=== PATIENT | male | born 1960 | race Caucasian/White ===

== ENCOUNTER 2017-08-07 23:31 | Inpatient (IN) | payer BC ==
[2017-08-07 23:44] VITALS: BMI 25.8
[2017-08-08 00:46] LABS: EOS % 1.5 % (0-4.5); HEMATOCRIT 45.8 % (35.4-49); HEMOGLOBIN 15.3 GM/dL (11.7-16.9); LYMPH % 22.8 % (8-40); MCH 30.6 pg (25.7-33.7); MCHC 33.3 g/dl (32.0-35.9); MEAN CELL VOLUME 91.9 fl (80-96); MONO % 9.5 % (3.8-10.2); NEUT % 65.2 % (42.8-82.8); PLATELET COUNT 317 K/MM3 (134-434); RBC 4.98 M/mm3 (4.00-5.60); RDW 14.7 % (11.9-15.9); WHITE BLOOD COUNT 12.3 K/mm3 (4.0-10.0)
[2017-08-08 01:15] LABS: ALBUMIN 3.6 g/dl (3.4-5.0); ANION GAP 12 (8-16); BLOOD UREA NITROGEN 27 mg/dL (7-18); CALCIUM 8.5 mg/dL (8.5-10.1); CHLORIDE 104 mmol/L (98-107); CO2 30 mmol/L (21-32); CREATININE 1.1 mg/dL (0.7-1.3); GLUCOSE,RANDOM 116 mg/dL (74-106); POTASSIUM 4.4 mmol/L (3.5-5.1); SGOT/AST 17 U/L (15-37); SGPT/ALT 20 U/L (12-78); SODIUM 146 mmol/L (136-145)
[2017-08-08 01:16] LABS: ALK PHOS 78 U/L (45-117); BILIRUBIN,TOTAL 0.3 mg/dL (0.2-1.0); TOT PROT 7.2 g/dl (6.4-8.2)
[2017-08-08] MEDS ORDERED: ENOXAPARIN NA (PORCINE) 100 MG/1 ML DISP.SYRIN SQ ONE (02:23)
[2017-08-08] MEDS ORDERED: ENOXAPARIN NA (PORCINE) 80 MG/0.8 ML DISP.SYRIN SQ ONE (02:26)
--- NOTE | 2017-08-08 03:41 | PDOC ---
History of Present Illness - General Chief Complaint: Pain, Acute Stated Complaint: LEG PAIN Time Seen by Provider: 08/08/17 00:05 - History of Present Illness Initial Comments: 08/08/17 03:32 CHIEF COMPLAINT: leg pain HISTORY OF PRESENT ILLNESS: 57 yo M with hx of hypertension, kidney stones, and femoral/popliteal arterial occlusions (s/p angioplasty [address] Stoner) presents to ED with pain to b/l legs, worse on L leg. He denies any chest pain or shortness of breath, but reports "numbness" to his left leg. Patient states he has had worsening discomfort over the past two weeks and that he saw his PCP Kika two days ago and had "lab work and an ultrasound done" but he has not received the results. When the pain worsened today he decided to come to the ER "because I wasn't taking any chances". No recent travel or sick contacts. PAST MEDICAL HISTORY: Denies past medical history FAMILY HISTORY: Denies SOCIAL HISTORY: Hx of smoking. SURGICAL HISTORY: Denies ALLERGIES: No known drug allergies REVIEW OF SYSTEMS General/Constitutional: Denies fever or chills. Denies weakness. HEENT: Denies change in vision. Denies ear pain or discharge. Denies sore throat. Cardiovascular: Denies chest pain or shortness of breath. Respiratory: Denies cough, wheezing, or hemoptysis. Gastrointestinal: Denies nausea, vomiting, diarrhea or constipation. Denies rectal bleeding. Genitourinary: Denies dysuria, frequency, or change in urination. Musculoskeletal: Bl leg pain, worse to left leg. Denies joint or muscle swelling or pain. Denies neck or back pain. Skin and breasts: Denies rash or easy bruising. Neurologic: Denies headache, vertigo, loss of consciousness, or loss of sensation. PHYSICAL EXAM General Appearance: Well-appearing, appropriately dressed. No apparent distress , no intoxication. HEENT: EOMI, PERRLA, normal ENT inspection, normal voice, TMs normal, pharynx normal. No conjunctival pallor. No photophobia, scleral icterus. Neck: Supple. Trachea midline. No tenderness, rigidity, carotid bruit, stridor , lymphadenopathy, or thyromegaly. Respiratory/Chest: Lungs CTAB. No shortness of breath, chest tenderness, respiratory distress, accessory muscle use. No crackles, rales, rhonchi, stridor , wheezing, dullness Cardiovascular: RRR. S1, S2. No JVD, murmur, bradycardia, tachycardia. Vascular Pulses: Dorsalis-Pedis pulses non palpable bilaterally. Gastrointestinal/Abdominal: Normal bowel sounds. Abdomen soft, non-distended. No tenderness or rebound tenderness. No organomegaly, pulsatile mass, guarding , hernia, hepatomegaly, splenomegaly. Lymphatic: No adenopathy, tenderness. Musculoskeletal/Extremities: B/l feet and lower legs cold to touch, no edema or erythema. Left leg pale with slight blue tinge, ischemic appearing .FROM of all extremities, normal capillary refill. Pelvis Stable. No CVA tenderness. Integumentary: Appropriate color, dry, warm. No cyanosis, erythema, jaundice or rash Neurologic: dinkey operator slate II-XII intact. Fully oriented, alert. Appropriate mood/affect. Motor strength 5/5. No appreciable EOM palsy, facial droop or sensory deficit. Past History - Past Medical History Allergies/Adverse Reactions: Allergies Allergy/AdvReac Type Severity Reaction Status Date / Time Penicillins Allergy Verified 08/07/17 23:42 Home Medications: Ambulatory Orders NK [No Known Home Medication] 08/08/17 Anemia: No Asthma: No Cancer: No Cardiac Disorders: No CVA: No COPD: No CHF: No Dementia: No Diabetes: No GI Disorders: No Disorders: No HTN: No Hypercholesterolemia: Yes Kidney Stones: Yes Liver Disease: No Seizures: No Thyroid Disease: No - Surgical History Abdominal Surgery: No Appendectomy: No Cardiac Surgery: No Cholecystectomy: No Lung Surgery: No Neurologic Surgery: No Orthopedic Surgery: No - Suicide/Smoking/Psychosocial Hx Smoking Status: Yes Smoking History: Never smoked Have you smoked in the past 12 months: No Number of Cigarettes Smoked Daily: 0 Cigars Per Day: 1 Information on smoking cessation initiated: No Hx Alcohol Use: No Drug/Substance Use Hx: No Substance Use Type: None Hx Substance Use Treatment: No *Physical Exam - Vital Signs Last Vital Signs Temp Pulse Resp BP Pulse Ox 97.6 F 102 H 20 141/84 98 08/07/17 23:42 08/07/17 23:42 08/07/17 23:42 08/07/17 23:42 08/07/17 23:42 ED Treatment Course - LABORATORY CBC & Chemistry Diagram: 08/08/17 00:30 08/08/17 00:30 - ADDITIONAL ORDERS Additional order review: Laboratory Results 08/08/17 08/08/17 00:30 00:30 D-Dimer > 5000 H Sodium 146 H Potassium 4.4 Chloride 104 Carbon Dioxide 30 D Anion Gap 12 BUN 27 H Creatinine 1.1 Creat Clearance w eGFR > 60 Random Glucose 116 H Calcium 8.5 Total Bilirubin 0.3 D AST 17 ALT 20 Alkaline Phosphatase 78 Total Protein 7.2 Albumin 3.6 08/08/17 00:30 RBC 4.98 MCV 91.9 MCHC 33.3 RDW 14.7 MPV 7.0 L Neutrophils % 65.2 Lymphocytes % 22.8 Monocytes % 9.5 Eosinophils % 1.5 Basophils % 1.0 - RADIOLOGY Radiology Studies Ordered: Category Date Time Status CHEST X-RAY PORTABLE* [RAD] Stat Radiology 08/08/17 02:44 Taken DUPLEX VASCUL US-2LEGS [US] Stat Ultrasound 08/08/17 00:29 Taken - Medications Given in the ED: ED Medications Discontinued Medications Generic Name Dose Route Start Last Admin Trade Name Freq PRN Reason Stop Dose Admin Enoxaparin Sodium 80 mg 08/08/17 02:23 08/08/17 02:30 Lovenox - SQ 08/08/17 02:24 80 mg ONCE ONE Administration Medical Decision Making - Medical Decision Making 08/08/17 03:49 57 yo M with hx of hypertension, kidney stones, and femoral/popliteal arterial occlusions (s/p angioplasty [address] Stoner) presents to ED with pain to b/l legs, worse on L leg. -duplex US b/l LE -CBc, CMP, D-dimer D-dimer >5000 US negative for DVT. Will admit for vascular consult and arteriogram in am. Discussed case with attending MD Carranza who accepts patient for inpatient admission. *DC/Admit/Observation/Transfer Diagnosis at time of Disposition: Arterial occlusion - Discharge Dispostion Admit: Yes - Referrals - Patient Instructions - Post Discharge Activity
--- NOTE | 2017-08-08 03:58 | HP ---
PCP: Lazaro Anand CHIEF COMPLAINT: Left leg pain HISTORY OF PRESENT ILLNESS: This is a 57 year old man who comes to the ED complaining of pain in his left calf. He reports that he first noted this pain while walking 5 days ago. It got worse as he continued to walk and improved with rest. It worsened over the next several days. He saw his PCP 2 days ago and says blood work and an US were done. Today the pain suddenly became worse where he could not bear weight on his left leg and it did not improve with rest , so he came to the ED. He says that both feet have been cold and numb for the last 5 days. His toes have been intermittently red and white. He says he has not been on any medication since the bypass surgery. He quit smoking cigarettes before the surgery but continues to smoke cigars. PAST MEDICAL HISTORY PAD PAST SURGICAL HISTORY Aortobifemoral bypass 2010 Left popliteal artery angioplasty 2011 Allergies Penicillins Allergy (Verified 08/07/17 23:42) Home Medications Medication Instructions Recorded NK [No Known Home Medication] 08/08/17 Social History: Smoking: Smokes 2 cigars/day. Quit smoking cigarettes 2010. Alcohol: Drinks a few shots of Marshall Hauser every night. Drugs: Denies Recent Travel: No Family History: Non-contributory REVIEW OF SYSTEMS CONSTITUTIONAL: Absent: fever, chills, diaphoresis, generalized weakness, malaise, loss of appetite, weight change HEENT: Absent: rhinorrhea, nasal congestion, throat pain, throat swelling, difficulty swallowing, mouth swelling, ear pain, eye pain, visual changes CARDIOVASCULAR: Absent: chest pain, syncope, palpitations, lightheadedness, peripheral edema RESPIRATORY: Absent: cough, shortness of breath, dyspnea with exertion, orthopnea, wheezing, stridor, hemoptysis GASTROINTESTINAL: Absent: abdominal pain, abdominal distension, nausea, vomiting , diarrhea, constipation, melena, hematochezia GENITOURINARY: Absent: dysuria, frequency, urgency, hesitancy, hematuria, flank pain MUSCULOSKELETAL: Present: left calf pain. Absent: arthralgia, joint swelling, back pain, neck pain SKIN: Absent: rash, itching HEMATOLOGIC/IMMUNOLOGIC: Absent: easy bleeding, easy bruising, lymphadenopathy, frequent infections ENDOCRINE: Absent: unexplained weight gain, unexplained weight loss, heat intolerance, cold intolerance NEUROLOGIC: Present: numbness of both feet. Absent: headache, focal weakness, dizziness, unsteady gait, seizure, mental status changes, bladder or bowel incontinence PSYCHIATRIC: Absent: anxiety, depression, suicidal or homicidal ideation, hallucinations. PHYSICAL EXAMINATION Vital Signs - 24 hr 08/07/17 23:42 Temperature 97.6 F Pulse Rate 102 H Respiratory 20 Rate Blood Pressure 141/84 O2 Sat by Pulse 98 Oximetry (%) GENERAL: Awake, alert, and fully oriented, in no acute distress. HEAD: Normal with no signs of trauma. EYES: Pupils equal, round and reactive to light, extraocular movements intact, sclerae anicteric, conjunctivae clear. EARS, NOSE, THROAT: Ears normal, nares patent, oropharynx clear without exudates. Moist mucous membranes. NECK: Normal range of motion, supple without lymphadenopathy, JVD, or masses. LUNGS: Breath sounds equal, clear to auscultation bilaterally. No wheezes, and no crackles. No accessory muscle use. HEART: Regular rhythm, tachycardic, normal S1 and S2 without murmur, rub or gallop. ABDOMEN: Soft, nontender, not distended, normoactive bowel sounds, no guarding, no rebound, no masses. No hepatomegaly or splenomegaly. MUSCULOSKELETAL: Normal range of motion at all joints. No bony deformities or tenderness. No CVA tenderness. UPPER EXTREMITIES: 2+ pulses, warm, well-perfused. No cyanosis. No clubbing. No peripheral edema. LOWER EXTREMITIES: Popliteal pulses 1+ bilaterally. Dorsalis pedis pulses absent bilaterally. Distal 1/3 of both lower legs and both feet are cold with hair loss. Toes of both feet are dusky. (+) left calf tenderness. NEUROLOGICAL: Cranial nerves II-XII intact. Normal speech. Gait not observed. PSYCHIATRIC: Cooperative. Good eye contact. Appropriate mood and affect. SKIN: Warm, dry, normal turgor, no rashes or lesions noted, normal capillary refill. Laboratory Results - last 24 hr 08/08/17 08/08/17 08/08/17 00:30 00:30 00:30 WBC 12.3 H RBC 4.98 Hgb 15.3 Hct 45.8 MCV 91.9 MCH 30.6 MCHC 33.3 RDW 14.7 Plt Count 317 MPV 7.0 L Neutrophils % 65.2 Lymphocytes % 22.8 Monocytes % 9.5 Eosinophils % 1.5 Basophils % 1.0 D-Dimer > 5000 H Sodium 146 H Potassium 4.4 Chloride 104 Carbon Dioxide 30 D Anion Gap 12 BUN 27 H Creatinine 1.1 Creat Clearance w eGFR > 60 Random Glucose 116 H Calcium 8.5 Total Bilirubin 0.3 D AST 17 ALT 20 Alkaline Phosphatase 78 Total Protein 7.2 Albumin 3.6 ASSESSMENT/PLAN: This is a 57 year old man with a history of PAD, aortobifemoral bypass, angioplasty of left popliteal artery who presented to the ED with worsening pain in his left leg over the last 5 days. He was found to have WBC 12.3, D- dimer >5000, Na 146. Venous doppler is negative for DVT. 1. PAD with claudication and ischemia of left foot - Start heparin IV drip - CTA of aorta with runoff - Smoking cessation - Check HgbA1c, lipid profile - Vascular surgery evaluation 2. Leukocytosis - Likely secondary to leg ischemia 3. Hypernatremia, mild - Monitor electrolytes 4. Nicotine dependence - Discussed smoking cessation Visit type - Emergency Visit Emergency Visit: Yes ED Registration Date: 08/08/17 Care time: The patient presented to the Emergency Department on the above date and was hospitalized for further evaluation of their emergent condition. - New Patient This patient is new to me today: Yes Date on this admission: 08/08/17 - Critical Care Critical Care patient: No Hospitalist Screening - Colonoscopy Questionnaire Colonoscopy Questionnaire: Colonoscopy Questionnaire - Patient: 50 - 75 years old and never had a screening colonoscopy: No History of colon or rectal polyps, or CA: No History of IBD, Crohn's disease or UC: No History of abdominal radiation therapy as a child: No - Relative: 1 with colon or rectal CA, or polyps at age 60 or younger: No Colon or rectal CA diagnosed at age 45 or younger: No Multiple relatives with colon or rectal CA: No - Outcome: Screening Result: Negative Screen
[2017-08-08] MEDS ORDERED: ONDANSETRON 4 MG/2 ML VIAL IVPUSH PRN (04:03)
[2017-08-08] MEDS ORDERED: HEPARIN NA (PORCINE) 5,000 UNITS/ML 1ML VIAL IVPUSH PRN ×2 (04:29)
--- NOTE | 2017-08-08 04:43 | PDOC ---
*Physical Exam - Vital Signs Last Vital Signs Temp Pulse Resp BP Pulse Ox 97.6 F 102 H 20 141/84 98 08/07/17 23:42 08/07/17 23:42 08/07/17 23:42 08/07/17 23:42 08/07/17 23:42 ED Treatment Course - LABORATORY CBC & Chemistry Diagram: 08/08/17 00:30 08/08/17 00:30 - ADDITIONAL ORDERS Additional order review: Laboratory Results 08/08/17 08/08/17 00:30 00:30 D-Dimer > 5000 H Sodium 146 H Potassium 4.4 Chloride 104 Carbon Dioxide 30 D Anion Gap 12 BUN 27 H Creatinine 1.1 Creat Clearance w eGFR > 60 Random Glucose 116 H Calcium 8.5 Total Bilirubin 0.3 D AST 17 ALT 20 Alkaline Phosphatase 78 Total Protein 7.2 Albumin 3.6 08/08/17 00:30 RBC 4.98 MCV 91.9 MCHC 33.3 RDW 14.7 MPV 7.0 L Neutrophils % 65.2 Lymphocytes % 22.8 Monocytes % 9.5 Eosinophils % 1.5 Basophils % 1.0 - Medications Given in the ED: ED Medications Discontinued Medications Generic Name Dose Route Start Last Admin Trade Name Freq PRN Reason Stop Dose Admin Enoxaparin Sodium 80 mg 08/08/17 02:23 08/08/17 02:30 Lovenox - SQ 08/08/17 02:24 80 mg ONCE ONE Administration Medical Decision Making - Medical Decision Making 08/08/17 04:42 agree with care from YENI Wagoner *DC/Admit/Observation/Transfer Diagnosis at time of Disposition: Arterial occlusion - Referrals - Patient Instructions - Post Discharge Activity
[2017-08-08] MEDS ORDERED: morphine CARPU-JECT 2 MG/1 ML DISP.SYRIN IVPUSH ONE (04:50)
[2017-08-08] MEDS ORDERED: MORPHINE SULFATE 10 MG/1 ML *VIAL ONE (04:55)
[2017-08-08] MEDS ORDERED: HEPARIN INFUSION - 25,000 UNITS/500 ML INFUS.BAG IVPB ONE (05:12)
[2017-08-08 05:50] LABS: INR 1.1 (0.82-1.09); PROTHROMBIN TIME (PATIENT) 12.4 SEC (9.98-11.88)
[2017-08-08] MEDS: HEPARIN - 25,000 UNIT in SODIUM CHLORIDE 495 ML IV SCH (05:50)
--- NOTE | 2017-08-08 09:33 | EKG ---
Test Reason : Blood Pressure : / mmHG Vent. Rate : 076 BPM Atrial Rate : 076 BPM P-R Int : 128 ms QRS Dur : 094 ms QT Int : 402 ms P-R-T Axes : 025 053 035 degrees QTc Int : 452 ms NORMAL SINUS RHYTHM EARLY REPOLARIZATION WHEN COMPARED WITH ECG OF 19-OCT-2010 15:33, NO SIGNIFICANT CHANGE WAS FOUND Confirmed by VERNA ASHLEY MD ([id number]) on 08/08/2017 9:33:01 AM Referred By: Confirmed By:VERNA ASHLEY MD
[2017-08-08] MEDS: ACETAMINOPHEN 325 MG TABLET (FP) PO PRN ×2 (10:50→16:25)
--- NOTE | 2017-08-08 11:46 | CON.CARD ---
Cardiology Consult (text) - Consultation Consultation Note: cc b/l leg pain hpi: 57 m hx htn, pad s/p remote aortobifemoral bypass 2010 and le angioplasty 2011 here with b/l leg pain. Past few days pt has had claudication, numbness, coldness in b/l calves/feet. No cp, sob, palps, dizzy, loc, pnd, orthopnea, le edema. No hx hrt dz. Per prelim report, cta le's show occlusion with plans for vascular intervention. pmh: per hpi psh: le bypass social: +tob ros: per hpi; no nvd, fever, cough, nasal congestion, gib, hematuria, dysuria fam: no premature cad, scd meds: Home Medications Medication Instructions Recorded NK [No Known Home Medication] 08/08/17 pe: Vital Signs Period Temp Pulse Resp BP Sys/White Pulse Ox Last 24 Hr 97.6 F-98.4 F 82-102 16-20 133-152/75-84 98-98 nad no jvd rrr s1s2 no mrg cta bl nl eff aaox3 no le edema no carotid bruits, weak distal pulses no jaundice diaphoresis abd nt nd pos bs Laboratory Last Values WBC 12.3 K/mm3 (4.0-10.0) H 08/08/17 00:30 RBC 4.98 M/mm3 (4.00-5.60) 08/08/17 00:30 Hgb 15.3 GM/dL (11.7-16.9) 08/08/17 00:30 Hct 45.8 % (35.4-49) 08/08/17 00:30 MCV 91.9 fl (80-96) 08/08/17 00:30 MCH 30.6 pg (25.7-33.7) 08/08/17 00:30 MCHC 33.3 g/dl (32.0-35.9) 08/08/17 00:30 RDW 14.7 % (11.9-15.9) 08/08/17 00:30 Plt Count 317 K/MM3 (134-434) 08/08/17 00:30 MPV 7.0 fl (7.5-11.1) L 08/08/17 00:30 Neutrophils % 65.2 % (42.8-82.8) 08/08/17 00:30 Lymphocytes % 22.8 % (8-40) 08/08/17 00:30 Monocytes % 9.5 % (3.8-10.2) 08/08/17 00:30 Eosinophils % 1.5 % (0-4.5) 08/08/17 00:30 Basophils % 1.0 % (0-2.0) 08/08/17 00:30 PT with INR 12.40 SEC (9.98-11.88) H 08/08/17 05:03 INR 1.10 (0.82-1.09) 08/08/17 05:03 PTT (Actin FS) 42.9 SECONDS (26.9-34.4) H 08/08/17 05:03 D-Dimer > 5000 ng/ml (0-500) H 08/08/17 00:30 Sodium 146 mmol/L (136-145) H 08/08/17 00:30 Potassium 4.4 mmol/L (3.5-5.1) 08/08/17 00:30 Chloride 104 mmol/L (98-107) 08/08/17 00:30 Carbon Dioxide 30 mmol/L (21-32) D 08/08/17 00:30 Anion Gap 12 (8-16) 08/08/17 00:30 BUN 27 mg/dL (7-18) H 08/08/17 00:30 Creatinine 1.1 mg/dL (0.7-1.3) 08/08/17 00:30 Creat Clearance w eGFR > 60 (>60) 08/08/17 00:30 Random Glucose 116 mg/dL (74-106) H 08/08/17 00:30 Calcium 8.5 mg/dL (8.5-10.1) 08/08/17 00:30 Total Bilirubin 0.3 mg/dL (0.2-1.0) D 08/08/17 00:30 AST 17 U/L (15-37) 08/08/17 00:30 ALT 20 U/L (12-78) 08/08/17 00:30 Alkaline Phosphatase 78 U/L (45-117) 08/08/17 00:30 Total Protein 7.2 g/dl (6.4-8.2) 08/08/17 00:30 Albumin 3.6 g/dl (3.4-5.0) 08/08/17 00:30 cxr: clear lungs ecg: sr, nl intervals, no ischemic changes mibi 11/2016: no ischemia, lvef 80 a/p: 57 m hx htn, pad s/p remote aortobifemoral bypass 2010 and le angioplasty 2011 here with b/l leg pain. pad: -here with recurrence of le stenosis/occlusion -cont hep gtt -revascularization plans per vascular -pt has no unstable cardiac issues at present and recent nuclear stress test showed no ischemia. No further preop cardiac testing needed at this time. Pt has intermediate risk of periop cardiac events for the planned vascular intervention/surgery. htn: -not on meds at home, monitor here tob use: -smoking cessation
--- NOTE | 2017-08-08 12:02 | PN ---
Progress Note, Physician Chief Complaint: seen and examined complaining of lower extremity pain on heparin drip seen by cardiology - Current Medication List Current Medications: Active Medications Acetaminophen (Tylenol -) 650 mg PO Q4H PRN PRN Reason: PAIN Last Admin: 08/08/17 10:50 Dose: 650 mg Heparin Sodium (Porcine) (Heparin -) 1,000 unit IVPUSH PRN PRN PRN Reason: Heparin Heparin Sodium (Porcine) (Heparin -) 5,000 unit IVPUSH PRN PRN PRN Reason: Heparin Heparin Sodium (Porcine) 25, (000 unit/ Sodium Chloride) 500 mls @ 20 mls/hr IV TITR GERALD; 1,000 UNIT/HR PRN Reason: Protocol Last Admin: 08/08/17 05:50 Dose: 1,000 unit/hr, 20 mls/hr Ondansetron HCl (Zofran Injection) 4 mg IVPUSH Q6H PRN PRN Reason: NAUSEA Oxycodone HCl (Roxicodone -) 5 mg PO Q4H PRN PRN Reason: PAIN LEVEL 7 - 10 - Objective Vital Signs: Vital Signs Temperature 98.4 F 08/08/17 09:59 Pulse Rate 85 08/08/17 09:59 Respiratory Rate 16 08/08/17 09:59 Blood Pressure 152/75 08/08/17 09:59 O2 Sat by Pulse Oximetry (%) 98 08/08/17 09:00 Constitutional: Yes: Calm Cardiovascular: Yes: Regular Rate and Rhythm, S1, S2 Respiratory: Yes: CTA Bilaterally Gastrointestinal: Yes: Normal Bowel Sounds, Soft Extremities: Yes: Calf Tenderness (swelling) Edema: Yes Labs: CBC, BMP 08/08/17 00:30 08/08/17 00:30 INR, PTT INR 1.10 (0.82-1.09) 08/08/17 05:03 Problem List - Problems (1) Arterial occlusion Assessment/Plan: iv heparin vascular surery consult cardiology saw the patient pain control Code(s): I70.90 - UNSPECIFIED ATHEROSCLEROSIS
[2017-08-08] MEDS: oxyCODONE HCL 5 MG TABLET PO PRN ×3 (12:06→22:31)
--- NOTE | 2017-08-08 12:39 | CONSULT ---
Consult - History of Present Illness History of Present Illness: 57 year old man with history of aorto-bifemoral bypass in 2010 and left popliteal angioplasty in 2011 was well until 5 days ago when he developed left calf pain. The pain worsened and he came to ER yesterday. CTA shows occlusion of bypass graft with no flow in the [place] distal aorta and iliacs. Right common femoral is patent with continuous runoff to foot. Left SFA is patent but popliteal and proximal tibials are occluded. Currently he has pain and numbness in left calf and foot. He states the numbness has been chronic for years. - History Source History Provided By: Patient, Medical Record - Past Medical History Cardio/Vascular: Yes: HTN - Past Surgical History Past Surgical History: Yes: Bypass - Alcohol/Substance Use Hx Alcohol Use: Yes - Smoking History Smoking history: Current every day smoker (Cigars) Have you smoked in the past 12 months: No Aproximately how many cigarettes per day: 0 Home Medications - Allergies Allergies/Adverse Reactions: Allergies Allergy/AdvReac Type Severity Reaction Status Date / Time Penicillins Allergy Verified 08/07/17 23:42 - Home Medications Home Medications: Ambulatory Orders NK [No Known Home Medication] 08/08/17 Physical Exam Vital Signs: Vital Signs Temperature 98.4 F 08/08/17 09:59 Pulse Rate 85 08/08/17 09:59 Respiratory Rate 16 08/08/17 09:59 Blood Pressure 152/75 08/08/17 09:59 O2 Sat by Pulse Oximetry (%) 98 08/08/17 09:00 Constitutional: Yes: No Distress Cardiovascular: Yes: Regular Rate and Rhythm Gastrointestinal: Yes: Soft Extremities: Yes: Cool (Left foot) Edema: No Peripheral Pulses WNL: No ...Motor Strength: LLE (Moves toes and ankles) Labs: CBC, BMP 08/08/17 00:30 08/08/17 00:30 Imaging - Results Cat Scan: Image Reviewed Problem List - Problems (1) Thrombosis of aortic bifurcation bypass graft Assessment/Plan: Subacute occlusion of aorto-bifem graft with left popliteal occlusion causing more severe symptoms on left. Currently on Heparin. Attempt to declot graft and restore flow to femoral arteries indicated. Surgery to be scheduled for 08/09 Code(s): T82.868A - THROMBOSIS DUE TO VASCULAR PROSTH DEV/GRFT, INIT Qualifiers: Encounter type: initial encounter Qualified Code(s): T82.868A - Thrombosis due to vascular prosthetic devices, implants and grafts, initial encounter
[2017-08-08] MEDS ORDERED: VANCOMYCIN 1,000 MG in DEXTROSE 5%-WATER - 250 ML IVPB ONE (13:00)
[2017-08-09] MEDS: ACETAMINOPHEN 325 MG TABLET (FP) PO PRN ×2 (02:17→08:40)
[2017-08-09] MEDS: oxyCODONE HCL 5 MG TABLET PO PRN ×2 (02:18→08:40)
[2017-08-09] MEDS: HEPARIN - 25,000 UNIT in SODIUM CHLORIDE 495 ML IV SCH (06:14)
[2017-08-09 08:06] LABS: BASO % 0.7 % (0-2.0); EOS % 0.8 % (0-4.5); HEMATOCRIT 45.6 % (35.4-49); MCH 30.4 pg (25.7-33.7); MCHC 32.9 g/dl (32.0-35.9); MEAN CELL VOLUME 92.3 fl (80-96); MEAN PLT VOLUME 7.3 fl (7.5-11.1); MONO % 8.1 % (3.8-10.2); NEUT % 66.4 % (42.8-82.8); PLATELET COUNT 332 K/MM3 (134-434); RBC 4.93 M/mm3 (4.00-5.60); RDW 14.7 % (11.9-15.9); WHITE BLOOD COUNT 12.4 K/mm3 (4.0-10.0)
[2017-08-09 08:10] LABS: ALBUMIN 3.3 g/dl (3.4-5.0); ANION GAP 6 (8-16); BLOOD UREA NITROGEN 16 mg/dL (7-18); CALCIUM 8.7 mg/dL (8.5-10.1); CHLORIDE 105 mmol/L (98-107); CO2 26 mmol/L (21-32); GLUCOSE,RANDOM 109 mg/dL (74-106); POTASSIUM 4.2 mmol/L (3.5-5.1); SODIUM 137 mmol/L (136-145)
[2017-08-09 08:13] LABS: ALK PHOS 83 U/L (45-117); BILIRUBIN,TOTAL 0.6 mg/dL (0.2-1.0); CHOLESTEROL 176 mg/dL (50-200); CREATININE 0.8 mg/dL (0.7-1.3); HDL CHOLESTEROL 40 mg/dL (40-60); LDL CHOLESTEROL (ONLY SJRH) 119 mg/dL (5-100); SGOT/AST 76 U/L (15-37); SGPT/ALT 38 U/L (12-78); TRIGLYCERIDES 129 mg/dL (35-160)
[2017-08-09] MEDS ORDERED: PAPAVERINE HCL 30 MG/1 ML 10 ML VIAL NR ONE (09:07)
[2017-08-09] MEDS ORDERED: POVIDONE-IODINE OINTMENT 10% - 28.4 GM TUBE ONE (09:07)
[2017-08-09] MEDS ORDERED: LIDOCAINE HCL 1%, 10 MG/ML (20ML VIAL) ONE (09:07)
[2017-08-09] MEDS ORDERED: HEPARIN NA (PORCINE) 5,000 UNITS/ML 1ML VIAL ONE ×6 (09:07→22:54)
[2017-08-09] MEDS ORDERED: VANCOMYCIN 1,000 MG VIAL (RESTRICTED TO ID ONLY) IVPB ONE (09:45)
[2017-08-09] MEDS ORDERED: MIDAZOLAM HCL 2 MG/2 ML SINGLE DOSE VIAL ONE (09:59)
[2017-08-09] MEDS ORDERED: VANCOMYCIN 1 GRAM (PRE-DOCKED) 1,000 MG/250 ML BAG IVPB ONE (10:00)
[2017-08-09] MEDS ORDERED: VANCOMYCIN 1,000 MG in DEXTROSE 5%-WATER - 250 ML IVPB ONE (10:00)
[2017-08-09] MEDS ORDERED: DEXAMETHASONE SOD PHOSPHATE 4 MG/1 ML VIAL ONE ×2 (10:15→22:31)
[2017-08-09] MEDS ORDERED: PROPOFOL 20 ML ONE ×2 (10:16→22:14)
[2017-08-09] MEDS ORDERED: LIDOCAINE HCL/PF 2% SDV 5ML VIAL ONE ×2 (10:16→22:14)
[2017-08-09] MEDS ORDERED: ROCURONIUM BROMIDE 50 MG/5 ML VIAL ONE ×2 (10:17→22:15)
[2017-08-09] MEDS ORDERED: HEPARIN NA (PORCINE) 5,000 UNITS/ML 1ML VIAL IVPUSH ONE (11:05)
[2017-08-09] MEDS ORDERED: PT OWN MED DRAWER 7, Y5N ONE (13:41)
[2017-08-09] MEDS ORDERED: HYDROmorphone HCL CARPU-JECT 4 MG/1 ML DISP.SYRIN IVPUSH PRN (14:18)
--- NOTE | 2017-08-09 14:57 | OP ---
Operative Note - Note: Operative Date: 08/09/17 Pre-Operative Diagnosis: Thrombosed aortobifemoral bypass Operation: Bilateral ilio-femoral endarterectomies, patch angioplasty both femoral arteries. Angioplasty aorta Findings: Thrombosed graft from renal arteries to femoral arteries Small amount of thrombus retrieved from left SFA. Occlusion left DFA Patent renal arteries. Implants: dacron patch Post-Operative Diagnosis: Same as Pre-op Surgeon: Carlos Stoner Surgical Garment Fitter: Leah Robertson Anesthesiologist/ELEMENTARY PRINCIPAL: Alec Mcdaniels Anesthesia: General Specimens Removed: Thrombus from both femoral arteries Estimated Blood Loss (mls): 600
[2017-08-09] MEDS ORDERED: HEPARIN - 25,000 UNIT in SODIUM CHLORIDE 495 ML IV SCH (15:00)
[2017-08-09] MEDS ORDERED: HYDROmorphone HCL CARPU-JECT 4 MG/1 ML DISP.SYRIN IVPB PRN (15:10)
[2017-08-09] MEDS ORDERED: oxyCODONE HCL 5 MG TABLET PO PRN (15:21)
[2017-08-09] MEDS ORDERED: ACETAMINOPHEN 325 MG TABLET (FP) PO PRN (15:21)
[2017-08-09] MEDS ORDERED: ONDANSETRON 4 MG/2 ML VIAL IVPUSH PRN (15:21)
[2017-08-09] MEDS ORDERED: HEPARIN NA (PORCINE) 5,000 UNITS/ML 1ML VIAL IVPUSH PRN ×2 (15:24)
[2017-08-09] MEDS ORDERED: HYDROmorphone HCL CARPU-JECT 4 MG/1 ML DISP.SYRIN ONE (15:33)
[2017-08-09] MEDS: HYDROmorphone HCL CARPU-JECT 1 MG/1 ML DISP.SYRIN IVPUSH PRN ×4 (15:33→16:03)
[2017-08-09 15:53] LABS: BASO % 0.1 % (0-2.0); HEMATOCRIT 39.3 % (35.4-49); HEMOGLOBIN 13.2 GM/dL (11.7-16.9); LYMPH % 7.9 % (8-40); MCH 30.9 pg (25.7-33.7); MCHC 33.5 g/dl (32.0-35.9); MEAN CELL VOLUME 92.3 fl (80-96); MEAN PLT VOLUME 7.4 fl (7.5-11.1); MONO % 2.6 % (3.8-10.2); NEUT % 89.4 % (42.8-82.8); PLATELET COUNT 295 K/MM3 (134-434); RBC 4.26 M/mm3 (4.00-5.60); RDW 14.3 % (11.9-15.9); WHITE BLOOD COUNT 16.3 K/mm3 (4.0-10.0)
[2017-08-09 16:32] LABS: ANION GAP 5 (8-16); BLOOD UREA NITROGEN 15 mg/dL (7-18); CALCIUM 7.9 mg/dL (8.5-10.1); CHLORIDE 104 mmol/L (98-107); CO2 28 mmol/L (21-32); CREATININE 0.9 mg/dL (0.7-1.3); GLUCOSE,RANDOM 181 mg/dL (74-106); POTASSIUM 4.5 mmol/L (3.5-5.1); SODIUM 137 mmol/L (136-145)
--- NOTE | 2017-08-09 16:58 | PN ---
Physical Exam: SUBJECTIVE: Patient seen and examined. Patient reports some pain in his left leg. OBJECTIVE: Vital Signs Period Temp Pulse Resp BP Sys/White Pulse Ox Last 24 Hr 97.8 F-99.4 F 71-123 16-20 132-162/70-89 95-99 GENERAL: The patient is awake, alert, and fully oriented, in no acute distress. LUNGS: Breath sounds equal, clear to auscultation bilaterally, no wheezes, no crackles, no accessory muscle use. HEART: Regular rate and rhythm, S1, S2 without murmur, rub or gallop. ABDOMEN: Soft, nontender, nondistended, normoactive bowel sounds, no guarding, no rebound, no hepatosplenomegaly, no masses. EXTREMITIES: Left foot warm, right foot cool, no edema. Laboratory Results - last 24 hr 08/08/17 08/08/17 08/09/17 14:17 21:50 06:30 WBC 12.4 H RBC 4.93 Hgb 15.0 Hct 45.6 MCV 92.3 MCH 30.4 MCHC 32.9 RDW 14.7 Plt Count 332 MPV 7.3 L Neutrophils % 66.4 Lymphocytes % 24.0 Monocytes % 8.1 Eosinophils % 0.8 Basophils % 0.7 PTT (Actin FS) Sodium Potassium Chloride Carbon Dioxide Anion Gap BUN Creatinine Creat Clearance w eGFR POC Glucometer 178 Random Glucose Hemoglobin A1c % Calcium Total Bilirubin AST ALT Alkaline Phosphatase Total Protein Albumin Triglycerides Cholesterol Total LDL Cholesterol HDL Cholesterol Blood Type A POSITIVE Antibody Screen Negative Crossmatch IS Only See Detail 08/09/17 08/09/17 08/09/17 06:30 06:30 06:30 WBC RBC Hgb Hct MCV MCH MCHC RDW Plt Count MPV Neutrophils % Lymphocytes % Monocytes % Eosinophils % Basophils % PTT (Actin FS) 41.1 H Sodium 137 Potassium 4.2 Chloride 105 Carbon Dioxide 26 Anion Gap 6 L BUN 16 D Creatinine 0.8 D Creat Clearance w eGFR > 60 POC Glucometer Random Glucose 109 H Hemoglobin A1c % 5.6 Calcium 8.7 Total Bilirubin 0.6 D AST 76 H D ALT 38 D Alkaline Phosphatase 83 Total Protein 7.0 Albumin 3.3 L Triglycerides 129 Cholesterol 176 Total LDL Cholesterol 119 H HDL Cholesterol 40 Blood Type Antibody Screen Crossmatch IS Only 08/09/17 08/09/17 13:25 13:25 WBC 16.3 H D RBC 4.26 Hgb 13.2 D Hct 39.3 MCV 92.3 MCH 30.9 MCHC 33.5 RDW 14.3 Plt Count 295 MPV 7.4 L Neutrophils % 89.4 H D Lymphocytes % 7.9 L D Monocytes % 2.6 L Eosinophils % 0.0 D Basophils % 0.1 PTT (Actin FS) Sodium 137 Potassium 4.5 Chloride 104 Carbon Dioxide 28 Anion Gap 5 L BUN 15 Creatinine 0.9 Creat Clearance w eGFR POC Glucometer Random Glucose 181 H D Hemoglobin A1c % Calcium 7.9 L Total Bilirubin AST ALT Alkaline Phosphatase Total Protein Albumin Triglycerides Cholesterol Total LDL Cholesterol HDL Cholesterol Blood Type Antibody Screen Crossmatch IS Only Active Medications Generic Name Dose Route Start Last Admin Trade Name Freq PRN Reason Stop Dose Admin Acetaminophen 650 mg 08/09/17 15:21 Tylenol - PO Q4H PRN PAIN Chlorhexidine Gluconate 1 applic 08/09/17 22:00 Hibiclens For Decolonization - TP HS GERALD Heparin Sodium (Porcine) 1,000 unit 08/09/17 15:24 Heparin - IVPUSH PRN PRN Heparin Heparin Sodium (Porcine) 5,000 unit 08/09/17 15:24 Heparin - IVPUSH PRN PRN Heparin Hydromorphone HCl 1 mg 08/09/17 15:10 Dilaudid Injection - IVPB Q4H PRN PAIN LEVEL 1-5 Dextrose/Sodium Chloride 1,000 mls @ 100 mls/hr 08/09/17 15:15 D5-1/2ns - IV ASDIR GERALD Heparin Sodium (Porcine) 25, 500 mls @ 20 mls/hr 08/09/17 15:00 000 unit/ Sodium Chloride IV TITR [facility] Protocol 1,000 UNIT/HR Vancomycin HCl 1,000 mg/ 250 mls @ 166.667 mls/hr 08/09/17 22:00 Dextrose IVPB 08/09/17 23:29 BID [facility] Protocol Mupirocin 1 applic 08/09/17 22:00 Bactroban Ointment (For Decolonization) - NS 08/14/17 21:59 BID GERALD Ondansetron HCl 4 mg 08/09/17 15:21 Zofran Injection IVPUSH Q6H PRN NAUSEA Oxycodone HCl 5 mg 08/09/17 15:21 Roxicodone - PO Q4H PRN PAIN LEVEL 7 - 10 ASSESSMENT/PLAN: This is a 57 year old man with a history of PAD, aortobifemoral bypass, angioplasty of left popliteal artery who presented to the ED with worsening pain in his left leg x 5 days. He was found to have WBC 12.3, D-dimer >5000, Na 146. Venous doppler was negative for DVT. CTA showed occlusion of bypass graft, left popliteal and proximal tibials. 1. PAD with occlusion of aorto-bifemoral bypass graft and left popliteal artery - s/p bilateral ilio-femoral endarterectomies, patch angioplasty both femoral arteries, angioplasty aorta today - Continue heparin IV drip - Smoking cessation 2. Leukocytosis - Likely secondary to leg ischemia 3. Hypernatremia, mild - Resolved 4. Nicotine dependence - Discussed smoking cessation Visit type - Emergency Visit Emergency Visit: Yes ED Registration Date: 08/08/17 Care time: The patient presented to the Emergency Department on the above date and was hospitalized for further evaluation of their emergent condition. - New Patient This patient is new to me today: No - Critical Care Critical Care patient: No - Discharge Referral Referred to [facility] Med P.C.: No
[2017-08-09] MEDS: DEXTROSE 5%-0.45% SALINE 1,000 ML IV SCH (17:00)
--- NOTE | 2017-08-09 19:45 | CONSULT ---
Consult - text type - Consultation Consultation Note: [facility] Pt seen and examined in ICU CC: L calf pain, now s/p Bilateral ilio-femoral endarterectomies, patch angioplasty both femoral arteries. Angioplasty aorta HPI: Briefly 57 year old man with PAD (Aorto-fem bypass 2010, L pop art angioplasty 2011) p/w L calf pain x 5 days ago c/w claudication, acutely worse in hours preceding presentation to ED this am. Seen by Dr Vargas, underwent CTA with runoff which showed occluded aorto fem-bypass, occluded L pop but with distal reconstitution and occlusion of R dosarl pedis. He was otherwise stable , started on heparin gtt in ED and brought to ED where Dr Vargas performed Bilateral ilio-femoral endarterectomies, patch angioplasty both femoral arteries , & Angioplasty aorta. There was approx 600cc blood loss. Pt recovered in PACU. Brought to ICU where it was noted that there was no signal in R foot, neither DP or PT. Surgery was made aware of finding. Repeat imaging being pursued. PAST MEDICAL HISTORY PAD PAST SURGICAL HISTORY Aortobifemoral bypass 2010 Left popliteal artery angioplasty 2011 Allergies Penicillins Allergy (Verified 08/07/17 23:42) Ambulatory Orders NK [No Known Home Medication] 08/08/17 Active Medications Acetaminophen (Tylenol -) 650 mg PO Q4H PRN PRN Reason: PAIN Chlorhexidine Gluconate (Hibiclens For Decolonization -) 1 applic TP HS GERALD Heparin Sodium (Porcine) (Heparin -) 1,000 unit IVPUSH PRN PRN PRN Reason: Heparin Heparin Sodium (Porcine) (Heparin -) 5,000 unit IVPUSH PRN PRN PRN Reason: Heparin Hydromorphone HCl (Dilaudid Injection -) 1 mg IVPB Q4H PRN PRN Reason: PAIN LEVEL 1-5 Dextrose/Sodium Chloride (D5-1/2ns -) 1,000 mls @ 100 mls/hr IV ASDIR GERALD Last Admin: 08/09/17 17:00 Dose: 100 mls/hr Heparin Sodium (Porcine) 25, (000 unit/ Sodium Chloride) 500 mls @ 20 mls/hr IV TITR GERALD; 1,000 UNIT/HR PRN Reason: Protocol Last Admin: 08/09/17 17:00 Dose: 1,000 unit/hr, 20 mls/hr Vancomycin HCl 1,000 mg/ (Dextrose) 250 mls @ 166.667 mls/hr IVPB BID GERALD PRN Reason: Protocol Stop: 08/09/17 23:29 Mupirocin (Bactroban Ointment (For Decolonization) -) 1 applic NS BID [facility] Stop: 08/14/17 21:59 Ondansetron HCl (Zofran Injection) 4 mg IVPUSH Q6H PRN PRN Reason: NAUSEA Oxycodone HCl (Roxicodone -) 5 mg PO Q4H PRN PRN Reason: PAIN LEVEL 7 - 10 Social History: Smoking: Smokes 2 cigars/day. Quit smoking cigarettes 2010. Alcohol: Drinks a few shots of Marshall Hauser every night. Drugs: Denies Recent Travel: No Family History: Non-contributory REVIEW OF SYSTEMS: 10 pt review negative except as per HPI PHYSICAL EXAMINATION Vital Signs Temp 98.5 F 08/09/17 17:00 Pulse 99 H 08/09/17 18:56 Resp 18 08/09/17 18:56 BP 132/91 08/09/17 18:56 Pulse Ox 100 08/09/17 17:24 Intake & Output 08/08/17 08/09/17 08/09/17 23:59 11:59 23:59 Intake Total 860 3290 450 Output Total 600 1300 Balance 860 2690 -850 Intake: IV 160 3290 450 D5-1/2Ns - 1,000 ml @ 100 200 mls/hr IV ASDIR GERALD Rx#: [id number] Heparin - 25,000 Unit In 160 240 Normal Saline - 495 ml @ 1,000 UNIT/HR 20 mls/hr IV TITR GERALD Rx#: [id number] Heparin - 25,000 Unit In 50 Normal Saline - 495 ml @ 1,000 UNIT/HR 20 mls/hr IV TITR GERALD Rx#: [id number] Oral 700 0 Output: Urine 600 700 Void 600 Estimated Blood Loss 600 Other: Voiding Method Toilet Toilet Indwelling Catheter # Unmeasured Voids Void 1 Bowel Movement No GENERAL: awake, alert HEAD: NCAT EYES: Pupils equal, round and reactive to light, extraocular movements intact, sclerae anicteric, conjunctivae clear. EARS, NOSE, THROAT: Ears normal, nares patent, oropharynx clear without exudates. Moist mucous membranes. NECK: Normal range of motion, supple without lymphadenopathy, JVD, or masses. LUNGS: Breath sounds equal, clear to auscultation bilaterally. No wheezes, and no crackles. No accessory muscle use. HEART: Regular rhythm, tachycardic, normal S1 and S2 without murmur, rub or gallop. ABDOMEN: soft, NT, ND MUSCULOSKELETAL: WNL UPPER EXTREMITIES: 2+ pulses, warm, well-perfused. No cyanosis. No clubbing. No peripheral edema. LOWER EXTREMITIES: good DP/PT signals on R, L w/o either, cool to touch, minimal pain NEUROLOGICAL: Cranial nerves II-XII intact. non focal SKIN: Warm, dry, normal turgor, no rashes or lesions noted, normal capillary refill. Laboratory Results - last 24 hr 08/08/17 08/08/17 08/08/17 00:30 00:30 00:30 WBC 12.3 H RBC 4.98 Hgb 15.3 Hct 45.8 MCV 91.9 MCH 30.6 MCHC 33.3 RDW 14.7 Plt Count 317 MPV 7.0 L Neutrophils % 65.2 Lymphocytes % 22.8 Monocytes % 9.5 Eosinophils % 1.5 Basophils % 1.0 D-Dimer > 5000 H Sodium 146 H Potassium 4.4 Chloride 104 Carbon Dioxide 30 D Anion Gap 12 BUN 27 H Creatinine 1.1 Creat Clearance w eGFR > 60 Random Glucose 116 H Calcium 8.5 Total Bilirubin 0.3 D AST 17 ALT 20 Alkaline Phosphatase 78 Total Protein 7.2 Albumin 3.6 ASSESSMENT/PLAN: 57 year old man with a history of PAD, aortobifemoral bypass, angioplasty of left popliteal artery who presented w/ claudication, found to have aorto-fem and DP occlusion, taken to OR for congregation of circulation, c/b apparent reocclusion -repeat CTA with runoff -heparin gtt -inform Georgiana once imaging completed -serial exam of LE with doppler -pain control -keep npo as possible return to OR -intra-op abx as per surgery -observe in ICU T[place]res ACNP [id number]
[2017-08-09] MEDS ORDERED: CHLORHEXIDINE GLUCONATE 4% CLEANSER FOR DECOLONIZATION TP SCH ×2 (22:00)
[2017-08-09] MEDS ORDERED: MUPIROCIN 2% TOPICAL OINTMENT FOR DECOLONIZATION NS SCH ×2 (22:00)
[2017-08-09] MEDS ORDERED: VANCOMYCIN 1,000 MG in DEXTROSE 5%-WATER - 250 ML IVPB SCH (22:00)
--- NOTE | 2017-08-10 00:39 | OP ---
Operative Note - Note: Operative Date: 08/09/17 Pre-Operative Diagnosis: Thrombosis of right iliac artery bypass graft Operation: Right iliofemoral thrombectomy. Placement of bilateral iliac artery stents. Aortogram Findings: The right iliac limb of the aortobifemoral byapss had reoccluded post-op. There was adherent thrombus in the aortic graft and iliac limb. Implants: [employer] 7 x 37 mm stent x 2 Post-Operative Diagnosis: Same as Pre-op Surgeon: Carlos Stoner Pneumatic Deicer Inspector: Victor M Oconnor Anesthesiologist/ADVERTISING OPERATIONS COORDINATOR: Alec Mcdaniels Anesthesia: General Specimens Removed: Thrombus right iliac artery Estimated Blood Loss (mls): 100
[2017-08-10] MEDS ORDERED: HYDROmorphone HCL CARPU-JECT 4 MG/1 ML DISP.SYRIN IVPB PRN (00:41)
--- NOTE | 2017-08-10 00:44 | SURG ---
Surgery Fig Washer Note Fig Washer: Victor M Oconnor PA-C Date of Service: 08/10/17 Diagnosis: Thrombosis of right iliac artery bypass graft Procedure: Right iliofemoral thrombectomy. Placement of bilateral iliac artery stents. Aortogram I was present for the entirety of the operative procedure. For further detail, please refer to operative report. Visit type - Case Type Case Type: ED Admission - Emergency Emergency Visit: Yes ED Registration Date: 08/08/17 Care time: The patient presented to the Emergency Department on the above date and was hospitalized for further evaluation of their emergent condition. - New patient This patient is new to me today: Yes Date on this admission: 08/10/17
[2017-08-10] MEDS: DEXTROSE 5%-0.45% SALINE 1,000 ML IV SCH ×3 (05:05→14:49)
[2017-08-10] MEDS ORDERED: ACETAMINOPHEN 325 MG TABLET (FP) PO PRN (05:14)
[2017-08-10] MEDS ORDERED: HEPARIN NA (PORCINE) 5,000 UNITS/ML 1ML VIAL IVPUSH PRN ×4 (05:14)
[2017-08-10] MEDS ORDERED: ONDANSETRON 4 MG/2 ML VIAL IVPUSH PRN (05:14)
[2017-08-10] MEDS: HEPARIN - 25,000 UNIT in SODIUM CHLORIDE 495 ML IV SCH ×2 (06:44→14:50)
[2017-08-10] MEDS: oxyCODONE HCL 5 MG TABLET PO PRN (06:45)
[2017-08-10 06:57] LABS: ANION GAP 8 (8-16); BLOOD UREA NITROGEN 9 mg/dL (7-18); CALCIUM 8.6 mg/dL (8.5-10.1); CHLORIDE 100 mmol/L (98-107); CO2 30 mmol/L (21-32); CREATININE 0.8 mg/dL (0.7-1.3); GLUCOSE,RANDOM 168 mg/dL (74-106); POTASSIUM 4.2 mmol/L (3.5-5.1); SODIUM 138 mmol/L (136-145)
[2017-08-10 07:09] LABS: BASO % 0.1 % (0-2.0); HEMATOCRIT 36.7 % (35.4-49); HEMOGLOBIN 12.1 GM/dL (11.7-16.9); LYMPH % 9.3 % (8-40); MCH 30.4 pg (25.7-33.7); MCHC 32.9 g/dl (32.0-35.9); MEAN CELL VOLUME 92.3 fl (80-96); MEAN PLT VOLUME 7.2 fl (7.5-11.1); MONO % 6.6 % (3.8-10.2); PLATELET COUNT 283 K/MM3 (134-434); RBC 3.97 M/mm3 (4.00-5.60); RDW 14.5 % (11.9-15.9); WHITE BLOOD COUNT 14.5 K/mm3 (4.0-10.0)
--- NOTE | 2017-08-10 09:02 | PN ---
Progress Note (short form) - Note Progress Note: PULM/CCM POD#1: s/p B/L Ilio-Femoral endarterectomies w/ aorto-bifemoral bypass c/b required revision of R iliac limb for immediate post-op re-occlusion. Pt seen and examined in ICU. CA+OX3, denies any pain, OOB --> Chair, NAD. Both feet are warm w/ palpable pulses L > R. Active Medications Acetaminophen (Tylenol -) 650 mg PO Q4H PRN PRN Reason: PAIN Chlorhexidine Gluconate (Hibiclens For Decolonization -) 1 applic TP HS GERALD Fentanyl (Sublimaze Injection -) 25 mcg IVPUSH [id number] PRN PRN Reason: PAIN-PACU ORDER X 4 DOSES ONLY Heparin Sodium (Porcine) (Heparin -) 1,000 unit IVPUSH PRN PRN PRN Reason: Heparin Heparin Sodium (Porcine) (Heparin -) 5,000 unit IVPUSH PRN PRN PRN Reason: Heparin Hydromorphone HCl (Dilaudid Injection -) 1 mg IVPB Q3H PRN PRN Reason: PAIN LEVEL 1-5 Last Admin: 08/10/17 13:52 Dose: 1 mg Dextrose/Sodium Chloride (D5-1/2ns -) 1,000 mls @ 100 mls/hr IV ASDIR GERALD Last Admin: 08/10/17 06:44 Dose: Not Given Heparin Sodium (Porcine) 25, (000 unit/ Sodium Chloride) 500 mls @ 20 mls/hr IV TITR GERALD; 1,000 UNIT/HR PRN Reason: Protocol Last Titration: 08/10/17 06:56 Dose: 1,450 unit/hr, 29 mls/hr Mupirocin (Bactroban Ointment (For Decolonization) -) 1 applic NS BID GERALD Stop: 08/14/17 21:59 Last Admin: 08/10/17 10:01 Dose: 1 applic Ondansetron HCl (Zofran Injection) 4 mg IVPUSH Q6H PRN PRN Reason: NAUSEA Oxycodone HCl (Roxicodone -) 5 mg PO Q4H PRN PRN Reason: PAIN LEVEL 7 - 10 Last Admin: 08/10/17 06:45 Dose: 5 mg Pantoprazole Sodium (Protonix Iv) 40 mg IVPUSH DAILY [facility] Vital Signs Temp 98.7 F 08/10/17 09:58 Pulse 100 H 08/10/17 12:00 Resp 15 08/10/17 12:00 BP 140/72 08/10/17 12:00 Pulse Ox 95 08/10/17 09:00 Intake & Output 08/07/17 08/08/17 08/09/17 08/10/17 23:59 23:59 23:59 23:59 Intake Total 860 4540 1030 Output Total 2150 1600 Balance 860 2390 -570 Weight 81.647 kg 82.372 kg GEN: Middle aged man, CA+OX3, NAD HEENT: NCAT, PERRL, an-icteric PULM: CTAB CV: nml S1 S2, RR ABD: + BS S/S N/T N/D X4Q EXT: VSS Incisions clean and dry. Both feet warm. L DP: 2+, R DP: 1+. CBC, BMP 08/10/17 06:00 08/10/17 06:00 INR, PTT INR 1.10 (0.82-1.09) 08/08/17 05:03 RECENT STUDIES TO NOTE: CXR 08/08: Unremarkable contour of the cardiomediastinal silhouette. No evidence of pneumonia, atelectasis, CHF. No pleural effusion, or pneumothorax. No bulky hilar adenopathy is seen. Scoliosis of the thoracic spine. Intact visualized osseous structures. CT ABD CTA AOR & BLE RUNOFF 08/08: The distal thoracic aorta is normal caliber and widely patent. The suprarenal abdominal aorta is normal caliber demonstrating mild mural atherosclerotic disease with minimal luminal stenosis. The patient is status post aorto bifemoral bypass. The [place] abdominal aorta, right and left common iliac, external iliac and left common femoral arteries are occluded. The aortobifem bypass is completely occluded. There is no constitutional flow in the left superficial and deep femoral arteries and reconstitution of flow in the distal right common femoral artery. The right deep femoral artery is widely patent. Atherosclerotic disease resulting in less than 50% stenosis seen in the right distal superficial femoral artery at the region of the abductor canal. The right popliteal artery and infrapopliteal arteries are patent. The plantar branches of the foot are patent. The dorsalis pedis artery is occluded at the level of the hindfoot just distal to the ankle. Atherosclerotic plaque seen in the left superficial femoral artery in the abductor canal resulting in less than 50% stenosis. The left popliteal artery just above the knee joint is occluded. The left tibioperoneal trunk and the origins of the 3 infrapopliteal arteries are occluded. There is reconstitution of flow of the infrapopliteal arteries via collateral flow followed by occlusion of the distal left peroneal and anterior tibial arteries. The left posterior tibial artery demonstrate diminutive flow to the plantar aspect of the foot. Atherosclerotic disease resulting in at least 50-70% seen at the origin of the celiac trunk and SMA with poststenotic dilatation. The origin of the CHIP is occluded. There is restriction of flow in the CHIP branches via collateral flow. ABDOMEN AND PELVIS : There is bilateral posterior dependent lung atelectasis. There is a 3 mm nodule in the right lower lobe (axial image 1). The liver, gallbladder, and biliary tree are unremarkable. There is heterogeneous enhancement of the spleen limiting its evaluation. The pancreatic head is slightly heterogeneous in enhancement with questionable 8 mm hypodensity in the head region (axial image 54). There is thickening of the adrenal glands, left more than right. There is symmetric enhancement of both kidneys. Kidneys are imaged in the cortical phase limiting the evaluation for medullary lesions. Nonobstructing stones left lower renal pole measuring 3 to 4 mm. There is no hydronephrosis. The urinary bladder is grossly unremarkable. The prostate gland is unremarkable. Evaluation of the bowel loops is limited due to lack of oral contrast however there is no evidence of abnormal bowel dilatation to suggest bowel obstruction. There is no evidence of pneumoperitoneum , abdominal ascites or enlarged lymph nodes. There is no gross destructive bony lesion. IMPRESSION: Occluded aortobifem bypass and occluded [place] aorta, bilateral OLIVIER, EIA and GLOVE BRUSHER's with reconstitution of flow in the deep and superficial femoral arteries. Occluded left popliteal artery with reconstitution of flow few centimeters distal to the origin of the infrapopliteal arteries followed by occlusion of the distal left peroneal and posterior tibial arteries with diminutive flow to the foot provided by the left posterior tibial artery. Abrupt occlusion of the right dorsalis pedis artery just distal to the ankle. Atherosclerotic disease resulting in less than 50% stenosis in the distal SFAs in the adductor canal. Atherosclerotic disease resulting in 50-70% stenosis in the proximal SMA and celiac trunk with poststenotic dilatation. 3 mm partially imaged right lower lobe lung nodule. Bilateral adrenal hyperplasia. Nonobstructing left lower renal pole stones. MIBI 11/2016: No ischemia, LVEF = 80 ASSESS: This is a 57 y/o man w/ PAD s/p remote aortobifemoral bypass 2010 and LE angioplasty 2011 who presents on 08/08 w/ recurrent LE stenosis/occlusion, taken to OR for sikhism of circulation, c/c/b required revision of the R iliac limb for immediate post-op re-occlusion. PLAN: -Monitor LEs a/p Vasc w/ doppler prn -Pain control -Cont Heparin drip & start Coumadin NOW -OOB -D/C pham -Smoking cessation -PPI (Heparin gtt) -Transfer to Med Surg -Vascular to Follow DGL, ACNP-BC [facility] ICU PULM/CCM [id number]
--- NOTE | 2017-08-10 09:56 | PN ---
Progress Note (short form) - Note Progress Note: Anesthesiology Post-op 57 y.o. male s/p Right iliofemoral thrombectomy,placement of bilateral iliac artery stents and aortogram under GA. Pt. is in ICU post-op. Pain is well-managed @07/26. No overnight issues per RN except for some c/o dyspepsia. VSS. No apparent anesthesia-related issues. Stable post-operative course. Continue ICU management as per primary team.
[2017-08-10] MEDS ORDERED: MUPIROCIN 2% TOPICAL OINTMENT FOR DECOLONIZATION NS SCH (10:00)
[2017-08-10] MEDS: MUPIROCIN 2% TOPICAL OINTMENT FOR DECOLONIZATION NS SCH ×2 (10:01→22:08)
--- NOTE | 2017-08-10 11:34 | PN ---
Progress Note (short form) - Note Progress Note: This is a 57 year old man with a history of PAD, aorto-bifemoral bypass, angioplasty of left popliteal artery who presented to the ED with worsening pain in his left leg x 5 days. He was found to have WBC 12.3, D-dimer >5000, Na 146. Venous doppler was negative for DVT. CTA showed occlusion of bypass graft, left popliteal and proximal tibials. patient was taken to the OR yesterday for the occlusion he stated he is doing well without any complaints. 1. PAD with occlusion of aorto-bifemoral bypass graft and left popliteal artery - s/p bilateral ilio-femoral endarterectomies, patch angioplasty both femoral arteries, angioplasty aorta today - Continue heparin IV drip - Smoking cessation - pain is well he does not require extra doses, stating that he needs pain meds when the pain is 7/10 2. Leukocytosis - Likely secondary to leg ischemia - resolving 3. Hypernatremia, mild - Resolved 4. Nicotine dependence - Discussed smoking cessation Visit type - Emergency Visit Emergency Visit: No - New Patient This patient is new to me today: Yes Date on this admission: 08/10/17 - Critical Care Critical Care patient: No - Discharge Referral Referred to [facility] Med P.C.: No
--- NOTE | 2017-08-10 11:35 | PN ---
Progress Note, Physician History of Present Illness: No complaints No leg pain Taken back to OR as the right iliac limb of the aortobifemoral byapss had reoccluded post-op. There was adherent thrombus in the aortic graft and iliac limb. - Current Medication List Current Medications: Active Medications Acetaminophen (Tylenol -) 650 mg PO Q4H PRN PRN Reason: PAIN Chlorhexidine Gluconate (Hibiclens For Decolonization -) 1 applic TP HS GERALD Fentanyl (Sublimaze Injection -) 25 mcg IVPUSH [id number] PRN PRN Reason: PAIN-PACU ORDER X 4 DOSES ONLY Heparin Sodium (Porcine) (Heparin -) 1,000 unit IVPUSH PRN PRN PRN Reason: Heparin Heparin Sodium (Porcine) (Heparin -) 5,000 unit IVPUSH PRN PRN PRN Reason: Heparin Hydromorphone HCl (Dilaudid Injection -) 1 mg IVPB Q3H PRN PRN Reason: PAIN LEVEL 1-5 Dextrose/Sodium Chloride (D5-1/2ns -) 1,000 mls @ 100 mls/hr IV ASDIR GERALD Last Admin: 08/10/17 06:44 Dose: Not Given Heparin Sodium (Porcine) 25, (000 unit/ Sodium Chloride) 500 mls @ 20 mls/hr IV TITR GERALD; 1,000 UNIT/HR PRN Reason: Protocol Last Titration: 08/10/17 06:56 Dose: 1,450 unit/hr, 29 mls/hr Mupirocin (Bactroban Ointment (For Decolonization) -) 1 applic NS BID [facility] Stop: 08/14/17 21:59 Last Admin: 08/10/17 10:01 Dose: 1 applic Ondansetron HCl (Zofran Injection) 4 mg IVPUSH Q6H PRN PRN Reason: NAUSEA Oxycodone HCl (Roxicodone -) 5 mg PO Q4H PRN PRN Reason: PAIN LEVEL 7 - 10 Last Admin: 08/10/17 06:45 Dose: 5 mg - Objective Vital Signs: Vital Signs Temperature 98.7 F 08/10/17 09:58 Pulse Rate 102 H 08/10/17 09:58 Respiratory Rate 16 08/10/17 09:58 Blood Pressure 132/73 08/10/17 09:58 O2 Sat by Pulse Oximetry (%) 95 08/10/17 09:00 Constitutional: Yes: No Distress, Calm Eyes: Yes: WNL HENT: Yes: WNL Neck: Yes: WNL Cardiovascular: Yes: Regular Rate and Rhythm Respiratory: Yes: CTA Bilaterally Gastrointestinal: Yes: Normal Bowel Sounds Musculoskeletal: Yes: WNL Edema: No Peripheral Pulses: Left Doralis Pedis: 2+, Right Dorsalis Pedis: 1+ Labs: CBC, BMP 08/10/17 06:00 08/10/17 06:00 INR, PTT INR 1.10 (0.82-1.09) 08/08/17 05:03 Assessment/Plan mibi 11/2016: no ischemia, lvef 80 a/p: 57 m hx htn, pad s/p remote aortobifemoral bypass 2010 and le angioplasty 2011 here with b/l leg pain. pad: -here with recurrence of le stenosis/occlusion - Now s/p stent as per vascular team -cont hep gtt -No active post op cardiac issues htn: -not on meds at home, monitor here tob use: -smoking cessation
[2017-08-10] MEDS ORDERED: MAG HYDROX/AL HYDROX/SIMETH 30 ML UNIT-DOSE CUP PO ONE (11:42)
[2017-08-10] MEDS ORDERED: FAMOTIDINE IV 20 MG/12 ML VIAL IVPUSH ONE (12:00)
--- NOTE | 2017-08-10 13:06 | PN ---
Progress Note (short form) - Note Progress Note: POD 1 VSSIncisions clean and dry Both feet warm, doppler PT, right popliteal palpable Heparin drip to continue, start Coumadin OOB D/C pham Problem List - Problems (1) Thrombosis of aortic bifurcation bypass graft Code(s): T82.868A - THROMBOSIS DUE TO VASCULAR PROSTH DEV/GRFT, INIT Qualifiers: Encounter type: initial encounter Qualified Code(s): T82.868A - Thrombosis due to vascular prosthetic devices, implants and grafts, initial encounter
[2017-08-10] MEDS: HYDROmorphone HCL CARPU-JECT 4 MG/1 ML DISP.SYRIN IVPB PRN ×2 (13:52→18:44)
[2017-08-10] MEDS ORDERED: PT OWN MED DRAWER 7, Y5N ONE (17:18)
[2017-08-10] MEDS ORDERED: FAMOTIDINE 20 MG/50 ML IVPB 20 MG/50 ML MG IVPB ONE ×2 (17:30→17:31)
[2017-08-10] MEDS ORDERED: WARFARIN NA 10 MG TABLET (FP) PO SCH (18:00)
[2017-08-10] MEDS ORDERED: CHLORHEXIDINE GLUCONATE 4% CLEANSER FOR DECOLONIZATION TP SCH ×2 (22:00)
[2017-08-11] MEDS: HYDROmorphone HCL CARPU-JECT 4 MG/1 ML DISP.SYRIN IVPB PRN ×2 (00:56→06:24)
[2017-08-11 05:44] LABS: BASO % 0.6 % (0-2.0); EOS % 0.5 % (0-4.5); HEMATOCRIT 32.5 % (35.4-49); HEMOGLOBIN 10.6 GM/dL (11.7-16.9); LYMPH % 24.3 % (8-40); MCH 30.4 pg (25.7-33.7); MCHC 32.6 g/dl (32.0-35.9); MEAN CELL VOLUME 93.2 fl (80-96); MEAN PLT VOLUME 7.1 fl (7.5-11.1); MONO % 9.5 % (3.8-10.2); NEUT % 65.1 % (42.8-82.8); PLATELET COUNT 253 K/MM3 (134-434); RBC 3.49 M/mm3 (4.00-5.60); RDW 14.5 % (11.9-15.9); WHITE BLOOD COUNT 11.9 K/mm3 (4.0-10.0)
[2017-08-11 06:04] LABS: INR 1.26 (0.82-1.09); PROTHROMBIN TIME (PATIENT) 14.2 SEC (9.98-11.88)
[2017-08-11 06:26] LABS: ALBUMIN 2.6 g/dl (3.4-5.0); ANION GAP 4 (8-16); BILIRUBIN,TOTAL 0.3 mg/dL (0.2-1.0); BLOOD UREA NITROGEN 14 mg/dL (7-18); CALCIUM 8.1 mg/dL (8.5-10.1); CHLORIDE 102 mmol/L (98-107); CO2 31 mmol/L (21-32); GLUCOSE,RANDOM 101 mg/dL (74-106); POTASSIUM 3.8 mmol/L (3.5-5.1); SGOT/AST 127 U/L (15-37); SGPT/ALT 131 U/L (12-78); SODIUM 137 mmol/L (136-145); TOT PROT 5.6 g/dl (6.4-8.2)
[2017-08-11 06:27] LABS: ALK PHOS 110 U/L (45-117)
[2017-08-11] MEDS: HEPARIN - 25,000 UNIT in SODIUM CHLORIDE 495 ML IV SCH (06:27)
--- NOTE | 2017-08-11 08:18 | PN ---
Progress Note, Physician History of Present Illness: This is a 57 YOM with h/o PAD s/p remote aortobifemoral bypass 2010 and LE angioplasty 2011 who presented on 08/08/17 with LLE pain/numbness, found with LE stenosis/occlusion, taken to OR for yarsanism of circulation (EBL 600cc), c/b almost-immediate re-occlusion requiring revision of the R iliac limb, now s/p stent (EBL 100cc). 24 HOUR EVENTS Came to ICU, pulses found by Doppler, no significant events. SUBJECTIVE Patient notes pain at surgical sites but no other complaints. 24 HOUR INTAKE & OUTPUT Intake: 2978cc Output: 1600cc Net: 1378cc BM: None reported - Current Medication List Current Medications: Active Medications Acetaminophen (Tylenol -) 650 mg PO Q4H PRN PRN Reason: PAIN Chlorhexidine Gluconate (Hibiclens For Decolonization -) 1 applic TP HS [facility] Last Admin: 08/10/17 22:08 Dose: 1 applic Fentanyl (Sublimaze Injection -) 25 mcg IVPUSH [id number] PRN PRN Reason: PAIN-PACU ORDER X 4 DOSES ONLY Heparin Sodium (Porcine) (Heparin -) 1,000 unit IVPUSH PRN PRN PRN Reason: Heparin Heparin Sodium (Porcine) (Heparin -) 5,000 unit IVPUSH PRN PRN PRN Reason: Heparin Hydromorphone HCl (Dilaudid Injection -) 1 mg IVPB Q3H PRN PRN Reason: PAIN LEVEL 1-5 Last Admin: 08/11/17 06:24 Dose: 1 mg Heparin Sodium (Porcine) 25, (000 unit/ Sodium Chloride) 500 mls @ 20 mls/hr IV TITR [facility]D; 1,000 UNIT/HR PRN Reason: Protocol Last Admin: 08/11/17 06:27 Dose: Not Given Mupirocin (Bactroban Ointment (For Decolonization) -) 1 applic NS BID [facility] Stop: 08/14/17 21:59 Last Admin: 08/10/17 22:08 Dose: 1 applic Ondansetron HCl (Zofran Injection) 4 mg IVPUSH Q6H PRN PRN Reason: NAUSEA Oxycodone HCl (Roxicodone -) 5 mg PO Q4H PRN PRN Reason: PAIN LEVEL 7 - 10 Last Admin: 08/10/17 06:45 Dose: 5 mg Pantoprazole Sodium (Protonix Iv) 40 mg IVPUSH DAILY [facility] Warfarin Sodium (Coumadin -) 10 mg PO DAILY@1800 [facility] Last Admin: 08/10/17 18:30 Dose: 10 mg - Objective Vital Signs: Vital Signs Temperature 98.1 F 08/11/17 06:00 Pulse Rate 76 08/11/17 06:00 Respiratory Rate 16 08/11/17 06:00 Blood Pressure 135/75 08/11/17 06:00 O2 Sat by Pulse Oximetry (%) 100 08/10/17 20:50 Constitutional: Yes: Well Nourished, No Distress, Calm, Other (well appearing and answering questions appropriately) Eyes: Yes: WNL, Conjunctiva Clear, EOM Intact HENT: Yes: WNL, Atraumatic, Normocephalic Neck: Yes: WNL, Supple, Trachea Midline Cardiovascular: Yes: WNL, Regular Rate and Rhythm. No: Murmur Respiratory: Yes: WNL, Regular, CTA Bilaterally Gastrointestinal: Yes: WNL, Normal Bowel Sounds, Soft Musculoskeletal: Yes: Back Pain (states from being in hospital bed) Extremities: No: Calf Tenderness, Cold, Cool, Cyanosis, Deformity, Delayed Capillary Refill, Erythema, Pallor Edema: No Peripheral Pulses: Left Doralis Pedis: 0 (found by Doppler proximally), Right Dorsalis Pedis: 2+ Integumentary: Yes: WNL. No: Bruising, Erythema Wound/Incision: Yes: Clean/Dry, Well Approximated, Dressing Dry and Intact Neurological: Yes: WNL, Alert, Oriented ...Motor Strength: WNL Psychiatric: Yes: WNL, Alert, Oriented Labs: CBC, BMP 08/11/17 05:00 08/11/17 05:00 INR, PTT INR 1.26 (0.82-1.09) H 08/11/17 05:00 Assessment/Plan This is a 57 YOM with h/o PAD s/p remote aortobifemoral bypass 2010 and LE angioplasty 2011 who presents on 08/08 d/t recurrent LE stenosis/occlusion, taken to OR for yarsanism of circulation, c/b immediate re-occlusion requiring revision of the R iliac limb. CV #PAD with occlusion of aorto-bifemoral bypass graft and left popliteal artery. S /P bilateral ilio-femoral endarterectomies, patch angioplasty both femoral arteries, angioplasty aorta. -Monitor LEs a/p Vasc w/ doppler q2h -Smoking cessation -Pain is well he does not require extra doses, stating that he needs pain meds when the pain is 7/10 -Vascular following -OOB per vascular -PT (order placed already) -D/C Raymundo ID #Leukocytosis, improving. Likely secondary to leg ischemia. -Continue to monitor CBCD FEN #Hypernatremia, mild, resolved. -Continue to monitor CMP, lytes -Replete K, Mg, Phos prn PPX -DVT: HSQ, start coumadin -GI: Protonix -PT: Order placed DISPO Can transfer to Med/Surg
--- NOTE | 2017-08-11 08:21 | PN ---
Progress Note (short form) - Note Progress Note: POD 2 Pain getting better VSS Incisions clean and dry Both feet warm, doppler PT and DP both legs Continue Heparin, adjust Coumadin to INR ~2 Transfer floor, Physical therapy Problem List - Problems (1) Thrombosis of aortic bifurcation bypass graft Code(s): T82.868A - THROMBOSIS DUE TO VASCULAR PROSTH DEV/GRFT, INIT Qualifiers: Qualified Code(s): T82.868A - Thrombosis due to vascular prosthetic devices, implants and grafts, initial encounter
--- NOTE | 2017-08-11 09:39 | PN ---
Progress Note, Physician - Current Medication List Current Medications: Active Medications Acetaminophen (Tylenol -) 650 mg PO Q4H PRN PRN Reason: PAIN Chlorhexidine Gluconate (Hibiclens For Decolonization -) 1 applic TP HS [facility] Last Admin: 08/10/17 22:08 Dose: 1 applic Fentanyl (Sublimaze Injection -) 25 mcg IVPUSH [id number] PRN PRN Reason: PAIN-PACU ORDER X 4 DOSES ONLY Heparin Sodium (Porcine) (Heparin -) 1,000 unit IVPUSH PRN PRN PRN Reason: Heparin Heparin Sodium (Porcine) (Heparin -) 5,000 unit IVPUSH PRN PRN PRN Reason: Heparin Heparin Sodium (Porcine) 25, (000 unit/ Sodium Chloride) 500 mls @ 20 mls/hr IV TITR GERALD; 1,000 UNIT/HR PRN Reason: Protocol Last Admin: 08/11/17 06:27 Dose: Not Given Mupirocin (Bactroban Ointment (For Decolonization) -) 1 applic NS BID [facility] Stop: 08/14/17 21:59 Last Admin: 08/10/17 22:08 Dose: 1 applic Ondansetron HCl (Zofran Injection) 4 mg IVPUSH Q6H PRN PRN Reason: NAUSEA Oxycodone HCl (Roxicodone -) 5 mg PO Q4H PRN PRN Reason: PAIN LEVEL 7 - 10 Last Admin: 08/10/17 06:45 Dose: 5 mg Pantoprazole Sodium (Protonix Iv) 40 mg IVPUSH DAILY [facility] Warfarin Sodium (Coumadin -) 10 mg PO DAILY@1800 [facility] Last Admin: 08/10/17 18:30 Dose: 10 mg - Objective Vital Signs: Vital Signs Temperature 98.1 F 08/11/17 06:00 Pulse Rate 104 H 08/11/17 08:37 Respiratory Rate 20 08/11/17 08:37 Blood Pressure 135/76 08/11/17 08:37 O2 Sat by Pulse Oximetry (%) 100 08/10/17 20:50 Cardiovascular: Yes: Regular Rate and Rhythm Respiratory: Yes: Regular, CTA Bilaterally Gastrointestinal: Yes: Normal Bowel Sounds, Soft Extremities: Yes: Other (warm) Edema: No Labs: CBC, BMP 08/11/17 05:00 08/11/17 05:00 INR, PTT INR 1.26 (0.82-1.09) H 08/11/17 05:00 Problem List - Problems (1) Arterial occlusion Assessment/Plan: PAD with occlusion of aorto-bifemoral bypass graft and left popliteal artery. S/ P bilateral ilio-femoral endarterectomies, patch angioplasty both femoral arteries, angioplasty aorta. -Monitor LEs a/p Vasc w/ doppler prn -Smoking cessation -Pain is well he does not require extra doses, stating that he needs pain meds when the pain is 7/10 -Vascular following -OOB per vascular -D/C Raymundo Code(s): I70.90 - UNSPECIFIED ATHEROSCLEROSIS (2) Thrombosis of aortic bifurcation bypass graft Code(s): T82.868A - THROMBOSIS DUE TO VASCULAR PROSTH DEV/GRFT, INIT Qualifiers: Encounter type: initial encounter Qualified Code(s): T82.868A - Thrombosis due to vascular prosthetic devices, implants and grafts, initial encounter
--- NOTE | 2017-08-11 09:43 | PN ---
Progress Note, Physician Chief Complaint: leg pain History of Present Illness: legs better, tender to touch no cp, sob, palpitations - Current Medication List Current Medications: Active Medications Acetaminophen (Tylenol -) 650 mg PO Q4H PRN PRN Reason: PAIN Chlorhexidine Gluconate (Hibiclens For Decolonization -) 1 applic TP HS [facility] Last Admin: 08/10/17 22:08 Dose: 1 applic Fentanyl (Sublimaze Injection -) 25 mcg IVPUSH [id number] PRN PRN Reason: PAIN-PACU ORDER X 4 DOSES ONLY Heparin Sodium (Porcine) (Heparin -) 1,000 unit IVPUSH PRN PRN PRN Reason: Heparin Heparin Sodium (Porcine) (Heparin -) 5,000 unit IVPUSH PRN PRN PRN Reason: Heparin Heparin Sodium (Porcine) 25, (000 unit/ Sodium Chloride) 500 mls @ 20 mls/hr IV TITR GERALD; 1,000 UNIT/HR PRN Reason: Protocol Last Admin: 08/11/17 06:27 Dose: Not Given Mupirocin (Bactroban Ointment (For Decolonization) -) 1 applic NS BID [facility] Stop: 08/14/17 21:59 Last Admin: 08/10/17 22:08 Dose: 1 applic Ondansetron HCl (Zofran Injection) 4 mg IVPUSH Q6H PRN PRN Reason: NAUSEA Oxycodone HCl (Roxicodone -) 5 mg PO Q4H PRN PRN Reason: PAIN LEVEL 7 - 10 Last Admin: 08/10/17 06:45 Dose: 5 mg Pantoprazole Sodium (Protonix Iv) 40 mg IVPUSH DAILY [facility] Warfarin Sodium (Coumadin -) 10 mg PO DAILY@1800 [facility] Last Admin: 08/10/17 18:30 Dose: 10 mg - Objective Vital Signs: Vital Signs Temperature 98.1 F 08/11/17 06:00 Pulse Rate 104 H 08/11/17 08:37 Respiratory Rate 20 08/11/17 08:37 Blood Pressure 135/76 08/11/17 08:37 O2 Sat by Pulse Oximetry (%) 100 08/10/17 20:50 Constitutional: Yes: Well Nourished, No Distress, Calm Cardiovascular: Yes: Regular Rate and Rhythm, S1, S2. No: Gallop, Murmur Respiratory: Yes: Regular, CTA Bilaterally. No: Accessory Muscle Use, Rales, Wheezes Extremities: No: Cold Edema: No Neurological: Yes: Alert. No: Seizure Labs: CBC, BMP 08/11/17 05:00 08/11/17 05:00 INR, PTT INR 1.26 (0.82-1.09) H 08/11/17 05:00 - ....Imaging EKG: Other (te;e" MSR) Assessment/Plan cxr: clear lungs ecg: sr, nl intervals, no ischemic changes mibi 11/2016: no ischemia, lvef 79 a/p: 57 m hx htn, pad s/p remote aortobifemoral bypass 2010 and le angioplasty 2011 here with b/l leg pain. pad: -here with thrombosed aortobifemoral bypass, s/p revasc (bilateral ilio-femoral endarterectomies, patch angioplasty both femoral arteries, agioplasty of aorta) -acute reocclusion of right iliac limb of the aortobifemoral bypass post-op--s/ p stent -cont hep gtt, mgmt plan per vascular -should have routine sec prevention CV med regimen (asa vs plavix, statin, +/- AYANA if bp room) -at present, defer ASA (started on warfarin per vascular), defer statin (AST/LT newly elevated today), defer AYANA (bp 100s at times)--readdress as outpt tob use: -smoking cessation
[2017-08-11] MEDS: MUPIROCIN 2% TOPICAL OINTMENT FOR DECOLONIZATION NS SCH (09:46)
[2017-08-11] MEDS: oxyCODONE HCL 5 MG TABLET PO PRN ×4 (09:49→22:58)
[2017-08-11] MEDS ORDERED: PANTOPRAZOLE SODIUM 40 MG VIAL IVPUSH SCH (10:00)
--- NOTE | 2017-08-11 12:08 | PN ---
Teaching Attending Note Name of Resident: Tessy Lynch ATTENDING PHYSICIAN STATEMENT I saw and evaluated the patient. I reviewed the resident's note and discussed the case with the resident. I agree with the resident's findings and plan as documented. SUBJECTIVE: Pt seen and examined in the ICU. Denies leg/foot pain, some discomfort at surgical sites and back pain from positioning. No shortness of breath or chest pain. OBJECTIVE: Last Vital Signs Temp Pulse Resp BP Pulse Ox 98.1 F 104 H 20 135/76 100 08/11/17 06:00 08/11/17 08:37 08/11/17 08:37 08/11/17 08:37 08/10/17 20:50 Intake & Output 08/08/17 08/09/17 08/10/17 08/11/17 23:59 23:59 23:59 23:59 Intake Total 860 4540 2978 403 Output Total 2150 1600 700 Balance 860 2390 1378 -297 Weight 82.372 kg 79.515 kg Gen: NAD at rest Heart: tachycardic, regular Lung: decreased breath sounds at the bases Abd: soft, nontender Ext: warm, perfused, +DP CBC, BMP 08/11/17 05:00 08/11/17 05:00 Active Medications Acetaminophen (Tylenol -) 650 mg PO Q4H PRN PRN Reason: PAIN Chlorhexidine Gluconate (Hibiclens For Decolonization -) 1 applic TP HS [facility] Last Admin: 08/10/17 22:08 Dose: 1 applic Fentanyl (Sublimaze Injection -) 25 mcg IVPUSH [id number] PRN PRN Reason: PAIN-PACU ORDER X 4 DOSES ONLY Heparin Sodium (Porcine) (Heparin -) 1,000 unit IVPUSH PRN PRN PRN Reason: Heparin Heparin Sodium (Porcine) (Heparin -) 5,000 unit IVPUSH PRN PRN PRN Reason: Heparin Heparin Sodium (Porcine) 25, (000 unit/ Sodium Chloride) 500 mls @ 20 mls/hr IV TITR [facility]; 1,000 UNIT/HR PRN Reason: Protocol Last Admin: 08/11/17 06:27 Dose: Not Given Mupirocin (Bactroban Ointment (For Decolonization) -) 1 applic NS BID [facility] Stop: 08/14/17 21:59 Last Admin: 08/11/17 09:46 Dose: 1 applic Ondansetron HCl (Zofran Injection) 4 mg IVPUSH Q6H PRN PRN Reason: NAUSEA Oxycodone HCl (Roxicodone -) 5 mg PO Q4H PRN PRN Reason: PAIN LEVEL 7 - 10 Last Admin: 08/11/17 09:49 Dose: 5 mg Pantoprazole Sodium (Protonix Iv) 40 mg IVPUSH DAILY [facility] Last Admin: 08/11/17 09:46 Dose: 40 mg Warfarin Sodium (Coumadin -) 10 mg PO DAILY@1800 [facility] Last Admin: 08/10/17 18:30 Dose: 10 mg ASSESSMENT AND PLAN: PAD s/p Bilateral Ilio-Femoral Endarterectomies/Patch Angioplasty s/p post op Occlusion now s/p R Iliofemoral Thrombectomy/Bilateral Iliac Stents Smoker - pulse checks - pain control - continue anticoagulation - rehab/PT/OOB to chair - can monitor on floor
[2017-08-11] MEDS ORDERED: HEPARIN - 25,000 UNIT in SODIUM CHLORIDE 495 ML IV SCH (12:43)
[2017-08-11] MEDS ORDERED: ACETAMINOPHEN 325 MG TABLET (FP) PO PRN (12:43)
[2017-08-11] MEDS ORDERED: HEPARIN NA (PORCINE) 5,000 UNITS/ML 1ML VIAL IVPUSH PRN ×4 (12:43)
[2017-08-11] MEDS ORDERED: ONDANSETRON 4 MG/2 ML VIAL IVPUSH PRN (12:43)
[2017-08-11] MEDS ORDERED: WARFARIN NA 10 MG TABLET (FP) PO SCH (18:00)
[2017-08-11] MEDS ORDERED: CHLORHEXIDINE GLUCONATE 4% CLEANSER FOR DECOLONIZATION TP SCH (22:00)
[2017-08-11] MEDS ORDERED: ATORVASTATIN CA 40 MG TABLET (FP) PO SCH (22:00)
[2017-08-11] MEDS ORDERED: MUPIROCIN 2% TOPICAL OINTMENT FOR DECOLONIZATION NS SCH (22:00)
[2017-08-12 07:16] LABS: HEMATOCRIT 33.2 % (35.4-49); HEMOGLOBIN 10.9 GM/dL (11.7-16.9); MCH 30.5 pg (25.7-33.7); MCHC 32.9 g/dl (32.0-35.9); MEAN CELL VOLUME 92.7 fl (80-96); MEAN PLT VOLUME 6.8 fl (7.5-11.1); PLATELET COUNT 275 K/MM3 (134-434); RBC 3.58 M/mm3 (4.00-5.60); RDW 14.1 % (11.9-15.9)
[2017-08-12 07:19] LABS: INR 1.97 (0.82-1.09); PROTHROMBIN TIME (PATIENT) 22.3 SEC (9.98-11.88)
[2017-08-12] MEDS ORDERED: PANTOPRAZOLE SODIUM 40 MG VIAL IVPUSH SCH (10:00)
--- NOTE | 2017-08-12 11:30 | PN ---
Progress Note, Physician - Current Medication List Current Medications: Active Medications Acetaminophen (Tylenol -) 650 mg PO Q4H PRN PRN Reason: PAIN Ondansetron HCl (Zofran Injection) 4 mg IVPUSH Q6H PRN PRN Reason: NAUSEA Oxycodone HCl (Roxicodone -) 5 mg PO Q4H PRN PRN Reason: PAIN LEVEL 7 - 10 Last Admin: 08/11/17 22:58 Dose: 5 mg Pantoprazole Sodium (Protonix Iv) 40 mg IVPUSH DAILY [facility] Warfarin Sodium (Coumadin -) 5 mg PO DAILY@1800 [facility] - Objective Vital Signs: Vital Signs Temperature 98.1 F 08/12/17 06:00 Pulse Rate 92 H 08/12/17 06:00 Respiratory Rate 20 08/12/17 06:00 Blood Pressure 148/80 08/12/17 06:00 O2 Sat by Pulse Oximetry (%) 94 L 08/11/17 21:00 Constitutional: Yes: Calm Neck: Yes: Trachea Midline Cardiovascular: Yes: Regular Rate and Rhythm, S1, S2 Respiratory: Yes: CTA Bilaterally Gastrointestinal: Yes: Normal Bowel Sounds, Soft Neurological: Yes: Alert, Oriented Labs: CBC, BMP 08/12/17 06:40 08/11/17 05:00 INR, PTT INR 1.97 (0.82-1.09) H D 08/12/17 06:40 Problem List - Problems (1) Arterial occlusion Assessment/Plan: on coumadin PT evaluation Operative Date: 08/09/17 Pre-Operative Diagnosis: Thrombosis of right iliac artery bypass graft Operation: Right iliofemoral thrombectomy. Placement of bilateral iliac artery stents. Aortogram Findings: The right iliac limb of the aortobifemoral byapss had reoccluded post-op. There was adherent thrombus in the aortic graft and iliac limb. Implants: [employer] 7 x 37 mm stent x 2 Post-Operative Diagnosis: Same as Pre-op Surgeon: Carlos Stoner Facility Maintenance Technician: Victor M Oconnor Anesthesiologist/PER[employer]MAN[employer] SPECIALIST: Alec Mcdaniels Anesthesia: General Specimens Removed: Thrombus right iliac artery Estimated Blood Loss (mls): 100 PT evaluation OOB to chair pain control Code(s): I70.90 - UNSPECIFIED ATHEROSCLEROSIS (2) Elevated LFTs Assessment/Plan: monitor ultrasound of liver ggtp will hold off on statin- given LDL is elevated but has elevated LFT Code(s): R79.89 - OTHER SPECIFIED ABNORMAL FINDINGS OF BLOOD CHEMISTRY
--- NOTE | 2017-08-12 13:16 | PATH ---
Surgical Pathology Report Patient Name: ABIGAIL PERLA Med. Rec. #: [id number] /Age/Gender: 1960 (Age: 57) / M Account: [id number] Location: [address] [place] [address] Taken: 08/09/2017 Received: 08/11/2017 Reported: 08/12/2017 Physicians: José Briggs M.D. Specimen(s) Received A: RIGHT THROMBUS B: LEF THROMBUS Clinical History Occlusion of artery, bilateral leg ischemia Final Diagnosis A. THROMBUS, RIGHT, OPEN THROMBECTOMY: BLOOD CLOT/THROMBUS. B. THROMBUS, RIGHT, OPEN THROMBECTOMY: BLOOD CLOT/THROMBUS. Electronically Signed Karishma Arias M.D. Gross Description A. Received in formalin labeled "right thrombus," is a 2.0 x 1.5 x 0.3 cm aggregate of red-brown blood clot. The specimen is entirely submitted in one cassette. B. Received in formalin labeled "left thrombus," and a 1.4 x 1.1 x 0.3 cm aggregate of red-brown blood clot. The specimen is entirely submitted in one cassette. /08/11/2017 saudi08/11/2017
[2017-08-12] MEDS: oxyCODONE HCL 5 MG TABLET PO PRN ×2 (13:54→22:10)
[2017-08-12] MEDS: WARFARIN NA 5 MG TABLET (UD) PO SCH (17:59)
[2017-08-12] MEDS ORDERED: WARFARIN NA 5 MG TABLET (UD) PO SCH (18:00)
[2017-08-13] MEDS: oxyCODONE HCL 5 MG TABLET PO PRN ×3 (06:50→19:00)
[2017-08-13 08:33] LABS: HEMATOCRIT 35.3 % (35.4-49); HEMOGLOBIN 11.8 GM/dL (11.7-16.9); MCH 30.8 pg (25.7-33.7); MCHC 33.4 g/dl (32.0-35.9); MEAN CELL VOLUME 92.1 fl (80-96); MEAN PLT VOLUME 6.8 fl (7.5-11.1); PLATELET COUNT 339 K/MM3 (134-434); RBC 3.83 M/mm3 (4.00-5.60); RDW 14.1 % (11.9-15.9); WHITE BLOOD COUNT 10.9 K/mm3 (4.0-10.0)
[2017-08-13 08:46] LABS: INR 2.5 (0.82-1.09); PROTHROMBIN TIME (PATIENT) 28.3 SEC (9.98-11.88)
[2017-08-13 09:11] LABS: ALBUMIN 2.8 g/dl (3.4-5.0); ANION GAP 12 (8-16); BLOOD UREA NITROGEN 17 mg/dL (7-18); CALCIUM 9.3 mg/dL (8.5-10.1); CHLORIDE 99 mmol/L (98-107); CO2 26 mmol/L (21-32); CREATININE 0.9 mg/dL (0.7-1.3); GAMMA GLUTAMYL TRANSPEPTIDASE 119 U/L (5-85); GLUCOSE,RANDOM 143 mg/dL (74-106); POTASSIUM 4.1 mmol/L (3.5-5.1); SGOT/AST 42 U/L (15-37); SGPT/ALT 81 U/L (12-78); SODIUM 137 mmol/L (136-145)
[2017-08-13 09:13] LABS: ALK PHOS 123 U/L (45-117); BILIRUBIN,TOTAL 0.5 mg/dL (0.2-1.0); TOT PROT 6.8 g/dl (6.4-8.2)
[2017-08-13] MEDS ORDERED: DOCUSATE SODIUM 100 MG CAPSULE (FP) PO PRN (11:41)
--- NOTE | 2017-08-13 11:42 | PN ---
Progress Note, Physician Chief Complaint: Arterial occlusion History of Present Illness: NAD, in bed complains of right knee pain + pedal pulses Wound clean and intact, levy intact INR 2.5 - Current Medication List Current Medications: Active Medications Ondansetron HCl (Zofran Injection) 4 mg IVPUSH Q6H PRN PRN Reason: NAUSEA Oxycodone HCl (Roxicodone -) 5 mg PO Q4H PRN PRN Reason: PAIN LEVEL 7 - 10 Last Admin: 08/13/17 06:50 Dose: 5 mg Warfarin Sodium (Coumadin -) 5 mg PO DAILY@1800 [facility] Last Admin: 08/12/17 17:59 Dose: 5 mg - Objective Vital Signs: Vital Signs Temperature 98.4 F 08/13/17 10:21 Pulse Rate 94 H 08/13/17 10:21 Respiratory Rate 18 08/13/17 10:21 Blood Pressure 114/72 08/13/17 10:21 O2 Sat by Pulse Oximetry (%) 95 08/12/17 22:00 Constitutional: Yes: Well Nourished, No Distress, Calm Cardiovascular: Yes: Regular Rate and Rhythm Respiratory: Yes: Regular Gastrointestinal: Yes: Normal Bowel Sounds, Soft Musculoskeletal: Yes: WNL Extremities: Yes: WNL Edema: No Peripheral Pulses WNL: Yes Peripheral Pulses: Left Doralis Pedis: 1+, Right Dorsalis Pedis: 2+ Neurological: Yes: Alert, Oriented Psychiatric: Yes: Alert, Oriented Labs: CBC, BMP 08/13/17 07:45 08/13/17 07:45 INR, PTT INR 2.50 (0.82-1.09) H 08/13/17 07:45 Problem List - Problems (1) Arterial occlusion Assessment/Plan: +pedal pulses seen by Vascular on Warfarin, therapeutic with INR 2.5 Code(s): I70.90 - UNSPECIFIED ATHEROSCLEROSIS (2) Elevated LFTs Assessment/Plan: U/S reviewed hepatic steatosis repeat labs in AM GI OP Code(s): R79.89 - OTHER SPECIFIED ABNORMAL FINDINGS OF BLOOD CHEMISTRY (3) Thrombosis of aortic bifurcation bypass graft Code(s): T82.868A - THROMBOSIS DUE TO VASCULAR PROSTH DEV/GRFT, INIT Qualifiers: Encounter type: initial encounter Qualified Code(s): T82.868A - Thrombosis due to vascular prosthetic devices, implants and grafts, initial encounter Assessment/Plan see problem list
--- NOTE | 2017-08-13 12:18 | PN ---
Progress Note (short form) - Note Progress Note: VSS Wounds clean and dry Feet warm, palpable right DP pulse INR 2.5 on Coumadin 5 mg. Need to check again tomorrow. Stable May shower If INR stable in AM may discharge. Problem List - Problems (1) Thrombosis of aortic bifurcation bypass graft Code(s): T82.868A - THROMBOSIS DUE TO VASCULAR PROSTH DEV/GRFT, INIT Qualifiers: Encounter type: initial encounter Qualified Code(s): T82.868A - Thrombosis due to vascular prosthetic devices, implants and grafts, initial encounter
[2017-08-13] MEDS: WARFARIN NA 5 MG TABLET (UD) PO SCH (17:21)
[2017-08-14] MEDS: oxyCODONE HCL 5 MG TABLET PO PRN (03:12)
[2017-08-14 08:02] LABS: HEMATOCRIT 35.2 % (35.4-49); MCH 31.5 pg (25.7-33.7); MCHC 34.2 g/dl (32.0-35.9); MEAN CELL VOLUME 92.3 fl (80-96); MEAN PLT VOLUME 6.8 fl (7.5-11.1); PLATELET COUNT 370 K/MM3 (134-434); RBC 3.82 M/mm3 (4.00-5.60); RDW 14.2 % (11.9-15.9); WHITE BLOOD COUNT 9.7 K/mm3 (4.0-10.0)
--- NOTE | 2017-08-14 08:20 | PN ---
Progress Note (short form) - Note Progress Note: No new complaints. Feet warm Groin incisions dry INR pending USG: gallstones Imp: Stable overnight Plan: Check INR, adjust coumadin dose OK for discharge I will see in office in 2 weeks. Problem List - Problems (1) Thrombosis of aortic bifurcation bypass graft Code(s): T82.868A - THROMBOSIS DUE TO VASCULAR PROSTH DEV/GRFT, INIT Qualifiers: Encounter type: initial encounter Qualified Code(s): T82.868A - Thrombosis due to vascular prosthetic devices, implants and grafts, initial encounter
[2017-08-14 08:25] LABS: ALBUMIN 2.8 g/dl (3.4-5.0); ANION GAP 7 (8-16); BILIRUBIN,TOTAL 0.6 mg/dL (0.2-1.0); BLOOD UREA NITROGEN 24 mg/dL (7-18); CALCIUM 8.6 mg/dL (8.5-10.1); CHLORIDE 101 mmol/L (98-107); CO2 29 mmol/L (21-32); GLUCOSE,RANDOM 106 mg/dL (74-106); POTASSIUM 4.4 mmol/L (3.5-5.1); SGOT/AST 33 U/L (15-37); SGPT/ALT 73 U/L (12-78); SODIUM 137 mmol/L (136-145); TOT PROT 6.7 g/dl (6.4-8.2)
[2017-08-14 08:26] LABS: ALK PHOS 104 U/L (45-117); INR 2.35 (0.82-1.09); PROTHROMBIN TIME (PATIENT) 26.5 SEC (9.98-11.88)
[2017-08-14 08:43] VITALS: BP 111/51; PULSE 92; TEMP 98
--- NOTE | 2017-08-14 09:04 | OP ---
DATE OF OPERATION: 08/09/2017 SURGEON: Carlos Stoner MD HORN PLAYER: JUSTIN Dos Santos PROCEDURE: Bilateral iliofemoral endarterectomies with patch angioplasty of both femoral arteries. Angioplasty of aorta. Angiogram. PREOPERATIVE DIAGNOSIS: Thrombosed aortobifemoral bypass. POSTOPERATIVE DIAGNOSIS: Thrombosed aortobifemoral bypass. ANESTHESIA: General. ANESTHESIOLOGIST: Alec Mcdaniels MD OPERATIVE FINDINGS: The aortobifemoral bypass was thrombosed from the aortic anastomosis to the femoral anastomosis. There was a small amount of thrombus retrieved from the left superficial femoral artery. There was occlusion of the left deep femoral artery. Renal arteries were patent on angiography. OPERATIVE PROCEDURE: Following routine patient identification, general anesthesia was induced. The abdomen, both groins were prepped with ChloraPrep. Timeout was performed. Incision was made in the left groin through the old scar, extending proximally and distally for several centimeters. Subcutaneous tissues were divided with cautery. Dense scar tissue was carefully dissected. The superficial femoral artery was identified and was mobilized and secured with a Vesseloop. Proximal dissection allowed for identification of the end of the bypass graft which was then exposed proximally with division of the inguinal ligament which was overlying it. The graft was encircled proximally with a Vesseloop. The deep femoral artery was also carefully dissected and mobilized and secured with Vesseloop. Incision was then made in the right groin for a similar dissection. In this case the graft to femoral anastomosis had retracted superiorly well above the inguinal ligament. The ligament was divided and the retroperitoneal tissues elevated to bypass graft which was dissected free and encircled with the Vesseloop. Patient was systemically heparinized, and incision was then made in the right superficial femoral artery extending up onto the fonseca of the anastomosis. Thrombus within the vessel was removed. An angle-tipped Glidewire and Omniflush catheter were then advanced through the bypass graft into the aorta, and angiography was performed through the catheter to visualize the aorta proximal to the occlusion and document flow in the renal arteries. Thrombectomy of the iliac limb was then performed with No. 5 and No. Johnnie catheters, with retrieval of a large amount of thrombus. Arterial bleeding was returned, and the graft was filled with heparin and occluded. Incision was made in the left femoral artery in a similar fashion. In this case there was some thrombus within the common femoral and proximal superficial femoral arteries. Thrombectomy of the left iliac limb was then performed, with return of arterial bleeding after several passes. Additional thrombectomy was required from both sides as additional clot was retrieved and led to further occlusions in the vessels on the graft limbs. The incisions in the arteries were then closed with thin collagen-coated Dacron patches which were sewn in place with running sutures of 5-0 Prolene. Prior to completion of each suture line, the arteries were allowed to backbleed and flush. The left superficial femoral artery was thrombectomized with removal of a small amount of thrombus. There was good arterial backbleeding from both superficial femoral arteries and from the right deep femoral artery. The left deep femoral artery appeared to be occluded. After placing both patches and restoring flow, there was decreased pulse noted on the right side. A transverse arteriotomy was made in the superficial femoral artery distal to the patch, and further thrombectomy was performed with removal of additional thrombus and spiritism of strong pulsatile flow. The arteriotomy was closed with running suture of 6-0 Prolene. There was good Doppler flow in both superficial femoral arteries and in the deep femoral artery on the right. Wounds were irrigated with saline. The inguinal ligaments were repaired with interrupted [id number] sutures of 2-0 Vicryl. Subcutaneous tissues were approximated with interrupted sutures of 3-0 Vicryl, and the skin was closed with levy. Sterile dressings were applied, and the patient was transported to the recovery room in stable condition. CARLOS STONER M.D. [id number]
--- NOTE | 2017-08-14 09:25 | OP ---
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 Placement of bilateral iliac artery stents. PREOPERATIVE DIAGNOSIS: Reocclusion of the right iliac limb of the aortobifemoral bypass. POSTOPERATIVE DIAGNOSIS: Reocclusion of the right iliac limb of the aortobifemoral bypass. ANESTHESIA: General. ANESTHESIOLOGIST: Alec Mcdaniels MD OPERATIVE FINDINGS: There was thrombosis of the right iliac limb of the aortobifemoral bypass. Angiography revealed adherent thrombus within the proximal portion of the aortic bypass graft and a moderate stenosis at the origin of the left iliac limb. OPERATIVE PROCEDURE: Following routine patient identification with side and site verification, general anesthesia was induced. The abdomen, both groins were prepped with ChloraPrep. E[place] in the right groin were removed and the subcutaneous tissues divided and opened. The superficial femoral artery was mobilized and secured proximally and distally with Vesseloops. The sutures in the arteriotomy in the superficial femoral artery were removed and the vessel opened. There was no thrombus seen at this level. Passage of a No. 4 Johnnie catheter distally in the superficial femoral artery did not retrieve any thrombus, and there was arterial backbleeding. The vessel was filled with heparin solution and was occluded. In order to visualize the proximal aorta, a No. 5 sheath was placed into the left superficial femoral artery using duplex guidance and a Micropuncture technique. An Omniflush catheter was advanced over the wire into the proximal portion of the aortic bypass graft. Angiography was performed to confirm occlusion of the right iliac limb and identify small stenosis in the origin of the left iliac limb. Adherent thrombus along the right wall of the aortic bypass was also seen. Thrombectomy of the right iliac limb was then performed with No. 5 Johnnie catheters with return of strong arterial flow. Repeat imaging revealed the limb to be open, but the persistent thrombus was seen as noted above. Decision was made to exclude this portion of the bypass with placement of kissing covered iliac stents. Two LifeStream 7-mm x 37-mm stents were then advanced over wires into the aortic bypass graft and deployed above the point of thrombus visualization into each limb using kissing balloon technique. The stents were then postdilated with 9-mm balloons. Completion angiography revealed there to be good flow through both limbs with no residual stenoses. The right superficial femoral artery arteriotomy was then closed with running suture of 6-0 Prolene. Release of the vessels revealed good flow and strong Doppler signal and pulse in the SFA. The wound was irrigated with Bacitracin solution and closed in layers with 3-0 Vicryl and skin levy. The sheath in the left femoral artery was removed over a wire and the arteriotomy closed with a Perclose device. Sterile dressings were applied and the patient was taken to recovery room in stable condition. CARLOS LEUNG M.D. [id number]
--- NOTE | 2017-08-14 10:12 | DS ---
Physical Examination Vital Signs: Vital Signs Temperature 98.0 F 08/14/17 08:42 Pulse Rate 92 H 08/14/17 08:42 Respiratory Rate 20 08/14/17 08:42 Blood Pressure 111/51 08/14/17 08:42 O2 Sat by Pulse Oximetry (%) 95 08/14/17 09:20 Constitutional: Yes: Well Nourished, No Distress, Calm Cardiovascular: Yes: Regular Rate and Rhythm Respiratory: Yes: Regular Gastrointestinal: Yes: Normal Bowel Sounds, Soft Musculoskeletal: Yes: WNL Extremities: Yes: WNL Edema: No Peripheral Pulses WNL: Yes Neurological: Yes: Alert, Oriented Psychiatric: Yes: Alert, Oriented Labs: CBC, BMP 08/14/17 07:15 08/14/17 07:15 Discharge Summary Reason For Visit: OCCLUSION OF ARTERY Current Active Problems Arterial occlusion (Acute) Elevated LFTs (Acute) Thrombosis of aortic bifurcation bypass graft (Acute) Hospital Course: This is a 57 year old man who comes to the ED complaining of pain in his left calf. He reports that he first noted this pain while walking 5 days ago. It got worse as he continued to walk and improved with rest. It worsened over the next several days. He saw his PCP 2 days ago and says blood work and an US were done. Today the pain suddenly became worse where he could not bear weight on his left leg and it did not improve with rest, so he came to the ED. He says that both feet have been cold and numb for the last 5 days. His toes have been intermittently red and white. He says he has not been on any medication since the bypass surgery. He quit smoking cigarettes before the surgery but continues to smoke cigars. 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 Placement of bilateral iliac artery stents. Aortogram Findings: The right iliac limb of the aortobifemoral byapss had reoccluded post-op. There was adherent thrombus in the aortic graft and iliac limb. Implants: LifeStream 7 x 37 mm stent x 2 Condition: Stable - Instructions Diet, Activity, Other Instructions: -warfarin 5 mg 7 days/week -Follow up with PCp for INR check within 1 week -Follow up with Vascular Dr Stoner in 10 days Referrals: Griffin Thakkar MD [Staff Physician] - Lazaro Anand MD [Primary Care Provider] - Carlos Stoner MD [Staff Physician] - 2 Weeks Disposition: HOME - Home Medications Comprehensive Discharge Medication List: Ambulatory Orders Docusate Sodium [Colace -] 100 mg PO BID PRN #60 capsule 08/13/17 Warfarin Na [Coumadin -] 5 mg PO DAILY@1800 #30 tablet 08/13/17
== END 2017-08-14 14:34 | disposition home or self-care (01) | DRG 271 ==
LOC: JER 23:31 → JERBED 08-08 03:55 → J6S 08-08 06:42 → JICU 08-09 16:48 → J6S 08-11 12:42
PROVIDERS: ADMIT Internal Medicine; ATTEND Family Medicine
PROC: 04UL3JZ Supplement Left Femoral Artery with Synthetic Substitute, Percutaneous Approach (ICD-10-PCS; 2017-08-09)
PROC: 04UK3JZ Supplement Right Femoral Artery with Synthetic Substitute, Percutaneous Approach (ICD-10-PCS; 2017-08-09)
PROC: 04CK0ZZ Extirpation of Matter from Right Femoral Artery, Open Approach (ICD-10-PCS; 2017-08-09)
PROC: 047 Lower Arteries, Dilation (ICD-10-PCS; 2017-08-09)
PROC: 047C04Z Dilation of Right Common Iliac Artery with Drug-eluting Intraluminal Device, Open Approach (ICD-10-PCS; 2017-08-09)
PROC: B40DYZZ Plain Radiography of Aorta and Bilateral Lower Extremity Arteries using Other Contrast (ICD-10-PCS; 2017-08-09)
PROC: 04CL3ZZ Extirpation of Matter from Left Femoral Artery, Percutaneous Approach (ICD-10-PCS; principal; 2017-08-09 10:00)
PROC: 04CK3ZZ Extirpation of Matter from Right Femoral Artery, Percutaneous Approach (ICD-10-PCS; 2017-08-09 10:00)
DX: T82.868A Thrombosis due to vascular prosthetic devices, implants and grafts, initial encounter (principal); E87.0 Hyperosmolality and hypernatremia; I70.90 Unspecified atherosclerosis; I87.8 Other specified disorders of veins; D72.828 Other elevated white blood cell count; F17.200 Nicotine dependence, unspecified, uncomplicated; I10 Essential (primary) hypertension; Y83.8 Other surgical procedures as the cause of abnormal reaction of the patient, or of later complication, without mention of misadventure at the time of the procedure; Y92.89 Other specified places as the place of occurrence of the external cause; R79.89 Other specified abnormal findings of blood chemistry; Z88.0 Allergy status to penicillin
CPT/HCPCS: 36415; 71045-TC-FY; 75635-TC; 76000-TC-FY; 76705-TC; 80048; 80053; 80061; 82962; 82977; 83036; 83721; 85025; 85027; 85379; 85610; 85730; 86850; 86900; 86901; 86922; 88304-TC; 93005; 93010; 93970-TC; 94760; 97116-GP; 97161-GP; 99282-25; J1644

== ENCOUNTER 2017-10-30 11:58 | Emergency (ER) | payer BC ==
[2017-10-30 12:22] VITALS: TEMP 98.5; BMI 24.3
[2017-10-30 13:25] LABS: EOS % 1.2 % (0-4.5); HEMATOCRIT 48.4 % (35.4-49); HEMOGLOBIN 16.7 GM/dL (11.7-16.9); LYMPH % 29.1 % (8-40); MCH 31.8 pg (25.7-33.7); MCHC 34.5 g/dl (32.0-35.9); MEAN CELL VOLUME 92.3 fl (80-96); MONO % 9.2 % (3.8-10.2); NEUT % 59.5 % (42.8-82.8); PLATELET COUNT 279 K/MM3 (134-434); RBC 5.25 M/mm3 (4.00-5.60); RDW 15.3 % (11.9-15.9); WHITE BLOOD COUNT 9.8 K/mm3 (4.0-10.0)
[2017-10-30 13:43] LABS: INR 1.09 (0.82-1.09); PROTHROMBIN TIME (PATIENT) 12.3 SEC (9.7-13.0)
[2017-10-30 13:46] LABS: ACTIVATED PTT 36.9 SECONDS (26.9-34.4)
[2017-10-30 13:53] LABS: ANION GAP 8 (8-16); BILIRUBIN,TOTAL 0.4 mg/dL (0.2-1.0); BLOOD UREA NITROGEN 14 mg/dL (7-18); CALCIUM 9.4 mg/dL (8.5-10.1); CHLORIDE 104 mmol/L (98-107); CO2 28 mmol/L (21-32); GLUCOSE,RANDOM 93 mg/dL (74-106); POTASSIUM 4.5 mmol/L (3.5-5.1); SGOT/AST 20 U/L (15-37); SGPT/ALT 24 U/L (12-78); SODIUM 140 mmol/L (136-145); TOT PROT 7.9 g/dl (6.4-8.2)
[2017-10-30 13:54] LABS: ALK PHOS 84 U/L (45-117)
--- NOTE | 2017-10-30 14:11 | PDOC ---
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 Stoner for evaluation of bilateral lower extremities. The patient reports bilateral lower extremity pain with walking and at rest for several days. The patient reports bilateral calf pain with ambulation, right worse than left. He states his pain is also exacerbated when lying down for an extended period of time, and states he also develops numbness and tingling when lying down. He denies any chest pain, shortness of breath, diaphoresis, or palpitations. He denies any fever, chills, cough, headache, or dizziness. He denies any abdominal pain, nausea, or vomiting. He denies any recent travel or sick contacts. Patient reports he is on Eliquis and compliant. Patient was evaluated by Dr. Stoner earlier today, who sent pt to ED to r/o recurrent arterial occlusion. Allergies: Penicillins Past Surgical History: Thrombosed aortobifemoral bypass Social History: Current everyday smoker. No ETOH or recreational drug use. Vascular Surgeon: Dr. Stoner " Past History - Past Medical History Allergies/Adverse Reactions: Allergies Allergy/AdvReac Type Severity Reaction Status Date / Time Penicillins Allergy Verified 10/30/17 12:15 Home Medications: Ambulatory Orders Apixaban [Eliquis] 5 mg PO DAILY 10/30/17 Anemia: No Asthma: No Cancer: No Cardiac Disorders: No CVA: No COPD: No CHF: No Dementia: No Diabetes: No GI Disorders: No Disorders: No HTN: No Hypercholesterolemia: Yes Kidney Stones: Yes Liver Disease: No Seizures: No Thyroid Disease: No - Surgical History Abdominal Surgery: No Appendectomy: No Cardiac Surgery: No Cholecystectomy: No Lung Surgery: No Neurologic Surgery: No Orthopedic Surgery: No - Suicide/Smoking/Psychosocial Hx Smoking Status: Yes Smoking History: Former smoker Have you smoked in the past 12 months: Yes Number of Cigarettes Smoked Daily: 0 If you are a former smoker, when did you quit?: 4ths Cigars Per Day: 5 Information on smoking cessation initiated: No 'Breaking Loose' booklet given: 08/08/17 Hx Alcohol Use: No Drug/Substance Use Hx: No Substance Use Type: Alcohol Hx Substance Use Treatment: No Review of Systems - Review of Systems Comments:: 10/30/17 14:10 GENERAL/CONSTITUTIONAL: No fever or chills. No weakness. HEAD, EYES, EARS, NOSE AND THROAT: No change in vision. No ear pain or discharge. No sore throat. CARDIOVASCULAR: No chest pain or shortness of breath. RESPIRATORY: No cough, wheezing, or hemoptysis. GASTROINTESTINAL: No nausea, vomiting, diarrhea or constipation. GENITOURINARY: No dysuria, frequency, or change in urination. MUSCULOSKELETAL: +Bilateral lower extremity pain, numbness, and tingling, No joint or muscle swelling or pain. No neck or back pain. SKIN: No rash NEUROLOGIC: No headache, vertigo, loss of consciousness, or change in strength/ sensation. ENDOCRINE: No increased thirst. No abnormal weight change. HEMATOLOGIC/LYMPHATIC: +History of arterial occlusion bilateral LEs. No anemia, easy bleeding.. ALLERGIC/IMMUNOLOGIC: No hives or skin allergy." *Physical Exam - Vital Signs Last Vital Signs Temp Pulse Resp BP Pulse Ox 98.5 F 81 18 131/85 97 10/30/17 12:15 10/30/17 12:15 10/30/17 12:15 10/30/17 12:15 10/30/17 12:15 - Physical Exam Comments: 10/30/17 14:11 "GENERAL: Awake, alert, and fully oriented, in no acute distress. HEAD: No signs of trauma EYES: PERRLA, EOMI, sclera anicteric, conjunctiva clear ENT: Auricles normal inspection, hearing grossly normal, nares patent, oropharynx clear without exudates. Moist mucosa NECK: Nontender, no stepoffs, Normal ROM, supple, no lymphadenopathy, JVD, or masses LUNGS: Breath sounds equal, clear to auscultation bilaterally. No wheezes, and no crackles HEART: Regular rate and rhythm, normal S1 and S2, no murmurs, rubs or gallops ABDOMEN: Soft, nontender, normoactive bowel sounds. No guarding, no rebound. No masses EXTREMITIES: +RLE 1st digit with slight cyanosis, LLE all digits well perfused, Normal range of motion, no edema. NEUROLOGICAL: Cranial nerves II through XII intact. 5/5 strength and sensation in all extremities, Normal speech, normal gait, normal cerebellar function SKIN: Warm, Dry, normal turgor, no rashes or lesions noted. " ED Treatment Course - LABORATORY CBC & Chemistry Diagram: 10/30/17 13:10 10/30/17 13:10 - ADDITIONAL ORDERS Additional order review: Laboratory Results 10/30/17 10/30/17 13:10 13:10 PT with INR 12.30 INR 1.09 D PTT (Actin FS) 36.9 H Sodium 140 Potassium 4.5 Chloride 104 Carbon Dioxide 28 Anion Gap 8 BUN 14 D Creatinine 1.0 Creat Clearance w eGFR > 60 Random Glucose 93 Calcium 9.4 Total Bilirubin 0.4 D AST 20 D ALT 24 D Alkaline Phosphatase 84 Total Protein 7.9 Albumin 4.0 D 10/30/17 13:10 RBC 5.25 D MCV 92.3 MCHC 34.5 RDW 15.3 MPV 7.0 L Neutrophils % 59.5 Lymphocytes % 29.1 Monocytes % 9.2 Eosinophils % 1.2 D Basophils % 1.0 - RADIOLOGY Radiology Studies Ordered: Category Date Time Status ABDOMEN CTA AOR & BLE RUNOFF [CT] Stat CT Scan 10/30/17 12:52 Ordered Medical Decision Making - Medical Decision Making 10/30/17 14:29 57 M with h/o aorto-bifemoral bypass, presenting with claudication and blue discoloration to toe. Will need to r/o reocclusion of artery. - Labs - CTA with BLE runoff - Dr. Stoner following Pt signed out to oncoming attending at 5pm, pending CTA results and discussion with Dr. Stoner. *DC/Admit/Observation/Transfer Diagnosis at time of Disposition: Toe pain - Discharge Dispostion Disposition: HOME Condition at time of disposition: Stable - Referrals Referrals: Lazaro Anand MD [Primary Care Provider] - Carlos Stoner MD [Staff Physician] - - Patient Instructions Printed Discharge Instructions: Intermittent Claudication (Alternative Therapy) Additional Instructions: Please follow up with Dr. Stoner. Please return to the ED with any further concerns. Please take all medications as prescribed. - Post Discharge Activity - Attestations Physician Attestion: 10/31/17 09:38 I, Dr. Manjeet Buckner MD, attest that this document has been prepared under my direction and personally reviewed by me in its entirety. I further attest, that it accurately reflects all work, treatment, procedures and medical decision -making performed by me.
--- NOTE | 2017-10-30 19:07 | PDOC ---
*Physical Exam - Vital Signs Last Vital Signs Temp Pulse Resp BP Pulse Ox 98.5 F 81 20 126/81 96 10/30/17 12:15 10/30/17 18:00 10/30/17 18:00 10/30/17 18:00 10/30/17 18:00 - Physical Exam Comments: 10/30/17 19:55 Gen:[id number], nad foot: bluish hue to end of big toe, foot is warm, sensaiton intact, motor strength intact ED Treatment Course - LABORATORY CBC & Chemistry Diagram: 10/30/17 13:10 10/30/17 13:10 - ADDITIONAL ORDERS Additional order review: Laboratory Results 10/30/17 10/30/17 10/30/17 13:10 13:10 13:10 PT with INR 12.30 INR 1.09 D PTT (Actin FS) 36.9 H Sodium 140 Potassium 4.5 Chloride 104 Carbon Dioxide 28 Anion Gap 8 BUN 14 D Creatinine 1.0 Creat Clearance w eGFR > 60 Random Glucose 93 Calcium 9.4 Total Bilirubin 0.4 D AST 20 D ALT 24 D Alkaline Phosphatase 84 Total Protein 7.9 Albumin 4.0 D Blood Type A POSITIVE Antibody Screen Negative 10/30/17 13:10 RBC 5.25 D MCV 92.3 MCHC 34.5 RDW 15.3 MPV 7.0 L Neutrophils % 59.5 Lymphocytes % 29.1 Monocytes % 9.2 Eosinophils % 1.2 D Basophils % 1.0 Medical Decision Making - Medical Decision Making 10/30/17 19:56 a/p: pt was signed out by the prior attending pending cta aorta with runoff -case discussed with Dr. Grubbs -recommends d/c to home given ct findings of no acute occlusion on ct -will review the ct and call pt this plan was discussed in full detail pt wants to go home discussed all reasons to return to the ED and need for follow up *DC/Admit/Observation/Transfer Diagnosis at time of Disposition: Toe pain - Discharge Dispostion Disposition: HOME Condition at time of disposition: Stable Decision to Admit order: No - Referrals Referrals: Lazaro Anand MD [Primary Care Provider] - Carlos Stoner MD [Staff Physician] - - Patient Instructions Printed Discharge Instructions: Intermittent Claudication (Alternative Therapy) Additional Instructions: Please follow up with Dr. Stoner. Please return to the ED with any further concerns. Please take all medications as prescribed. - Post Discharge Activity - Attestations Physician Attestion: 10/30/17 20:09 I, Dr. Liat Nguyen, DO, attest that this document has been prepared under my direction and personally reviewed by me in its entirety. I further attest, that it accurately reflects all work, treatment, procedures and medical decision -making performed by me.
[2017-10-30 20:27] VITALS: BP 114/75; PULSE 88
--- NOTE | 2017-10-31 11:19 | EKG ---
Test Reason : Blood Pressure : / mmHG Vent. Rate : 074 BPM Atrial Rate : 074 BPM P-R Int : 126 ms QRS Dur : 084 ms QT Int : 386 ms P-R-T Axes : 045 051 023 degrees QTc Int : 428 ms NORMAL SINUS RHYTHM NORMAL ECG WHEN COMPARED WITH ECG OF 08-AUG-2017 03:34, NO SIGNIFICANT CHANGE WAS FOUND Confirmed by VERNA ASHLEY MD ([id number]) on 10/31/2017 11:18:49 AM Referred By: Confirmed By:VERNA ASHLEY MD
== END 2017-10-30 20:27 | disposition home or self-care (01) ==
LOC: JER 11:58
DX: I73.89 Other specified peripheral vascular diseases (principal); M79.674 Pain in right toe(s); Z87.891 Personal history of nicotine dependence
CPT/HCPCS: 36415; 75635-TC; 80053; 85025; 85610; 85730; 86850; 86900; 86901; 93005; 93010; 99283-25

== ENCOUNTER 2018-03-12 11:14 | Inpatient (IN) | payer BC ==
[2018-03-12 11:23] VITALS: BMI 26.1
[2018-03-12] MEDS ORDERED: HEPARIN NA (PORCINE) 5,000 UNITS/ML 1ML VIAL IV ONE (11:33)
--- NOTE | 2018-03-12 11:37 | PDOC ---
History of Present Illness <Jaspreet Rodríguez - Last Filed: 03/12/18 12:37> - General History Source: Patient Exam Limitations: No Limitations - History of Present Illness Initial Comments: 03/12/18 13:07 57-year-old male sent in by Dr. Stoner for admission for right lower extremity thrombectomy. Patient has had 4 surgeries prior to the right lower extremity secondary to occlusion and venous insufficiency. Patient has no other complaints at this time except for burning pain to his right heel and right calf. Timing/Duration: constant Severity: mild Associated Symptoms: reports: denies symptoms <Nelly Albarado - Last Filed: 03/12/18 14:10> - General Chief Complaint: Pain, Acute Stated Complaint: PCP SENT/ADMISSION/O.R Time Seen by Provider: 03/12/18 11:25 Past History <Jaspreet Rodríguez - Last Filed: 03/12/18 12:37> - Travel Traveled outside of the country in the last 30 days: No - Past Medical History Anemia: No Asthma: No Cancer: No Cardiac Disorders: No CVA: No COPD: No CHF: No DVT: No Dementia: No Diabetes: No GI Disorders: No Disorders: No HTN: No Hypercholesterolemia: Yes Kidney Stones: Yes Liver Disease: No Seizures: No Thyroid Disease: No Other medical history: PAD - Surgical History Abdominal Surgery: No Appendectomy: No Cardiac Surgery: No Cholecystectomy: No Lung Surgery: No Neurologic Surgery: No Orthopedic Surgery: No - Suicide/Smoking/Psychosocial Hx Smoking Status: Yes Smoking History: Never smoked Have you smoked in the past 12 months: No Number of Cigarettes Smoked Daily: 0 If you are a former smoker, when did you quit?: cigars, 4 months ago Cigars Per Day: 5 Information on smoking cessation initiated: No 'Breaking Loose' booklet given: 08/08/17 Hx Alcohol Use: No Drug/Substance Use Hx: No Substance Use Type: Alcohol Hx Substance Use Treatment: No Patient Lives Alone: No Lives with/in: spouse/SO <Nelly Albarado - Last Filed: 03/12/18 14:10> - Past Medical History Allergies/Adverse Reactions: Allergies Allergy/AdvReac Type Severity Reaction Status Date / Time Penicillins Allergy Verified 03/12/18 11:17 Home Medications: Ambulatory Orders Aspirin [ASA -] 81 mg PO DAILY #30 tab.chew 12/02/17 Enoxaparin Sodium [Lovenox] 80 mg SQ BID #60 syringe 12/02/17 Docusate Sodium [Colace -] 100 mg PO DAILY #7 capsule 12/17/17 Gabapentin [Neurontin] 300 mg PO TID 03/12/18 Simvastatin 20 mg PO HS 03/12/18 Review of Systems - Review of Systems Able to Perform ROS?: No Constitutional: No: Symptoms Reported HEENTM: No: Symptoms Reported Respiratory: No: Symptoms reported Cardiac (ROS): No: Symptoms Reported ABD/GI: No: Symptoms Reported : No: Symptoms Reported Musculoskeletal: No: Joint Pain, Muscle Pain, Muscle Weakness Integumentary: No: Symptoms Reported Neurological: Yes: Tingling (rt foot and calf) Endocrine: No: Symptoms Reported Hematologic/Lymphatic: No: Symptoms Reported <Nelly Albarado - Last Filed: 03/12/18 14:10> *Physical Exam - Vital Signs Last Vital Signs Temp Pulse Resp BP Pulse Ox 98.3 F 98 H 18 142/89 100 03/12/18 11:18 03/12/18 11:18 03/12/18 11:18 03/12/18 11:18 03/12/18 11:18 <Jaspreet Rodríguez - Last Filed: 03/12/18 12:37> - Vital Signs Last Vital Signs Temp Pulse Resp BP Pulse Ox 98.3 F 98 H 18 142/89 100 03/12/18 11:18 03/12/18 11:18 03/12/18 11:18 03/12/18 11:18 03/12/18 11:18 - Physical Exam General Appearance: Yes: Nourished, Appropriately Dressed. No: Apparent Distress HEENT: negative: Pale Conjunctivae Neck: positive: Supple Respiratory/Chest: positive: Lungs Clear, Normal Breath Sounds. negative: Respiratory Distress, Accessory Muscle Use Cardiovascular: positive: Regular Rhythm, Regular Rate. negative: Murmur Vascular Pulses: Dorsalis-Pedis (R): 2+, Doralis-Pedis (L): 0 Gastrointestinal/Abdominal: positive: Soft. negative: Tenderness Musculoskeletal: positive: Normal Inspection Extremity: positive: Normal Capillary Refill, Normal Inspection, Normal Range of Motion. negative: Tender, Coldness, Swelling, Calf Tenderness Integumentary: positive: Normal Color, Warm, Moist Neurologic: positive: Motor Strength 5/5 (ambulatory) <Nelly Albarado - Last Filed: 03/12/18 14:10> Heart Score/ECG Review - ECG Intrepretation Rhythm: Regular Rhythm (normal sinus rhythm 90. intervals are regular) <Nelly Albarado - Last Filed: 03/12/18 14:10> ED Treatment Course - LABORATORY CBC & Chemistry Diagram: 03/12/18 11:49 03/12/18 11:49 - ADDITIONAL ORDERS Additional order review: Laboratory Results 03/12/18 11:49 PT with INR 12.00 INR 1.06 03/12/18 11:49 RBC 5.42 MCV 89.1 MCHC 33.1 RDW 17.2 H MPV 7.4 L Neutrophils % 64.7 Lymphocytes % 26.9 Monocytes % 6.6 Eosinophils % 1.0 Basophils % 0.8 - Medications Given in the ED: ED Medications Discontinued Medications Generic Name Dose Route Start Last Admin Trade Name Freq PRN Reason Stop Dose Admin Heparin Sodium (Porcine) 5,000 unit 03/12/18 11:33 03/12/18 12:14 Heparin - IV 03/12/18 11:34 5,000 unit ONCE ONE Administration <MarcosJaspreet - Last Filed: 03/12/18 12:37> - LABORATORY CBC & Chemistry Diagram: 03/12/18 11:49 03/12/18 11:49 - RADIOLOGY Radiology Studies Ordered: Category Date Time Status CHEST X-RAY PORTABLE* [RAD] Stat Radiology 03/12/18 11:30 Ordered <Nelly Albarado - Last Filed: 03/12/18 14:10> Medical Decision Making - Medical Decision Making 03/12/18 12:37 I reviewed the case of the mid-level practitioner and was available for consultation while in the emergency department <Jaspreet Rodríguez - Last Filed: 03/12/18 12:37> - Medical Decision Making 03/12/18 14:06 Patient sent in by Dr. Stoner for surgery. Patient pending a left arterial thrombectomy. Patient has had approximately [address] Stoner on the right lower extremity. Patient denies chest pain, shortness of breath, skin discoloration, temperature changes, or swelling leg. Patient has no complaints of weakness. Preop labs and imaging an EKG ordered patient admitted to Dr. Stoner 03/12/18 14:09 Laboratory Tests 03/12/18 03/12/18 03/12/18 11:49 11:49 11:49 WBC 9.9 Hgb 16.0 Hct 48.3 D RDW 17.2 H Plt Count 429 MPV 7.4 L INR 1.06 Sodium 136 Potassium 4.8 Chloride 103 Carbon Dioxide 26 Anion Gap 7 L BUN 19 H Creatinine 1.1 Random Glucose 94 Calcium 9.9 Total Bilirubin 0.2 AST 19 ALT 22 Alkaline Phosphatase 100 Total Protein 8.0 Albumin 3.7 Urine Ketones Urine Blood Urine Nitrite Ur Leukocyte Esterase 03/12/18 12:56 WBC Hgb Hct RDW Plt Count MPV INR Sodium Potassium Chloride Carbon Dioxide Anion Gap BUN Creatinine Random Glucose Calcium Total Bilirubin AST ALT Alkaline Phosphatase Total Protein Albumin Urine Ketones Negative Urine Blood Negative Urine Nitrite Negative Ur Leukocyte Esterase Negative Chest x-ray shows no infiltrate or edema the lungs or acute change/suspicious finding noted. Patient was seen by surgical PA, recommending a heparin drip. Heparin drip ordered and initiated. Admission placed. <Nelly Albarado - Last Filed: 03/12/18 14:10> *DC/Admit/Observation/Transfer <Jaspreet Rodríguez - Last Filed: 03/12/18 12:37> - Discharge Dispostion Decision to Admit order: Yes <Nelly Albarado - Last Filed: 03/12/18 14:10> Diagnosis at time of Disposition: Occlusion of artery of leg
[2018-03-12] MEDS ORDERED: HEPARIN - 25,000 UNIT in SODIUM CHLORIDE 495 ML IV SCH ×2 (11:45→19:30)
[2018-03-12] MEDS ORDERED: HEPARIN INFUSION - 25,000 UNITS/500 ML INFUS.BAG IVPB ONE ×2 (11:57→19:19)
[2018-03-12] MEDS ORDERED: HEPARIN NA (PORCINE) 5,000 UNITS/ML 1ML VIAL ONE ×5 (11:57→18:29)
[2018-03-12 12:08] LABS: BASO % 0.8 % (0-2.0); HEMATOCRIT 48.3 % (35.4-49); LYMPH % 26.9 % (8-40); MCH 29.5 pg (25.7-33.7); MCHC 33.1 g/dl (32.0-35.9); MEAN CELL VOLUME 89.1 fl (80-96); MEAN PLT VOLUME 7.4 fl (7.5-11.1); MONO % 6.6 % (3.8-10.2); NEUT % 64.7 % (42.8-82.8); PLATELET COUNT 429 K/MM3 (134-434); RBC 5.42 M/mm3 (4.00-5.60); RDW 17.2 % (11.9-15.9); WHITE BLOOD COUNT 9.9 K/mm3 (4.0-10.0)
[2018-03-12 12:24] LABS: INR 1.06 (0.83-1.09)
[2018-03-12 12:47] LABS: ALBUMIN 3.7 g/dl (3.4-5.0); ALK PHOS 100 U/L (45-117); ANION GAP 7 MMOL/L (8-16); BILIRUBIN,TOTAL 0.2 mg/dL (0.2-1); BLOOD UREA NITROGEN 19 mg/dL (7-18); CALCIUM 9.9 mg/dL (8.5-10.1); CHLORIDE 103 mmol/L (98-107); CO2 26 mmol/L (21-32); CREATININE 1.1 mg/dL (0.55-1.3); GLUCOSE,RANDOM 94 mg/dL (74-106); POTASSIUM 4.8 mmol/L (3.5-5.1); SGOT/AST 19 U/L (15-37); SGPT/ALT 22 U/L (13-61); SODIUM 136 mmol/L (136-145)
[2018-03-12 13:09] LABS: URINE APPEARANCE CLEAR; URINE BILIRUBIN NEGATIVE (<2.0 mg/dL); URINE COLOR LTYELLOW; URINE GLUCOSE (UA) NEGATIVE (NEGATIVE); URINE KETONE NEGATIVE (NEGATIVE); URINE LEUK ESTERASE NEGATIVE (NEGATIVE); URINE NITRITE NEGATIVE (NEGATIVE); URINE PROTEIN NEGATIVE (NEGATIVE); URINE UROBILINOGEN NEGATIVE mg/dL (0.2-1.0)
--- NOTE | 2018-03-12 14:30 | EKG ---
Test Reason : Blood Pressure : / mmHG Vent. Rate : 090 BPM Atrial Rate : 090 BPM P-R Int : 128 ms QRS Dur : 082 ms QT Int : 354 ms P-R-T Axes : 058 051 030 degrees QTc Int : 433 ms NORMAL SINUS RHYTHM POSSIBLE LEFT ATRIAL ENLARGEMENT BORDERLINE ECG WHEN COMPARED WITH ECG OF 30-NOV-2017 08:36, NO SIGNIFICANT CHANGE WAS FOUND Confirmed by JOSEFA ESPINOZA MD ([id number]) on 03/12/2018 2:29:41 PM Referred By: Confirmed By:JOSEFA ESPINOZA MD
--- NOTE | 2018-03-12 16:28 | HP ---
Admitting History and Physical - Admission Chief Complaint: RLE pain History of Present Illness: 57 year old male with history of aortobifemoral bypass in 2011. in June he presented with thrombosis of the bypass and required multiple thrombectomy procedures to restore flow. Last visit/OR 11/30/17 required emergency open thrombectomy right femoral bypass. Angiogram right leg and iliac graft for right femoral artery occlusion. Dr. Stoner sent him to ED due to re- occlusion of his graft. Denies chest pain, shortness of breath, temperature changes, or LE swelling. Denies weakness or parasthesias. History Source: Patient, Medical Record Limitations to Obtaining History: No Limitations - Past Medical History Cardiovascular: Yes: HTN, Hyperlipdemia Renal/: Yes: Renal Calculi - Past Surgical History Past Surgical History: Yes: Bypass - Smoking History Smoking history: Former smoker Have you smoked in the past 12 months: No Aproximately how many cigarettes per day: 0 If you are a former smoker, when did you quit?: cigars, 4 months ago - Alcohol/Substance Use Hx Alcohol Use: No History of Substance Use: reports: None - Social History ADL: Independent History of Recent Travel: No <Victor M Oconnor P - Last Filed: 03/12/18 16:47> Home Medications <Victor M Oconnor - Last Filed: 03/12/18 16:47> <Carlos Stoner - Last Filed: 03/13/18 10:14> - Allergies Allergies/Adverse Reactions: Allergies Allergy/AdvReac Type Severity Reaction Status Date / Time Penicillins Allergy Verified 03/12/18 11:17 - Home Medications Home Medications: Ambulatory Orders Aspirin [ASA -] 81 mg PO DAILY #30 tab.chew 12/02/17 Enoxaparin Sodium [Lovenox] 80 mg SQ BID #60 syringe 12/02/17 Docusate Sodium [Colace -] 100 mg PO DAILY #7 capsule 12/17/17 Gabapentin [Neurontin] 300 mg PO TID 03/12/18 Simvastatin 20 mg PO HS 03/12/18 Review of Systems - Review of Systems Constitutional: reports: No Symptoms Eyes: reports: No Symptoms HENT: reports: No Symptoms Neck: reports: No Symptoms Cardiovascular: reports: No Symptoms Respiratory: reports: No Symptoms Gastrointestinal: reports: No Symptoms Genitourinary: reports: No Symptoms Musculoskeletal: reports: No Symptoms Integumentary: reports: Change in Color (right foot appears slightly cyanotic) Endocrine: reports: No Symptoms Hematology/Lymphatic: reports: No Symptoms Psychiatric: reports: No Symptoms Pain Intensity: 6 <Victor M Oconnor P - Last Filed: 03/12/18 16:47> Physical Examination Vital Signs: Vital Signs Temperature 98.3 F 03/12/18 15:26 Pulse Rate 80 03/12/18 15:26 Respiratory Rate 18 03/12/18 15:26 Blood Pressure 127/84 03/12/18 15:26 O2 Sat by Pulse Oximetry (%) 98 03/12/18 15:26 Constitutional: Yes: Well Nourished, No Distress, Calm Eyes: Yes: WNL, Conjunctiva Clear, EOM Intact HENT: Yes: WNL, Atraumatic, Normocephalic Neck: Yes: WNL, Supple, Trachea Midline Cardiovascular: Yes: WNL, Regular Rate and Rhythm Respiratory: Yes: WNL, Regular, CTA Bilaterally Gastrointestinal: Yes: WNL, Normal Bowel Sounds Musculoskeletal: Yes: WNL Extremities: Yes: Cool, Cyanosis (Right foot). No: Calf Tenderness Edema: No Edema: LLE: 1+ Peripheral Pulses: Left Radial: 2+, Right Radial: 2+, Right Dorsalis Pedis: 0, Left Femoral: 1+, Right Femoral: 1+ Neurological: Yes: WNL, Alert, Oriented ...Motor Strength: WNL Psychiatric: Yes: WNL, Alert, Oriented Labs: CBC, [facility] 03/12/18 11:49 03/12/18 11:49 <Victor M Oconnor P - Last Filed: 03/12/18 16:47> Vital Signs: Vital Signs Temperature 97.4 F L 03/13/18 07:06 Pulse Rate 65 03/13/18 07:06 Respiratory Rate 20 03/13/18 07:06 Blood Pressure 124/66 03/13/18 07:06 O2 Sat by Pulse Oximetry (%) 98 03/12/18 21:00 Labs: CBC, [facility] 03/12/18 11:49 03/12/18 11:49 <Carlos Stoner - Last Filed: 03/13/18 10:14> Imaging - Results Chest X-ray: Report Reviewed, Image Reviewed <Victor M Oconnor - Last Filed: 03/12/18 16:47> Problem List - Problems (1) Thrombosis of aortic bifurcation bypass graft Assessment/Plan: Patient sent to ED from Dr. Stoner's office due to occulsion of his RLE graft. Per Dr. Stoner, patient doesn't need CTA or U/S studies. Cont NPO IVF Heparin bolus followed by drip Going to OR this taya for open thrombectomy, angio and any related procedures as necessary indicated by intra-op findings. Medical optimization Type and Screen Coags EKG Above plan dicussed with Dr. Stoner and agrees. Code(s): T82.868A - THROMBOSIS DUE TO VASCULAR PROSTH DEV/GRFT, INIT Qualifiers: Encounter type: subsequent encounter Qualified Code(s): T82.868D - Thrombosis due to vascular prosthetic devices, implants and grafts, subsequent encounter <Victor M Oconnor P - Last Filed: 03/12/18 16:47> Assessment/Plan Patient followed closely and was seen last week with palpable pedal pulse. He developed pain and cold foot this morning. He has been on Lovenox BID. He will need thrombectomy and angioplasty today. <Carlos Stoner - Last Filed: 03/13/18 10:14>
[2018-03-12] MEDS ORDERED: ONDANSETRON 4 MG/2 ML VIAL IVPUSH PRN ×2 (16:40→19:30)
[2018-03-12] MEDS ORDERED: HEPARIN NA (PORCINE) 5,000 UNITS/ML 1ML VIAL IVPUSH ONE ×2 (16:45→19:30)
[2018-03-12] MEDS ORDERED: HEPARIN NA (PORCINE) 5,000 UNITS/ML 1ML VIAL IVPUSH PRN ×6 (16:45→19:30)
[2018-03-12] MEDS ORDERED: MIDAZOLAM HCL 2 MG/2 ML SINGLE DOSE VIAL ONE (17:15)
[2018-03-12] MEDS ORDERED: PROPOFOL 20 ML ONE (17:20)
[2018-03-12] MEDS ORDERED: ceFAZolin SODIUM 1 GM VIAL ONE (17:29)
[2018-03-12] MEDS ORDERED: ceFAZolin SODIUM 1 GM VIAL IVPB ONE (17:33)
[2018-03-12] MEDS ORDERED: HEPARIN NA (PORCINE) 5,000 UNITS/ML 1ML VIAL SQ ONE (17:45)
[2018-03-12] MEDS ORDERED: DEXAMETHASONE SOD PHOSPHATE 4 MG/1 ML VIAL ONE (17:52)
--- NOTE | 2018-03-12 19:20 | OP ---
Operative Note - Note: Operative Date: 03/12/18 Pre-Operative Diagnosis: Thrombosed bypass graft right leg Operation: Open thrombectomy right leg bypass. Angioplasty femoral artery. Angioplasty anterior tibial artery and dorsalis pedis artery Findings: Thrombosed graft to anterior tibial artery. Adherent material at femoral anastomosis Stenosis >80% of anterior tibial artery just distal to graft anastomosis. Occlusion of dorsalis pedis artery Patent posterior tibial artery at the ankle. Post-Operative Diagnosis: Same as Pre-op Surgeon: Carlos Stoner Share[employer] Application Architect: Victor M Oconnor Anesthesiologist/TOOL HONING MACHINE SET UP OPERATOR: Karen Williamson Anesthesia: General Specimens Removed: Thrombus from graft Estimated Blood Loss (mls): 100
[2018-03-12] MEDS ORDERED: HYDROmorphone HCL CARPU-JECT 2 MG/1 ML DISP.SYRIN IVPB PRN (19:22)
[2018-03-12] MEDS ORDERED: ACETAMINOPHEN 325 MG TABLET (FP) PO PRN ×2 (19:27→19:28)
[2018-03-12] MEDS ORDERED: oxyCODONE HCL 5 MG TABLET PO PRN ×2 (19:27→19:28)
[2018-03-12] MEDS: GABAPENTIN 300 MG CAPSULE (FP) PO SCH (21:52)
[2018-03-13] MEDS: GABAPENTIN 300 MG CAPSULE (FP) PO SCH ×3 (06:21→21:14)
[2018-03-13 08:11] LABS: INR 1.02 (0.83-1.09); PROTHROMBIN TIME (PATIENT) 11.5 SEC (9.7-13.0)
[2018-03-13] MEDS: ASPIRIN 81 MG CHEWABLE TABLETS PO SCH (10:56)
[2018-03-13] MEDS: DOCUSATE SODIUM 100 MG CAPSULE (FP) PO SCH (10:56)
--- NOTE | 2018-03-13 11:07 | PN ---
Progress Note (short form) - Note Progress Note: 57yo M s/p Right femoral graft thrombectomy POD 1, pt seen at bedside. Pt states that his leg and foot pain has improved. Pt denies any n/v, fever, chills. Pt ambulating and urinating well. Last Vital Signs Temp Pulse Resp BP Pulse Ox 97.4 F L 65 20 124/66 98 03/13/18 07:06 03/13/18 07:06 03/13/18 07:06 03/13/18 07:06 03/12/18 21:00 CBC, BMP 03/12/18 11:49 03/12/18 11:49 INR, PTT INR 1.02 (0.83-1.09) 03/13/18 06:20 PE: Gen: A&O x3 Resp: breathing comfortably Heart: RRR Ext: RLE has faint but palpable pedal pulse, foot warm. RLE thigh incision is clean with no erythema or discharge dressing in place. Problem List - Problems (1) Occlusion of artery of leg Assessment/Plan: Plan -continue heparin drip and ASA -vascular checks Qshift -OOB/Ambulate Code(s): I70.209 - UNSP ATHSCL [place] ARTERIES OF EXTREMITIES, UNSP EXTREMITY (2) Arterial occlusion Code(s): I70.90 - UNSPECIFIED ATHEROSCLEROSIS
--- NOTE | 2018-03-13 11:46 | PN ---
Progress Note (short form) - Note Progress Note: ANESTHESIOLOGY POST-OP CHECK 57M s/p RLE angiogram/plasty and open thrombectomy under general anesthesia, POD #1. No acute complaints. Denies N/V. Pain 1-3/10 and tolerable. Vital Signs Temperature 97.4 F L 03/13/18 07:06 Pulse Rate 65 03/13/18 07:06 Respiratory Rate 20 03/13/18 07:06 Blood Pressure 124/66 03/13/18 07:06 O2 Sat by Pulse Oximetry (%) 98 03/12/18 21:00 Active Medications Acetaminophen (Tylenol -) 650 mg PO Q4H PRN PRN Reason: PAIN LEVEL 6-10 Stop: 03/15/18 19:26 Acetaminophen (Tylenol -) 325 mg PO Q4H PRN PRN Reason: PAIN LEVEL 1-5 Stop: 03/15/18 19:27 Aspirin (Asa -) 81 mg PO DAILY [facility] Last Admin: 03/13/18 10:56 Dose: 81 mg Atorvastatin Calcium (Lipitor -) 10 mg PO [facility] Docusate Sodium (Colace -) 100 mg PO DAILY [facility] Last Admin: 03/13/18 10:56 Dose: 100 mg Fentanyl (Sublimaze Injection -) 50 mcg IVPUSH [id number] PRN PRN Reason: PAIN-PACU ORDER X 4 DOSES ONLY Gabapentin (Neurontin -) 300 mg PO TID [facility] Last Admin: 03/13/18 06:21 Dose: 300 mg Heparin Sodium (Porcine) (Heparin -) 5,000 unit IVPUSH PRN PRN PRN Reason: Heparin Heparin Sodium (Porcine) (Heparin -) 1,000 unit IVPUSH PRN PRN PRN Reason: Heparin Heparin Sodium (Porcine) 25, (000 unit/ Sodium Chloride) 500 mls @ 20 mls/hr IV TITR [facility]; Protocol Last Admin: 03/12/18 19:25 Dose: 30 mls Ondansetron HCl (Zofran Injection) 4 mg IVPUSH Q6H PRN PRN Reason: NAUSEA AND/OR VOMITING Oxycodone HCl (Roxicodone -) 10 mg PO Q4H PRN PRN Reason: PAIN LEVEL 6-10 Oxycodone HCl (Roxicodone -) 5 mg PO Q4H PRN PRN Reason: PAIN LEVEL 1-5 Gen: Awake, alert, no apparent distress No apparent anesthesia complications. Pain controlled. Continue management as per primary team.
--- NOTE | 2018-03-13 15:14 | PN ---
Progress Note, Physician Chief Complaint: POD # 1 THROMBECTOMY LOWER EXTREMITY CHART AND NOTES REVIEWED FAMILY BEDSIDE - Current Medication List Current Medications: Active Medications Acetaminophen (Tylenol -) 650 mg PO Q4H PRN PRN Reason: PAIN LEVEL 6-10 Stop: 03/15/18 19:26 Acetaminophen (Tylenol -) 325 mg PO Q4H PRN PRN Reason: PAIN LEVEL 1-5 Stop: 03/15/18 19:27 Aspirin (Asa -) 81 mg PO DAILY [facility] Last Admin: 03/13/18 10:56 Dose: 81 mg Atorvastatin Calcium (Lipitor -) 10 mg PO [facility] Docusate Sodium (Colace -) 100 mg PO DAILY [facility] Last Admin: 03/13/18 10:56 Dose: 100 mg Fentanyl (Sublimaze Injection -) 50 mcg IVPUSH [id number] PRN PRN Reason: PAIN-PACU ORDER X 4 DOSES ONLY Gabapentin (Neurontin -) 300 mg PO TID [facility] Last Admin: 03/13/18 14:13 Dose: 300 mg Heparin Sodium (Porcine) (Heparin -) 5,000 unit IVPUSH PRN PRN PRN Reason: Heparin Heparin Sodium (Porcine) (Heparin -) 1,000 unit IVPUSH PRN PRN PRN Reason: Heparin Heparin Sodium (Porcine) 25, (000 unit/ Sodium Chloride) 500 mls @ 20 mls/hr IV TITR [facility]; Protocol Last Admin: 03/12/18 19:25 Dose: 30 mls Ondansetron HCl (Zofran Injection) 4 mg IVPUSH Q6H PRN PRN Reason: NAUSEA AND/OR VOMITING Oxycodone HCl (Roxicodone -) 10 mg PO Q4H PRN PRN Reason: PAIN LEVEL 6-10 Oxycodone HCl (Roxicodone -) 5 mg PO Q4H PRN PRN Reason: PAIN LEVEL 1-5 - Objective Vital Signs: Vital Signs Temperature 97.7 F 03/13/18 14:42 Pulse Rate 88 03/13/18 14:42 Respiratory Rate 18 03/13/18 14:42 Blood Pressure 115/68 03/13/18 14:42 O2 Sat by Pulse Oximetry (%) 98 03/12/18 21:00 Constitutional: Yes: Mild Distress Eyes: Yes: WNL HENT: Yes: WNL Neck: Yes: WNL Cardiovascular: Yes: WNL Respiratory: Yes: WNL Gastrointestinal: Yes: WNL Genitourinary: Yes: WNL Musculoskeletal: Yes: Other Extremities: Yes: Other Edema: No Peripheral Pulses WNL: Yes Integumentary: Yes: Venous Stasis Changes Wound/Incision: Yes: Dressing Dry and Intact Neurological: Yes: Pre-Existing Deficit ...Motor Strength: RLE Psychiatric: Yes: WNL Labs: CBC, BMP 03/12/18 11:49 03/12/18 11:49 INR, PTT INR 1.02 (0.83-1.09) 03/13/18 06:20 Problem List - Problems (1) Occlusion of artery of leg Code(s): I70.209 - UNSP ATHSCL [place] ARTERIES OF EXTREMITIES, UNSP EXTREMITY (2) Arterial occlusion Code(s): I70.90 - UNSPECIFIED ATHEROSCLEROSIS (3) Neuropathic pain of foot Code(s): G57.90 - UNSPECIFIED MONONEUROPATHY OF UNSPECIFIED LOWER LIMB Assessment/Plan POD # 1 THROMBECTOMY VASC SX FOLLOW UP CHECK LABS PT EVAL OOB TO CHAIR HEPARIN IV PAIN CONTROL AC? USP?
[2018-03-13] MEDS: ENOXAPARIN NA (PORCINE) 80 MG/0.8 ML DISP.SYRIN SQ SCH (21:14)
[2018-03-13] MEDS ORDERED: ATORVASTATIN CA 10 MG TABLET (FP) PO SCH (22:00)
[2018-03-14] MEDS: GABAPENTIN 300 MG CAPSULE (FP) PO SCH (05:30)
--- NOTE | 2018-03-14 07:21 | OP ---
DATE OF OPERATION: 03/12/2018 SURGEON: Carlos Stoner MD UX LEAD: JUSTIN Nuñez PROCEDURE: Open thrombectomy of a right leg bypass. Angioplasty of the femoral artery. Angioplasty of the anterior tibial artery and dorsalis pedis artery. PREOPERATIVE DIAGNOSIS: Thrombosed bypass graft, right leg. POSTOPERATIVE DIAGNOSIS: Thrombosed bypass graft, right leg, with stenosis of the femoral artery and the anterior tibial artery. ANESTHESIA: General. ANESTHESIOLOGIST: Karen Williamson DO OPERATIVE FINDINGS: The right femoral-tibial bypass graft was thrombosed. Following balloon thrombectomy, there was adherent thrombus and stenosis at the proximal anastomosis in the femoral artery. This was approximately 60% in severity. The anterior tibial artery distal to the anastomosis was 80% narrowed with runoff into the distal anterior tibial artery. The dorsalis pedis artery in the foot was occluded, and there was collateral flow to the posterior tibial artery, which was patent. OPERATIVE PROCEDURE: Following routine patient identification with side and site verification, general anesthesia was induced. The right leg and groin were prepped with ChloraPrep. Time-out was performed. A skin incision was made over the bypass graft in the lateral aspect of the upper thigh. Cautery was used for hemostasis. The graft was mobilized approximately 3 cm with length and encircled with vessel loops. It was opened with a transverse arteriotomy. The patient was systemically heparinized. A No. 4 Johnnie Catheter was passed proximally with removal of thrombus from the graft and hinduism of arterial inflow. A 9-Haitian sheath was placed into the graft and secured with a Jeffrey clamp. Retrograde angiography was performed which revealed a patent graft with adherent material at the level of the anastomosis in the groin. An AngioJet Thrombectomy Catheter was used to treat this area with improvement in the appearance, but residual stenosis of the proximal graft of approximately 60%. A 7-mm angioplasty balloon was used to dilate this area with good results and resolution of the stenosis. The graft was filled with heparin solution and was occluded with a vascular clamp after removing the sheath. Thrombectomy of the distal bypass was then performed using a No. 4 Johnnie Catheter to a level of the anastomosis. A No. 3 Johnnie was then passed distally through the anastomosis and withdrawn with removal of additional thrombus and return of back bleeding. The sheath was placed in the graft, and then a wire and flush catheter were advanced to the level of the anastomosis, and angiography performed. A 0.014-inch wire was then advanced under road-mapping through the stenosis of the proximal anterior tibial artery. The artery was then ballooned with a 3-mm balloon. This resulted in improved lumen with approximately 10% residual stenosis. The wire was then advanced distally into the occluded portion of the dorsalis pedis artery. This artery was then balloon dilated with a 2-mm balloon. This restored patency. There was no change in the runoff to the posterior tibial artery. The sheath and wires were removed, and the graft was filled with heparin solution. The graftotomy was closed with a running suture of 6-0 Prolene, and flow was then restored. A palpable pulse returned to the level of the ankle. Bleeding from the suture line was controlled with Surgicel. When hemostasis was achieved, the wounds were irrigated and closed with interrupted suture of 3-0 Vicryl on subcutaneous tissues and skin levy. Sterile dressings were applied, and the patient was taken to the recovery room in stable condition. José [id number]
[2018-03-14] MEDS: ASPIRIN 81 MG CHEWABLE TABLETS PO SCH (09:35)
[2018-03-14] MEDS: ENOXAPARIN NA (PORCINE) 80 MG/0.8 ML DISP.SYRIN SQ SCH (09:36)
[2018-03-14] MEDS: DOCUSATE SODIUM 100 MG CAPSULE (FP) PO SCH (09:36)
--- NOTE | 2018-03-14 10:24 | PN ---
Progress Note (short form) - Note Progress Note: No complaints. incision clean and dry Right foot warm, palpable DP and PT pulses Stable Home today on Lovenox and ASA
--- NOTE | 2018-03-14 10:28 | DS ---
Physical Examination Vital Signs: Vital Signs Temperature 97.4 F L 03/14/18 06:00 Pulse Rate 68 03/14/18 06:00 Respiratory Rate 18 03/14/18 06:00 Blood Pressure 120/85 03/14/18 06:00 O2 Sat by Pulse Oximetry (%) 97 03/13/18 21:00 Findings/Remarks: 57 year old with right fem-tibial bypass which had thrombosed on . He was on Lovenox and aspirin at home. An open surgical thrombectomy was performed with jain of pedal pulses. He is discharge on same home medications. Follow-up in 2 weeks in my office. Constitutional: Yes: No Distress Eyes: Yes: Conjunctiva Clear Neck: Yes: Supple Cardiovascular: Yes: Regular Rate and Rhythm Respiratory: Yes: Regular Gastrointestinal: Yes: Soft Extremities: Yes: WNL Edema: Yes Edema: RLE: 1+ Peripheral Pulses: Right Dorsalis Pedis: 2+ Wound/Incision: Yes: Clean/Dry Labs: CBC, BMP 03/12/18 11:49 03/12/18 11:49 Discharge Summary Reason For Visit: OCCLUSION OF ARTERY Current Active Problems Occlusion of artery of leg (Acute) Condition: Fair - Instructions Diet, Activity, Other Instructions: May shower Friday and remove bandage Referrals: Carlos Stoner MD [Staff Physician] - 2 Weeks Disposition: HOME - Home Medications Comprehensive Discharge Medication List: Ambulatory Orders Aspirin [ASA -] 81 mg PO DAILY #30 tab.chew 12/02/17 Enoxaparin Sodium [Lovenox] 80 mg SQ BID #60 syringe 12/02/17 Docusate Sodium [Colace -] 100 mg PO DAILY #7 capsule 12/17/17 Gabapentin [Neurontin] 300 mg PO TID 03/12/18 Simvastatin 20 mg PO HS 03/12/18
[2018-03-14 10:56] VITALS: BP 130/76; PULSE 80; TEMP 97.3
--- NOTE | 2018-03-14 12:32 | PN ---
Progress Note, Physician History of Present Illness: s/p thrombectomy of RLE - Objective Vital Signs: Vital Signs Temperature 97.3 F L 03/14/18 10:00 Pulse Rate 80 03/14/18 10:00 Respiratory Rate 03/14/18 10:00 Blood Pressure 130/76 03/14/18 10:00 O2 Sat by Pulse Oximetry (%) 97 03/14/18 09:00 Cardiovascular: Yes: Regular Rate and Rhythm Respiratory: Yes: Regular, CTA Bilaterally Gastrointestinal: Yes: Normal Bowel Sounds, Soft Extremities: Yes: Other (warm and good pulse) Labs: CBC, BMP 03/12/18 11:49 03/12/18 11:49 INR, PTT INR 1.02 (0.83-1.09) 03/13/18 06:20 Problem List - Problems (1) Arterial occlusion Assessment/Plan: -S/P Thrombectomy -on ASA and Lovenox as outpatient Code(s): I70.90 - UNSPECIFIED ATHEROSCLEROSIS (2) HLD (hyperlipidemia) Assessment/Plan: -Continue with statin Code(s): E78.5 - HYPERLIPIDEMIA, UNSPECIFIED
== END 2018-03-14 12:21 | disposition home or self-care (01) | DRG 254 ==
LOC: JER 11:14 → JASUSAT 11:37 → J8W 15:37 → JASUSAT 15:38 → J8W 15:38
PROVIDERS: ADMIT Surgery; ATTEND Surgery
PROC: B40FYZZ Plain Radiography of Right Lower Extremity Arteries using Other Contrast (ICD-10-PCS; 2018-03-12)
PROC: 04CP0ZZ Extirpation of Matter from Right Anterior Tibial Artery, Open Approach (ICD-10-PCS; principal; 2018-03-12 17:00)
PROC: 04CK0ZZ Extirpation of Matter from Right Femoral Artery, Open Approach (ICD-10-PCS; 2018-03-12 17:00)
DX: T82.868A Thrombosis due to vascular prosthetic devices, implants and grafts, initial encounter (principal); Y83.8 Other surgical procedures as the cause of abnormal reaction of the patient, or of later complication, without mention of misadventure at the time of the procedure; I70.291 Other atherosclerosis of native arteries of extremities, right leg; I10 Essential (primary) hypertension; G57.90 Unspecified mononeuropathy of unspecified lower limb; E78.5 Hyperlipidemia, unspecified; Z87.442 Personal history of urinary calculi; Z87.891 Personal history of nicotine dependence
CPT/HCPCS: 36415; 71045-TC-FY; 76000-TC-FY; 80053; 81003; 85025; 85610; 85730; 86850; 86900; 86901; 93005; 93010; 94760; 99282-25; J1644

== ENCOUNTER 2018-04-06 16:41 | Inpatient (IN) | payer BC ==
[2018-04-06 17:03] VITALS: BMI 27.0
--- NOTE | 2018-04-06 17:25 | PDOC ---
Attending Attestation - HPI HPI: 04/06/18 17:39 The patient is a 57 year old male with a past medical history of multiple vascular surgeries, arterial occlusion in bilateral lower extremities, 50 years of tobacco use since age 17, hyperlipidemia, and kidney stones who presents to the emergency department for evaluation of cold right foot with associated pain. Patient reports right foot pain beginning this morning. Patient was sent in by Dr. Stoner to be sent to the OR secondary to history of PVD. Vascular specialist: Dr. Stoner Allergies: Penicillins - Physicial Exam PE: wnwd 57 y/o male in no acute distress head ncat neck supple oropharynx no exudates neck supple Heart RRR. No gallops, murmurs, or rubs. lungs clear to auscultation bilaterally abd soft,nontender ext (+)Decrease TP and DP pulses. (+)Cool right foot, painful to touch. no e/c/c , MAEx4 skin dry,no rashes neuro A&Ox3,no gross focal neuro deficits <Nate Ribeiro - Last Filed: 04/06/18 17:39> - Resident Resident Name: David Hale - ED Attending Attestation I have performed the following: I have examined & evaluated the patient, The case was reviewed & discussed with the resident, I agree w/resident's findings & plan, Exceptions are as noted - Medical Decision Making 04/06/18 17:30 pt has severe PVD and has a painful cool rt foot w decreased dp and pt pulses 04/06/18 21:34 IMP PVD, vascular occlusion, going to OR <Florencai Hernandez - Last Filed: 04/06/18 21:35> Attestations - Attestations Documentation prepared by Nate Ribeiro, acting as medical service technician for Florencia Hernandez MD. <Nate Ribeiro - Last Filed: 04/06/18 17:39>
--- NOTE | 2018-04-06 17:28 | HP ---
Admitting History and Physical - Admission Chief Complaint: RLE pain History of Present Illness: 57 year old male very well know to Vascular Surgery Service. Pertinent PMHx of aortobifemoral bypass in 2011. In June he presented with thrombosis of the bypass and required multiple thrombectomy procedures to restore flow. Recently admitted on 03/12/18 with c/o RLE pain. He was taken to OR that night where Dr. Stoner performed an RLE open thrombectomy of the bypass. Angioplasty femoral artery. Angioplasty anterior tibial artery and dorsalis pedis artery. Patient c/o increased right foot pain and temperature change. Patient was scheduled for new RLE bypass in Apr. Was instructed to call Dr. Stoner should anything occur prior to surgery. Sent in for further evaluation. In ED patient ambulating with antalgic gait in Fast Track. Denies chest pain, shortness of breath, or LE swelling. Denies weakness or parasthesias. History Source: Patient Limitations to Obtaining History: No Limitations - Past Medical History Cardiovascular: Yes: HTN, Hyperlipdemia Renal/: Yes: Renal Calculi - Past Surgical History Past Surgical History: Yes: Bypass - Smoking History Smoking history: Current every day smoker Have you smoked in the past 12 months: No Aproximately how many cigarettes per day: 0 If you are a former smoker, when did you quit?: cigars, 4 months ago - Alcohol/Substance Use Hx Alcohol Use: No History of Substance Use: reports: None - Social History ADL: Independent History of Recent Travel: No <Victor M Oconnor - Last Filed: 04/06/18 17:28> Home Medications <Victor M Oconnor - Last Filed: 04/06/18 17:28> <Carlos Stoner - Last Filed: 04/07/18 10:59> - Allergies Allergies/Adverse Reactions: Allergies Allergy/AdvReac Type Severity Reaction Status Date / Time Penicillins Allergy Verified 04/06/18 16:59 - Home Medications Home Medications: Ambulatory Orders Aspirin [ASA -] 81 mg PO DAILY #30 tab.chew 12/02/17 Enoxaparin Sodium [Lovenox] 80 mg SQ BID #60 syringe 12/02/17 Gabapentin [Neurontin] 300 mg PO TID 03/12/18 Simvastatin 20 mg PO HS 03/12/18 Review of Systems - Review of Systems Constitutional: reports: No Symptoms Eyes: reports: No Symptoms HENT: reports: No Symptoms Neck: reports: No Symptoms Cardiovascular: reports: No Symptoms Respiratory: reports: No Symptoms Gastrointestinal: reports: No Symptoms Genitourinary: reports: No Symptoms Musculoskeletal: reports: Extremity Pain (Right foot) Integumentary: denies: Change in Color, Erythema Neurological: denies: Numbness, Parasthesia Endocrine: reports: No Symptoms Hematology/Lymphatic: reports: No Symptoms Psychiatric: reports: No Symptoms Pain Intensity: 8 <Victor M Oconnor P - Last Filed: 04/06/18 17:28> Physical Examination Vital Signs: Vital Signs Temperature 99.2 F 04/06/18 17:02 Pulse Rate 91 H 04/06/18 17:02 Respiratory Rate 18 04/06/18 17:02 Blood Pressure 133/82 04/06/18 17:02 O2 Sat by Pulse Oximetry (%) 96 04/06/18 17:02 Constitutional: Yes: Well Nourished, No Distress, Calm Eyes: Yes: WNL, Conjunctiva Clear, EOM Intact HENT: Yes: WNL, Atraumatic, Normocephalic Neck: Yes: WNL, Supple, Trachea Midline Cardiovascular: Yes: WNL Respiratory: Yes: WNL Gastrointestinal: Yes: WNL Renal/: Yes: WNL Musculoskeletal: Yes: WNL Extremities: Yes: Cold (Right foot), Cyanosis. No: Erythema Edema: No Peripheral Pulses WNL: No Peripheral Pulses: Right Dorsalis Pedis: 0 (absent PT ), Right Femoral: 0 Neurological: Yes: WNL Psychiatric: Yes: WNL <Victor M Oconnor P - Last Filed: 04/06/18 17:28> Vital Signs: Vital Signs Temperature 97.8 F 04/07/18 02:58 Pulse Rate 84 04/07/18 02:58 Respiratory Rate 20 04/07/18 02:58 Blood Pressure 114/72 04/07/18 02:58 O2 Sat by Pulse Oximetry (%) 96 04/06/18 22:40 Labs: CBC, BMP 04/06/18 17:30 04/06/18 17:30 <Carlos Stoner - Last Filed: 04/07/18 10:59> Problem List - Problems (1) Cold right foot Assessment/Plan: 57 yo male with h/o Open thrombectomy right leg bypass. Angioplasty femoral artery. Angioplasty anterior tibial artery and dorsalis pedis artery. Presents to [facility] ED w/ c/o increased pain to right foot. Patient scheduled for new bypass in Nov. but appears his graft has glotted once again. Patient has absent RLE femoral/PT/DP via handheld doppler. 1. Admit to Dr. Stoner's service 2. NPO 3. IVF 4. No need for Heparin bolus as patient received Lovenox this morning. 5. STAT coags 6. STAT Type and screen 7. Going to OR at 6PM for Angio, possible thrombectomy 8. Tight glycemic control Above plan discussed with Dr. Stoner and agrees. Code(s): R20.9 - UNSPECIFIED DISTURBANCES OF SKIN SENSATION (2) Occlusion of artery of leg Code(s): I70.209 - UNSP ATHSCL [place] ARTERIES OF EXTREMITIES, UNSP EXTREMITY <Vitcor M Oconnor - Last Filed: 04/06/18 17:28> Assessment/Plan History and exam as above. Mr Dave was seen last week in my office with palpable DP pulse. Plan for new right leg bypass with saphenous vein to the posterior tibial artery discussed and scheduled. Unfortunately, he has reoccluded the bypass despite daily Lovenox injections. We will proceed with thrombectomy today, post-op Heparin drip and plan the bypass for later this week. <Carlos Stoner - Last Filed: 04/07/18 10:59>
[2018-04-06 17:43] LABS: HEMATOCRIT 48.5 % (35.4-49); HEMOGLOBIN 16.3 GM/dL (11.7-16.9); MCH 30.2 pg (25.7-33.7); MCHC 33.6 g/dl (32.0-35.9); MEAN CELL VOLUME 89.9 fl (80-96); MEAN PLT VOLUME 7.4 fl (7.5-11.1); PLATELET COUNT 358 K/MM3 (134-434); RDW 17.4 % (11.9-15.9); WHITE BLOOD COUNT 10.5 K/mm3 (4.0-10.0)
[2018-04-06] MEDS ORDERED: HEPARIN NA (PORCINE) 5,000 UNITS/ML 1ML VIAL ONE ×3 (18:00→21:03)
--- NOTE | 2018-04-06 18:25 | PDOC ---
History of Present Illness - General Chief Complaint: Pain Stated Complaint: ANKLE PAIN Time Seen by Provider: 04/06/18 17:12 History Source: Patient Exam Limitations: No Limitations - History of Present Illness Initial Comments: 04/06/18 18:19 Patient is a 57M with extensive vascular issues with surgical repairs here today complaining of foot pain that started this morning. He reports that he went to Dr Almodovar's office where he reports he did not have dorsalis pedis, posterior tibialis or femoral pulses. Patient is currently on lovenox for anticoagulation. Denies fevers, chills, nausea, vomiting. Denies chest pain, shortness of breath. Past History - Past Medical History Allergies/Adverse Reactions: Allergies Allergy/AdvReac Type Severity Reaction Status Date / Time Penicillins Allergy Verified 04/06/18 16:59 Home Medications: Ambulatory Orders Aspirin [ASA -] 81 mg PO DAILY #30 tab.chew 12/02/17 Enoxaparin Sodium [Lovenox] 80 mg SQ BID #60 syringe 12/02/17 Gabapentin [Neurontin] 300 mg PO TID 03/12/18 Simvastatin 20 mg PO HS 03/12/18 Anemia: No Asthma: No Cancer: No Cardiac Disorders: No CVA: No COPD: No CHF: No DVT: No Dementia: No Diabetes: No GI Disorders: No Disorders: No HTN: No Hypercholesterolemia: Yes Kidney Stones: Yes Liver Disease: No Seizures: No Thyroid Disease: No - Surgical History Abdominal Surgery: No Appendectomy: No Cardiac Surgery: No Cholecystectomy: No Lung Surgery: No Neurologic Surgery: No Orthopedic Surgery: No - Suicide/Smoking/Psychosocial Hx Smoking Status: Yes Smoking History: Current every day smoker Have you smoked in the past 12 months: No Number of Cigarettes Smoked Daily: 0 If you are a former smoker, when did you quit?: cigars, 4 months ago Cigars Per Day: 5 Information on smoking cessation initiated: No 'Breaking Loose' booklet given: 03/13/18 Hx Alcohol Use: No Drug/Substance Use Hx: No Substance Use Type: None Hx Substance Use Treatment: No Review of Systems - Review of Systems Comments:: 04/06/18 18:24 GENERAL/CONSTITUTIONAL: No fever or chills. No weakness. HEAD, EYES, EARS, NOSE AND THROAT: No change in vision. No sore throat. CARDIOVASCULAR: No chest pain or shortness of breath RESPIRATORY: No cough, wheezing, or hemoptysis. GASTROINTESTINAL: No nausea, vomiting, diarrhea or constipation. GENITOURINARY: No dysuria, frequency, or change in urination. MUSCULOSKELETAL: No joint or muscle swelling or pain. No neck or back pain. + right foot pain SKIN: No rash NEUROLOGIC: No headache, vertigo, loss of consciousness, or change in strength/ sensation. ENDOCRINE: No increased thirst. No abnormal weight change HEMATOLOGIC/LYMPHATIC: No anemia, easy bleeding, or history of blood clots. ALLERGIC/IMMUNOLOGIC: No hives or skin allergy. *Physical Exam - Vital Signs Last Vital Signs Temp Pulse Resp BP Pulse Ox 99.2 F 91 H 18 133/82 96 04/06/18 17:02 04/06/18 17:02 04/06/18 17:02 04/06/18 17:02 04/06/18 17:02 - Physical Exam Comments: 04/06/18 18:25 GENERAL: Awake, alert, and fully oriented, in no acute distress HEAD: No signs of trauma, normocephalic, atraumatic EYES: PERRLA, EOMI, sclera anicteric, conjunctiva clear ENT: Auricles normal inspection, hearing grossly normal, nares patent, oropharynx clear without exudates. Moist mucosa NECK: Normal ROM, supple, no lymphadenopathy, JVD, or masses LUNGS: No distress, speaks full sentences, clear to auscultation bilaterally HEART: Regular rate and rhythm, normal S1 and S2, no murmurs, rubs or gallops, peripheral pulses normal and equal bilaterally. ABDOMEN: Soft, nontender, normoactive bowel sounds. No guarding, no rebound. No masses R FOOT: No dorsalis pedis or posterior tibialis pulses, pale, not cold. + femoral pulse NEUROLOGICAL: Cranial nerves II through XII grossly intact. Normal speech, normal gait, no focal sensorimotor deficits SKIN: Warm, Dry, normal turgor, no rashes or lesions noted. ED Treatment Course - LABORATORY CBC & Chemistry Diagram: 04/06/18 17:30 04/06/18 17:30 - ADDITIONAL ORDERS Additional order review: 04/06/18 17:30 RBC 5.40 MCV 89.9 MCHC 33.6 RDW 17.4 H MPV 7.4 L - RADIOLOGY Radiology Studies Ordered: Category Date Time Status CXRPORT [CHEST X-RAY PORTABLE*] [RAD] Stat Radiology 04/06/18 17:21 Completed Medical Decision Making - Medical Decision Making 04/06/18 18:25 Patient is 57M sent to the ED today by Dr Almodovar for an arterial occlusion in his leg. Vitals normal and stable. Dr Almodovar contacted, asks for pre-op labs before going to the OR. No further imaging needed at this time. Will evaluate with cbc, cmp, ekg, pt/inr, cxr. EKG shows normal sinus rhythm with rate of 87. No st elevations/depressions. Normal axis. Normal intervals. No significant t wave abnormalities. 04/06/18 18:27 CXR clear. CBC normal. PT/INR pending. Dr Almodovar accepted patient to OR. *DC/Admit/Observation/Transfer Diagnosis at time of Disposition: Arterial occlusion - Discharge Dispostion Condition at time of disposition: Stable Decision to Admit order: Yes - Referrals - Patient Instructions - Post Discharge Activity
[2018-04-06 18:27] LABS: ALBUMIN 3.7 g/dl (3.4-5.0); ALK PHOS 86 U/L (45-117); ANION GAP 8 MMOL/L (8-16); BILIRUBIN,TOTAL 0.1 mg/dL (0.2-1); BLOOD UREA NITROGEN 19 mg/dL (7-18); CALCIUM 9.5 mg/dL (8.5-10.1); CHLORIDE 107 mmol/L (98-107); CO2 25 mmol/L (21-32); GLUCOSE,RANDOM 87 mg/dL (74-106); POTASSIUM 4.4 mmol/L (3.5-5.1); SGOT/AST 20 U/L (15-37); SGPT/ALT 27 U/L (13-61); SODIUM 140 mmol/L (136-145); TOT PROT 7.7 g/dl (6.4-8.2)
[2018-04-06 18:40] LABS: INR 0.97 (0.83-1.09); PROTHROMBIN TIME (PATIENT) 11.5 SEC (9.7-13.0)
[2018-04-06] MEDS ORDERED: ONDANSETRON 4 MG/2 ML VIAL IVPUSH PRN ×2 (19:17→21:03)
[2018-04-06] MEDS ORDERED: MIDAZOLAM HCL 2 MG/2 ML SINGLE DOSE VIAL ONE ×2 (19:29)
[2018-04-06] MEDS ORDERED: ceFAZolin SODIUM 1 GM VIAL ONE (19:31)
[2018-04-06] MEDS ORDERED: LIDOCAINE HCL 1%, 10 MG/ML (20ML VIAL) ONE (19:36)
[2018-04-06] MEDS ORDERED: ceFAZolin SODIUM 1 GM VIAL IVPB ONE (19:37)
[2018-04-06] MEDS ORDERED: CLINDAMYCIN PHOSPHATE 600 MG/4 ML VIAL IVPB ONE (19:37)
[2018-04-06] MEDS ORDERED: LIDOCAINE HCL 1%, 10 MG/ML (20ML VIAL) NR ONE (19:42)
[2018-04-06] MEDS ORDERED: HEPARIN NA (PORCINE) 5,000 UNITS/ML 1ML VIAL SQ ONE (19:45)
[2018-04-06] MEDS ORDERED: POVIDONE-IODINE OINTMENT 10% - 28.4 GM TUBE ONE (20:30)
[2018-04-06] MEDS ORDERED: POVIDONE-IODINE OINTMENT 10% - 28.4 GM TUBE TP ONE (20:30)
--- NOTE | 2018-04-06 20:36 | OP ---
Operative Note - Note: Operative Date: 04/06/18 Pre-Operative Diagnosis: Thrombosed right femoral tibial bypass Operation: Open thrombectomy femoral bypass and angiogram Findings: Thrombosed graft. Patent outflow to anterior tibial artery and dorsalis pedis runoff Post-Operative Diagnosis: Same as Pre-op Surgeon: Carlos Stoner Line Assembler: Victor M Oconnor Anesthesiologist/MOLDER PUNCH: Karen Williamson Anesthesia: Fractional Specimens Removed: clot from graft Estimated Blood Loss (mls): 100
--- NOTE | 2018-04-06 20:43 | SURG ---
Surgery Eap Specialist Note Eap Specialist: Victor M Oconnor PA-C Date of Service: 04/06/18 Diagnosis: Thrombosed right lower extremity femoral-tibial bypass graft Procedure: Right lower extremity open thrombectomy of femoral bypass and angiogram I was present for the entirety of the operative procedure. For further detail, please refer to operative report. Visit type - Case Type Case Type: ED Admission - Emergency Emergency Visit: Yes Care time: The patient presented to the Emergency Department on the above date and was hospitalized for further evaluation of their emergent condition. - New patient This patient is new to me today: Yes Date on this admission: 04/06/18
[2018-04-06] MEDS ORDERED: HEPARIN NA (PORCINE) 5,000 UNITS/ML 1ML VIAL IVPUSH PRN ×2 (20:51)
[2018-04-06] MEDS ORDERED: ACETAMINOPHEN 325 MG TABLET (FP) PO PRN (21:09)
[2018-04-06] MEDS ORDERED: oxyCODONE HCL 5 MG TABLET PO PRN (21:09)
[2018-04-06] MEDS ORDERED: HEPARIN INFUSION - 25,000 UNITS/500 ML INFUS.BAG IVPB ONE (21:13)
[2018-04-06] MEDS: HEPARIN - 25,000 UNIT in SODIUM CHLORIDE 495 ML IV SCH ×2 (21:15)
[2018-04-06] MEDS: ATORVASTATIN CA 10 MG TABLET (FP) PO SCH (23:16)
[2018-04-06] MEDS: GABAPENTIN 300 MG CAPSULE (FP) PO SCH (23:16)
[2018-04-07] MEDS: GABAPENTIN 300 MG CAPSULE (FP) PO SCH ×3 (06:54→21:11)
--- NOTE | 2018-04-07 11:07 | PN ---
Progress Note (short form) - Note Progress Note: vascular Surgery: Pt seen and examined this am. No increase in pain/numbness to his right foot from his baseline prior to surgery. Has a history of chronic numbness and pain to his extremity/no difficulty with ambulating. Vital Signs Period Temp Pulse Resp BP Sys/White Pulse Ox Last 24 Hr 97.8 F-99.2 F 78-91 16-20 114-135/56-82 96-99 GEn: A&0x3, NAD Right leg: foot warm with palpable DP/PT pulse. Right leg dressing c/d/i 5/5 dorsi/plantar flexion b/l CBC, BMP 04/06/18 17:30 04/06/18 17:30 Laboratory Tests 04/07/18 03:15 PTT (Actin FS) 52.2 H A/P: 57 yo male s/p Open thrombectomy femoral bypass and angiogram Foot warm with palpable pulse Continue IV Heparin Pain medications as needed Npo after midnight for OR in the am, right lower ext bypass Continue IV heparin drip and titrate as per protocol
--- NOTE | 2018-04-07 12:52 | EKG ---
Test Reason : Blood Pressure : / mmHG Vent. Rate : 087 BPM Atrial Rate : 087 BPM P-R Int : 126 ms QRS Dur : 090 ms QT Int : 350 ms P-R-T Axes : 070 064 032 degrees QTc Int : 421 ms NORMAL SINUS RHYTHM POSSIBLE LEFT ATRIAL ENLARGEMENT BORDERLINE ECG Confirmed by MD JESSICA, FALLON ([id number]) on 04/07/2018 12:52:24 PM Referred By: Confirmed By:FALLON LOPEZ MD
--- NOTE | 2018-04-07 13:12 | PN ---
Progress Note (short form) - Note Progress Note: Anesthesia postop note 57 y/o M s/p MAC for suction thrombectomy, right LE anngiogram POD#1, vss, aaox3, no complaints. No anesthesia complications.
[2018-04-07] MEDS: ATORVASTATIN CA 10 MG TABLET (FP) PO SCH (21:11)
[2018-04-08] MEDS: GABAPENTIN 300 MG CAPSULE (FP) PO SCH ×2 (06:05→15:36)
[2018-04-08 06:37] LABS: HEMATOCRIT 43.4 % (35.4-49); HEMOGLOBIN 14.1 GM/dL (11.7-16.9); MCH 29.4 pg (25.7-33.7); MCHC 32.5 g/dl (32.0-35.9); MEAN CELL VOLUME 90.4 fl (80-96); MEAN PLT VOLUME 7.3 fl (7.5-11.1); PLATELET COUNT 286 K/MM3 (134-434); RDW 17.1 % (11.9-15.9); WHITE BLOOD COUNT 9.6 K/mm3 (4.0-10.0)
--- NOTE | 2018-04-08 09:11 | PN ---
Progress Note (short form) - Note Progress Note: POD 2 Pt seen and examined. Doing well this morning, anticipating surgery later today. Denies any leg pain or numbness, has baseline numbness. Denies cp/sob, n/ v/d, calf pain/edema. Vital Signs Temp 97.7 F 04/08/18 06:44 Pulse 72 04/08/18 06:44 Resp 20 04/08/18 06:44 BP 109/77 04/08/18 06:44 Pulse Ox 96 04/07/18 21:00 Intake & Output 04/07/18 04/07/18 04/08/18 11:59 23:59 11:59 Intake Total 160 770 120 Output Total 350 500 Balance -190 270 120 Intake: IV 160 320 120 Heparin - 25,000 Unit In 160 320 120 Normal Saline - 495 ml @ 1,000 UNIT/HR 20 mls/hr IV TITR GERALD Rx#: [id number] Oral 450 Output: Urine 350 500 Void 350 500 Other: Voiding Method Toilet Toilet Bowel Movement No CBC, BMP 04/08/18 05:30 04/06/18 17:30 Gen: awake, alert, nad Resp: cta b/l CV: rrr, s1s2 Ext: R foot warm, well perfused, some edema of r great toe (likely due to reperfusion), no ulcerations, L foot warm, no ulcerations noted. Vasc: Weakly palpable dp on R foot, triphasic PT/DP with doppler, L foot dp/pt triphasic A/P: 57 y/o M w/ PMHx hld, extensive vascular history, s/p aortobifemoral bypass in 2011, R femoral-tibial bypass in October 2017 on therapeutic lovenox, s/p multiple thrombectomies of bypass, most recently in 03/12, now POD 2 from Open thrombectomy femoral bypass and angiogram. Patent graft this AM. -Continue Heparin drip per attending -NPO after breakfast per attending -OR this afternoon
[2018-04-08] MEDS ORDERED: ONDANSETRON 4 MG/2 ML VIAL IVPUSH PRN ×3 (15:51→22:10)
[2018-04-08] MEDS ORDERED: PROMETHAZINE HCL 25 MG/1 ML VIAL IVPUSH PRN (15:51)
[2018-04-08] MEDS ORDERED: LACTATED RINGERS SOLUTION 1,000 ML IV SCH ×2 (16:00→22:10)
[2018-04-08] MEDS ORDERED: VANCOMYCIN 1 GRAM (PRE-DOCKED) 1,000 MG/250 ML BAG IVPB ONE (16:00)
[2018-04-08] MEDS ORDERED: VANCOMYCIN 1,000 MG VIAL (RESTRICTED TO ID ONLY) ONE ×2 (16:12→16:13)
[2018-04-08] MEDS ORDERED: VANCOMYCIN 1,000 MG VIAL (RESTRICTED TO ID ONLY) IVPB ONE (16:13)
[2018-04-08] MEDS ORDERED: PAPAVERINE HCL 30 MG/1 ML 10 ML VIAL NR ONE ×2 (16:13→18:50)
[2018-04-08] MEDS ORDERED: ROCURONIUM BROMIDE 50 MG/5 ML VIAL ONE ×3 (16:21→18:48)
[2018-04-08] MEDS ORDERED: PROPOFOL 20 ML ONE (16:21)
[2018-04-08] MEDS ORDERED: DEXAMETHASONE SOD PHOSPHATE 4 MG/1 ML VIAL ONE (16:37)
[2018-04-08] MEDS ORDERED: POVIDONE-IODINE OINTMENT 10% - 28.4 GM TUBE ONE (18:19)
[2018-04-08] MEDS ORDERED: HEPARIN NA (PORCINE) 5,000 UNITS/ML 1ML VIAL ONE ×2 (18:50→20:33)
[2018-04-08] MEDS ORDERED: GLYCOPYRROLATE 0.2 MG/1 ML VIAL ONE (20:31)
[2018-04-08] MEDS ORDERED: NEOSTIGMINE METHYLSULFATE 0.5 MG/ML - 10 ML MDV ONE (20:33)
--- NOTE | 2018-04-08 21:06 | OP ---
Operative Note - Note: Operative Date: 04/08/18 Pre-Operative Diagnosis: Right femoral artery occlusion Operation: Right ilio-tibial bypass with non-reversed saphenous vein. Findings: Right iliac limb graft encased in scar tissue. C[employer] LEAD CONSULTANT 2 mm GSV patent 3-5 mm Post-Operative Diagnosis: Same as Pre-op Surgeon: Carlos Stoner Grease Maker: Leah Robertson Anesthesiologist/MILLER HEAD: Alec Mcdaniels Anesthesia: General Estimated Blood Loss (mls): 300
[2018-04-08] MEDS ORDERED: CHLORHEXIDINE GLUCONATE 4% CLEANSER FOR DECOLONIZATION TP SCH (22:00)
[2018-04-08] MEDS ORDERED: HEPARIN NA (PORCINE) 5,000 UNITS/ML 1ML VIAL IVPUSH PRN ×2 (22:10)
[2018-04-08] MEDS ORDERED: PROMETHAZINE HCL 25 MG/1 ML VIAL IVPB PRN (22:10)
[2018-04-08] MEDS ORDERED: ENOXAPARIN NA (PORCINE) 30 MG/0.3 ML DISP.SYRIN SQ SCH (22:10)
[2018-04-08] MEDS ORDERED: ACETAMINOPHEN 325 MG TABLET (FP) PO PRN (22:10)
[2018-04-09] MEDS: oxyCODONE HCL 5 MG TABLET PO PRN ×3 (00:15→23:21)
[2018-04-09] MEDS: MUPIROCIN 2% TOPICAL OINTMENT FOR DECOLONIZATION NS SCH ×2 (00:16→12:00)
--- NOTE | 2018-04-09 00:19 | CONSULT ---
Consultation: REQUESTING PROVIDER: Dr. Stoner CONSULT REQUEST: We have been asked to medically evaluate this patient for s/p Right ilio-tibial bypass with non-reversed saphenous vein. HISTORY OF PRESENT ILLNESS: Patient is a 57 year old male with a PMHx of HLD, PAD, aortobifemoral bypass in 2011 and multiple thrombectomy procedures who presented 04/06/18 to the ED for increasing right foot pain. Patient was scheduled for RLE bypass in April with Dr. Stoner but was advised to come to the ED if any new symptoms occurred prior to surgery. Patient was seen by Dr. Stoner one week ago in his office with palpable DP pulses. However, in the ED patient was found to have absent RLE Femoral/PT/DP pulses via handheld doppler, likely clotting of the graft once again, despite daily Lovenox injections. Patient was sent to the OR (04/06/18) for thrombectomy and placed on Heparin drip. Patient now POD #0 s/p right ilio-tibial bypass with non-reversed saphenous vein with no complications and EBL of 300mls. Patient reports some pain in his leg but adequately controlled with pain medications. Otherwise, patient denies any chest pain, palpitations, shortness of breath, or LE swelling, weakness or parasthesias, fever, chills, nausea, vomiting, abdominal pain, diarrhea. PMHx: HLD PAD PSHx: aortobifemoral bypass in 2011 and multiple thrombectomy procedures Social Hx: Lives with . Works for [employer] Quit smoking one year ago. Previous 1PPD for 40 years. Denies alcohol or drug use. Allergies: Penicillins REVIEW OF SYSTEMS: CONSTITUTIONAL: Absent: fever, chills, diaphoresis, generalized weakness, malaise, loss of appetite, weight change HEENT: Absent: rhinorrhea, nasal congestion, throat pain, throat swelling, difficulty swallowing, mouth swelling, ear pain, eye pain, visual changes CARDIOVASCULAR: Absent: chest pain, syncope, palpitations, irregular heart rate, lightheadedness , peripheral edema RESPIRATORY: Absent: cough, shortness of breath, dyspnea with exertion, orthopnea, wheezing, stridor, hemoptysis GASTROINTESTINAL: Absent: abdominal pain, abdominal distension, nausea, vomiting, diarrhea, constipation, melena, hematochezia GENITOURINARY: Absent: dysuria, frequency, urgency, hesitancy, hematuria, flank pain, genital pain MUSCULOSKELETAL: RLE pain Absent: myalgia, arthralgia, joint swelling, back pain, neck pain SKIN: Absent: rash, itching, pallor HEMATOLOGIC/IMMUNOLOGIC: Absent: easy bleeding, easy bruising, lymphadenopathy, frequent infections ENDOCRINE: Absent: unexplained weight gain, unexplained weight loss, heat intolerance, cold intolerance NEUROLOGIC: Absent: headache, focal weakness or paresthesias, dizziness, unsteady gait, seizure, mental status changes, bladder or bowel incontinence PSYCHIATRIC: Absent: anxiety, depression, suicidal or homicidal ideation, hallucinations. PHYSICAL EXAMINATION Vital Signs - 24 hr 04/08/18 04/08/18 04/08/18 06:44 09:00 10:00 Temperature 97.7 F 97.6 F Pulse Rate 72 78 Respiratory 20 18 Rate Blood Pressure 109/77 114/73 O2 Sat by Pulse 96 Oximetry (%) 04/08/18 04/08/18 04/08/18 10:05 15:14 21:18 Temperature 97.9 F 98 F 98.6 F Pulse Rate 75 77 86 Respiratory 20 19 18 Rate Blood Pressure 118/64 128/90 164/87 O2 Sat by Pulse 95 Oximetry (%) GENERAL: Awake, alert, and fully oriented, in no acute distress. HEAD: Normal with no signs of trauma. EYES: Pupils equal, round and reactive to light, extraocular movements intact, sclera anicteric, conjunctiva clear. No lid lag. EARS, NOSE, THROAT: Oropharynx clear without exudates. Moist mucous membranes. NECK: Normal range of motion, supple without lymphadenopathy, JVD, or masses. LUNGS: Breath sounds equal, clear to auscultation bilaterally. No wheezes, and no crackles. No accessory muscle use. HEART: Regular rate and rhythm, normal S1 and S2 without murmur, rub or gallop. ABDOMEN: Soft, nontender, not distended, normoactive bowel sounds, no guarding, no rebound, no masses. MUSCULOSKELETAL: No CVA tenderness. UPPER EXTREMITIES: No peripheral edema. LOWER EXTREMITIES: 2+ pulses, warm, well-perfused. No calf tenderness. No peripheral edema. RLE surgical wound dressing. NEUROLOGICAL: Cranial nerves II-XII intact. Normal speech. PSYCHIATRIC: Cooperative. Good eye contact. Appropriate mood and affect. SKIN: Warm, dry, normal turgor, no rashes or lesions noted. Laboratory Results - last 24 hr 04/07/18 04/08/18 04/08/18 11:50 05:30 05:30 WBC 9.6 RBC 4.80 Hgb 14.1 Hct 43.4 MCV 90.4 MCH 29.4 MCHC 32.5 RDW 17.1 H Plt Count 286 D MPV 7.3 L PTT (Actin FS) 34.3 Blood Type A POSITIVE Antibody Screen Negative Crossmatch See Detail Active Medications Generic Name Dose Route Start Last Admin Trade Name Freq PRN Reason Stop Dose Admin Acetaminophen 325 mg 04/08/18 22:10 Tylenol - PO Q4H PRN PAIN LEVEL 1-5 Atorvastatin Calcium 10 mg 04/09/18 22:00 Lipitor - PO HS [facility] Chlorhexidine Gluconate 1 applic 04/08/18 22:00 Hibiclens For Decolonization - TP HS [facility] Enoxaparin Sodium 30 mg 04/08/18 22:10 04/08/18 23:03 Lovenox - SQ 30 mg BID GERALD Administration Fentanyl 50 mcg 04/08/18 22:10 Sublimaze Injection - IVPUSH 04/09/18 03:00 [id number] PRN PAIN-PACU ORDER X 4 DOSES ONLY Gabapentin 300 mg 04/09/18 06:00 Neurontin - PO TID [facility] Lactated Ringer's 1,000 mls @ 125 mls/hr 04/08/18 22:10 Lactated Ringers Solution IV ASDIR [facility] Mupirocin 1 applic 04/08/18 22:00 Bactroban Ointment (For Decolonization) - NS 04/13/18 21:59 BID GERALD Ondansetron HCl 4 mg 04/08/18 22:10 Zofran Injection IVPUSH Q6H PRN NAUSEA AND/OR VOMITING Ondansetron HCl 4 mg 04/08/18 22:10 Zofran Injection IVPUSH Q6H PRN NAUSEA AND/OR VOMITING Oxycodone HCl 5 mg 04/08/18 22:10 Roxicodone - PO Q4H PRN PAIN LEVEL 1-5 Promethazine HCl 12.5 mg 04/08/18 22:10 Phenergan Injection - IVPB Q6H PRN NAUSEA-FOR RESCUE AFTER 15 MIN ASSESSMENT/PLAN: Patient is a 57 year old male who presented to the hospital for worsening RLE pain and was found to have absent RLE femoral/PT/DP via handheld doppler. SURGERY #S/P Right Ilio-Tibial Bypass with Non-Reversed Saphenous Vein -POD #0 with no complications and EBL of 300mls -Pain control with Tylenol PO, Oxycodone PRN, Neurontin 300mg TID -Continue DVT prophylaxis with Lovenox 30mg SQ BID -Frequent Doppler checks for pulses -IV Fluids with LR @125mls/hr -Monitor UOP VASCULAR #PAD -Continue Lovenox 30mg BID #HLD -Continue Lipitor 10mg HS F/E/N -LR @125mls/hr -Electrolytes wnl -Regular diet Prophylaxis -Lovenox 30mg BID for DVT -No GI required Disposition -Full code -Overnight monitoring. Will likely be transferred to floors tomorrow Dispo: We will continue to follow the patient. Thank you for this consultative opportunity. Sheryl Caban [id number] Visit type - Emergency Visit Emergency Visit: Yes ED Registration Date: 04/06/18 Care time: The patient presented to the Emergency Department on the above date and was hospitalized for further evaluation of their emergent condition. - New Patient This patient is new to me today: Yes Date on this admission: 04/08/18 - Critical Care Critical Care patient: Yes Total Critical Care Time (in minutes): 45 Critical Care Statement: The care of this patient involved high complexity decision making to prevent further life threatening deterioration of the patient 's condition and/or to evaluate & treat vital organ system(s) failure or risk of failure.
[2018-04-09] MEDS: GABAPENTIN 300 MG CAPSULE (FP) PO SCH ×3 (05:14→21:05)
[2018-04-09 06:24] LABS: HEMOGLOBIN 14.2 GM/dL (11.7-16.9); MCH 29.5 pg (25.7-33.7); MCHC 32.2 g/dl (32.0-35.9); MEAN CELL VOLUME 91.7 fl (80-96); MEAN PLT VOLUME 7.6 fl (7.5-11.1); PLATELET COUNT 263 K/MM3 (134-434); RBC 4.79 M/mm3 (4.00-5.60); RDW 16.8 % (11.9-15.9); WHITE BLOOD COUNT 13.2 K/mm3 (4.0-10.0)
--- NOTE | 2018-04-09 07:56 | PN ---
Progress Note (short form) - Note Progress Note: POD #1 Alert. Doing well. C/o incisional pain. Adequate pain management with meds ordered. Hasn't been oob yet. States his leg feels a lot better. Has peripheral neuropathy (baseline for him). Denies n/v/f/c, CP or SOB. Last Vital Signs Temp Pulse Resp BP Pulse Ox 98.2 F 15 L 83 H 134/83 97 04/09/18 02:00 04/09/18 04:00 04/09/18 04:00 04/09/18 04:00 04/09/18 00:22 CBC, BMP 04/09/18 05:30 04/06/18 17:30 Gen: nad RLE: groin incision c/d/i. no hematoma. extremity incision c/d/i. no palpable hematoma. foot is warm. palpable DP and PT. No pain with movement of toes. Problem List - Problems (1) Occlusion of artery of leg Assessment/Plan: POD #1 s/p Right ilio-tibial bypass with non-reversed saphenous vein. Doing well. Dressing left in place at it's only been 10hrs since surgery. Incentive spirometer Can dc pham once patient oob to chair Pain management prn Lovenox 30mg SQ BID Gabapentin Possible downgrade to floor Above plan discussed with Dr. Stoner and agrees. Code(s): I70.209 - UNSP ATHSCL [place] ARTERIES OF EXTREMITIES, UNSP EXTREMITY
--- NOTE | 2018-04-09 08:11 | SURG ---
Surgery Automotive Design Drafter Note Automotive Design Drafter: Leah Robertson PA-C Date of Service: 04/08/18 Diagnosis: Right femoral artery occlusion Procedure: Right ilio-tibial bypass with non-reversed saphenous vein. I was present for the entirety of the operative procedure. For further detail, please refer to operative report. Visit type - Case Type Case Type: ED Admission - Emergency Emergency Visit: Yes ED Registration Date: 04/06/18 Care time: The patient presented to the Emergency Department on the above date and was hospitalized for further evaluation of their emergent condition. - New patient This patient is new to me today: Yes Date on this admission: 04/09/18
[2018-04-09] MEDS ORDERED: ENOXAPARIN NA (PORCINE) 30 MG/0.3 ML DISP.SYRIN SQ ONE (10:00)
[2018-04-09] MEDS ORDERED: PT OWN MED DRAWER 7, Y5N ONE ×2 (10:33→17:14)
[2018-04-09] MEDS ORDERED: ACETAMINOPHEN 325 MG TABLET (FP) PO ONE (12:15)
--- NOTE | 2018-04-09 12:30 | PN ---
Physical Exam: SUBJECTIVE: Patient seen and examined at bedside. doing well. some pain but controlled. denies any fever, or worsening/new numbness tingling. OBJECTIVE: Vital Signs Period Temp Pulse Resp BP Sys/White Pulse Ox Last 24 Hr 98 F-98.6 F 15-96 10-86 123-164/74-90 94-99 GENERAL: AOX3 NAD HEAD: Normal with no signs of trauma. EYES: Pupils equal, round and reactive to light, extraocular movements intact, sclera anicteric, conjunctiva clear. No lid lag. EARS, NOSE, THROAT: Oropharynx clear without exudates. MMM NECK: Normal range of motion, supple without lymphadenopathy, JVD, or masses. LUNGS: CTAB. No wheezes, and no crackles. No accessory muscle use. HEART: RRR, normal S1 and S2 without murmur, rub or gallop. ABDOMEN: Soft, NTND +BS, no guarding, no rebound, no masses. MUSCULOSKELETAL: No CVA tenderness. UPPER EXTREMITIES: No peripheral edema. LOWER EXTREMITIES: 2+ pulses, warm, well-perfused. No calf tenderness. No peripheral edema. RLE surgical wound dressing. + pulses w/ doppler. groin incision c/d/i. no hematoma. extremity incision c/d/i. no palpable hematoma NEUROLOGICAL: Cranial nerves II-XII intact. Normal speech. PSYCHIATRIC: Cooperative. Good eye contact. Appropriate mood and affect. SKIN: Warm, dry, normal turgor, no rashes or lesions noted. Laboratory Results - last 24 hr 04/07/18 04/09/18 04/09/18 11:50 05:30 05:30 WBC 13.2 H RBC 4.79 Hgb 14.2 Hct 44.0 MCV 91.7 MCH 29.5 MCHC 32.2 RDW 16.8 H Plt Count 263 MPV 7.6 PTT (Actin FS) 25.6 Crossmatch See Detail Active Medications Generic Name Dose Route Start Last Admin Trade Name Freq PRN Reason Stop Dose Admin Acetaminophen 325 mg 04/08/18 22:10 04/09/18 10:40 Tylenol - PO 325 mg Q4H PRN Administration PAIN LEVEL 1-5 Acetaminophen 650 mg 04/09/18 12:15 Tylenol - PO 04/09/18 12:16 ONCE ONE Atorvastatin Calcium 10 mg 04/09/18 22:00 Lipitor - PO HS [facility] Chlorhexidine Gluconate 1 applic 04/08/18 22:00 04/09/18 00:16 Hibiclens For Decolonization - TP Not Given HS GERALD Enoxaparin Sodium 80 mg 04/09/18 22:00 Lovenox - SQ BID GERALD Gabapentin 300 mg 04/09/18 06:00 04/09/18 05:14 Neurontin - PO 300 mg TID GERALD Administration Mupirocin 1 applic 04/08/18 22:00 04/09/18 00:16 Bactroban Ointment (For Decolonization) - NS 04/13/18 21:59 Not Given BID GERALD Ondansetron HCl 4 mg 04/08/18 22:10 Zofran Injection IVPUSH Q6H PRN NAUSEA AND/OR VOMITING Ondansetron HCl 4 mg 04/08/18 22:10 Zofran Injection IVPUSH Q6H PRN NAUSEA AND/OR VOMITING Oxycodone HCl 5 mg 04/08/18 22:10 04/09/18 10:39 Roxicodone - PO 5 mg Q4H PRN Administration PAIN LEVEL 1-5 Promethazine HCl 12.5 mg 04/08/18 22:10 Phenergan Injection - IVPB Q6H PRN NAUSEA-FOR RESCUE AFTER 15 MIN ASSESSMENT/PLAN: Patient is a 57 year old male who presented to the hospital for worsening RLE pain and was found to have absent RLE femoral/PT/DP via handheld doppler. SURGERY #S/P Right Ilio-Tibial Bypass with Non-Reversed Saphenous Vein -POD #1 with no complications and EBL of 300mls -Pain control with Tylenol PO, Oxycodone PRN, Neurontin 300mg TID -Continue DVT prophylaxis with Lovenox 30mg SQ BID -Can increase his Lovenox to 80mg SQ BID this evening. -Frequent Doppler checks for pulses -IV Fluids with LR @125mls/hr -Monitor UOP, 1600cc w/ vero -gustavo pham once patient oob to chair VASCULAR #PAD -Continue Lovenox 30mg BID -Can increase his Lovenox to 80mg SQ BID this evening. #HLD -Continue Lipitor 10mg HS HEME -H/H stable -would recommend pt f/u w/ a access assoc to w/u his hx of frequent thrombosis requiring thrombectomy F/E/N -LR @125mls/hr -Electrolytes wnl -Regular diet Prophylaxis -Lovenox 30mg BID for DVT, Can increase his Lovenox to 80mg SQ BID this evening. -No GI required Disposition -Full code -pt is stable and ready for transfer to med/surg. We will sign off. Further care per primary team/PCP. Thank you for this consult opportunity Visit type - Emergency Visit Emergency Visit: Yes ED Registration Date: 04/06/18 Care time: The patient presented to the Emergency Department on the above date and was hospitalized for further evaluation of their emergent condition. - New Patient This patient is new to me today: Yes Date on this admission: 04/09/18 - Critical Care Critical Care patient: Yes Total Critical Care Time (in minutes): 35 Critical Care Statement: The care of this patient involved high complexity decision making to prevent further life threatening deterioration of the patient 's condition and/or to evaluate & treat vital organ system(s) failure or risk of failure.
--- NOTE | 2018-04-09 12:31 | PN ---
Teaching Attending Note Name of Resident: Breezy Ramirez ATTENDING PHYSICIAN STATEMENT I saw and evaluated the patient. I reviewed the resident's note and discussed the case with the resident. I agree with the resident's findings and plan as documented. SUBJECTIVE: Patient seen and examined in the ICU. Awake and alert. Some discomfort at the surgical site. No CP or SOB. Intake & Output 04/06/18 04/07/18 04/08/18 04/09/18 23:59 23:59 23:59 23:59 Intake Total 204 000 4074 891.4 Output Total 379 424 2520 1600 Balance 10 80 1420 -708.6 Weight 178 lb Last Vital Signs Temp Pulse Resp BP Pulse Ox 98.6 F 15 L 86 H 128/78 97 04/09/18 10:00 04/09/18 10:00 04/09/18 10:00 04/09/18 10:00 04/09/18 00:22 Active Medications Acetaminophen (Tylenol -) 325 mg PO Q4H PRN PRN Reason: PAIN LEVEL 1-5 Last Admin: 04/09/18 10:40 Dose: 325 mg Atorvastatin Calcium (Lipitor -) 10 mg PO HS [facility] Chlorhexidine Gluconate (Hibiclens For Decolonization -) 1 applic TP HS [facility] Last Admin: 04/09/18 00:16 Dose: Not Given Enoxaparin Sodium (Lovenox -) 80 mg SQ BID [facility] Gabapentin (Neurontin -) 300 mg PO TID [facility] Last Admin: 04/09/18 05:14 Dose: 300 mg Mupirocin (Bactroban Ointment (For Decolonization) -) 1 applic NS BID [facility] Stop: 04/13/18 21:59 Last Admin: 04/09/18 00:16 Dose: Not Given Ondansetron HCl (Zofran Injection) 4 mg IVPUSH Q6H PRN PRN Reason: NAUSEA AND/OR VOMITING Ondansetron HCl (Zofran Injection) 4 mg IVPUSH Q6H PRN PRN Reason: NAUSEA AND/OR VOMITING Oxycodone HCl (Roxicodone -) 5 mg PO Q4H PRN PRN Reason: PAIN LEVEL 1-5 Last Admin: 04/09/18 10:39 Dose: 5 mg Promethazine HCl (Phenergan Injection -) 12.5 mg IVPB Q6H PRN PRN Reason: NAUSEA-FOR RESCUE AFTER 15 MIN GENERAL: Awake, alert, and fully oriented, in no acute distress. HEAD: Normal with no signs of trauma. EYES: sclera anicteric, conjunctiva clear. No lid lag. EARS, NOSE, THROAT: Oropharynx clear without exudates. Moist mucous membranes. NECK: Normal range of motion, supple without lymphadenopathy, JVD, or masses. LUNGS: Breath sounds equal, clear to auscultation bilaterally. No wheezes, and no crackles. No accessory muscle use. HEART: Regular rate and rhythm, normal S1 and S2 without murmur, rub or gallop. ABDOMEN: Soft, nontender, not distended, normoactive bowel sounds, no guarding, no rebound, no masses. MUSCULOSKELETAL: No CVA tenderness. UPPER EXTREMITIES: No peripheral edema. LOWER EXTREMITIES: 2+ pulses, warm, well-perfused. No calf tenderness. No peripheral edema. RLE surgical wound dressing intact. NEUROLOGICAL: non-focal PSYCHIATRIC: Cooperative. Good eye contact. Appropriate mood and affect. SKIN: Warm, dry, normal turgor, no rashes or lesions noted. Laboratory Results - last 24 hr 04/07/18 04/09/18 04/09/18 11:50 05:30 05:30 WBC 13.2 H RBC 4.79 Hgb 14.2 Hct 44.0 MCV 91.7 MCH 29.5 MCHC 32.2 RDW 16.8 H Plt Count 263 MPV 7.6 PTT (Actin FS) 25.6 Crossmatch See Detail ASSESSMENT/PLAN: POD #1: Right Ilio-Tibial Bypass with non-reversed saphenous vein due to Right femoral artery occlusion PAD HPL IVF Pain control Incentive Spirometry O2 as needed Follow H & H Monitor pulses OOB to chair Lovenox 80mg BID D/W vascular about anti-platelet Surgical floor Dr Felipe
[2018-04-09] MEDS ORDERED: oxyCODONE HCL 5 MG TABLET PO ONE (13:45)
[2018-04-09] MEDS: DOCUSATE SODIUM 100 MG CAPSULE (FP) PO SCH ×2 (14:03→21:05)
--- NOTE | 2018-04-09 14:24 | PN ---
Progress Note (short form) - Note Progress Note: ANESTHESIA POSTOP 57 YO MALE S/P R ILIAC/TIBIAL BYPASS WITH SAPHENOUS VEIN GRAFT PATIENT HAS SOME PAIN REFRACTORY TO TREATMENT. HE WAS OFFERED MORE PAIN MEDICINE AND DECLINED. HE REPORTS ADVIL WORKS. VSS, AFEBRILE CONTINUE CURRENT CARE. POTENTIALLY ADD NSAIDS FOR MULTIMODAL PAIN RELIEF WHEN DR. LEUNG OKS
[2018-04-09] MEDS: ASPIRIN 81 MG CHEWABLE TABLETS PO SCH (17:26)
[2018-04-09] MEDS ORDERED: oxyCODONE HCL 5 MG TABLET PO PRN (18:31)
[2018-04-09] MEDS ORDERED: PROMETHAZINE HCL 25 MG/1 ML VIAL IVPB PRN (18:31)
[2018-04-09] MEDS ORDERED: ONDANSETRON 4 MG/2 ML VIAL IVPUSH PRN ×2 (18:31)
[2018-04-09] MEDS: ATORVASTATIN CA 10 MG TABLET (FP) PO SCH (21:05)
[2018-04-09] MEDS: ENOXAPARIN NA (PORCINE) 80 MG/0.8 ML DISP.SYRIN SQ SCH (21:06)
--- NOTE | 2018-04-09 21:24 | OP ---
DATE OF OPERATION: 04/06/2018 SURGEON: Carlos Stoner MD ESTATE TAX EXAMINER: JUSTIN Nuñez PROCEDURE: Open thrombectomy of right femoral bypass with angiogram. PREOPERATIVE DIAGNOSIS: Thrombosed right femorotibial bypass. POSTOPERATIVE DIAGNOSIS: Thrombosed right femorotibial bypass. ANESTHESIA: Fractional. ANESTHESIOLOGIST: Karen Williamson DO OPERATIVE FINDINGS: The right femoral artery to anterior tibial artery bypass graft was thrombosed. Following thrombectomy, angiography revealed a patent distal anastomosis. OPERATIVE PROCEDURE: Following routine patient identification with site and side verification, intravenous sedation was established. The right leg was prepped with ChloraPrep. Timeout was performed. Next, 1% lidocaine was infiltrated subcutaneously over the femoral graft on the lateral aspect of the right lower thigh. Incision was made, and the graft was mobilized and secured with vessel loops. The patient was systemically heparinized. A transverse incision was made in the graft. A number 4 Johnnie catheter was passed proximally and withdrawn with removal of thrombus from the graft. The catheter was passed proximally until there was return of arterial inflow. A number 5 Johnnie catheter was also used to remove additional thrombus from the proximal iliac graft. The graft lumen was filled with heparin and saline solution, was occluded with a vascular clamp. Thrombectomy of the distal graft was then carried out with a number 4 Johnnie catheter. A number 3 Jonhnie catheter was passed through the distal anastomosis and withdrawn with removal of additional thrombus. A 7-Latvian sheath was placed into the graft, and angiography performed with dilute contrast. This showed a patent distal anastomosis with no retained thrombus and outflow into the anterior tibial artery. The graft was filled with heparin solution. The incision in the graft was then closed with a running suture of 6-0 Prolene. Clamps were removed, and there was good flow with a Doppler signal in the distal anterior tibial artery. Bleeding from the suture line was controlled with Surgicel. The wound was then closed with interrupted suture of 3-0 Vicryl and the skin with levy. Sterile dressing applied and the patient taken to the recovery room in stable condition. José SIERRA/[id number]
--- NOTE | 2018-04-09 21:43 | OP ---
DATE OF OPERATION: 04/08/2018 SURGEON: Carlos Stoner MD [address] REPORTER: JUSTIN Dos Santos PROCEDURE: Right iliotibial bypass with non-reverse saphenous vein. PREOPERATIVE DIAGNOSIS: Chronic peripheral arterial disease with recurrent thrombosis of right leg bypass graft. POSTOPERATIVE DIAGNOSIS: Chronic peripheral arterial disease with recurrent thrombosis of right leg bypass graft. ANESTHESIA: General. ANESTHESIOLOGIST: Alec Mcdaniels MD OPERATIVE FINDINGS: The right iliofemoral bypass graft was encased in scar tissue in the retroperitoneum. It was patent with some small amounts of thrombus within the lumen. The mid posterior tibial artery was patent with atherosclerotic changes. The lumen measured approximately 2 mm with a dilator. The greater saphenous vein was of adequate quality for bypass graft with a diameter between 3 and 4 mm. OPERATIVE PROCEDURE: Following routine patient identification with side and site verification, general anesthesia was induced. Raymundo catheter was placed. The right leg, groin, and abdomen were prepped with ChloraPrep. Timeout was performed. An incision was made in the right lower quadrant above the inguinal crease from the lateral aspect of the pubis to the anterior iliac crest. Subcutaneous tissues were divided with cautery. The muscle fascia and underlying muscles were divided with cautery. The retroperitoneal space was entered, and the peritoneum was reflected superiorly. Pulse was palpated in the arterial graft, and this was then exposed with careful dissection. Bleeding from adjacent veins was controlled with suture ligature of 5-0 Prolene. It was not possible to encircle the graft due to the scar tissue, but enough dissection on both sides would allow for placement of vascular clamps. The long saphenous vein was then exposed through an incision from the groin to the ankle. The vein had been mapped preoperatively with duplex imaging. The vein was mobilized from its bed with ligation of all side branches. It was cannulated distally and then distended with heparin and papaverine solution throughout the procedure. The vein was kept moist with gauze moistened with heparin solution. A tunnel was then created under the inguinal ligament from the groin to the abdominal incision. This was marked with umbilical tape and dilated to allow easy passage of a finger. The muscle fascia was then exposed and incised with cautery in the upper calf. This was carried down through the attachment of the soleus muscle until the posterior tibial and neurovascular bundle was exposed. The artery was evaluated with a Doppler, and a signal was heard in the distal aspect of the exposed segment. This was mobilized and secured with vessel loops. Side branches of the artery were ligated and divided. The patient was systemically heparinized. The iliac graft was occluded proximally and distally with vessel loops and opened with a longitudinal incision. Scar tissue was freed from off the graft material and trimmed back to allow for anastomosis to the graft. The vein was then excised with ligatures at each end and distended with heparin solution. It was brought up into the abdominal wound in the non-reverse configuration and spatulated at the proximal end. An anastomosis between vein and graft was then accomplished with 5-0 Prolene. Prior to completion of the suture line, the artery was allowed to back bleed and flush and was filled with heparin solution. Suture line was completed, and clamps were removed. The vein filled to the first competent valve pair. The valves in the vein were then cut with a modified CEBALLOS valvulotome inserted from the distal end of the vein. There was excellent flow through the vein graft at the end of the procedure. The graft was allowed to distend and was marked to prevent twisting. It was placed back into its bed in the thigh. The posterior tibial artery was then occluded with Yasargil clips and opened on exposed surface with a 10-mm arteriotomy. The vein was checked for length and trimmed and spatulated. It was anastomosed to the side of the artery with running suture of 6-0 Prolene using a double-parachute technique. Prior to completion of the suture line, the artery was allowed to back bleed and flush. It was dilated with a Mauricio dilator during the procedure. Suture line was completed and all vessels released. There was good flow through the anastomosis with a strong Doppler signal distally and a return of a palpable posterior tibial pulse at the ankle. Surgicel was applied to the suture line to control any bleeding. When hemostasis was achieved, the wounds were closed using 0 PDS to approximate the abdominal wall fascia and running 3-0 Vicryl sutures in the leg. All wound incisions were closed with levy, and the patient was taken to the recovery room in stable condition. José [id number] CHERYLE
[2018-04-09] MEDS ORDERED: ATORVASTATIN CA 10 MG TABLET (FP) PO SCH (22:00)
[2018-04-09] MEDS ORDERED: ENOXAPARIN NA (PORCINE) 80 MG/0.8 ML DISP.SYRIN SQ SCH (22:00)
[2018-04-10] MEDS: GABAPENTIN 300 MG CAPSULE (FP) PO SCH ×4 (05:31→21:29)
[2018-04-10] MEDS ORDERED: PANTOPRAZOLE 20 MG TABLET (FP) PO ONE ×2 (07:15→09:14)
[2018-04-10] MEDS: ATORVASTATIN CA 10 MG TABLET (FP) PO SCH ×2 (08:00→21:29)
[2018-04-10 09:38] LABS: BASO % 0.3 % (0-2.0); EOS % 0.2 % (0-4.5); HEMATOCRIT 41.4 % (35.4-49); HEMOGLOBIN 13.5 GM/dL (11.7-16.9); LYMPH % 12.5 % (8-40); MCH 29.7 pg (25.7-33.7); MCHC 32.5 g/dl (32.0-35.9); MEAN CELL VOLUME 91.3 fl (80-96); MEAN PLT VOLUME 7.8 fl (7.5-11.1); MONO % 10.2 % (3.8-10.2); NEUT % 76.8 % (42.8-82.8); PLATELET COUNT 288 K/MM3 (134-434); RBC 4.53 M/mm3 (4.00-5.60); RDW 16.9 % (11.9-15.9)
[2018-04-10] MEDS: ASPIRIN 81 MG CHEWABLE TABLETS PO SCH (09:49)
[2018-04-10] MEDS: ENOXAPARIN NA (PORCINE) 80 MG/0.8 ML DISP.SYRIN SQ SCH ×2 (09:49→21:29)
[2018-04-10] MEDS: DOCUSATE SODIUM 100 MG CAPSULE (FP) PO SCH ×2 (09:49→21:29)
--- NOTE | 2018-04-10 11:48 | PN ---
Progress Note (short form) - Note Progress Note: surgery POD # 4 Right ilio-tibial bypass with non-reversed saphenous vein. Patient seen and examined at bedside. Patient states he has incisional pain but denies and LE pain at rest. He is tolerating his diet and voiding without restriction. He c /o some GERD which he has at baseline. He denies any CP, SOB, N/V fever or chills. Vital Signs Temp 98.9 F 04/10/18 10:00 Pulse 115 H 04/10/18 10:00 Resp 20 04/10/18 10:00 BP 137/75 04/10/18 10:00 Pulse Ox 99 04/09/18 21:00 Intake & Output 04/09/18 04/09/18 04/10/18 11:59 23:59 11:59 Intake Total 891.4 660 440 Output Total 1600 4030 600 Balance -708.6 -3370 -160 Intake: IV 891.4 250 Lactated Ringers Solution 891.4 250 1,000 ml @ 125 mls/hr IV ASDIR GERALD Rx#: [id number] Oral 410 440 Output: Urine 1600 4030 600 Raymundo 1600 3700 600 Void 330 Other: Voiding Method Indwelling Catheter Urinal Urinal # Unmeasured Voids Void 1 2 Bowel Movement No No Yes # Bowel Movements 1 CBC, BMP 04/10/18 06:50 04/06/18 17:30 PE: A&Ox3, NAD Unlabored resp on RA RLQ incision c/d/i with levy in situ and surrounding tissue intact, No evidence tracking erythema, collection or active d/c. TTP around incision. Abd soft , ND Right LE incision c/d/i with levy in situ and surrounding tissue intact, No evidence tracking erythema, collection or active d/c. TTP around incision appropriate to status. Re-dressed with Betadine, 4x4 and medipore tape. b/L LE compartments soft, supple and non-tender. LE warm and well perfused with +DP and PT pulses. Patient able to dorsiflex/ plantarflex and move toes with some pain blocking. Problem List - Problems (1) Arterial occlusion Assessment/Plan: POD #4 Right LE bypass doing well. 1) Continue DVT prophylaxis with Lovenox and aspiring as ordered 2) OOB with PT today WBAT with walker PRN 3) Protonix 40mg daily for GERD 4) Encourage daily IS 5) Keep dressings clean and dry. Evaluation and plan discussed with Dr Stoner. Code(s): I70.90 - UNSPECIFIED ATHEROSCLEROSIS
[2018-04-10] MEDS: ACETAMINOPHEN 325 MG TABLET (FP) PO PRN (14:02)
[2018-04-10] MEDS: oxyCODONE HCL 5 MG TABLET PO PRN (14:03)
[2018-04-11] MEDS: GABAPENTIN 300 MG CAPSULE (FP) PO SCH ×3 (06:47→21:46)
[2018-04-11 07:29] LABS: HEMATOCRIT 40.3 % (35.4-49); MCH 29.5 pg (25.7-33.7); MCHC 32.2 g/dl (32.0-35.9); MEAN CELL VOLUME 91.4 fl (80-96); MEAN PLT VOLUME 7.9 fl (7.5-11.1); PLATELET COUNT 310 K/MM3 (134-434); RDW 17.1 % (11.9-15.9); WHITE BLOOD COUNT 14.1 K/mm3 (4.0-10.0)
[2018-04-11] MEDS: ENOXAPARIN NA (PORCINE) 80 MG/0.8 ML DISP.SYRIN SQ SCH ×2 (09:46→21:46)
[2018-04-11] MEDS: DOCUSATE SODIUM 100 MG CAPSULE (FP) PO SCH ×2 (09:46→21:46)
[2018-04-11] MEDS: oxyCODONE HCL 5 MG TABLET PO PRN (09:46)
[2018-04-11] MEDS: ACETAMINOPHEN 325 MG TABLET (FP) PO PRN (09:47)
[2018-04-11] MEDS: PANTOPRAZOLE 40 MG TABLET (FP) PO SCH (09:47)
[2018-04-11] MEDS: ASPIRIN 81 MG CHEWABLE TABLETS PO SCH (09:49)
--- NOTE | 2018-04-11 10:42 | PN ---
Progress Note (short form) - Note Progress Note: C/o incisional pain VSSAbd soft, wound dry Right leg incision with small amount of serous drainage. Foot warm, palpable PT Labs WNL Stable Pain management OOB
[2018-04-11] MEDS: ATORVASTATIN CA 10 MG TABLET (FP) PO SCH (21:46)
[2018-04-11] MEDS ORDERED: PT OWN MED DRAWER 7, Y5N ONE (22:18)
[2018-04-12] MEDS: GABAPENTIN 300 MG CAPSULE (FP) PO SCH ×3 (06:11→21:48)
[2018-04-12 07:01] LABS: HEMATOCRIT 35.8 % (35.4-49); HEMOGLOBIN 11.8 GM/dL (11.7-16.9); MCH 29.7 pg (25.7-33.7); MEAN CELL VOLUME 89.9 fl (80-96); MEAN PLT VOLUME 7.4 fl (7.5-11.1); PLATELET COUNT 326 K/MM3 (134-434); RBC 3.98 M/mm3 (4.00-5.60); RDW 16.8 % (11.9-15.9); WHITE BLOOD COUNT 11.1 K/mm3 (4.0-10.0)
[2018-04-12] MEDS: ENOXAPARIN NA (PORCINE) 80 MG/0.8 ML DISP.SYRIN SQ SCH ×2 (10:21→21:48)
[2018-04-12] MEDS: PANTOPRAZOLE 40 MG TABLET (FP) PO SCH (10:22)
[2018-04-12] MEDS: ASPIRIN 81 MG CHEWABLE TABLETS PO SCH (10:22)
[2018-04-12] MEDS: DOCUSATE SODIUM 100 MG CAPSULE (FP) PO SCH ×2 (10:22→21:48)
[2018-04-12] MEDS: oxyCODONE HCL 5 MG TABLET PO PRN (11:17)
[2018-04-12] MEDS: ACETAMINOPHEN 325 MG TABLET (FP) PO PRN (11:17)
--- NOTE | 2018-04-12 13:52 | PN ---
Progress Note (short form) - Note Progress Note: VSS Pain a little better Wound clean Foot warm, pulses intact Increase walking, home with VNS.
[2018-04-12] MEDS: POLYETHYLENE GLYCOL 3350 119 GM BTL PO SCH (14:45)
[2018-04-12] MEDS: ATORVASTATIN CA 10 MG TABLET (FP) PO SCH (21:48)
[2018-04-13] MEDS: GABAPENTIN 300 MG CAPSULE (FP) PO SCH ×3 (05:55→21:14)
[2018-04-13] MEDS: oxyCODONE HCL 5 MG TABLET PO PRN ×2 (05:58→13:04)
--- NOTE | 2018-04-13 08:30 | PN ---
Progress Note (short form) - Note Progress Note: 57yo M s/p Rt ilio-tibial bypass with vein, seen and examined at bedside. Pt states that he continues to have some leg pain, but has been ambulating. Pt denies n/v, fever, chills. Last Vital Signs Temp Pulse Resp BP Pulse Ox 97.5 F L 89 20 123/75 92 L 04/13/18 06:00 04/13/18 06:00 04/13/18 06:00 04/13/18 06:00 04/12/18 21:00 CBC, BMP 04/12/18 06:30 04/06/18 17:30 PE: Gen: A&O x3 Resp: breathing comfortably Ext: RLE show clean incisions, no erythema or discharge. Palpable PT pulse, foot warm and pink. No edema Problem List - Problems (1) Arterial occlusion Assessment/Plan: Plan: -continue anticoagulation -oob/ambulate -pain management Code(s): I70.90 - UNSPECIFIED ATHEROSCLEROSIS
[2018-04-13] MEDS ORDERED: PT OWN MED DRAWER 7, Y5N ONE (10:46)
[2018-04-13] MEDS: ENOXAPARIN NA (PORCINE) 80 MG/0.8 ML DISP.SYRIN SQ SCH ×2 (10:49→21:15)
[2018-04-13] MEDS: DOCUSATE SODIUM 100 MG CAPSULE (FP) PO SCH ×2 (10:49→21:14)
[2018-04-13] MEDS: POLYETHYLENE GLYCOL 3350 119 GM BTL PO SCH (10:49)
[2018-04-13] MEDS: ASPIRIN 81 MG CHEWABLE TABLETS PO SCH (10:49)
[2018-04-13] MEDS: PANTOPRAZOLE 40 MG TABLET (FP) PO SCH (10:50)
[2018-04-13] MEDS: ATORVASTATIN CA 10 MG TABLET (FP) PO SCH (21:14)
[2018-04-14] MEDS: GABAPENTIN 300 MG CAPSULE (FP) PO SCH (06:08)
[2018-04-14] MEDS ORDERED: PT OWN MED DRAWER 7, Y5N ONE (09:12)
[2018-04-14] MEDS: ASPIRIN 81 MG CHEWABLE TABLETS PO SCH (09:13)
[2018-04-14] MEDS: DOCUSATE SODIUM 100 MG CAPSULE (FP) PO SCH (09:14)
[2018-04-14] MEDS: POLYETHYLENE GLYCOL 3350 119 GM BTL PO SCH (09:14)
[2018-04-14] MEDS: PANTOPRAZOLE 40 MG TABLET (FP) PO SCH (09:14)
[2018-04-14] MEDS: ENOXAPARIN NA (PORCINE) 80 MG/0.8 ML DISP.SYRIN SQ SCH (09:14)
[2018-04-14] MEDS: oxyCODONE HCL 5 MG TABLET PO PRN (09:15)
[2018-04-14 09:28] VITALS: TEMP 98
--- NOTE | 2018-04-14 10:19 | DS ---
Physical Exam: SUBJECTIVE: Patient seen and examined OBJECTIVE: 57yo M s/p RLE open thrombectomy on 04/06 and RLE ilio-tibial bypass with vein on 04/08. Pt tolerated the procedure well and has had good blood flow to his foot since the procedure. Pt ambulating well. Pt currently on Lovenox and aspirin. Pt admits to some RLE pain with ambulating, but is controlled with pain medication. Pt denies any n/v, fever, chills. Pt desires to go home. Vital Signs Temperature 98.0 F 04/14/18 09:26 Pulse Rate 94 H 04/14/18 09:26 Respiratory Rate 20 04/14/18 09:26 Blood Pressure 111/66 04/14/18 09:26 O2 Sat by Pulse Oximetry (%) 93 L 04/13/18 21:00 PHYSICAL EXAM GENERAL: The patient is awake, alert, and fully oriented, in no acute distress. HEAD: Normal with no signs of trauma. EYES: PERRL, extraocular movements intact, sclera anicteric, conjunctiva clear. ENT: Ears normal, nares patent, oropharynx clear without exudates, moist mucous membranes. NECK: Trachea midline, full range of motion, supple. ABDOMEN: Soft, nontender, nondistended, normoactive bowel sounds, no guarding, no rebound, no hepatosplenomegaly, no masses. EXTREMITIES: 2+ pulses, warm, well-perfused, +1 edema in RLE, RLE incisions are clean with no erythema or discharge. NEUROLOGICAL: Cranial nerves II through XII grossly intact. Normal speech, gait not observed. PSYCH: Normal mood, normal affect. SKIN: Warm, dry, normal turgor, no rashes or lesions noted. LABS CBC,CMP WBC 11.1 K/mm3 (4.0-10.0) H 04/12/18 06:30 RBC 3.98 M/mm3 (4.00-5.60) L 04/12/18 06:30 Hgb 11.8 GM/dL (11.7-16.9) 04/12/18 06:30 Hct 35.8 % (35.4-49) 04/12/18 06:30 MCV 89.9 fl (80-96) 04/12/18 06:30 MCH 29.7 pg (25.7-33.7) 04/12/18 06:30 MCHC 33.0 g/dl (32.0-35.9) 04/12/18 06:30 RDW 16.8 % (11.9-15.9) H 04/12/18 06:30 Plt Count 326 K/MM3 (134-434) 04/12/18 06:30 MPV 7.4 fl (7.5-11.1) L 04/12/18 06:30 Absolute Neuts (auto) 10.7 K/mm3 (1.5-8.0) H 04/10/18 06:50 Neutrophils % 76.8 % (42.8-82.8) 04/10/18 06:50 Lymphocytes % 12.5 % (8-40) D 04/10/18 06:50 Monocytes % 10.2 % (3.8-10.2) 04/10/18 06:50 Eosinophils % 0.2 % (0-4.5) 04/10/18 06:50 Basophils % 0.3 % (0-2.0) 04/10/18 06:50 Nucleated RBC % 0 % (0-0) 04/10/18 06:50 Sodium 140 mmol/L (136-145) 04/06/18 17:30 Potassium 4.4 mmol/L (3.5-5.1) 04/06/18 17:30 Chloride 107 mmol/L (98-107) 04/06/18 17:30 Carbon Dioxide 25 mmol/L (21-32) 04/06/18 17:30 Anion Gap 8 MMOL/L (8-16) 04/06/18 17:30 BUN 19 mg/dL (7-18) H 04/06/18 17:30 Creatinine 1.0 mg/dL (0.55-1.3) 04/06/18 17:30 Creat Clearance w eGFR > 60 (>60) 04/06/18 17:30 Random Glucose 87 mg/dL (74-106) 04/06/18 17:30 Calcium 9.5 mg/dL (8.5-10.1) 04/06/18 17:30 Total Bilirubin 0.1 mg/dL (0.2-1) L 04/06/18 17:30 AST 20 U/L (15-37) 04/06/18 17:30 ALT 27 U/L (13-61) 04/06/18 17:30 Alkaline Phosphatase 86 U/L (45-117) 04/06/18 17:30 Total Protein 7.7 g/dl (6.4-8.2) 04/06/18 17:30 Albumin 3.7 g/dl (3.4-5.0) 04/06/18 17:30 HOSPITAL COURSE: Date of Admission:04/06/18 Date of Discharge: 04/14/18 Minutes to complete discharge: 20 Visit type - Case Type Case Type: ED Admission - Emergency Emergency Visit: Yes ED Registration Date: 04/06/18 Care time: The patient presented to the Emergency Department on the above date and was hospitalized for further evaluation of their emergent condition. - New patient This patient is new to me today: No
[2018-04-14 12:41] VITALS: BP 122/69; PULSE 90
== END 2018-04-14 12:53 | disposition home or self-care (01) | DRG 253 ==
LOC: JER 16:41 → JERBED 22:40 → J8W 22:51 → JICU 04-08 19:21 → J8W 04-09 19:32
PROVIDERS: ADMIT Surgery; ATTEND Surgery
PROC: 04CP0ZZ Extirpation of Matter from Right Anterior Tibial Artery, Open Approach (ICD-10-PCS; 2018-04-06)
PROC: 04CK0ZZ Extirpation of Matter from Right Femoral Artery, Open Approach (ICD-10-PCS; 2018-04-06 19:00)
PROC: 061P0ZY Bypass Right Saphenous Vein to Lower Vein, Open Approach (ICD-10-PCS; principal; 2018-04-08 14:00)
DX: T82.868A Thrombosis due to vascular prosthetic devices, implants and grafts, initial encounter (principal); I74.3 Embolism and thrombosis of arteries of the lower extremities; I70.209 Unspecified atherosclerosis of native arteries of extremities, unspecified extremity; Y83.8 Other surgical procedures as the cause of abnormal reaction of the patient, or of later complication, without mention of misadventure at the time of the procedure; E78.5 Hyperlipidemia, unspecified
CPT/HCPCS: 36415; 71045-TC-FY; 80053; 85025; 85027; 85610; 85730; 86850; 86900; 86901; 86922; 93005; 93010; 94010; 94760; 97116-GP; 97161-GP; 99283-25; J1644

== ENCOUNTER 2018-06-24 23:01 | Inpatient (IN) | payer BC ==
--- NOTE | 2018-06-25 01:25 | PDOC ---
History of Present Illness - General Chief Complaint: Pain Stated Complaint: RT LEG pain Time Seen by Provider: 06/25/18 00:51 History Source: Patient Exam Limitations: No Limitations Past History - Past Medical History Allergies/Adverse Reactions: Allergies Allergy/AdvReac Type Severity Reaction Status Date / Time Penicillins Allergy Verified 06/24/18 23:17 Home Medications: Ambulatory Orders Aspirin [ASA -] 81 mg PO DAILY #30 tab.chew 12/02/17 Enoxaparin Sodium [Lovenox] 80 mg SQ BID #60 syringe 12/02/17 Gabapentin [Neurontin] 300 mg PO TID 03/12/18 Simvastatin 20 mg PO HS 03/12/18 Anemia: No Asthma: No Cancer: No Cardiac Disorders: No CVA: No COPD: No CHF: No DVT: Yes Dementia: No Diabetes: No GI Disorders: No Disorders: No HTN: Yes Hypercholesterolemia: Yes Kidney Stones: Yes Liver Disease: No Seizures: No Thyroid Disease: No - Surgical History Abdominal Surgery: No Appendectomy: No Cardiac Surgery: No Cholecystectomy: No Lung Surgery: No Neurologic Surgery: No Orthopedic Surgery: No - Suicide/Smoking/Psychosocial Hx Smoking Status: Yes Smoking History: Never smoked Have you smoked in the past 12 months: No Number of Cigarettes Smoked Daily: 0 If you are a former smoker, when did you quit?: cigars, 4 months ago Cigars Per Day: 5 Information on smoking cessation initiated: No 'Breaking Loose' booklet given: 03/13/18 Hx Alcohol Use: No Drug/Substance Use Hx: No Substance Use Type: None Hx Substance Use Treatment: No *Physical Exam - Vital Signs Last Vital Signs Temp Pulse Resp BP Pulse Ox 97.9 F 102 H 16 147/87 100 06/24/18 23:14 06/24/18 23:14 06/24/18 23:14 06/24/18 23:14 06/24/18 23:14 - Physical Exam General Appearance: No: Apparent Distress Respiratory/Chest: positive: Lungs Clear, Normal Breath Sounds. negative: Respiratory Distress Cardiovascular: positive: Regular Rhythm, Regular Rate, S1, S2. negative: Murmur Extremity: positive: Coldness, Other (Minimal edema to BLE (R slightly greater than L), RLE is cold to touch, unable to feel pedal pulses or popliteal pulse in RLE and LLE; LLE slightly cold but not as cold as RLE). negative: Calf Tenderness, Erythema Neurologic: positive: Fully Oriented, Alert, Normal Mood/Affect Moderate Sedation - Procedure Monitoring Vital Signs: Procedure Monitoring Vital Signs Temperature 97.9 F 06/24/18 23:14 Pulse Rate 102 H 06/24/18 23:14 Respiratory Rate 16 06/24/18 23:14 Blood Pressure 147/87 06/24/18 23:14 O2 Sat by Pulse Oximetry (%) 100 06/24/18 23:14 ED Treatment Course - LABORATORY CBC & Chemistry Diagram: 06/25/18 01:20 06/25/18 01:20 - RADIOLOGY Radiology Studies Ordered: Category Date Time Status DUPLEX ART. LOWER COMPL US [US] Stat Ultrasound 06/25/18 01:10 Ordered Medical Decision Making - Medical Decision Making 57 y/o M ex-smoker, hx of HLD, aortobifemoral bypass 2011 c/b need for multiple thrombectomies, recent RLE open thrombectomy 03/12 and RLE ilio-tibial bypass presents with RLE pain that started today along with coolness to extremities. Patient was concerned about another potential blockage. Patient is currently on Lovenox 80 mg BID. Denies fever, sob, cp, abd pain, n/v. He is following with Dr. Stoner and was due for another ultrasound of extremities next week. PE concerning for arterial occlusion Plan: Labs, arterial duplex 06/25/18 01:22 Notified by radiologist that patient with complete occlusion in RLE as well as L posterior tibial artery occlusion Findings d/w Dr. Stoner - advised to give Heparin bolus 71807 units and start heparin drip; he will be coming in to evaluate patient Patient made NPO To be admitted 06/25/18 03:11 *DC/Admit/Observation/Transfer Diagnosis at time of Disposition: Arterial occlusion, lower extremity - Discharge Dispostion Condition at time of disposition: Stable Decision to Admit order: Yes - Referrals Referrals: Lazaro Anand MD [Primary Care Provider] - - Patient Instructions - Post Discharge Activity
[2018-06-25 01:37] LABS: BASO % 0.7 % (0-2.0); EOS % 0.5 % (0-4.5); HEMATOCRIT 44.5 % (35.4-49); HEMOGLOBIN 15.4 GM/dL (11.7-16.9); LYMPH % 19.8 % (8-40); MCH 30.9 pg (25.7-33.7); MCHC 34.5 g/dl (32.0-35.9); MEAN CELL VOLUME 89.5 fl (80-96); MEAN PLT VOLUME 7.1 fl (7.5-11.1); MONO % 5.6 % (3.8-10.2); NEUT % 73.4 % (42.8-82.8); PLATELET COUNT 383 K/MM3 (134-434); RBC 4.98 M/mm3 (4.00-5.60); RDW 16.2 % (11.9-15.9); WHITE BLOOD COUNT 12.7 K/mm3 (4.0-10.0)
[2018-06-25 01:49] LABS: INR 1.06 (0.83-1.09); PROTHROMBIN TIME (PATIENT) 12.5 SEC (9.7-13.0)
[2018-06-25 01:51] LABS: ACTIVATED PTT 30.9 SECONDS (25.2-36.5)
[2018-06-25 01:58] LABS: ALBUMIN 3.6 g/dl (3.4-5.0); ALK PHOS 88 U/L (45-117); ANION GAP 6 MMOL/L (8-16); BILIRUBIN,TOTAL 0.2 mg/dL (0.2-1); BLOOD UREA NITROGEN 18 mg/dL (7-18); CALCIUM 9.6 mg/dL (8.5-10.1); CHLORIDE 104 mmol/L (98-107); CO2 26 mmol/L (21-32); GLUCOSE,RANDOM 111 mg/dL (74-106); POTASSIUM 4.3 mmol/L (3.5-5.1); SGOT/AST 15 U/L (15-37); SGPT/ALT 26 U/L (13-61); SODIUM 136 mmol/L (136-145); TOT PROT 7.5 g/dl (6.4-8.2)
[2018-06-25] MEDS ORDERED: HEPARIN NA (PORCINE) 5,000 UNITS/ML 1ML VIAL IVPUSH ONE (03:10)
[2018-06-25] MEDS ORDERED: HEPARIN - 25,000 UNIT in SODIUM CHLORIDE 495 ML IV SCH (03:15)
[2018-06-25] MEDS ORDERED: HEPARIN INFUSION - 25,000 UNITS/500 ML INFUS.BAG IVPB ONE (03:29)
[2018-06-25] MEDS ORDERED: HEPARIN NA (PORCINE) 5,000 UNITS/ML 1ML VIAL ONE ×2 (03:29→04:48)
[2018-06-25] MEDS ORDERED: ONDANSETRON 4 MG/2 ML VIAL IVPUSH PRN (04:10)
[2018-06-25] MEDS ORDERED: LIDOCAINE HCL 1%, 10 MG/ML (20ML VIAL) ONE (04:14)
--- NOTE | 2018-06-25 04:23 | HP ---
Admitting History and Physical - Admission History of Present Illness: 57 year old man with history of aortobifemoral bypass 8 years ago. Last year he presented with occlusion of the bypass graft and underwent thrombectomy. He then occluded the right femoral and popliteal arteries and required bypass to the anterior tibial with PTFE which had multiple episodes of thrombosis despite using multiple anticoagulation regimens. A new bypass from the right iliac graft to the PROFESSOR/NURSE ANESTHETIST was done on 04/09/18. He was continued on SQ Lovenox BID but developed stenosis of the PROFESSOR/NURSE ANESTHETIST distal to the graft which was treated with balloon angioplasty. The Lovenox was continued. He was seen 1 week ago with a palpable PT pulse. Last evening at 8 PM he noted pain in the right calf and foot after walking during the day. History Source: Patient, Medical Record - Past Medical History Cardiovascular: Yes: HTN, Hyperlipdemia Renal/: Yes: Renal Calculi - Past Surgical History Past Surgical History: Yes: Bypass - Smoking History Smoking history: Never smoked Have you smoked in the past 12 months: No Aproximately how many cigarettes per day: 0 If you are a former smoker, when did you quit?: cigars, 4 months ago - Alcohol/Substance Use Hx Alcohol Use: No History of Substance Use: reports: None - Social History ADL: Independent History of Recent Travel: No Home Medications - Allergies Allergies/Adverse Reactions: Allergies Allergy/AdvReac Type Severity Reaction Status Date / Time Penicillins Allergy Verified 06/24/18 23:17 - Home Medications Home Medications: Ambulatory Orders Aspirin [ASA -] 81 mg PO DAILY #30 tab.chew 12/02/17 Enoxaparin Sodium [Lovenox] 80 mg SQ BID #60 syringe 12/02/17 Gabapentin [Neurontin] 300 mg PO TID 03/12/18 Simvastatin 20 mg PO HS 03/12/18 Physical Examination Vital Signs: Vital Signs Temperature 97.9 F 06/24/18 23:14 Pulse Rate 102 H 06/24/18 23:14 Respiratory Rate 16 06/24/18 23:14 Blood Pressure 147/87 06/24/18 23:14 O2 Sat by Pulse Oximetry (%) 100 06/24/18 23:14 Constitutional: Yes: No Distress Eyes: Yes: WNL HENT: Yes: WNL Neck: Yes: Supple Cardiovascular: Yes: Regular Rate and Rhythm Respiratory: Yes: WNL Gastrointestinal: Yes: Soft Extremities: Yes: Other (Right calf and foot cool, mild cyanosis. No palpable graft pulse.) Edema: Yes Edema: RLE: 2+ Labs: CBC, BMP 06/25/18 01:20 06/25/18 01:20 Problem List - Problems (1) Arterial occlusion, lower extremity Assessment/Plan: Recurrent bypass occlusion despite outpatient anticoagulation. Plan open thrombectomy and angiogram Code(s): I70.209 - UNSP ATHSCL [place]E ARTERIES OF EXTREMITIES, UNSP EXTREMITY
[2018-06-25] MEDS ORDERED: CLINDAMYCIN PHOSPHATE 600 MG/4 ML VIAL ONE (04:30)
[2018-06-25] MEDS ORDERED: CLINDAMYCIN 600 MG PREMIX BAG IVPB ONE (04:55)
[2018-06-25] MEDS ORDERED: DEXAMETHASONE SOD PHOSPHATE 4 MG/1 ML VIAL ONE (05:18)
[2018-06-25] MEDS ORDERED: ALTEPLASE 2 MG VIAL CVP ONE (05:45)
[2018-06-25] MEDS ORDERED: NITROGLYCERIN 50 MG/10 ML VIAL IVPB ONE (05:55)
[2018-06-25] MEDS ORDERED: ePHEDrine SULFATE 50 MG/1 ML AMPULE ONE (06:06)
[2018-06-25] MEDS ORDERED: ALTEPLASE 2 MG VIAL NR ONE (06:17)
--- NOTE | 2018-06-25 06:39 | OP ---
Operative Note - Note: Operative Date: 06/25/18 Pre-Operative Diagnosis: Thrombosed bypass right leg Operation: Open thrombectomy right leg bypass. Angiogram and angioplasty posterior tibial artery. Infusion TPA and NTG into foot. Findings: Thrombus within right ilio-tibial bypass, mainly in the proximal graft. After thrombectomy there was no angiographic evidence for bypass graft stenosis. Patent distal anastomosis with distal FAST FOOD ASSISTANT RESTAURANT MANAGER stenosis. Post-Operative Diagnosis: Same as Pre-op Surgeon: Carlos Stoner Anesthesiologist/HAND BRIM IRONER: Karen Williamson Anesthesia: General Specimens Removed: Clot from bypass graft Estimated Blood Loss (mls): 20
--- NOTE | 2018-06-25 07:25 | PDOC ---
*Physical Exam - Vital Signs Last Vital Signs Temp Pulse Resp BP Pulse Ox 97.9 F 91 H 18 138/80 100 06/24/18 23:14 06/25/18 04:00 06/25/18 04:00 06/25/18 04:00 06/25/18 04:00 ED Treatment Course - LABORATORY CBC & Chemistry Diagram: 06/25/18 01:20 06/25/18 01:20 - ADDITIONAL ORDERS Additional order review: Laboratory Results 06/25/18 06/25/18 06/25/18 01:20 01:20 01:20 PT with INR 12.50 INR 1.06 PTT (Actin FS) 30.9 Sodium 136 Potassium 4.3 Chloride 104 Carbon Dioxide 26 Anion Gap 6 L BUN 18 Creatinine 1.0 Creat Clearance w eGFR > 60 Random Glucose 111 H Calcium 9.6 Total Bilirubin 0.2 AST 15 ALT 26 Alkaline Phosphatase 88 Total Protein 7.5 Albumin 3.6 Blood Type A POSITIVE Antibody Screen Negative 06/25/18 01:20 RBC 4.98 MCV 89.5 MCHC 34.5 RDW 16.2 H MPV 7.1 L Neutrophils % 73.4 Lymphocytes % 19.8 D Monocytes % 5.6 Eosinophils % 0.5 D Basophils % 0.7 - Medications Given in the ED: ED Medications Discontinued Medications Generic Name Dose Route Start Last Admin Trade Name Freq PRN Reason Stop Dose Admin Heparin Sodium (Porcine) 10,000 unit 06/25/18 03:10 06/25/18 03:41 Heparin - IVPUSH 06/25/18 03:11 10,000 unit ONCE ONE Administration Medical Decision Making - Medical Decision Making 06/25/18 07:25 Case discussed with JUSTIN Byers Agree with exam as documented by JUSTIN Agree with assessment and plan *DC/Admit/Observation/Transfer Diagnosis at time of Disposition: Arterial occlusion, lower extremity - Discharge Dispostion Condition at time of disposition: Stable - Referrals - Patient Instructions - Post Discharge Activity
[2018-06-25] MEDS: HEPARIN - 25,000 UNIT in SODIUM CHLORIDE 495 ML IV SCH ×2 (08:15→08:20)
[2018-06-25] MEDS ORDERED: HEPARIN NA (PORCINE) 5,000 UNITS/ML 1ML VIAL IVPUSH PRN (08:29)
[2018-06-25 10:19] VITALS: BMI 24.0
--- NOTE | 2018-06-25 10:55 | PN ---
Progress Note, Physician Chief Complaint: AWAKE ALERT CHART REVIEWED NAD - Current Medication List Current Medications: Active Medications Fentanyl (Sublimaze Injection -) 50 mcg IVPUSH [id number] PRN PRN Reason: PAIN-PACU ORDER X 4 DOSES ONLY Heparin Sodium (Porcine) (Heparin -) 1,000 unit IVPUSH PRN PRN PRN Reason: Heparin Heparin Sodium (Porcine) (Heparin -) 5,000 unit IVPUSH PRN PRN PRN Reason: Heparin Heparin Sodium (Porcine) 25, (000 unit/ Sodium Chloride) 500 mls @ 20 mls/hr IV TITR GERALD; Protocol Last Admin: 06/25/18 08:15 Dose: Not Given Ondansetron HCl (Zofran Injection) 4 mg IVPUSH Q6H PRN PRN Reason: NAUSEA AND/OR VOMITING - Objective Vital Signs: Vital Signs Temperature 97.8 F 06/25/18 08:20 Pulse Rate 85 06/25/18 08:20 Respiratory Rate 15 06/25/18 08:30 Blood Pressure 121/71 06/25/18 08:20 O2 Sat by Pulse Oximetry (%) 98 06/25/18 10:00 Constitutional: Yes: Mild Distress Eyes: Yes: WNL HENT: Yes: WNL Neck: Yes: WNL Cardiovascular: Yes: WNL Respiratory: Yes: WNL Gastrointestinal: Yes: WNL Genitourinary: Yes: Raymundo Present Musculoskeletal: Yes: Muscle Weakness Extremities: Yes: Other Edema: No Peripheral Pulses WNL: Yes Integumentary: Yes: WNL Wound/Incision: Yes: Open to air, Excoriated, Unapproximated ...Motor Strength: LLE, RLE Psychiatric: Yes: WNL Labs: CBC, BMP 06/25/18 01:20 06/25/18 01:20 INR, PTT INR 1.06 (0.83-1.09) 06/25/18 01:20 Problem List - Problems (1) Arterial occlusion, lower extremity Code(s): I70.209 - UNSP ATHSCL [place] ARTERIES OF EXTREMITIES, UNSP EXTREMITY (2) Arterial occlusion Code(s): I70.90 - UNSPECIFIED ATHEROSCLEROSIS (3) HLD (hyperlipidemia) Code(s): E78.5 - HYPERLIPIDEMIA, UNSPECIFIED (4) Occlusion of artery of leg Code(s): I70.209 - UNSP ATHSCL [place] ARTERIES OF EXTREMITIES, UNSP EXTREMITY Assessment/Plan IV HEPARIN POD #1 ARTERIAL OCCLUSION WITH LOWER EXTREMITY BYPASS LIPID CONTROL RAMON PARKINSON OOB TO CHAIR WHEN CLEARED BY FUNMILAYO DUPONT
--- NOTE | 2018-06-25 12:44 | EKG ---
Test Reason : Blood Pressure : / mmHG Vent. Rate : 086 BPM Atrial Rate : 086 BPM P-R Int : 132 ms QRS Dur : 098 ms QT Int : 372 ms P-R-T Axes : 062 067 064 degrees QTc Int : 445 ms NORMAL SINUS RHYTHM NORMAL ECG WHEN COMPARED WITH ECG OF 06-APR-2018 18:13, NO SIGNIFICANT CHANGE WAS FOUND Confirmed by JOSEFA ESPINOZA MD ([id number]) on 06/25/2018 12:43:43 PM Referred By: Confirmed By:JOSEFA ESPINOZA MD
--- NOTE | 2018-06-25 12:52 | PN ---
Teaching Attending Note Name of Resident: Kaiser Anand ATTENDING PHYSICIAN STATEMENT I saw and evaluated the patient. I reviewed the resident's note and discussed the case with the resident. I agree with the resident's findings and plan as documented. SUBJECTIVE: Pt seen and examined in the ICU. s/p open thrombectomy RLE bypass/angiogram/ thrombectomy/tPA. Some post op bleeding in PACU and arrival to ICU. Denies shortness of breath or chest pain. Denies leg pain. OBJECTIVE: Vital Signs Period Temp Pulse Resp BP Sys/White Pulse Ox Last 24 Hr 97.8 F-97.9 F 82-107 15-20 107-147/67-87 96-100 Intake & Output 06/22/18 06/23/18 06/24/18 06/25/18 23:59 23:59 23:59 23:59 Intake Total 1220 Output Total 495 Balance 725 Weight 77.111 kg 75.886 kg Gen: NAD at rest Heart: RRR Lung: decreased breath sounds at the bases Abd: soft, nontender Ext: RLE foot warm, +doppler pulse CBC, BMP 06/25/18 01:20 06/25/18 01:20 Active Medications Fentanyl (Sublimaze Injection -) 50 mcg IVPUSH [id number] PRN PRN Reason: PAIN-PACU ORDER X 4 DOSES ONLY Heparin Sodium (Porcine) (Heparin -) 1,000 unit IVPUSH PRN PRN PRN Reason: Heparin Heparin Sodium (Porcine) (Heparin -) 5,000 unit IVPUSH PRN PRN PRN Reason: Heparin Heparin Sodium (Porcine) 25, (000 unit/ Sodium Chloride) 500 mls @ 20 mls/hr IV TITR GERALD; Protocol Last Admin: 06/25/18 08:15 Dose: Not Given Ondansetron HCl (Zofran Injection) 4 mg IVPUSH Q6H PRN PRN Reason: NAUSEA AND/OR VOMITING ASSESSMENT AND PLAN: Right Ilio-tibial Bypass thrombus s/p open thrombectomy/angiogram/angioplasty/tPA HTN Hyperlipidemia - pulse checks - pain control - monitor incision site - continue anticoagulation - monitor H/H, coags - O2 as needed - PO as tolerated - continue ICU monitoring
[2018-06-25 13:58] LABS: HEMATOCRIT 40.3 % (35.4-49); HEMOGLOBIN 13.7 GM/dL (11.7-16.9); MCH 30.7 pg (25.7-33.7); MCHC 34.1 g/dl (32.0-35.9); MEAN PLT VOLUME 7.2 fl (7.5-11.1); PLATELET COUNT 317 K/MM3 (134-434); RBC 4.47 M/mm3 (4.00-5.60); RDW 15.9 % (11.9-15.9)
--- NOTE | 2018-06-25 14:28 | CONSULT ---
Consult Consult Specialty:: Pulm/CCM Referred by:: Dr. Stoner Reason for Consultation:: ICU monitoring poct-operatively - History of Present Illness Chief Complaint: RLE pain History of Present Illness: 57M with history of HTN, HLD, extensive peripheral vascular/arterial disease, presented to the hospital yesterday after extensive walking with RLE pain. Patient went to the OR early this AM and is POD #1 s/p open thrombectomy RLE bypass/angiogram/thrombectomy with tPA and nitroglycerin infusion. Infusions stopped in OR and patient now with heparin gtt to be titrated per protocol. Patient has some post operative bleeding in the PACU at the incision site. Patient also had bleeding in ICU pressure held and pressure dressing placed for a period of time until bleeding ceased. Patient has a history of aortobifemoral bypass 8 years ago. Patient has had multiple lower extremity vascular procedures over the past few years including thrombectomies, bypasses, and has been on different regimens of anticoagulation. Patient had this current event despite being on full dose lovenox BID. Patient currently denies nausea, vomiting, fever, chills, chest pain, SOB, urinary, or GI symptoms. Patient endorses his RLE pain has resolved and he is currently pain free. - History Source History Provided By: Patient, Medical Record Limitations to Obtaining History: Clinical Condition - Past Medical History Cardio/Vascular: Yes: HTN, Hyperlipdemia, Other (peripheral arterial disease) Renal/: Yes: Renal Calculi - Past Surgical History Past Surgical History: Yes: Bypass Additional Surgical History: multiple lower extremity bypasses and thrombectomies - Alcohol/Substance Use Hx Alcohol Use: No History of Substance Use: reports: None - Smoking History Smoking history: Former smoker Have you smoked in the past 12 months: No Aproximately how many cigarettes per day: 0 If you are a former smoker, when did you quit?: more than one year ago - Social History Usual Living Arrangement: [facility] ADL: Independent History of Recent Travel: No Home Medications - Allergies Allergies/Adverse Reactions: Allergies Allergy/AdvReac Type Severity Reaction Status Date / Time Penicillins Allergy Verified 06/24/18 23:17 - Home Medications Home Medications: Ambulatory Orders Aspirin [ASA -] 81 mg PO DAILY #30 tab.chew 12/02/17 Enoxaparin Sodium [Lovenox] 80 mg SQ BID #60 syringe 12/02/17 Gabapentin [Neurontin] 300 mg PO TID 03/12/18 Simvastatin 20 mg PO HS 03/12/18 Review of Systems - Review of Systems Constitutional: reports: No Symptoms Eyes: reports: No Symptoms HENT: reports: No Symptoms Neck: reports: No Symptoms Cardiovascular: reports: No Symptoms Respiratory: reports: No Symptoms Gastrointestinal: reports: No Symptoms Genitourinary: reports: No Symptoms Musculoskeletal: reports: Extremity Pain (RLE) Neurological: reports: No Symptoms Hematology/Lymphatic: reports: No Symptoms Psychiatric: reports: No Symptoms Physical Exam Vital Signs: Vital Signs Temperature 97.8 F 06/25/18 08:20 Pulse Rate 88 06/25/18 12:00 Respiratory Rate 15 06/25/18 12:00 Blood Pressure 124/72 06/25/18 12:00 O2 Sat by Pulse Oximetry (%) 98 06/25/18 10:00 Constitutional: Yes: Well Nourished, No Distress, Calm Eyes: Yes: Conjunctiva Clear, EOM Intact HENT: Yes: Atraumatic, Normocephalic Neck: Yes: Supple, Trachea Midline Cardiovascular: Yes: Regular Rate and Rhythm, S1, S2. No: Murmur Respiratory: Yes: Regular, CTA Bilaterally Gastrointestinal: Yes: Normal Bowel Sounds, Soft. No: Tenderness, Tenderness, Epigastrium Extremities: Yes: Other (RLE warm. Dopplerable DP pulse) Edema: No Wound/Incision: Yes: Bleeding (right groin incision. minimal groin swelling on right side) Neurological: Yes: Alert, Oriented Psychiatric: Yes: Alert, Oriented Labs: CBC, BMP 06/25/18 13:43 06/25/18 01:20 Imaging - Results Other: Image Reviewed (flouroscopy images from OR noted) Assessment/Plan 57M with extensive history of pewripheral arterial disease presents to the hospital with acute onset RLE pain while walking is now POD #0 s/p open thrombectomy RLE bypass/angiogram/thrombectomy/tPA/nitroglycerin gtt now on heparin gtt. Problem List: Peripheral vascular disease right ilio-tibial bypass graft thrombosis despite full dose anticoagulation s/p open thrombectomy RLE bypass/angiogram/thrombectomy with TPA and nitroglycerin infusions HTN HLD history of renal calculi former smoker Plan: continue heparin gtt per protocol Trend PTT q6h continue q1 doppler checks Pain control PRN continue to monitor groin for expansion and bleeding Trend CBC. will repeat CBC this afternoon and if patient continue to bleed will trend q6h incentive spirometry Advance diet as tolerated ICU care Dr. Stoner aware of bleeding episode CCTime 36 minutes
--- NOTE | 2018-06-25 15:48 | CONSULT ---
Consult Consult Specialty:: Hematology-Oncology Referred by:: Dr. Stoner Reason for Consultation:: lovenox evaluation - History of Present Illness Chief Complaint: right leg pain History of Present Illness: 57 yr old man with hx of peripheral arterial and vascular disease with bilateral ilio-femoral endarterectomies, patch angioplasty in both femoral arteries, and multiple interventions for thrombosis and occlusions since Jun 2017 presents with thrombosis in left leg. He took is dose of lovenox in the morning and was walking around all day. At 8pm he came home and tried to elevate his leg to relieve leg pain thinking it was from being on his feet all day. then at 10pm he was walking the grocery and could barely weight bear, he had to sit in his care for several mins waiting to the pain to pass, when he noticed the leg turning white he presented to the ED around 11pm. He underwent open thrombectomy with right leg bypass with TPA infusion and NTG into the foot. denies chest pain, sob, fevers, bleeding or bruising, rash, visual changes, headaches. surghx: Aortobifemoral bypass 2010, Left popliteal artery angioplasty 2011, aortic angioplasty - History Source History Provided By: Patient Limitations to Obtaining History: No Limitations - Past Medical History Cardio/Vascular: Yes: HTN, Hyperlipdemia, Other (peripheral arterial disease) Renal/: Yes: Renal Calculi - Past Surgical History Past Surgical History: Yes: Bypass Additional Surgical History: multiple lower extremity bypasses and thrombectomies - Alcohol/Substance Use Hx Alcohol Use: No History of Substance Use: reports: None - Smoking History Smoking history: Former smoker Have you smoked in the past 12 months: No Aproximately how many cigarettes per day: 0 If you are a former smoker, when did you quit?: more than one year ago - Social History Usual Living Arrangement: [facility] ADL: Independent History of Recent Travel: No Home Medications - Allergies Allergies/Adverse Reactions: Allergies Allergy/AdvReac Type Severity Reaction Status Date / Time Penicillins Allergy Verified 06/28/18 23:37 - Home Medications Home Medications: Ambulatory Orders Aspirin [ASA -] 81 mg PO DAILY #30 tab.chew 12/02/17 Enoxaparin Sodium [Lovenox] 80 mg SQ BID #60 syringe 12/02/17 Gabapentin [Neurontin] 300 mg PO TID 03/12/18 Simvastatin 20 mg PO HS 03/12/18 Review of Systems - Review of Systems Constitutional: reports: No Symptoms Eyes: reports: No Symptoms HENT: reports: No Symptoms Neck: reports: No Symptoms Cardiovascular: reports: No Symptoms Respiratory: reports: No Symptoms Gastrointestinal: reports: No Symptoms Musculoskeletal: reports: Extremity Pain Integumentary: reports: No Symptoms Neurological: reports: No Symptoms Physical Exam Vital Signs: Vital Signs Temperature 97.8 F 06/25/18 08:20 Pulse Rate 88 06/25/18 12:00 Respiratory Rate 15 06/25/18 12:00 Blood Pressure 124/72 06/25/18 12:00 O2 Sat by Pulse Oximetry (%) 98 06/25/18 10:00 Constitutional: Yes: Well Nourished, No Distress, Calm Eyes: Yes: Conjunctiva Clear, EOM Intact HENT: Yes: Atraumatic, Normocephalic Neck: Yes: Supple, Trachea Midline Cardiovascular: Yes: Regular Rate and Rhythm. No: Murmur Respiratory: Yes: Regular, CTA Bilaterally Gastrointestinal: Yes: Normal Bowel Sounds, Soft Extremities: Yes: Cool (left leg with normal capillary refill at 1st toe. right leg warm with normal cap refill, doppler DP pulses b/l) Edema: No Integumentary: Yes: WNL Wound/Incision: Yes: Clean/Dry Neurological: Yes: Alert, Oriented Labs: CBC, BMP 06/25/18 13:43 06/25/18 01:20 Assessment/Plan - pt has a history of erratic therapeutic INR levels on coumadin and developed thrombosis on eliquis last year. - current regimen of weight based lovenox BID and aspirin would be the ideal plan given limited data to either add additional AC therapies or reinitiate failed therapy in the patient. - recommend cardiology consult to provide risk reduction strategies for patient with PAD, last lipid profile in 07/2017 with elevated LDL, pt is on simvastatin 20mg - can pursue thrombophilia work-up with anticardiolipin, beta2 antiglobulin, lupus anticoagulant given recurrent thrombosis(will need pathology approval as inpatient or can complete as outpatient), chart review reveals lab work from 2010 below, unfortunately EMR documentation is not available for that time so it is unclear under what circumstances these levels were drawn as AC can affect levels of protein S and C Laboratory Tests 10/22/10 10/22/10 10/30/10 10:00 10:00 00:48 LA PTT Baseline 43.5 dRVVT Confirm Interp 40.4 Protein C Activity 161 H APC - PTT Baseline 31.3 D Protein S Activity 127 WILBER Screen See patterns WILBER Homogeneous Pattern 1:320 Smooth Musc &IRRIGATION EQUIPMENT INSTALLER Intrp 59 MCHC 30.9 RDW 13.7
--- NOTE | 2018-06-25 16:31 | PN ---
Progress Note (short form) - Note Progress Note: 57 y/o M w/ PMHx hld, extensive vascular history, s/p aortobifemoral bypass in 2011, R femoral-tibial bypass in October 2017 on therapeutic lovenox, s/p multiple thrombectomies of bypass, s/p Right ilio-tibial bypass with non-reversed saphenous vein (04/08), now s/p Open thrombectomy right leg bypass. Angiogram and angioplasty posterior tibial artery. Infusion TPA and NTG into foot. Pt seen this afternoon around 3pm. In good spirits. Requesting pham catheter be removed. Triphasic signal over RLE bypass. Foot warm, 5/5 dorsiflexion/plantar flexion. R groin dressing c/d/i. Continue Heparin gtt, keep therapeutic (PTT 60-90; currently 83) Pham can be removed (RN notified) Continue neurovascular checks per protocol Monitor I&Os Monitor VS per protocol Pain management as ordered above d/c attending Dr Stoner
--- NOTE | 2018-06-25 23:31 | PN ---
Teaching Attending Note Name of Resident: Sharron Sunshine ATTENDING PHYSICIAN STATEMENT ASSESSMENT AND PLAN: 57 year old man with history of aortobifemoral bypass 8 years ago. Last year he presented with occlusion of the bypass graft and underwent thrombectomy. He then occluded the right femoral and popliteal arteries and required bypass to the anterior tibial with PTFE which had multiple episodes of thrombosis despite using multiple anticoagulation regimens. A new bypass from the right iliac graft to the TALENT ACQUISITION ASSISTANT was done on 04/09/18. He was continued on SQ Lovenox BID but developed stenosis of the TALENT ACQUISITION ASSISTANT distal to the graft which was treated with balloon angioplasty. The Lovenox was continued. - Past Medical History Cardiovascular: Yes: HTN, Hyperlipdemia, pvd Renal/: Yes: Renal Calculi - Past Surgical History Past Surgical History: Yes: Bypass - Smoking History Smoking history: Never smoked - Allergies Allergies/Adverse Reactions: Allergies Allergy/AdvReac Type Severity Reaction Status Date / Time Penicillins Allergy Verified 06/24/18 23:17 - Home Medications Home Medications: Ambulatory Orders Aspirin [ASA -] 81 mg PO DAILY #30 tab.chew 12/02/17 Enoxaparin Sodium [Lovenox] 80 mg SQ BID #60 syringe 12/02/17 Gabapentin [Neurontin] 300 mg PO TID 03/12/18 Simvastatin 20 mg PO HS 03/12/18 Physical Examination Vital Signs: Last Vital Signs Temp Pulse Resp BP Pulse Ox 97.9 F 73 17 111/69 96 06/26/18 20:00 06/26/18 20:00 06/26/18 20:00 06/26/18 20:00 06/26/18 16:39 Constitutional: Yes: No Distress Eyes: Yes: WNL HENT: Yes: WNL Neck: Yes: Supple Cardiovascular: Yes: Regular Rate and Rhythm Respiratory: Yes: WNL Gastrointestinal: Yes: Soft Extremities: Yes: Other (Right calf and foot cool, mild cyanosis. No palpable graft pulse.) Edema: RLE: 2+ Labs/meds reviewed a/p Open thrombectomy right leg bypass. Angiogram and angioplasty posterior tibial artery. Infusion TPA and NTG into foot. Thrombus within right ilio-tibial bypass, mainly in the proximal graft. HTN Hyperlipidemia Major society guidelines recommend long-term aspirin therapy or clopidogrel for all patients with atherosclerotic peripheral artery disease. Anticoagulation can be considered for patients at high risk for graft thrombosis but may provide more benefit for those with a vein bypass graft while dual antiplatelet therapy (aspirin plus clopidogrel) may be more appropriate for high-risk patients with a prosthetic graft. will discuss with vascular team
[2018-06-26 06:36] LABS: BASO % 0.4 % (0-2.0); EOS % 0.3 % (0-4.5); HEMATOCRIT 38.8 % (35.4-49); HEMOGLOBIN 12.5 GM/dL (11.7-16.9); LYMPH % 29.2 % (8-40); MCH 29.4 pg (25.7-33.7); MCHC 32.1 g/dl (32.0-35.9); MEAN CELL VOLUME 91.4 fl (80-96); MEAN PLT VOLUME 7.2 fl (7.5-11.1); MONO % 9.6 % (3.8-10.2); NEUT % 60.5 % (42.8-82.8); PLATELET COUNT 315 K/MM3 (134-434); RBC 4.25 M/mm3 (4.00-5.60); RDW 16.2 % (11.9-15.9); WHITE BLOOD COUNT 12.4 K/mm3 (4.0-10.0)
[2018-06-26 07:12] LABS: ALBUMIN 2.8 g/dl (3.4-5.0); ALK PHOS 68 U/L (45-117); ANION GAP 4 MMOL/L (8-16); BILIRUBIN,TOTAL 0.2 mg/dL (0.2-1); BLOOD UREA NITROGEN 16 mg/dL (7-18); CALCIUM 8.7 mg/dL (8.5-10.1); CHLORIDE 105 mmol/L (98-107); CO2 28 mmol/L (21-32); CREATININE 0.9 mg/dL (0.55-1.3); GLUCOSE,RANDOM 102 mg/dL (74-106); MAGNESIUM 2.1 mg/dL (1.8-2.4); PHOSPHOROUS 3.8 mg/dL (2.5-4.9); POTASSIUM 4.1 mmol/L (3.5-5.1); SGOT/AST 11 U/L (15-37); SGPT/ALT 18 U/L (13-61); SODIUM 138 mmol/L (136-145)
--- NOTE | 2018-06-26 07:35 | PN ---
Physical Exam: SUBJECTIVE: Patient seen and examined OBJECTIVE: Vital Signs Period Temp Pulse Resp BP Sys/White Pulse Ox Last 24 Hr 97.8 F-98.5 F 67-95 15-20 102-124/57-74 97-98 GENERAL: Awake, alert, and fully oriented, in no acute distress HEAD: No signs of trauma, normocephalic, atraumatic EYES: PERRLA, EOMI, sclera anicteric, conjunctiva clear ENT: Hearing grossly normal, nares patent, oropharynx clear without exudates. Moist mucosa LUNGS: No distress, speaks full sentences, clear to auscultation bilaterally HEART: Regular rate and rhythm, normal S1 and S2, no murmurs appreciated, peripheral pulses normal and equal bilaterally ABDOMEN: Soft, nontender, normoactive bowel sounds. No guarding, no rebound EXTREMITIES: R groin dressing C/D/I, R DP and PT w/ biphasic dopplerable signals NEUROLOGICAL: Cranial nerves II through XII grossly intact. Normal speech, no focal sensorimotor deficits SKIN: Warm, Dry ASSESSMENT/PLAN: The pt is a 57M with extensive history of pewripheral arterial disease presents to the hospital with acute onset RLE pain while walking is now POD #0 s/p open thrombectomy RLE bypass/angiogram/thrombectomy/tPA/nitroglycerin gtt now on heparin gtt. Neuro Acute post-op pain -Pain well controlled at this time CV PVD s/p open thrombectomy RLE bypass/angiogram/thrombectomy with TPA and nitroglycerin infusions -Continue heparin gtt per protocol -Trend PTT q6h -Continue doppler checks, biphasic dopplerable signals, DP/PT this AM -Trend CBC, Hgb stable PULM Continue IS GI Nutrition -Regular diet Adequate Uop HEME Hgb 12.5 from 13 -No need for transfusion at this time ID Afebrile, no leukocytosis ENDO No DM No history of thyroid disease MSK -OOB as tolerated LTD -PIV Dispo: Patient no longer requires ICU level of care, plan to transfer to floor today Visit type - Emergency Visit Emergency Visit: Yes ED Registration Date: 06/25/18 Care time: The patient presented to the Emergency Department on the above date and was hospitalized for further evaluation of their emergent condition. - New Patient This patient is new to me today: Yes Date on this admission: 01/11/19 - Critical Care Critical Care patient: Yes Total Critical Care Time (in minutes): 35 Critical Care Statement: The care of this patient involved high complexity decision making to prevent further life threatening deterioration of the patient 's condition and/or to evaluate & treat vital organ system(s) failure or risk of failure.
[2018-06-26] MEDS: HEPARIN NA (PORCINE) 5,000 UNITS/ML 1ML VIAL IVPUSH PRN ×2 (08:20→16:34)
--- NOTE | 2018-06-26 08:49 | PN ---
Progress Note (short form) - Note Progress Note: POD 1, s/p Open thrombectomy right leg bypass. Angiogram and angioplasty posterior tibial artery. Infusion TPA and NTG into foot. Pt seen and examined. States he is feeling well this morning. Denies any pain, reports sleeping through the night without issue. Tolerating PO, has not been oob. Raymundo out, passed TOV. Denies cp/sob, n/v/d, calf pain/edema, decreased motor/sensation to foot. Vital Signs Temp 98.4 F 06/26/18 06:00 Pulse 63 06/26/18 06:00 Resp 13 06/26/18 06:00 BP 116/70 06/26/18 06:00 Pulse Ox 97 06/25/18 20:05 Intake & Output 06/25/18 06/25/18 06/26/18 11:59 23:59 11:59 Intake Total 1220 198 Output Total 495 1100 500 Balance 725 -1100 -302 Weight 167 lb 4.8 oz Intake: IV 1220 198 Heparin - 25,000 Unit In 198 Normal Saline - 495 ml @ 1,000 UNIT/HR 20 mls/hr IV TITR GERALD Rx#: [id number] Output: Urine 475 1100 500 Raymundo 1100 500 Estimated Blood Loss 20 Other: Voiding Method Indwelling Catheter Indwelling Catheter Bowel Movement No No Height 5 ft 10 in Body Mass Index (BMI) 24.0 Weight Measurement Method Built in [facility] CBC, BMP 06/26/18 05:30 06/26/18 05:30 Gen; awake, alert, nad, sitting up in bed Resp: cta b/l anteriorly CV: rrr, s1s2 Groin: Incision c/d/i, no erythema or drainage. Ext: R foot warm, well perfused, L foot slightly cool at toes. B/L le's with 5/ 5 dorsiflexion/plantar flexion. SILT b/l. B/L calf soft, nt. Vasc: RLE with triphasic signal over distal bypass/BOOK CUTTER. LLE with monophasic doppler signal over YAZ 57 y/o M w/ PMHx hld, extensive vascular history, s/p aortobifemoral bypass in 2011, R femoral-tibial bypass in October 2017 on therapeutic lovenox, s/p multiple thrombectomies of bypass, s/p Right ilio-tibial bypass with non-reversed saphenous vein (04/08), now s/p Open thrombectomy right leg bypass. Angiogram and angioplasty posterior tibial artery. Infusion TPA and NTG into foot. Continue Heparin gtt, keep therapeutic (PTT 60-90; currently 83) Continue neurovascular checks per protocol Monitor I&Os Monitor VS per protocol Pain management as ordered Bowel regimen as ordered Appreciate hematology evaluation Possible d/c later today above d/c attending Dr Stoner
--- NOTE | 2018-06-26 08:49 | PN ---
Progress Note (short form) - Note Progress Note: POD #1 - s/p right lower extremity angiogram/angioplasty/thrombectomy under GA. VSS. Pt. doing well, resting comfortably in bed. No complaints. No apparent anesthetic complications noted. Continue current care.
--- NOTE | 2018-06-26 12:53 | PN ---
Teaching Attending Note Name of Resident: Norberto Hernandez ATTENDING PHYSICIAN STATEMENT I saw and evaluated the patient. I reviewed the resident's note and discussed the case with the resident. I agree with the resident's findings and plan as documented. SUBJECTIVE: Patient seen and examined in the ICU. H&H appears stable. Pain seems adequately controlled. Denies shortness of breath or chest pain. OBJECTIVE: Intake & Output 06/23/18 06/24/18 06/25/18 06/26/18 23:59 23:59 23:59 23:59 Intake Total 1220 558 Output Total 1595 900 Balance -375 -342 Weight 170 lb 167 lb 4.8 oz Last Vital Signs Temp Pulse Resp BP Pulse Ox 97.9 F 72 16 116/73 98 06/26/18 10:00 06/26/18 12:00 06/26/18 12:00 06/26/18 12:00 06/26/18 08:00 Active Medications Heparin Sodium (Porcine) (Heparin -) 1,000 unit IVPUSH PRN PRN PRN Reason: Heparin Last Admin: 06/26/18 08:20 Dose: 1,000 unit Heparin Sodium (Porcine) (Heparin -) 5,000 unit IVPUSH PRN PRN PRN Reason: Heparin Heparin Sodium (Porcine) 25, (000 unit/ Sodium Chloride) 500 mls @ 20 mls/hr IV TITR GERALD; Protocol Last Titration: 06/26/18 08:01 Dose: 1,050 unit/hr, 21 mls/hr Ondansetron HCl (Zofran Injection) 4 mg IVPUSH Q6H PRN PRN Reason: NAUSEA AND/OR VOMITING Gen: NAD at rest Heart: RRR Lung: decreased breath sounds at the bases Abd: soft, nontender Ext: RLE foot warm, +doppler pulse Laboratory Results - last 24 hr 06/25/18 06/25/18 06/26/18 13:43 13:43 05:30 WBC 8.0 12.4 H RBC 4.47 4.25 Hgb 13.7 12.5 Hct 40.3 38.8 MCV 90.0 91.4 MCH 30.7 29.4 MCHC 34.1 32.1 RDW 15.9 16.2 H Plt Count 317 315 MPV 7.2 L 7.2 L Absolute Neuts (auto) 7.5 Neutrophils % 60.5 Lymphocytes % 29.2 D Monocytes % 9.6 Eosinophils % 0.3 Basophils % 0.4 Nucleated RBC % 0 PTT (Actin FS) 82.3 H Sodium Potassium Chloride Carbon Dioxide Anion Gap BUN Creatinine Creat Clearance w eGFR Random Glucose Calcium Phosphorus Magnesium Total Bilirubin AST ALT Alkaline Phosphatase Total Protein Albumin 06/26/18 06/26/18 05:30 05:30 WBC RBC Hgb Hct MCV MCH MCHC RDW Plt Count MPV Absolute Neuts (auto) Neutrophils % Lymphocytes % Monocytes % Eosinophils % Basophils % Nucleated RBC % PTT (Actin FS) 45.6 H Sodium 138 Potassium 4.1 Chloride 105 Carbon Dioxide 28 Anion Gap 4 L BUN 16 Creatinine 0.9 Creat Clearance w eGFR > 60 Random Glucose 102 Calcium 8.7 Phosphorus 3.8 Magnesium 2.1 Total Bilirubin 0.2 AST 11 L ALT 18 Alkaline Phosphatase 68 Total Protein 6.0 L Albumin 2.8 L ASSESSMENT AND PLAN: Right Ilio-tibial Bypass thrombus s/p open thrombectomy/angiogram/angioplasty/tPA HTN Hyperlipidemia - Pain control - pulse checks - monitor incision site - continue anticoagulation - monitor H/H, coags - O2 as needed - PO as tolerated - Disposition per surgery Dr Felipe
--- NOTE | 2018-06-26 14:43 | OP ---
DATE OF OPERATION: 06/25/2018 PROCEDURE: Open thrombectomy of right lower extremity iliofemoral bypass, angiography with angioplasty of the distal posterior tibial artery, infusion of tPA and nitroglycerin into posterior tibial artery. PREOPERATIVE DIAGNOSIS: Acute thrombosis of the right leg bypass. POSTOPERATIVE DIAGNOSIS: Acute thrombosis of the right leg bypass. ANESTHESIA: General. ANESTHESIA: [place]. OPERATIVE FINDINGS: This 57-year-old man with multiple recent procedures for right lower extremity ischemia and graft bypass failure most recently underwent a right iliotibial bypass with vein to his posterior tibial artery. He has been managed with daily Lovenox injections and recently required balloon angioplasty of the posterior tibial artery due to a new stenosis seen distal to the bypass. On the day of surgery, he presented to the emergency room with several hours of pain and coldness of the right foot. Duplex evaluation confirmed occlusion of the bypass graft. At surgery, there was a small amount of clot retrieved from the distal vein and occlusive clot from the proximal end of the graft. Angiography revealed a patent inflow via the right iliofemoral bypass and no evidence of stenosis at the iliac artery anastomosis. Distal portion of the vein graft had several areas of slight narrowing but no severe stenoses. The posterior tibial artery was patent to the ankle, and there was an area of severe stenosis in the inframalleolar second of the posterior tibial artery. The plantar vessels were patent. OPERATIVE PROCEDURE: The patient was brought into the operating room from the emergency room, and general anesthesia was induced. The right leg, abdomen, chest were prepped with ChloraPrep and sterilely draped. A time-out was performed. Incision was made over the vein bypass through the scar in the upper thigh and carried into subcutaneous tissues. The vein was then dissected free and secured with Vessel Loops. The patient was given a bolus of heparin. The vein was opened with a transverse venotomy. A No. 3 and a No. 4 Johnnie catheter were then used to remove thrombus from the distal portion of the vein graft. Only small amounts were returned, and there was return of arterial back bleeding. A catheter was introduced into the bypass graft and angiography performed of dilute contrast of the vein in the distal runoff with the above-noted findings. A wire was then advanced distally into the posterior tibial artery through the area of stenosis and a 2.5-mm x 40-mm balloon used to dilate the distal posterior tibial artery using a pressure insufflator. Following angioplasty, repeat imaging showed that there was an area of spasm in the treated vessel with more severe stenosis seen. Then 2 mg of tPA and 200 mcg of nitroglycerin were then infused through a catheter into this posterior tibial artery. The balloon was reintroduced and repeat angiography performed with a 2-minute inflation. Following this, the artery was now patent with no evidence of residual stenosis and intact runoff into the distal foot. The bypass graft was filled with heparin solution and was occluded with a small bulldog clamp. Thrombectomy of the proximal vein into the iliofemoral bypass was then performed with No. 4 Johnnie catheter with return of the occluding thrombus from the proximal anastomosis and return of arterial inflow back bleeding. Retrograde angiography was performed, which showed patent vessel and graft up to the abdominal aorta. The lumen was filled with heparin solution and was occluded with a small bulldog clamp. The tenotomy was then closed with a running suture of 6-0 Prolene. The graft was released. There was good flow and a good Doppler signal at the ankle and the posterior tibial artery. Surgicel was applied to the suture line, and when hemostasis was achieved, the wound was closed with interrupted suture of 3-0 Vicryl and skin levy. A sterile dressing was applied, and the patient was taken to the recovery room in stable condition. DANIELLE LEUNG M.D. PATRICIA/[id number]
[2018-06-26] MEDS: HEPARIN - 25,000 UNIT in SODIUM CHLORIDE 495 ML IV SCH (16:33)
[2018-06-26] MEDS: GABAPENTIN 300 MG CAPSULE (FP) PO SCH ×2 (16:33→21:27)
[2018-06-26] MEDS: ASPIRIN 81 MG CHEWABLE TABLETS PO SCH (17:00)
--- NOTE | 2018-06-26 21:42 | PN ---
Progress Note, Physician Chief Complaint: s/p right lower extremity angiogram/angioplasty/thrombectomy History of Present Illness: previous notes and events reviewed awake and alert NAD denies complaints of pain, chest pain, SOB POD #1 - Current Medication List Current Medications: Active Medications Aspirin (Asa -) 81 mg PO DAILY [facility] Last Admin: 06/26/18 17:00 Dose: 81 mg Atorvastatin Calcium (Lipitor -) 10 mg PO HS GERALD Last Admin: 06/26/18 21:26 Dose: 10 mg Gabapentin (Neurontin -) 300 mg PO TID [facility] Last Admin: 06/26/18 21:27 Dose: 300 mg Heparin Sodium (Porcine) (Heparin -) 1,000 unit IVPUSH PRN PRN PRN Reason: Heparin Last Admin: 06/26/18 16:34 Dose: 1,000 unit Heparin Sodium (Porcine) (Heparin -) 5,000 unit IVPUSH PRN PRN PRN Reason: Heparin Heparin Sodium (Porcine) 25, (000 unit/ Sodium Chloride) 500 mls @ 20 mls/hr IV TITR GERALD; Protocol Last Admin: 06/26/18 16:33 Dose: Not Given Ondansetron HCl (Zofran Injection) 4 mg IVPUSH Q6H PRN PRN Reason: NAUSEA AND/OR VOMITING - Objective Vital Signs: Vital Signs Temperature 97.9 F 06/26/18 20:00 Pulse Rate 73 06/26/18 20:00 Respiratory Rate 17 06/26/18 20:00 Blood Pressure 111/69 06/26/18 20:00 O2 Sat by Pulse Oximetry (%) 96 06/26/18 16:39 Constitutional: Yes: No Distress, Calm Eyes: Yes: Conjunctiva Clear Neck: Yes: Supple Cardiovascular: Yes: Regular Rate and Rhythm Respiratory: Yes: Regular, CTA Bilaterally Gastrointestinal: Yes: Normal Bowel Sounds, Soft Musculoskeletal: Yes: WNL Extremities: Yes: Other (L foot cool to touch) Edema: No Integumentary: Yes: WNL Wound/Incision: Yes: Dressing Dry and Intact Neurological: Yes: Alert, Oriented Psychiatric: Yes: Alert, Oriented Labs: CBC, BMP 06/26/18 05:30 06/26/18 05:30 INR, PTT INR 1.06 (0.83-1.09) 06/25/18 01:20 Freida Gabriel - Last Filed: 06/26/18 21:59> - Current Medication List Current Medications: Active Medications Aspirin (Asa -) 81 mg PO DAILY [facility] Last Admin: 06/26/18 17:00 Dose: 81 mg Atorvastatin Calcium (Lipitor -) 10 mg PO HS [facility] Last Admin: 06/26/18 21:26 Dose: 10 mg Gabapentin (Neurontin -) 300 mg PO TID [facility] Last Admin: 06/27/18 06:13 Dose: 300 mg Heparin Sodium (Porcine) (Heparin -) 1,000 unit IVPUSH PRN PRN PRN Reason: Heparin Last Admin: 06/26/18 16:34 Dose: 1,000 unit Heparin Sodium (Porcine) (Heparin -) 5,000 unit IVPUSH PRN PRN PRN Reason: Heparin Heparin Sodium (Porcine) 25, (000 unit/ Sodium Chloride) 500 mls @ 20 mls/hr IV TITR GERALD; Protocol Last Admin: 06/26/18 16:33 Dose: Not Given Ondansetron HCl (Zofran Injection) 4 mg IVPUSH Q6H PRN PRN Reason: NAUSEA AND/OR VOMITING - Objective Vital Signs: Vital Signs Temperature 97.8 F 06/27/18 06:00 Pulse Rate 73 06/27/18 08:00 Respiratory Rate 18 06/27/18 08:00 Blood Pressure 114/77 06/27/18 08:00 O2 Sat by Pulse Oximetry (%) 97 06/26/18 22:00 Labs: CBC, BMP 06/27/18 05:30 06/27/18 05:30 INR, PTT INR 1.06 (0.83-1.09) 06/25/18 01:20 <Dariana Cyr - Last Filed: 06/27/18 08:33> Problem List - Problems (1) Arterial occlusion, lower extremity Code(s): I70.209 - UNSP ATHSCL [place] ARTERIES OF EXTREMITIES, UNSP EXTREMITY (2) HLD (hyperlipidemia) Code(s): E78.5 - HYPERLIPIDEMIA, UNSPECIFIED (3) Arterial occlusion Code(s): I70.90 - UNSPECIFIED ATHEROSCLEROSIS <Freida Sibley - Last Filed: 06/26/18 21:59> - Problems (1) Arterial occlusion, lower extremity Code(s): I70.209 - UNSP ATHSCL [place] ARTERIES OF EXTREMITIES, UNSP EXTREMITY (2) Arterial occlusion Code(s): I70.90 - UNSPECIFIED ATHEROSCLEROSIS (3) HLD (hyperlipidemia) Code(s): E78.5 - HYPERLIPIDEMIA, UNSPECIFIED (4) Occlusion of artery of leg Code(s): I70.209 - UNSP ATHSCL [place] ARTERIES OF EXTREMITIES, UNSP EXTREMITY <Dariana Cyr - Last Filed: 06/27/18 08:33> Assessment/Plan -cont with Heparin drip, keep therapeutic, monitor PTT -pain management -pulse checks -monitor incision site -cont to monitor H/H -O2 via NC PRN, keep SpO2 >90% -regular diet <Freida Sibley - Last Filed: 06/26/18 21:59> I HAVE SEEN AND EXAMINED THE ABOVE PATIENT AND AGREE WITH THE ABOVE NOTE <Dariana Cyr - Last Filed: 06/27/18 08:33>
[2018-06-26] MEDS ORDERED: ATORVASTATIN CA 10 MG TABLET (FP) PO SCH (22:00)
[2018-06-27] MEDS: GABAPENTIN 300 MG CAPSULE (FP) PO SCH (06:13)
[2018-06-27 06:54] LABS: BASO % 0.9 % (0-2.0); EOS % 1.4 % (0-4.5); HEMATOCRIT 42.3 % (35.4-49); HEMOGLOBIN 13.5 GM/dL (11.7-16.9); LYMPH % 44.3 % (8-40); MCH 29.3 pg (25.7-33.7); MEAN CELL VOLUME 91.7 fl (80-96); MEAN PLT VOLUME 7.5 fl (7.5-11.1); MONO % 8.3 % (3.8-10.2); NEUT % 45.1 % (42.8-82.8); PLATELET COUNT 325 K/MM3 (134-434); RBC 4.62 M/mm3 (4.00-5.60); RDW 16.5 % (11.9-15.9); WHITE BLOOD COUNT 9.7 K/mm3 (4.0-10.0)
[2018-06-27 07:05] LABS: ALBUMIN 2.9 g/dl (3.4-5.0); ALK PHOS 73 U/L (45-117); ANION GAP 5 MMOL/L (8-16); BILIRUBIN,TOTAL 0.2 mg/dL (0.2-1); BLOOD UREA NITROGEN 15 mg/dL (7-18); CHLORIDE 105 mmol/L (98-107); CO2 29 mmol/L (21-32); GLUCOSE,RANDOM 86 mg/dL (74-106); POTASSIUM 4.2 mmol/L (3.5-5.1); SGOT/AST 11 U/L (15-37); SGPT/ALT 22 U/L (13-61); SODIUM 139 mmol/L (136-145); TOT PROT 6.5 g/dl (6.4-8.2)
[2018-06-27] MEDS ORDERED: ENOXAPARIN NA (PORCINE) 80 MG/0.8 ML DISP.SYRIN SQ SCH (10:00)
--- NOTE | 2018-06-27 10:03 | PN ---
Progress Note (short form) - Note Progress Note: VSS Right foot pain at baseline, no left foot pain or numbness Right foot warm, PT doppler Left foot warm, 1+ DP with doppler Stable Change to Lovenox, may be discharged Aspirin and Lovenox I will see in 1 week in my office. Problem List - Problems (1) Arterial occlusion, lower extremity Code(s): I70.209 - UNSP ATHSCL [place] ARTERIES OF EXTREMITIES, UNSP EXTREMITY
--- NOTE | 2018-06-27 10:07 | DS ---
Physical Examination Vital Signs: Vital Signs Temperature 97.8 F 06/27/18 06:00 Pulse Rate 73 06/27/18 08:00 Respiratory Rate 18 06/27/18 08:00 Blood Pressure 114/77 06/27/18 08:00 O2 Sat by Pulse Oximetry (%) 97 06/26/18 22:00 Findings/Remarks: Presented with cold right foot and occluded right ilio-tibial bypass. Open thrombectomy and angioplasty of ART LIBRARIAN performed with caodaism of flow. IV Heparin drip post-op with resumption of Lovenox 80 mg BID at discharge. Constitutional: Yes: No Distress Eyes: Yes: WNL HENT: Yes: WNL Neck: Yes: Supple Cardiovascular: Yes: Regular Rate and Rhythm Respiratory: Yes: Regular Gastrointestinal: Yes: Soft Edema: Yes Edema: LLE: 1+, RLE: 1+ Peripheral Pulses WNL: No (PT doppler right 2+, DP left 1+) Wound/Incision: Yes: Clean/Dry Labs: CBC, BMP 06/27/18 05:30 06/27/18 05:30 Discharge Summary Reason For Visit: OCCLUSION OF ARTERY OF LOWER EXTREMITY Current Active Problems Arterial occlusion, lower extremity (Acute) Procedures: Principal: Thrombectomy right leg bypass Condition: Stable - Instructions Diet, Activity, Other Instructions: Resume all medication No prolonged sitting Referrals: Lazaro Anand MD [Primary Care Provider] - Carlos Stoner MD [Staff Physician] - 2 Weeks Disposition: HOME - Home Medications Comprehensive Discharge Medication List: Ambulatory Orders Aspirin [ASA -] 81 mg PO DAILY #30 tab.chew 12/02/17 Enoxaparin Sodium [Lovenox] 80 mg SQ BID #60 syringe 12/02/17 Gabapentin [Neurontin] 300 mg PO TID 03/12/18 Simvastatin 20 mg PO HS 03/12/18
[2018-06-27] MEDS: ASPIRIN 81 MG CHEWABLE TABLETS PO SCH (10:26)
[2018-06-27] MEDS: HEPARIN - 25,000 UNIT in SODIUM CHLORIDE 495 ML IV SCH (10:28)
[2018-06-27 10:30] VITALS: BP 127/70; PULSE 79; TEMP 98.5
== END 2018-06-27 14:22 | disposition home or self-care (01) | DRG 254 ==
LOC: JER 23:01 → JERBED 06-25 03:14 → JICU 06-25 08:13
PROVIDERS: ADMIT Surgery; ATTEND Surgery
PROC: 047 Lower Arteries, Dilation (ICD-10-PCS; 2018-06-25)
PROC: 3E05017 Introduction of Other Thrombolytic into Peripheral Artery, Open Approach (ICD-10-PCS; 2018-06-25)
PROC: B40DYZZ Plain Radiography of Aorta and Bilateral Lower Extremity Arteries using Other Contrast (ICD-10-PCS; 2018-06-25)
PROC: 04CK0ZZ Extirpation of Matter from Right Femoral Artery, Open Approach (ICD-10-PCS; principal; 2018-06-25 03:49)
DX: I74.3 Embolism and thrombosis of arteries of the lower extremities (principal); I70.209 Unspecified atherosclerosis of native arteries of extremities, unspecified extremity; E78.5 Hyperlipidemia, unspecified; I10 Essential (primary) hypertension
CPT/HCPCS: 36415; 76000-TC-FY; 80053; 83735; 84100; 85025; 85027; 85610; 85730; 86850; 86900; 86901; 93005; 93010; 93925-TC; 94010; 94760; 99285-25; J1644; J2997

== ENCOUNTER 2018-06-28 23:29 | Inpatient (IN) | payer BC ==
--- NOTE | 2018-06-29 00:11 | PDOC ---
History of Present Illness - General History Source: Patient Exam Limitations: No Limitations - History of Present Illness Initial Comments: 06/29/18 01:14 The patient is a 57 year old male with a past medical history of HLD and peripheral artery disease here today for evaluation of coldness of the lower extremities. Patient reports that his lower extremities are cold and that he has pain in his right lower extremity when he walks. He reports being discharged from the hospital recently and that his current symptoms are similar to the ones prior to his discharge. Patient denies headache, lightheadedness. Denies fever, chills. Denies chest pain, shortness of breath. Denies nausea, vomiting, diarrhea, abdominal pain. Allergies: Penicillins Social history: Patient reports being a former long time tobacco smoker but has quit. Surgical history: multiple thrombectomies and occlusions PCP: Lazaro Anand <Nixon Bai - Last Filed: 06/29/18 01:14> <Sophia Kuo - Last Filed: 06/29/18 06:10> - General Chief Complaint: Pain, Acute Stated Complaint: LEG PAIN Time Seen by Provider: 06/28/18 23:59 Past History <Nixon Bai - Last Filed: 06/29/18 01:14> - Past Medical History Anemia: No Asthma: No Cancer: No Cardiac Disorders: No CVA: No COPD: No CHF: No DVT: Yes Dementia: No Diabetes: No GI Disorders: No Disorders: No HTN: Yes Hypercholesterolemia: Yes Kidney Stones: Yes Liver Disease: No Seizures: No Thyroid Disease: No - Surgical History Abdominal Surgery: No Appendectomy: No Cardiac Surgery: No Cholecystectomy: No Lung Surgery: No Neurologic Surgery: No Orthopedic Surgery: No - Suicide/Smoking/Psychosocial Hx Smoking Status: Yes Smoking History: Former smoker Have you smoked in the past 12 months: No Number of Cigarettes Smoked Daily: 0 If you are a former smoker, when did you quit?: more than one year ago Cigars Per Day: 5 Information on smoking cessation initiated: No 'Breaking Loose' booklet given: 03/13/18 Hx Alcohol Use: No Drug/Substance Use Hx: No Substance Use Type: None Hx Substance Use Treatment: No <Sophia Kuo - Last Filed: 06/29/18 06:10> - Past Medical History Allergies/Adverse Reactions: Allergies Allergy/AdvReac Type Severity Reaction Status Date / Time Penicillins Allergy Verified 06/28/18 23:37 Home Medications: Ambulatory Orders Aspirin [ASA -] 81 mg PO DAILY #30 tab.chew 12/02/17 Enoxaparin Sodium [Lovenox] 80 mg SQ BID #60 syringe 12/02/17 Gabapentin [Neurontin] 300 mg PO TID 03/12/18 Simvastatin 20 mg PO HS 03/12/18 Review of Systems - Review of Systems Able to Perform ROS?: Yes Comments:: 06/29/18 01:14 GENERAL/CONSTITUTIONAL: No fever or chills. No weakness. HEAD, EYES, EARS, NOSE AND THROAT: No change in vision. No ear pain or discharge. No sore throat. CARDIOVASCULAR: No chest pain or shortness of breath. RESPIRATORY: No cough, wheezing, or hemoptysis. GASTROINTESTINAL: No nausea, vomiting, diarrhea or constipation. GENITOURINARY: No dysuria, frequency, or change in urination. MUSCULOSKELETAL: +coldness of bilateral lower extremities. +tenderness of right lower extremities. No joint or muscle swelling or pain. No neck or back pain. SKIN: No rash NEUROLOGIC: No headache, vertigo, loss of consciousness, or change in strength/ sensation. ENDOCRINE: No increased thirst. No abnormal weight change. HEMATOLOGIC/LYMPHATIC: No anemia, easy bleeding, or history of blood clots. ALLERGIC/IMMUNOLOGIC: No hives or skin allergy. <Nixon Bai - Last Filed: 06/29/18 01:14> *Physical Exam - Vital Signs Last Vital Signs Temp Pulse Resp BP Pulse Ox 98.3 F 106 H 18 142/76 97 06/28/18 23:32 06/28/18 23:32 06/28/18 23:32 06/28/18 23:32 06/28/18 23:32 - Physical Exam Comments: 06/29/18 01:15 GENERAL: Awake, alert, and fully oriented, in no acute distress HEAD: No signs of trauma EYES: PERRLA, EOMI, sclera anicteric, conjunctiva clear ENT: Auricles normal inspection, hearing grossly normal, nares patent, oropharynx clear without exudates. Moist mucosa NECK: Normal ROM, supple, no lymphadenopathy, JVD, or masses LUNGS: Breath sounds equal, clear to auscultation bilaterally. No wheezes, and no crackles HEART: Regular rate and rhythm, normal S1 and S2, no murmurs, rubs or gallops ABDOMEN: Soft, nontender, normoactive bowel sounds. No guarding, no rebound. No masses EXTREMITIES: +coldness to bilateral lower extremities. +right lower extremity tenderness to palpitation. +unable to find DP or PT pulse. +unable to find pulse with doppler. Normal range of motion, no edema. No clubbing or cyanosis. No cords, erythema NEUROLOGICAL: Cranial nerves II through XII grossly intact. Normal speech, normal gait SKIN: Warm, Dry, normal turgor, no rashes or lesions noted. <Nixon Bai - Last Filed: 06/29/18 01:14> - Vital Signs Last Vital Signs Temp Pulse Resp BP Pulse Ox 98.3 F 106 H 18 142/76 97 06/28/18 23:32 06/28/18 23:32 06/28/18 23:32 06/28/18 23:32 06/28/18 23:32 <Sophia Kuo - Last Filed: 06/29/18 06:10> Moderate Sedation - Procedure Monitoring Vital Signs: Procedure Monitoring Vital Signs Temperature 98.3 F 06/28/18 23:32 Pulse Rate 106 H 06/28/18 23:32 Respiratory Rate 18 06/28/18 23:32 Blood Pressure 142/76 06/28/18 23:32 O2 Sat by Pulse Oximetry (%) 97 06/28/18 23:32 <Nixon Bai - Last Filed: 06/29/18 01:14> - Procedure Monitoring Vital Signs: Procedure Monitoring Vital Signs Temperature 98.3 F 06/28/18 23:32 Pulse Rate 106 H 06/28/18 23:32 Respiratory Rate 18 06/28/18 23:32 Blood Pressure 142/76 06/28/18 23:32 O2 Sat by Pulse Oximetry (%) 97 06/28/18 23:32 <Sophia Kuo - Last Filed: 06/29/18 06:10> Heart Score/ECG Review - ECG Intrepretation Rhythm: Regular Rhythm - [place]: Normal (sinus tachy borderline at 105) - P and MD Prominent R with upright T in V1 (true posterior PR): No Delta Wave(s) Present: No WPW: No - QRS Poor R Wave Progression: No Q Wave Present: No - ST and T Early Repolarization: No Non Specific ST-T Wave changes: No Flattened T Waves: No Prolonged Q-T Interval: No - ECG Impressions Normal ECG: No Non-specific ST Elevation: No Ischemic Changes: No Tachycardia: Sinus Torsades anjelica Pointes: No WPW: No <Sophia Kuo - Last Filed: 06/29/18 06:10> ED Treatment Course - LABORATORY CBC & Chemistry Diagram: 06/29/18 00:45 06/29/18 00:45 - ADDITIONAL ORDERS Additional order review: Laboratory Results 06/29/18 00:45 PT with INR 12.60 INR 1.07 06/29/18 00:45 RBC 4.99 MCV 90.0 MCHC 34.2 RDW 16.0 H MPV 7.4 L Neutrophils % 69.5 D Lymphocytes % 20.6 D Monocytes % 7.8 Eosinophils % 1.1 Basophils % 1.0 <Nixon Bai - Last Filed: 06/29/18 01:14> - LABORATORY CBC & Chemistry Diagram: 06/29/18 00:45 06/29/18 00:45 <Sophia Kuo - Last Filed: 06/29/18 06:10> Medical Decision Making - Medical Decision Making 06/29/18 01:34 Dr. Stoner is aware of the cold leg; he agrees with the heparin drip and he will take pt to OR tomorrow. 06/29/18 02:23 Patient Name: ABIGAIL PERLA THIS IS A PRELIMINARY REPORT FROM [facility] [employer] [facility] DATE OF SERVICE: 2018-06-29 01:27:37 IMAGES: 34 EXAM: Arterial Duplex lower extremity, unilateral [facility], superficial femoral, popliteal or posterior tibial arteries. Findings compatible with complete occlusion. THIS DOCUMENT HAS BEEN ELECTRONICALLY SIGNED 06/29/18 06:10 Pt is still awaiting a bed. <Sophia Kuo - Last Filed: 06/29/18 06:10> *DC/Admit/Observation/Transfer - Attestations Scribe Attestion: 06/29/18 01:15 Documentation prepared by JOVANNA Hernández, acting as medical surgical tech for Sophia Kuo MD. <Nixon Bai - Last Filed: 06/29/18 01:14> - Discharge Dispostion Decision to Admit order: Yes <Sophia Kuo - Last Filed: 06/29/18 06:10> Diagnosis at time of Disposition: Arterial occlusion, lower extremity - Discharge Dispostion Condition at time of disposition: Guarded
[2018-06-29] MEDS ORDERED: HEPARIN NA (PORCINE) 5,000 UNITS/ML 1ML VIAL IVPUSH PRN ×5 (00:26→22:26)
[2018-06-29] MEDS ORDERED: HEPARIN INFUSION - 25,000 UNITS/500 ML INFUS.BAG IVPB SCH (00:30)
[2018-06-29] MEDS ORDERED: HEPARIN INFUSION - 25,000 UNITS/500 ML INFUS.BAG IVPB ONE ×2 (00:43→23:15)
[2018-06-29 00:53] LABS: EOS % 1.1 % (0-4.5); HEMATOCRIT 44.9 % (35.4-49); HEMOGLOBIN 15.3 GM/dL (11.7-16.9); LYMPH % 20.6 % (8-40); MCH 30.7 pg (25.7-33.7); MCHC 34.2 g/dl (32.0-35.9); MEAN PLT VOLUME 7.4 fl (7.5-11.1); MONO % 7.8 % (3.8-10.2); NEUT % 69.5 % (42.8-82.8); PLATELET COUNT 434 K/MM3 (134-434); RBC 4.99 M/mm3 (4.00-5.60); WHITE BLOOD COUNT 13.1 K/mm3 (4.0-10.0)
[2018-06-29 01:07] LABS: INR 1.07 (0.83-1.09); PROTHROMBIN TIME (PATIENT) 12.6 SEC (9.7-13.0)
[2018-06-29 01:19] LABS: ALBUMIN 3.4 g/dl (3.4-5.0); ALK PHOS 95 U/L (45-117); ANION GAP 9 MMOL/L (8-16); BILIRUBIN,TOTAL 0.1 mg/dL (0.2-1); BLOOD UREA NITROGEN 24 mg/dL (7-18); CALCIUM 9.6 mg/dL (8.5-10.1); CHLORIDE 103 mmol/L (98-107); CO2 25 mmol/L (21-32); CREATININE 1.1 mg/dL (0.55-1.3); GLUCOSE,RANDOM 104 mg/dL (74-106); POTASSIUM 4.4 mmol/L (3.5-5.1); SGOT/AST 17 U/L (15-37); SGPT/ALT 30 U/L (13-61); SODIUM 137 mmol/L (136-145); TOT PROT 7.5 g/dl (6.4-8.2)
--- NOTE | 2018-06-29 02:37 | HP ---
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 Stoner, returns to hospital with right leg pain since 5pm 06/28. Pain started suddenly and is worse with walking. He was previously d/ c with lovenox sc. Dr. Stoner was called from ER and is aware. ER course was notable for: (1) heparin drip (2) morphine IV (3) Recent Travel: no PAST MEDICAL HISTORY: ex smoker, PVD PAST SURGICAL HISTORY: multiple vascular surgery on lower extremities for PVD Social History: Smokin pack year smoker, quit one year ago Alcohol: no Drugs: no Family History: Allergies Penicillins Allergy (Verified 06/28/18 23:37) HOME MEDICATIONS: Home Medications Medication Instructions Recorded Aspirin [ASA -] 81 mg PO DAILY #30 tab.chew 12/02/17 Enoxaparin Sodium [Lovenox] 80 mg SQ BID #60 syringe 12/02/17 Gabapentin [Neurontin] 300 mg PO TID 03/12/18 Simvastatin 20 mg PO HS 03/12/18 REVIEW OF SYSTEMS CONSTITUTIONAL: Absent: fever, chills, diaphoresis, generalized weakness, malaise, loss of appetite, weight change HEENT: Absent: rhinorrhea, nasal congestion, throat pain, throat swelling, difficulty swallowing, mouth swelling, ear pain, eye pain, visual changes CARDIOVASCULAR: Absent: chest pain, syncope, palpitations, irregular heart rate, lightheadedness , peripheral edema RESPIRATORY: Absent: cough, shortness of breath, dyspnea with exertion, orthopnea, wheezing, stridor, hemoptysis GASTROINTESTINAL: Absent: abdominal pain, abdominal distension, nausea, vomiting, diarrhea, constipation, melena, hematochezia GENITOURINARY: Absent: dysuria, frequency, urgency, hesitancy, hematuria, flank pain, genital pain MUSCULOSKELETAL: present- right leg pain SKIN: Absent: rash, itching, pallor present- right leg pallor HEMATOLOGIC/IMMUNOLOGIC: Absent: easy bleeding, easy bruising, lymphadenopathy, frequent infections ENDOCRINE: Absent: unexplained weight gain, unexplained weight loss, heat intolerance, cold intolerance NEUROLOGIC: Absent: headache, focal weakness or paresthesias, dizziness, unsteady gait, seizure, mental status changes, bladder or bowel incontinence PSYCHIATRIC: Absent: anxiety, depression, suicidal or homicidal ideation, hallucinations. PHYSICAL EXAMINATION Vital Signs - 24 hr 06/28/18 23:32 Temperature 98.3 F Pulse Rate 106 H Respiratory 18 Rate Blood Pressure 142/76 O2 Sat by Pulse 97 Oximetry (%) GENERAL: Awake, alert, and fully oriented, in no acute distress. HEAD: Normal with no signs of trauma. EYES: Pupils equal, round and reactive to light, extraocular movements intact, sclera anicteric, conjunctiva clear. No lid lag. EARS, NOSE, THROAT: Ears normal, nares patent, oropharynx clear without exudates. Moist mucous membranes. NECK: Normal range of motion, supple without lymphadenopathy, JVD, or masses. LUNGS: Breath sounds equal, clear to auscultation bilaterally. No wheezes, and no crackles. No accessory muscle use. HEART: Regular rate and rhythm, normal S1 and S2 without murmur, rub or gallop. ABDOMEN: Soft, nontender, not distended, normoactive bowel sounds, no guarding, no rebound, no masses. No hepatomegaly or splenomegaly. MUSCULOSKELETAL: Normal range of motion at all joints. No bony deformities or tenderness. No CVA tenderness. UPPER EXTREMITIES: 2+ pulses, warm, well-perfused. No cyanosis. No clubbing. No peripheral edema. LOWER EXTREMITIES: very faint DP pulse on right foot NEUROLOGICAL: Cranial nerves II-XII intact. Normal speech. Normal gait. PSYCHIATRIC: Cooperative. Good eye contact. Appropriate mood and affect. SKIN: right leg pale and cool to touch, scar s/p surgeries on both lower ext Laboratory Results - last 24 hr 06/29/18 06/29/18 06/29/18 00:45 00:45 00:45 WBC 13.1 H RBC 4.99 Hgb 15.3 Hct 44.9 MCV 90.0 MCH 30.7 MCHC 34.2 RDW 16.0 H Plt Count 434 D MPV 7.4 L Absolute Neuts (auto) 9.1 H Neutrophils % 69.5 D Lymphocytes % 20.6 D Monocytes % 7.8 Eosinophils % 1.1 Basophils % 1.0 Nucleated RBC % 0 PT with INR 12.60 INR 1.07 Sodium 137 Potassium 4.4 Chloride 103 Carbon Dioxide 25 Anion Gap 9 BUN 24 H Creatinine 1.1 Creat Clearance w eGFR > 60 Random Glucose 104 Calcium 9.6 Total Bilirubin 0.1 L AST 17 ALT 30 Alkaline Phosphatase 95 Total Protein 7.5 Albumin 3.4 ASSESSMENT/PLAN: 57yo man with PVD and likely acute occlusion of artery of right leg. Leg is cool to touch. Dr. Vargas aware. -admit to med/surg -heparin drip -morphine IV prn for pain -npo -bed rest -vascular consult -right lower ext arterial duplex -lactate level -statin Visit type - Emergency Visit Emergency Visit: Yes ED Registration Date: 06/29/18 Care time: The patient presented to the Emergency Department on the above date and was hospitalized for further evaluation of their emergent condition. - New Patient This patient is new to me today: Yes Date on this admission: 06/29/18 - Critical Care Critical Care patient: No
[2018-06-29] MEDS ORDERED: morphine CARPU-JECT 2 MG/1 ML DISP.SYRIN IVPUSH ONE ×2 (02:43→06:28)
[2018-06-29] MEDS ORDERED: MORPHINE SULFATE 2 MG/ML VIAL IVPUSH ONE (02:43)
[2018-06-29] MEDS ORDERED: SODIUM CHLORIDE 1,000 ML IV SCH (02:45)
[2018-06-29] MEDS ORDERED: MORPHINE SULFATE 2 MG/ML VIAL ONE ×4 (03:01→16:11)
[2018-06-29 05:09] LABS: ERYTHROCYTE SEDIMENTATION RATE 54 mm/hr (0-20)
[2018-06-29] MEDS ORDERED: GABAPENTIN 100 MG CAPSULE (FP) ONE (05:59)
[2018-06-29] MEDS: GABAPENTIN 300 MG CAPSULE (FP) PO SCH ×2 (06:26→14:01)
[2018-06-29] MEDS: MORPHINE SULFATE 2 MG/ML VIAL IVPUSH PRN ×3 (06:28→16:14)
--- NOTE | 2018-06-29 07:44 | PN ---
Physical Exam: SUBJECTIVE: Patient seen and examined OBJECTIVE: Vital Signs Period Temp Pulse Resp BP Sys/White Pulse Ox Last 24 Hr 98.3 F 92-106 18-20 123-142/76-93 97-97 GENERAL: The patient is awake, alert, and fully oriented, in no acute distress. HEAD: Normal with no signs of trauma. EYES: PERRL, extraocular movements intact, sclera anicteric, conjunctiva clear. No ptosis. ENT: Ears normal, nares patent, oropharynx clear without exudates, moist mucous membranes. NECK: Trachea midline, full range of motion, supple. LUNGS: Breath sounds equal, clear to auscultation bilaterally, no wheezes, no crackles, no accessory muscle use. HEART: Regular rate and rhythm, S1, S2 without murmur, rub or gallop. ABDOMEN: Soft, nontender, nondistended, normoactive bowel sounds, no guarding, no rebound, no hepatosplenomegaly, no masses. EXTREMITIES: 2+ pulses, warm, well-perfused, no edema. NEUROLOGICAL: Cranial nerves II through XII grossly intact. Normal speech, gait not observed. PSYCH: Normal mood, normal affect. SKIN: Warm, dry, normal turgor, no rashes or lesions noted Laboratory Results - last 24 hr 06/29/18 06/29/18 06/29/18 00:45 00:45 00:45 WBC 13.1 H RBC 4.99 Hgb 15.3 Hct 44.9 MCV 90.0 MCH 30.7 MCHC 34.2 RDW 16.0 H Plt Count 434 D MPV 7.4 L Absolute Neuts (auto) 9.1 H Neutrophils % 69.5 D Lymphocytes % 20.6 D Monocytes % 7.8 Eosinophils % 1.1 Basophils % 1.0 Nucleated RBC % 0 ESR 54 H PT with INR 12.60 INR 1.07 PTT (Actin FS) Sodium 137 Potassium 4.4 Chloride 103 Carbon Dioxide 25 Anion Gap 9 BUN 24 H Creatinine 1.1 Creat Clearance w eGFR > 60 Random Glucose 104 Calcium 9.6 Total Bilirubin 0.1 L AST 17 ALT 30 Alkaline Phosphatase 95 Total Protein 7.5 Albumin 3.4 06/29/18 03:31 WBC RBC Hgb Hct MCV MCH MCHC RDW Plt Count MPV Absolute Neuts (auto) Neutrophils % Lymphocytes % Monocytes % Eosinophils % Basophils % Nucleated RBC % ESR PT with INR INR PTT (Actin FS) 46.8 H Sodium Potassium Chloride Carbon Dioxide Anion Gap BUN Creatinine Creat Clearance w eGFR Random Glucose Calcium Total Bilirubin AST ALT Alkaline Phosphatase Total Protein Albumin Active Medications Generic Name Dose Route Start Last Admin Trade Name Freq PRN Reason Stop Dose Admin Atorvastatin Calcium 10 mg 06/29/18 22:00 Lipitor - PO HS GERALD Gabapentin 300 mg 06/29/18 06:00 06/29/18 06:26 Neurontin - PO 300 mg TID GERALD Administration Heparin Sodium (Porcine) 1,000 unit 06/29/18 00:26 Heparin - IVPUSH PRN PRN Heparin Heparin Sodium (Porcine) 5,000 unit 06/29/18 00:26 Heparin - IVPUSH PRN PRN Heparin Heparin Sodium/Dextrose 25,000 units in 500 mls @ 20 mls/hr 06/29/18 00:30 00:52 Heparin Infusion - IVPB 1,000 units/hr TITR GERALD 20 mls/hr Administration Protocol 1,000 UNITS/HR Sodium Chloride 1,000 mls @ 75 mls/hr 06/29/18 02:45 06/29/18 03:11 Normal Saline - IV 75 mls/hr ASDIR GERALD Administration Morphine Sulfate 2 mg 06/29/18 02:42 Morphine Sulfate IVPUSH Q4H PRN PAIN LEVEL 6-10 ASSESSMENT/PLAN:
--- NOTE | 2018-06-29 08:42 | CONSULT ---
Consult Reason for Consultation:: Cold right foot - History of Present Illness History of Present Illness: 57 year old man recently discharged following thrombectomy of right ilio-tibial bypass. He was on Lovenox 80 mg BID but developed recurrence of cold right foot. 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 His past history included:Aortobifemoral bypass Graft thrombosis 1 year ago. Right leg arterial occlusion requiring bypass x 2 with recurrent thrombosis despite anticoagulation with Coumadin, Eliquis and Lovenox. Hematology evaluation has nopt revealed any underlying coagulopathy - History Source History Provided By: Patient, Medical Record - Past Medical History Cardio/Vascular: Yes: HTN, Hyperlipdemia, Other (peripheral arterial disease) Renal/: Yes: Renal Calculi - Past Surgical History Past Surgical History: Yes: Bypass - Alcohol/Substance Use Hx Alcohol Use: No History of Substance Use: reports: None - Smoking History Smoking history: Former smoker Have you smoked in the past 12 months: No Aproximately how many cigarettes per day: 0 If you are a former smoker, when did you quit?: more than one year ago - Social History Usual Living Arrangement: Halfway ADL: Independent History of Recent Travel: No Home Medications - Allergies Allergies/Adverse Reactions: Allergies Allergy/AdvReac Type Severity Reaction Status Date / Time Penicillins Allergy Verified 06/28/18 23:37 - Home Medications Home Medications: Ambulatory Orders Aspirin [ASA -] 81 mg PO DAILY #30 tab.chew 12/02/17 Enoxaparin Sodium [Lovenox] 80 mg SQ BID #60 syringe 12/02/17 Gabapentin [Neurontin] 300 mg PO TID 03/12/18 Simvastatin 20 mg PO HS 03/12/18 Physical Exam Vital Signs: Vital Signs Temperature 98.3 F 06/28/18 23:32 Pulse Rate 92 H 06/29/18 06:29 Respiratory Rate 20 06/29/18 06:29 Blood Pressure 123/93 06/29/18 06:29 O2 Sat by Pulse Oximetry (%) 97 06/29/18 06:29 Constitutional: Yes: No Distress Gastrointestinal: Yes: Soft Extremities: Yes: Cold (right foot with delayed capillary refill) Peripheral Pulses WNL: No (Absent pedal pulses) Labs: CBC, BMP 06/29/18 00:45 06/29/18 00:45 Problem List - Problems (1) Arterial occlusion, lower extremity Assessment/Plan: 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 recent angiogram showed patent inflow and out flow vessels after thrombectomy. Currently on IV Heparin. Repeat thrombectomy is unlikely to give a durable positive result. Improving inflow with an axillary artery to bypass graft may be of benefit. CTA ordered to assess aorta and left leg vessels prior to surgery. Code(s): I70.209 - UNSP ATHSCL [place] ARTERIES OF EXTREMITIES, UNSP EXTREMITY
[2018-06-29] MEDS ORDERED: HEPARIN NA (PORCINE) 5,000 UNITS/ML 1ML VIAL ONE ×2 (12:14→19:24)
--- NOTE | 2018-06-29 13:02 | PN ---
Progress Note, Physician Chief Complaint: S/p open thrombectomy and angioplasty of BOTTOM PAINTER on 06/25 R LE pain History of Present Illness: Previous notes and events reviewed alert and awake NAD complain of pain to RLE denies CP or SOB - Current Medication List Current Medications: Active Medications Atorvastatin Calcium (Lipitor -) 10 mg PO HS GERALD Gabapentin (Neurontin -) 300 mg PO TID GERALD Last Admin: 06/29/18 06:26 Dose: 300 mg Heparin Sodium (Porcine) (Heparin -) 1,000 unit IVPUSH PRN PRN PRN Reason: Heparin Last Admin: 06/29/18 12:15 Dose: 1,000 unit Heparin Sodium (Porcine) (Heparin -) 5,000 unit IVPUSH PRN PRN PRN Reason: Heparin Heparin Sodium/Dextrose (Heparin Infusion -) 25,000 units in 500 mls @ 20 mls/ hr IVPB TITR GERALD; Protocol Last Titration: 06/29/18 12:16 Dose: 1,100 units/hr, 22 mls/hr Sodium Chloride (Normal Saline -) 1,000 mls @ 75 mls/hr IV ASDIR GERALD Last Admin: 06/29/18 03:11 Dose: 75 mls/hr Morphine Sulfate (Morphine Sulfate) 2 mg IVPUSH Q4H PRN PRN Reason: PAIN LEVEL 6-10 Last Admin: 06/29/18 12:22 Dose: 2 mg - Objective Vital Signs: Vital Signs Temperature 97.6 F 06/29/18 09:30 Pulse Rate 81 06/29/18 09:30 Respiratory Rate 18 06/29/18 09:30 Blood Pressure 119/77 06/29/18 09:30 O2 Sat by Pulse Oximetry (%) 97 06/29/18 06:29 Constitutional: Yes: Well Nourished, No Distress, Calm Eyes: Yes: Conjunctiva Clear Cardiovascular: Yes: Regular Rate and Rhythm Respiratory: Yes: Regular, CTA Bilaterally Gastrointestinal: Yes: Normal Bowel Sounds, Soft Musculoskeletal: Yes: Other (RLE pain) Extremities: Yes: Cold (B/L feet) Edema: No Integumentary: Yes: Other (Scar RLE) Wound/Incision: Yes: Dressing Dry and Intact (R groin) Neurological: Yes: Alert, Oriented Psychiatric: Yes: Alert, Oriented Labs: CBC, BMP 06/29/18 00:45 06/29/18 00:45 INR, PTT INR 1.07 (0.83-1.09) 06/29/18 00:45 - ....Imaging Ultrasound: Other (arterial US RLE) <Freida Sibley - Last Filed: 06/29/18 12:57> - Current Medication List Current Medications: Active Medications Atorvastatin Calcium (Lipitor -) 10 mg PO HS GERALD Chlorhexidine Gluconate (Hibiclens For Decolonization -) 1 applic TP HS [facility] Gabapentin (Neurontin -) 300 mg PO TID GERALD Heparin Sodium (Porcine) (Heparin -) 1,000 unit IVPUSH PRN PRN PRN Reason: Heparin Heparin Sodium (Porcine) (Heparin -) 5,000 unit IVPUSH PRN PRN PRN Reason: Heparin Hydromorphone HCl (Dilaudid Vial -) 2 mg IVPB Q3H PRN PRN Reason: PAIN LEVEL 4 - 6 Hydromorphone HCl (Dilaudid Vial -) 4 mg IVPB Q3H PRN PRN Reason: PAIN LEVEL 7 - 10 Last Admin: 06/30/18 02:39 Dose: 4 mg Cefazolin Sodium (Ancef 1 Gm Premixed Ivpb -) 1 gm in 50 mls @ 100 mls/hr IVPB Q8H-IV GERALD Stop: 06/30/18 10:29 Last Admin: 06/30/18 02:07 Dose: 100 mls/hr Heparin Sodium/Dextrose (Heparin Infusion -) 25,000 units in 500 mls @ 20 mls/ hr IVPB TITR [facility]; Protocol Last Admin: 06/30/18 01:10 Dose: Not Given Sodium Chloride (Normal Saline -) 1,000 mls @ 75 mls/hr IV ASDIR GERALD Last Admin: 06/30/18 01:09 Dose: 75 mls/hr Famotidine/Sodium Chloride (Pepcid 20 Mg Premixed Ivpb -) 20 mg in 50 mls @ 100 mls/hr IVPB BID GERALD Morphine Sulfate (Morphine Sulfate) 2 mg IVPUSH Q4H PRN PRN Reason: PAIN LEVEL 1 - 3 Mupirocin (Bactroban Ointment (For Decolonization) -) 1 applic NS BID GERALD Stop: 07/05/18 09:59 Ondansetron HCl (Zofran Injection) 4 mg IVPUSH Q6H PRN PRN Reason: NAUSEA AND/OR VOMITING Stop: 06/30/18 10:00 Senna/Docusate Sodium (Pericolace -) 1 tablet PO HS GERALD - Objective Vital Signs: Vital Signs Temperature 97.8 F 06/30/18 02:00 Pulse Rate 80 06/30/18 04:40 Respiratory Rate 11 06/30/18 04:40 Blood Pressure 101/70 06/30/18 04:40 O2 Sat by Pulse Oximetry (%) 98 06/29/18 23:00 Labs: CBC, BMP 06/30/18 05:30 06/30/18 05:30 INR, PTT INR 1.07 (0.83-1.09) 06/29/18 00:45 <Dariana Cyr - Last Filed: 06/30/18 07:37> Problem List - Problems (1) Arterial occlusion, lower extremity Code(s): I70.209 - UNSP ATHSCL [place] ARTERIES OF EXTREMITIES, UNSP EXTREMITY (2) Arterial occlusion Code(s): I70.90 - UNSPECIFIED ATHEROSCLEROSIS (3) Cold right foot Code(s): R20.9 - UNSPECIFIED DISTURBANCES OF SKIN SENSATION (4) HLD (hyperlipidemia) Code(s): E78.5 - HYPERLIPIDEMIA, UNSPECIFIED <Freida Sibley - Last Filed: 06/29/18 12:57> Assessment/Plan -vascular on board -cont Heparin -morphine IVP PRN for pain management -NPO status -Chest CTA and Abdomen CTA AOR and BLE runoff CT scan pending -cont with ASA -cont with atorvastatin -dvt ppx <Freida Sibley - Last Filed: 06/29/18 12:57> PATIENT SEEN AND EXAMINED AND AGREE WITH ABOVE NOTE <Dariana Cyr - Last Filed: 06/30/18 07:37>
[2018-06-29] MEDS ORDERED: ROCURONIUM BROMIDE 50 MG/5 ML VIAL ONE (17:34)
[2018-06-29] MEDS ORDERED: fentaNYL CITRATE 250 MCG/5 ML VIAL ONE (17:34)
[2018-06-29] MEDS ORDERED: PROPOFOL 20 ML ONE ×2 (17:34→19:08)
[2018-06-29] MEDS ORDERED: MIDAZOLAM HCL 2 MG/2 ML SINGLE DOSE VIAL ONE ×2 (17:35)
[2018-06-29] MEDS ORDERED: ceFAZolin SODIUM 1 GM VIAL IVPB ONE (17:44)
[2018-06-29] MEDS ORDERED: GELATIN SPONGE,ABSORBABLE 1 GM PACKET TP ONE (18:00)
[2018-06-29] MEDS ORDERED: THROMBIN (BOVINE) 5,000 UNIT VIAL TP ONE ×2 (18:00→20:53)
[2018-06-29] MEDS ORDERED: ceFAZolin SODIUM 1 GM VIAL ONE (18:14)
[2018-06-29] MEDS ORDERED: DEXAMETHASONE SOD PHOSPHATE 4 MG/1 ML VIAL ONE (19:41)
[2018-06-29] MEDS ORDERED: DESFLURANE GAS 240 ML BOTTLE IH ONE (20:53)
[2018-06-29] MEDS ORDERED: THROMBIN (BOVINE) 20,000 UNIT VIAL TP ONE (20:53)
--- NOTE | 2018-06-29 21:50 | OP ---
Operative Note - Note: Operative Date: 06/29/18 Pre-Operative Diagnosis: Acute arterial occlusion both iliac arteries, right femoral-tibial bypass Operation: Axillo bifemoral bypass, thrombectomy right leg bypass graft. Angiogram Findings: Thrombosed right ilio-femoral vein bypass graft Patent left SFA Implants: 8 mm ringed PTFE graft. 6 mm ringed PTFE graft Post-Operative Diagnosis: Same as Pre-op Surgeon: Carlos Stoner Traffic Analysis Technician: Leah Robertson Anesthesiologist/STAFF WRITER: Chauncey Beckham Anesthesia: General Specimens Removed: Thrombus from bypass Estimated Blood Loss (mls): 200
[2018-06-29] MEDS ORDERED: ATORVASTATIN CA 10 MG TABLET (FP) PO SCH (22:00)
[2018-06-29] MEDS ORDERED: ONDANSETRON 4 MG/2 ML VIAL IVPUSH PRN (22:15)
[2018-06-29] MEDS ORDERED: LACTATED RINGERS SOLUTION 1,000 ML IV SCH (22:15)
[2018-06-29] MEDS ORDERED: MORPHINE SULFATE 2 MG/ML VIAL IVPUSH PRN (22:26)
[2018-06-29 22:51] LABS: HEMATOCRIT 41.9 % (35.4-49); MCH 30.2 pg (25.7-33.7); MCHC 33.3 g/dl (32.0-35.9); MEAN CELL VOLUME 90.6 fl (80-96); MEAN PLT VOLUME 7.6 fl (7.5-11.1); PLATELET COUNT 397 K/MM3 (134-434); RBC 4.63 M/mm3 (4.00-5.60); RDW 16.2 % (11.9-15.9); WHITE BLOOD COUNT 18.6 K/mm3 (4.0-10.0)
[2018-06-29 23:43] LABS: ANION GAP 5 MMOL/L (8-16); BLOOD UREA NITROGEN 17 mg/dL (7-18); CALCIUM 9.1 mg/dL (8.5-10.1); CHLORIDE 104 mmol/L (98-107); CO2 27 mmol/L (21-32); GLUCOSE,RANDOM 111 mg/dL (74-106); POTASSIUM 4.9 mmol/L (3.5-5.1); SODIUM 137 mmol/L (136-145)
--- NOTE | 2018-06-29 23:48 | CON.PULM ---
Consult Consult Specialty:: ICU monitoring Reason for Consultation:: ICU monitoring Post-OP - History of Present Illness Chief Complaint: right leg pain History of Present Illness: 57 yr old man former smoker, peripheral arterial and vascular disease on lovenox BID, hx multiple LE thrombosis, recent right leg thrombectomy(06/25/2018 ) presented with right leg pain s/p b/l axillary aorto-femoral bypass POD#0 being monitored in the ICU. c/o incisional pain. denies shortness of breath, chest pain, cough, lightheadedness, abdominal pain. - History Source History Provided By: Patient Limitations to Obtaining History: No Limitations - Past Medical History Cardio/Vascular: Yes: HTN, Hyperlipdemia, Other (peripheral arterial disease) Renal/: Yes: Renal Calculi - Past Surgical History Past Surgical History: Yes: Bypass - Alcohol/Substance Use Hx Alcohol Use: No History of Substance Use: reports: None - Smoking History Smoking history: Former smoker Have you smoked in the past 12 months: No Aproximately how many cigarettes per day: 0 If you are a former smoker, when did you quit?: more than one year ago - Social History Usual Living Arrangement: Shelter ADL: Independent History of Recent Travel: No Home Medications - Allergies Allergies/Adverse Reactions: Allergies Allergy/AdvReac Type Severity Reaction Status Date / Time Penicillins Allergy Verified 06/28/18 23:37 - Home Medications Home Medications: Ambulatory Orders Aspirin [ASA -] 81 mg PO DAILY #30 tab.chew 12/02/17 Enoxaparin Sodium [Lovenox] 80 mg SQ BID #60 syringe 12/02/17 Gabapentin [Neurontin] 300 mg PO TID 03/12/18 Simvastatin 20 mg PO HS 03/12/18 Review of Systems - Review of Systems Constitutional: denies: Fever, Loss of Appetite Eyes: reports: No Symptoms HENT: reports: No Symptoms Neck: reports: No Symptoms Cardiovascular: denies: Chest Pain Respiratory: reports: No Symptoms Gastrointestinal: reports: No Symptoms Genitourinary: reports: No Symptoms Breasts: reports: No Symptoms Reported Musculoskeletal: reports: Extremity Pain Integumentary: reports: No Symptoms Neurological: reports: No Symptoms Physical Exam Vital Sings: Vital Signs Temperature 98.1 F 06/29/18 22:03 Pulse Rate 88 06/29/18 22:45 Respiratory Rate 14 06/29/18 22:45 Blood Pressure 144/80 06/29/18 22:45 O2 Sat by Pulse Oximetry (%) 97 06/29/18 22:45 Constitutional: Yes: No Distress, Calm Eyes: Yes: Conjunctiva Clear, EOM Intact HENT: Yes: Atraumatic, Normocephalic Neck: Yes: Supple, Trachea Midline Cardiovascular: Yes: Regular Rate and Rhythm. No: Murmur Respiratory: Yes: Regular, CTA Bilaterally (anterior auscultation) Gastrointestinal: Yes: Normal Bowel Sounds, Soft, Other (well-healed abdominal scar) Extremities: Yes: Other (doppler pulses b/l DP and posterior tibial). No: Calf Tenderness Edema: No Integumentary: Yes: Other (swelling under right shoulder incison - sand bag placed on top. CDI at b/l femoral and left axilla) Neurological: Yes: Alert, Oriented Labs: CBC, BMP 06/29/18 22:30 06/29/18 22:30 Assessment/Plan 57 yr old man with hx of extensive LE interventions for recurrent thrombosis presented with right leg pain found to have thrombosed right ilio-femoral vein bypass graft s/p axillo bifemoral bypass and thrombectomy right leg bypass graft being closely monitored in the ICU. Vascular - vascular assessment with doppler q2hr for LE pulses - monitor hematoma at right axilla, sandbag placed on top, Dr. Stoner aware - hold heparin drip due to hematoma development at right axilla, current PTT 194 , repeat in AM - bedrest - pham in place, to be discontinued in 48hrs - ancef 2 doses post-op, first dose at 2am and then at 10am - pain control with morphine, gabapentin - bowel regimen with senakot po Respiratory 4L nasal cannula Cardiovascular - HLD - lipitor 10mg HS FEN - NS @75cc/hr - replete prn - NPO until breakfast Prophylaxis - GI prophylaxis with pepcid - scd's b/l le for DVT prophylaxis in high risk patient
[2018-06-30] MEDS: SODIUM CHLORIDE 1,000 ML IV SCH ×2 (01:09→16:00)
[2018-06-30] MEDS: HEPARIN INFUSION - 25,000 UNITS/500 ML INFUS.BAG IVPB SCH ×3 (01:10→22:45)
[2018-06-30] MEDS: CEFAZOLIN 1 GM/D5W 1 GM/50 ML BAG IVPB SCH ×2 (02:07→09:09)
[2018-06-30] MEDS: HYDROmorphone HCl 2 MG/ML VIAL IVPB PRN ×3 (02:39→20:50)
[2018-06-30 06:30] LABS: HEMATOCRIT 40.6 % (35.4-49); HEMOGLOBIN 12.9 GM/dL (11.7-16.9); MCH 29.2 pg (25.7-33.7); MCHC 31.8 g/dl (32.0-35.9); MEAN PLT VOLUME 7.3 fl (7.5-11.1); PLATELET COUNT 297 K/MM3 (134-434); RBC 4.41 M/mm3 (4.00-5.60); RDW 15.7 % (11.9-15.9); WHITE BLOOD COUNT 15.3 K/mm3 (4.0-10.0)
[2018-06-30 06:52] LABS: ANION GAP 6 MMOL/L (8-16); BLOOD UREA NITROGEN 14 mg/dL (7-18); CALCIUM 8.9 mg/dL (8.5-10.1); CHLORIDE 102 mmol/L (98-107); CO2 27 mmol/L (21-32); CREATININE 0.8 mg/dL (0.55-1.3); GLUCOSE,RANDOM 116 mg/dL (74-106); SODIUM 135 mmol/L (136-145)
[2018-06-30] MEDS ORDERED: HEPARIN NA (PORCINE) 5,000 UNITS/ML 1ML VIAL IVPUSH ONE (08:06)
[2018-06-30] MEDS: GABAPENTIN 300 MG CAPSULE (FP) PO SCH ×4 (08:26→21:39)
--- NOTE | 2018-06-30 08:38 | PN ---
Progress Note (short form) - Note Progress Note: POD1 No c/o Ecchymosis right chest wall and axilla All wounds dry Feet warm, doppler pulses intact Stable Restart Heparin drip OOB D/C pham Problem List - Problems (1) Arterial occlusion, lower extremity Code(s): I70.209 - UNSP ATHSCL [place] ARTERIES OF EXTREMITIES, UNSP EXTREMITY
[2018-06-30] MEDS: FAMOTIDINE 20 MG/50 ML IVPB 20 MG/50 ML MG IVPB SCH ×2 (09:09→21:39)
--- NOTE | 2018-06-30 09:33 | OP ---
DATE OF OPERATION: 06/29/2018 SURGEON: Carlos Stoner MD SOFTWARE QUALITY TESTER: JUSTIN Dos Santos PROCEDURE: 1. Right axillobifemoral bypass. 2. Thrombectomy of right iliotibial bypass. 3. Angiogram. PREOPERATIVE DIAGNOSIS: Occlusion of aortobifemoral bypass, right iliotibial bypass with severe ischemia, both lower extremities. POSTOPERATIVE DIAGNOSIS: Occlusion of aortobifemoral bypass, right iliotibial bypass with severe ischemia, both lower extremities. ANESTHESIA: General. ANESTHESIOLOGIST: Chauncey Beckham MD OPERATIVE FINDINGS: The right iliotibial bypass had reoccluded after a recent thrombectomy. The left superficial femoral and deep femoral arteries were patent. The right axillary artery was patent. Angiography following thrombectomy and anastomosis revealed patent outflow vessels bilaterally with stenosis of the proximal superficial femoral artery on the left side. Flow to both feet was present through the posterior tibial arteries. On the right side there was incomplete filling of the distal posterior tibial artery but collateral flow to the foot. OPERATIVE PROCEDURE: Following routine patient identification with site and side verification general anesthesia was induced. A Raymundo catheter was placed. The right neck, chest, abdomen, both groins were prepped with ChloraPrep. The initial incision was made in the left groin through the old scar extending distally a few centimeters. The subcutaneous tissues were divided using cautery for hemostasis. The superficial femoral artery was identified and was mobilized from the surrounding tissues and secured distally with a vessel loop. It was dissected proximally to the bifurcation of the common femoral artery which was mobilized and secured with a vessel loop. The deep femoral artery and large side branches were also secured with vessel loops. Small branches were ligated and divided. The wound was filled with moist saline gauze. Next incision was made in the right upper chest distal to the clavicle. This was a transverse incision which was carried into the subcutaneous tissues and muscle fascia with cautery. The pectoralis muscle fibers were . Dissection over the artery was performed with division of crossing vessels using silk ties and clips. Several small nerve branches had to be sacrificed to gain access to the subclavian artery. The artery was mobilized and secured proximally and distally with vessel loops. The right medial thigh wound was reopened by removal of the levy from the previous thrombectomy procedure. Subcutaneous sutures were divided and the vein graft was encircled with vessel loops. Incision was made in the right lower quadrant skin and a tunneler passed from this incision up to the infraclavicular incision. An 8-mm ring PTFE graft was passed through this tunnel with care not to twist or kink. The tunnel was then connected to the right groin incision with a large Juliet clamp and the graft was pulled down to this incision. A tunneler was then passed across the lower abdomen between the right lower quadrant and left groin incisions and a 6-mm ring PTFE graft passed through this tunnel. The patient was then systemically heparinized. The subclavian artery was occluded with vascular clamps and a longitudinal arteriotomy measuring approximately 8 mm was made. The end of the graft was beveled and anastomosed to the side of the artery with running sutures of 5-0 Prolene. Prior to completion of the suture line the graft was occluded with a clamp and the artery was allowed to backbleed and flush. The lumen was filled with heparin solution and the suture line was completed. The arterial clamps were removed and there was resumption of flow into the right arm. Bleeding from the suture line was controlled with FloSeal and pressure. The right tibial bypass graft was then opened with a longitudinal venotomy. The number 3 Johnnie catheters were passed distally and withdrawn with removal of thrombus. An olive-tip needle was placed into the graft and an angiogram performed which showed patent vein bypass with patent distal anastomosis and runoff via the posterior tibial artery to the lower calf and ankle. Filling vessels in the foot were seen. The lumen was filled with heparin saline solution. Thrombus was also removed from the proximal vein graft, but no attempt was made to restore inflow. The end of the 8-mm graft was then beveled and anastomosed to the side of the vein graft with running suture of 6-0 Prolene. Prior to completion of the suture line the vein graft was flushed with heparin solution and the vein graft was allowed to flush and was reoccluded. Suture line was completed. Clamps were removed. There was good flow through the anastomosis with a strong Doppler signal in the vein graft. Bleeding from the suture line was controlled with FloSeal. Attention was then turned to the graft in the right lower quadrant incision. The 8-mm graft was occluded proximally and distally with clamps and the rings were removed for approximately 3 cm of length. A longitudinal incision was made in the graft measuring approximately 6 mm. The end of the 6-mm graft was beveled and anastomosed to the side of the 8-mm graft with running suture of 6-0 Prolene. Prior to completion of the suture line the 8-mm graft was allowed to flush after occluding the cross femoral graft. Suture line was completed and the clamps were removed restarting flow into the right leg. Finally the left superficial femoral artery was occluded proximally and distally with bulldog clamps and opened with a longitudinal arteriotomy measuring approximately 8 mm. The end of the 6-mm graft was beveled and anastomosed to the side of the artery with running 6-0 Prolene sutures. Again it was allowed to flush and backbleed before completion. Clamps were removed. Strong Doppler signals were heard distal to all anastomoses. An 18-gauge Angiocath was then inserted into the axillary bypass graft and angiography performed with dilute contrast to visualize both graft anastomoses and the runoff into both feet which was unchanged. The needle was removed and a figure-of-8 suture of 6-0 Prolene placed. Thrombin and Gelfoam were applied where needed to suture lines. Wounds were all irrigated and closed with interrupted suture of 3-0 Vicryl and skin levy. Sterile dressings were applied and the patient was taken to the recovery area in stable condition. José [id number]
--- NOTE | 2018-06-30 09:48 | PN ---
Progress Note (short form) - Note Progress Note: Anesthesiology Post-op 57 y.o. man POD#1 s/p Axillo-bifem bypass under GA. He is sitting-up in bed with no complaints and taking breakfast without difficulty. Pain is under control. VSS. 57 y.o. man with stable post-operative course. Continue management as per Dr. Stoner.
--- NOTE | 2018-06-30 10:41 | SURG ---
Surgery Team Otr Truck Driver Note Team Otr Truck Driver: Leah Robertson PA-C Date of Service: 06/29/18 Diagnosis: Acute arterial occlusion both iliac arteries, right femoral-tibial bypass Procedure: Axillo bifemoral bypass, thrombectomy right leg bypass graft. Angiogram I was present for the entirety of the operative procedure. For further detail, please refer to operative report. Visit type - Case Type Case Type: ED Admission - Emergency Emergency Visit: Yes ED Registration Date: 06/29/18 Care time: The patient presented to the Emergency Department on the above date and was hospitalized for further evaluation of their emergent condition. - New patient This patient is new to me today: Yes Date on this admission: 06/30/18
--- NOTE | 2018-06-30 12:49 | PN ---
Teaching Attending Note Name of Resident: Reyna Syed ATTENDING PHYSICIAN STATEMENT I saw and evaluated the patient. I reviewed the resident's note and discussed the case with the resident. I agree with the resident's findings and plan as documented. SUBJECTIVE: Patient seen and examined in the ICU. Awake and alert. Pain seems adequately controlled. No CP or SOB. On IV Heparin drip. Intake & Output 06/27/18 06/28/18 06/29/18 06/30/18 23:59 23:59 23:59 23:59 Intake Total 2050 600 Output Total 1700 600 Balance 350 0 Weight 170 lb 162 lb 8 oz Last Vital Signs Temp Pulse Resp BP Pulse Ox 98.1 F 85 18 110/74 97 06/30/18 12:00 06/30/18 12:00 06/30/18 12:00 06/30/18 12:00 06/30/18 08:00 Active Medications Atorvastatin Calcium (Lipitor -) 10 mg PO HS [facility] Chlorhexidine Gluconate (Hibiclens For Decolonization -) 1 applic TP HS [facility] Gabapentin (Neurontin -) 300 mg PO TID [facility] Last Admin: 06/30/18 08:26 Dose: 300 mg Heparin Sodium (Porcine) (Heparin -) 1,000 unit IVPUSH PRN PRN PRN Reason: Heparin Heparin Sodium (Porcine) (Heparin -) 5,000 unit IVPUSH PRN PRN PRN Reason: Heparin Hydromorphone HCl (Dilaudid Vial -) 2 mg IVPB Q3H PRN PRN Reason: PAIN LEVEL 4 - 6 Hydromorphone HCl (Dilaudid Vial -) 4 mg IVPB Q3H PRN PRN Reason: PAIN LEVEL 7 - 10 Last Admin: 06/30/18 02:39 Dose: 4 mg Heparin Sodium/Dextrose (Heparin Infusion -) 25,000 units in 500 mls @ 20 mls/ hr IVPB TITR [facility]; Protocol Last Admin: 06/30/18 08:30 Dose: 1,000 units/hr, 20 mls/hr Sodium Chloride (Normal Saline -) 1,000 mls @ 75 mls/hr IV ASDIR [facility] Last Admin: 06/30/18 01:09 Dose: 75 mls/hr Famotidine/Sodium Chloride (Pepcid 20 Mg Premixed Ivpb -) 20 mg in 50 mls @ 100 mls/hr IVPB BID [facility] Last Admin: 06/30/18 09:09 Dose: 100 mls/hr Morphine Sulfate (Morphine Sulfate) 2 mg IVPUSH Q4H PRN PRN Reason: PAIN LEVEL 1 - 3 Mupirocin (Bactroban Ointment (For Decolonization) -) 1 applic NS BID [facility] Stop: 07/05/18 09:59 Senna/Docusate Sodium (Pericolace -) 1 tablet PO [facility] Constitutional: Yes: No Distress, Awake and alert Eyes: Yes: Conjunctiva Clear, EOM Intact HENT: Yes: Atraumatic, Normocephalic Neck: Yes: Supple, Trachea Midline Cardiovascular: Yes: Regular Rate and Rhythm. No: Murmur Respiratory: Yes: Regular, CTA Bilaterally (anterior auscultation) Gastrointestinal: Yes: Normal Bowel Sounds, Soft, Other (well-healed abdominal scar) Extremities: Yes: doppler pulses b/l DP and posterior tibial, right foot is cooler than left. No: Calf Tenderness Edema: No Integumentary: Yes: all sites are CDI Neurological: Yes: Alert, Oriented Labs: Assessment/Plan POD #1: Axillo bifemoral bypass, thrombectomy right leg bypass graft, and angiogram due to an acute arterial occlusion both iliac arteries, right femoral- tibial bypass History of extensive vascular interventions for recurrent thrombosis COPD HPL IV heparin per protocol O2 as needed ABX as ordered BD TX PRN No smoking May be beneficial to have a Heme evaluation as an outpatient to assess thrombosis Bowel regimen Lipitor Floor when cleared by surgical attending Dr Felipe
[2018-06-30] MEDS ORDERED: PT OWN MED DRAWER 7, Y5N ONE (13:18)
--- NOTE | 2018-06-30 13:29 | PN ---
Progress Note (short form) - Note Progress Note: SUBJECTIVE Patient seen and examined at the bedside. RLE pain relieved, now 06/25. Pleasant. OBJECTIVE Vital Signs Temperature 98.0 F 06/30/18 16:00 Pulse Rate 86 06/30/18 16:00 Respiratory Rate 06/30/18 16:00 Blood Pressure 116/75 06/30/18 16:00 O2 Sat by Pulse Oximetry (%) 97 06/30/18 08:00 General: Alert, Oriented x 3, No acute distress Head: No signs of trauma Eyes: EOMI, sclera anicteric ENT: Dry mucus membranes Neck: decreased ROM Lungs: Lungs CTAB Cardio: Regular rhythm, S1 and S2 present Abdomen: Soft, nondistended Extremities: BLE distal pulses present with doppler SKIN: Warm, Dry, normal turgor Neurologic: CN II through XII grossly intact. Normal speech ASSESSMENT 57yo M with PMH of PVD and HLD with painful and cold RLE s/p Axillo-bifemoral bypass, POD #1 PLAN CV S/p thrombectomy -monitor pulses with doppler HLD -home atorvastatin SCDs in place IV Heparin Drip Heme evaluation, possibly outpatient PAIN Famotidine 20mg for GI Morphine 2mg IV q4h PRN for pain 1-3/10 Dilaudid 2mg IV q4h PRN for pain 4-6/10 Dilaudid 4mg IV q4h PRN for pain 7-10/10 Patients home gabapentin FEN Monitor electrolytes -Replete as needed Patient tolerating po intake NS maintenance fluids 75cc/hr
--- NOTE | 2018-06-30 14:18 | PN ---
Progress Note, Physician Chief Complaint: S/p open thrombectomy and angioplasty of [employer]SE [employer]INCIPAL on 06/25 S/p Axillo-bifemoral bypass History of Present Illness: Previous notes and events reviewed alert and awake NAD POD #1 denies CP or SOB sts pain is controlled - Current Medication List Current Medications: Active Medications Atorvastatin Calcium (Lipitor -) 10 mg PO HS [facility] Chlorhexidine Gluconate (Hibiclens For Decolonization -) 1 applic TP HS [facility] Gabapentin (Neurontin -) 300 mg PO TID [facility] Last Admin: 06/30/18 08:26 Dose: 300 mg Heparin Sodium (Porcine) (Heparin -) 1,000 unit IVPUSH PRN PRN PRN Reason: Heparin Heparin Sodium (Porcine) (Heparin -) 5,000 unit IVPUSH PRN PRN PRN Reason: Heparin Hydromorphone HCl (Dilaudid Vial -) 2 mg IVPB Q3H PRN PRN Reason: PAIN LEVEL 4 - 6 Hydromorphone HCl (Dilaudid Vial -) 4 mg IVPB Q3H PRN PRN Reason: PAIN LEVEL 7 - 10 Last Admin: 06/30/18 02:39 Dose: 4 mg Heparin Sodium/Dextrose (Heparin Infusion -) 25,000 units in 500 mls @ 20 mls/ hr IVPB TITR [facility]; Protocol Last Admin: 06/30/18 08:30 Dose: 1,000 units/hr, 20 mls/hr Sodium Chloride (Normal Saline -) 1,000 mls @ 75 mls/hr IV ASDIR [facility] Last Admin: 06/30/18 01:09 Dose: 75 mls/hr Famotidine/Sodium Chloride (Pepcid 20 Mg Premixed Ivpb -) 20 mg in 50 mls @ 100 mls/hr IVPB BID [facility] Last Admin: 06/30/18 09:09 Dose: 100 mls/hr Morphine Sulfate (Morphine Sulfate) 2 mg IVPUSH Q4H PRN PRN Reason: PAIN LEVEL 1 - 3 Mupirocin (Bactroban Ointment (For Decolonization) -) 1 applic NS BID [facility] Stop: 07/05/18 09:59 Senna/Docusate Sodium (Pericolace -) 1 tablet PO HS [facility] - Objective Vital Signs: Vital Signs Temperature 98.1 F 06/30/18 12:00 Pulse Rate 85 06/30/18 12:00 Respiratory Rate 18 06/30/19 12:00 Blood Pressure 110/74 06/30/18 12:00 O2 Sat by Pulse Oximetry (%) 97 06/30/18 08:00 Constitutional: Yes: Well Nourished, No Distress, Calm Eyes: Yes: Conjunctiva Clear Cardiovascular: Yes: Regular Rate and Rhythm Respiratory: Yes: Regular, CTA Bilaterally Gastrointestinal: Yes: Normal Bowel Sounds, Soft Musculoskeletal: Yes: Muscle Weakness Extremities: Yes: Other (R foot is cooler than L foot) Edema: No Peripheral Pulses WNL: Yes (doppler pulse L foot, doppler pulse R ankle) Wound/Incision: Yes: Dressing Dry and Intact Neurological: Yes: Alert, Oriented Psychiatric: Yes: Alert, Oriented Labs: CBC, BMP 06/30/18 05:30 06/30/18 05:30 INR, PTT INR 1.07 (0.83-1.09) 06/29/18 00:45 <Freida Sibley - Last Filed: 06/30/18 14:18> - Current Medication List Current Medications: Active Medications Acetaminophen (Tylenol -) 325 mg PO Q4H PRN PRN Reason: PAIN LEVEL 1-5 Acetaminophen (Tylenol -) 650 mg PO Q4H PRN PRN Reason: PAIN LEVEL 6-10 Aspirin (Ecotrin -) 81 mg PO DAILY [facility] Last Admin: 07/03/18 10:11 Dose: 81 mg Atorvastatin Calcium (Lipitor -) 10 mg PO HS [facility] Last Admin: 07/02/18 21:15 Dose: 10 mg Clopidogrel Bisulfate (Plavix -) 75 mg PO DAILY [facility] Last Admin: 07/03/18 10:11 Dose: 75 mg Enoxaparin Sodium (Lovenox -) 80 mg SQ BID [facility] Last Admin: 07/03/18 10:12 Dose: 80 mg Gabapentin (Neurontin -) 300 mg PO TID [facility] Last Admin: 07/03/18 15:40 Dose: 300 mg Morphine Sulfate (Morphine Sulfate) 2 mg IVPUSH Q4H PRN PRN Reason: PAIN LEVEL 1 - 3 Last Admin: 07/03/18 06:30 Dose: 2 mg Oxycodone HCl (Roxicodone -) 5 mg PO Q4H PRN PRN Reason: PAIN LEVEL 1-5 Oxycodone HCl (Roxicodone -) 10 mg PO Q4H PRN PRN Reason: PAIN LEVEL 6-10 Pantoprazole Sodium (Protonix -) 40 mg PO DAILY [facility] Polyethylene Glycol (Miralax (For Daily Use) -) 17 gm PO TID [facility] Senna/Docusate Sodium (Pericolace -) 2 tablet PO BID [facility] Last Admin: 07/03/18 10:11 Dose: 2 tablet - Objective Vital Signs: Vital Signs Temperature 97.7 F 07/03/18 16:30 Pulse Rate 98 H 07/03/18 16:30 Respiratory Rate 18 07/03/18 16:30 Blood Pressure 102/65 07/03/18 16:30 O2 Sat by Pulse Oximetry (%) 95 07/03/18 09:00 Labs: CBC, BMP 07/03/18 06:30 07/03/18 06:30 INR, PTT INR 1.07 (0.83-1.09) 06/29/18 00:45 <Dariana Cyr - Last Filed: 07/03/18 21:17> Problem List - Problems (1) Arterial occlusion, lower extremity Code(s): I70.209 - UNSP ATHSCL [place] ARTERIES OF EXTREMITIES, UNSP EXTREMITY (2) Arterial occlusion Code(s): I70.90 - UNSPECIFIED ATHEROSCLEROSIS (3) Cold right foot Code(s): R20.9 - UNSPECIFIED DISTURBANCES OF SKIN SENSATION (4) HLD (hyperlipidemia) Code(s): E78.5 - HYPERLIPIDEMIA, UNSPECIFIED <Freida Sibley - Last Filed: 06/30/18 14:18> Assessment/Plan -vascular on board -cont Heparin drip -hematology consult for hypercoaguble state -pain management -regular diet -senna/colace -O2 via NC PRN, keep SpO2 >90% -cont with ASA -cont with atorvastatin -dvt ppx <Freida Sibley - Last Filed: 06/30/18 14:18> I HAVE EXAMINED THE PATIENT AND I AGREE WITH THE ABOVE NOTE <Dariana Cyr - Last Filed: 07/03/18 21:17>
[2018-06-30] MEDS: MUPIROCIN 2% TOPICAL OINTMENT FOR DECOLONIZATION NS SCH ×2 (14:23→21:40)
[2018-06-30] MEDS: ATORVASTATIN CA 10 MG TABLET (FP) PO SCH (21:39)
[2018-06-30] MEDS: CHLORHEXIDINE GLUCONATE 4% CLEANSER FOR DECOLONIZATION TP SCH (21:40)
[2018-06-30] MEDS ORDERED: SENNOSIDES/DOCUSATE COMBO (SENNA PLUS) TABLET (UD) PO SCH (22:00)
[2018-06-30] MEDS: HEPARIN NA (PORCINE) 5,000 UNITS/ML 1ML VIAL IVPUSH PRN (22:47)
[2018-07-01] MEDS: HYDROmorphone HCl 2 MG/ML VIAL IVPB PRN ×4 (04:11→19:52)
[2018-07-01] MEDS: SODIUM CHLORIDE 1,000 ML IV SCH ×2 (04:18→04:54)
[2018-07-01] MEDS: HEPARIN INFUSION - 25,000 UNITS/500 ML INFUS.BAG IVPB SCH ×2 (06:04→23:46)
[2018-07-01] MEDS: GABAPENTIN 300 MG CAPSULE (FP) PO SCH ×3 (06:04→22:40)
[2018-07-01 06:33] LABS: BASO % 0.8 % (0-2.0); EOS % 0.9 % (0-4.5); HEMOGLOBIN 10.9 GM/dL (11.7-16.9); LYMPH % 28.2 % (8-40); MCH 31.2 pg (25.7-33.7); MCHC 34.2 g/dl (32.0-35.9); MEAN CELL VOLUME 91.4 fl (80-96); MEAN PLT VOLUME 7.2 fl (7.5-11.1); NEUT % 59.1 % (42.8-82.8); PLATELET COUNT 245 K/MM3 (134-434); RDW 15.6 % (11.9-15.9); WHITE BLOOD COUNT 9.7 K/mm3 (4.0-10.0)
[2018-07-01] MEDS: HEPARIN NA (PORCINE) 5,000 UNITS/ML 1ML VIAL IVPUSH PRN (06:58)
[2018-07-01 09:12] LABS: ANION GAP 6 MMOL/L (8-16); BLOOD UREA NITROGEN 14 mg/dL (7-18); CALCIUM 8.1 mg/dL (8.5-10.1); CHLORIDE 98 mmol/L (98-107); CO2 31 mmol/L (21-32); GLUCOSE,RANDOM 105 mg/dL (74-106); PHOSPHOROUS 3.3 mg/dL (2.5-4.9); POTASSIUM 3.9 mmol/L (3.5-5.1); SODIUM 135 mmol/L (136-145); TOT PROT 5.5 g/dl (6.4-8.2)
[2018-07-01 09:13] LABS: ALBUMIN 2.4 g/dl (3.4-5.0); ALK PHOS 181 U/L (45-117); BILIRUBIN,TOTAL 0.2 mg/dL (0.2-1); SGOT/AST 199 U/L (15-37); SGPT/ALT 224 U/L (13-61)
--- NOTE | 2018-07-01 09:22 | PN ---
Progress Note, Physician - Current Medication List Current Medications: Active Medications Atorvastatin Calcium (Lipitor -) 10 mg PO HS [facility] Last Admin: 06/30/18 21:39 Dose: 10 mg Chlorhexidine Gluconate (Hibiclens For Decolonization -) 1 applic TP HS [facility] Last Admin: 06/30/18 21:40 Dose: 1 applic Gabapentin (Neurontin -) 300 mg PO TID [facility] Last Admin: 07/01/18 06:04 Dose: 300 mg Heparin Sodium (Porcine) (Heparin -) 1,000 unit IVPUSH PRN PRN PRN Reason: Heparin Last Admin: 07/01/18 06:58 Dose: 1,000 unit Heparin Sodium (Porcine) (Heparin -) 5,000 unit IVPUSH PRN PRN PRN Reason: Heparin Hydromorphone HCl (Dilaudid Vial -) 2 mg IVPB Q3H PRN PRN Reason: PAIN LEVEL 4 - 6 Last Admin: 07/01/18 04:11 Dose: 2 mg Hydromorphone HCl (Dilaudid Vial -) 4 mg IVPB Q3H PRN PRN Reason: PAIN LEVEL 7 - 10 Last Admin: 06/30/18 14:30 Dose: 4 mg Heparin Sodium/Dextrose (Heparin Infusion -) 25,000 units in 500 mls @ 20 mls/ hr IVPB TITR [facility]; Protocol Last Titration: 07/01/18 06:52 Dose: 1,300 units/hr, 26 mls/hr Sodium Chloride (Normal Saline -) 1,000 mls @ 75 mls/hr IV ASDIR [facility] Last Admin: 07/01/18 04:54 Dose: 75 mls/hr Famotidine/Sodium Chloride (Pepcid 20 Mg Premixed Ivpb -) 20 mg in 50 mls @ 100 mls/hr IVPB BID [facility] Last Admin: 06/30/18 21:39 Dose: 100 mls/hr Morphine Sulfate (Morphine Sulfate) 2 mg IVPUSH Q4H PRN PRN Reason: PAIN LEVEL 1 - 3 Mupirocin (Bactroban Ointment (For Decolonization) -) 1 applic NS BID [facility] Stop: 07/05/18 09:59 Last Admin: 06/30/18 21:40 Dose: 1 applic Senna/Docusate Sodium (Pericolace -) 1 tablet PO HS [facility] Last Admin: 06/30/18 21:39 Dose: 1 tablet - Objective Vital Signs: Vital Signs Temperature 98.5 F 07/01/18 08:00 Pulse Rate 102 H 07/01/18 08:00 Respiratory Rate 20 07/01/18 09:00 Blood Pressure 108/68 07/01/18 08:00 O2 Sat by Pulse Oximetry (%) 94 L 07/01/18 09:00 Cardiovascular: Yes: S1, S2 Respiratory: Yes: Regular, CTA Bilaterally Gastrointestinal: Yes: Normal Bowel Sounds, Soft Extremities: Yes: Other (warm no discolaration) Labs: CBC, BMP 07/01/18 05:30 07/01/18 05:30 INR, PTT INR 1.07 (0.83-1.09) 06/29/18 00:45 Problem List - Problems (1) Arterial occlusion, lower extremity Assessment/Plan: -heparin drip -bed rest-Activity per Vascular -vascular consult noted -statin Code(s): I70.209 - UNSP ATHSCL [place] ARTERIES OF EXTREMITIES, UNSP EXTREMITY (2) HLD (hyperlipidemia) Assessment/Plan: -On atorvastatin Code(s): E78.5 - HYPERLIPIDEMIA, UNSPECIFIED
[2018-07-01] MEDS ORDERED: PT OWN MED DRAWER 7, Y5N ONE ×3 (09:23→19:47)
[2018-07-01] MEDS: FAMOTIDINE 20 MG/50 ML IVPB 20 MG/50 ML MG IVPB SCH ×2 (09:33→22:40)
--- NOTE | 2018-07-01 10:27 | PN ---
Progress Note (short form) - Note Progress Note: 57yo M s/p Right axillary-fem and fem-fem bypass, seen and examined in the ICU. Pt states that he is feeling well, just complaining of pain around incision sites. Denies pain or weakness in RLE. Denies fever, chills, n/v. Last Vital Signs Temp Pulse Resp BP Pulse Ox 98.5 F 102 H 20 108/68 94 L 07/01/18 08:00 07/01/18 08:00 07/01/18 09:00 07/01/18 08:00 07/01/18 09:00 CBC, BMP 07/01/18 05:30 07/01/18 05:30 INR, PTT INR 1.07 (0.83-1.09) 06/29/18 00:45 PE: Gen: A&O X3 REsp: breathing comfortably Chest: Rt Axilla shows echymosis, mild tenderness RLE: incision sites are clean with on erythema or discharge, foot warm and pink. Dopplarable pulses. Problem List - Problems (1) Arterial occlusion, lower extremity Assessment/Plan: Plan -continue heparin drip -neurovascular checks RLE -OOB Code(s): I70.209 - UNSP ATHSCL YUROK ARTERIES OF EXTREMITIES, UNSP EXTREMITY
--- NOTE | 2018-07-01 10:32 | CONSULT ---
Consult Consult Specialty:: Hemonc Referred by:: Dr. Grove Reason for Consultation:: hypercoagubility state - History of Present Illness Chief Complaint: leg pain History of Present Illness: 57 yo M ex smoker h/o extensive peripheral arterial disease s/p multiple thrombectomy and bypass grafts p/w acute leg pain. Patient was first found to have bilateral occlusion of LE arteries in 2010. After thrombectomy, he was symptom free till 2018. Since 2018, he has had recurrent thrombosis and occluded grafts despite being on AC with coumadin, eliquis, and lovenex. He's later found to have occluded bilateral iliac arteries and R femoral-tibial bypass and underwent axillo bifemoral bypass, thrombectomy R leg bypass graft. Patient denies family history of clotting disorder. He admits 40 pack year history. - History Source History Provided By: Patient Limitations to Obtaining History: No Limitations - Past Medical History Cardio/Vascular: Yes: HTN, Hyperlipdemia, Other (peripheral arterial disease) Renal/: Yes: Renal Calculi - Past Surgical History Past Surgical History: Yes: Bypass - Alcohol/Substance Use Hx Alcohol Use: No History of Substance Use: reports: None - Smoking History Smoking history: Former smoker Have you smoked in the past 12 months: No Aproximately how many cigarettes per day: 0 If you are a former smoker, when did you quit?: more than one year ago - Social History Usual Living Arrangement: Assisted ADL: Independent History of Recent Travel: No Home Medications - Allergies Allergies/Adverse Reactions: Allergies Allergy/AdvReac Type Severity Reaction Status Date / Time Penicillins Allergy Verified 06/28/18 23:37 - Home Medications Home Medications: Ambulatory Orders Aspirin [ASA -] 81 mg PO DAILY #30 tab.chew 12/02/17 Enoxaparin Sodium [Lovenox] 80 mg SQ BID #60 syringe 12/02/17 Gabapentin [Neurontin] 300 mg PO TID 03/12/18 Simvastatin 20 mg PO HS 03/12/18 Review of Systems - Review of Systems Constitutional: denies: Chills, Fever Eyes: denies: Blind Spots, Blurred Vision Cardiovascular: denies: Chest Pain, Shortness of Breath Gastrointestinal: reports: Abdominal Pain Neurological: reports: No Symptoms Physical Exam Vital Signs: Vital Signs Temperature 98.5 F 07/01/18 08:00 Pulse Rate 102 H 07/01/18 08:00 Respiratory Rate 20 07/01/18 09:00 Blood Pressure 108/68 07/01/18 08:00 O2 Sat by Pulse Oximetry (%) 94 L 07/01/18 09:00 Constitutional: Yes: No Distress, Calm HENT: Yes: Atraumatic, Normocephalic Cardiovascular: Yes: Regular Rate and Rhythm, S1, S2 Respiratory: Yes: CTA Bilaterally Gastrointestinal: Yes: Normal Bowel Sounds, Soft Edema: No Peripheral Pulses WNL: Yes (R DP palpable by hand, weak pulse felt at L DP) Wound/Incision: Yes: Clean/Dry, Dressing Dry and Intact Neurological: Yes: Alert, Oriented Labs: CBC, BMP 07/01/18 05:30 07/01/18 05:30 Assessment/Plan 57 yo M ex smoker h/o extensive peripheral arterial disease s/p multiple thrombectomy and bypass grafts with recurrent stenosis and occlusions p/w acute leg pain. He's now s/p axillo-bifemoral bypass and thrombectomy POD 2. Extensive PAD s/p multiple thrombectomies and bypass grafts with recurrent stenosis and occlusions 1. Pt may have underlying hypercoag state exacerbated by smoking given the fact that he failed multiple AC regiments 2. may not be ideal timing now to begin work up for as therapeutic AC may alter many tests 3. for now, will send FVL, PTgene2, anticardiolipin, beta 2 glycoprotein I,LAC, homocysteine, MTHFR, WILBER,MARK-2 4. rest of work up will be done later on when patient is off heparin 5. will need to consult Dr. Thayer regarding AC choice. Kamari Hansen PGY3 Visit type - Emergency Visit Emergency Visit: No - New Patient This patient is new to me today: Yes Date on this admission: 07/02/18 - Critical Care Critical Care patient: Yes Total Critical Care Time (in minutes): 35 Critical Care Statement: The care of this patient involved high complexity decision making to prevent further life threatening deterioration of the patient 's condition and/or to evaluate & treat vital organ system(s) failure or risk of failure.
[2018-07-01] MEDS ORDERED: BISACODYL 5 MG TABLET.DR (FP) PO ONE (10:45)
--- NOTE | 2018-07-01 10:47 | PN ---
Progress Note (short form) - Note Progress Note: Patient seen and examined at bedside no acute events overnight complains of some pain and soreness at the incision sites Vital Signs Temperature 98.5 F 07/01/18 08:00 Pulse Rate 102 H 07/01/18 08:00 Respiratory Rate 20 07/01/18 09:00 Blood Pressure 108/68 07/01/18 08:00 O2 Sat by Pulse Oximetry (%) 94 L 07/01/18 09:00 Constitutional: Yes: Well Nourished, No Distress, Calm Eyes: Yes: Conjunctiva Clear, EOM Intact HENT: Yes: Atraumatic, Normocephalic Neck: Yes: Supple, Trachea Midline Cardiovascular: Yes: Regular Rate and Rhythm, S1, S2 Respiratory: Yes: Regular, CTA Bilaterally Gastrointestinal: Yes: Normal Bowel Sounds, Soft. No: Tenderness, Tenderness, Epigastrium Extremities: Yes: Other (RLE warm. Dopplerable DP/PT pulse bilaterally) Edema: No Wound/Incision: Yes: all incisions on chest and groins C/D/I Neurological: Yes: Alert, Oriented Psychiatric: Yes: Alert, Oriented 07/01/18 07/01/18 05:30 05:30 WBC 9.7 RBC 3.50 L Hgb 10.9 L Hct 32.0 L D MCV 91.4 MCHC 34.2 RDW 15.6 Plt Count 245 Neutrophils % 59.1 Lymphocytes % 28.2 D Monocytes % 11.0 H Eosinophils % 0.9 Basophils % 0.8 Sodium 135 L Potassium 3.9 Chloride 98 Carbon Dioxide 31 Anion Gap 6 L BUN 14 Creatinine 1.0 57M with extensive history of pewripheral arterial disease presents to the hospital with acute onset RLE pain while walking is now POD #2 s/p open thrombectomy RLE bypass/angiogram/thrombectomy/tPA/nitroglycerin gtt now on heparin gtt. Problem List: Peripheral vascular disease peripheral arterial disease bilateral iliac artery s/p Axillo-Bifemoral Bypass/Thrombectomy RLE Bypass Graft HTN HLD history of renal calculi former smoker COPD Plan: continue heparin gtt per protocol Trend PTT q6h continue q1 doppler checks for now while in ICU Pain control PRN continue to monitor groin and chest for expansion and bleeding incentive spirometry PT hematology evaluation for recurrent thrombosis despite anticoagulation Transfer to med/surg Discussed with attending Dr. Trinh
[2018-07-01] MEDS: MUPIROCIN 2% TOPICAL OINTMENT FOR DECOLONIZATION NS SCH ×2 (11:45→22:41)
[2018-07-01] MEDS: POLYETHYLENE GLYCOL 3350 119 GM BTL PO SCH (11:53)
--- NOTE | 2018-07-01 11:57 | EKG ---
Test Reason : Blood Pressure : / mmHG Vent. Rate : 105 BPM Atrial Rate : 105 BPM P-R Int : 118 ms QRS Dur : 090 ms QT Int : 330 ms P-R-T Axes : 069 061 039 degrees QTc Int : 436 ms SINUS TACHYCARDIA OTHERWISE NORMAL ECG WHEN COMPARED WITH ECG OF 25-JUN-2018 03:43, NO SIGNIFICANT CHANGE WAS FOUND Confirmed by WILLIAMS OVIEDO MD ([id number]) on 07/01/2018 11:56:39 AM Referred By: Confirmed By:WILLIAMS OVIEDO MD
--- NOTE | 2018-07-01 12:37 | PN ---
Teaching Attending Note Name of Resident: Kaiser Anand ATTENDING PHYSICIAN STATEMENT I saw and evaluated the patient. I reviewed the resident's note and discussed the case with the resident. I agree with the resident's findings and plan as documented. SUBJECTIVE: Pt seen and examined in the ICU. Still with some soreness at incisions and tunnelling sites. Denies shortness of breath or chest pain. OBJECTIVE: Vital Signs Period Temp Pulse Resp BP Sys/White Pulse Ox Last 24 Hr 97.9 F-98.5 F 80-102 11-24 108-128/60-77 92-94 Intake & Output 06/28/18 06/29/18 06/30/18 07/01/18 23:59 23:59 23:59 23:59 Intake Total 2050 2512.9 1400 Output Total 1700 2650 950 Balance 350 -137.1 450 Weight 77.111 kg 73.709 kg 75.523 kg Gen: NAD at rest Heart: RRR Lung: decreased breath sounds at the bases abd: soft, nontender Ext: R axillary ecchymoses, LE warm to touch CBC, BMP 07/01/18 05:30 07/01/18 05:30 Active Medications Atorvastatin Calcium (Lipitor -) 10 mg PO HS [facility] Last Admin: 06/30/18 21:39 Dose: 10 mg Chlorhexidine Gluconate (Hibiclens For Decolonization -) 1 applic TP HS [facility] Last Admin: 06/30/18 21:40 Dose: 1 applic Gabapentin (Neurontin -) 300 mg PO TID [facility] Last Admin: 07/01/18 06:04 Dose: 300 mg Heparin Sodium (Porcine) (Heparin -) 1,000 unit IVPUSH PRN PRN PRN Reason: Heparin Last Admin: 07/01/18 06:58 Dose: 1,000 unit Heparin Sodium (Porcine) (Heparin -) 5,000 unit IVPUSH PRN PRN PRN Reason: Heparin Hydromorphone HCl (Dilaudid Vial -) 2 mg IVPB Q3H PRN PRN Reason: PAIN LEVEL 4 - 6 Last Admin: 07/01/18 09:31 Dose: 2 mg Hydromorphone HCl (Dilaudid Vial -) 4 mg IVPB Q3H PRN PRN Reason: PAIN LEVEL 7 - 10 Last Admin: 06/30/18 14:30 Dose: 4 mg Heparin Sodium/Dextrose (Heparin Infusion -) 25,000 units in 500 mls @ 20 mls/ hr IVPB TITR [facility]; Protocol Last Titration: 07/01/18 06:52 Dose: 1,300 units/hr, 26 mls/hr Famotidine/Sodium Chloride (Pepcid 20 Mg Premixed Ivpb -) 20 mg in 50 mls @ 100 mls/hr IVPB BID [facility] Last Admin: 07/01/18 09:33 Dose: 100 mls/hr Morphine Sulfate (Morphine Sulfate) 2 mg IVPUSH Q4H PRN PRN Reason: PAIN LEVEL 1 - 3 Mupirocin (Bactroban Ointment (For Decolonization) -) 1 applic NS BID [facility] Stop: 07/05/18 09:59 Last Admin: 07/01/18 11:45 Dose: 1 applic Polyethylene Glycol (Miralax (For Daily Use) -) 17 gm PO DAILY [facility] Last Admin: 07/01/18 11:53 Dose: Not Given Senna/Docusate Sodium (Pericolace -) 2 tablet PO BID [facility] ASSESSMENT AND PLAN: Bilateral Iliac Artery/Rigth Femoral-Tibial Bypass Occlusions s/p Axillo-Bifemoral Bypass/Thrombectomy RLE Bypass Graft COPD Hyperlipidemia - pulse checks - continue anticoagulation - pain control - incentive spirometry - bowel regimen - hematology eval - inhaled bronchodilators as needed - transfer to floor when ok with surgery
[2018-07-01 15:19] VITALS: BMI 23.2
[2018-07-01] MEDS: CHLORHEXIDINE GLUCONATE 4% CLEANSER FOR DECOLONIZATION TP SCH (22:40)
[2018-07-01] MEDS: ATORVASTATIN CA 10 MG TABLET (FP) PO SCH (22:40)
[2018-07-01] MEDS: SENNOSIDES/DOCUSATE COMBO (SENNA PLUS) TABLET (UD) PO SCH (23:46)
[2018-07-02] MEDS: HYDROmorphone HCl 2 MG/ML VIAL IVPB PRN ×4 (02:59→18:41)
[2018-07-02] MEDS: GABAPENTIN 300 MG CAPSULE (FP) PO SCH ×3 (05:09→21:15)
[2018-07-02 06:30] LABS: BASO % 0.5 % (0-2.0); EOS % 0.8 % (0-4.5); HEMATOCRIT 35.5 % (35.4-49); HEMOGLOBIN 11.8 GM/dL (11.7-16.9); LYMPH % 18.1 % (8-40); MCH 30.5 pg (25.7-33.7); MCHC 33.3 g/dl (32.0-35.9); MEAN CELL VOLUME 91.7 fl (80-96); MEAN PLT VOLUME 7.3 fl (7.5-11.1); MONO % 8.2 % (3.8-10.2); NEUT % 72.4 % (42.8-82.8); PLATELET COUNT 265 K/MM3 (134-434); RBC 3.87 M/mm3 (4.00-5.60); RDW 15.7 % (11.9-15.9); WHITE BLOOD COUNT 10.8 K/mm3 (4.0-10.0)
--- NOTE | 2018-07-02 07:46 | PN ---
Teaching Attending Note Name of Resident: Kamari Hansen ATTENDING PHYSICIAN STATEMENT I saw and evaluated the patient. I reviewed the resident's note and discussed the case with the resident. I agree with the resident's findings and plan as documented. SUBJECTIVE: Patient seen and examined 57 yo M ex smoker h/o extensive peripheral arterial disease s/p multiple thrombectomy and bypass grafts p/w acute leg pain. Patient was first found to have bilateral occlusion of LE arteries in 2010. After thrombectomy, he was symptom free till 2018. Since 2018, he has had recurrent thrombosis and occluded grafts despite being on AC with coumadin, eliquis, and lovenex. He's later found to have occluded bilateral iliac arteries and R femoral-tibial bypass and underwent axillo bifemoral bypass, thrombectomy R leg bypass graft. Patient denies family history of clotting disorder. He admits 40 pack year history. Discontinued smoking 1 year earlier Last Vital Signs Temp Pulse Resp BP Pulse Ox 98.1 F 100 H 19 112/69 94 L 07/02/18 06:00 07/02/18 06:00 07/02/18 06:00 07/02/18 06:00 07/01/18 21:00 HEENT: MONIQUE, EOM Intact Oropharynx: No thrush, No mucositis right axilla ecchymoses Cor: RSR, No murmurs, No gallops Lungs: diminished breath sounds Abd: Soft, Normal bowel sounds, No organomegaly circumcised male, testes descended Ext:No significant edema, dressing bilateral inguina areas , Skin: No rashes, Integument intact CBC, BMP 07/02/18 05:30 Current Medications Generic Name Dose Route Start Last Admin Trade Name Freq PRN Reason Stop Dose Admin Atorvastatin Calcium 10 mg 06/30/18 22:00 07/01/18 22:40 Lipitor - PO 10 mg HS [facility] Administration Chlorhexidine Gluconate 1 applic 06/30/18 22:00 07/01/18 22:40 Hibiclens For Decolonization - TP 1 applic HS [facility] Administration Gabapentin 300 mg 06/30/18 06:00 07/02/18 05:09 Neurontin - PO 300 mg TID [facility] Administration Heparin Sodium (Porcine) 1,000 unit 06/29/18 22:26 07/01/18 06:58 Heparin - IVPUSH 1,000 unit PRN PRN Administration Heparin Heparin Sodium (Porcine) 5,000 unit 06/29/18 22:26 Heparin - IVPUSH PRN PRN Heparin Hydromorphone HCl 2 mg 06/29/18 21:54 07/02/18 02:59 Dilaudid Vial - IVPB 2 mg Q3H PRN Administration PAIN LEVEL 4 - 6 Hydromorphone HCl 4 mg 06/29/18 21:54 06/30/18 14:30 Dilaudid Vial - IVPB 4 mg Q3H PRN Administration PAIN LEVEL 7 - 10 Heparin Sodium/Dextrose 25,000 units in 500 mls @ 20 mls/hr 06/29/18 22:26 23:46 Heparin Infusion - IVPB 1,300 units/hr TITR [facility] 26 mls/hr Administration Protocol 1,000 UNITS/HR Famotidine/Sodium Chloride 20 mg in 50 mls @ 100 mls/hr 06/30/18 10:00 22:40 Pepcid 20 Mg Premixed Ivpb - IVPB 100 mls/hr BID [facility] Administration Morphine Sulfate 2 mg 06/29/18 22:26 Morphine Sulfate IVPUSH Q4H PRN PAIN LEVEL 1 - 3 Mupirocin 1 applic 06/30/18 10:00 07/01/18 22:41 Bactroban Ointment (For Decolonization) - NS 07/05/18 09:59 1 applic BID [facility] Administration Polyethylene Glycol 17 gm 07/01/18 10:45 07/01/18 11:53 Miralax (For Daily Use) - PO Not Given DAILY [facility] Senna/Docusate Sodium 2 tablet 07/01/18 22:00 07/01/18 23:46 Pericolace - PO 2 tablet BID [facility] Administration Impression: Bilateral Iliac Artery/Right Femoral-Tibial Bypass Occlusions s/p Axillo-Bifemoral Bypass/Thrombectomy RLE Bypass Graft COPD Hyperlipidemia Difficult problem in that patient has been tried on a/c with coumadin, LMWH, and eliquis in past with failure . Can consider evaluation for thrombophilia- FVL, PTgene2, anticardiolipin, beta 2 glycoprotein I,LAC, homocysteine, MTHFR, WILBER,MARK-2 . Hold off on Protein C,S, ATIII as they will be diminished on heparin therapy. Can consider age related malignancy work up. To discuss with Dr. Stoner - OBJECTIVE: ASSESSMENT AND PLAN:
[2018-07-02 08:19] LABS: ALBUMIN 2.6 g/dl (3.4-5.0); ALK PHOS 281 U/L (45-117); ANION GAP 9 MMOL/L (8-16); BILIRUBIN,TOTAL 0.5 mg/dL (0.2-1); BLOOD UREA NITROGEN 13 mg/dL (7-18); CALCIUM 8.3 mg/dL (8.5-10.1); CHLORIDE 98 mmol/L (98-107); CO2 28 mmol/L (21-32); CREATININE 0.8 mg/dL (0.55-1.3); GLUCOSE,RANDOM 113 mg/dL (74-106); MAGNESIUM 1.8 mg/dL (1.8-2.4); PHOSPHOROUS 2.9 mg/dL (2.5-4.9); SGOT/AST 165 U/L (15-37); SGPT/ALT 331 U/L (13-61); SODIUM 135 mmol/L (136-145); TOT PROT 6.1 g/dl (6.4-8.2)
--- NOTE | 2018-07-02 09:27 | PN ---
Progress Note (short form) - Note Progress Note: Surgery POD #3 Right axillary-fem and fem-fem bypass, seen and examined in the ICU with surgical PA team. Patient c/o mild incisional pain. He is voiding, tolerating his diet and denies any CP, SOB, fever, chills, n/v. Vital Signs Temp 98.1 F 07/02/18 06:00 Pulse 104 H 07/02/18 08:00 Resp 16 07/02/18 08:00 BP 119/76 07/02/18 08:00 Pulse Ox 95 07/02/18 08:35 Intake & Output 07/01/18 07/01/18 07/02/18 11:59 23:59 11:59 Intake Total 1400 530 742 Output Total 950 1900 750 Balance 450 -1370 -8 Weight 166 lb 8 oz 162 lb 164 lb 8 oz Intake: IV 1180 10 332 HEPARIN INFUSION - 25,000 280 312 units In 500 ml @ 1,000 UNITS/HR 20 mls/hr IVPB TITR [facility] Rx#:[id number] Normal Saline - 1,000 ml 900 @ 75 mls/hr IV ASDIR [facility] Rx#:[id number] Saline Lock 10 20 IVPB 100 100 50 Oral 120 420 360 Output: Urine 950 1900 750 Void 950 1900 750 Other: Voiding Method Urinal Urinal Urinal Bowel Movement No No No Height 5 ft 10 in Body Mass Index (BMI) 23.2 Weight Measurement Method Built in [facility] Built in [facility] CBC, BMP 07/02/18 05:30 07/02/18 05:30 PE: Gen: A&O X3, NAD REsp: unlabored respirations on RA Chest: Axilla shows ecchymosis, mild tenderness, Rt subclavian incision with levy in situ and surrounding tissue intact, mile edema and erythema appropriate to status. no tracking or evidence of d/c. Diffuse edema along flank where graft is tunnelled, + signal on doppler. B/L groin incisions c/d/i with levy in situ and surrounding tissue intact with no tracking erythema or edema, no d/c or evidence of collection. + signal on doppler over fem/fem graft. LE compartments soft supple and non-tender with well healed scars, B/l feet warm and well perfused with + signal on doppler. Moving all extremities without limitation. Problem List - Problems (1) Arterial occlusion Assessment/Plan: POD #3 axillary-fem and fem-fem bypass patient doing well. 1) Stop heparin drip and start triple therapy per Dr Stoner with Lovenox, Plavix and Aspirin 2) OOB with PT as tolerated-WBAT 3) keep incisions clean and dry 4) downgrade to floor, d/c planning Evaluation and plan discussed with Dr Stoner and Dr Aguilar. Code(s): I70.90 - UNSPECIFIED ATHEROSCLEROSIS
[2018-07-02] MEDS: MUPIROCIN 2% TOPICAL OINTMENT FOR DECOLONIZATION NS SCH (09:33)
[2018-07-02] MEDS: SENNOSIDES/DOCUSATE COMBO (SENNA PLUS) TABLET (UD) PO SCH ×2 (09:34→21:15)
[2018-07-02] MEDS: ASPIRIN COATED 81 MG TABLET.EC PO SCH (09:34)
[2018-07-02] MEDS: CLOPIDOGREL BISULFATE 75 MG TABLET (FP) PO SCH (09:34)
[2018-07-02] MEDS: POLYETHYLENE GLYCOL 3350 119 GM BTL PO SCH (09:37)
[2018-07-02] MEDS: FAMOTIDINE 20 MG/50 ML IVPB 20 MG/50 ML MG IVPB SCH ×2 (09:38→21:15)
[2018-07-02] MEDS: ENOXAPARIN NA (PORCINE) 80 MG/0.8 ML DISP.SYRIN SQ SCH ×2 (11:04→21:15)
--- NOTE | 2018-07-02 11:26 | PN ---
Progress Note, Physician Chief Complaint: patient seen and examined just got back from - Current Medication List Current Medications: Active Medications Aspirin (Ecotrin -) 81 mg PO DAILY [facility] Last Admin: 07/02/18 09:34 Dose: 81 mg Atorvastatin Calcium (Lipitor -) 10 mg PO HS [facility] Last Admin: 07/01/18 22:40 Dose: 10 mg Chlorhexidine Gluconate (Hibiclens For Decolonization -) 1 applic TP HS [facility] Last Admin: 07/01/18 22:40 Dose: 1 applic Clopidogrel Bisulfate (Plavix -) 75 mg PO DAILY [facility] Last Admin: 07/02/18 09:34 Dose: 75 mg Enoxaparin Sodium (Lovenox -) 80 mg SQ BID [facility] Last Admin: 07/02/18 11:04 Dose: 80 mg Gabapentin (Neurontin -) 300 mg PO TID [facility] Last Admin: 07/02/18 05:09 Dose: 300 mg Hydromorphone HCl (Dilaudid Vial -) 2 mg IVPB Q3H PRN PRN Reason: PAIN LEVEL 4 - 6 Last Admin: 07/02/18 09:43 Dose: 2 mg Hydromorphone HCl (Dilaudid Vial -) 4 mg IVPB Q3H PRN PRN Reason: PAIN LEVEL 7 - 10 Last Admin: 06/30/18 14:30 Dose: 4 mg Famotidine/Sodium Chloride (Pepcid 20 Mg Premixed Ivpb -) 20 mg in 50 mls @ 100 mls/hr IVPB BID [facility] Last Admin: 07/02/18 09:38 Dose: 100 mls/hr Morphine Sulfate (Morphine Sulfate) 2 mg IVPUSH Q4H PRN PRN Reason: PAIN LEVEL 1 - 3 Mupirocin (Bactroban Ointment (For Decolonization) -) 1 applic NS BID [facility] Stop: 07/05/18 09:59 Last Admin: 07/02/18 09:33 Dose: Not Given Polyethylene Glycol (Miralax (For Daily Use) -) 17 gm PO DAILY [facility] Last Admin: 07/02/18 09:37 Dose: 17 gm Senna/Docusate Sodium (Pericolace -) 2 tablet PO BID [facility] Last Admin: 07/02/18 09:34 Dose: 2 tablet - Objective Vital Signs: Vital Signs Temperature 98.9 F 07/02/18 10:00 Pulse Rate 86 07/02/18 10:00 Respiratory Rate 07/02/18 10:00 Blood Pressure 120/71 07/02/18 10:00 O2 Sat by Pulse Oximetry (%) 95 07/02/18 08:35 Labs: CBC, BMP 07/02/18 05:30 07/02/18 05:30 INR, PTT INR 1.07 (0.83-1.09) 06/29/18 00:45
--- NOTE | 2018-07-02 11:46 | PN ---
Progress Note (short form) - Note Progress Note: SUBJECTIVE Patient seen and examined at the bedside. Reports pain around surgical sites but not in RLE. Pleasant. OBJECTIVE Vital Signs Temperature 98.9 F 07/02/18 10:00 Pulse Rate 94 H 07/02/18 12:00 Respiratory Rate 18 07/02/18 12:00 Blood Pressure 115/80 07/02/18 12:00 O2 Sat by Pulse Oximetry (%) 95 07/02/18 13:03 General: Alert, Oriented x 3, No acute distress Head: No signs of trauma Eyes: EOMI, sclera anicteric ENT: Dry mucus membranes Neck: decreased ROM Lungs: Lungs CTAB Cardio: Regular rhythm, S1 and S2 present Abdomen: Soft, nondistended, nontender Extremities: BLE distal pulses present with doppler SKIN: Warm, Dry, normal turgor Neurologic: CN II through XII grossly intact. Normal speech ASSESSMENT 57yo M with PMH of PVD and HLD with painful and cold RLE s/p Axillo-bifemoral bypass, POD #3 PLAN Patient stable for transfer to floor CV S/p thrombectomy -monitor pulses with doppler HLD -home atorvastatin SCDs in place IV Heparin Drip to be changed to Lovenox 80 BID, ASA, and Plavix per vascular Heme evaluation -pending Protein C and S, Anticardiolipin profile, Prothrombin [id number] Mut, anticardiolipin AB, Antinuclear AB w/rfx, Homocysteine-plasma or serum, lupus anticoagulant eval, methylene tetrahydrofolate PAIN Famotidine 20mg for GI Morphine 2mg IV q4h PRN for pain 1-3/10 Dilaudid 2mg IV q4h PRN for pain 4-6/10 Dilaudid 4mg IV q4h PRN for pain 7-10/10 Patients home gabapentin GI Transaminitis worsened today ALT 331 (was 224), AST 165 (was 199) 07/02 CTAP: "development of portal venous air since 06/29/2018. This suggests bowel ischemia/infection" -Lactate 0.7 -No peritoneal signs on exam -Surgery has been consulted by primary team -Discussed case with Dr. Stoner who requested consult to GI, Dr. Santos FEN Monitor electrolytes -Replete as needed -Ca low at 8.3 but normal when corrected for low albumin (2.6) Patient tolerating po intake
--- NOTE | 2018-07-02 12:07 | PN ---
Teaching Attending Note Name of Resident: Reyna Syed ATTENDING PHYSICIAN STATEMENT I saw and evaluated the patient. I reviewed the resident's note and discussed the case with the resident. I agree with the resident's findings and plan as documented. SUBJECTIVE: Patient seen and examined in the ICU. Awake and alert. Pain seems adequately controlled. No CP or SOB. On IV Heparin drip. Seen by vascular surgery this AM. Intake & Output 06/29/18 06/30/18 07/01/18 07/02/18 23:59 23:59 23:59 23:59 Intake Total 2050 2512.9 1930 742 Output Total 1700 2650 2850 750 Balance 350 -137.1 -920 -8 Weight 162 lb 8 oz 162 lb 164 lb 8 oz Last Vital Signs Temp Pulse Resp BP Pulse Ox 98.9 F 86 19 120/71 95 07/02/18 10:00 07/02/18 10:00 07/02/18 10:00 07/02/18 10:00 07/02/18 08:35 Active Medications Aspirin (Ecotrin -) 81 mg PO DAILY [facility] Last Admin: 07/02/18 09:34 Dose: 81 mg Atorvastatin Calcium (Lipitor -) 10 mg PO HS [facility] Last Admin: 07/01/18 22:40 Dose: 10 mg Chlorhexidine Gluconate (Hibiclens For Decolonization -) 1 applic TP [facility] Last Admin: 07/01/18 22:40 Dose: 1 applic Clopidogrel Bisulfate (Plavix -) 75 mg PO DAILY [facility] Last Admin: 07/02/18 09:34 Dose: 75 mg Enoxaparin Sodium (Lovenox -) 80 mg SQ BID [facility] Last Admin: 07/02/18 11:04 Dose: 80 mg Gabapentin (Neurontin -) 300 mg PO TID [facility] Last Admin: 07/02/18 05:09 Dose: 300 mg Hydromorphone HCl (Dilaudid Vial -) 2 mg IVPB Q3H PRN PRN Reason: PAIN LEVEL 4 - 6 Last Admin: 07/02/18 09:43 Dose: 2 mg Hydromorphone HCl (Dilaudid Vial -) 4 mg IVPB Q3H PRN PRN Reason: PAIN LEVEL 7 - 10 Last Admin: 06/30/18 14:30 Dose: 4 mg Famotidine/Sodium Chloride (Pepcid 20 Mg Premixed Ivpb -) 20 mg in 50 mls @ 100 mls/hr IVPB BID [facility] Last Admin: 07/02/18 09:38 Dose: 100 mls/hr Morphine Sulfate (Morphine Sulfate) 2 mg IVPUSH Q4H PRN PRN Reason: PAIN LEVEL 1 - 3 Mupirocin (Bactroban Ointment (For Decolonization) -) 1 applic NS BID [facility] Stop: 07/05/18 09:59 Last Admin: 07/02/18 09:33 Dose: Not Given Polyethylene Glycol (Miralax (For Daily Use) -) 17 gm PO DAILY [facility] Last Admin: 07/02/18 09:37 Dose: 17 gm Senna/Docusate Sodium (Pericolace -) 2 tablet PO BID [facility] Last Admin: 07/02/18 09:34 Dose: 2 tablet Constitutional: Yes: No Distress, Awake and alert Eyes: Yes: Conjunctiva Clear, EOM Intact HENT: Yes: Atraumatic, Normocephalic Neck: Yes: Supple, Trachea Midline Cardiovascular: Yes: Regular Rate and Rhythm. No: Murmur Respiratory: Yes: Regular, CTA Bilaterally (anterior auscultation) Gastrointestinal: Yes: Normal Bowel Sounds, Soft, Other (well-healed abdominal scar) Extremities: Yes: doppler pulses b/l DP and posterior tibial, right foot is cooler than left. No: Calf Tenderness Edema: No Integumentary: Yes: all sites are CDI Neurological: Yes: Alert, Oriented Labs: Laboratory Results - last 24 hr 07/01/18 07/02/18 07/02/18 12:30 05:30 05:30 WBC 10.8 H RBC 3.87 L Hgb 11.8 Hct 35.5 MCV 91.7 MCH 30.5 MCHC 33.3 RDW 15.7 Plt Count 265 MPV 7.3 L Absolute Neuts (auto) 7.8 Neutrophils % 72.4 D Lymphocytes % 18.1 D Monocytes % 8.2 Eosinophils % 0.8 Basophils % 0.5 Nucleated RBC % 0 PTT (Actin FS) 54.9 H 56.8 H Sodium Potassium Chloride Carbon Dioxide Anion Gap BUN Creatinine Creat Clearance w eGFR Random Glucose Calcium Phosphorus Magnesium Total Bilirubin AST ALT Alkaline Phosphatase Total Protein Albumin 07/02/18 05:30 WBC RBC Hgb Hct MCV MCH MCHC RDW Plt Count MPV Absolute Neuts (auto) Neutrophils % Lymphocytes % Monocytes % Eosinophils % Basophils % Nucleated RBC % PTT (Actin FS) Sodium 135 L Potassium 4.0 Chloride 98 Carbon Dioxide 28 Anion Gap 9 BUN 13 Creatinine 0.8 Creat Clearance w eGFR > 60 Random Glucose 113 H Calcium 8.3 L Phosphorus 2.9 Magnesium 1.8 Total Bilirubin 0.5 AST 165 H ALT 331 H Alkaline Phosphatase 281 H Total Protein 6.1 L Albumin 2.6 L Assessment/Plan POD #1: Axillo bifemoral bypass, thrombectomy right leg bypass graft, and angiogram due to an acute arterial occlusion both iliac arteries, right femoral- tibial bypass History of extensive vascular interventions for recurrent thrombosis COPD HPL Will be maintained on Lovenox / ASA / Plavix per vascular surgery O2 as needed BD TX PRN No smoking Heme work up ongoing Bowel regimen Lipitor Floor Dr Felipe =
--- NOTE | 2018-07-02 12:17 | PN ---
Progress Note, Physician Chief Complaint: patient back from CT scan shows portal venous air - Current Medication List Current Medications: Active Medications Aspirin (Ecotrin -) [address] [facility] Last Admin: 07/02/18 09:34 Dose: 81 mg Atorvastatin Calcium (Lipitor -) [address] [facility] Last Admin: 07/01/18 22:40 Dose: 10 mg Chlorhexidine Gluconate (Hibiclens For Decolonization -) [address] [facility] Last Admin: 07/01/18 22:40 Dose: 1 applic Clopidogrel Bisulfate (Plavix -) [address] [facility] Last Admin: 07/02/18 09:34 Dose: 75 mg Enoxaparin Sodium (Lovenox -) [address] [facility] Last Admin: 07/02/18 11:04 Dose: 80 mg Gabapentin (Neurontin -) [address] [facility] Last Admin: 07/02/18 05:09 Dose: 300 mg Hydromorphone HCl (Dilaudid Vial -) 2 mg IVPB Q3H PRN PRN Reason: PAIN LEVEL 4 - 6 Last Admin: 07/02/18 09:43 Dose: 2 mg Hydromorphone HCl (Dilaudid Vial -) 4 mg IVPB Q3H PRN PRN Reason: PAIN LEVEL 7 - 10 Last Admin: 06/30/18 14:30 Dose: 4 mg Famotidine/Sodium Chloride (Pepcid 20 Mg Premixed Ivpb -) 20 mg in 50 mls @ 100 mls/hr IVPB BID [facility] Last Admin: 07/02/18 09:38 Dose: 100 mls/hr Morphine Sulfate (Morphine Sulfate) 2 mg IVPUSH Q4H PRN PRN Reason: PAIN LEVEL 1 - 3 Mupirocin (Bactroban Ointment (For Decolonization) -) [address] [facility] Stop: 07/05/18 09:59 Last Admin: 07/02/18 09:33 Dose: Not Given Polyethylene Glycol (Miralax (For Daily Use) -) [address] [facility] Last Admin: 07/02/18 09:37 Dose: 17 gm Senna/Docusate Sodium (Pericolace -) [address] [facility] Last Admin: 07/02/18 09:34 Dose: 2 tablet - Objective Vital Signs: Vital Signs Temperature 98.9 F 07/02/18 10:00 Pulse Rate 92 H 07/02/18 12:00 Respiratory Rate 16 07/02/18 12:00 Blood Pressure 115/80 07/02/18 12:00 O2 Sat by Pulse Oximetry (%) 95 07/02/18 08:35 Constitutional: Yes: Calm Cardiovascular: Yes: Regular Rate and Rhythm, S1, S2 Respiratory: Yes: CTA Bilaterally Gastrointestinal: Yes: Normal Bowel Sounds, Soft Edema: No Wound/Incision: Yes: Other (incision on groin slightly tender) Labs: CBC, BMP 07/02/18 05:30 07/02/18 05:30 INR, PTT INR 1.07 (0.83-1.09) 06/29/18 00:45 Problem List - Problems (1) Arterial occlusion, lower extremity Assessment/Plan: bifemoral bypass and thrombectomy lovenox and plavix Code(s): I70.209 - UNSP ATHSCL [place] ARTERIES OF EXTREMITIES, UNSP EXTREMITY (2) Iliac artery occlusion, bilateral Assessment/Plan: thrombectomy done surgery saw patient Code(s): I74.5 - EMBOLISM AND THROMBOSIS OF ILIAC ARTERY (3) Abnormal CT scan Assessment/Plan: hima get surgery to saw patient Code(s): R93.89 - ABNORMAL FINDINGS ON DX IMAGING OF OTH BODY STRUCTURES
--- NOTE | 2018-07-02 13:18 | PN ---
Progress Note, Physician History of Present Illness: Patient seen and examined at bedside. Stated feeling better and no complaint. No acute event overnight per RN in charge. - Current Medication List Current Medications: Active Medications Aspirin (Ecotrin -) 81 mg PO DAILY [facility] Last Admin: 07/02/18 09:34 Dose: 81 mg Atorvastatin Calcium (Lipitor -) 10 mg PO HS [facility] Last Admin: 07/01/18 22:40 Dose: 10 mg Chlorhexidine Gluconate (Hibiclens For Decolonization -) 1 applic TP HS [facility] Last Admin: 07/01/18 22:40 Dose: 1 applic Clopidogrel Bisulfate (Plavix -) 75 mg PO DAILY [facility] Last Admin: 07/02/18 09:34 Dose: 75 mg Enoxaparin Sodium (Lovenox -) 80 mg SQ BID [facility] Last Admin: 07/02/18 11:04 Dose: 80 mg Gabapentin (Neurontin -) 300 mg PO TID [facility] Last Admin: 07/02/18 05:09 Dose: 300 mg Hydromorphone HCl (Dilaudid Vial -) 2 mg IVPB Q3H PRN PRN Reason: PAIN LEVEL 4 - 6 Last Admin: 07/02/18 09:43 Dose: 2 mg Hydromorphone HCl (Dilaudid Vial -) 4 mg IVPB Q3H PRN PRN Reason: PAIN LEVEL 7 - 10 Last Admin: 06/30/18 14:30 Dose: 4 mg Famotidine/Sodium Chloride (Pepcid 20 Mg Premixed Ivpb -) 20 mg in 50 mls @ 100 mls/hr IVPB BID [facility] Last Admin: 07/02/18 09:38 Dose: 100 mls/hr Morphine Sulfate (Morphine Sulfate) 2 mg IVPUSH Q4H PRN PRN Reason: PAIN LEVEL 1 - 3 Mupirocin (Bactroban Ointment (For Decolonization) -) 1 applic NS BID [facility] Stop: 07/05/18 09:59 Last Admin: 07/02/18 09:33 Dose: Not Given Polyethylene Glycol (Miralax (For Daily Use) -) 17 gm PO DAILY [facility] Last Admin: 07/02/18 09:37 Dose: 17 gm Senna/Docusate Sodium (Pericolace -) 2 tablet PO BID [facility] Last Admin: 07/02/18 09:34 Dose: 2 tablet - Objective Vital Signs: Vital Signs Temperature 98.9 F 01/17/19 10:00 Pulse Rate 94 H 07/02/18 12:00 Respiratory Rate 18 07/02/18 12:00 Blood Pressure 115/80 07/02/18 12:00 O2 Sat by Pulse Oximetry (%) 95 07/02/18 13:03 Constitutional: Yes: No Distress, Calm Eyes: Yes: Conjunctiva Clear, EOM Intact HENT: Yes: Atraumatic, Normocephalic Neck: Yes: Supple, Trachea Midline Cardiovascular: Yes: Regular Rate and Rhythm, S1, S2. No: Murmur Respiratory: Yes: CTA Bilaterally Gastrointestinal: Yes: Normal Bowel Sounds, Soft. No: Tenderness Edema: No Peripheral Pulses WNL: Yes (R bilateral DP palpable by hand) Wound/Incision: Yes: Dressing Dry and Intact Neurological: Yes: Alert, Oriented Labs: CBC, BMP 07/02/18 05:30 07/02/18 05:30 INR, PTT INR 1.07 (0.83-1.09) 06/29/18 00:45 Impression/Plan Impression/Plan: 57 yo M ex smoker h/o extensive peripheral arterial disease s/p multiple thrombectomy and bypass grafts with recurrent stenosis and occlusions p/w acute leg pain. He's now s/p axillo-bifemoral bypass and thrombectomy POD 3. Extensive PAD s/p multiple thrombectomies and bypass grafts with recurrent stenosis and occlusions 1. sent FVL, PTgene2, anticardiolipin, beta 2 glycoprotein I,LAC, homocysteine, MTHFR, WILBER,MARK-2 2. rest of work up will be done later on when patient is off heparin 3. started triple therapeutic AC: plavix, asa, and lovenex per vascular Kamari Hansen PGY3 Visit type - Emergency Visit Emergency Visit: No - New Patient This patient is new to me today: No - Critical Care Critical Care patient: Yes Total Critical Care Time (in minutes): 35 Critical Care Statement: The care of this patient involved high complexity decision making to prevent further life threatening deterioration of the patient 's condition and/or to evaluate & treat vital organ system(s) failure or risk of failure.
--- NOTE | 2018-07-02 15:28 | CONSULT ---
Consult Consult Specialty:: General Surgery Reason for Consultation:: portal gas, r/o bowel ischemia? - History of Present Illness Chief Complaint: No complaints History of Present Illness: 57 yo male PMH PAD former smoker s/p multiple thrombectomy and bypass grafts p/ w acute leg pain. Patient was first found to have bilateral occlusion of LE arteries in 2010. After thrombectomy, he was symptom free till 2018. Since 2018 , he has had recurrent thrombosis and occluded grafts despite being on AC with coumadin, eliquis, and lovenex. He's later found to have occluded bilateral iliac arteries and R femoral-tibial bypass and underwent axillo bifemoral bypass , thrombectomy R leg bypass graft. Patient denies family history of clotting disorder. He admits 40 pack year history. Now being monitored in the ICU postoperatively. he has been tolerating diet. having completely normal GI function. Reports no abdominal pain. CT scan shows portal venous gas and some look of small bowel which appeared atypical and we were called to evaluate. - History Source History Provided By: Patient, Medical Record Limitations to Obtaining History: No Limitations - Past Medical History Cardio/Vascular: Yes: HTN, Hyperlipdemia, Other (peripheral arterial disease) Renal/: Yes: Renal Calculi - Past Surgical History Past Surgical History: Yes: Bypass - Alcohol/Substance Use Hx Alcohol Use: No History of Substance Use: reports: None - Smoking History Smoking history: Former smoker Have you smoked in the past 12 months: No Aproximately how many cigarettes per day: 0 If you are a former smoker, when did you quit?: more than one year ago - Social History Usual Living Arrangement: [facility] ADL: Independent History of Recent Travel: No Home Medications - Allergies Allergies/Adverse Reactions: Allergies Allergy/AdvReac Type Severity Reaction Status Date / Time Penicillins Allergy Verified 06/28/18 23:37 - Home Medications Home Medications: Ambulatory Orders Aspirin [ASA -] 81 mg PO DAILY #30 tab.chew 12/02/17 Enoxaparin Sodium [Lovenox] 80 mg SQ BID #60 syringe 12/02/17 Gabapentin [Neurontin] 300 mg PO TID 03/12/18 Simvastatin 20 mg PO HS 03/12/18 Aspirin Coated [Ecotrin -] 81 mg PO DAILY #30 tablet.ec 07/02/18 Clopidogrel Bisulfate [Plavix] 75 mg PO DAILY #30 tablet 01/17/19 Enoxaparin Sodium [Lovenox] 80 mg SQ BID #30 syringe 07/02/18 Review of Systems - Review of Systems Constitutional: denies: Chills, Fever Eyes: denies: Blind Spots, Recent Change in Vision HENT: denies: Difficult Swallowing, Throat Pain Neck: denies: Decreased ROM, Pain on Movement, Tenderness Cardiovascular: denies: Chest Pain, Palpitations Respiratory: denies: Cough, SOB Gastrointestinal: denies: Abdominal Pain, Constipation, Diarrhea, Indigestion, Melena, Nausea, Vomiting Genitourinary: denies: Dysuria Breasts: reports: No Symptoms Reported. denies: Pain Musculoskeletal: denies: Crepitus, Decreased ROM, Muscle Weakness Integumentary: denies: Erythema, Pruritis, Rash Neurological: denies: Seizure, Syncope Endocrine: denies: Unexplained Weight Gain, Unexplained Weight Loss Hematology/Lymphatic: denies: Easily Bruised, Excessive Bleeding Psychiatric: denies: Anxiety, Depression Physical Exam Vital Signs: Vital Signs Temperature 98.0 F 07/02/18 15:00 Pulse Rate 94 H 07/02/18 14:00 Respiratory Rate 17 07/02/18 14:00 Blood Pressure 114/69 07/02/18 14:00 O2 Sat by Pulse Oximetry (%) 95 07/02/18 13:03 Vital Signs Period Temp Pulse Resp BP Sys/White Pulse Ox Last 24 Hr 97.8 F-98.9 F 86-104 11-22 101-129/65-80 94-95 Constitutional: Yes: Well Nourished, No Distress, Calm Eyes: Yes: Conjunctiva Clear, EOM Intact HENT: Yes: Atraumatic, Normocephalic Neck: Yes: Supple, Trachea Midline Cardiovascular: Yes: Regular Rate and Rhythm, S1, S2 Respiratory: Yes: Regular, CTA Bilaterally Gastrointestinal: Yes: Normal Bowel Sounds, Soft. No: Pulsatile Mass, Tenderness, Tenderness, Epigastrium, Tenderness, Rebound ...Rectal Exam: Yes: Deferred Renal/: No: CVA Tenderness - Left, CVA Tenderness - Right Breast(s): No: Discharge from Nipple, Gynecomastia Musculoskeletal: No: Joint Stiffness, Joint Swelling, Muscle Weakness Extremities: No: Cool, Cyanosis Edema: No Peripheral Pulses WNL: Yes Integumentary: Yes: Incision Wound/Incision: Yes: Clean/Dry, Well Approximated Neurological: Yes: Alert, Oriented Psychiatric: Yes: Alert, Oriented Labs: CBC, BMP 07/02/18 05:30 07/02/18 05:30 Imaging - Results Cat Scan: Report Reviewed, Image Reviewed (portal venous gas. small bowel distension) Problem List - Problems (1) Abnormal CT scan Assessment/Plan: 57yo male with an abdominal CT scan showing portal venous gas, recent vascular procedure, long standing extra-anatomical aortic bypass. chronic aordtic thoracoabdominal thrombosis. he has no clinical signs of acute bowel ischemia or GI angina. he is tolerating diet and have normal GI fucntion. Lactic acid is normal. no indication for acute surgical intervention. Continue diet as toleated medical management Vascular surgery followup will follow This patient is critically ill. Time spent reviewing chart, examining patient, talking with providers and/or family and documentation is 45 minutes. Thank you for the opportunity to participate in the care of this patient. Code(s): R93.89 - ABNORMAL FINDINGS ON DX IMAGING OF OTH BODY STRUCTURES (2) Arterial occlusion Code(s): I70.90 - UNSPECIFIED ATHEROSCLEROSIS (3) HLD (hyperlipidemia) Code(s): E78.5 - HYPERLIPIDEMIA, UNSPECIFIED Qualifiers: Hyperlipidemia type: pure hypercholesterolemia Qualified Code(s): E78.00 - Pure hypercholesterolemia, unspecified; E78.0 - Pure hypercholesterolemia (4) Thrombosis of aortic bifurcation bypass graft Code(s): T82.868A - THROMBOSIS DUE TO VASCULAR PROSTH DEV/GRFT, INIT Qualifiers: Encounter type: subsequent encounter Qualified Code(s): T82.868D - Thrombosis due to vascular prosthetic devices, implants and grafts, subsequent encounter (5) Thrombosis of femoro-popliteal bypass graft Code(s): T82.868A - THROMBOSIS DUE TO VASCULAR PROSTH DEV/GRFT, INIT Qualifiers: Encounter type: initial encounter Qualified Code(s): T82.868A - Thrombosis due to vascular prosthetic devices, implants and grafts, initial encounter
--- NOTE | 2018-07-02 19:49 | CON.GI ---
Consult Consult Specialty:: GI Reason for Consultation:: Portal venous air, air in wall of dilated small bowel - History of Present Illness Chief Complaint: Pt admitted with vascular occlusions of LEs History of Present Illness: 57 y.o. M with severe peripheral vascular disease requiring surgical intervention. Noted to have portal venous air on CT scan done today, also air in wall of a dilated loop of small bowel. Pt denies any abdominal pain, is eating well, passing flatus. - Past Medical History Cardio/Vascular: Yes: HTN, Hyperlipdemia, Other (peripheral arterial disease) Renal/: Yes: Renal Calculi - Past Surgical History Past Surgical History: Yes: Bypass - Alcohol/Substance Use Hx Alcohol Use: No History of Substance Use: reports: None - Smoking History Smoking history: Former smoker Have you smoked in the past 12 months: No Aproximately how many cigarettes per day: 0 If you are a former smoker, when did you quit?: more than one year ago - Social History Usual Living Arrangement: [facility] ADL: Independent History of Recent Travel: No Home Medications - Allergies Allergies/Adverse Reactions: Allergies Allergy/AdvReac Type Severity Reaction Status Date / Time Penicillins Allergy Verified 06/28/18 23:37 - Home Medications Home Medications: Ambulatory Orders Aspirin [ASA -] 81 mg PO DAILY #30 tab.chew 12/02/17 Enoxaparin Sodium [Lovenox] 80 mg SQ BID #60 syringe 12/02/17 Gabapentin [Neurontin] 300 mg PO TID 03/12/18 Simvastatin 20 mg PO HS 03/12/18 Aspirin Coated [Ecotrin -] 81 mg PO DAILY #30 tablet.ec 07/02/18 Clopidogrel Bisulfate [Plavix] 75 mg PO DAILY #30 tablet 07/02/18 Enoxaparin Sodium [Lovenox] 80 mg SQ BID #30 syringe 07/02/18 Physical Exam-GI Vital Signs: Vital Signs Temperature 98.4 F 07/02/18 18:00 Pulse Rate 102 H 07/02/18 18:00 Respiratory Rate 20 07/02/18 18:00 Blood Pressure 122/68 07/02/18 18:00 O2 Sat by Pulse Oximetry (%) 95 07/02/18 13:03 Gastrointestinal Inspection: No: WNL, Ascites, Distention, Hernia, Scars, Other ...Auscultate: Yes: Normoactive Bowel Sounds Labs: CBC, BMP 07/02/18 05:30 07/02/18 05:30 INR, PTT INR 1.07 (0.83-1.09) 06/29/18 00:45 Imaging - Results Cat Scan: Report Reviewed (Agree with finding as reported of portal venous air and air in wall of a dilated small bowel loop.), Image Reviewed Assessment/Plan Almost certainly Mr Dave has sustained an ischemic injury to the small bowel, possibly embolic. He is on maximal anticoagulant therapy. Would defer to Dr tSoner as to whether an MR angiogram of the celiac axis would be useful. He has no symptoms now and has a normal lactate which is reassuring but if he throws another embolus to the small bowel he could deteriorate rapidly. I discussed the case with Dr Stoner who is aware of the issues. Maximal medical therapy is the way to go at present.
[2018-07-02] MEDS ORDERED: HYDROmorphone HCl 2 MG/ML VIAL IVPB PRN ×2 (20:33)
[2018-07-02] MEDS ORDERED: HEPARIN NA (PORCINE) 5,000 UNITS/ML 1ML VIAL IVPUSH PRN ×2 (20:33)
[2018-07-02] MEDS: ATORVASTATIN CA 10 MG TABLET (FP) PO SCH (21:15)
[2018-07-02] MEDS ORDERED: MUPIROCIN 2% TOPICAL OINTMENT FOR DECOLONIZATION NS SCH (22:00)
[2018-07-02] MEDS ORDERED: CHLORHEXIDINE GLUCONATE 4% CLEANSER FOR DECOLONIZATION TP SCH (22:00)
[2018-07-03] MEDS: GABAPENTIN 300 MG CAPSULE (FP) PO SCH ×3 (06:04→22:49)
[2018-07-03] MEDS: MORPHINE SULFATE 2 MG/ML VIAL IVPUSH PRN ×2 (06:30→22:49)
[2018-07-03 07:28] LABS: HEMATOCRIT 35.1 % (35.4-49); HEMOGLOBIN 11.8 GM/dL (11.7-16.9); MCH 30.7 pg (25.7-33.7); MCHC 33.7 g/dl (32.0-35.9); MEAN PLT VOLUME 7.4 fl (7.5-11.1); PLATELET COUNT 288 K/MM3 (134-434); RBC 3.85 M/mm3 (4.00-5.60); RDW 15.6 % (11.9-15.9); WHITE BLOOD COUNT 11.4 K/mm3 (4.0-10.0)
[2018-07-03] MEDS ORDERED: ACETAMINOPHEN 325 MG TABLET (FP) PO PRN ×2 (08:34)
--- NOTE | 2018-07-03 08:34 | PN ---
Progress Note (short form) - Note Progress Note: No new complaints. Denies abdominal pain. No BM Wounds dry Feet warm, 1+ PT palp right WBC 11.4 Stable vascular exam Portal air without evidence for severe abdominal infection. Will observe, increase activity Problem List - Problems (1) Arterial occlusion, lower extremity Code(s): I70.209 - UNSP ATHSCL [place] ARTERIES OF EXTREMITIES, UNSP EXTREMITY
[2018-07-03] MEDS ORDERED: oxyCODONE HCL 5 MG TABLET PO PRN ×2 (08:44→08:47)
[2018-07-03 08:49] LABS: ALBUMIN 2.6 g/dl (3.4-5.0); ALK PHOS 287 U/L (45-117); ANION GAP 5 MMOL/L (8-16); BILIRUBIN,TOTAL 0.4 mg/dL (0.2-1); BLOOD UREA NITROGEN 13 mg/dL (7-18); CALCIUM 9.1 mg/dL (8.5-10.1); CHLORIDE 98 mmol/L (98-107); CO2 30 mmol/L (21-32); CREATININE 0.8 mg/dL (0.55-1.3); GLUCOSE,RANDOM 103 mg/dL (74-106); MAGNESIUM 2.1 mg/dL (1.8-2.4); SGOT/AST 59 U/L (15-37); SGPT/ALT 207 U/L (13-61); SODIUM 134 mmol/L (136-145); TOT PROT 6.1 g/dl (6.4-8.2)
--- NOTE | 2018-07-03 09:04 | PN ---
Progress Note (short form) - Note Progress Note: POD #4, s/p Right axillary-fem and fem-fem bypass Pt seen and examined on med-surg floor. Reports he was transferred overnight. Has not slept well due to discomfort from the mattress. Was oob with PT yesterday. Tolerating PO. Voiding without issue. Patient c/o mild incisional pain. Denies any CP, SOB, fever, chills, n/v. Vital Signs Temp 97.8 F 07/03/18 06:00 Pulse 95 H 07/03/18 06:00 Resp 20 07/03/18 06:00 BP 115/74 07/03/18 06:00 Pulse Ox 95 07/02/18 21:00 Intake & Output 07/02/18 07/02/18 07/03/18 11:59 23:59 11:59 Intake Total 742 1245 Output Total 750 1950 Balance -8 -705 Weight 164 lb 8 oz 163 lb 9.6 oz Intake: IV 332 65 HEPARIN INFUSION - 25,000 312 65 units In 500 ml @ 1,000 UNITS/HR 20 mls/hr IVPB TITR GERALD Rx#:[id number] Saline Lock 20 IVPB 50 400 Oral 360 780 Output: Urine 750 1950 Void 750 1950 Other: Voiding Method Urinal Urinal # Unmeasured Voids Void 1 Bowel Movement No No No Weight Measurement Method Built in Bedscale Built in Bedscale CBC, BMP 07/03/18 06:30 07/03/18 06:30 Gen: A&O X3, NAD Resp:: unlabored respirations on RA Abdomen: soft, nt/nd Chest/Groin: Some ecchymosis in R axilla, mild ttp. Rt subclavian incision with dressing intact, mild serosanguininous drainage. +edema appropriate to status. B /L groin incisions c/d/i, minimal surrounding edema, no evidence of collection. + faintly palpable PT RLE LE compartments soft supple and non-tender with well healed scars, B/l feet warm and well perfused Moving all extremities without limitation. Vasc: Triphasic doppler signal over ax-fem, fem-fem, R fem-PT, L dpa 57 y/o M w/ PMHx hld, extensive vascular history, s/p aortobifemoral bypass in 2011, R femoral-tibial bypass in October 2017 on therapeutic lovenox, s/p multiple thrombectomies of bypass, s/p Right ilio-tibial bypass with non-reversed saphenous vein (04/08), s/p Open thrombectomy right leg bypass. Angiogram and angioplasty posterior tibial artery. Infusion TPA and NTG into foot on 06/25, re -occluded 06/28, now s/p Right axillary-fem and fem-fem bypass. GI consult appreciated: sustained an ischemic injury to the small bowel, possibly embolic. Pt without abdominal pain or sxs. Labs reviewed, liver enzymes improving. -Continue AC with Lovenox 80mg bid, asa 81mg qd, Plavix 75mg qd -OOB with PT as tolerated-WBAT -keep incisions clean and dry -Pain control as ordered -Recheck Am labs -d/c planning above d/w attending Dr Stoner
[2018-07-03] MEDS ORDERED: POLYETHYLENE GLYCOL 3350 119 GM BTL PO SCH (10:00)
[2018-07-03] MEDS: SENNOSIDES/DOCUSATE COMBO (SENNA PLUS) TABLET (UD) PO SCH ×2 (10:11→22:49)
[2018-07-03] MEDS: ASPIRIN COATED 81 MG TABLET.EC PO SCH (10:11)
[2018-07-03] MEDS: CLOPIDOGREL BISULFATE 75 MG TABLET (FP) PO SCH (10:11)
[2018-07-03] MEDS: FAMOTIDINE 20 MG/50 ML IVPB 20 MG/50 ML MG IVPB SCH (10:12)
[2018-07-03] MEDS: ENOXAPARIN NA (PORCINE) 80 MG/0.8 ML DISP.SYRIN SQ SCH ×2 (10:12→22:49)
--- NOTE | 2018-07-03 11:22 | PN ---
Progress Note, Physician Chief Complaint: Right leg arterial occlusion Portal Venous air History of Present Illness: NAD resting Denies any pain Seen by Vascular surgery General surgery Abdominal CT scan showing portal venous gas, recent vascular procedure, long standing extra-anatomical aortic bypass. chronic aortic thoracoabdominal thrombosis. Tolerating PO intake - Current Medication List Current Medications: Active Medications Acetaminophen (Tylenol -) 325 mg PO Q4H PRN PRN Reason: PAIN LEVEL 1-5 Acetaminophen (Tylenol -) 650 mg PO Q4H PRN PRN Reason: PAIN LEVEL 6-10 Aspirin (Ecotrin -) 81 mg PO DAILY [facility] Last Admin: 07/03/18 10:11 Dose: 81 mg Atorvastatin Calcium (Lipitor -) 10 mg PO HS [facility] Last Admin: 07/02/18 21:15 Dose: 10 mg Clopidogrel Bisulfate (Plavix -) 75 mg PO DAILY [facility] Last Admin: 07/03/18 10:11 Dose: 75 mg Enoxaparin Sodium (Lovenox -) 80 mg SQ BID [facility] Last Admin: 07/03/18 10:12 Dose: 80 mg Gabapentin (Neurontin -) 300 mg PO TID [facility] Last Admin: 07/03/18 06:04 Dose: 300 mg Famotidine/Sodium Chloride (Pepcid 20 Mg Premixed Ivpb -) 20 mg in 50 mls @ 100 mls/hr IVPB BID [facility] Last Admin: 07/03/18 10:12 Dose: 100 mls/hr Morphine Sulfate (Morphine Sulfate) 2 mg IVPUSH Q4H PRN PRN Reason: PAIN LEVEL 1 - 3 Last Admin: 07/03/18 06:30 Dose: 2 mg Oxycodone HCl (Roxicodone -) 5 mg PO Q4H PRN PRN Reason: PAIN LEVEL 1-5 Oxycodone HCl (Roxicodone -) 10 mg PO Q4H PRN PRN Reason: PAIN LEVEL 6-10 Polyethylene Glycol (Miralax (For Daily Use) -) 17 gm PO DAILY [facility] Last Admin: 07/03/18 10:12 Dose: 17 gm Senna/Docusate Sodium (Pericolace -) 2 tablet PO BID [facility] Last Admin: 07/03/18 10:11 Dose: 2 tablet - Objective Vital Signs: Vital Signs Temperature 97.8 F 07/03/18 06:00 Pulse Rate 95 H 07/03/18 06:00 Respiratory Rate 20 01/18/19 06:00 Blood Pressure 115/74 07/03/18 06:00 O2 Sat by Pulse Oximetry (%) 95 07/02/18 21:00 Constitutional: Yes: Well Nourished, No Distress, Calm Cardiovascular: Yes: Regular Rate and Rhythm Respiratory: Yes: Regular Gastrointestinal: Yes: Normal Bowel Sounds, Soft Musculoskeletal: Yes: WNL Extremities: Yes: WNL Edema: No Peripheral Pulses WNL: Yes Neurological: Yes: Alert, Oriented Psychiatric: Yes: Alert, Oriented Labs: CBC, BMP 07/03/18 06:30 07/03/18 06:30 INR, PTT INR 1.07 (0.83-1.09) 06/29/18 00:45 Problem List - Problems (1) Arterial occlusion, lower extremity Assessment/Plan: -Axillo bifemoral bypass, thrombectomy right leg bypass graft Code(s): I70.209 - UNSP ATHSCL [place] ARTERIES OF EXTREMITIES, UNSP EXTREMITY (2) Thrombosis of aortic bifurcation bypass graft Code(s): T82.868A - THROMBOSIS DUE TO VASCULAR PROSTH DEV/GRFT, INIT Qualifiers: Encounter type: subsequent encounter Qualified Code(s): T82.868D - Thrombosis due to vascular prosthetic devices, implants and grafts, subsequent encounter (3) Thrombosis of femoro-popliteal bypass graft Code(s): T82.868A - THROMBOSIS DUE TO VASCULAR PROSTH DEV/GRFT, INIT Qualifiers: Encounter type: initial encounter Qualified Code(s): T82.868A - Thrombosis due to vascular prosthetic devices, implants and grafts, initial encounter (4) Portal system vein injury Assessment/Plan: Portal venous air -Seen by Vascular surgery -observe another day Code(s): S35.319A - UNSPECIFIED INJURY OF PORTAL VEIN, INITIAL ENCOUNTER Assessment/Plan See problem list Did well with Physical therapy
--- NOTE | 2018-07-03 12:41 | PN ---
Progress Note (short form) - Note Progress Note: Patient seen and examined Offers no specific complaints Last Vital Signs Temp Pulse Resp BP Pulse Ox 97.8 F 95 H 20 115/74 95 07/03/18 06:00 07/03/18 06:00 07/03/18 06:00 07/03/18 06:00 07/02/18 21:00 HEENT: MONIQUE, EOM Intact Cor: RSR, No murmurs, No gallops Lungs: Clear to P&A Abd: Soft, Normal bowel sounds, No organomegaly Ext:No significant edema, right foot wrm Skin: No rashes, Integument intact, dressings dry CBC, BMP 07/03/18 06:30 07/03/18 06:30 Current Medications Generic Name Dose Route Start Last Admin Trade Name Freq PRN Reason Stop Dose Admin Acetaminophen 325 mg 07/03/18 08:34 Tylenol - PO Q4H PRN PAIN LEVEL 1-5 Acetaminophen 650 mg 07/03/18 08:34 Tylenol - PO Q4H PRN PAIN LEVEL 6-10 Aspirin 81 mg 07/02/18 10:00 07/03/18 10:11 Ecotrin - PO 81 mg DAILY GERALD Administration Atorvastatin Calcium 10 mg 07/02/18 22:00 07/02/18 21:15 Lipitor - PO 10 mg HS GERALD Administration Clopidogrel Bisulfate 75 mg 07/02/18 10:00 07/03/18 10:11 Plavix - PO 75 mg DAILY GERALD Administration Enoxaparin Sodium 80 mg 07/02/18 10:00 07/03/18 10:12 Lovenox - SQ 80 mg BID GERALD Administration Gabapentin 300 mg 07/02/18 22:00 07/03/18 06:04 Neurontin - PO 300 mg TID GERALD Administration Famotidine/Sodium Chloride 20 mg in 50 mls @ 100 mls/hr 07/02/18 22:00 10:12 Pepcid 20 Mg Premixed Ivpb - IVPB 100 mls/hr BID GERALD Administration Morphine Sulfate 2 mg 07/02/18 20:33 07/03/18 06:30 Morphine Sulfate IVPUSH 2 mg Q4H PRN Administration PAIN LEVEL 1 - 3 Oxycodone HCl 5 mg 07/03/18 08:44 Roxicodone - PO Q4H PRN PAIN LEVEL 1-5 Oxycodone HCl 10 mg 07/03/18 08:47 Roxicodone - PO Q4H PRN PAIN LEVEL 6-10 Polyethylene Glycol 17 gm 07/03/18 10:00 07/03/18 10:12 Miralax (For Daily Use) - PO 17 gm DAILY GERALD Administration Senna/Docusate Sodium 2 tablet 07/02/18 22:00 07/03/18 10:11 Pericolace - PO 2 tablet BID GERADL Administration Extensive PAD s/p multiple thrombectomies and bypass grafts with recurrent stenosis and occlusions 1. sent FVL, PTgene2, anticardiolipin, beta 2 glycoprotein I,LAC, homocysteine, MTHFR, WILBER,MARK-2 Protein C,S,ATIII held in view of a/c 3. started triple therapeutic AC: plavix, asa, and lovenex per vascular Portal venous gas - followed by GI, surgery, vascular.
--- NOTE | 2018-07-03 15:23 | PN ---
GI Progress Note Subjective: GI NOte; Remains free of abdominal pain , nausea and vomiting. He is constipated but is tolerating a solid diet. WBC has risen slightly but has no fever. - Objective Vital Signs: Vital Signs Temperature 98.4 F 07/03/18 14:39 Pulse Rate 101 H 07/03/18 14:39 Respiratory Rate 20 07/03/18 14:39 Blood Pressure 107/58 L 07/03/18 14:39 O2 Sat by Pulse Oximetry (%) 95 07/03/18 09:00 Laboratory Tests 07/01/18 07/02/18 07/02/18 05:30 05:30 12:14 WBC Lactic Acid 0.7 AST 199 H 165 H ALT 224 H 331 H Alkaline Phosphatase 181 H 281 H 07/03/18 07/03/18 06:30 06:30 WBC 11.4 H Lactic Acid AST 59 H ALT 207 H Alkaline Phosphatase 287 H Constitutional: Calm ...Auscultate: Yes: Normoactive Bowel Sounds ...Palpate: Yes: Soft, Other (nontender) Labs: CBC, BMP 07/03/18 06:30 07/03/18 06:30 INR, PTT INR 1.07 (0.83-1.09) 06/29/18 00:45 Assessment/Plan Resolving ischemic bowel event Will start miralax for constipation. Advised screening colonoscopy when fully recovered. Problem List - Problems (1) Disorder of hepatic portal vein Assessment/Plan: Agree that the portal vein gas reflects an ischemic bowel event which fortunately appears to be self limited and resolving. Dr. Kami woodard be covering this weekend. Please call her as needed. Code(s): I99.9 - UNSPECIFIED DISORDER OF CIRCULATORY SYSTEM (2) Arterial occlusion, lower extremity Code(s): I70.209 - UNSP ATHSCL [place] ARTERIES OF EXTREMITIES, UNSP EXTREMITY (3) Constipation due to pain medication Code(s): K59.03 - DRUG INDUCED CONSTIPATION (4) Elevated LFTs Code(s): R79.89 - OTHER SPECIFIED ABNORMAL FINDINGS OF BLOOD CHEMISTRY
[2018-07-03] MEDS: ATORVASTATIN CA 10 MG TABLET (FP) PO SCH (22:49)
[2018-07-03] MEDS: POLYETHYLENE GLYCOL 3350 119 GM BTL PO SCH (22:59)
[2018-07-04] MEDS: GABAPENTIN 300 MG CAPSULE (FP) PO SCH (06:45)
[2018-07-04] MEDS: POLYETHYLENE GLYCOL 3350 119 GM BTL PO SCH (06:47)
[2018-07-04 07:26] LABS: BASO % 0.6 % (0-2.0); EOS % 2.1 % (0-4.5); HEMOGLOBIN 12.5 GM/dL (11.7-16.9); LYMPH % 23.2 % (8-40); MCH 30.7 pg (25.7-33.7); MCHC 33.7 g/dl (32.0-35.9); MEAN PLT VOLUME 7.2 fl (7.5-11.1); MONO % 8.1 % (3.8-10.2); PLATELET COUNT 406 K/MM3 (134-434); RBC 4.07 M/mm3 (4.00-5.60); RDW 15.5 % (11.9-15.9); WHITE BLOOD COUNT 12.5 K/mm3 (4.0-10.0)
[2018-07-04 07:52] LABS: ALBUMIN 2.7 g/dl (3.4-5.0); ALK PHOS 225 U/L (45-117); AMYLASE 35 U/L (25-115); ANION GAP 8 MMOL/L (8-16); BILIRUBIN,DIRECT 0.1 mg/dL (0.0-0.2); BILIRUBIN,TOTAL 0.4 mg/dL (0.2-1); BLOOD UREA NITROGEN 20 mg/dL (7-18); CALCIUM 9.2 mg/dL (8.5-10.1); CHLORIDE 102 mmol/L (98-107); CO2 29 mmol/L (21-32); GLUCOSE,RANDOM 97 mg/dL (74-106); LDH 139 U/L (87-246); POTASSIUM 4.4 mmol/L (3.5-5.1); SGOT/AST 24 U/L (15-37); SGPT/ALT 131 U/L (13-61); SODIUM 139 mmol/L (136-145); TOT PROT 6.6 g/dl (6.4-8.2)
--- NOTE | 2018-07-04 09:02 | PN ---
Progress Note, Physician Chief Complaint: Right leg arterial occlusion Portal Venous air History of Present Illness: NAD resting Denies any pain Seen by Vascular surgery General surgery Abdominal CT scan showing portal venous gas, recent vascular procedure, long standing extra-anatomical aortic bypass. chronic aortic thoracoabdominal thrombosis. Tolerating PO intake Seen by hematology for recurring thrombosis On triple AC tx-asa,plavix and lovenox - Current Medication List Current Medications: Active Medications Acetaminophen (Tylenol -) 325 mg PO Q4H PRN PRN Reason: PAIN LEVEL 1-5 Acetaminophen (Tylenol -) 650 mg PO Q4H PRN PRN Reason: PAIN LEVEL 6-10 Aspirin (Ecotrin -) 81 mg PO DAILY [facility] Last Admin: 07/03/18 10:11 Dose: 81 mg Atorvastatin Calcium (Lipitor -) 10 mg PO HS [facility] Last Admin: 07/03/18 22:49 Dose: 10 mg Clopidogrel Bisulfate (Plavix -) 75 mg PO DAILY [facility] Last Admin: 07/03/18 10:11 Dose: 75 mg Enoxaparin Sodium (Lovenox -) 80 mg SQ BID [facility] Last Admin: 07/03/18 22:49 Dose: 80 mg Gabapentin (Neurontin -) 300 mg PO TID [facility] Last Admin: 07/04/18 06:45 Dose: 300 mg Morphine Sulfate (Morphine Sulfate) 2 mg IVPUSH Q4H PRN PRN Reason: PAIN LEVEL 1 - 3 Last Admin: 07/03/18 22:49 Dose: 2 mg Oxycodone HCl (Roxicodone -) 5 mg PO Q4H PRN PRN Reason: PAIN LEVEL 1-5 Oxycodone HCl (Roxicodone -) 10 mg PO Q4H PRN PRN Reason: PAIN LEVEL 6-10 Pantoprazole Sodium (Protonix -) 40 mg PO DAILY [facility] Polyethylene Glycol (Miralax (For Daily Use) -) 17 gm PO TID [facility] Last Admin: 07/04/18 06:47 Dose: 17 gm Senna/Docusate Sodium (Pericolace -) 2 tablet PO BID [facility] Last Admin: 07/03/18 22:49 Dose: 2 tablet - Objective Vital Signs: Vital Signs Temperature 97.9 F 07/04/18 07:21 Pulse Rate 88 07/04/18 07:21 Respiratory Rate 20 07/04/18 07:21 Blood Pressure 112/72 07/04/18 07:21 O2 Sat by Pulse Oximetry (%) 95 07/03/18 21:00 Constitutional: Yes: Well Nourished, No Distress, Calm Cardiovascular: Yes: Regular Rate and Rhythm Respiratory: Yes: Regular Gastrointestinal: Yes: Normal Bowel Sounds, Soft Musculoskeletal: Yes: WNL Extremities: Yes: WNL Edema: No Peripheral Pulses WNL: Yes Neurological: Yes: Alert, Oriented Psychiatric: Yes: Alert, Oriented Labs: CBC, BMP 07/04/18 06:30 07/04/18 06:30 INR, PTT INR 1.07 (0.83-1.09) 06/29/18 00:45 Problem List - Problems (1) Arterial occlusion, lower extremity Assessment/Plan: -Axillo bifemoral bypass, thrombectomy right leg bypass graft Code(s): I70.209 - UNSP ATHSCL [place] ARTERIES OF EXTREMITIES, UNSP EXTREMITY (2) Thrombosis of aortic bifurcation bypass graft Code(s): T82.868A - THROMBOSIS DUE TO VASCULAR PROSTH DEV/GRFT, INIT Qualifiers: Encounter type: subsequent encounter Qualified Code(s): T82.868D - Thrombosis due to vascular prosthetic devices, implants and grafts, subsequent encounter (3) Thrombosis of femoro-popliteal bypass graft Code(s): T82.868A - THROMBOSIS DUE TO VASCULAR PROSTH DEV/GRFT, INIT Qualifiers: Encounter type: initial encounter Qualified Code(s): T82.868A - Thrombosis due to vascular prosthetic devices, implants and grafts, initial encounter (4) Portal system vein injury Assessment/Plan: Portal venous air -Seen by Vascular surgery, general surgery and GI -self resolving -afebrile -mild elevation in leuks -monitor for now Code(s): S35.319A - UNSPECIFIED INJURY OF PORTAL VEIN, INITIAL ENCOUNTER (5) Constipation Assessment/Plan: -2/2 to opioids -Already on Miralax 17 gm tid+ Senna 2 tabs BID -Start Relistor -may benefit from [facility] outpatient for OIC Code(s): K59.00 - CONSTIPATION, UNSPECIFIED Assessment/Plan See problem list Did well with Physical therapy
[2018-07-04] MEDS: ENOXAPARIN NA (PORCINE) 80 MG/0.8 ML DISP.SYRIN SQ SCH (09:56)
[2018-07-04] MEDS: ASPIRIN COATED 81 MG TABLET.EC PO SCH (09:56)
[2018-07-04] MEDS: CLOPIDOGREL BISULFATE 75 MG TABLET (FP) PO SCH (09:57)
[2018-07-04] MEDS: SENNOSIDES/DOCUSATE COMBO (SENNA PLUS) TABLET (UD) PO SCH (09:57)
[2018-07-04] MEDS ORDERED: PANTOPRAZOLE 40 MG TABLET (FP) PO SCH (10:00)
[2018-07-04] MEDS ORDERED: Methylnaltrexone Bromide 12 MG/0.6 ML KIT SQ SCH (10:00)
--- NOTE | 2018-07-04 10:25 | PN ---
Progress Note (short form) - Note Progress Note: NAD Afebrile Incisions clean and dry Bilateral DP and PT with doppler WBC 12 K Imp: Stable course. No fever or abdominal pain, mild leukocytosis. Discharge on Lovenox, ASA and Plavix Close follow-up Problem List - Problems (1) Arterial occlusion, lower extremity Code(s): I70.209 - UNSP ATHSCL [place] ARTERIES OF EXTREMITIES, UNSP EXTREMITY
--- NOTE | 2018-07-04 10:36 | DS ---
Physical Examination Vital Signs: Vital Signs Temperature 97.9 F 07/04/18 07:21 Pulse Rate 88 07/04/18 07:21 Respiratory Rate 20 07/04/18 07:21 Blood Pressure 112/72 07/04/18 07:21 O2 Sat by Pulse Oximetry (%) 95 07/03/18 21:00 Findings/Remarks: 57yo man ex smoker with pvd, multiple vascular surgeries on lower ext, recent surgery- Open thrombectomy and angioplasty of MEATMAN performed with yazidism of flow, with Dr. Stoner, returns to hospital with right leg pain since 5pm 06/28. Pain started suddenly and is worse with walking. He was previously d/ c with lovenox sc. Dr. Stoner was called from ER and is aware. Constitutional: Yes: Well Nourished, No Distress, Calm Cardiovascular: Yes: Regular Rate and Rhythm Respiratory: Yes: Regular Gastrointestinal: Yes: Normal Bowel Sounds, Soft Musculoskeletal: Yes: WNL Extremities: Yes: WNL Edema: No Peripheral Pulses WNL: Yes Wound/Incision: Yes: Dressing Dry and Intact Neurological: Yes: Alert, Oriented Psychiatric: Yes: Alert, Oriented Labs: CBC, BMP 07/04/18 06:30 07/04/18 06:30 Discharge Summary Reason For Visit: OCCLUSION OF ARTERY OF LOWER EXTREMITY Current Active Problems Abnormal CT scan (Acute) Arterial occlusion, lower extremity (Acute) Constipation (Acute) Disorder of hepatic portal vein (Acute) Iliac artery occlusion, bilateral (Acute) Portal system vein injury (Acute) Hospital Course: Laboratory Last Values WBC 12.5 K/mm3 (4.0-10.0) H 07/04/18 06:30 RBC 4.07 M/mm3 (4.00-5.60) 07/04/18 06:30 Hgb 12.5 GM/dL (11.7-16.9) 07/04/18 06:30 Hct 37.0 % (35.4-49) 07/04/18 06:30 MCV 91.0 fl (80-96) 07/04/18 06:30 MCH 30.7 pg (25.7-33.7) 07/04/18 06:30 MCHC 33.7 g/dl (32.0-35.9) 07/04/18 06:30 RDW 15.5 % (11.9-15.9) 07/04/18 06:30 Plt Count 406 K/MM3 (134-434) D 07/04/18 06:30 MPV 7.2 fl (7.5-11.1) L 07/04/18 06:30 Absolute Neuts (auto) 8.2 K/mm3 (1.5-8.0) H 07/04/18 06:30 Neutrophils % 66.0 % (42.8-82.8) 07/04/18 06:30 Lymphocytes % 23.2 % (8-40) D 07/04/18 06:30 Monocytes % 8.1 % (3.8-10.2) 07/04/18 06:30 Eosinophils % 2.1 % (0-4.5) D 07/04/18 06:30 Basophils % 0.6 % (0-2.0) 07/04/18 06:30 Nucleated RBC % 0 % (0-0) 07/04/18 06:30 ESR 54 mm/hr (0-20) H 06/29/18 00:45 PT with INR 12.60 SEC (9.7-13.0) 06/29/18 00:45 INR 1.07 (0.83-1.09) 06/29/18 00:45 PTT (Actin FS) 36.0 SECONDS (25.2-36.5) 07/03/18 06:30 Sodium 139 mmol/L (136-145) 07/04/18 06:30 Potassium 4.4 mmol/L (3.5-5.1) 07/04/18 06:30 Chloride 102 mmol/L (98-107) 07/04/18 06:30 Carbon Dioxide 29 mmol/L (21-32) 07/04/18 06:30 Anion Gap 8 MMOL/L (8-16) 07/04/18 06:30 BUN 20 mg/dL (7-18) H 07/04/18 06:30 Creatinine 1.0 mg/dL (0.55-1.3) 07/04/18 06:30 Creat Clearance w eGFR > 60 (>60) 07/04/18 06:30 Random Glucose 97 mg/dL (74-106) 07/04/18 06:30 Lactic Acid 1.3 mmol/L (0.4-2.0) 07/04/18 06:00 Calcium 9.2 mg/dL (8.5-10.1) 07/04/18 06:30 Phosphorus 3.0 mg/dL (2.5-4.9) 07/03/18 06:30 Magnesium 2.1 mg/dL (1.8-2.4) 07/03/18 06:30 Ferritin 79.0 ng/ml (8-388) 07/04/18 06:30 Total Bilirubin 0.4 mg/dL (0.2-1) 07/04/18 06:30 Direct Bilirubin 0.1 mg/dL (0.0-0.2) 07/04/18 06:30 AST 24 U/L (15-37) 07/04/18 06:30 ALT 131 U/L (13-61) H 07/04/18 06:30 Alkaline Phosphatase 225 U/L (45-117) H 07/04/18 06:30 LD Total 139 U/L (87-246) 07/04/18 06:30 C-Reactive Protein 6.4 MG/DL (0.00-0.3) H 07/04/18 06:30 Total Protein 6.6 g/dl (6.4-8.2) 07/04/18 06:30 Albumin 2.7 g/dl (3.4-5.0) L 07/04/18 06:30 Total Amylase 35 U/L (25-115) 07/04/18 06:30 Bitt-7-Beoapkrvbxos <9 (0-20) 07/02/18 14:18 Fqwb-8-Bcesrncsfhug Ab <9 (0-25) 07/02/18 14:18 Beta-2-GPI IgM Ab <9 (0-32) 07/02/18 14:18 Anti-Cardiolipin IgG Ab <9 GPL U/mL (0-14) 07/02/18 05:30 Anti-Cardiolipin IgA Ab <9 APL U/mL (0-11) 07/02/18 05:30 Anti-Cardiolipin IgM Ab 11 MPL U/mL (0-12) 07/02/18 05:30 Blood Type A POSITIVE 06/29/18 09:43 Antibody Screen Negative 06/29/18 09:43 Condition: Stable - Instructions Diet, Activity, Other Instructions: Dr. Stoner Discharge Instructions Dear ABIGAIL PERLA, Post Operative Instructions Physical activity Resume your normal everyday activity as tolerated no heavy lifting or exercise until seen by your surgeon. You may walk unlimited amounts of and climb stairs. You may resume driving the car when you feel safe and comfortable behind the wheel and no longer taking narcotic medication. Wound care Keep all incisions clean and DRY until. Do not apply lotions or ointments. Cover with clean dry dressing at all times. The levy will be removed in your surgeon's office. Diet There are no dietary restrictions. Eat healthy, high-fiber foods. Drink 6 to 8 glasses of liquid each day. This will assist in keeping your bowels are regular. Pain management You may take Tylenol or acetaminophen .Any pain prescription medication ordered should be taken as prescribed for moderate to severe pain. Medications: Do Not Make Changes to the following medication without Dr Stoner. Lovenox 80mg SQ BID Plavix 75mg daily Aspirin 81mg daily Call Dr. Stoner for any of the following: Severe pain not relieved by medication Fever of 101 or higher Excessive bleeding or drainage on dressing Inability to urinate If you experience any chest pain or shortness of breath please seek emergency treatment immediately. Call Dr Stoner's office to confirm for a post operative appointment. Referrals: Lazaro Anand MD [Staff Physician] - Carlos Stoner MD [Staff Physician] - Gray Aguilar MD [Staff Physician] - Disposition: HOME - Home Medications Comprehensive Discharge Medication List: Ambulatory Orders Aspirin [ASA -] 81 mg PO DAILY #30 tab.chew 12/02/17 Enoxaparin Sodium [Lovenox] 80 mg SQ BID #60 syringe 12/02/17 Gabapentin [Neurontin] 300 mg PO TID 03/12/18 Simvastatin 20 mg PO HS 03/12/18 Aspirin Coated [Ecotrin -] 81 mg PO DAILY #30 tablet.ec 07/02/18 Clopidogrel Bisulfate [Plavix] 75 mg PO DAILY #30 tablet 07/02/18 Enoxaparin Sodium [Lovenox] 80 mg SQ BID #30 syringe 07/02/18
[2018-07-04 11:37] VITALS: BP 106/68; PULSE 86; TEMP 98.9
[2018-07-04 13:11] LABS: PROTEIN C ACTIVITY 145 % (73-180)
[2018-07-04 15:15] LABS: DRVVT - 42.2 sec (0.0-47.0)
[2018-07-04 18:11] LABS: HOMOCYSTINE-PLASMA OR SERUM 12.4 umol/L (0.0-15.0)
[2018-07-06 00:07] LABS: HBSAG SCREEN Negative (Negative); HEP B CORE AB, TOT Negative (Negative); SERUM IRON SATURATION 13 % (15-55); TOTAL IRON BINDING CAPACITY 333 ug/dL (250-450); UIBC 289 ug/dL (111-343)
[2018-07-06 17:15] LABS: TRANSGLUTAMINASE IGA < 2 U/mL (0-3); TRANSGLUTAMINASE IGG < 2 U/mL (0-5)
--- NOTE | 2018-07-07 09:40 | PATH ---
Surgical Pathology Report Patient Name: ABIGAIL PERLA Med. Rec. #: [id number] /Age/Gender: 1960 (Age: 57) / M Account: [id number] Location: [facility]URG Taken: 07/03/2018 Received: 07/03/2018 Reported: 07/07/2018 Physicians: Dariana Cyr M.D. Specimen(s) Received PERIPHERAL BLOOD IN 2 LAVENDER TOP TUBES Clinical History Thrombophilia Final Diagnosis COMPREHENSIVE FLOW PANEL performed and interpreted at [facility] laboratory, [place], [place] ([id number]) shows the following: INTERPRETATION: NO ATYPICAL FLOW CYTOMETRIC FINDINGS SEEN. See [facility] report ([id number]) for additional details. Electronically Signed Francisca Brown M.D. Addendum Reported: 07/09/2018 Addendum Diagnosis JAK2 ([id number]) MUTATION ANALYSIS BY PCR performed and [facility] [place] ([id number]) shows the following: JAK2 (V617F) MUTATION STATUS: NOT DETECTED. INTERPRETATION: Negative for JAK2 (V617F) Mutation. See [facility] report ([id number]) for additional details. Francisca Brown M.D. Gross Description Received are 2 lavender top tubes of peripheral blood which are sent to [employer]. DL/07/03/2018 saudi07/03/2018
== END 2018-07-04 11:57 | disposition home or self-care (01) | DRG 254 ==
LOC: JER 23:29 → JERBED 06-29 02:18 → JICU 06-30 00:12 → J8W 07-02 20:28
PROVIDERS: ADMIT Internal Medicine; ATTEND Family Medicine
PROC: B40DYZZ Plain Radiography of Aorta and Bilateral Lower Extremity Arteries using Other Contrast (ICD-10-PCS; 2018-06-29)
PROC: 3E05017 Introduction of Other Thrombolytic into Peripheral Artery, Open Approach (ICD-10-PCS; 2018-06-29)
PROC: 04CK0Z6 (ICD-10-PCS; principal; 2018-06-29 17:00)
PROC: 041 Lower Arteries, Bypass (ICD-10-PCS; 2018-06-29 17:00)
DX: I70.291 Other atherosclerosis of native arteries of extremities, right leg (principal); K59.00 Constipation, unspecified; J44.9 Chronic obstructive pulmonary disease, unspecified; E78.5 Hyperlipidemia, unspecified; R74.0 Nonspecific elevation of levels of transaminase and lactic acid dehydrogenase [LDH]; D72.829 Elevated white blood cell count, unspecified; R79.89 Other specified abnormal findings of blood chemistry
CPT/HCPCS: 36415; 71045-TC-FY; 71275-TC; 74176-TC; 75635-TC; 80048; 80053; 80076; 81240; 81241; 81291; 82150; 82728; 83090; 83516; 83540; 83550; 83605; 83615; 83735; 84100; 85025; 85027; 85303; 85306; 85610; 85613; 85651; 85730; 85732; 86038; 86140; 86146; 86704; 86706; 86708; 86803; 86850; 86900; 86901; 87340; 88300-TC; 93005; 93010; 93926-TC; 94760; 97116-GP; 99284-25; J1644; J7030

== ENCOUNTER 2018-10-01 15:28 | Inpatient (IN) | payer BC ==
[2018-10-01 15:55] VITALS: BMI 23.6
--- NOTE | 2018-10-01 15:58 | PDOC ---
History of Present Illness - General Chief Complaint: Pain, Acute Stated Complaint: SENT BY PCP Time Seen by Provider: 10/01/18 15:58 Past History - Past Medical History Allergies/Adverse Reactions: Allergies Allergy/AdvReac Type Severity Reaction Status Date / Time Penicillins Allergy Verified 06/28/18 23:37 Home Medications: Ambulatory Orders Aspirin [ASA -] 81 mg PO DAILY #30 tab.chew 12/02/17 Enoxaparin Sodium [Lovenox] 80 mg SQ BID #60 syringe 12/02/17 Gabapentin [Neurontin] 300 mg PO TID 03/12/18 Simvastatin 20 mg PO HS 03/12/18 Aspirin Coated [Ecotrin -] 81 mg PO DAILY #30 tablet.ec 07/02/18 Clopidogrel Bisulfate [Plavix] 75 mg PO DAILY #30 tablet 07/02/18 Enoxaparin Sodium [Lovenox] 80 mg SQ BID #30 syringe 07/02/18 Acetaminophen 1 - 2 mg PO Q6H PRN 30 Days #240 tablet 07/04/18 Clopidogrel Bisulfate [Plavix -] 75 mg PO DAILY #30 tablet 07/04/18 Enoxaparin [Lovenox -] 80 mg SQ BID #60 disp.syrin 07/04/18 Gabapentin [Neurontin -] 300 mg PO TID #90 capsule 07/04/18 Pantoprazole Sodium [Protonix -] 40 mg PO DAILY #30 tablet.ec 07/04/18 Polyethylene Glycol 3350 [Miralax 119 gm Btl -] 17 gm PO TID bottle 07/04/18 Sennosides/Docusate Sodium [Pericolace -] 2 tablet PO BID #120 tablet 07/04/18 oxyCODONE HCL [Roxicodone -] 10 mg PO Q4H PRN #30 tablet MDD 6 07/04/18 Anemia: No Asthma: No Cancer: No Cardiac Disorders: No CVA: No COPD: No CHF: No DVT: Yes Dementia: No Diabetes: No GI Disorders: No Disorders: No HTN: Yes Hypercholesterolemia: Yes Kidney Stones: Yes Liver Disease: No Seizures: No Thyroid Disease: No - Surgical History Abdominal Surgery: No Appendectomy: No Cardiac Surgery: No Cholecystectomy: No Lung Surgery: No Neurologic Surgery: No Orthopedic Surgery: No - Suicide/Smoking/Psychosocial Hx Smoking Status: Yes Smoking History: Never smoked Have you smoked in the past 12 months: No Number of Cigarettes Smoked Daily: 0 If you are a former smoker, when did you quit?: more than one year ago Cigars Per Day: 5 Information on smoking cessation initiated: No 'Breaking Loose' booklet given: 03/13/18 Hx Alcohol Use: No Drug/Substance Use Hx: No Substance Use Type: None Hx Substance Use Treatment: No *Physical Exam - Vital Signs Last Vital Signs Temp Pulse Resp BP Pulse Ox 98.4 F 82 16 120/73 97 10/01/18 15:49 10/01/18 15:49 10/01/18 15:49 10/01/18 15:49 10/01/18 15:49 *DC/Admit/Observation/Transfer - Discharge Dispostion Condition at time of disposition: Stable - Referrals - Patient Instructions - Post Discharge Activity
[2018-10-01] MEDS ORDERED: HEPARIN INFUSION - 25,000 UNITS/500 ML INFUS.BAG IVPB ONE (16:16)
[2018-10-01] MEDS: HEPARIN - 25,000 UNIT in SODIUM CHLORIDE 495 ML IV SCH (16:26)
[2018-10-01 16:35] LABS: BASO % 0.9 % (0-2.0); EOS % 1.7 % (0-4.5); HEMATOCRIT 40.1 % (35.4-49); HEMOGLOBIN 13.2 GM/dL (11.7-16.9); LYMPH % 22.5 % (8-40); MEAN PLT VOLUME 7.1 fl (7.5-11.1); MONO % 7.1 % (3.8-10.2); NEUT % 67.8 % (42.8-82.8); PLATELET COUNT 483 K/MM3 (134-434); RBC 4.56 M/mm3 (4.00-5.60); WHITE BLOOD COUNT 11.5 K/mm3 (4.0-10.0)
--- NOTE | 2018-10-01 16:39 | PDOC ---
Documentation entered by Gaye Farooq SCRIBE, acting as scribe for Liat Nguyen DO. Liat Nguyen DO: This documentation has been prepared by the Oseas chiu Amanda, SCRIBE, under my direction and personally reviewed by me in its entirety. I confirm that the documentation accurately reflects all work, treatment, procedures, and medical decision making performed by me. History of Present Illness - General Chief Complaint: Pain, Acute Stated Complaint: SENT BY PCP Time Seen by Provider: 10/01/18 15:58 History Source: Patient Exam Limitations: No Limitations - History of Present Illness Initial Comments: 10/01/18 16:14 The patient is a 58 year old male, with a significant past medical history of PVD s/p multiple vascular surgeries on lower extremities with Dr. Stoner, who presents to the ED with right lower extremity pain and right foot discoloration and decreased temperature. The patient reports his right foot became cold around 1PM and Dr. Stoner advised him to come to the ED for angioplasty and thrombectomy of the right femoral artery. The patient denies any CP, SOB, dizziness, palpitations. He denies all other complaints. Past History - Past Medical History Allergies/Adverse Reactions: Allergies Allergy/AdvReac Type Severity Reaction Status Date / Time Penicillins Allergy Verified 10/01/18 16:33 Home Medications: Ambulatory Orders Aspirin [ASA -] 81 mg PO DAILY #30 tab.chew 12/02/17 Enoxaparin Sodium [Lovenox] 80 mg SQ BID #60 syringe 12/02/17 Gabapentin [Neurontin] 300 mg PO TID 03/12/18 Simvastatin 20 mg PO HS 03/12/18 Aspirin Coated [Ecotrin -] 81 mg PO DAILY #30 tablet.ec 07/02/18 Clopidogrel Bisulfate [Plavix] 75 mg PO DAILY #30 tablet 07/02/18 Enoxaparin Sodium [Lovenox] 80 mg SQ BID #30 syringe 07/02/18 Acetaminophen 1 - 2 mg PO Q6H PRN 30 Days #240 tablet 07/04/18 Clopidogrel Bisulfate [Plavix -] 75 mg PO DAILY #30 tablet 07/04/18 Enoxaparin [Lovenox -] 80 mg SQ BID #60 disp.syrin 07/04/18 Gabapentin [Neurontin -] 300 mg PO TID #90 capsule 07/04/18 Pantoprazole Sodium [Protonix -] 40 mg PO DAILY #30 tablet.ec 07/04/18 Polyethylene Glycol 3350 [Miralax 119 gm Btl -] 17 gm PO TID bottle 07/04/18 Sennosides/Docusate Sodium [Pericolace -] 2 tablet PO BID #120 tablet 07/04/18 oxyCODONE HCL [Roxicodone -] 10 mg PO Q4H PRN #30 tablet MDD 6 07/04/18 Anemia: No Asthma: No Cancer: No Cardiac Disorders: No CVA: No COPD: No CHF: No DVT: Yes Dementia: No Diabetes: No GI Disorders: No Disorders: No HTN: Yes Hypercholesterolemia: Yes Kidney Stones: Yes Liver Disease: No Seizures: No Thyroid Disease: No - Surgical History Abdominal Surgery: No Appendectomy: No Cardiac Surgery: No Cholecystectomy: No Lung Surgery: No Neurologic Surgery: No Orthopedic Surgery: No - Suicide/Smoking/Psychosocial Hx Smoking Status: Yes Smoking History: Never smoked Have you smoked in the past 12 months: No Number of Cigarettes Smoked Daily: 0 If you are a former smoker, when did you quit?: more than one year ago Cigars Per Day: 5 Information on smoking cessation initiated: No 'Breaking Loose' booklet given: 03/13/18 Hx Alcohol Use: No Drug/Substance Use Hx: No Substance Use Type: None Hx Substance Use Treatment: No Review of Systems - Review of Systems Able to Perform ROS?: Yes Comments:: 10/01/18 16:19 GENERAL/CONSTITUTIONAL: No fever or chills. No weakness. HEAD, EYES, EARS, NOSE AND THROAT: No change in vision. No ear pain or discharge. No sore throat. GASTROINTESTINAL: No nausea, vomiting, diarrhea or constipation. GENITOURINARY: No dysuria, frequency, or change in urination. CARDIOVASCULAR: No chest pain or shortness of breath. RESPIRATORY: No cough, wheezing, or hemoptysis. MUSCULOSKELETAL: (+) RLE pain. Right foot decreased temperature and discoloration. No joint or muscle swelling or pain. No neck or back pain. SKIN: No rash NEUROLOGIC: No headache, vertigo, loss of consciousness, or change in strength/ sensation. ENDOCRINE: No increased thirst. No abnormal weight change. HEMATOLOGIC/LYMPHATIC: No anemia, easy bleeding, or history of blood clots. ALLERGIC/IMMUNOLOGIC: No hives or skin allergy. *Physical Exam - Vital Signs Last Vital Signs Temp Pulse Resp BP Pulse Ox 98.4 F 82 16 120/73 97 10/01/18 15:49 10/01/18 15:49 10/01/18 15:49 10/01/18 15:49 10/01/18 15:49 - Physical Exam Comments: 10/01/18 16:20 Constitutional: Awake, alert, oriented. No acute distress. Head: Normocephalic. Atraumatic Eyes: PERRL. EOMI. Conjunctivae are not pale. ENT: Mucous membranes are moist and intact. Posterior pharynx without exudates or erythema. Uvula midline. Neck: Supple. Full ROM. No lymphadenopathy. Cardiovascular: Regular rate. Regular rhythm. S1, S2 regular. Distal pulses are 2+ and symmetric. Pulmonary/Chest: No evidence of respiratory distress. Clear to auscultation bilaterally No wheezing, rales or rhonchi. Abdominal: Soft and non-distended. There is no tenderness. No rebound, guarding or rigidity. No organomegaly. No palpable masses. Good bowel sounds. Back: No CVA tenderness. Musculoskeletal: (+) Right foot is cold to touch, mottled skin, delayed capillary refill (4seconds), no palpable pulse. No edema. No cyanosis. No clubbing. Full range of motion in all extremities. Nocalf tenderness. L foot is warm. Skin: (+) mottled skin to right foot. Skin is warm and dry. No petechiae. No purpura. Neurological: Alert and oriented to person, place, and time. Cranial nerves II -XII are grossly intact. Normal speech. Strength is grossly symmetric. No sensory deficits. Psychiatric: Good eye contact. Normal interaction, affect and behavior. ED Treatment Course - LABORATORY CBC & Chemistry Diagram: 10/01/18 16:15 10/01/18 16:15 - RADIOLOGY Radiology Studies Ordered: Category Date Time Status CHEST X-RAY PORTABLE* [RAD] Stat Radiology 10/01/18 15:58 Taken Medical Decision Making - Medical Decision Making 10/01/18 16:26 a/p: 58yo male sent by Dr. Stoner for a cold R leg -pt with a purple discoloration of the R foot, cold foot, delayed cap refill, nonpalpable pulses -occurred at 1p today -had an ultrasound by Dr. Stoner as outpt that shows acute occlusion of his graft -hx of PAD s/p grafting -had angioplasty of L leg last week -warm L leg -NPO, plan for OR today for angiogram and poss embolectomy -heparin gtt -labs, ekg, cxr -pt last po intake was 1p today 10/01/18 16:[address] katia miranda - call placed to Dr Norris for admission 10/01/18 16:33 cxr clear case discussed with Dr. Norris who accepts pt to service, will admit under Dr. Cyr 10/01/18 16:48 h/h stable plts stable wbc 11.7 *DC/Admit/Observation/Transfer Diagnosis at time of Disposition: Arterial occlusion, lower extremity - Discharge Dispostion Condition at time of disposition: Guarded Decision to Admit order: Yes - Referrals - Patient Instructions - Post Discharge Activity - Attestations Physician Attestion: 10/01/18 16:25 I, Dr. Liat Nguyen, DO, attest that this document has been prepared under my direction and personally reviewed by me in its entirety. I further attest, that it accurately reflects all work, treatment, procedures and medical decision -making performed by me.
--- NOTE | 2018-10-01 16:46 | HP ---
Admitting History and Physical - Admission Chief Complaint: sent in from [facility] office forirght foot pain History of Present Illness: The patient is a 58 year old male, with a significant past medical history of PVD s/p multiple vascular surgeries on lower extremities with Dr. Stoner, who presents to the ED with right lower extremity pain and right foot discoloration and decreased temperature. The patient reports his right foot became cold around 1PM and Dr. Stoner advised him to come to the ED for angioplasty and thrombectomy of the right femoral artery. earlier today theo was sitting on the couch when suddenly his right foot became white numb and cold then discolored patient went to Dr simms office who told him to come to ER in ER NPO for OR today iv heparin History Source: Patient, Medical Record - Past Medical History Cardiovascular: Yes: HTN, Hyperlipdemia, Other (peripheral arterial disease) Renal/: Yes: Renal Calculi - Past Surgical History Past Surgical History: Yes: Bypass - Smoking History Smoking history: Never smoked Have you smoked in the past 12 months: No Aproximately how many cigarettes per day: 0 If you are a former smoker, when did you quit?: more than one year ago - Alcohol/Substance Use Hx Alcohol Use: No History of Substance Use: reports: None - Social History ADL: Independent History of Recent Travel: No Home Medications - Allergies Allergies/Adverse Reactions: Allergies Allergy/AdvReac Type Severity Reaction Status Date / Time Penicillins Allergy Verified 10/01/18 16:33 - Home Medications Home Medications: Ambulatory Orders Aspirin [ASA -] 81 mg PO DAILY #30 tab.chew 12/02/17 Enoxaparin Sodium [Lovenox] 80 mg SQ BID #60 syringe 12/02/17 Gabapentin [Neurontin] 300 mg PO TID 03/12/18 Simvastatin 20 mg PO HS 03/12/18 Aspirin Coated [Ecotrin -] 81 mg PO DAILY #30 tablet.ec 07/02/18 Clopidogrel Bisulfate [Plavix] 75 mg PO DAILY #30 tablet 07/02/18 Enoxaparin Sodium [Lovenox] 80 mg SQ BID #30 syringe 07/02/18 Acetaminophen 1 - 2 mg PO Q6H PRN 30 Days #240 tablet 07/04/18 Clopidogrel Bisulfate [Plavix -] 75 mg PO DAILY #30 tablet 07/04/18 Enoxaparin [Lovenox -] 80 mg SQ BID #60 disp.syrin 07/04/18 Gabapentin [Neurontin -] 300 mg PO TID #90 capsule 07/04/18 Pantoprazole Sodium [Protonix -] 40 mg PO DAILY #30 tablet.ec 07/04/18 Polyethylene Glycol 3350 [Miralax 119 gm Btl -] 17 gm PO TID bottle 07/04/18 Sennosides/Docusate Sodium [Pericolace -] 2 tablet PO BID #120 tablet 07/04/18 oxyCODONE HCL [Roxicodone -] 10 mg PO Q4H PRN #30 tablet MDD 6 07/04/18 Physical Examination Vital Signs: Vital Signs Temperature 98.4 F 10/01/18 15:49 Pulse Rate 82 10/01/18 15:49 Respiratory Rate 16 10/01/18 15:49 Blood Pressure 120/73 10/01/18 15:49 O2 Sat by Pulse Oximetry (%) 97 10/01/18 15:49 Imaging - Results Chest X-ray: Image Reviewed Problem List - Problems (1) Cold right foot Assessment/Plan: NPO iv heparin angiogram later today vascular dr simms aware labs pending no fever trend wbc pain control aspirin plavix on hold for now Code(s): R20.9 - UNSPECIFIED DISTURBANCES OF SKIN SENSATION (2) HLD (hyperlipidemia) Assessment/Plan: lipitor monitor lft lipid panel Code(s): E78.5 - HYPERLIPIDEMIA, UNSPECIFIED Qualifiers: Hyperlipidemia type: pure hypercholesterolemia Qualified Code(s): E78.00 - Pure hypercholesterolemia, unspecified; E78.0 - Pure hypercholesterolemia (3) Neuropathic pain of foot Assessment/Plan: neurotin tid Code(s): G57.90 - UNSPECIFIED MONONEUROPATHY OF UNSPECIFIED LOWER LIMB
[2018-10-01 16:52] LABS: ALBUMIN 3.5 g/dl (3.4-5.0); ALK PHOS 88 U/L (45-117); ANION GAP 5 MMOL/L (8-16); BILIRUBIN,TOTAL 0.3 mg/dL (0.2-1); BLOOD UREA NITROGEN 22 mg/dL (7-18); CALCIUM 9.3 mg/dL (8.5-10.1); CHLORIDE 103 mmol/L (98-107); CO2 27 mmol/L (21-32); GLUCOSE,RANDOM 97 mg/dL (74-106); POTASSIUM 4.5 mmol/L (3.5-5.1); SGOT/AST 13 U/L (15-37); SGPT/ALT 20 U/L (13-61); SODIUM 135 mmol/L (136-145); TOT PROT 7.6 g/dl (6.4-8.2)
[2018-10-01 17:06] LABS: INR 1.02 (0.83-1.09)
[2018-10-01 17:08] LABS: ACTIVATED PTT 36.6 SECONDS (25.2-36.5)
[2018-10-01] MEDS ORDERED: ACETAMINOPHEN 1000 MG/100 ML VIAL (NON FORMULARY) IVPB ONE (17:15)
--- NOTE | 2018-10-01 17:32 | CONSULT ---
<Victor M Oconnor P - Last Filed: 10/01/18 17:42> - Consultation REQUESTING PROVIDER: Carlos Stoner - Vascular Surgery CONSULT REQUEST: We have been asked to surgically evaluate this patient for right foot pain, cold RLE PCP: Myrna Dey HPI: Called to evaluate 58yo male w/ PMHx as noted below. Patient is very well know to the Vascular Surgery Service as we have operated on him multiple times. Presents to the ED with RLE pain and right foot discoloration and decreased temperature. Patient states around 1PM foot became cold and painful. Patient went to Dr. Stoners office due to above complaint. Dr. Stoner advised patient to come straight to [facility] ED for evaluation. Of note, patient last seen by Dr. Stoner this past week where he performed an angiogram/balloon angioplasty of the LLE. He is compliant with his home meds which includes: ASA, Plavix and Lovenox. Patient denies n/v/f/c, CP, palpitations, SOB or FRANCIS. Smoking Hx: Former smoker, quit > 1 year ago PMHx: HTN, Hyperlipdemia, PAD, Renal Calculi PSHx Aortobifem bypass 2011 R fem-tib bypass 10/2017 Multiple thrombectomies R ilio-tib bypass w/ non-reverse SVG 03/2018 R ax-fem, fem-fem bypass 07/04 Home Meds Aspirin [ASA -] 81 mg PO DAILY #30 tab.chew 12/02/17 Enoxaparin Sodium [Lovenox] 80 mg SQ BID #60 syringe 12/02/17 Gabapentin [Neurontin] 300 mg PO TID 03/12/18 Simvastatin 20 mg PO HS 03/12/18 Aspirin Coated [Ecotrin -] 81 mg PO DAILY #30 tablet.ec 07/02/18 Clopidogrel Bisulfate [Plavix] 75 mg PO DAILY #30 tablet 07/02/18 Enoxaparin Sodium [Lovenox] 80 mg SQ BID #30 syringe 07/02/18 Acetaminophen 1 - 2 mg PO Q6H PRN 30 Days #240 tablet 07/04/18 Clopidogrel Bisulfate [Plavix -] 75 mg PO DAILY #30 tablet 07/04/18 Enoxaparin [Lovenox -] 80 mg SQ BID #60 disp.syrin 07/04/18 Gabapentin [Neurontin -] 300 mg PO TID #90 capsule 07/04/18 Pantoprazole Sodium [Protonix -] 40 mg PO DAILY #30 tablet.ec 07/04/18 Polyethylene Glycol 3350 [Miralax 119 gm Btl -] 17 gm PO TID bottle 07/04/18 Sennosides/Docusate Sodium [Pericolace -] 2 tablet PO BID #120 tablet 07/04/18 oxyCODONE HCL [Roxicodone -] 10 mg PO Q4H PRN #30 tablet MDD 6 07/04/18 Allergies: PCNs ROS CONSTITUTIONAL: Absent: fever, chills, diaphoresis, generalized weakness, malaise, loss of appetite, weight change CARDIOVASCULAR: Absent: chest pain, syncope, palpitations, irregular heart rate , lightheadedness, peripheral edema RESPIRATORY: Absent: cough, shortness of breath, dyspnea with exertion, wheezing , stridor, hemoptysis GASTROINTESTINAL:Absent: abdominal pain, abdominal distension, nausea, vomiting , diarrhea, constipation, melena, hematochezia GENITOURINARY: Absent: dysuria, frequency, urgency, hesitancy, hematuria, flank pain, genital pain MUSCULOSKELETAL: Absent: myalgia, arthralgia, joint swelling, back pain, neck pain SKIN: Absent: rash, itching, pallor HEMATOLOGIC/IMMUNOLOGIC: Absent: easy bleeding, easy bruising, lymphadenopathy NEUROLOGIC: Absent: headache, focal weakness, paresthesias, dizziness, unsteady gait, seizure, mental status changes, bladder or bowel incontinence PSYCHIATRIC: Absent: anxiety, depression, suicidal or homicidal ideation, hallucinations. PE GENERAL: A&O HEAD: NC. AT. EYES: PERRL, sclera anicteric, conjunctiva clear. NECK: Normal ROM, supple without lymphadenopathy, JVD, or masses. LUNGS: CTA bilat HEART: RRR ABDOMEN: Soft, NT, ND, no palpable masses. MUSCULOSKELETAL: Normal ROM at all joints. No bony deformities or tenderness. No CVA tenderness. UE: 2+ pulses, warm, well-perfused. No cyanosis. Cap refill <2 seconds. No peripheral edema. LE: Right foot DP not palpable. Cold to touch. Decreased sensation. Dusky discoloration of toes. No peripheral edema. PSYCH: Cooperative. Good eye contact. Appropriate mood and affect. Last Vital Signs Temp Pulse Resp BP Pulse Ox 98.4 F 82 16 120/73 97 10/01/18 15:49 10/01/18 15:49 10/01/18 15:49 10/01/18 15:49 10/01/18 15:49 CBC, BMP 10/01/18 16:15 10/01/18 16:15 Blood Type Blood Type A POSITIVE 10/01/18 16:15 INR, PTT INR 1.02 (0.83-1.09) 10/01/18 16:15 Problem List - Problems (1) Arterial occlusion, lower extremity Assessment/Plan: NPO IVF Heprin drip started in ER (no bolus per Dr. Stoner) Going to OR for open thrombectomy/declot this evening Medical optimization Consent Above plan discussed with Dr. Stoner and agrees Code(s): I70.209 - UNSP ATHSCL TEJON ARTERIES OF EXTREMITIES, UNSP EXTREMITY (2) Cold right foot Code(s): R20.9 - UNSPECIFIED DISTURBANCES OF SKIN SENSATION Visit type - Case Type Case Type: ED Admission - Emergency Emergency Visit: Yes Care time: The patient presented to the Emergency Department on the above date and was hospitalized for further evaluation of their emergent condition. - New patient This patient is new to me today: Yes Date on this admission: 10/01/18 <Carlos Stoner - Last Filed: 10/04/18 10:57> - Consultation REQUESTING PROVIDER: CONSULT REQUEST: We have been asked to surgically evaluate this patient for ( specify). PCP:Dariana Cyr HISTORY OF PRESENT ILLNESS: PMHx: PSHx: Home Medications Medication Instructions Recorded Aspirin [ASA -] 81 mg PO DAILY #30 tab.chew 12/02/17 Simvastatin 20 mg PO HS 03/12/18 Acetaminophen 1 - 2 mg PO Q6H PRN 30 Days #240 07/04/18 tablet Clopidogrel Bisulfate [Plavix -] 75 mg PO DAILY #30 tablet 07/04/18 Enoxaparin [Lovenox -] 80 mg SQ BID #60 disp.syrin 07/04/18 Gabapentin [Neurontin -] 300 mg PO TID #90 capsule 07/04/18 Pantoprazole Sodium [Protonix -] 40 mg PO DAILY #30 tablet.ec 07/04/18 Polyethylene Glycol 3350 [Miralax 17 gm PO TID bottle 07/04/18 119 gm Btl -] Sennosides/Docusate Sodium 2 tablet PO BID #120 tablet 07/04/18 [Pericolace -] oxyCODONE HCL [Roxicodone -] 10 mg PO Q4H PRN #30 tablet MDD 6 07/04/18 Allergies Allergy/AdvReac Type Severity Reaction Status Date / Time Penicillins Allergy Verified 10/01/18 16:33 REVIEW OF SYSTEMS: CONSTITUTIONAL: Absent: fever, chills, diaphoresis, generalized weakness, malaise, loss of appetite, weight change CARDIOVASCULAR: Absent: chest pain, syncope, palpitations, irregular heart rate, lightheadedness , peripheral edema RESPIRATORY: Absent: cough, shortness of breath, dyspnea with exertion, wheezing, stridor, hemoptysis GASTROINTESTINAL: Absent: abdominal pain, abdominal distension, nausea, vomiting, diarrhea, constipation, melena, hematochezia GENITOURINARY: Absent: dysuria, frequency, urgency, hesitancy, hematuria, flank pain, genital pain MUSCULOSKELETAL: Absent: myalgia, arthralgia, joint swelling, back pain, neck pain SKIN: Absent: rash, itching, pallor HEMATOLOGIC/IMMUNOLOGIC: Absent: easy bleeding, easy bruising, lymphadenopathy NEUROLOGIC: Absent: headache, focal weakness, paresthesias, dizziness, unsteady gait, seizure, mental status changes, bladder or bowel incontinence PSYCHIATRIC: Absent: anxiety, depression, suicidal or homicidal ideation, hallucinations. PHYSICAL EXAM: GENERAL: Awake, alert, and fully oriented, in no acute distress. HEAD: Normal with no signs of trauma. EYES: PERRL, sclera anicteric, conjunctiva clear. NECK: Normal ROM, supple without lymphadenopathy, JVD, or masses. LUNGS: Clear to auscultation bilat anteriorly. No wheezes, and no crackles. No accessory muscle use. HEART: Regular rate and rhythm. No murmurs ABDOMEN: Soft, nontender, not distended, normoactive bowel sounds, no guarding, no rebound, no masses. No organomegaly. MUSCULOSKELETAL: Normal ROM at all joints. No bony deformities or tenderness. No CVA tenderness. UPPER EXTREMITIES: 2+ pulses, warm, well-perfused. No cyanosis. Cap refill <2 seconds. No peripheral edema. LOWER EXTREMITIES: 2+ pulses, warm, well-perfused. No calf tenderness. No peripheral edema. NEUROLOGICAL: Normal speech, gait not observed. PSYCH: Cooperative. Good eye contact. Appropriate mood and affect. SKIN: Warm, dry, normal turgor, no rashes or lesions noted. Vital Signs Temperature 98.6 F 10/04/18 05:00 Pulse Rate 98 H 10/04/18 08:00 Respiratory Rate 20 10/04/18 08:16 Blood Pressure 111/63 10/04/18 08:00 O2 Sat by Pulse Oximetry (%) 97 10/04/18 08:16 Lab Results WBC 10.1 K/mm3 (4.0-10.0) H 10/04/18 05:30 RBC 3.52 M/mm3 (4.00-5.60) L 10/04/18 05:30 Hgb 10.2 GM/dL (11.7-16.9) L 10/04/18 05:30 Hct 30.9 % (35.4-49) L 10/04/18 05:30 MCV 87.7 fl (80-96) 10/04/18 05:30 MCHC 33.2 g/dl (32.0-35.9) 10/04/18 05:30 RDW 17.7 % (11.9-15.9) H 10/04/18 05:30 Plt Count 380 K/MM3 (134-434) 10/04/18 05:30 Sodium 136 mmol/L (136-145) 10/03/18 05:30 Potassium 4.4 mmol/L (3.5-5.1) 10/03/18 05:30 Chloride 103 mmol/L (98-107) 10/03/18 05:30 Carbon Dioxide 28 mmol/L (21-32) 10/03/18 05:30 Anion Gap 6 MMOL/L (8-16) L 10/03/18 05:30 BUN 14 mg/dL (7-18) 10/03/18 05:30 Creatinine 0.8 mg/dL (0.55-1.3) 10/03/18 05:30 Random Glucose 119 mg/dL (74-106) H 10/03/18 05:30 Calcium 8.9 mg/dL (8.5-10.1) 10/03/18 05:30 Blood Type A POSITIVE 10/01/18 16:15 Antibody Screen Negative 10/01/18 16:15 INR 1.07 (0.83-1.09) 10/03/18 05:30 Reocclusion of right femoral bypass. Will need emergency thrombectomy today.
[2018-10-01] MEDS ORDERED: ACETAMINOPHEN INJECTION 100 ML IVPB ONE (18:18)
[2018-10-01 19:53] LABS: PLATELET ESTIMATE INCREASED
[2018-10-01] MEDS ORDERED: fentaNYL CITRATE 250 MCG/5 ML VIAL ONE (21:09)
[2018-10-01] MEDS ORDERED: MIDAZOLAM HCL 2 MG/2 ML SINGLE DOSE VIAL ONE (21:10)
[2018-10-01] MEDS ORDERED: PROPOFOL 20 ML ONE ×4 (21:23→21:27)
[2018-10-01] MEDS ORDERED: CLINDAMYCIN 600 MG PREMIX BAG IVPB ONE (21:25)
[2018-10-01] MEDS ORDERED: HEPARIN NA (PORCINE) 5,000 UNITS/ML 1ML VIAL ONE ×2 (21:28→23:14)
[2018-10-01] MEDS ORDERED: CLINDAMYCIN PHOSPHATE 600 MG/4 ML VIAL ONE (21:30)
[2018-10-01] MEDS ORDERED: ATORVASTATIN CA 20 MG TABLET (FP) PO ONE (22:00)
[2018-10-01] MEDS ORDERED: GABAPENTIN 300 MG CAPSULE (FP) PO SCH (22:00)
[2018-10-01] MEDS ORDERED: WATER FOR INJ,STERILE 20 ML ONE (22:07)
[2018-10-01] MEDS ORDERED: ALTEPLASE 2 MG VIAL NR ONE (22:13)
[2018-10-01] MEDS ORDERED: LIDOCAINE HCL 1%, 10 MG/ML (20ML VIAL) NR ONE (23:02)
--- NOTE | 2018-10-01 23:17 | CONSULT ---
Consultation: REQUESTING PROVIDER: Dr. Vargas CONSULT REQUEST: We have been asked to medically evaluate this patient for post op monitoring thrombectomy. HISTORY OF PRESENT ILLNESS: This is a 58 year old male with a history of peripheral arterial disease, s/p multiple vascular surgeries, multiple thrombectomies and bypass grafts (listed below), and recent angiogram/balloon angioplasty of the LLE (last week as per EMR), who presented with right lower extremity/right foot pain/discoloration/ cool, put on heparin drip and taken to OR by Dr. Stoner for angioplasty and thrombectomy of right femoral artery. HEre for ICU monitoring post op. Received patient from PACU; AAOx3; no complaints, denies n, v, cp, sob, leg pain, swelling, decreased sensation or weakness. PMH: PAD, HTN, HLD Social : former smoker Past Surgical history:Aortobifem bypass 2011 R fem-tib bypass 10/2017 Multiple thrombectomies R ilio-tib bypass w/ non-reverse SVG 03/2018 R ax-fem, fem-fem bypass 07/04 REVIEW OF SYSTEMS: CONSTITUTIONAL: Absent: fever, chills, diaphoresis, generalized weakness, malaise, loss of appetite, weight change HEENT: Absent: rhinorrhea, nasal congestion, throat pain, throat swelling, difficulty swallowing, mouth swelling, ear pain, eye pain, visual changes CARDIOVASCULAR: Absent: chest pain, syncope, palpitations, irregular heart rate, lightheadedness , peripheral edema RESPIRATORY: Absent: cough, shortness of breath, dyspnea with exertion, orthopnea, wheezing, stridor, hemoptysis GASTROINTESTINAL: Absent: abdominal pain, abdominal distension, nausea, vomiting, diarrhea, constipation, melena, hematochezia GENITOURINARY: Absent: dysuria, frequency, urgency, hesitancy, hematuria, flank pain, genital pain MUSCULOSKELETAL: Absent: myalgia, arthralgia, joint swelling, back pain, neck pain SKIN: Absent: rash, itching, pallor HEMATOLOGIC/IMMUNOLOGIC: Absent: easy bleeding, easy bruising, lymphadenopathy, frequent infections ENDOCRINE: Absent: unexplained weight gain, unexplained weight loss, heat intolerance, cold intolerance NEUROLOGIC: Absent: headache, focal weakness or paresthesias, dizziness, unsteady gait, seizure, mental status changes, bladder or bowel incontinence PSYCHIATRIC: Absent: anxiety, depression, suicidal or homicidal ideation, hallucinations. PHYSICAL EXAMINATION Vital Signs - 24 hr 10/01/18 15:49 Temperature 98.4 F Pulse Rate 82 Respiratory 16 Rate Blood Pressure 120/73 O2 Sat by Pulse 97 Oximetry (%) GENERAL: Awake, alert, and fully oriented, in no acute distress. laying in bed comfortable; HEAD: Normal with no signs of trauma. EYES: Pupils equal, round and reactive to light, extraocular movements intact, sclera anicteric, conjunctiva clear. No lid lag. THROAT: oropharynx clear without exudates. Moist mucous membranes. poor dentition NECK: Normal range of motion, supple without lymphadenopathy, JVD, or masses. LUNGS: Breath sounds equal, clear to auscultation bilaterally. No wheezes, and no crackles. No accessory muscle use. HEART: Regular rate and rhythm, normal S1 and S2 without murmur, rub or gallop. ABDOMEN: Soft, nontender, not distended, normoactive bowel sounds, no guarding, no rebound, no masses. No hepatomegaly or splenomegaly. MUSCULOSKELETAL: Normal range of motion at all joints. No bony deformities or tenderness. No CVA tenderness. UPPER EXTREMITIES: 2+ pulses, warm, well-perfused. No cyanosis. No clubbing. Cap refill <2 seconds. No peripheral edema. LOWER EXTREMITIES: 2+ pulses, warm, well-perfused. No calf tenderness. No peripheral edema. angio gram scar on left and right LE; two c/d/i incision s/p thrombectomy no sweeeling, erythema or discharge; with blood on gauze but not currently bleeding ; +right posterior tibial pulse and +left pedal pulse found and marked with doppler NEUROLOGICAL: Cranial nerves II-XII intact. Normal speech. sensation in tact throughout; strength intact; PSYCHIATRIC: Cooperative. Good eye contact. Appropriate mood and affect. Laboratory Results - last 24 hr 10/01/18 10/01/18 10/01/18 16:15 16:15 16:15 WBC 11.5 H RBC 4.56 Hgb 13.2 Hct 40.1 MCV 88.0 MCH 29.0 MCHC 33.0 RDW 17.0 H Plt Count 483 H MPV 7.1 L Absolute Neuts (auto) 7.8 Neutrophils % 67.8 Lymphocytes % 22.5 Monocytes % 7.1 Eosinophils % 1.7 Basophils % 0.9 Nucleated RBC % 0 Platelet Estimate Increased Platelet Comment No clumping noted PT with INR 12.00 INR 1.02 PTT (Actin FS) 36.6 H Sodium 135 L Potassium 4.5 Chloride 103 Carbon Dioxide 27 Anion Gap 5 L BUN 22 H Creatinine 1.0 Creat Clearance w eGFR 76.48 Random Glucose 97 Calcium 9.3 Total Bilirubin 0.3 AST 13 L ALT 20 Alkaline Phosphatase 88 Total Protein 7.6 Albumin 3.5 Blood Type Antibody Screen 10/01/18 16:15 WBC RBC Hgb Hct MCV MCH MCHC RDW Plt Count MPV Absolute Neuts (auto) Neutrophils % Lymphocytes % Monocytes % Eosinophils % Basophils % Nucleated RBC % Platelet Estimate Platelet Comment PT with INR INR PTT (Actin FS) Sodium Potassium Chloride Carbon Dioxide Anion Gap BUN Creatinine Creat Clearance w eGFR Random Glucose Calcium Total Bilirubin AST ALT Alkaline Phosphatase Total Protein Albumin Blood Type A POSITIVE Antibody Screen Negative Active Medications Generic Name Dose Route Start Last Admin Trade Name Freq PRN Reason Stop Dose Admin Gabapentin 300 mg 10/01/18 22:00 Neurontin - PO TID [facility]AL[facility] Heparin Sodium (Porcine) 25, 500 mls @ 20 mls/hr 10/01/18 16:15 10/01/18 16: 26 000 unit/ Sodium Chloride IV 1,000 unit/hr TITR [facility] 20 mls/hr Administration Protocol 1,000 UNIT/HR ASSESSMENT/PLAN: This is a 58 year old male with severe peripheral arterial disease s/p many thrombectomies and bypass grafts, present with cool, discolored , non palpable pulse, taken to OR BY vascular for angioplasty and open thrombectomy of right femoral artery. POD #0 Open thrombectomy rt femoral bypass/Angiogram/Angioplasty bypass and posterior tibial artery -tpa administered; thrombus removed, est blood loss 100cc as per operative note ; -cont heparin ggt -monitor ptt -can reposition and move in bed; not able to walk/bear weight as per surgery rec -diet in am -pain controlled; oxycodone -monitor for bleed; check pulses VTE ; on heparin Dispo: We will continue to follow the patient. Thank you for this consultative opportunity. Visit type - Emergency Visit Emergency Visit: Yes ED Registration Date: 10/01/18 Care time: The patient presented to the Emergency Department on the above date and was hospitalized for further evaluation of their emergent condition. - New Patient This patient is new to me today: Yes Date on this admission: 10/02/18 - Critical Care Critical Care patient: Yes Total Critical Care Time (in minutes): 35 Critical Care Statement: The care of this patient involved high complexity decision making to prevent further life threatening deterioration of the patient 's condition and/or to evaluate & treat vital organ system(s) failure or risk of failure.
[2018-10-01] MEDS ORDERED: THROMBIN (BOVINE) 5,000 UNIT VIAL TP ONE (23:27)
[2018-10-01] MEDS ORDERED: POVIDONE-IODINE OINTMENT 10% - 28.4 GM TUBE ONE (23:45)
[2018-10-01] MEDS ORDERED: POVIDONE-IODINE OINTMENT 10% - 28.4 GM TUBE TP ONE (23:50)
--- NOTE | 2018-10-01 23:51 | OP ---
Operative Note - Note: Operative Date: 10/01/18 Pre-Operative Diagnosis: Thrombosed right femoral bypass Operation: Open thrombectomy femoral bypass. Angiogram. Angioplasty bypass and posterior tibial artery. TPA administration. Findings: Occlusion of femoral graft with laminated adherent clot. Stenosis of posterior tibial artery Post-Operative Diagnosis: Same as Pre-op Surgeon: Carlos Stoner Director Embalmer: Victor M Oconnor Anesthesiologist/STONE POLISHER HAND: Jadon Rfufin Anesthesia: Fractional Specimens Removed: thrombus Estimated Blood Loss (mls): 100
--- NOTE | 2018-10-02 00:04 | SURG ---
Surgery Continuity Coordinator Note Continuity Coordinator: Victor M Oconnor PA-C Date of Service: 10/01/18 Diagnosis: Thrombosed right femoral bypass Procedure: Open thrombectomy femoral bypass. Angiogram. Angioplasty bypass and posterior tibial artery. TPA administration. I was present for the entirety of the operative procedure. For further detail, please refer to operative report. Visit type - Case Type Case Type: ED Admission - Emergency Emergency Visit: Yes ED Registration Date: 10/01/18 Care time: The patient presented to the Emergency Department on the above date and was hospitalized for further evaluation of their emergent condition.
[2018-10-02] MEDS ORDERED: ONDANSETRON 4 MG/2 ML VIAL IVPUSH PRN ×2 (00:18→19:05)
[2018-10-02] MEDS ORDERED: oxyCODONE HCL 5 MG TABLET PO PRN ×2 (00:27→19:05)
[2018-10-02] MEDS ORDERED: ACETAMINOPHEN 1000 MG/100 ML VIAL (NON FORMULARY) IVPB PRN ×2 (00:28→19:05)
[2018-10-02] MEDS ORDERED: LACTATED RINGERS SOLUTION 1,000 ML IV SCH (00:30)
[2018-10-02] MEDS ORDERED: CLINDAMYCIN 600MG PREMIX IVPB 600 MG/50 ML BAG IVPB ONE (05:00)
[2018-10-02] MEDS ORDERED: MORPHINE SULFATE 2 MG/ML VIAL IVPUSH ONE (06:52)
[2018-10-02 07:10] LABS: INR 1.03 (0.83-1.09); PROTHROMBIN TIME (PATIENT) 12.2 SEC (9.7-13.0)
[2018-10-02 07:51] LABS: ALBUMIN 2.9 g/dl (3.4-5.0); ALK PHOS 115 U/L (45-117); ANION GAP 7 MMOL/L (8-16); BILIRUBIN,TOTAL 0.3 mg/dL (0.2-1); BLOOD UREA NITROGEN 17 mg/dL (7-18); CALCIUM 8.9 mg/dL (8.5-10.1); CHLORIDE 106 mmol/L (98-107); CO2 26 mmol/L (21-32); CREATININE 0.7 mg/dL (0.55-1.3); GLUCOSE,RANDOM 97 mg/dL (74-106); MAGNESIUM 1.9 mg/dL (1.8-2.4); PHOSPHOROUS 3.7 mg/dL (2.5-4.9); POTASSIUM 4.4 mmol/L (3.5-5.1); SGOT/AST 46 U/L (15-37); SGPT/ALT 40 U/L (13-61); SODIUM 139 mmol/L (136-145); TOT PROT 6.1 g/dl (6.4-8.2)
[2018-10-02] MEDS ORDERED: morphine SULFATE 4 MG/ML VIAL IVPUSH ONE (08:00)
--- NOTE | 2018-10-02 08:56 | PN ---
Progress Note (short form) - Note Progress Note: POD#1 Pt with pain in the foot this am. Vital Signs Period Temp Pulse Resp BP Sys/White Pulse Ox Last 24 Hr 97.6 F-98.8 F 74-89 14-22 107-132/64-84 97-100 GEN: A&0x3 Right leg: dressing at groin saturated with blood. No active bleeding i levy in place. No evidence of hematoma. Pulse with doppler(bedside) to groin and in upper thigh inferior to incision. Poor signal at knee and no pulses distally with doppler. His foot is cool to touch and mottled. Left leg: foot warm to touch. CBC, BMP 10/01/ 16:15 10/02/18 05:30 A/P: 58 yo male s/p Open thrombectomy femoral bypass. Angiogram. Angioplasty bypass and posterior tibial artery. TPA administration. Pt seen this am with Dr. Stoner, plan for the OR today He remains npo IV heparin started this am
[2018-10-02] MEDS ORDERED: ALTEPLASE IVPB ONE (09:00)
[2018-10-02] MEDS ORDERED: DEXTROSE 5% IVPB ONE (09:00)
[2018-10-02] MEDS ORDERED: WATER IVPB ONE (09:00)
[2018-10-02] MEDS ORDERED: LIDOCAINE HCL 1%, 10 MG/ML (20ML VIAL) ONE (09:26)
[2018-10-02] MEDS ORDERED: HEPARIN NA (PORCINE) 5,000 UNITS/ML 1ML VIAL ONE ×2 (09:26→14:15)
[2018-10-02] MEDS ORDERED: POVIDONE-IODINE OINTMENT 10% - 28.4 GM TUBE ONE (09:26)
[2018-10-02] MEDS ORDERED: MUPIROCIN 2% TOPICAL OINTMENT FOR DECOLONIZATION NS SCH (10:00)
[2018-10-02] MEDS ORDERED: DOCUSATE SODIUM 100 MG CAPSULE (FP) PO SCH (10:00)
[2018-10-02] MEDS ORDERED: PANTOPRAZOLE SODIUM 40 MG VIAL IVPUSH SCH (10:00)
--- NOTE | 2018-10-02 10:33 | PN ---
Teaching Attending Note Name of Resident: Karishma Ortiz ATTENDING PHYSICIAN STATEMENT I saw and evaluated the patient. I reviewed the resident's note and discussed the case with the resident. I agree with the resident's findings and plan as documented. SUBJECTIVE: Patient seen and examined in the ICU. Awake and alert. For return to the OR due to pulse signal being lost in the RLE. (+) discomfort at the bottom of the foot. No CP or SOB. On IV Heparin drip. Intake & Output 09/29/18 09/30/18 10/01/18 10/02/18 23:59 23:59 23:59 23:59 Intake Total 175 Output Total 675 Balance 175 -675 Weight 165 lb 165 lb Last Vital Signs Temp Pulse Resp BP Pulse Ox 98.4 F 80 20 118/69 97 10/02/18 06:00 10/02/18 08:00 10/02/18 08:00 10/02/18 08:00 10/02/18 03:46 Active Medications Acetaminophen (Ofirmev Injection -) 1,000 mg IVPB Q6H PRN PRN Reason: PAIN LEVEL 1-5 Chlorhexidine Gluconate (Hibiclens For Decolonization -) 1 applic TP HS [facility] Docusate Sodium (Colace -) 100 mg PO DAILY [facility] Last Admin: 10/02/18 09:21 Dose: Not Given Fentanyl (Sublimaze Injection -) 25 mcg IVPUSH [id number] PRN PRN Reason: PAIN-PACU ORDER X 4 DOSES ONLY Last Admin: 10/02/18 05:14 Dose: 25 mcg Gabapentin (Neurontin -) 300 mg PO TID [facility] Heparin Sodium (Porcine) 25, (000 unit/ Sodium Chloride) 500 mls @ 20 mls/hr IV TITR [facility]; Protocol Last Titration: 10/02/18 06:57 Dose: 1,000 unit/hr, 20 mls/hr Lactated Ringer's (Lactated Ringers Solution) 1,000 mls @ 75 mls/hr IV ASDIR [facility] Last Admin: 10/02/18 00:45 Dose: 75 mls/hr Mupirocin (Bactroban Ointment (For Decolonization) -) 1 applic NS BID [facility] Stop: 10/07/18 09:59 Ondansetron HCl (Zofran Injection) 4 mg IVPUSH Q6H PRN PRN Reason: NAUSEA AND/OR VOMITING Oxycodone HCl (Roxicodone -) 5 mg PO Q4H PRN PRN Reason: PAIN LEVEL 6-10 Last Admin: 10/02/18 04:03 Dose: 5 mg Pantoprazole Sodium (Protonix Iv) 40 mg IVPUSH DAILY [facility] GENERAL: Awake, alert, and oriented, mildly uncomfortable; HEAD: Normal with no signs of trauma. EYES: sclera anicteric, conjunctiva clear. No lid lag. THROAT: oropharynx clear without exudates. Moist mucous membranes. poor dentition NECK: Normal range of motion, supple without lymphadenopathy, JVD, or masses. LUNGS: clear to auscultation bilaterally. No wheezes, and no crackles. No accessory muscle use. HEART: Regular rate and rhythm, normal S1 and S2 without murmur, rub or gallop. ABDOMEN: Soft, nontender, not distended, normoactive bowel sounds, no guarding, no rebound, no masses. No hepatomegaly or splenomegaly. MUSCULOSKELETAL: Normal range of motion at all joints. No bony deformities or tenderness. No CVA tenderness. UPPER EXTREMITIES: 2+ pulses, warm, well-perfused. No cyanosis. No clubbing. Cap refill <2 seconds. No peripheral edema. LOWER EXTREMITIES: diminished pulse, (+) Mottling NEUROLOGICAL: Non-focal, decreased sensation RLE PSYCHIATRIC: Cooperative. Good eye contact. Appropriate mood and affect. Laboratory Results - last 24 hr 10/01/18 10/01/18 10/01/18 16:15 16:15 16:15 WBC 11.5 H RBC 4.56 Hgb 13.2 Hct 40.1 MCV 88.0 MCH 29.0 MCHC 33.0 RDW 17.0 H Plt Count 483 H MPV 7.1 L Absolute Neuts (auto) 7.8 Neutrophils % 67.8 Lymphocytes % 22.5 Monocytes % 7.1 Eosinophils % 1.7 Basophils % 0.9 Nucleated RBC % 0 Platelet Estimate Increased Platelet Comment No clumping noted PT with INR 12.00 INR 1.02 PTT (Actin FS) 36.6 H Sodium 135 L Potassium 4.5 Chloride 103 Carbon Dioxide 27 Anion Gap 5 L BUN 22 H Creatinine 1.0 Creat Clearance w eGFR 76.48 Random Glucose 97 Calcium 9.3 Total Bilirubin 0.3 AST 13 L ALT 20 Alkaline Phosphatase 88 Total Protein 7.6 Albumin 3.5 Blood Type Antibody Screen 10/01/18 16:15 WBC RBC Hgb Hct MCV MCH MCHC RDW Plt Count MPV Absolute Neuts (auto) Neutrophils % Lymphocytes % Monocytes % Eosinophils % Basophils % Nucleated RBC % Platelet Estimate Platelet Comment PT with INR INR PTT (Actin FS) Sodium Potassium Chloride Carbon Dioxide Anion Gap BUN Creatinine Creat Clearance w eGFR Random Glucose Calcium Total Bilirubin AST ALT Alkaline Phosphatase Total Protein Albumin Blood Type A POSITIVE Antibody Screen Negative ASSESSMENT/PLAN: POD #1 Open thrombectomy Right femoral bypass/Angiogram/Angioplasty bypass and posterior tibial artery, now with loss of arterial pulse Severe peripheral arterial disease Will be taken back to the OR by vascular surgery O2 as needed IV Heparin with close monitoring of PTT Requires Q1 hour monitoring of arterial doppler Pain control Requires ICU monitoring for Q1 doppler checks. Dr Felipe Critical care time spent in reviewing chart, evaluating patient and formulating plan - 36 minutes.
--- NOTE | 2018-10-02 10:47 | EKG ---
Test Reason : Blood Pressure : / mmHG Vent. Rate : 078 BPM Atrial Rate : 078 BPM P-R Int : 126 ms QRS Dur : 086 ms QT Int : 384 ms P-R-T Axes : 019 -01 012 degrees QTc Int : 437 ms NORMAL SINUS RHYTHM NORMAL ECG WHEN COMPARED WITH ECG OF 29-JUN-2018 01:17, QUESTIONABLE CHANGE IN QRS AXIS Confirmed by VERNA ASHLEY MD ([id number]) on 10/02/2018 10:47:00 AM Referred By: Confirmed By:VERNA ASHLEY MD
--- NOTE | 2018-10-02 10:59 | PN ---
Progress Note, Physician Chief Complaint: patient seen and examined he is NPO going back to OR today he complaining of pain in right foot on iv heparin - Current Medication List Current Medications: Active Medications Acetaminophen (Ofirmev Injection -) 1,000 mg IVPB Q6H PRN PRN Reason: PAIN LEVEL 1-5 Chlorhexidine Gluconate (Hibiclens For Decolonization -) 1 applic TP HS [facility] Docusate Sodium (Colace -) 100 mg PO DAILY [facility] Last Admin: 10/02/18 09:21 Dose: Not Given Fentanyl (Sublimaze Injection -) 25 mcg IVPUSH [id number] PRN PRN Reason: PAIN-PACU ORDER X 4 DOSES ONLY Last Admin: 10/02/18 05:14 Dose: 25 mcg Gabapentin (Neurontin -) 300 mg PO TID [facility] Heparin Sodium (Porcine) 25, (000 unit/ Sodium Chloride) 500 mls @ 20 mls/hr IV TITR [facility]; Protocol Last Titration: 10/02/18 06:57 Dose: 1,000 unit/hr, 20 mls/hr Lactated Ringer's (Lactated Ringers Solution) 1,000 mls @ 75 mls/hr IV ASDIR [facility] Last Admin: 10/02/18 00:45 Dose: 75 mls/hr Mupirocin (Bactroban Ointment (For Decolonization) -) 1 applic NS BID [facility] Stop: 10/07/18 09:59 Last Admin: 10/02/18 10:44 Dose: 1 applic Ondansetron HCl (Zofran Injection) 4 mg IVPUSH Q6H PRN PRN Reason: NAUSEA AND/OR VOMITING Oxycodone HCl (Roxicodone -) 5 mg PO Q4H PRN PRN Reason: PAIN LEVEL 6-10 Last Admin: 10/02/18 04:03 Dose: 5 mg Pantoprazole Sodium (Protonix Iv) 40 mg IVPUSH DAILY [facility] Last Admin: 10/02/18 10:44 Dose: 40 mg - Objective Vital Signs: Vital Signs Temperature 98.4 F 10/02/18 06:00 Pulse Rate 80 10/02/18 10:00 Respiratory Rate 20 10/02/18 10:00 Blood Pressure 108/65 10/02/18 10:00 O2 Sat by Pulse Oximetry (%) 100 10/02/18 10:00 Constitutional: Yes: Calm Cardiovascular: Yes: Regular Rate and Rhythm, S1, S2 Respiratory: Yes: CTA Bilaterally Gastrointestinal: Yes: Normal Bowel Sounds, Soft Extremities: Yes: Other (right foot cold mottling of toes no distal pulse) Edema: No Labs: CBC, BMP 10/01/18 16:15 10/02/18 05:30 INR, PTT INR 1.03 (0.83-1.09) 10/02/18 05:30 Problem List - Problems (1) Cold right foot Assessment/Plan: NPO- to go back to OR again today bc loss of pulse iv heparin Operative Date: 10/01/18 Pre-Operative Diagnosis: Thrombosed right femoral bypass Operation: Open thrombectomy femoral bypass. Angiogram. Angioplasty bypass and posterior tibial artery. TPA administration. Findings: Occlusion of femoral graft with laminated adherent clot. Stenosis of posterior tibial artery Post-Operative Diagnosis: Same as Pre-op Surgeon: Carlos Stoner Office Administrator: Victor M Oconnor Anesthesiologist/COUNTER SERVER: Jadon Ruffin Anesthesia: Fractional Specimens Removed: thrombus Estimated Blood Loss (mls): 10 Code(s): R20.9 - UNSPECIFIED DISTURBANCES OF SKIN SENSATION (2) HLD (hyperlipidemia) Assessment/Plan: lipitor monitor lft lipid panel Code(s): E78.5 - HYPERLIPIDEMIA, UNSPECIFIED Qualifiers: Hyperlipidemia type: pure hypercholesterolemia Qualified Code(s): E78.00 - Pure hypercholesterolemia, unspecified; E78.0 - Pure hypercholesterolemia (3) Neuropathic pain of foot Assessment/Plan: neurotin tid Code(s): G57.90 - UNSPECIFIED MONONEUROPATHY OF UNSPECIFIED LOWER LIMB
[2018-10-02] MEDS ORDERED: PAPAVERINE HCL 30 MG/1 ML 10 ML VIAL NR ONE (11:07)
[2018-10-02] MEDS ORDERED: ETOMIDATE 20 MG/10 ML AMPUL IVPUSH ONE (11:19)
[2018-10-02] MEDS ORDERED: PROPOFOL 20 ML ONE (11:19)
[2018-10-02] MEDS ORDERED: fentaNYL CITRATE 250 MCG/5 ML VIAL ONE (11:19)
[2018-10-02] MEDS ORDERED: ROCURONIUM BROMIDE 50 MG/5 ML VIAL ONE ×2 (11:19→14:08)
[2018-10-02] MEDS ORDERED: PHENYLEPHRINE HCL 10 MG/1 ML SINGLE DOSE VIAL ONE (11:21)
--- NOTE | 2018-10-02 11:36 | PN ---
Physical Exam: SUBJECTIVE: Patient seen this morning and reports pain in his right foot. Patients posterior tibial pulse was lost around 5 am, the heparin drip was restarted. Patient is going back to the OR this afternoon. OBJECTIVE: Vital Signs Temperature 98.4 F 10/02/18 06:00 Pulse Rate 73 10/02/18 11:07 Respiratory Rate 20 10/02/18 11:07 Blood Pressure 112/69 10/02/18 11:07 O2 Sat by Pulse Oximetry (%) 100 10/02/18 10:00 GENERAL: The patient is awake, alert, and fully oriented, in no acute distress. HEAD: Normal with no signs of trauma. EYES: PERRL, extraocular movements ENT: moist mucous membranes. LUNGS: Breath sounds equal, clear to auscultation bilaterally HEART: Regular rate and rhythm, S1, S2 without murmur, rub or gallop. ABDOMEN: Soft, nontender, nondistended, normoactive bowel sounds, no guarding, EXTREMITIES: multiple scars up his LE, no posterior pulse on his right foot, cold to touch, mottled PSYCH: Normal mood, normal affect. SKIN: Warm, dry, normal turgor, no rashes or lesions noted Vital Signs Temperature 98.4 F 10/02/18 06:00 Pulse Rate 73 10/02/18 11:07 Respiratory Rate 20 10/02/18 11:07 Blood Pressure 112/69 10/02/18 11:07 O2 Sat by Pulse Oximetry (%) 100 10/02/18 10:00 Active Medications Acetaminophen (Ofirmev Injection -) 1,000 mg IVPB Q6H PRN PRN Reason: PAIN LEVEL 1-5 Chlorhexidine Gluconate (Hibiclens For Decolonization -) 1 applic TP HS [facility] Docusate Sodium (Colace -) 100 mg PO DAILY [facility] [place] Last Admin: 10/02/18 09:21 Dose: Not Given Fentanyl (Sublimaze Injection -) 25 mcg IVPUSH [id number] PRN PRN Reason: PAIN-PACU ORDER X 4 DOSES ONLY Last Admin: 10/02/18 05:14 Dose: 25 mcg Gabapentin (Neurontin -) 300 mg PO TID [facility] [place] Heparin Sodium (Porcine) 25, (000 unit/ Sodium Chloride) 500 mls @ 20 mls/hr IV TITR [facility]; Protocol Last Titration: 10/02/18 06:57 Dose: 1,000 unit/hr, 20 mls/hr Lactated Ringer's (Lactated Ringers Solution) 1,000 mls @ 75 mls/hr IV ASDIR [facility] [place] Last Admin: 10/02/18 00:45 Dose: 75 mls/hr Mupirocin (Bactroban Ointment (For Decolonization) -) 1 applic NS BID [facility] [place] Stop: 10/07/18 09:59 Last Admin: 10/02/18 10:44 Dose: 1 applic Ondansetron HCl (Zofran Injection) 4 mg IVPUSH Q6H PRN PRN Reason: NAUSEA AND/OR VOMITING Oxycodone HCl (Roxicodone -) 5 mg PO Q4H PRN PRN Reason: PAIN LEVEL 6-10 Last Admin: 10/02/18 04:03 Dose: 5 mg Pantoprazole Sodium (Protonix Iv) 40 mg IVPUSH DAILY [facility] [place] Last Admin: 10/02/18 10:44 Dose: 40 mg ASSESSMENT/PLAN: Patient is a 58 y/o male with a history of multiple vascular surgeries of LE who is here for thrombectomy of right femoral. Neuro - A&O x3 - vitals stable - continue gabapentin for neuropathy Cardio - continue atorvastatin 20 mg po hs Pulm - stable - 40 pack year history GI - px pantoprazole 40 IV push dialy Renal - stable Heme - POD # 1 for open thrombectomy of R femoral bypass angiogram/angioplasty - hx of numerous vascular surgeries - patient lost pulse overnight, to return to OR today - continue heparin drip, monitor PTT - metastatic workup from 07/04, small prostatic calcifications and mildlyenlarged, no other abnormalities - f/u PSA - Q1 arterial doppler FEN - NPO for surgery Dispo: monitor pulses after surgery, pain management as per surgery Tessy: [phone] Visit type - Emergency Visit Emergency Visit: No - New Patient This patient is new to me today: Yes Date on this admission: 10/02/18 - Critical Care Critical Care patient: Yes Total Critical Care Time (in minutes): 40 Critical Care Statement: The care of this patient involved high complexity decision making to prevent further life threatening deterioration of the patient 's condition and/or to evaluate & treat vital organ system(s) failure or risk of failure.
[2018-10-02] MEDS ORDERED: LIDOCAINE HCL/PF 2% SDV 5ML VIAL ONE (11:42)
[2018-10-02] MEDS ORDERED: CLINDAMYCIN PHOSPHATE 600 MG/4 ML VIAL ONE (11:59)
[2018-10-02] MEDS ORDERED: CLINDAMYCIN PHOSPHATE 600 MG/4 ML VIAL IVPB ONE (11:59)
[2018-10-02] MEDS ORDERED: LIDOCAINE HCL 1%, 10 MG/ML (50 mL VIAL) IJ ONE (12:17)
[2018-10-02] MEDS ORDERED: DEXAMETHASONE SOD PHOSPHATE 4 MG/1 ML VIAL ONE (13:34)
[2018-10-02] MEDS ORDERED: POVIDONE-IODINE OINTMENT 10% - 28.4 GM TUBE TP ONE (15:24)
--- NOTE | 2018-10-02 15:36 | OP ---
Operative Note - Note: Operative Date: 10/02/18 Pre-Operative Diagnosis: Thrombosed graft right leg, ischemic leg Operation: Bypass from axillary graft to tibial bypass graft. Angiogram right leg. [place] short saphenous vein Findings: Occlusion of axillo-femoral distal to fem-fem crossover limb. Patent fem-tibial bypass and [employer]VEYOR FEEDER to foot. Post-Operative Diagnosis: Same as Pre-op Surgeon: Carlos Stoner Public Relations Consultant: Leah Robertson Anesthesiologist/HEAD BONE GRINDER: Chauncey Beckham Anesthesia: General Estimated Blood Loss (mls): 200
[2018-10-02] MEDS ORDERED: HYDROmorphone HCl 2 MG/ML VIAL IVPUSH ONE (16:15)
[2018-10-02] MEDS ORDERED: SODIUM CHLORIDE 1,000 ML IV SCH (17:15)
--- NOTE | 2018-10-02 17:18 | SURG ---
Surgery Dressmaker Garment Fitter Note Dressmaker Garment Fitter: Leah Robertson PA-C Date of Service: 10/02/18 Diagnosis: Thrombosed graft right leg, ischemic leg Procedure: Bypass from axillary graft to tibial bypass graft. Angiogram right leg. [place] short saphenous vein I was present for the entirety of the operative procedure. For further detail, please refer to operative report.
[2018-10-02] MEDS ORDERED: HEPARIN NA (PORCINE) 5,000 UNITS/ML 1ML VIAL IVPUSH PRN (17:35)
[2018-10-02] MEDS: HEPARIN - 25,000 UNIT in SODIUM CHLORIDE 495 ML IV SCH ×2 (18:00)
[2018-10-02] MEDS: CLINDAMYCIN 600MG PREMIX IVPB 600 MG/50 ML BAG IVPB SCH (18:53)
[2018-10-02] MEDS ORDERED: ATORVASTATIN CA 20 MG TABLET (FP) PO ONE (19:05)
[2018-10-02] MEDS: oxyCODONE HCL 5 MG TABLET PO PRN (20:29)
[2018-10-02] MEDS: GABAPENTIN 300 MG CAPSULE (FP) PO SCH (21:27)
[2018-10-02] MEDS: MUPIROCIN 2% TOPICAL OINTMENT FOR DECOLONIZATION NS SCH (21:27)
[2018-10-02] MEDS: CHLORHEXIDINE GLUCONATE 4% CLEANSER FOR DECOLONIZATION TP SCH (21:29)
[2018-10-02] MEDS ORDERED: CHLORHEXIDINE GLUCONATE 4% CLEANSER FOR DECOLONIZATION TP SCH (22:00)
[2018-10-02] MEDS: HEPARIN NA (PORCINE) 5,000 UNITS/ML 1ML VIAL IVPUSH PRN (22:39)
[2018-10-03] MEDS: oxyCODONE HCL 5 MG TABLET PO PRN ×4 (01:46→21:59)
[2018-10-03] MEDS: CLINDAMYCIN 600MG PREMIX IVPB 600 MG/50 ML BAG IVPB SCH (01:48)
[2018-10-03 05:52] LABS: BASO % 0.2 % (0-2.0); EOS % 0.3 % (0-4.5); HEMATOCRIT 34.2 % (35.4-49); HEMOGLOBIN 11.4 GM/dL (11.7-16.9); LYMPH % 20.2 % (8-40); MCH 29.3 pg (25.7-33.7); MCHC 33.4 g/dl (32.0-35.9); MEAN CELL VOLUME 87.7 fl (80-96); MEAN PLT VOLUME 7.1 fl (7.5-11.1); MONO % 7.6 % (3.8-10.2); NEUT % 71.7 % (42.8-82.8); PLATELET COUNT 400 K/MM3 (134-434); RBC 3.89 M/mm3 (4.00-5.60); RDW 17.6 % (11.9-15.9)
[2018-10-03 06:05] LABS: INR 1.07 (0.83-1.09); PROTHROMBIN TIME (PATIENT) 12.6 SEC (9.7-13.0)
[2018-10-03] MEDS: GABAPENTIN 300 MG CAPSULE (FP) PO SCH ×3 (06:07→21:22)
[2018-10-03] MEDS: HEPARIN - 25,000 UNIT in SODIUM CHLORIDE 495 ML IV SCH ×2 (06:08→18:52)
[2018-10-03 06:20] LABS: ALBUMIN 2.9 g/dl (3.4-5.0); ALK PHOS 115 U/L (45-117); ANION GAP 6 MMOL/L (8-16); BILIRUBIN,TOTAL 0.4 mg/dL (0.2-1); BLOOD UREA NITROGEN 14 mg/dL (7-18); CALCIUM 8.9 mg/dL (8.5-10.1); CHLORIDE 103 mmol/L (98-107); CO2 28 mmol/L (21-32); CREATININE 0.8 mg/dL (0.55-1.3); GLUCOSE,RANDOM 119 mg/dL (74-106); MAGNESIUM 1.9 mg/dL (1.8-2.4); PHOSPHOROUS 4.1 mg/dL (2.5-4.9); POTASSIUM 4.4 mmol/L (3.5-5.1); SGOT/AST 55 U/L (15-37); SGPT/ALT 61 U/L (13-61); SODIUM 136 mmol/L (136-145); TOT PROT 6.4 g/dl (6.4-8.2)
[2018-10-03] MEDS: PANTOPRAZOLE SODIUM 40 MG VIAL IVPUSH SCH (09:57)
[2018-10-03] MEDS: DOCUSATE SODIUM 100 MG CAPSULE (FP) PO SCH (09:58)
[2018-10-03] MEDS: MUPIROCIN 2% TOPICAL OINTMENT FOR DECOLONIZATION NS SCH ×3 (09:58→21:27)
--- NOTE | 2018-10-03 10:25 | PN ---
Progress Note (short form) - Note Progress Note: Anesthesia postop note, POD#1. S/P Redo Bypass lower extremity. Under GA. Pat seen and examined. VSS. Pain well controlled. No apparent post anesthesia complications. Continued care as per primary team.
--- NOTE | 2018-10-03 13:08 | OP ---
DATE OF OPERATION: 10/01/2018 SURGEON: Carlos Leung MD DOWELER: JUSTIN Nuñez PROCEDURE: Open thrombectomy of right femoral bypass graft. Angiogram. Angioplasty of the femoral bypass and posterior tibial artery. Administration of tissue plasminogen activator. PREOPERATIVE DIAGNOSIS: Thrombosed right femoral bypass and ischemic limb. POSTOPERATIVE DIAGNOSIS: Thrombosed right femoral bypass and ischemic limb. ANESTHESIA: Fractional. ANESTHESIOLOGIST: Jadon Ruffin MD OPERATIVE FINDINGS: There was thrombosis of the distal portion of the axillo right femoral bypass and the right femoral tibial bypass. There was some stenosis of the posterior tibial artery. OPERATIVE PROCEDURE: Following routine patient identification with side and site verification, intravenous sedation was established. The right lower abdomen, groin, and leg were prepped with ChloraPrep. Time-out was performed. An incision was made over the distal axillo right femoral bypass distal to the takeoff of the femoral femoral component going to the left leg. Lidocaine 1% was used for anesthesia. The graft was mobilized and secured with vessel loops. The patient was systemically heparinized. A transverse incision was made in the graft. A No. 4 Johnnie Catheter was passed proximally with removal of thrombus and yarsani of strong arterial inflow. The graft was cleared with a vascular clamp. Thrombectomy of the distal portion was then performed with No. 4 and No. 3 Johnnie Catheters with the removal of thrombus. No significant arterial back-bleeding was seen. A wire and catheter were advanced distally into the femoral tibial graft, and contrast injected showing that the graft appeared patent with runoff into the posterior tibial artery, which was narrowed in several sections. A fine wire was then passed distally, and angioplasty of the distal posterior tibial artery was performed using a 2.5-mm balloon. The bypass graft was dilated with a 3-mm balloon. Repeat imaging showed the vessel to be patent with areas now of spasm in some of the posterior tibial artery. Through a catheter, TPA 4 mg was slowly injected. Additional thrombectomy of the proximal graft was then performed using a clamp to remove chronic thrombus. Repeat imaging showed that there was still some narrowing in the graft, but there was patent flow distally. The graft incision was then closed with running suture of 6-0 Prolene. Clamps were removed. The graft was then punctured more proximally with a micropuncture needle, and angiography performed. This showed that there was still significant thrombus within the graft distal to the previous thrombectomy. Therefore, another incision was made over the lower portion of the graft near the anastomosis to the vein graft. The graft was mobilized and secured with vessel loops and opened again through a transverse incision. Chronic laminated thrombus was removed with a clamp. It appeared to completely remove all of the thrombus that was present in the graft. Imaging showed that the anastomosis to the vein graft was patent. The graft incision was again closed with a running suture of 6-0 Prolene, and all clamps were removed. Repeat imaging revealed good flow through the bypass graft and into the outflow posterior tibial artery. The wounds were then checked for hemostasis. Thrombin and Gelfoam were applied, and when the wounds were dry, they were closed with interrupted sutures of 3-0 Vicryl on subcutaneous tissues and skin levy. Sterile dressings were applied, and the patient was taken to the recovery room in stable condition. CARLOS LEUNG M.D. [id number]
--- NOTE | 2018-10-03 13:40 | OP ---
DATE OF OPERATION: 10/02/2018 SURGEON: Carlos Stoner MD ARRANGING FUNERAL DIRECTOR: JUSTIN Dos Santos PROCEDURE: Vein bypass from axillary graft to tibial bypass graft of the right leg. Angiogram of the right leg. Infusion of tissue plasminogen activator. Harvesting of the short saphenous vein from the right leg. PREOPERATIVE DIAGNOSIS: Re-thrombosis of the right lower extremity graft with an ischemic limb. POSTOPERATIVE DIAGNOSIS: Re-thrombosis of the right lower extremity graft with an ischemic limb. ANESTHESIA: General. ANESTHESIOLOGIST: Chauncey Beckham MD OPERATIVE FINDINGS: The femoral tibial vein bypass was narrowed, but it had no thrombus. Runoff through the distal anastomosis was patent with vessels seen down into the plantar aspect of the foot. OPERATIVE PROCEDURE: Following routine patient identification with side and site verification, general anesthesia was induced. The abdomen and right leg were prepped with ChloraPrep. Time-out was performed. An incision was then made through the old scar and in the right lower abdominal wall over the axillo femoral bypass graft. Cautery was used for hemostasis. The graft was mobilized at the takeoff of the femoral femoral segment, and the proximal distal graft and femoral femoral graft were all encircled with vessel loops. An incision was then made on the medial thigh through the old scar. Subcutaneous tissues were divided, and the femoral tibial vein bypass was mobilized and secured with vessel loops. The patient was systemically heparinized. A longitudinal venotomy was made in the vein graft. A No. 3 Johnnie catheter was passed distally and withdrawn with removal of a small amount of thrombus. A catheter was placed into the vessel, and angiography was performed with the above noted findings. The catheter was left in the vein graft, and TPA 5 mg was slowly infused at 2.5 mg per hour while the surgical procedure continued. The leg was elevated, and an incision was made in the posterior calf over the short saphenous vein which had been mapped preoperatively with duplex imaging. The vein was mobilized from the distal calf proximally with ligation of side branches using silk ties. The vein was mobilized completely from its bed. It was ligated distally and incised and distended with heparin and papaverine solution during dissection. When adequate length of vein had been mobilized, it was clipped proximally and excised. It was distended and kept in cool heparin solution until needed. A tunnel was then created between the 2 leg incisions in the groin. This was marked with umbilical tape. The actual femoral graft was then occluded proximally and the femoral femoral graft occluded with vascular clamps. Incision was made in the axillo femoral graft just at the level of the takeoff of the femoral femoral graft. The vein graft was brought up in the reverse configuration and anastomosed to the side of the prosthetic graft using running 6-0 Prolene sutures. Back-bleeding from the bypass grafts and flushing was then checked before completing the anastomosis. The vein graft was then allowed to distend after removing the clamps from the other grafts. It was allowed to untwist and was marked. It was passed through the previously made tunnel with care not to twist it. The catheter was removed from the vein bypass in the leg, and the new segment was spatulated and anastomosed to the old bypass using running 6-0 Prolene sutures. Prior to completion of the suture line, the graft was allowed to flush. Suture line was completed, and all clamps were removed. Bleeding from the suture line was controlled with thrombin-soaked Gelfoam. Evaluation of the foot with hand-held Doppler revealed a good signal in the posterior tibial artery. The actual femoral graft was then cannulated with a micropuncture needle proximally, and angiography of the leg performed to visualize the outflow into the foot, which was excellent. Catheter was removed, and pressure applied until bleeding ceased. All wounds were then closed with interrupted suture of 3-0 Vicryl and levy. Sterile dressings were applied, and the patient was taken to the recovery room in stable condition. José SIERRA/[id number]
--- NOTE | 2018-10-03 14:58 | PN ---
Progress Note, Physician Chief Complaint: AWAKE ALERT FEELING BETTER EVENTS AND NOTES REVIEWED - Current Medication List Current Medications: Active Medications Acetaminophen (Ofirmev Injection -) 1,000 mg IVPB Q6H PRN PRN Reason: PAIN LEVEL 1-3 Chlorhexidine Gluconate (Hibiclens For Decolonization -) 1 applic TP HS [facility] Last Admin: 10/02/18 21:29 Dose: 1 applic Docusate Sodium (Colace -) 100 mg PO DAILY [facility] Last Admin: 10/03/18 09:58 Dose: 100 mg Gabapentin (Neurontin -) 300 mg PO TID [facility] Last Admin: 10/03/18 13:59 Dose: 300 mg Heparin Sodium (Porcine) (Heparin -) 1,000 unit IVPUSH PRN PRN PRN Reason: Heparin Last Admin: 10/02/18 22:39 Dose: 1,000 unit Heparin Sodium (Porcine) (Heparin -) 5,000 unit IVPUSH PRN PRN PRN Reason: Heparin Heparin Sodium (Porcine) 25, (000 unit/ Sodium Chloride) 500 mls @ 20 mls/hr IV TITR [facility]; Protocol Last Admin: 10/03/18 06:08 Dose: 1,100 unit/hr, 22 mls/hr Mupirocin (Bactroban Ointment (For Decolonization) -) 1 applic NS BID [facility] Stop: 10/07/18 21:59 Last Admin: 10/03/18 09:58 Dose: 1 applic Ondansetron HCl (Zofran Injection) 4 mg IVPUSH Q6H PRN PRN Reason: NAUSEA AND/OR VOMITING Oxycodone HCl (Roxicodone -) 10 mg PO Q4H PRN PRN Reason: PAIN LEVEL 7-10 Last Admin: 10/03/18 10:56 Dose: 10 mg Oxycodone HCl (Roxicodone -) 5 mg PO Q4H PRN PRN Reason: PAIN LEVEL 4-6 Pantoprazole Sodium (Protonix Iv) 40 mg IVPUSH DAILY [facility] Last Admin: 10/03/18 09:57 Dose: 40 mg - Objective Vital Signs: Vital Signs Temperature 98.2 F 10/03/18 14:09 Pulse Rate 86 10/03/18 14:09 Respiratory Rate 18 10/03/18 14:09 Blood Pressure 111/66 10/03/18 14:09 O2 Sat by Pulse Oximetry (%) 100 10/03/18 09:00 Constitutional: Yes: Mild Distress Cardiovascular: Yes: Regular Rate and Rhythm Respiratory: Yes: WNL Gastrointestinal: Yes: WNL Genitourinary: Yes: Raymundo Present Musculoskeletal: Yes: Muscle Pain Extremities: Yes: Erythema Edema: No Integumentary: Yes: Erythema Wound/Incision: Yes: Dressing Dry and Intact Neurological: Yes: Pre-Existing Deficit ...Motor Strength: LLE, RLE Psychiatric: Yes: WNL Labs: CBC, BMP 10/03/18 05:30 10/03/18 05:30 INR, PTT INR 1.07 (0.83-1.09) 10/03/18 05:30 Problem List - Problems (1) Abnormal CT scan Code(s): R93.89 - ABNORMAL FINDINGS ON DX IMAGING OF OTH BODY STRUCTURES (2) Abnormal liver function Code(s): K76.89 - OTHER SPECIFIED DISEASES OF LIVER (3) Arterial occlusion Code(s): I70.90 - UNSPECIFIED ATHEROSCLEROSIS (4) Arterial occlusion, lower extremity Code(s): I70.209 - UNSP ATHSCL [place] ARTERIES OF EXTREMITIES, UNSP EXTREMITY (5) Thrombosis of aortic bifurcation bypass graft Code(s): T82.868A - THROMBOSIS DUE TO VASCULAR PROSTH DEV/GRFT, INIT Qualifiers: Encounter type: subsequent encounter Qualified Code(s): T82.868D - Thrombosis due to vascular prosthetic devices, implants and grafts, subsequent encounter Assessment/Plan IV HEPARIN FOR ARTERIAL OCCLUSION VASCULAR SX EVAL APPRECIATED LIPID PANEL CHECK STATIN THERAPY MONITOR LIVER FUNCTION NEEDS TO BE MONITORED FOR STATIN THERAPY, MAY NEED TO CHANGE TO OTHER TX. CARDIO EVAL
[2018-10-03] MEDS: CHLORHEXIDINE GLUCONATE 4% CLEANSER FOR DECOLONIZATION TP SCH (21:20)
[2018-10-03] MEDS ORDERED: HYDROmorphone HCl 2 MG/ML VIAL IVPUSH PRN (22:45)
[2018-10-04 06:08] LABS: HEMATOCRIT 30.9 % (35.4-49); HEMOGLOBIN 10.2 GM/dL (11.7-16.9); MCH 29.1 pg (25.7-33.7); MCHC 33.2 g/dl (32.0-35.9); MEAN CELL VOLUME 87.7 fl (80-96); MEAN PLT VOLUME 6.9 fl (7.5-11.1); PLATELET COUNT 380 K/MM3 (134-434); RBC 3.52 M/mm3 (4.00-5.60); RDW 17.7 % (11.9-15.9); WHITE BLOOD COUNT 10.1 K/mm3 (4.0-10.0)
[2018-10-04] MEDS: HEPARIN - 25,000 UNIT in SODIUM CHLORIDE 495 ML IV SCH (06:22)
[2018-10-04] MEDS: GABAPENTIN 300 MG CAPSULE (FP) PO SCH ×3 (06:24→22:15)
[2018-10-04] MEDS: oxyCODONE HCL 5 MG TABLET PO PRN ×2 (06:25→17:50)
--- NOTE | 2018-10-04 08:03 | PN ---
Progress Note (short form) - Note Progress Note: Pulm/CCM SUBJECTIVE: Patient seen and examined in the ICU. 24Hr: -no event -improved pain control -hgb down, but no overt bleeding -awaiting bed Vital Signs Temp 98.6 F 10/04/18 05:00 Pulse 83 10/04/18 07:00 Resp 20 10/03/18 20:19 BP 109/71 10/04/18 07:00 Pulse Ox 97 10/03/18 20:19 Intake & Output 10/03/18 10/03/18 10/04/18 11:59 23:59 11:59 Intake Total 578 952 397 Output Total 1300 1800 600 Balance -722 -848 -203 Weight 74.843 kg Intake: IV 378 352 157 Heparin - 25,000 Unit In 378 352 157 Normal Saline - 495 ml @ 1,000 UNIT/HR 20 mls/hr IV TITR [facility] Rx#: [id number] Oral 200 600 240 Output: Urine 1300 1800 600 Raymundo 1300 1800 Void 600 Other: Voiding Method Indwelling Catheter Indwelling Catheter # Unmeasured Voids Void 400 Bowel Movement No Height 5 ft 10 in Body Mass Index (BMI) 23.6 Current Medications Acetaminophen (Ofirmev Injection -) 1,000 mg IVPB Q6H PRN PRN Reason: PAIN LEVEL 1-3 Chlorhexidine Gluconate (Hibiclens For Decolonization -) 1 applic TP HS [facility] Last Admin: 10/03/18 21:20 Dose: 1 applic Docusate Sodium (Colace -) 100 mg PO DAILY [facility] Last Admin: 10/03/18 09:58 Dose: 100 mg Gabapentin (Neurontin -) 300 mg PO TID [facility] Last Admin: 10/04/18 06:24 Dose: 300 mg Heparin Sodium (Porcine) (Heparin -) 1,000 unit IVPUSH PRN PRN PRN Reason: Heparin Last Admin: 10/02/18 22:39 Dose: 1,000 unit Heparin Sodium (Porcine) (Heparin -) 5,000 unit IVPUSH PRN PRN PRN Reason: Heparin Heparin Sodium (Porcine) 25, (000 unit/ Sodium Chloride) 500 mls @ 20 mls/hr IV TITR [facility]; Protocol Last Admin: 10/04/18 06:22 Dose: 1,100 unit/hr, 22 mls/hr Mupirocin (Bactroban Ointment (For Decolonization) -) 1 applic NS BID [facility] Stop: 10/07/18 21:59 Last Admin: 10/03/18 21:27 Dose: Not Given Ondansetron HCl (Zofran Injection) 4 mg IVPUSH Q6H PRN PRN Reason: NAUSEA AND/OR VOMITING Oxycodone HCl (Roxicodone -) 10 mg PO Q4H PRN PRN Reason: PAIN LEVEL 7-10 Last Admin: 10/04/18 06:25 Dose: 10 mg Oxycodone HCl (Roxicodone -) 5 mg PO Q4H PRN PRN Reason: PAIN LEVEL 4-6 Pantoprazole Sodium (Protonix Iv) 40 mg IVPUSH DAILY [facility] Last Admin: 10/03/18 09:57 Dose: 40 mg GENERAL: Awake, alert, and oriented, mildly uncomfortable; HEAD: Normal with no signs of trauma. EYES: sclera anicteric, conjunctiva clear. No lid lag. THROAT: oropharynx clear without exudates. Moist mucous membranes. poor dentition NECK: Normal range of motion, supple without lymphadenopathy, JVD, or masses. LUNGS: clear to auscultation bilaterally. No wheezes, and no crackles. No accessory muscle use. HEART: Regular rate and rhythm, normal S1 and S2 without murmur, rub or gallop. ABDOMEN: Soft, nontender, not distended, normoactive bowel sounds, no guarding, no rebound, no masses. No hepatomegaly or splenomegaly. MUSCULOSKELETAL: Normal range of motion at all joints. No bony deformities or tenderness. No CVA tenderness. UPPER EXTREMITIES: 2+ pulses, warm, well-perfused. No cyanosis. No clubbing. Cap refill <2 seconds. No peripheral edema. LOWER EXTREMITIES: diminished pulse, but warm, + doppler bilat NEUROLOGICAL: Non-focal, decreased sensation RLE but improved, otherwise non focal PSYCHIATRIC: WNL Laboratory Results - last 24 hr 10/02/18 10/04/18 10/04/18 13:00 05:30 05:30 WBC 10.1 H RBC 3.52 L Hgb 10.2 L Hct 30.9 L MCV 87.7 MCH 29.1 MCHC 33.2 RDW 17.7 H Plt Count 380 MPV 6.9 L PTT (Actin FS) 45.3 H Prostate Specific Ag 0.20 ASSESSMENT/PLAN: POD #3 Open thrombectomy Right femoral bypass/Angiogram/Angioplasty bypass and posterior tibial artery, requiring re-op now with improved perfusion Vasc Surgery following O2 as needed IV Heparin with close monitoring of PTT Pulse checks as per Vasc Surgery repeat Hgb in pm given drop Ok for med surg Tavares ACNP -
--- NOTE | 2018-10-04 09:39 | PN ---
Progress Note, Physician Chief Complaint: AWAKE ALERT C/O LEG PAIN - Current Medication List Current Medications: Active Medications Acetaminophen (Ofirmev Injection -) 1,000 mg IVPB Q6H PRN PRN Reason: PAIN LEVEL 1-3 Chlorhexidine Gluconate (Hibiclens For Decolonization -) 1 applic TP HS [facility] Last Admin: 10/03/18 21:20 Dose: 1 applic Docusate Sodium (Colace -) 100 mg PO DAILY [facility] Last Admin: 10/03/18 09:58 Dose: 100 mg Gabapentin (Neurontin -) 300 mg PO TID [facility] Last Admin: 10/04/18 06:24 Dose: 300 mg Heparin Sodium (Porcine) (Heparin -) 1,000 unit IVPUSH PRN PRN PRN Reason: Heparin Last Admin: 10/02/18 22:39 Dose: 1,000 unit Heparin Sodium (Porcine) (Heparin -) 5,000 unit IVPUSH PRN PRN PRN Reason: Heparin Heparin Sodium (Porcine) 25, (000 unit/ Sodium Chloride) 500 mls @ 20 mls/hr IV TITR [facility]; Protocol Last Admin: 10/04/18 06:22 Dose: 1,100 unit/hr, 22 mls/hr Mupirocin (Bactroban Ointment (For Decolonization) -) 1 applic NS BID [facility] Stop: 10/07/18 21:59 Last Admin: 10/03/18 21:27 Dose: Not Given Ondansetron HCl (Zofran Injection) 4 mg IVPUSH Q6H PRN PRN Reason: NAUSEA AND/OR VOMITING Oxycodone HCl (Roxicodone -) 10 mg PO Q4H PRN PRN Reason: PAIN LEVEL 7-10 Last Admin: 10/04/18 06:25 Dose: 10 mg Oxycodone HCl (Roxicodone -) 5 mg PO Q4H PRN PRN Reason: PAIN LEVEL 4-6 Pantoprazole Sodium (Protonix Iv) 40 mg IVPUSH DAILY [facility] Last Admin: 10/03/18 09:57 Dose: 40 mg - Objective Vital Signs: Vital Signs Temperature 98.6 F 10/04/18 05:00 Pulse Rate 98 H 10/04/18 08:00 Respiratory Rate 20 10/04/18 08:16 Blood Pressure 111/63 10/04/18 08:00 O2 Sat by Pulse Oximetry (%) 97 10/04/18 08:16 Constitutional: Yes: Mild Distress Eyes: Yes: WNL HENT: Yes: WNL Neck: Yes: WNL Cardiovascular: Yes: WNL Respiratory: Yes: WNL Gastrointestinal: Yes: WNL Genitourinary: Yes: WNL Musculoskeletal: Yes: Muscle Pain, Muscle Weakness Edema: Yes Edema: LLE: Trace, RLE: Trace Peripheral Pulses WNL: Yes Integumentary: Yes: Erythema Wound/Incision: Yes: Dressing Dry and Intact Neurological: Yes: Pre-Existing Deficit ...Motor Strength: LLE, RLE Psychiatric: Yes: WNL Labs: CBC, BMP 10/04/18 05:30 10/03/18 05:30 INR, PTT INR 1.07 (0.83-1.09) 10/03/18 05:30 Problem List - Problems (1) Abnormal CT scan Code(s): R93.89 - ABNORMAL FINDINGS ON DX IMAGING OF OTH BODY STRUCTURES (2) Abnormal liver function Code(s): K76.89 - OTHER SPECIFIED DISEASES OF LIVER (3) Arterial occlusion Code(s): I70.90 - UNSPECIFIED ATHEROSCLEROSIS (4) Arterial occlusion, lower extremity Code(s): I70.209 - UNSP ATHSCL [facility] ARTERIES OF EXTREMITIES, UNSP EXTREMITY (5) Thrombosis of aortic bifurcation bypass graft Code(s): T82.868A - THROMBOSIS DUE TO VASCULAR PROSTH DEV/GRFT, INIT Qualifiers: Encounter type: subsequent encounter Qualified Code(s): T82.868D - Thrombosis due to vascular prosthetic devices, implants and grafts, subsequent encounter Assessment/Plan IV HEPARIN FOR ARTERIAL OCCLUSION BRIDGE TO AC INCENTIVE SPIROMETRY PAIN CONTROL DILAUDID IV 1MG X 1 QHS VASCULAR SX EVAL APPRECIATED LIPID PANEL CHECK STATIN THERAPY MONITOR LIVER FUNCTION NEEDS TO BE MONITORED FOR STATIN THERAPY, MAY NEED TO CHANGE TO OTHER TX. CARDIO EVAL
[2018-10-04] MEDS: PANTOPRAZOLE SODIUM 40 MG VIAL IVPUSH SCH (10:02)
[2018-10-04] MEDS: DOCUSATE SODIUM 100 MG CAPSULE (FP) PO SCH (10:03)
[2018-10-04] MEDS: MUPIROCIN 2% TOPICAL OINTMENT FOR DECOLONIZATION NS SCH ×2 (10:09→22:11)
[2018-10-04] MEDS: HEPARIN NA (PORCINE) 5,000 UNITS/ML 1ML VIAL IVPUSH PRN (10:42)
[2018-10-04] MEDS: HYDROmorphone HCl 2 MG/ML VIAL IVPB PRN ×2 (13:41→22:12)
--- NOTE | 2018-10-04 13:55 | PN ---
Progress Note (short form) - Note Progress Note: POD 2 VSS Right foot warm, pulse intact Incisions clean and dry Stable Resume Lovenox OOB Transfer to floor
[2018-10-04] MEDS: ENOXAPARIN NA (PORCINE) 80 MG/0.8 ML DISP.SYRIN SQ SCH (17:41)
[2018-10-04] MEDS: CHLORHEXIDINE GLUCONATE 4% CLEANSER FOR DECOLONIZATION TP SCH (22:12)
[2018-10-05] MEDS: HYDROmorphone HCl 2 MG/ML VIAL IVPB PRN (05:56)
[2018-10-05 06:22] LABS: HEMATOCRIT 33.5 % (35.4-49); HEMOGLOBIN 11.3 GM/dL (11.7-16.9); MCH 29.4 pg (25.7-33.7); MCHC 33.7 g/dl (32.0-35.9); MEAN CELL VOLUME 87.1 fl (80-96); MEAN PLT VOLUME 6.7 fl (7.5-11.1); PLATELET COUNT 333 K/MM3 (134-434); RBC 3.85 M/mm3 (4.00-5.60); RDW 17.6 % (11.9-15.9); WHITE BLOOD COUNT 9.1 K/mm3 (4.0-10.0)
[2018-10-05] MEDS: GABAPENTIN 300 MG CAPSULE (FP) PO SCH ×3 (06:35→22:03)
[2018-10-05] MEDS: ENOXAPARIN NA (PORCINE) 80 MG/0.8 ML DISP.SYRIN SQ SCH ×2 (06:35→22:03)
--- NOTE | 2018-10-05 08:29 | PN ---
Progress Note (short form) - Note Progress Note: POD 4, s/p Open thrombectomy femoral bypass, Angioplasty bypass and posterior tibial artery. TPA administration. POD 3, s/p Bypass from axillary graft to tibial bypass graft w/ SVG. Pt seen and examined. Reports he is feeling "okay". No issues over the weekend. Has not been oob. Tolerating PO, voiding without issue. Pain controlled with current regimen. Denies cp/sob, n/v/d. Vital Signs Temp 97.8 F 10/05/18 06:00 Pulse 82 10/05/18 06:00 Resp 18 10/05/18 08:06 BP 103/66 10/05/18 06:00 Pulse Ox 97 10/05/18 08:14 Intake & Output 10/04/18 10/04/18 10/05/18 11:59 23:59 11:59 Intake Total 397 804 Output Total 600 1100 800 Balance -203 -296 -800 Intake: IV 157 234 Heparin - 25,000 Unit In 157 234 Normal Saline - 495 ml @ 1,000 UNIT/HR 20 mls/hr IV TITR [facility] Rx#: [id number] Oral 240 570 Output: Urine 600 1100 800 Void 600 1100 800 Other: Voiding Method Urinal Urinal Urinal CBC, BMP 10/05/18 05:30 10/03/18 05:30 Gen: awake, alert, nad. Resting comfortably in bed Resp: Unlabored on RA Groin: Dressings x 2 c/d/i, minimal surrounding ecchymosis, no palpable hematoma. Minimal edema surrounding dressings, thigh soft. Calf with kerlix c/d/ i, trace edema, calf soft to palpation. Foot warm, sensation diminished (stable from prior), no ulcerations on toes. Wiggles toes without issue. Vasc: PT signal appreciated via doppler A/P: 58 y/o M w/ PMHx hld, extensive vascular history, s/p aortobifemoral bypass in 2011, R femoral-tibial bypass in October 2017 on therapeutic lovenox, s/p multiple thrombectomies of bypass, s/p Right ilio-tibial bypass with non- reversed saphenous vein (04/08/18), s/p Open thrombectomy right leg bypass. Angiogram and angioplasty posterior tibial artery. Infusion TPA and NTG into foot on 06/25/18, re-occluded 06/28/18, s/p Right axillary-fem and fem-fem bypass (07/04), now POD 4, s/p Open thrombectomy femoral bypass, Angioplasty bypass and posterior tibial artery. TPA administration. POD 3, s/p Bypass from axillary graft to tibial bypass graft w/ SVG. Vitals, labs and exam stable -Continue Lovenox -OOB, PT order placed -Can be transferred to floor today d/w attendings Dr Stoner and Kris
[2018-10-05] MEDS: DOCUSATE SODIUM 100 MG CAPSULE (FP) PO SCH (09:31)
[2018-10-05] MEDS: PANTOPRAZOLE SODIUM 40 MG VIAL IVPUSH SCH (09:31)
[2018-10-05] MEDS: MUPIROCIN 2% TOPICAL OINTMENT FOR DECOLONIZATION NS SCH (10:42)
[2018-10-05] MEDS ORDERED: HYDROmorphone HCl 2 MG/ML VIAL IVPUSH ONE (11:09)
--- NOTE | 2018-10-05 11:41 | PN ---
Physical Exam: SUBJECTIVE: Patient seen this morning and complains of foot pain. unable to walk with PT. OBJECTIVE: Vital Signs Temperature 97.8 F 10/05/18 06:00 Pulse Rate 82 10/05/18 06:00 Respiratory Rate 18 10/05/18 08:06 Blood Pressure 103/66 10/05/18 06:00 O2 Sat by Pulse Oximetry (%) 97 10/05/18 08:14 GENERAL: The patient is awake, alert, and fully oriented, in no acute distress. HEAD: Normal with no signs of trauma. EYES: PERRL, extraocular movements ENT: moist mucous membranes. LUNGS: Breath sounds equal, clear to auscultation bilaterally HEART: Regular rate and rhythm, S1, S2 without murmur, rub or gallop. ABDOMEN: Soft, nontender, nondistended, normoactive bowel sounds, no guarding, EXTREMITIES: multiple scars up his LE, R foot warm to touch, pulses present, normal skin color SKIN: Warm, dry, normal turgor, no rashes or lesions noted Laboratory Results - last 24 hr 10/01/18 10/04/18 10/05/18 16:15 16:10 05:30 WBC 9.1 RBC 3.85 L Hgb 11.3 L Hct 33.5 L MCV 87.1 MCH 29.4 MCHC 33.7 RDW 17.6 H Plt Count 333 MPV 6.7 L PTT (Actin FS) 62.5 H Crossmatch See Detail 10/05/18 05:30 WBC RBC Hgb Hct MCV MCH MCHC RDW Plt Count MPV PTT (Actin FS) 33.3 Crossmatch Active Medications Acetaminophen (Ofirmev Injection -) 1,000 mg IVPB Q6H PRN PRN Reason: PAIN LEVEL 1-3 Chlorhexidine Gluconate (Hibiclens For Decolonization -) 1 applic TP HS [facility] Last Admin: 10/04/18 22:12 Dose: 1 applic Docusate Sodium (Colace -) 100 mg PO DAILY [facility] Last Admin: 10/05/18 09:31 Dose: 100 mg Enoxaparin Sodium (Lovenox -) 80 mg SQ Q12H [facility] Last Admin: 10/05/18 06:35 Dose: 80 mg Gabapentin (Neurontin -) 300 mg PO TID [facility] Last Admin: 10/05/18 06:35 Dose: 300 mg Hydromorphone HCl (Dilaudid Vial -) 1 mg IVPB Q8H PRN PRN Reason: PAIN LEVEL 7 - 10 Last Admin: 10/05/18 05:56 Dose: 1 mg Mupirocin (Bactroban Ointment (For Decolonization) -) 1 applic NS BID [facility] Stop: 10/07/18 21:59 Last Admin: 10/04/18 22:11 Dose: Not Given Ondansetron HCl (Zofran Injection) 4 mg IVPUSH Q6H PRN PRN Reason: NAUSEA AND/OR VOMITING Oxycodone HCl (Roxicodone -) 10 mg PO Q4H PRN PRN Reason: PAIN LEVEL 7-10 Last Admin: 10/04/18 17:50 Dose: 10 mg Oxycodone HCl (Roxicodone -) 5 mg PO Q4H PRN PRN Reason: PAIN LEVEL 4-6 Pantoprazole Sodium (Protonix Iv) 40 mg IVPUSH DAILY [facility] Last Admin: 10/05/18 09:31 Dose: 40 mg ASSESSMENT/PLAN: Patient is a 58 y/o male with a history of multiple vascular surgeries of LE who is here for thrombectomy of right femoral. Neuro - A&O x3 - vitals stable - continue gabapentin for neuropathy Cardio - continue atorvastatin 20 mg po hs Pulm - stable - continue incentive spirometry - 40 pack year history GI - px pantoprazole 40 po daily Renal - stable Heme - POD # 3 for open thrombectomy of R femoral bypass angiogram/angioplasty and clot removal after surgery - hx of numerous vascular surgeries - Lovenox 80 q12h - resume clopidogrel and aspirin, discussed with Vascular - dilaudid 1 mg q and Oxicodone for pain FEN - regular diet - continue work up with PT Dispo: can monitor on tele Tessy: [phone] Visit type - Emergency Visit Emergency Visit: No - New Patient This patient is new to me today: No - Critical Care Critical Care patient: Yes Total Critical Care Time (in minutes): 35 Critical Care Statement: The care of this patient involved high complexity decision making to prevent further life threatening deterioration of the patient 's condition and/or to evaluate & treat vital organ system(s) failure or risk of failure.
--- NOTE | 2018-10-05 11:42 | PN ---
Progress Note, Physician Chief Complaint: dressing removed patient is awake complaining of right LE pain says it feels sore - Current Medication List Current Medications: Active Medications Acetaminophen (Ofirmev Injection -) 1,000 mg IVPB Q6H PRN PRN Reason: PAIN LEVEL 1-3 Chlorhexidine Gluconate (Hibiclens For Decolonization -) 1 applic TP HS [facility] Last Admin: 10/04/18 22:12 Dose: 1 applic Docusate Sodium (Colace -) 100 mg PO DAILY [facility] Last Admin: 10/05/18 09:31 Dose: 100 mg Enoxaparin Sodium (Lovenox -) 80 mg SQ Q12H [facility] Last Admin: 10/05/18 06:35 Dose: 80 mg Gabapentin (Neurontin -) 300 mg PO TID [facility] Last Admin: 10/05/18 06:35 Dose: 300 mg Hydromorphone HCl (Dilaudid Vial -) 1 mg IVPB Q8H PRN PRN Reason: PAIN LEVEL 7 - 10 Last Admin: 10/05/18 05:56 Dose: 1 mg Mupirocin (Bactroban Ointment (For Decolonization) -) 1 applic NS BID [facility] Stop: 10/07/18 21:59 Last Admin: 10/04/18 22:11 Dose: Not Given Ondansetron HCl (Zofran Injection) 4 mg IVPUSH Q6H PRN PRN Reason: NAUSEA AND/OR VOMITING Oxycodone HCl (Roxicodone -) 10 mg PO Q4H PRN PRN Reason: PAIN LEVEL 7-10 Last Admin: 10/04/18 17:50 Dose: 10 mg Oxycodone HCl (Roxicodone -) 5 mg PO Q4H PRN PRN Reason: PAIN LEVEL 4-6 Pantoprazole Sodium (Protonix Iv) 40 mg IVPUSH DAILY [facility] Last Admin: 10/05/18 09:31 Dose: 40 mg - Objective Vital Signs: Vital Signs Temperature 97.8 F 10/05/18 06:00 Pulse Rate 82 10/05/18 06:00 Respiratory Rate 18 10/05/18 08:06 Blood Pressure 103/66 10/05/18 06:00 O2 Sat by Pulse Oximetry (%) 97 10/05/18 08:14 Constitutional: Yes: Calm Cardiovascular: Yes: Regular Rate and Rhythm, S1, S2 Respiratory: Yes: CTA Bilaterally Gastrointestinal: Yes: Normal Bowel Sounds, Soft Extremities: Yes: Other (right foot warm to touch toes pink posterior calf levy clean) Edema: No Neurological: Yes: Alert, Oriented Labs: CBC, BMP 10/05/18 05:30 10/03/18 05:30 INR, PTT INR 1.07 (0.83-1.09) 10/03/18 05:30 Problem List - Problems (1) Cold right foot Assessment/Plan: Bypass from axillary graft to tibial bypass graft. Angiogram right leg. POD day 3 iv lovenox transfer to med surg floor Code(s): R20.9 - UNSPECIFIED DISTURBANCES OF SKIN SENSATION (2) HLD (hyperlipidemia) Assessment/Plan: lipitor monitor lft lipid panel Code(s): E78.5 - HYPERLIPIDEMIA, UNSPECIFIED Qualifiers: Hyperlipidemia type: pure hypercholesterolemia Qualified Code(s): E78.00 - Pure hypercholesterolemia, unspecified; E78.0 - Pure hypercholesterolemia (3) Neuropathic pain of foot Assessment/Plan: neurotin tid Code(s): G57.90 - UNSPECIFIED MONONEUROPATHY OF UNSPECIFIED LOWER LIMB
--- NOTE | 2018-10-05 12:07 | PN ---
Teaching Attending Note Name of Resident: Karishma Ortiz ATTENDING PHYSICIAN STATEMENT I saw and evaluated the patient. I reviewed the resident's note and discussed the case with the resident. I agree with the resident's findings and plan as documented. SUBJECTIVE: Patient seen and examined in the ICU. Awake and alert. Some increasing pain in both LE. No CP or SOB. Intake & Output 10/02/18 10/03/18 10/04/18 10/05/18 23:59 23:59 23:59 23:59 Intake Total 800 1530 1201 Output Total 2475 3100 1700 800 Balance -1675 -1570 -499 -800 Weight 165 lb 165 lb Last Vital Signs Temp Pulse Resp BP Pulse Ox 97.8 F 82 18 103/66 97 10/05/18 06:00 10/05/18 06:00 10/05/18 08:06 10/05/18 06:00 10/05/18 08:14 Active Medications Acetaminophen (Ofirmev Injection -) 1,000 mg IVPB Q6H PRN PRN Reason: PAIN LEVEL 1-3 Chlorhexidine Gluconate (Hibiclens For Decolonization -) 1 applic TP HS [facility] Last Admin: 10/04/18 22:12 Dose: 1 applic Docusate Sodium (Colace -) 100 mg PO DAILY [facility] Last Admin: 10/05/18 09:31 Dose: 100 mg Enoxaparin Sodium (Lovenox -) 80 mg SQ Q12H [facility] Last Admin: 10/05/18 06:35 Dose: 80 mg Gabapentin (Neurontin -) 300 mg PO TID [facility] Last Admin: 10/05/18 06:35 Dose: 300 mg Hydromorphone HCl (Dilaudid Vial -) 1 mg IVPB Q8H PRN PRN Reason: PAIN LEVEL 7 - 10 Last Admin: 10/05/18 05:56 Dose: 1 mg Mupirocin (Bactroban Ointment (For Decolonization) -) 1 applic NS BID [facility] Stop: 10/07/18 21:59 Last Admin: 10/04/18 22:11 Dose: Not Given Ondansetron HCl (Zofran Injection) 4 mg IVPUSH Q6H PRN PRN Reason: NAUSEA AND/OR VOMITING Oxycodone HCl (Roxicodone -) 10 mg PO Q4H PRN PRN Reason: PAIN LEVEL 7-10 Last Admin: 10/04/18 17:50 Dose: 10 mg Oxycodone HCl (Roxicodone -) 5 mg PO Q4H PRN PRN Reason: PAIN LEVEL 4-6 Pantoprazole Sodium (Protonix -) 40 mg PO DAILY [facility] GENERAL: Awake, alert, and oriented, mildly uncomfortable; HEAD: Normal with no signs of trauma. EYES: sclera anicteric, conjunctiva clear. No lid lag. THROAT: oropharynx clear without exudates. Moist mucous membranes. poor dentition NECK: Normal range of motion, supple without lymphadenopathy, JVD, or masses. LUNGS: clear to auscultation bilaterally. No wheezes, and no crackles. No accessory muscle use. HEART: Regular rate and rhythm, normal S1 and S2 without murmur, rub or gallop. ABDOMEN: Soft, nontender, not distended, normoactive bowel sounds, no guarding, no rebound, no masses. No hepatomegaly or splenomegaly. MUSCULOSKELETAL: Normal range of motion at all joints. No bony deformities or tenderness. No CVA tenderness. UPPER EXTREMITIES: 2+ pulses, warm, well-perfused. No cyanosis. No clubbing. Cap refill <2 seconds. No peripheral edema. LOWER EXTREMITIES: (+) PP NEUROLOGICAL: Non-focal PSYCHIATRIC: Cooperative. Good eye contact. Appropriate mood and affect. ASSESSMENT/PLAN: S/P Open thrombectomy Right femoral bypass/Angiogram/Angioplasty bypass and posterior tibial artery Severe peripheral arterial disease S/P Thrombosed graft right leg, ischemic leg S/P Bypass from axillary graft to tibial bypass graft. Angiogram right leg. [place] short saphenous vein AC O2 as needed D/W Vascular about initiated anti-platelet agents Pain control PO as tolerated Incentive Spirometry Floor Dr Felipe
[2018-10-05] MEDS: ASPIRIN 81 MG CHEWABLE TABLETS PO SCH (13:15)
[2018-10-05] MEDS: CLOPIDOGREL BISULFATE 75 MG TABLET (FP) PO SCH (13:20)
[2018-10-05] MEDS ORDERED: ACETAMINOPHEN 1000 MG/100 ML VIAL (NON FORMULARY) IVPB PRN (14:24)
[2018-10-05] MEDS ORDERED: HEPARIN NA (PORCINE) 5,000 UNITS/ML 1ML VIAL IVPUSH PRN ×2 (14:24)
[2018-10-05] MEDS ORDERED: ONDANSETRON 4 MG/2 ML VIAL IVPUSH PRN (14:24)
[2018-10-05] MEDS ORDERED: oxyCODONE HCL 5 MG TABLET PO PRN (14:24)
[2018-10-05] MEDS ORDERED: HYDROmorphone HCl 2 MG/ML VIAL IVPB PRN (14:24)
[2018-10-05] MEDS ORDERED: HYDROmorphone HCl 2 MG/ML VIAL IVPB ONE (16:33)
[2018-10-05] MEDS: oxyCODONE HCL 5 MG TABLET PO PRN (20:12)
[2018-10-05] MEDS ORDERED: MUPIROCIN 2% TOPICAL OINTMENT FOR DECOLONIZATION NS SCH (22:00)
[2018-10-05] MEDS ORDERED: CHLORHEXIDINE GLUCONATE 4% CLEANSER FOR DECOLONIZATION TP SCH (22:00)
[2018-10-06] MEDS: oxyCODONE HCL 5 MG TABLET PO PRN ×4 (00:56→16:59)
[2018-10-06] MEDS: GABAPENTIN 300 MG CAPSULE (FP) PO SCH ×3 (05:09→21:01)
[2018-10-06] MEDS ORDERED: HYDROmorphone HCl 2 MG/ML VIAL IVPUSH PRN (07:37)
[2018-10-06 07:56] LABS: HEMATOCRIT 34.3 % (35.4-49); HEMOGLOBIN 11.6 GM/dL (11.7-16.9); MCH 29.1 pg (25.7-33.7); MCHC 33.7 g/dl (32.0-35.9); MEAN CELL VOLUME 86.5 fl (80-96); PLATELET COUNT 389 K/MM3 (134-434); RBC 3.97 M/mm3 (4.00-5.60); RDW 17.9 % (11.9-15.9)
[2018-10-06 08:20] LABS: ALBUMIN 2.8 g/dl (3.4-5.0); ALK PHOS 155 U/L (45-117); ANION GAP 7 MMOL/L (8-16); BILIRUBIN,TOTAL 0.4 mg/dL (0.2-1); BLOOD UREA NITROGEN 18 mg/dL (7-18); CALCIUM 9.3 mg/dL (8.5-10.1); CHLORIDE 98 mmol/L (98-107); CO2 28 mmol/L (21-32); CREATININE 0.9 mg/dL (0.55-1.3); GLUCOSE,RANDOM 96 mg/dL (74-106); MAGNESIUM 2.2 mg/dL (1.8-2.4); PHOSPHOROUS 4.1 mg/dL (2.5-4.9); POTASSIUM 4.3 mmol/L (3.5-5.1); SGOT/AST 21 U/L (15-37); SGPT/ALT 60 U/L (13-61); SODIUM 133 mmol/L (136-145); TOT PROT 6.9 g/dl (6.4-8.2)
--- NOTE | 2018-10-06 08:39 | PN ---
Progress Note (short form) - Note Progress Note: POD 5, s/p Open thrombectomy femoral bypass, Angioplasty bypass and posterior tibial artery. TPA administration. POD 4, s/p Bypass from axillary graft to tibial bypass graft w/ SVG. Pt seen and examined. Reports he was unable to do PT yesterday due to significant pain. Requesting some IV meds to be available as needed for PT. Tolerating PO, voiding without issue. Voiding without issue. Denies cp/sob, n/v/ d. Vital Signs Temp 98.0 F 10/06/18 05:56 Pulse 85 10/06/18 05:56 Resp 18 10/06/18 05:56 BP 111/64 10/06/18 05:56 Pulse Ox 97 10/05/18 21:00 Intake & Output 10/05/18 10/05/18 10/06/18 11:59 23:59 11:59 Intake Total 820 0 Output Total 800 1800 Balance -800 -980 0 Intake: IV 0 0 Saline Lock 0 Sline Lock 0 0 IVPB 40 Oral 780 Output: Urine 800 1800 Void 800 1800 Other: Voiding Method Urinal Urinal Bowel Movement No CBC, BMP 10/06/18 06:45 10/06/18 06:45 Gen: awake, alert, nad. Resting comfortably in bed Resp: Unlabored on RA Groin: Dressings x with minimal serosanguinous drainage, dressings changed incisions c/d/i no erythema or drainage. + palpable hematoma at medial aspect of incisions. Thigh soft. Calf with kerlix c/d/i, trace edema, calf soft to palpation. Foot warm, sensation diminished (stable from prior), no ulcerations on toes. Wiggles toes without issue. Cap refill brisk, foot warm. L calf with significant posterior (old) ecchymosis. Vasc: PT signal appreciated via doppler A/P: 58 y/o M w/ PMHx hld, extensive vascular history, s/p aortobifemoral bypass in 2011, R femoral-tibial bypass in October 2017 on therapeutic lovenox, s/p multiple thrombectomies of bypass, s/p Right ilio-tibial bypass with non- reversed saphenous vein (04/08/18), s/p Open thrombectomy right leg bypass. Angiogram and angioplasty posterior tibial artery. Infusion TPA and NTG into foot on 06/25/18, re-occluded 06/28/18, s/p Right axillary-fem and fem-fem bypass (07/04), now POD 5, s/p Open thrombectomy femoral bypass, Angioplasty bypass and posterior tibial artery. TPA administration. POD 4, s/p Bypass from axillary graft to tibial bypass graft w/ SVG. Vitals, labs and exam stable -IV Dilaudid 1mg prn ordered for BTP and PT -Continue Lovenox, ASA, Plavix -OOB, PT -Remainder of care per primary team d/w attending Dr Ponce
[2018-10-06] MEDS: ASPIRIN 81 MG CHEWABLE TABLETS PO SCH (09:57)
[2018-10-06] MEDS: ENOXAPARIN NA (PORCINE) 80 MG/0.8 ML DISP.SYRIN SQ SCH ×2 (09:57→21:01)
[2018-10-06] MEDS: CLOPIDOGREL BISULFATE 75 MG TABLET (FP) PO SCH (09:57)
[2018-10-06] MEDS: DOCUSATE SODIUM 100 MG CAPSULE (FP) PO SCH (09:57)
[2018-10-06] MEDS: PANTOPRAZOLE 40 MG TABLET (FP) PO SCH (09:58)
[2018-10-06] MEDS: POLYETHYLENE GLYCOL 3350 119 GM BTL PO SCH (09:58)
--- NOTE | 2018-10-06 11:25 | PN ---
Progress Note, Physician Chief Complaint: Thrombosed graft right leg, ischemic leg History of Present Illness: POD 5, s/p Open thrombectomy femoral bypass, Angioplasty bypass and posterior tibial artery. TPA administration. POD 4, s/p Bypass from axillary graft to tibial bypass graft w/ SVG. Operative Date: 10/02/18 Pre-Operative Diagnosis: Thrombosed graft right leg, ischemic leg Operation: Bypass from axillary graft to tibial bypass graft. Angiogram right leg. [place] short saphenous vein Findings: Occlusion of axillo-femoral distal to fem-fem crossover limb. Patent fem-tibial bypass and HYDROPONICS GROWER to foot. Post-Operative Diagnosis: Same as Pre-op Surgeon: Carlos Stoner Rn Case Mgr: Leah Robertson C/O pain in RLE, receiving oxycodone-mildly effective. Was unable to do PT yesterday due to pain. - Current Medication List Current Medications: Active Medications Acetaminophen (Ofirmev Injection -) 1,000 mg IVPB Q6H PRN PRN Reason: PAIN LEVEL 1-3 Aspirin (Asa -) 81 mg PO DAILY [facility] Last Admin: 10/06/18 09:57 Dose: 81 mg Clopidogrel Bisulfate (Plavix -) 75 mg PO DAILY [facility] Last Admin: 10/06/18 09:57 Dose: 75 mg Docusate Sodium (Colace -) 100 mg PO DAILY [facility] Last Admin: 10/06/18 09:57 Dose: 100 mg Enoxaparin Sodium (Lovenox -) 80 mg SQ BID [facility] Last Admin: 10/06/18 09:57 Dose: 80 mg Gabapentin (Neurontin -) 300 mg PO TID [facility] Last Admin: 10/06/18 05:09 Dose: 300 mg Hydromorphone HCl (Dilaudid Vial -) 1 mg IVPUSH Q6H PRN PRN Reason: PAIN LEVEL 7 - 10 Ondansetron HCl (Zofran Injection) 4 mg IVPUSH Q6H PRN PRN Reason: NAUSEA AND/OR VOMITING Oxycodone HCl (Roxicodone -) 10 mg PO Q4H PRN PRN Reason: PAIN LEVEL 7-10 Last Admin: 10/06/18 09:51 Dose: 10 mg Oxycodone HCl (Roxicodone -) 5 mg PO Q4H PRN PRN Reason: PAIN LEVEL 4-6 Pantoprazole Sodium (Protonix -) 40 mg PO DAILY [facility] Last Admin: 10/06/18 09:58 Dose: 40 mg Polyethylene Glycol (Miralax (For Daily Use) -) 17 gm PO DAILY [facility] Last Admin: 10/06/18 09:58 Dose: 17 grams - Objective Vital Signs: Vital Signs Temperature 98.0 F 10/06/18 05:56 Pulse Rate 85 10/06/18 05:56 Respiratory Rate 18 10/06/18 05:56 Blood Pressure 111/64 10/06/18 05:56 O2 Sat by Pulse Oximetry (%) 97 10/05/18 21:00 Constitutional: Yes: Well Nourished, No Distress, Calm Cardiovascular: Yes: Regular Rate and Rhythm Respiratory: Yes: Regular Gastrointestinal: Yes: Normal Bowel Sounds, Soft Musculoskeletal: Yes: Muscle Weakness Extremities: Yes: WNL Edema: No Peripheral Pulses WNL: Yes Wound/Incision: Yes: Dressing Dry and Intact Neurological: Yes: Alert, Oriented Psychiatric: Yes: Alert, Oriented Labs: CBC, BMP 10/06/18 06:45 10/06/18 06:45 INR, PTT INR 1.07 (0.83-1.09) 10/03/18 05:30 Problem List - Problems (1) Ischemic leg Assessment/Plan: -Tylenol 650 mg po Q4H PRN for pain 1-3 -Oxycodone 10 mg po Q4H PRN for pain 4-6 -Dilaudid 1 mg Q6H PRN for pain 7-10 -Physical therapy -Seen by Surgical team -On AC Lovenox 80 mg BID -d/c tomorrow if cleared by Vascular surgery Code(s): I99.8 - OTHER DISORDER OF CIRCULATORY SYSTEM Assessment/Plan see problem list
[2018-10-06] MEDS: HYDROmorphone HCl 2 MG/ML VIAL IVPUSH PRN ×2 (13:56→21:01)
[2018-10-06] MEDS: ACETAMINOPHEN 325 MG TABLET (FP) PO PRN (17:02)
[2018-10-07] MEDS: oxyCODONE HCL 5 MG TABLET PO PRN ×5 (00:29→23:59)
[2018-10-07] MEDS: ACETAMINOPHEN 325 MG TABLET (FP) PO PRN ×5 (00:30→23:05)
[2018-10-07] MEDS: HYDROmorphone HCl 2 MG/ML VIAL IVPUSH PRN ×3 (04:05→20:39)
[2018-10-07] MEDS: GABAPENTIN 300 MG CAPSULE (FP) PO SCH ×3 (06:08→21:53)
[2018-10-07 07:09] LABS: HEMATOCRIT 33.4 % (35.4-49); HEMOGLOBIN 11.1 GM/dL (11.7-16.9); MCH 29.2 pg (25.7-33.7); MCHC 33.3 g/dl (32.0-35.9); MEAN CELL VOLUME 87.6 fl (80-96); MEAN PLT VOLUME 7.1 fl (7.5-11.1); PLATELET COUNT 367 K/MM3 (134-434); RBC 3.82 M/mm3 (4.00-5.60); RDW 17.8 % (11.9-15.9); WHITE BLOOD COUNT 6.7 K/mm3 (4.0-10.0)
[2018-10-07] MEDS: CLOPIDOGREL BISULFATE 75 MG TABLET (FP) PO SCH (09:27)
[2018-10-07] MEDS: ENOXAPARIN NA (PORCINE) 80 MG/0.8 ML DISP.SYRIN SQ SCH ×2 (09:27→21:53)
[2018-10-07] MEDS: DOCUSATE SODIUM 100 MG CAPSULE (FP) PO SCH (09:27)
[2018-10-07] MEDS: PANTOPRAZOLE 40 MG TABLET (FP) PO SCH (09:27)
[2018-10-07] MEDS: ASPIRIN 81 MG CHEWABLE TABLETS PO SCH (09:27)
[2018-10-07] MEDS: POLYETHYLENE GLYCOL 3350 119 GM BTL PO SCH (09:28)
--- NOTE | 2018-10-07 10:30 | PN ---
Progress Note (short form) - Note Progress Note: POD 6, s/p Open thrombectomy femoral bypass, Angioplasty bypass and posterior tibial artery. TPA administration. POD 5, s/p Bypass from axillary graft to tibial bypass graft w/ SVG. Pt seen and examined. Reports he was able to do PT yesterday although still complaining of significant pain with ambulating. Tolerating PO, voiding without issue. Voiding without issue. Denies cp/sob, n/v/d. Last Vital Signs Temp Pulse Resp BP Pulse Ox 97.5 F L 81 18 107/68 95 10/07/18 09:54 10/07/18 09:54 10/07/18 09:54 10/07/18 09:54 10/07/18 09:00 CBC, BMP 10/07/18 05:30 10/06/18 06:45 Gen: awake, alert, nad. Resting comfortably in bed Resp: Unlabored on RA Groin: Dressings x with minimal serosanguinous drainage, dressings changed incisions c/d/i no erythema or drainage. + palpable hematoma at medial aspect of incisions. Thigh soft. Calf with kerlix c/d/i, trace edema, calf soft to palpation. Foot warm, sensation diminished (stable from prior), no ulcerations on toes. Wiggles toes without issue. Cap refill brisk, foot warm. L calf with significant posterior (old) ecchymosis. Problem List - Problems (1) Ischemic leg Assessment/Plan: Plan -pt appears to be doing well, continue working with PT -encourage OOB/ambulate -pain management Code(s): I99.8 - OTHER DISORDER OF CIRCULATORY SYSTEM
--- NOTE | 2018-10-07 11:31 | PN ---
Progress Note, Physician Chief Complaint: Thrombosed graft right leg, ischemic leg History of Present Illness: POD 5, s/p Open thrombectomy femoral bypass, Angioplasty bypass and posterior tibial artery. TPA administration. POD 4, s/p Bypass from axillary graft to tibial bypass graft w/ SVG. Operative Date: 10/02/18 Pre-Operative Diagnosis: Thrombosed graft right leg, ischemic leg Operation: Bypass from axillary graft to tibial bypass graft. Angiogram right leg. [place] short saphenous vein Findings: Occlusion of axillo-femoral distal to fem-fem crossover limb. Patent fem-tibial bypass and DISH CARRIER to foot. Post-Operative Diagnosis: Same as Pre-op Surgeon: Carlos Stoner Wheel And Axle Inspector: Leah Robertson C/O pain in RLE, receiving oxycodone+dilaudid+ tylenol prn pain better controlled was able to walk with PT - Current Medication List Current Medications: Active Medications Acetaminophen (Tylenol -) 650 mg PO Q4H PRN PRN Reason: PAIN LEVEL 1 - 3 Last Admin: 10/07/18 07:49 Dose: 650 mg Aspirin (Asa -) 81 mg PO DAILY [facility] Last Admin: 10/07/18 09:27 Dose: 81 mg Clopidogrel Bisulfate (Plavix -) 75 mg PO DAILY [facility] Last Admin: 10/07/18 09:27 Dose: 75 mg Docusate Sodium (Colace -) 100 mg PO DAILY [facility] Last Admin: 10/07/18 09:27 Dose: 100 mg Enoxaparin Sodium (Lovenox -) 80 mg SQ BID [facility] Last Admin: 10/07/18 09:27 Dose: 80 mg Gabapentin (Neurontin -) 300 mg PO TID [facility] Last Admin: 10/07/18 06:08 Dose: 300 mg Hydromorphone HCl (Dilaudid Vial -) 1 mg IVPUSH Q6H PRN PRN Reason: PAIN LEVEL 7 - 10 Last Admin: 10/07/18 04:05 Dose: 1 mg Ondansetron HCl (Zofran Injection) 4 mg IVPUSH Q6H PRN PRN Reason: NAUSEA AND/OR VOMITING Oxycodone HCl (Roxicodone -) 10 mg PO Q4H PRN PRN Reason: PAIN LEVEL 4 - 6 Last Admin: 10/07/18 07:48 Dose: 10 mg Pantoprazole Sodium (Protonix -) 40 mg PO DAILY [facility] Last Admin: 10/07/18 09:27 Dose: 40 mg Polyethylene Glycol (Miralax (For Daily Use) -) 17 gm PO DAILY [facility] Last Admin: 10/07/18 09:28 Dose: 17 grams - Objective Vital Signs: Vital Signs Temperature 97.5 F L 10/07/18 09:54 Pulse Rate 81 10/07/18 09:54 Respiratory Rate 18 10/07/18 09:54 Blood Pressure 107/68 10/07/18 09:54 O2 Sat by Pulse Oximetry (%) 95 10/07/18 09:00 Constitutional: Yes: Well Nourished, No Distress, Calm Cardiovascular: Yes: Regular Rate and Rhythm Respiratory: Yes: Regular Gastrointestinal: Yes: WNL Genitourinary: Yes: WNL Musculoskeletal: Yes: Other (RLE pain) Extremities: Yes: WNL Edema: No Peripheral Pulses WNL: Yes Wound/Incision: Yes: Dressing Dry and Intact Neurological: Yes: Alert, Oriented Psychiatric: Yes: Alert, Oriented Labs: CBC, BMP 10/07/18 05:30 10/06/18 06:45 INR, PTT INR 1.07 (0.83-1.09) 10/03/18 05:30 Problem List - Problems (1) Ischemic leg Assessment/Plan: -Tylenol 650 mg po Q4H PRN for pain 1-3 -Oxycodone 10 mg po Q4H PRN for pain 4-6 -Dilaudid 1 mg Q6H PRN for pain 7-10 -Physical therapy -Seen by Surgical team -On AC Lovenox 80 mg BID -d/c home in AM, refuses VNS services, will f/u with Vascular surgery o/p in 1 week Code(s): I99.8 - OTHER DISORDER OF CIRCULATORY SYSTEM Assessment/Plan see problem list
[2018-10-08] MEDS: GABAPENTIN 300 MG CAPSULE (FP) PO SCH ×2 (05:59→14:47)
[2018-10-08] MEDS: HYDROmorphone HCl 2 MG/ML VIAL IVPUSH PRN ×2 (06:24→16:34)
[2018-10-08 07:18] LABS: HEMATOCRIT 32.1 % (35.4-49); HEMOGLOBIN 10.7 GM/dL (11.7-16.9); MCH 29.3 pg (25.7-33.7); MCHC 33.4 g/dl (32.0-35.9); MEAN CELL VOLUME 87.5 fl (80-96); MEAN PLT VOLUME 6.8 fl (7.5-11.1); PLATELET COUNT 426 K/MM3 (134-434); RBC 3.67 M/mm3 (4.00-5.60); RDW 17.4 % (11.9-15.9); WHITE BLOOD COUNT 7.9 K/mm3 (4.0-10.0)
--- NOTE | 2018-10-08 09:19 | PN ---
Progress Note (short form) - Note Progress Note: POD 7, s/p Open thrombectomy femoral bypass, Angioplasty bypass and posterior tibial artery. TPA administration. POD 6, s/p Bypass from axillary graft to tibial bypass graft w/ SVG. Pt seen and examined. Reports improvement in pain and increased ability to work with PT with new pain regimen. Tolerating PO, voiding without issue. Had a BM 2 days ago. Denies cp/sob, n/v/d. Vital Signs Temp 97.9 F 10/08/18 06:00 Pulse 76 10/08/18 06:00 Resp 18 10/08/18 06:00 BP 110/64 10/08/18 06:00 Pulse Ox 97 10/07/18 21:00 Intake & Output 10/07/18 10/07/18 10/08/18 11:59 23:59 11:59 Intake Total 50 50 50 Output Total 850 Balance 50 -800 50 Weight 157 lb 14.4 oz Intake: IV 50 Sline Lock 50 IVPB 50 50 Output: Urine 850 Void 850 Other: Voiding Method Urinal Urinal Weight Measurement Method Chair Scale CBC, BMP 10/08/18 06:30 10/06/18 06:45 Gen: awake, alert, nad. Resting comfortably in bed Resp: Unlabored on RA Groin: Dressings x with minimal serosanguinous drainage, dressings changed incisions c/d/i no erythema or drainage. + palpable hematoma at medial aspect of incisions. Thigh soft. Calf with kerlix c/d/i, trace edema, calf soft to palpation. Foot warm, sensation diminished (stable from prior), no ulcerations on toes. Wiggles toes without issue. Cap refill brisk, foot warm. L calf with significant posterior (old) ecchymosis. R posterior calf incision c/d/i, erythema at distal aspect rescinding. A/P: 58 y/o M w/ PMHx hld, extensive vascular history, s/p aortobifemoral bypass in 2011, R femoral-tibial bypass in October 2017 on therapeutic lovenox, s/p multiple thrombectomies of bypass, s/p Right ilio-tibial bypass with non- reversed saphenous vein (04/08/18), s/p Open thrombectomy right leg bypass. Angiogram and angioplasty posterior tibial artery. Infusion TPA and NTG into foot on 06/25/18, re-occluded 06/28/18, s/p Right axillary-fem and fem-fem bypass (07/04), now POD 7, s/p Open thrombectomy femoral bypass, Angioplasty bypass and posterior tibial artery. TPA administration. POD 6, s/p Bypass from axillary graft to tibial bypass graft w/ SVG. Vitals and exam stable -Continue current pain regimen -OOB with PT -Continue Lovenox, ASA, Plavix -Remainder of care per primary team d/w attending Dr Ponce
[2018-10-08] MEDS: ASPIRIN 81 MG CHEWABLE TABLETS PO SCH (10:12)
[2018-10-08] MEDS: PANTOPRAZOLE 40 MG TABLET (FP) PO SCH (10:12)
[2018-10-08] MEDS: ENOXAPARIN NA (PORCINE) 80 MG/0.8 ML DISP.SYRIN SQ SCH (10:12)
[2018-10-08] MEDS: oxyCODONE HCL 5 MG TABLET PO PRN (10:13)
[2018-10-08] MEDS: DOCUSATE SODIUM 100 MG CAPSULE (FP) PO SCH (10:13)
[2018-10-08] MEDS: CLOPIDOGREL BISULFATE 75 MG TABLET (FP) PO SCH (10:13)
[2018-10-08] MEDS: POLYETHYLENE GLYCOL 3350 119 GM BTL PO SCH (10:13)
[2018-10-08] MEDS: ACETAMINOPHEN 325 MG TABLET (FP) PO PRN (10:14)
--- NOTE | 2018-10-08 11:42 | DS ---
Physical Examination Vital Signs: Vital Signs Temperature 97.9 F 10/08/18 06:00 Pulse Rate 76 10/08/18 06:00 Respiratory Rate 18 10/08/18 06:00 Blood Pressure 110/64 10/08/18 06:00 O2 Sat by Pulse Oximetry (%) 97 10/07/18 21:00 Findings/Remarks: Patient is a 58 y/o male with past medical history of PVD s/p multiple vascular surgeries on lower extremities with Dr. Stoner who presents to ER with complaints of RLE pain and R foot discoloration and decreased temperature. Patient states his R foot became cold and Dr Stoner advised patient come to hospital for angioplasty and thrombectomy of R femoral artery. Patient is POD #7 s/p open thrombectomy femoral bypass angioplasty bypass and posterior tibial artery. TPA administered. POD #6 s/p bypass from axillary graft to tibial bypass graft w/SVG. Constitutional: Yes: No Distress, Calm Eyes: Yes: Conjunctiva Clear HENT: Yes: Atraumatic Cardiovascular: Yes: Regular Rate and Rhythm Respiratory: Yes: Regular, CTA Bilaterally Gastrointestinal: Yes: Normal Bowel Sounds, Soft Musculoskeletal: Yes: Muscle Weakness Extremities: Yes: WNL Edema: No Wound/Incision: Yes: Dressing Dry and Intact Neurological: Yes: Alert, Oriented Psychiatric: Yes: Alert, Oriented Labs: CBC, BMP 10/08/18 06:30 10/06/18 06:45 Discharge Summary Reason For Visit: OCCLUSION OF ARTEY OF LOWER EXTEMITY Current Active Problems Ischemic leg (Acute) Hospital Course: see progress notes Laboratory Tests 10/01/18 10/01/18 10/01/18 16:15 16:15 16:15 WBC 11.5 H RBC 4.56 Hgb 13.2 Hct 40.1 MCV 88.0 MCH 29.0 MCHC 33.0 RDW 17.0 H Plt Count 483 H MPV 7.1 L Absolute Neuts (auto) 7.8 Neutrophils % 67.8 Lymphocytes % 22.5 Monocytes % 7.1 Eosinophils % 1.7 Basophils % 0.9 Nucleated RBC % 0 Platelet Estimate Increased Platelet Comment No clumping noted PT with INR 12.00 INR 1.02 PTT (Actin FS) 36.6 H Sodium 135 L Potassium 4.5 Chloride 103 Carbon Dioxide 27 Anion Gap 5 L BUN 22 H Creatinine 1.0 Creat Clearance w eGFR 76.48 Random Glucose 97 Calcium 9.3 Phosphorus Magnesium Total Bilirubin 0.3 AST 13 L ALT 20 Alkaline Phosphatase 88 Total Protein 7.6 Albumin 3.5 Prostate Specific Ag Blood Type Antibody Screen Crossmatch 10/01/18 10/02/18 10/02/18 16:15 00:20 05:30 WBC RBC Hgb Hct MCV MCH MCHC RDW Plt Count MPV Absolute Neuts (auto) Neutrophils % Lymphocytes % Monocytes % Eosinophils % Basophils % Nucleated RBC % Platelet Estimate Platelet Comment PT with INR INR PTT (Actin FS) Cancelled Sodium 139 Potassium 4.4 Chloride 106 Carbon Dioxide 26 Anion Gap 7 L BUN 17 Creatinine 0.7 Creat Clearance w eGFR 115.43 Random Glucose 97 Calcium 8.9 Phosphorus 3.7 Magnesium 1.9 Total Bilirubin 0.3 AST 46 H ALT 40 Alkaline Phosphatase 115 Total Protein 6.1 L Albumin 2.9 L Prostate Specific Ag Blood Type A POSITIVE Antibody Screen Negative Crossmatch See Detail 10/02/18 10/02/18 10/02/18 05:30 05:30 13:00 WBC RBC Hgb Hct MCV MCH MCHC RDW Plt Count MPV Absolute Neuts (auto) Neutrophils % Lymphocytes % Monocytes % Eosinophils % Basophils % Nucleated RBC % Platelet Estimate Platelet Comment PT with INR 12.20 INR 1.03 PTT (Actin FS) 33.0 Sodium Potassium Chloride Carbon Dioxide Anion Gap BUN Creatinine Creat Clearance w eGFR Random Glucose Calcium Phosphorus Magnesium Total Bilirubin AST ALT Alkaline Phosphatase Total Protein Albumin Prostate Specific Ag 0.20 Blood Type Antibody Screen Crossmatch 10/02/18 10/02/18 10/03/18 16:30 21:20 05:30 WBC 10.0 RBC 3.89 L Hgb 11.4 L Hct 34.2 L MCV 87.7 MCH 29.3 MCHC 33.4 RDW 17.6 H Plt Count 400 MPV 7.1 L Absolute Neuts (auto) 7.1 Neutrophils % 71.7 Lymphocytes % 20.2 Monocytes % 7.6 Eosinophils % 0.3 D Basophils % 0.2 Nucleated RBC % 0 Platelet Estimate Platelet Comment PT with INR INR PTT (Actin FS) 87.3 H 46.7 H Sodium Potassium Chloride Carbon Dioxide Anion Gap BUN Creatinine Creat Clearance w eGFR Random Glucose Calcium Phosphorus Magnesium Total Bilirubin AST ALT Alkaline Phosphatase Total Protein Albumin Prostate Specific Ag Blood Type Antibody Screen Crossmatch 10/03/18 10/03/18 10/03/18 05:30 05:30 05:30 WBC RBC Hgb Hct MCV MCH MCHC RDW Plt Count MPV Absolute Neuts (auto) Neutrophils % Lymphocytes % Monocytes % Eosinophils % Basophils % Nucleated RBC % Platelet Estimate Platelet Comment PT with INR 12.60 INR 1.07 PTT (Actin FS) 62.4 H Sodium 136 Potassium 4.4 Chloride 103 Carbon Dioxide 28 Anion Gap 6 L BUN 14 Creatinine 0.8 Creat Clearance w eGFR 98.94 Random Glucose 119 H Calcium 8.9 Phosphorus 4.1 Magnesium 1.9 Total Bilirubin 0.4 AST 55 H ALT 61 Alkaline Phosphatase 115 Total Protein 6.4 Albumin 2.9 L Prostate Specific Ag Blood Type Antibody Screen Crossmatch 10/04/18 10/04/18 10/04/18 05:30 05:30 16:10 WBC 10.1 H RBC 3.52 L Hgb 10.2 L Hct 30.9 L MCV 87.7 MCH 29.1 MCHC 33.2 RDW 17.7 H Plt Count 380 MPV 6.9 L Absolute Neuts (auto) Neutrophils % Lymphocytes % Monocytes % Eosinophils % Basophils % Nucleated RBC % Platelet Estimate Platelet Comment PT with INR INR PTT (Actin FS) 45.3 H 62.5 H Sodium Potassium Chloride Carbon Dioxide Anion Gap BUN Creatinine Creat Clearance w eGFR Random Glucose Calcium Phosphorus Magnesium Total Bilirubin AST ALT Alkaline Phosphatase Total Protein Albumin Prostate Specific Ag Blood Type Antibody Screen Crossmatch 10/05/18 10/05/18 10/06/18 05:30 05:30 06:45 WBC 9.1 9.0 RBC 3.85 L 3.97 L Hgb 11.3 L 11.6 L Hct 33.5 L 34.3 L MCV 87.1 86.5 MCH 29.4 29.1 MCHC 33.7 33.7 RDW 17.6 H 17.9 H Plt Count 333 389 MPV 6.7 L 7.0 L Absolute Neuts (auto) Neutrophils % Lymphocytes % Monocytes % Eosinophils % Basophils % Nucleated RBC % Platelet Estimate Platelet Comment PT with INR INR PTT (Actin FS) 33.3 Sodium Potassium Chloride Carbon Dioxide Anion Gap BUN Creatinine Creat Clearance w eGFR Random Glucose Calcium Phosphorus Magnesium Total Bilirubin AST ALT Alkaline Phosphatase Total Protein Albumin Prostate Specific Ag Blood Type Antibody Screen Crossmatch 10/06/18 10/06/18 10/07/18 06:45 06:45 05:30 WBC 6.7 RBC 3.82 L Hgb 11.1 L Hct 33.4 L MCV 87.6 MCH 29.2 MCHC 33.3 RDW 17.8 H Plt Count 367 MPV 7.1 L Absolute Neuts (auto) Neutrophils % Lymphocytes % Monocytes % Eosinophils % Basophils % Nucleated RBC % Platelet Estimate Platelet Comment PT with INR INR PTT (Actin FS) 38.5 H Sodium 133 L Potassium 4.3 Chloride 98 Carbon Dioxide 28 Anion Gap 7 L BUN 18 Creatinine 0.9 Creat Clearance w eGFR 86.37 Random Glucose 96 Calcium 9.3 Phosphorus 4.1 Magnesium 2.2 Total Bilirubin 0.4 AST 21 ALT 60 Alkaline Phosphatase 155 H Total Protein 6.9 Albumin 2.8 L Prostate Specific Ag Blood Type Antibody Screen Crossmatch 10/07/18 10/08/18 10/08/18 05:30 06:30 06:30 WBC 7.9 RBC 3.67 L Hgb 10.7 L Hct 32.1 L MCV 87.5 MCH 29.3 MCHC 33.4 RDW 17.4 H Plt Count 426 MPV 6.8 L Absolute Neuts (auto) Neutrophils % Lymphocytes % Monocytes % Eosinophils % Basophils % Nucleated RBC % Platelet Estimate Platelet Comment PT with INR INR PTT (Actin FS) 37.9 H 40.9 H Sodium Potassium Chloride Carbon Dioxide Anion Gap BUN Creatinine Creat Clearance w eGFR Random Glucose Calcium Phosphorus Magnesium Total Bilirubin AST ALT Alkaline Phosphatase Total Protein Albumin Prostate Specific Ag Blood Type Antibody Screen Crossmatch Active Medications Generic Name Dose Route Start Last Admin Trade Name Freq PRN Reason Stop Dose Admin Acetaminophen 650 mg 10/06/18 12:17 10/08/18 10:14 Tylenol - PO 650 mg Q4H PRN Administration PAIN LEVEL 1 - 3 Aspirin 81 mg 10/05/18 12:30 10/08/18 10:12 Asa - PO 81 mg DAILY GERALD Administration Clopidogrel Bisulfate 75 mg 10/05/18 12:30 10/08/18 10:13 Plavix - PO 75 mg DAILY GERALD Administration Docusate Sodium 100 mg 10/06/18 10:00 10/08/18 10:13 Colace - PO 100 mg DAILY GERALD Administration Enoxaparin Sodium 80 mg 10/05/18 22:00 10/08/18 10:12 Lovenox - SQ 80 mg BID GERALD Administration Gabapentin 300 mg 10/05/18 22:00 10/08/18 05:59 Neurontin - PO 300 mg TID GERALD Administration Hydromorphone HCl 1 mg 10/06/18 07:41 10/08/18 06:24 Dilaudid Vial - IVPUSH 1 mg Q6H PRN Administration PAIN LEVEL 7 - 10 Ondansetron HCl 4 mg 10/05/18 14:24 Zofran Injection IVPUSH Q6H PRN NAUSEA AND/OR VOMITING Oxycodone HCl 10 mg 10/06/18 12:18 10/08/18 10:13 Roxicodone - PO 10 mg Q4H PRN Administration PAIN LEVEL 4 - 6 Pantoprazole Sodium 40 mg 10/06/18 10:00 10/08/18 10:12 Protonix - PO 40 mg DAILY GERALD Administration Polyethylene Glycol 17 gm 10/06/18 10:00 10/08/18 10:13 Miralax (For Daily Use) - PO 17 grams DAILY GERALD Administration Condition: Stable - Instructions Diet, Activity, Other Instructions: Follow up with Vascular as scheduled follow up with pmd 1 week after discharge continue with medication as prescribed return to ER if severe pain, respiratory fdistress, chest pain Referrals: Carlos Stoner MD [Staff Physician] - Disposition: HOME - Home Medications Comprehensive Discharge Medication List: Ambulatory Orders Aspirin [ASA -] 81 mg PO DAILY #30 tab.chew 12/02/17 Simvastatin 20 mg PO HS 03/12/18 Acetaminophen 1 - 2 mg PO Q6H PRN 30 Days #240 tablet 07/04/18 Clopidogrel Bisulfate [Plavix -] 75 mg PO DAILY #30 tablet 07/04/18 Enoxaparin [Lovenox -] 80 mg SQ BID #60 disp.syrin 07/04/18 Gabapentin [Neurontin -] 300 mg PO TID #90 capsule 07/04/18 Pantoprazole Sodium [Protonix -] 40 mg PO DAILY #30 tablet.ec 07/04/18 Polyethylene Glycol 3350 [Miralax 119 gm Btl -] 17 gm PO TID bottle 07/04/18 Sennosides/Docusate Sodium [Pericolace -] 2 tablet PO BID #120 tablet 07/04/18 oxyCODONE HCL [Roxicodone -] 10 mg PO Q4H PRN #30 tablet MDD 6 07/04/18 Acetaminophen [Tylenol .Regular Strength -] 650 mg PO Q4H PRN #360 tablet Aspirin [ASA -] 81 mg PO DAILY tab.chew 10/07/18 Clopidogrel Bisulfate [Plavix -] 75 mg PO DAILY tablet 10/07/18 Enoxaparin [Lovenox -] 80 mg SQ BID #0 disp.syrin 10/07/18 Gabapentin [Neurontin -] 300 mg PO TID #0 capsule 10/07/18 Pantoprazole Sodium [Protonix -] 40 mg PO DAILY #0 tablet.ec 10/07/18 Polyethylene Glycol 3350 [Miralax 119 gm Btl -] 17 gm PO DAILY #0 bottle oxyCODONE HCL [Roxicodone -] 10 mg PO Q4H PRN #0 tablet MDD 12 10/07/18
[2018-10-08 14:21] VITALS: BP 112/73; PULSE 83; TEMP 97.3
== END 2018-10-08 18:16 | disposition home or self-care (01) | DRG 253 ==
LOC: JER 15:28 → JERBED 16:25 → JICU 22:29 → J7W 10-05 14:45
PROVIDERS: ADMIT Family Medicine; ATTEND Family Medicine
PROC: B40JYZZ Plain Radiography of Other Lower Arteries using Other Contrast (ICD-10-PCS; 2018-10-01)
PROC: 04CK0ZZ Extirpation of Matter from Right Femoral Artery, Open Approach (ICD-10-PCS; principal; 2018-10-01 20:00)
PROC: 047K0ZZ Dilation of Right Femoral Artery, Open Approach (ICD-10-PCS; 2018-10-01 20:00)
PROC: 041 Lower Arteries, Bypass (ICD-10-PCS; 2018-10-02)
PROC: 047 Lower Arteries, Dilation (ICD-10-PCS; 2018-10-02)
PROC: 05B80ZZ Excision of Left Axillary Vein, Open Approach (ICD-10-PCS; 2018-10-02)
PROC: 05B Upper Veins, Excision (ICD-10-PCS; 2018-10-02)
PROC: 061M09Y Bypass Right Femoral Vein to Lower Vein with Autologous Venous Tissue, Open Approach (ICD-10-PCS; 2018-10-02)
PROC: 3E05017 Introduction of Other Thrombolytic into Peripheral Artery, Open Approach (ICD-10-PCS; 2018-10-02)
DX: T82.868A Thrombosis due to vascular prosthetic devices, implants and grafts, initial encounter (principal); I74.3 Embolism and thrombosis of arteries of the lower extremities; I10 Essential (primary) hypertension; E78.5 Hyperlipidemia, unspecified; Z87.891 Personal history of nicotine dependence; I73.9 Peripheral vascular disease, unspecified; Y84.8 Other medical procedures as the cause of abnormal reaction of the patient, or of later complication, without mention of misadventure at the time of the procedure
CPT/HCPCS: 36415; 71045-TC-FY; 76000-TC-FY; 80053; 83735; 84100; 84153; 85025; 85027; 85610; 85730; 86850; 86900; 86901; 86922; 93005; 93010; 94760; 97116-GP; 97162-GP; 99281-25; J1644; J2997

== ENCOUNTER 2019-01-23 08:14 | Inpatient (IN) | payer BC ==
[2019-01-23 08:23] VITALS: BMI 23.6
--- NOTE | 2019-01-23 09:27 | PDOC ---
History of Present Illness - General Chief Complaint: Pain Stated Complaint: SENT BY PCP Time Seen by Provider: 01/23/19 09:21 History Source: Patient Exam Limitations: No Limitations - History of Present Illness Initial Comments: 01/23/19 10:17 58 y/o M w/ PMHx HLD, extensive vascular history, s/p aortobifemoral bypass in 2011, R femoral-tibial bypass in October 2017 on therapeutic lovenox and plavix, s/ p multiple thrombectomies of bypass, s/p Right ilio-tibial bypass with non- reversed saphenous vein (04/08/18), s/p Open thrombectomy right leg bypass. Angiogram and angioplasty posterior tibial artery. Infusion TPA and NTG into foot on 06/25/18, re-occluded 06/28/18, s/p Right axillary-fem and fem-fem bypass (07/04), s/p Open thrombectomy femoral bypass, Angioplasty bypass and posterior tibial artery with s/p Bypass from axillary graft to tibial bypass graft w/ SVG in 09/2018 and subsequently additional revascularization procedures at [facility] in December 2018, presenting with LLE claudication, baseline with chronic bilateral foot and toe numbness/tingling, usually takes gabapentin. Sent in by Dr Stoner for operative management of LLE occluded fem-fem bypass today. Denies fever, chills, chest pain, SOB, palpitation, dizziness, weakness, N, V, D , abdominal pain, bladder and bowel problems, leg swelling, No new changes in medications. Allergies: Penicillin Past Medical History: as documented in EMR/HPI Social history: Lives with family. former smoker Surgical history: extensive vascular history, s/p aortobifemoral bypass in 2011 , R femoral-tibial bypass in October 2017 on therapeutic lovenox and plavix, s/p multiple thrombectomies of bypass, s/p Right ilio-tibial bypass with non- reversed saphenous vein (04/08/18), s/p Open thrombectomy right leg bypass. Angiogram and angioplasty posterior tibial artery. Infusion TPA and NTG into foot on 06/25/18, re-occluded 06/28/18, s/p Right axillary-fem and fem-fem bypass (07/04), s/p Open thrombectomy femoral bypass, Angioplasty bypass and posterior tibial artery with s/p Bypass from axillary graft to tibial bypass graft w/ SVG in 09/2018 Meds: as documented in EMR - gabapentin, lovenox, plavix. PMD: Dr Lazaro Anand Vascular: Dr Stoner 01/23/19 10:19 01/23/19 10:20 Past History - Past Medical History Allergies/Adverse Reactions: Allergies Allergy/AdvReac Type Severity Reaction Status Date / Time Penicillins Allergy Verified 01/23/19 08:20 Home Medications: Ambulatory Orders Aspirin [ASA -] 81 mg PO DAILY #30 tab.chew 12/02/17 Simvastatin 20 mg PO HS 03/12/18 Clopidogrel Bisulfate [Plavix -] 75 mg PO DAILY tablet 10/07/18 Gabapentin [Neurontin -] 300 mg PO TID #0 capsule 10/07/18 Enoxaparin [Lovenox -] 100 mg SQ BID 01/23/19 Anemia: No Asthma: No Cancer: No Cardiac Disorders: No CVA: No COPD: No CHF: No DVT: Yes Dementia: No Diabetes: No GI Disorders: No Disorders: No HTN: Yes Hypercholesterolemia: Yes Kidney Stones: Yes Liver Disease: No Seizures: No Thyroid Disease: No Other medical history: peripheral vasvulsr disease - Surgical History Abdominal Surgery: No Appendectomy: No Cardiac Surgery: No Cholecystectomy: No Lung Surgery: No Neurologic Surgery: No Orthopedic Surgery: No - Suicide/Smoking/Psychosocial Hx Smoking Status: Yes Smoking History: Former smoker Have you smoked in the past 12 months: No Number of Cigarettes Smoked Daily: 0 If you are a former smoker, when did you quit?: more than one year ago Cigars Per Day: 5 Information on smoking cessation initiated: No 'Breaking Loose' booklet given: 03/13/18 Hx Alcohol Use: No Drug/Substance Use Hx: No Substance Use Type: None Hx Substance Use Treatment: No Review of Systems - Review of Systems Able to Perform ROS?: Yes Comments:: 01/23/19 09:26 Review of systems Constitutional: no fevers or chills. HEENT: no headache or dizziness. No congestion. No visual/hearing disturbances. CVS: no cp or syncope. Resp: no sob. No cough. Gastrointestinal: no abdominal pain, nausea or vomiting. Genitourinary: no urinary sx, hematuria. MUSCULOSKELETAL: No joint pain and swelling. No neck or back pain. +leg pain, + claudication SKIN: no redness or skin changes, no discharge, no rash. +healed wounds at surgical site. Hematologic: no easy bruising/bleeding. NEUROLOGIC: No headache, dizziness, LOC or altered mental status. No weakness, + numbness or tingling. Psych: no anxiety or depression Allergic/Immunologic: no allergies All other systems reviewed and negative, or as documented in HPI. 01/23/19 09:45 01/23/19 10:39 *Physical Exam - Vital Signs Last Vital Signs Temp Pulse Resp BP Pulse Ox 97.5 F L 96 H 18 138/79 99 01/23/19 08:15 01/23/19 08:15 01/23/19 08:15 01/23/19 08:15 01/23/19 08:15 - Physical Exam Comments: 01/23/19 09:27 Physical exam: General: Well appearing, awake and alert, NAD. HEENT: NCAT, PERRL, EOMI, clear conjunctiva, anicteric, poor dentition, clear oropharynx Neck: neck supple, FROM Resp: CTAB, normal and even respirations, no respiratory distress CVS: RRR, no murmurs, 1+ pedal pulses, no peripheral edema Abdomen: soft, NTND, no peritoneal signs. healing ecchymosis on abdomen from lovenox inj Back: nontender, normal inspection and ROM MSK: no edema, HOLM x4, ROM intact. No clubbing or cyanosis. normal bulk and tone. Neuro: alert, no focal neuro deficits. 5/5 plantar flexion, SILT in all extrem. Psych: calm and cooperative Skin: warm and well perfused, cap refill <2 sec, normal color; bilateral inguinal scars; healed scars along saphenous on right lower extrem. 01/23/19 09:45 01/23/19 09:47 Heart Score/ECG Review #1 ECG reviewed & interpreted by me at: 10:05 General ECG Interpretation: Sinus Rhythm, Normal Rate, Normal Intervals Compared to previous ECG there are: No significant change 01/23/19 10:23 EKG normal sinus rhythm at 78 bpm, no interval abnormalities, narrow QRS, ST and T wave segments and morphology normal. Nonspecific T wave abnormalities ED Treatment Course - LABORATORY CBC & Chemistry Diagram: 01/23/19 09:30 01/23/19 09:30 Medical Decision Making - Medical Decision Making 01/23/19 10:13 See HPI for details. Prior notes reviewed, including admissions, discharges and consultations. Vital signs reviewed, wnl. Vital Signs Temp Pulse Resp BP Pulse Ox 97.5 F L 96 H 18 138/79 99 01/23/19 08:15 01/23/19 08:15 01/23/19 08:15 01/23/19 08:15 01/23/19 08:15 laboratory results and imaging reviewed, basic labs and lytes wnl, baseline anemia. txs, coags sent for preop. EKG normal sinus rhythm at 78 bpm, no interval abnormalities, narrow QRS, ST and T wave segments and morphology normal. Nonspecific T wave abnormalities ED course -interventions: NPO, no analgesia needed, pt comfortable, no events in the ED> - consults and recommendations: Dr Stoner called, as planned for OR today. operative management of occluded left fem fem bypass at 12pm today. Admit for PVD - LLE fem fem bypass occlusion and medical/surgical management. Discussed results and management plan with pt and family member at bedside, agree with impression, treatment indications, recommendations and plan. s/o to [employer] DISP[employer] [place] regarding admission under Dr Cyr with vascular consult called. 01/23/19 10:14 01/23/19 10:21 01/23/19 10:23 01/23/19 10:39 *DC/Admit/Observation/Transfer Diagnosis at time of Disposition: PVD (peripheral vascular disease) with claudication - Discharge Dispostion Condition at time of disposition: Guarded Decision to Admit order: Yes Decision to Admit order Date/Time: 01/23/19 10:39 Vital Signs Temp Pulse Resp BP Pulse Ox 97.5 F L 96 H 18 138/79 99 01/23/19 08:15 01/23/19 08:15 01/23/19 08:15 01/23/19 08:15 01/23/19 08:15 Decision to Admit Order Category Date Time Status Decision to Admit to Hospital Routine Admission 01/23/19 10:35 Active - Referrals Referrals: Lazaro Anand MD [Primary Care Provider] - - Patient Instructions - Post Discharge Activity
[2019-01-23 09:54] LABS: BASO % 0.9 % (0-2.0); EOS % 2.9 % (0-4.5); HEMATOCRIT 40.4 % (35.4-49); HEMOGLOBIN 13.7 GM/dL (11.7-16.9); LYMPH % 19.3 % (8-40); MCH 29.4 pg (25.7-33.7); MEAN CELL VOLUME 86.5 fl (80-96); MEAN PLT VOLUME 7.3 fl (7.5-11.1); MONO % 7.3 % (3.8-10.2); NEUT % 69.6 % (42.8-82.8); PLATELET COUNT 468 K/MM3 (134-434); RBC 4.68 M/mm3 (4.00-5.60); RDW 19.3 % (11.9-15.9); WHITE BLOOD COUNT 11.2 K/mm3 (4.0-10.0)
[2019-01-23 10:24] LABS: ALBUMIN 3.8 g/dl (3.4-5.0); BILIRUBIN,TOTAL 0.1 mg/dL (0.2-1); BLOOD UREA NITROGEN 15.5 mg/dL (7-18); CREATININE 0.9 mg/dL (0.55-1.3); POTASSIUM 5.3 mmol/L (3.5-5.1)
[2019-01-23 11:04] LABS: INR 1.03 (0.83-1.09); PROTHROMBIN TIME (PATIENT) 12.1 SEC (9.7-13.0)
[2019-01-23 11:30] VITALS: BP 116/76; PULSE 76; TEMP 97.7
[2019-01-23] MEDS ORDERED: LIDOCAINE HCL 1%, 10 MG/ML (20ML VIAL) ONE (11:47)
[2019-01-23] MEDS ORDERED: HEPARIN NA (PORCINE) 5,000 UNITS/ML 1ML VIAL ONE (11:47)
[2019-01-23] MEDS ORDERED: POVIDONE-IODINE OINTMENT 10% - 28.4 GM TUBE ONE (11:47)
--- NOTE | 2019-01-23 11:49 | HP ---
Admitting History and Physical - Primary Care Physician PCP: Lazaro Anand - Admission History of Present Illness: Patient is a 58 y/o male with past medical history of HLD, PAD s/p aortobifemoral bypass in 2011, R femoral tibial bypass 10/31 on therapeutic Lovenox and Plavix, s/p multiple thrombectomies of bypass, s/p right ilio- tibial bypass with non-reversed saphenous vein 03/2018, s/p open throbectomy right leg bypass, angiogram and angioplasty posterior tibial artery, infusion TPA and NTG into foot thrombectomy femoral bypass, angioplasty bypass and posterior tibial artery with s/p bypass from axillary graft to tibital bypass graft with SVG 09/2018, and revascularization procedures at [facility] in 12/2018. Patient was recently discharged from [facility] and is presenting to [facility] ER with complaints of LLE pain. Patient was sent to ER by Dr Stoner for LLE occluded femoral-femoral bypass after patient noted with cool left foot on office visit yesterday. History Source: Patient Limitations to Obtaining History: No Limitations - Past Medical History Cardiovascular: Yes: HTN, Hyperlipdemia, Other (peripheral arterial disease) Renal/: Yes: Renal Calculi - Past Surgical History Past Surgical History: Yes: Bypass - Smoking History Smoking history: Former smoker Have you smoked in the past 12 months: No Aproximately how many cigarettes per day: 0 If you are a former smoker, when did you quit?: more than one year ago - Alcohol/Substance Use Hx Alcohol Use: No History of Substance Use: reports: None - Social History ADL: Independent History of Recent Travel: No Home Medications - Allergies Allergies/Adverse Reactions: Allergies Allergy/AdvReac Type Severity Reaction Status Date / Time Penicillins Allergy Verified 01/23/19 08:20 - Home Medications Home Medications: Ambulatory Orders Aspirin [ASA -] 81 mg PO DAILY #30 tab.chew 12/02/17 Simvastatin 20 mg PO HS 03/12/18 Clopidogrel Bisulfate [Plavix -] 75 mg PO DAILY tablet 10/07/18 Gabapentin [Neurontin -] 300 mg PO TID #0 capsule 10/07/18 Enoxaparin [Lovenox -] 100 mg SQ BID 01/23/19 Review of Systems - Review of Systems Constitutional: reports: No Symptoms Eyes: reports: No Symptoms HENT: reports: No Symptoms Neck: reports: No Symptoms Cardiovascular: reports: No Symptoms Respiratory: reports: No Symptoms Gastrointestinal: reports: No Symptoms Genitourinary: reports: No Symptoms Breasts: reports: No Symptoms Reported Musculoskeletal: reports: Extremity Pain (LLE) Integumentary: reports: No Symptoms Neurological: reports: No Symptoms Endocrine: reports: No Symptoms Hematology/Lymphatic: reports: No Symptoms Psychiatric: reports: No Symptoms Physical Examination Vital Signs: Vital Signs Temperature 97.7 F 01/23/19 11:29 Pulse Rate 76 01/23/19 11:29 Respiratory Rate 18 01/23/19 11:29 Blood Pressure 116/76 01/23/19 11:29 O2 Sat by Pulse Oximetry (%) 98 01/23/19 11:29 Constitutional: Yes: No Distress, Calm Eyes: Yes: Conjunctiva Clear HENT: Yes: Atraumatic Neck: Yes: Supple Cardiovascular: Yes: Regular Rate and Rhythm Respiratory: Yes: Regular, CTA Bilaterally Gastrointestinal: Yes: Normal Bowel Sounds, Soft Musculoskeletal: Yes: Other (LLE enrico) Extremities: Yes: WNL Edema: No Integumentary: Yes: Other (scars RLE) Wound/Incision: Yes: Dressing Dry and Intact (R groin) Neurological: Yes: Alert, Oriented Psychiatric: Yes: Alert, Oriented Labs: CBC, BMP 01/23/19 09:30 01/23/19 09:30 Problem List - Problems (1) PVD (peripheral vascular disease) with claudication Assessment/Plan: -patient is scheduled for LLE femoral-femoral bypass today -Lovenox, Aspirin, Plavix -Vascular on board Code(s): I73.9 - PERIPHERAL VASCULAR DISEASE, UNSPECIFIED (2) HLD (hyperlipidemia) Assessment/Plan: -Simvastatin Code(s): E78.5 - HYPERLIPIDEMIA, UNSPECIFIED Qualifiers: Hyperlipidemia type: pure hypercholesterolemia Qualified Code(s): E78.00 - Pure hypercholesterolemia, unspecified; E78.0 - Pure hypercholesterolemia Assessment/Plan see problem list dvt ppx
[2019-01-23] MEDS ORDERED: PROPOFOL 20 ML ONE ×3 (12:15→12:27)
[2019-01-23] MEDS ORDERED: MIDAZOLAM HCL 2 MG/2 ML SINGLE DOSE VIAL ONE ×2 (12:24)
[2019-01-23] MEDS ORDERED: ceFAZolin SODIUM 1 GM VIAL IVPB ONE (12:30)
[2019-01-23] MEDS ORDERED: LIDOCAINE HCL 1%, 10 MG/ML (20ML VIAL) INF ONE (12:44)
[2019-01-23] MEDS ORDERED: HEPARIN NA (PORCINE) 1,000 UNITS/ML 10ML M-D VIAL SQ ONE (13:00)
--- NOTE | 2019-01-23 14:33 | CONSULT ---
Consult - text type - Consultation Consultation Note: 58 year old man with severe arterial PAD. He has an axillo-bifemoral bypass and right femoral tibial bypass which has thrombosed multiple times despite daily anticoagulation with multiple agents. Last week he required a revision bran the bypass to the right leg. He has continued on daily Lovenox, aspirin and Plavix. Yesterday he was seen in the office and his left foot was cool. Duplex showed occlusion of the Fem-fem bypass. He is now admitted for thrombectomy of the fem-fem bypass. PE is notable for a warm right foot and cool left foot. PT doppler in right foot. Right groin incision with levy and sutures intact, no swelling.
--- NOTE | 2019-01-23 14:35 | OP ---
Operative Note - Note: Operative Date: 01/23/19 Pre-Operative Diagnosis: Thrombosed fem-fem bypass Operation: Open thrombectomy fem-fem bypass. Angioplasty left femoral artery Findings: Thrombosed fem-fem bypass Stenosis proximal left SFA. Chronic occlusion of left popliteal artery Occlusion of axillo-femoral raft Post-Operative Diagnosis: Same as Pre-op Surgeon: Carlos Stoner Anesthesiologist/CAD CAM PROGRAMMER: Savlatore Manuel Anesthesia: Fractional Specimens Removed: Thrombus Estimated Blood Loss (mls): 20
[2019-01-23] MEDS ORDERED: HEPARIN NA (PORCINE) 5,000 UNITS/ML 1ML VIAL IVPUSH STA (15:05)
--- NOTE | 2019-01-23 15:10 | PN ---
Progress Note (short form) - Note Progress Note: Due to lack of supplies needed to complete the operative procedure I have arranged for transfer to [facility]. Mr Dave is stable and pain-free. His physical exam is unchanged. Patient and family are aware and agree to the plan.
--- NOTE | 2019-01-23 15:17 | EKG ---
Test Reason : Blood Pressure : / mmHG Vent. Rate : 078 BPM Atrial Rate : 078 BPM P-R Int : 130 ms QRS Dur : 088 ms QT Int : 392 ms P-R-T Axes : 042 054 040 degrees QTc Int : 446 ms NORMAL SINUS RHYTHM NORMAL ECG WHEN COMPARED WITH ECG OF 01-OCT-2018 16:50, NON-SPECIFIC CHANGE IN ST SEGMENT IN INFERIOR LEADS Confirmed by MD Anthony, Nixon ([id number]) on 01/23/2019 3:16:53 PM Referred By: Confirmed By:Nixon Cruz MD
[2019-01-23] MEDS ORDERED: GABAPENTIN 300 MG CAPSULE (FP) PO SCH (22:00)
[2019-01-23] MEDS ORDERED: CHLORHEXIDINE GLUCONATE 4% CLEANSER FOR DECOLONIZATION TP SCH (22:00)
[2019-01-23] MEDS ORDERED: ENOXAPARIN NA (PORCINE) 80 MG/0.8 ML DISP.SYRIN SQ SCH (22:00)
[2019-01-23] MEDS ORDERED: MUPIROCIN 2% TOPICAL OINTMENT FOR DECOLONIZATION NS SCH (22:00)
[2019-01-23] MEDS ORDERED: ATORVASTATIN CA 10 MG TABLET (FP) PO SCH (22:00)
[2019-01-24] MEDS ORDERED: ASPIRIN 81 MG CHEWABLE TABLETS PO SCH (10:00)
[2019-01-24] MEDS ORDERED: CLOPIDOGREL BISULFATE 75 MG TABLET (FP) PO SCH (10:00)
--- NOTE | 2019-01-26 09:33 | OP ---
DATE OF OPERATION: 01/23/2019 SURGEON: Carlos Leung MD PROCEDURE: Open thrombectomy, femorofemoral bypass graft. Angioplasty of left femoral artery. PREOPERATIVE DIAGNOSIS: Thrombosed femorofemoral bypass graft. POSTOPERATIVE DIAGNOSIS: Thrombosed femorofemoral bypass graft with stenosis of the left femoral artery and intraoperative occlusion of the axillofemoral bypass. ANESTHESIA: Fractional. ANESTHESIOLOGIST: Salvatore Manuel MD OPERATIVE FINDINGS: The right to left femorofemoral bypass graft was thrombosed. Following thrombectomy of the outflow, there was severe stenosis of the proximal superficial femoral artery. The distal femoral artery was patent. The popliteal artery was chronically occluded with multiple collaterals to the calf. Following an attempted inflow thrombectomy, there was loss of inflow in the axillofemoral bypass graft presumably due to dissection of thrombus. OPERATIVE PROCEDURE: Following routine patient identification, intravenous sedation was established. Both groins, lower abdomen, and thighs were prepped with ChloraPrep. Time-out was performed. A transverse incision was made over the femorofemoral bypass in the midline, and subcutaneous tissues divided with cautery. The graft was mobilized and secured with vessel loops. The patient was systemically heparinized. A transverse incision was made in the graft. A No. 4 Johnnie Catheter was passed through the outflow of the left leg and withdrawn with removal of thrombus. After several passes, there was arterial back-bleeding. A feed was placed in the graft and angiography performed with the above noted findings. A wire was advanced through the femoral anastomosis into the superficial femoral artery. The artery was dilated with a 5 and 6 mm balloon because there was no 7 mm balloon available. This resulted in improved diameter of the superficial femoral artery and graft artery anastomosis with approximately 20% residual stenosis. The graft was filled with heparin solution and was reoccluded. Attempts to thrombectomize the inflow were unsuccessful. Multiple passes of the 4-Singaporean Johnnie catheter withdrew clot, but could not restore inflow. During these attempts, several balloons ruptured and there were no additional Johnnie balloons of appropriate size to use. Due to the lack of available equipment, decision was made to close the graft incision and transfer the patient to another facility to complete the procedure. The incision in the Gortex graft was closed with running suture of 6-0 Prolene. Clamps were removed. A small amount of back-bleeding from the left side was noted, and Surgicel applied. The wound was then closed with interrupted suture of 3-0 Vicryl and skin levy. Sterile dressings were applied, and the patient was transferred to the intensive care unit to await transfer. CARLOS LEUNG M.D. [id number] MTDD
--- NOTE | 2019-01-26 16:40 | PATH ---
Surgical Pathology Report Patient Name: ABIGAIL PERLA Med. Rec. #: [id number] /Age/Gender: 1960 (Age: 58) / M Account: [id number] Location: ICU REGIONAL AIRLINE PILOT Taken: 01/23/2019 Received: 01/25/2019 Reported: 01/26/2019 Physicians: Carlos Stoner M.D. Specimen(s) Received CLOTS Clinical History Femoral-femoral graft occlusion Final Diagnosis CLOTS, FEM-FEM, OPEN THROMBECTOMY: BLOOD/FIBRIN CLOT. Electronically Signed Karishma Arias M.D. Gross Description Received in formalin labeled "fem-fem clots," is a 3.0 x 3.0 x 0.4 cm aggregate of red-brown blood clot. A textile designs sales representative portion is submitted in one cassette. DL/01/25/2019 saudi/01/25/2019
== END 2019-01-24 08:10 | disposition short-term general hospital (02) | DRG 254 ==
LOC: JER 08:14 → JERBED 10:35 → JICU 14:27
PROVIDERS: ADMIT Family Medicine; ATTEND Family Medicine
PROC: 047L0ZZ Dilation of Left Femoral Artery, Open Approach (ICD-10-PCS; 2019-01-23)
PROC: 3E05017 Introduction of Other Thrombolytic into Peripheral Artery, Open Approach (ICD-10-PCS; 2019-01-23)
PROC: 04CL0ZZ Extirpation of Matter from Left Femoral Artery, Open Approach (ICD-10-PCS; principal; 2019-01-23 12:14)
DX: I74.3 Embolism and thrombosis of arteries of the lower extremities (principal); I10 Essential (primary) hypertension; E78.5 Hyperlipidemia, unspecified
CPT/HCPCS: 36415; 71046-TC-FY; 76000-TC-FY; 80053; 85025; 85610; 85730; 86850; 86900; 86901; 88304-TC; 93005; 93010; 99283-25; J1644

== ENCOUNTER 2019-02-17 05:23 | Day surgery (SDC) | payer BC ==
[2019-02-16 10:31] VITALS: BMI 23.9
[2019-02-17] MEDS ORDERED: HEPARIN NA (PORCINE) 5,000 UNITS/ML 1ML VIAL ONE (07:27)
[2019-02-17] MEDS ORDERED: LIDOCAINE HCL/PF 2% SDV 5ML VIAL ONE (08:04)
[2019-02-17] MEDS ORDERED: MIDAZOLAM HCL 2 MG/2 ML SINGLE DOSE VIAL ONE (08:05)
[2019-02-17] MEDS ORDERED: PROPOFOL 20 ML ONE (08:05)
[2019-02-17] MEDS ORDERED: VANCOMYCIN 1,000 MG VIAL (RESTRICTED TO ID ONLY) ONE (08:29)
[2019-02-17] MEDS ORDERED: VANCOMYCIN 1,000 MG VIAL (RESTRICTED TO ID ONLY) IVPB ONE (08:30)
[2019-02-17] MEDS ORDERED: BACITRACIN 50,000 UNITS VIAL TP ONE (08:37)
[2019-02-17] MEDS ORDERED: DESFLURANE GAS 240 ML BOTTLE IH ONE (08:41)
[2019-02-17] MEDS ORDERED: POVIDONE-IODINE OINTMENT 10% - 28.4 GM TUBE ONE (09:15)
[2019-02-17] MEDS ORDERED: POVIDONE-IODINE OINTMENT 10% - 28.4 GM TUBE TP ONE (09:15)
[2019-02-17] MEDS ORDERED: KETOROLAC TROMETHAMINE 30 MG/1 ML VIAL ONE (09:25)
--- NOTE | 2019-02-17 09:28 | HP ---
Satellite [facility] - Chief Complaint History of Present Illness: 58 year old with bypass right leg with recent revision after graft thrombosis. Right groin wound has small area of dehisence with graft exposed. History Source: Patient Limitations to Obtaining History: No Limitations - Past Medical History Allergies/Adverse Reactions: Allergies Allergy/AdvReac Type Severity Reaction Status Date / Time Penicillins Allergy Verified 02/17/19 06:50 Cardiovascular: Yes: HTN, Hyperlipdemia, Other (peripheral arterial disease) Renal/: Yes: Renal Calculi - Current Medications Current Medications: Home Medications Medication Instructions Recorded Aspirin [ASA -] 81 mg PO DAILY #30 tab.chew 12/02/17 Simvastatin 20 mg PO HS 03/12/18 Clopidogrel Bisulfate [Plavix -] 75 mg PO DAILY tablet 10/07/18 Gabapentin [Neurontin -] 300 mg PO TID #0 capsule 10/07/18 Enoxaparin [Lovenox -] 100 mg SQ BID 01/23/19 Clindamycin [Cleocin -] 300 mg PO TID 02/16/19 Gentamicin 0.1% Ointment 1 applic TP DAILY 02/16/19 [Garamycin 0.1% Ointment -] Satellite Physical Exam - Physical Examination Vital Signs: Vital Signs Period Temp Pulse Resp BP Sys/White Pulse Ox Last 24 Hr 98.4 F 92 20 109/72 100 General Appearance: No Distress ENT: Clear Lung: Clear to auscultation Heart: Regular rate & rhythm Abdomen: Soft Extremities: Other (Right groin scar with central open area recently sutured. No erythema.) Satellite Impression/Plan - Impression/Plan Impression: Non-healing area of right groin incision with graft at risk Operative Procedure: Debridement and closure of right groin wound. Date to be Performed: 02/17/19
--- NOTE | 2019-02-17 09:30 | OP ---
Operative Note - Note: Operative Date: 02/17/19 Pre-Operative Diagnosis: Non-healing wound right groin incision Operation: Excisional debridement skin and SUbQ. Complex closure of wound 10 cm Findings: Small amount of non-viable adipose tissue along side bypass graft. Graft intact. Post-Operative Diagnosis: Same as Pre-op Surgeon: Carlos Stoner Anesthesiologist/FINANCIAL AID OFFICER: Mary Ellen Fleming Anesthesia: General Specimens Removed: Skin and SubQ Estimated Blood Loss (mls): 20
[2019-02-17] MEDS ORDERED: ONDANSETRON 4 MG/2 ML VIAL IVPUSH PRN (09:39)
[2019-02-17] MEDS ORDERED: oxyCODONE HCL 5 MG TABLET PO PRN (09:39)
[2019-02-17] MEDS ORDERED: ACETAMINOPHEN 500 MG TABLET (FP) PO PRN (09:39)
[2019-02-17] MEDS ORDERED: LACTATED RINGERS SOLUTION 1,000 ML IV SCH (09:45)
[2019-02-17 11:58] VITALS: BP 109/73; PULSE 82; TEMP 97.7
--- NOTE | 2019-02-17 16:33 | OP ---
DATE OF OPERATION: 02/17/2019 SURGEON: Carlos Leung MD PROCEDURE: Excisional debridement of skin and subcutaneous tissue. Complex closure of wound 10 cm in length. PREOPERATIVE DIAGNOSIS: Nonhealing wound of right groin incision. POSTOPERATIVE DIAGNOSIS: Nonhealing wound of right groin incision. ANESTHESIA: General. ANESTHESIOLOGIST: Mary Ellen Fleming MD OPERATIVE FINDINGS: The site of recent vascular bypass graft, an area of dehiscence of the incision was present with exposure of the underlying prosthetic graft. The tissues of the wound were viable, with small amount of necrotic fatty tissue. There was no gross purulence seen. OPERATIVE PROCEDURE: Following routine patient identification with side and site verification, general anesthesia was induced. The right groin and thigh were prepped with Betadine solution. Incision was made around the old scar, including the area of dehiscence, through clean margins. The length of the incision was approximately 10 cm. The skin was then deepened into subcutaneous tissue without undermining using cautery. The incision was taken down to the superficial muscle fascia, and then the skin and subcutaneous tissues were elevated out of the wound using cautery away from the vascular bypass graft which was left in its bed. The wound was then cultured and irrigated with Bacitracin solution. The skin edges on both sides were then freed by elevating off of the muscle fascia using cautery, leaving a relatively intact subcutaneous layer. The wound was irrigated a second time, and then the subcutaneous tissues were approximated over the bypass using interrupted sutures of 3-0 Vicryl without undue tension. The skin was then closed with interrupted sutures of 3-0 nylon. A sterile dressing consisting of Betadine ointment, dry gauze, and Tegaderm was applied, and the patient was taken to recovery room in stable condition. CARLOS LEUNG M.D. [id number]
--- NOTE | 2019-02-18 17:47 | PATH ---
Surgical Pathology Report Patient Name: ABIGAIL PERLA Med. Rec. #: [id number] /Age/Gender: 1960 (Age: 58) / M Account: [id number] Location: U SURGICAL Taken: 02/17/2019 Received: 02/17/2019 Reported: 02/18/2019 Physicians: Carlos Stoner M.D. Specimen(s) Received SKIN RIGHT GROIN Clinical History Right groin wound debridement Final Diagnosis SKIN, RIGHT GROIN, EXCISION: SEGMENT OF SKIN WITH ULCERATION, NECROTIC INFLAMMATION WITH GRANULATION TISSUE FORMATION, AND FOCAL FOREIGN BODY TYPE MULTINUCLEATED GIANT CELLS REACTION. Electronically Signed Francisca Brown M.D. Gross Description Received in formalin, labeled "skin right groin" with a portion of skin measuring 9.0 x 2.0 x 0.7 cm. 2 ulcerated area measuring 1.5 cm and 1.0 cm in greatest dimension identified. Appliance Repairer sections submitted in 2 cassettes.1. Larger ulcer. 2. Smaller ulcer and normal appearing skin PALOMA/02/17/2019 osito/02/17/2019
== END 2019-02-17 12:01 | disposition home or self-care (01) ==
LOC: JASU-SURG 05:23
PROVIDERS: ATTEND Surgery
PROC: 0JQ83ZZ Repair Abdomen Subcutaneous Tissue and Fascia, Percutaneous Approach (ICD-10-PCS; 2019-02-17)
PROC: 0JB80ZZ Excision of Abdomen Subcutaneous Tissue and Fascia, Open Approach (ICD-10-PCS; principal; 2019-02-17 08:00)
DX: T81.89XA Other complications of procedures, not elsewhere classified, initial encounter (principal); Y83.9 Surgical procedure, unspecified as the cause of abnormal reaction of the patient, or of later complication, without mention of misadventure at the time of the procedure; Y92.9 Unspecified place or not applicable
CPT/HCPCS: 87070; 87205; 88305-TC; 94760; J1644

== ENCOUNTER 2019-02-28 07:28 | Emergency (ER) | payer BC | END 2019-02-28 11:21 | disposition home or self-care (01) | LOC: JER 07:28 ==

== ENCOUNTER 2019-05-25 15:56 | Emergency (ER) | payer BC ==
--- NOTE | 2019-05-25 16:05 | PDOC ---
Rapid Medical Evaluation Chief Complaint: Pain, Acute Time Seen by Provider: 05/25/19 16:00 Medical Evaluation: Allergies Allergy/AdvReac Type Severity Reaction Status Date / Time Penicillins Allergy Verified 02/28/19 07:43 05/25/19 16:01 I have performed a brief in-person evaluation of this patient. 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 report vomiting 4 times and vomiting every time he eats anything. Denies fever,chills, recent travel Pertinent physical exam findings: A&O x 3 in NAD I have ordered the following: cbc,cmp, lipase The patient will proceed to the ED for further evaluation. Discharge Disposition - Diagnosis Abdominal pain Qualifiers: Abdominal location: right upper quadrant Qualified Code(s): R10.11 - Right upper quadrant pain - Discharge Dispostion Condition at time of disposition: Stable - Referrals - Patient Instructions - Post Discharge Activity
[2019-05-25 16:06] VITALS: TEMP 98; BMI 23.2
[2019-05-25 16:41] LABS: EOS % 0.4 % (0-4.5); HEMOGLOBIN 12.8 GM/dL (11.7-16.9); LYMPH % 25.3 % (8-40); MCH 25.6 pg (25.7-33.7); MCHC 31.9 g/dl (32.0-35.9); MEAN CELL VOLUME 80.4 fl (80-96); MONO % 5.8 % (3.8-10.2); NEUT % 67.5 % (42.8-82.8); PLATELET COUNT 598 K/MM3 (134-434); RBC 4.98 M/mm3 (4.00-5.60); RDW 18.8 % (11.9-15.9); WHITE BLOOD COUNT 10.1 K/mm3 (4.0-10.0)
[2019-05-25 16:48] LABS: EPI CELLS 0.7 /HPF (0-5/HPF); HYALINE CASTS 2 /lpf (0-8); URINE APPEARANCE CLOUDY; URINE BACTERIA 0.5 /hpf (NEGATIVE); URINE BILIRUBIN NEGATIVE (NEGATIVE); URINE COLOR YELLOW; URINE GLUCOSE (UA) NEGATIVE (NEGATIVE); URINE KETONE NEGATIVE (NEGATIVE); URINE LEUK ESTERASE NEGATIVE (NEGATIVE); URINE NITRITE NEGATIVE (NEGATIVE); URINE PROTEIN 1+ (NEGATIVE); URINE RBC 1122 /hpf (0-4); URINE UROBILINOGEN 0.2 mg/dL (0.2-1.0); URINE WBC 4 /hpf (0-5)
[2019-05-25 17:12] LABS: ALBUMIN 3.7 g/dl (3.4-5.0); BILIRUBIN,TOTAL 0.2 mg/dL (0.2-1); BLOOD UREA NITROGEN 12.5 mg/dL (7-18); CALCIUM 9.6 mg/dL (8.5-10.1); CREATININE 0.9 mg/dL (0.55-1.3); POTASSIUM 4.6 mmol/L (3.5-5.1); TOT PROT 7.6 g/dl (6.4-8.2)
--- NOTE | 2019-05-25 17:24 | PDOC ---
History of Present Illness - General Chief Complaint: Pain, Acute Stated Complaint: RT SIDE ABD/BACK PAIN Time Seen by Provider: 05/25/19 16:00 History Source: Patient - History of Present Illness Timing/Duration: reports: other (today) Quality: reports: severe Past History - Past Medical History Allergies/Adverse Reactions: Allergies Allergy/AdvReac Type Severity Reaction Status Date / Time Penicillins Allergy Verified 05/25/19 16:05 Home Medications: Ambulatory Orders Aspirin [ASA -] 81 mg PO DAILY #30 tab.chew 12/02/17 Simvastatin 20 mg PO HS 03/12/18 Clopidogrel Bisulfate [Plavix -] 75 mg PO DAILY tablet 10/07/18 Gabapentin [Neurontin -] 300 mg PO TID #0 capsule 10/07/18 Enoxaparin [Lovenox -] 100 mg SQ BID 01/23/19 Gentamicin 0.1% Ointment [Garamycin 0.1% Ointment -] 1 applic TP DAILY 02/16/19 Ondansetron [Zofran *Odt*] 4 mg SL BID #5 od.tablet 05/25/19 Tamsulosin HCl [Flomax] 0.4 mg PO DAILY #14 cap.er.24h 05/25/19 Anemia: No Asthma: No Cancer: No Cardiac Disorders: No CVA: No COPD: No CHF: No DVT: Yes (on lovenox and plavix) Dementia: No Diabetes: No GI Disorders: No Disorders: No HTN: No Hypercholesterolemia: Yes Kidney Stones: Yes Liver Disease: No Seizures: No Thyroid Disease: No - Surgical History Abdominal Surgery: Yes Appendectomy: No Cardiac Surgery: No Cholecystectomy: No Lung Surgery: No Neurologic Surgery: No Orthopedic Surgery: No - Immunization History Immunization Up to Date: Yes - Psycho Social/Smoking Cessation Hx Smoking Status: Yes Smoking History: Former smoker Have you smoked in the past 12 months: No Number of Cigarettes Smoked Daily: 0 If you are a former smoker, when did you quit?: more than one year ago Cigars Per Day: 5 Information on smoking cessation initiated: No 'Breaking Loose' booklet given: 03/13/18 Hx Alcohol Use: No Drug/Substance Use Hx: No Substance Use Type: None Hx Substance Use Treatment: No Abd/GI Specific PMHX - Complaint Specific PMHX Colitis: No Diverticulitis: No Gall Bladder Disease: No GERD: No Hepatitis: No Irritable Bowel Synd (IBS): No Pancreatitis: No GI Ulcer Disease: No Review of Systems - Review of Systems Constitutional: No: Chills, Fever ABD/GI: Yes: Nausea, Vomiting. No: Blood Streaked Bowels, Constipated, Diarrhea , Tarry Stools : Yes: Flank Pain. No: Burning, Dysuria, Discharge, Hematuria *Physical Exam - Vital Signs Last Vital Signs Temp Pulse Resp BP Pulse Ox 98.0 F 90 17 139/86 100 05/25/19 15:58 05/25/19 15:58 05/25/19 15:58 05/25/19 15:58 05/25/19 15:58 - Physical Exam General Appearance: Yes: Appropriately Dressed. No: Apparent Distress HEENT: positive: Normal Voice Neck: positive: Supple Respiratory/Chest: negative: Respiratory Distress Gastrointestinal/Abdominal: positive: Normal Bowel Sounds, Soft. negative: Tender, Distended, Guarding, Rebound Musculoskeletal: negative: CVA Tenderness Integumentary: positive: Dry, Warm Neurologic: positive: Fully Oriented, Alert, Normal Mood/Affect ED Treatment Course - LABORATORY CBC & Chemistry Diagram: 05/25/19 16:22 05/25/19 16:22 - ADDITIONAL ORDERS Additional order review: Laboratory Results 05/25/19 05/25/19 16:22 16:22 Sodium 138 Potassium 4.6 Chloride 105 Carbon Dioxide 27 Anion Gap 5 L BUN 12.5 Creatinine 0.9 Est GFR (CKD-EPI)AfAm 107.97 Est GFR (CKD-EPI)NonAf 93.16 Random Glucose 104 Calcium 9.6 Total Bilirubin 0.2 AST 14 L ALT 24 Alkaline Phosphatase 93 Total Protein 7.6 Albumin 3.7 Lipase 328 Urine Color Yellow Urine Appearance Cloudy Urine pH 5.0 Ur Specific [place] 1.016 Urine Protein 1+ H Urine Glucose (UA) Negative Urine Ketones Negative Urine Blood 3+ H Urine Nitrite Negative Urine Bilirubin Negative Urine Urobilinogen 0.2 Ur Leukocyte Esterase Negative Urine WBC (Auto) 4 Urine RBC (Auto) 1122 Urine Casts (Auto) 2 U Epithel Cells (Auto) 0.7 Urine Bacteria (Auto) 0.5 05/25/19 16:22 RBC 4.98 MCV 80.4 MCHC 31.9 L RDW 18.8 H MPV 7.0 L Neutrophils % 67.5 Lymphocytes % 25.3 Monocytes % 5.8 Eosinophils % 0.4 Basophils % 1.0 Medical Decision Making - Medical Decision Making 05/25/19 17:24 58-year-old male, significant vasculopathy w/ multiple LE vascular surgeries, on lifetime lovenox and plavix, f/u with Dr Stoner, renal stone here with R flank pain with n/v that started today, similar to his stone. No dysuria, hematuria, fever or chills. see exam Possible recurrent renal colic Stable here w/ benign abd and no overt CVAT -pain control -zofran -IVF -labs -CT 05/25/19 19:00 Labs only remarkable for 3+ blood on UA. Patient s/p CT with pending results. Meds and fluids in progress. Signed out to night MARCLEA at this point Discharge - Discharge Information Problems reviewed: Yes Clinical Impression/Diagnosis: Renal colic on right side Condition: Stable Disposition: HOME - Additional Discharge Information Prescriptions: Ondansetron [Zofran *Odt*] 4 mg SL BID #5 od.tablet Tamsulosin HCl [Flomax] 0.4 mg PO DAILY #14 cap.er.24h - Follow up/Referral - Patient Discharge Instructions Patient Printed Discharge Instructions: Kidney Stones -- Adult Additional Instructions: drink plenty of fluids take flomax as prescribed take you oxycodone at home as needed for pain follow up with a urologist as soon as possible. - Post Discharge Activity Work/Back to School Note: Back to Work
[2019-05-25] MEDS ORDERED: KETOROLAC TROMETHAMINE 30 MG/1 ML VIAL IVPUSH ONE (17:28)
[2019-05-25] MEDS ORDERED: SODIUM CHLORIDE 1,000 ML IV STA (17:28)
[2019-05-25] MEDS ORDERED: ONDANSETRON 4 MG/2 ML VIAL IVPUSH ONE (17:28)
[2019-05-25] MEDS ORDERED: ONDANSETRON 4 MG/2 ML VIAL ONE (18:53)
[2019-05-25] MEDS ORDERED: KETOROLAC TROMETHAMINE 30 MG/1 ML VIAL ONE (18:53)
[2019-05-25] MEDS ORDERED: TAMSULOSIN HCL 0.4 MG CAP PO ONE (19:05)
--- NOTE | 2019-05-25 19:46 | PDOC ---
*Physical Exam - Vital Signs Last Vital Signs Temp Pulse Resp BP Pulse Ox 98.0 F 90 17 139/86 100 05/25/19 15:58 05/25/19 15:58 05/25/19 15:58 05/25/19 15:58 05/25/19 15:58 ED Treatment Course - LABORATORY CBC & Chemistry Diagram: 05/25/19 16:22 05/25/19 16:22 - ADDITIONAL ORDERS Additional order review: Laboratory Results 05/25/19 05/25/19 16:22 16:22 Sodium 138 Potassium 4.6 Chloride 105 Carbon Dioxide 27 Anion Gap 5 L BUN 12.5 Creatinine 0.9 Est GFR (CKD-EPI)AfAm 107.97 Est GFR (CKD-EPI)NonAf 93.16 Random Glucose 104 Calcium 9.6 Total Bilirubin 0.2 AST 14 L ALT 24 Alkaline Phosphatase 93 Total Protein 7.6 Albumin 3.7 Lipase 328 Urine Color Yellow Urine Appearance Cloudy Urine pH 5.0 Ur Specific [place] 1.016 Urine Protein 1+ H Urine Glucose (UA) Negative Urine Ketones Negative Urine Blood 3+ H Urine Nitrite Negative Urine Bilirubin Negative Urine Urobilinogen 0.2 Ur Leukocyte Esterase Negative Urine WBC (Auto) 4 Urine RBC (Auto) 1122 Urine Casts (Auto) 2 U Epithel Cells (Auto) 0.7 Urine Bacteria (Auto) 0.5 05/25/19 16:22 RBC 4.98 MCV 80.4 MCHC 31.9 L RDW 18.8 H MPV 7.0 L Neutrophils % 67.5 Lymphocytes % 25.3 Monocytes % 5.8 Eosinophils % 0.4 Basophils % 1.0 - Medications Given in the ED: ED Medications Discontinued Medications Generic Name Dose Route Start Last Admin Trade Name Freq PRN Reason Stop Dose Admin Sodium Chloride 1,000 mls @ 1,000 mls/hr 05/25/19 17:28 05/25/19 19:10 Normal Saline - IV 05/25/19 18:27 1,000 mls/hr ASDIR STA Administration Ketorolac Tromethamine 30 mg 05/25/19 17:28 05/25/19 19:10 Toradol Injection - IVPUSH 05/25/19 17:29 30 mg ONCE ONE Administration Ondansetron HCl 4 mg 05/25/19 17:28 05/25/19 19:12 Zofran Injection IVPUSH 05/25/19 17:29 4 mg ONCE ONE Administration Medical Decision Making - Medical Decision Making 05/25/19 20:17 pain is improved will d/c home. advised patient to follow up with urology as soon as possible. patient reports that he has enough oxycodone at home. 05/26/19 06:39 Discharge - Discharge Information Problems reviewed: Yes Clinical Impression/Diagnosis: Renal colic on right side Condition: Stable Disposition: HOME - Additional Discharge Information Prescriptions: Ondansetron [Zofran *Odt*] 4 mg SL BID #5 od.tablet Tamsulosin HCl [Flomax] 0.4 mg PO DAILY #14 cap.er.24h - Follow up/Referral - Patient Discharge Instructions Patient Printed Discharge Instructions: Kidney Stones -- Adult Additional Instructions: drink plenty of fluids take flomax as prescribed take you oxycodone at home as needed for pain follow up with a urologist as soon as possible. - Post Discharge Activity Work/Back to School Note: Back to Work
[2019-05-25] MEDS ORDERED: TAMSULOSIN HCL 0.4 MG CAP ONE (20:38)
[2019-05-25 20:52] VITALS: BP 131/81; PULSE 86
== END 2019-05-25 20:49 | disposition home or self-care (01) ==
LOC: JER 15:56
PROC: 3E0333Z Introduction of Anti-inflammatory into Peripheral Vein, Percutaneous Approach (ICD-10-PCS; principal; 2019-05-25)
PROC: 3E033GC Introduction of Other Therapeutic Substance into Peripheral Vein, Percutaneous Approach (ICD-10-PCS; 2019-05-25)
DX: N13.2 Hydronephrosis with renal and ureteral calculous obstruction (principal); I10 Essential (primary) hypertension; E78.5 Hyperlipidemia, unspecified; Z86.718 Personal history of other venous thrombosis and embolism; Z79.01 Long term (current) use of anticoagulants; Z79.02 Long term (current) use of antithrombotics/antiplatelets; Z87.891 Personal history of nicotine dependence; Z87.442 Personal history of urinary calculi; Z88.0 Allergy status to penicillin
CPT/HCPCS: 36415; 74176-TC; 80053; 81003; 83690; 85025; 87077; 87086; 99283-25; J7030

== ENCOUNTER 2019-07-01 04:39 | Inpatient (IN) | payer BC ==
[2019-07-01] MEDS ORDERED: HEPARIN NA (PORCINE) 5,000 UNITS/ML 1ML VIAL ONE ×6 (07:24→19:48)
[2019-07-01] MEDS ORDERED: PAPAVERINE HCL 30 MG/1 ML 10 ML VIAL NR ONE (07:24)
[2019-07-01] MEDS ORDERED: MIDAZOLAM HCL 2 MG/2 ML SINGLE DOSE VIAL ONE ×2 (07:48)
[2019-07-01] MEDS ORDERED: ROCURONIUM BROMIDE 50 MG/5 ML SYRINGE ONE ×4 (07:48→21:40)
[2019-07-01] MEDS ORDERED: fentaNYL CITRATE 250 MCG/5 ML VIAL ONE (07:48)
[2019-07-01] MEDS ORDERED: PROPOFOL 20 ML ONE ×3 (07:48→17:59)
[2019-07-01] MEDS ORDERED: LIDOCAINE HCL/PF 2% SDV 5ML VIAL ONE (07:49)
[2019-07-01] MEDS ORDERED: DESFLURANE GAS 240 ML BOTTLE IH ONE (07:51)
[2019-07-01] MEDS ORDERED: SEVOFLURANE 250 ML BTL ONE (07:51)
[2019-07-01] MEDS ORDERED: CEFAZOLIN 2 GM in DEXTROSE 5%-WATER - 100 ML IVPB ONE (07:53)
--- NOTE | 2019-07-01 07:53 | HP ---
Admitting History and Physical - Admission History Source: Patient Limitations to Obtaining History: No Limitations - Past Medical History Cardiovascular: Yes: HTN, Hyperlipdemia, Other (peripheral arterial disease) Pulmonary: No: Asthma Gastrointestinal: No: Constipation, Gastritis, GERD Renal/: Yes: Renal Calculi - Past Surgical History Past Surgical History: Yes: Bypass - Smoking History Smoking history: Former smoker Have you smoked in the past 12 months: No Aproximately how many cigarettes per day: 0 If you are a former smoker, when did you quit?: 2018 - Alcohol/Substance Use Hx Alcohol Use: No (rarely) History of Substance Use: reports: None - Social History ADL: Independent History of Recent Travel: No <Leah Robertson - Last Filed: 07/01/19 07:52> - Admission History of Present Illness: 58 yo male with ischemic right leg. Prior [id number]-[id number] tibial bypass is patent but GASFITTER into foot has become stenotic despite multiple angioplasty procedures. Last angio showed patent peroneal with good runoff to foot. - Past Surgical History Past Surgical History: Yes: Bypass (Right axillo-bifemoral bypass Right femoral to GASFITTER bypass Multiple stents in right leg bypass Flap coverage of right groin graft due to infection) <Carlos Stoner - Last Filed: 07/01/19 08:24> Home Medications <Leah Robertson - Last Filed: 07/01/19 07:52> <Carlos Stoner - Last Filed: 07/01/19 08:24> - Allergies Allergies/Adverse Reactions: Allergies Allergy/AdvReac Type Severity Reaction Status Date / Time Penicillins Allergy Verified 07/01/19 06:26 - Home Medications Home Medications: Ambulatory Orders Aspirin [ASA -] 81 mg PO DAILY #30 tab.chew 12/02/17 Simvastatin 20 mg PO HS 03/12/18 Clopidogrel Bisulfate [Plavix -] 75 mg PO DAILY tablet 10/07/18 Gabapentin [Neurontin -] 300 mg PO TID #0 capsule 10/07/18 Enoxaparin [Lovenox -] 100 mg SQ BID 01/23/19 Gentamicin 0.1% Ointment [Garamycin 0.1% Ointment -] 1 applic TP DAILY 02/16/19 Physical Examination Vital Signs: Vital Signs Temperature 98.1 F 07/01/19 06:28 Pulse Rate 84 07/01/19 06:28 Respiratory Rate 16 07/01/19 06:28 Blood Pressure 114/68 07/01/19 06:28 O2 Sat by Pulse Oximetry (%) 98 07/01/19 06:28 <Leah Robertson - Last Filed: 07/01/19 07:52> Vital Signs: Vital Signs Temperature 98.1 F 07/01/19 06:28 Pulse Rate 84 07/01/19 06:28 Respiratory Rate 16 07/01/19 06:28 Blood Pressure 114/68 07/01/19 06:28 O2 Sat by Pulse Oximetry (%) 98 07/01/19 06:28 Constitutional: Yes: No Distress Eyes: Yes: WNL HENT: Yes: WNL Neck: Yes: WNL Cardiovascular: Yes: Regular Rate and Rhythm Respiratory: Yes: WNL Gastrointestinal: Yes: Soft Extremities: Yes: Other (Right foot cool, toes cyanotic) Peripheral Pulses WNL: No (weak PT doppler right foot) <Carlos Stoner - Last Filed: 07/01/19 08:24> Problem List - Problems (1) Arterial occlusion, lower extremity Assessment/Plan: Plan revision of distal bypass to peroneal artery using arm vein, left. Code(s): I70.209 - UNSP ATHSCL [place] ARTERIES OF EXTREMITIES, UNSP EXTREMITY <Carlos Stoner - Last Filed: 07/01/19 08:24>
[2019-07-01] MEDS ORDERED: ceFAZolin SODIUM 1 GM VIAL IVPB ONE ×2 (08:23→22:30)
[2019-07-01] MEDS ORDERED: ceFAZolin SODIUM 1 GM VIAL ONE ×2 (08:46→17:34)
[2019-07-01] MEDS ORDERED: EPHEDRINE SULFATE/0.9% NACL/PF 50 MG/10 ML SYRINGE NR ONE ×2 (09:54→19:10)
[2019-07-01] MEDS ORDERED: DEXAMETHASONE SOD PHOSPHATE 4 MG/1 ML VIAL ONE ×2 (10:08→18:40)
[2019-07-01] MEDS ORDERED: NITROGLYCERIN 50 MG/10 ML VIAL IVPB ONE (10:36)
[2019-07-01] MEDS ORDERED: oxyCODONE HCL 5 MG TABLET PO PRN ×2 (11:44→12:37)
[2019-07-01] MEDS ORDERED: LACTATED RINGERS SOLUTION 1,000 ML IV SCH ×2 (11:45→23:43)
[2019-07-01] MEDS ORDERED: POVIDONE-IODINE 5% OPHTHALMIC PREP 30 ML SOLUTION ONE (12:04)
[2019-07-01] MEDS ORDERED: PROTAMINE SULFATE 50 MG/5 ML VIAL ONE (12:24)
--- NOTE | 2019-07-01 13:00 | OP ---
Operative Note - Note: Operative Date: 07/01/19 Pre-Operative Diagnosis: Ischemic right foot Operation: Open thrombectomy bypass graft. Exploration calf for peroneal artery. Angioplasty CUSTOMS VERIFIER. Placement stent proximal bypass Findings: Bypass occluded with minimal thrombus. Outflow CUSTOMS VERIFIER severe stenosis Peroneal artery not visualized proximal bypass occlusion Implants: 6 mm x 10 cm Viabahn Post-Operative Diagnosis: Same as Pre-op Surgeon: Carlos Stoner General Education Professor: Leah Robertson Anesthesiologist/SUPERVISOR MELT HOUSE: Chauncey Beckham Anesthesia: General Estimated Blood Loss (mls): 200
[2019-07-01 13:15] LABS: BASO % 0.7 % (0-2.0); EOS % 0.5 % (0-4.5); HEMATOCRIT 34.7 % (35.4-49); HEMOGLOBIN 11.1 GM/dL (11.7-16.9); LYMPH % 17.5 % (8-40); MCH 26.1 pg (25.7-33.7); MEAN CELL VOLUME 81.6 fl (80-96); MEAN PLT VOLUME 7.1 fl (7.5-11.1); MONO % 3.2 % (3.8-10.2); NEUT % 78.1 % (42.8-82.8); PLATELET COUNT 425 K/MM3 (134-434); RBC 4.26 M/mm3 (4.00-5.60); RDW 20.1 % (11.9-15.9); WHITE BLOOD COUNT 9.3 K/mm3 (4.0-10.0)
[2019-07-01 13:35] LABS: INR 1.04 (0.83-1.09); PROTHROMBIN TIME (PATIENT) 12.3 SEC (9.7-13.0)
[2019-07-01] MEDS ORDERED: HYDROmorphone *PCA* 10MG/50ML DISP.SYRIN ONE (13:51)
--- NOTE | 2019-07-01 13:53 | SURG ---
Surgery Dub Room Engineer Note Dub Room Engineer: Leah Robertson PA-C Date of Service: 07/01/19 Diagnosis: Ischemic right foot Procedure: Open thrombectomy bypass graft. Exploration calf for peroneal artery. Angioplasty APPLIED TECHNOLOGIST. Placement stent proximal bypass I was present for the entirety of the operative procedure. For further detail, please refer to operative report. Visit type - Case Type Case Type: Scheduled - Emergency Emergency Visit: No - New patient This patient is new to me today: Yes Date on this admission: 07/01/19
[2019-07-01] MEDS ORDERED: DEXAMETHASONE SOD PHOSPHATE 4 MG/1 ML VIAL IVPUSH PRN ×2 (13:59→23:43)
[2019-07-01] MEDS ORDERED: ONDANSETRON 4 MG/2 ML VIAL IVPUSH PRN ×2 (13:59→23:43)
[2019-07-01] MEDS ORDERED: GABAPENTIN 300 MG CAPSULE PO SCH (14:00)
[2019-07-01] MEDS ORDERED: HYDROmorphone *PCA* 10MG/50ML DISP.SYRIN PCA ONE (14:02)
[2019-07-01 14:05] LABS: BLOOD UREA NITROGEN 22.1 mg/dL (7-18); CALCIUM 8.7 mg/dL (8.5-10.1); POTASSIUM 4.6 mmol/L (3.5-5.1)
[2019-07-01] MEDS ORDERED: PROMETHAZINE HCL 25 MG/1 ML VIAL IVPB PRN ×2 (14:19→23:43)
[2019-07-01] MEDS ORDERED: HYDROmorphone *PCA* 10MG/50ML DISP.SYRIN PCA SCH (14:30)
[2019-07-01] MEDS ORDERED: HEPARIN NA (PORCINE) 5,000 UNITS/ML 1ML VIAL IVPUSH PRN ×7 (15:45→23:32)
--- NOTE | 2019-07-01 15:48 | CONSULT ---
Consultation: REQUESTING PROVIDER: CONSULT REQUEST: We have been asked to medically evaluate this patient for ( specify). HISTORY OF PRESENT ILLNESS: 58 yo M PMH HTN, HLD, extensive PVD, s/p aortobifemoral bypass in 2011, R femoral-tibial bypass in October 2017 on therapeutic lovenox and plavix, s/p multiple thrombectomies of bypass, s/p right ilio-tibial bypass with non- reversed saphenous vein (04/08/18), s/p open thrombectomy w/ right leg bypass, agiogram and angioplasty of posterior tibial artery, infusion TPA and NTG into foot on 06/25/18, re-occluded 06/28/18, s/p right axillary-fem and fem-fem bypass (07/04), s/p bypass from axillary graft to tibial bypass graft w/ SVG in 09/2018 and subsequently additional revascularization procedures at [facility] in December 2018, POD#0 s/p R open thrombectomy bypass graft, calf exploration for peroneal artery, angioplasty WIREWORKER, and placement stent proximal bypass. Has had multiple vascular surgeries in the past, and prior axillary-femoral- posterior tibial bypass was seen to be patent, but WIREWORKER into the foot has become stenotic despite multiple angioplasty procedures. Continues to be non- Dopplerable and non-palpable at proximal tibial and dorsalis pedis on right foot , as was the case pre-op. Upon arrival to ICU, there was concern that the patient's left foot was cold. Dorsalis pedis and proximal tibial both found to be non-palpable and non- dopplerable by ICU staff. JUSTIN Dewitt notified and examined the patient. Dr. Stoner will be by to evaluate the patient. Patient states that his current pain is 4.5/10 and dropping. Notes that he has two non-healing wounds from prior surgeries near his R hip and on his R thigh. The R hip wound dressing was changed yesterday, the R thigh dressing was changed today. Reports that his R foot is always numb, but his L foot also has occasional numbness. Currently, he does confirm that his L foot is numb, but states that it is significantly less numb than his R foot. 0520: Dr. Stoner confirms that the patient requires revision, and patient was taken back to the OR. Found to have chronic thrombus occluding axillofemoral to fem-fem bypass anastomosis, with occlusion of the left SFA and reconstitution of above knee popliteal s/p stenting and return of blood flow. REVIEW OF SYSTEMS: CONSTITUTIONAL: denies fever, chills, diaphoresis, generalized weakness, malaise , loss of appetite, weight change HEENT: denies rhinorrhea, nasal congestion, throat pain, throat swelling, difficulty swallowing, mouth swelling, ear pain, eye pain, visual changes CARDIOVASCULAR: denies chest pain, syncope, palpitations, irregular heart rate, lightheadedness, peripheral edema RESPIRATORY: denies cough, shortness of breath, dyspnea with exertion, orthopnea , wheezing, stridor, hemoptysis GASTROINTESTINAL: denies abdominal pain, abdominal distension, nausea, vomiting , diarrhea, constipation, melena, hematochezia GENITOURINARY: denies dysuria, frequency, urgency, hesitancy, hematuria, flank pain, genital pain MUSCULOSKELETAL: denies myalgia, arthralgia, joint swelling, back pain, neck pain SKIN: endorses itching below surgical site, and further endorses pallor of left foot HEMATOLOGIC/IMMUNOLOGIC: denies easy bleeding, easy bruising, lymphadenopathy, frequent infections ENDOCRINE: denies unexplained weight gain, unexplained weight loss, heat intolerance, cold intolerance NEUROLOGIC: denies headache, focal weakness or paresthesias, dizziness, unsteady gait, seizure, mental status changes, bladder or bowel incontinence PSYCHIATRIC: denies depression, suicidal or homicidal ideation, hallucinations. PHYSICAL EXAMINATION Vital Signs - 24 hr 07/01/19 07/01/19 07/01/19 06:28 12:25 12:40 Temperature 98.1 F 97.7 F Pulse Rate 84 80 78 Respiratory 16 11 14 Rate Blood Pressure 114/68 130/72 138/59 L O2 Sat by Pulse 98 98 97 Oximetry (%) 07/01/19 07/01/19 07/01/19 12:55 13:10 13:25 Temperature Pulse Rate 78 77 76 Respiratory 19 17 15 Rate Blood Pressure 122/65 129/65 129/68 O2 Sat by Pulse 100 100 100 Oximetry (%) 07/01/19 07/01/19 07/01/19 13:40 13:55 14:04 Temperature Pulse Rate 74 76 82 Respiratory 12 11 12 Rate Blood Pressure 135/69 129/70 131/67 O2 Sat by Pulse 100 100 100 Oximetry (%) 07/01/19 07/01/1920 14:10 14:25 14:30 Temperature Pulse Rate 78 77 76 Respiratory 15 17 18 Rate Blood Pressure 131/67 132/69 129/68 O2 Sat by Pulse 100 98 100 Oximetry (%) 07/01/19 07/01/19 07/01/19 14:40 14:52 14:54 Temperature 97.8 F Pulse Rate 80 93 H 93 H Respiratory 15 15 16 Rate Blood Pressure 126/70 115/72 115/72 O2 Sat by Pulse 99 100 99 Oximetry (%) 07/01/19 07/01/19 15:15 15:36 Temperature 97.8 F Pulse Rate 80 81 Respiratory 14 18 Rate Blood Pressure 115/70 108/70 O2 Sat by Pulse Oximetry (%) GENERAL: Awake, alert, and fully oriented, in no acute distress. HEAD: Normal with no signs of trauma. EYES: Pupils equal, round and reactive to light, extraocular movements intact, sclera anicteric, conjunctiva clear. No lid lag. EARS, NOSE, THROAT: Ears normal, nares patent, oropharynx clear without exudates. Moist mucous membranes. NECK: Normal range of motion, supple without lymphadenopathy, JVD, or masses. LUNGS: Breath sounds equal, clear to auscultation bilaterally. No wheezes, and no crackles. No accessory muscle use. HEART: Regular rate and rhythm, normal S1 and S2 without murmur, rub or gallop. ABDOMEN: Soft, nontender, not distended, normoactive bowel sounds, no guarding, no rebound, no masses. MUSCULOSKELETAL: Normal range of motion at all joints. No bony deformities or tenderness. No CVA tenderness. UPPER EXTREMITIES: 2+ pulses, warm, well-perfused. No cyanosis. No clubbing. Cap refill <2 seconds. No peripheral edema. LOWER EXTREMITIES: Non-palpable and non-dopplerable pulses at PT and DP of right and left foot. Right and left foot both cold to the ankle. Left foot with palpable and Dopplerable pulse behind the knee. NEUROLOGICAL: Cranial nerves II-XII intact. Normal speech. Normal gait. Numbness of R foot, milder numbness of left foot. PSYCHIATRIC: Cooperative. Good eye contact. Appropriate mood and affect. SKIN: Warm, dry, normal turgor. [address] on R leg, near hip, on R thigh, on R calf, and on R rooney. Laboratory Results - last 24 hr 07/01/19 07/01/19 07/01/19 12:30 12:30 12:30 WBC 9.3 RBC 4.26 Hgb 11.1 L Hct 34.7 L D MCV 81.6 MCH 26.1 MCHC 32.0 RDW 20.1 H Plt Count 425 D MPV 7.1 L Absolute Neuts (auto) 7.2 Neutrophils % 78.1 D Lymphocytes % 17.5 D Monocytes % 3.2 L Eosinophils % 0.5 Basophils % 0.7 Nucleated RBC % 0 PT with INR 12.30 INR 1.04 PTT (Actin FS) Sodium 138 Potassium 4.6 Chloride 108 H Carbon Dioxide 26 Anion Gap 3 L BUN 22.1 H Creatinine 1.0 Est GFR (CKD-EPI)AfAm 95.06 Est GFR (CKD-EPI)NonAf 82.02 Random Glucose 119 H Calcium 8.7 07/01/19 12:30 WBC RBC Hgb Hct MCV MCH MCHC RDW Plt Count MPV Absolute Neuts (auto) Neutrophils % Lymphocytes % Monocytes % Eosinophils % Basophils % Nucleated RBC % PT with INR INR PTT (Actin FS) 47.8 H Sodium Potassium Chloride Carbon Dioxide Anion Gap BUN Creatinine Est GFR (CKD-EPI)AfAm Est GFR (CKD-EPI)NonAf Random Glucose Calcium Active Medications Generic Name Dose Route Start Last Admin Trade Name Freq PRN Reason Stop Dose Admin Aspirin 81 mg 07/02/19 10:00 Asa - PO DAILY [facility] Atorvastatin Calcium 10 mg 07/01/19 22:00 Lipitor - PO HS [facility] Chlorhexidine Gluconate 1 applic 07/01/19 22:00 Hibiclens For Decolonization - TP HS [facility] Clopidogrel Bisulfate 75 mg 07/02/19 10:00 Plavix - PO DAILY [facility] Dexamethasone Sodium Phosphate 4 mg 07/01/19 13:59 Decadron Injection - IVPUSH ONCE PRN NAUSEA AND/OR VOMITING Diphenhydramine HCl 12.5 mg 07/01/19 13:59 Benadryl Injection - IVPUSH ONCE PRN FOR ITCHING Fentanyl 50 mcg 07/01/19 11:44 07/01/19 13:30 Sublimaze Injection - IVPUSH 50 mcg [id number] PRN Administration PAIN-PACU ORDER X 4 DOSES ONLY Gabapentin 300 mg 07/01/19 14:00 Neurontin - PO TID [facility] Gentamicin Sulfate 1 applic 07/01/19 17:00 Garamycin 0.1% Ointment - TP DAILY [facility] Hydromorphone HCl 10 mg 07/01/19 14:30 Hydromorphone 10 Mg/50 Ml-Ns LUMBER MATERIAL HANDLER 07/08/19 14:29 LUMBER MATERIAL HANDLER [facility] Protocol Lactated Ringer's 1,000 mls @ 125 mls/hr 07/01/19 11:45 Lactated Ringers Solution IV ASDIR [facility] Cefazolin Sodium 1 gm/ 50 mls @ 200 mls/hr 07/01/19 17:00 Dextrose IVPB 07/02/19 01:14 Q8H [facility] Mupirocin 1 applic 07/01/19 22:00 Bactroban Ointment (For Decolonization) - NS 07/06/19 21:59 BID [facility] Ondansetron HCl 4 mg 07/01/19 13:59 Zofran Injection IVPUSH Q4H PRN NAUSEA AND/OR VOMITING Promethazine HCl 12.5 mg 07/01/19 14:19 Phenergan Injection - IVPB Q6H PRN NAUSEA AND/OR VOMITING ASSESSMENT/PLAN: 58 yo M with extensive PVD, s/p R open thrombectomy bypass graft, calf exploration for peroneal artery, angioplasty WIREWORKER, and placement stent proximal bypass on 07/01/2019. Neuro - awake, alert, and oriented - patient with baseline numbness of R foot - milder numbness of L foot - on hydromorphone LUMBER MATERIAL HANDLER, gabapentin 300mg TID - ctm Vascular: - POD#0 s/p R open thrombectomy bypass graft, calf exploration for peroneal artery, angioplasty WIREWORKER, and placement stent proximal bypass - found to have axillofemoral to fem-fem bypass anastomosis, with occlusion of left SFA and reconstitution of above knee popliteal, now POD#0 s/p stenting - non-dopplerable and non-palpable pulses in the R foot - dopplerable and palpable pulses in L foot, warm and well-perfused - ctm Pulm - Cardio - hx HTN, PVD - receiving aspirin and clopidogrel - hx HLD - receiving atorvastatin 10mg - ctm GI: - PRN dexamethasone, Zofran, Benadryl, promethazine for nausea/vomiting - stool for occult blood in the AM - ctm Renal - Heme/Onc: - Hgb 11.1 today after first surgery, repeat is 10.3. - f/u AM CBC recheck - aPTT <50 today, goal is 60-80 due to surgery - PTT >130, heparin held for 1 hour, recheck in the AM - heparin PRN bolus to reach goal - leukocytosis to WBC 16.5 after second surgery - patient on clopidogrel and aspirin - ctm ID: - cefazolin q8hr for first 24 hours post second surgery - afebrile - local chlorhexidine and mupirocin - ctm DVT: - on heparin - ctm F: LR @ 125cc/hr E: Monitor CMP N: NPO post surgery, reassess in the morning Dispo: We will continue to follow the patient. Thank you for this consultative opportunity. Visit type - Emergency Visit Emergency Visit: Yes ED Registration Date: 07/01/19 Care time: The patient presented to the Emergency Department on the above date and was hospitalized for further evaluation of their emergent condition. - New Patient This patient is new to me today: Yes Date on this admission: 07/01/19 - Critical Care Critical Care patient: Yes Total Critical Care Time (in minutes): 30 Critical Care Statement: The care of this patient involved high complexity decision making to prevent further life threatening deterioration of the patient 's condition and/or to evaluate & treat vital organ system(s) failure or risk of failure. ATTENDING PHYSICIAN STATEMENT I saw and evaluated the patient. I reviewed the resident's note and discussed the case with the resident. I agree with the resident's findings and plan as documented. SUBJECTIVE: OBJECTIVE: ASSESSMENT AND PLAN:
[2019-07-01] MEDS ORDERED: CEFAZOLIN 1 GM in DEXTROSE 5%-WATER - 50 ML IVPB SCH (17:00)
[2019-07-01] MEDS ORDERED: GENTAMICIN SO4 0.1% TOPICAL OINTMENT 15 GM/TUBE TUBE TP SCH (17:00)
[2019-07-01] MEDS ORDERED: HEPARIN INFUSION - 25,000 UNITS/500 ML INFUS.BAG IVPB SCH (17:30)
[2019-07-01] MEDS ORDERED: DEXTROSE 5%-WATER - 50 ML IVPB ONE (17:34)
--- NOTE | 2019-07-01 17:42 | PN ---
Progress Note (short form) - Note Progress Note: Operative findings discussed with Guillermo. Nurse reports difficulty finding pulse in left foot. Duplex exam of ax-fem and fem-fem grafts show they ar now occluded as well. CBC has normal platelet count. no evidence for HIT. Will return to OR for graft thrombectomy. Surgical plans reviewed with patient. Problem List - Problems (1) Arterial occlusion, lower extremity Code(s): I70.209 - UNSP ATHSCL [place] ARTERIES OF EXTREMITIES, UNSP EXTREMITY
[2019-07-01] MEDS ORDERED: LIDOCAINE HCL 1%, 10 MG/ML (20ML VIAL) ONE (18:22)
[2019-07-01] MEDS ORDERED: POVIDONE-IODINE OINTMENT 10% - 28.4 GM TUBE ONE (19:10)
[2019-07-01] MEDS ORDERED: THROMBIN (BOVINE) 5,000 UNIT VIAL TP ONE ×2 (20:00→20:02)
[2019-07-01] MEDS ORDERED: GELATIN, ABSORBABLE 100 EACH SPONGE TP ONE (20:00)
[2019-07-01] MEDS ORDERED: SUCCINYLCHOLINE CHLORIDE 200 MG/10 ML SYRINGE ONE (21:40)
[2019-07-01] MEDS ORDERED: METOPROLOL TARTRATE 5 MG/5 ML VIAL ONE (21:57)
[2019-07-01] MEDS ORDERED: MUPIROCIN 2% TOPICAL OINTMENT FOR DECOLONIZATION NS SCH (22:00)
[2019-07-01] MEDS ORDERED: CHLORHEXIDINE GLUCONATE 4% CLEANSER FOR DECOLONIZATION TP SCH (22:00)
[2019-07-01] MEDS ORDERED: ATORVASTATIN CA 10 MG TABLET (FP) PO SCH (22:00)
[2019-07-01] MEDS ORDERED: POVIDONE-IODINE OINTMENT 10% - 28.4 GM TUBE TP ONE (22:37)
--- NOTE | 2019-07-01 22:45 | OP ---
Operative Note - Note: Operative Date: 07/01/19 Pre-Operative Diagnosis: Thrombosis of axillo-femoral and femoral-femoral bypass Operation: Open thrombectomy multiple bypasses. Angioplasty and stenting left SFA Findings: Chronic thrombus occluding axillofemoral to fem-fem bypass anastomosis. Occlusion left SFA with reconstitution of above knee popliteal. Implants: 6 x 200, 6 x 100 LifeStent Post-Operative Diagnosis: Same as Pre-op Surgeon: Carlos Stoner Tire Wrapper: Leah Robertson Anesthesiologist/DOCTOR CHIROPRACTIC: Chauncey Beckham Anesthesia: General Estimated Blood Loss (mls): 400
[2019-07-01] MEDS: HEPARIN INFUSION - 25,000 UNITS/500 ML INFUS.BAG IV SCH (23:00)
[2019-07-01] MEDS: HYDROmorphone *PCA* 10MG/50ML DISP.SYRIN PCA SCH (23:48)
[2019-07-02 00:17] LABS: BASO % 0.3 % (0-2.0); HEMATOCRIT 32.3 % (35.4-49); HEMOGLOBIN 10.3 GM/dL (11.7-16.9); LYMPH % 7.7 % (8-40); MCH 26.1 pg (25.7-33.7); MEAN CELL VOLUME 81.5 fl (80-96); MEAN PLT VOLUME 7.1 fl (7.5-11.1); MONO % 4.2 % (3.8-10.2); NEUT % 87.8 % (42.8-82.8); PLATELET COUNT 407 K/MM3 (134-434); RBC 3.96 M/mm3 (4.00-5.60); RDW 19.6 % (11.9-15.9); WHITE BLOOD COUNT 16.5 K/mm3 (4.0-10.0)
[2019-07-02] MEDS: CEFAZOLIN 1 GM in DEXTROSE 5%-WATER - 50 ML IVPB SCH ×3 (05:48→17:29)
[2019-07-02] MEDS: GABAPENTIN 300 MG CAPSULE PO SCH ×3 (05:51→21:35)
[2019-07-02 07:25] LABS: BASO % 0.2 % (0-2.0); BLOOD UREA NITROGEN 14.3 mg/dL (7-18); CALCIUM 8.5 mg/dL (8.5-10.1); HEMATOCRIT 29.4 % (35.4-49); HEMOGLOBIN 9.4 GM/dL (11.7-16.9); LYMPH % 16.4 % (8-40); MCH 26.1 pg (25.7-33.7); MCHC 31.8 g/dl (32.0-35.9); MEAN CELL VOLUME 82.1 fl (80-96); MEAN PLT VOLUME 7.4 fl (7.5-11.1); MONO % 8.5 % (3.8-10.2); NEUT % 74.9 % (42.8-82.8); PLATELET COUNT 384 K/MM3 (134-434); POTASSIUM 4.7 mmol/L (3.5-5.1); RBC 3.58 M/mm3 (4.00-5.60); WHITE BLOOD COUNT 14.1 K/mm3 (4.0-10.0)
[2019-07-02] MEDS: GENTAMICIN SO4 0.1% TOPICAL OINTMENT 15 GM/TUBE TUBE TP SCH (08:00)
--- NOTE | 2019-07-02 08:08 | PN ---
Progress Note (short form) - Note Progress Note: Anesthesia/pain Pt seen and examined S:Alert and awake, comfortable O; Vital Signs Temperature 97.8 F 07/02/19 06:00 Pulse Rate 79 07/02/19 06:00 Respiratory Rate 16 07/02/19 06:00 Blood Pressure 102/69 07/02/19 06:00 O2 Sat by Pulse Oximetry (%) 89 L 07/02/19 02:31 CBC, BMP 07/02/19 05:26 07/02/19 05:26 A/P s/p Thrombectomy s/p bypass RLE Doing well post op Continue TRIM SAWYER Continue current care Salvatore Manuel MD
--- NOTE | 2019-07-02 08:37 | PN ---
Progress Note (short form) - Note Progress Note: POD 1 Feet warm, right toes cool Doppler PT right, DP and PT left Wounds with bloody drainage Hgb 9.4 Stable overnight, right foot remains questionable. Continue IV Heparin OOB Problem List - Problems (1) Arterial occlusion, lower extremity Code(s): I70.209 - UNSP ATHSCL [place] ARTERIES OF EXTREMITIES, UNSP EXTREMITY
[2019-07-02] MEDS: CLOPIDOGREL BISULFATE 75 MG TABLET (FP) PO SCH (10:00)
[2019-07-02] MEDS ORDERED: CLOPIDOGREL BISULFATE 75 MG TABLET (FP) PO SCH (10:00)
[2019-07-02] MEDS ORDERED: MUPIROCIN 2% TOPICAL OINTMENT FOR DECOLONIZATION NS SCH (10:00)
[2019-07-02] MEDS ORDERED: ASPIRIN 81 MG CHEWABLE TABLETS PO SCH (10:00)
[2019-07-02] MEDS: ASPIRIN 81 MG CHEWABLE TABLETS PO SCH (10:00)
[2019-07-02] MEDS ORDERED: PT OWN MED DRAWER 7, Y5N ONE (10:02)
[2019-07-02] MEDS ORDERED: ceFAZolin SODIUM 1 GM VIAL ONE ×2 (10:02→17:23)
[2019-07-02] MEDS ORDERED: DEXTROSE 5%-WATER - 50 ML IVPB ONE ×2 (10:02→17:23)
[2019-07-02] MEDS: MUPIROCIN 2% TOPICAL OINTMENT FOR DECOLONIZATION NS SCH ×2 (10:05→21:35)
--- NOTE | 2019-07-02 10:08 | PN ---
Progress Note (short form) - Note Progress Note: POD#[address] Stoner this am, all dressing changed. Inc c/d/i with levy. Right lateral wound with a small amount of ecchymosis. Raymundo catheter removed for TOV. Elevated right leg on a pillow.
--- NOTE | 2019-07-02 10:34 | PN ---
Physical Exam: SUBJECTIVE: Patient seen and examined. Post op day #1. Patient tolerating PO diet. C/o numbness to R foot. Extremities warm b/l this morning. Pham removed, trial of void today. All dressings changed this morning by surgical team. OBJECTIVE: Vital Signs Period Temp Pulse Resp BP Sys/White Pulse Ox Last 24 Hr 97.6 F-98 F 74-105 8-19 88-138/59-74 89-100 GENERAL: AOx3. NAD. Lying in bed. HEENT: NCAT. Clear sclera. MMM. LUNGS: CTABL no incr work of breathing. HEART: Regular rate and rhythm, S1, S2 without murmur, rub or gallop. ABDOMEN: Soft NTND +BS UPPER EXTR: 2+ pulses b/l, warm, well perfused. No edema noted. LOWER EXTR: Warm extremities b/l, slightly cool R toes. B/l popliteal pulse palpable & clearly audible w/ doppler. Diminished pulses b/l post tibialis & dorsalis pedis; b/l PT and left DP clearly audible w/ doppler; right DP soft but audible. NEUROLOGICAL: Cranial nerves II through XII grossly intact. Normal speech. Gait not observed. + numbness to R foot. Sensation intact b/l LEs. Unable to wiggle toes or extend legs at the hip due to pain w/ movement. Patient c/o tenderness w / light palpation of RLE graft site. Site is c/d/i no signs of infection. PSYCH: Normal mood, normal affect. SKIN: R groin wound, RLE anterior thigh wound, chronic from prior procedures. Laboratory Results - last 24 hr 07/01/19 07/01/19 07/01/19 12:30 12:30 12:30 WBC 9.3 RBC 4.26 Hgb 11.1 L Hct 34.7 L D MCV 81.6 MCH 26.1 MCHC 32.0 RDW 20.1 H Plt Count 425 D MPV 7.1 L Absolute Neuts (auto) 7.2 Neutrophils % 78.1 D Lymphocytes % 17.5 D Monocytes % 3.2 L Eosinophils % 0.5 Basophils % 0.7 Nucleated RBC % 0 PT with INR 12.30 INR 1.04 PTT (Actin FS) Sodium 138 Potassium 4.6 Chloride 108 H Carbon Dioxide 26 Anion Gap 3 L BUN 22.1 H Creatinine 1.0 Est GFR (CKD-EPI)AfAm 95.06 Est GFR (CKD-EPI)NonAf 82.02 Random Glucose 119 H Calcium 8.7 07/01/19 07/02/19 07/02/19 12:30 00:00 00:00 WBC 16.5 H RBC 3.96 L Hgb 10.3 L Hct 32.3 L MCV 81.5 MCH 26.1 MCHC 32.0 RDW 19.6 H Plt Count 407 MPV 7.1 L Absolute Neuts (auto) 14.5 H Neutrophils % 87.8 H Lymphocytes % 7.7 L D Monocytes % 4.2 Eosinophils % 0.0 D Basophils % 0.3 Nucleated RBC % 0 PT with INR INR PTT (Actin FS) 47.8 H 131.3 H Sodium Potassium Chloride Carbon Dioxide Anion Gap BUN Creatinine Est GFR (CKD-EPI)AfAm Est GFR (CKD-EPI)NonAf Random Glucose Calcium 07/02/19 07/02/19 07/02/19 05:26 05:26 05:26 WBC 14.1 H RBC 3.58 L Hgb 9.4 L Hct 29.4 L MCV 82.1 MCH 26.1 MCHC 31.8 L RDW 20.0 H Plt Count 384 MPV 7.4 L Absolute Neuts (auto) 10.5 H Neutrophils % 74.9 Lymphocytes % 16.4 D Monocytes % 8.5 D Eosinophils % 0.0 Basophils % 0.2 Nucleated RBC % 0 PT with INR INR PTT (Actin FS) 49.5 H Sodium 140 Potassium 4.7 Chloride 106 Carbon Dioxide 29 Anion Gap 5 L BUN 14.3 Creatinine 1.0 Est GFR (CKD-EPI)AfAm 95.06 Est GFR (CKD-EPI)NonAf 82.02 Random Glucose 127 H Calcium 8.5 Active Medications Generic Name Dose Route Start Last Admin Trade Name Freq PRN Reason Stop Dose Admin Aspirin 81 mg 07/02/19 10:00 07/02/19 10:00 Asa - PO 81 mg DAILY [facility] Administration Atorvastatin Calcium 10 mg 07/02/19 22:00 Lipitor - PO HS [facility] Chlorhexidine Gluconate 1 applic 07/02/19 22:00 Hibiclens For Decolonization - TP HS [facility] Clopidogrel Bisulfate 75 mg 07/02/19 10:00 07/02/19 10:00 Plavix - PO 75 mg DAILY [facility] Administration Dexamethasone Sodium Phosphate 4 mg 07/01/19 23:43 Decadron Injection - IVPUSH ONCE PRN NAUSEA AND/OR VOMITING Diphenhydramine HCl 12.5 mg 07/01/19 23:43 Benadryl Injection - IVPUSH ONCE PRN FOR ITCHING Gabapentin 300 mg 07/02/19 06:00 07/02/19 05:51 Neurontin - PO 300 mg TID [facility] Administration Gentamicin Sulfate 1 applic 07/02/19 10:00 Garamycin 0.1% Ointment - TP DAILY [facility] Heparin Sodium (Porcine) 1,000 unit 07/01/19 23:32 Heparin - IVPUSH PRN PRN Heparin Heparin Sodium (Porcine) 5,000 unit 07/01/19 23:32 Heparin - IVPUSH PRN PRN Heparin Hydromorphone HCl 10 mg 07/01/19 23:43 07/01/19 23:48 Hydromorphone 10 Mg/50 Ml-Ns LICENSED NUCLEAR OPERATOR 07/08/19 14:29 Not Given LICENSED NUCLEAR OPERATOR [facility] Protocol Cefazolin Sodium 1 gm/ 50 mls @ 100 mls/hr 07/02/19 06:00 07/02/19 10:04 Dextrose IVPB 07/03/19 05:59 100 mls/hr Q8H-IV [facility] Administration Heparin Sodium/Dextrose 25,000 units in 500 mls @ 20 mls/hr 07/01/19 23:45 02:30 Heparin Infusion - IV 850 units/hr TITR [facility] 17 mls/hr Titration Protocol 1,000 UNITS/HR Lactated Ringer's 1,000 mls @ 125 mls/hr 07/01/19 23:43 07/01/19 23:48 Lactated Ringers Solution IV Not Given ASDIR [facility] Mupirocin 1 applic 07/02/19 10:00 07/02/19 10:05 Bactroban Ointment (For Decolonization) - NS 07/07/19 09:59 1 applic BID [facility] Administration Ondansetron HCl 4 mg 07/01/19 23:43 Zofran Injection IVPUSH Q4H PRN NAUSEA AND/OR VOMITING Promethazine HCl 12.5 mg 07/01/19 23:43 Phenergan Injection - IVPB Q6H PRN NAUSEA AND/OR VOMITING ASSESSMENT/PLAN: 58 y.o. M PMH HTN, HLD, extensive PVD s/p 29 RLE and 30 LLE vascular procedures (within 2 year span) presenting as a vascular surgery post-op (POD#1) s/p right lower extremity open thrombectomy bypass graft, exploration of calf for peroneal artery, angioplasty ASSOCIATE [employer]LE [employer], stent placement proximal bypass with subsequent secondary procedure of LLE w/ open thrombectomy & multiple bypasses, angioplasty & stenting of the left SFA. #ROTARY CUTTER -AOx3 -RLE numbness of foot today -pain controlled w/ hydromorphone 10mg LICENSED NUCLEAR OPERATOR pump, gabapentin 300mg PO TID #Vascular -POD#1 s/p RLE open thrombectomy, angioplasty & stent placement -Second procedure also POD#1 for LLE thrombectomy of axillo-femoral and femoral- femoral bypass, angioplasty w/ stenting -Today patient has audible pulses on doppler although diminished RLE DP -continue to assess pulses w/ doppler -B/l LE's warm to touch, rt toes slightly cool to touch -Continuing heparin gtt #Cardio -Hx HTN, PVD -continuing asa, plavix 75mg daily -lipitor 10mg daily for HLD #Pulm -Saturating 98% on RA -continue incentive spirometer use -no acute issues #GI -prn phenergan, zofran for nausea -continue to monitor #Heme/onc -EBL 600cc total after both procedures -hgb 9.4 today; monitor cbc -PTT supratherapeutic yesterday; heparin was held x1hour, repeat ptt 49.5-- heparin gtt restarted #ID -cefazolin 1g iv q8h for 24 hrs post op -continue to monitor vitals, patient afebrile -leukocytosis downtrending, now 14 #FENLTD -LR @125cc/hr -trend lytes replete prn -low sodium, tolerating -peripheral iv -pham removed today; TOV #PPX -heparin drip Visit type - Emergency Visit Emergency Visit: No - New Patient This patient is new to me today: Yes Date on this admission: 07/02/19 - Critical Care Critical Care patient: Yes Total Critical Care Time (in minutes): 45 Critical Care Statement: The care of this patient involved high complexity decision making to prevent further life threatening deterioration of the patient 's condition and/or to evaluate & treat vital organ system(s) failure or risk of failure. ATTENDING PHYSICIAN STATEMENT I saw and evaluated the patient. I reviewed the resident's note and discussed the case with the resident. I agree with the resident's findings and plan as documented. SUBJECTIVE: OBJECTIVE: ASSESSMENT AND PLAN:
--- NOTE | 2019-07-02 11:17 | PN ---
Teaching Attending Note Name of Resident: Fernanda Jimenez ATTENDING PHYSICIAN STATEMENT I saw and evaluated the patient. I reviewed the resident's note and discussed the case with the resident. I agree with the resident's findings and plan as documented. SUBJECTIVE: Patient seen and examined in the ICU. Awake and alert. Pain seems adequately controlled. No CP or SOB. Intake & Output 06/29/19 06/30/19 07/01/19 07/02/19 23:59 23:59 23:59 23:59 Intake Total 4190 1095 Output Total 2300 700 Balance 1890 395 Weight 160 lb Last Vital Signs Temp Pulse Resp BP Pulse Ox 97.8 F 77 16 105/63 89 L 07/02/19 06:00 07/02/19 08:00 07/02/19 08:00 07/02/19 08:00 07/02/19 02:31 Active Medications Aspirin (Asa -) 81 mg PO DAILY [facility] Last Admin: 07/02/19 10:00 Dose: 81 mg Atorvastatin Calcium (Lipitor -) 10 mg PO HS [facility] Chlorhexidine Gluconate (Hibiclens For Decolonization -) 1 applic TP HS [facility] Clopidogrel Bisulfate (Plavix -) 75 mg PO DAILY [facility] Last Admin: 07/02/19 10:00 Dose: 75 mg Dexamethasone Sodium Phosphate (Decadron Injection -) 4 mg IVPUSH ONCE PRN PRN Reason: NAUSEA AND/OR VOMITING Diphenhydramine HCl (Benadryl Injection -) 12.5 mg IVPUSH ONCE PRN PRN Reason: FOR ITCHING Gabapentin (Neurontin -) 300 mg PO TID [facility] Last Admin: 07/02/19 05:51 Dose: 300 mg Gentamicin Sulfate (Garamycin 0.1% Ointment -) 1 applic TP DAILY [facility] Heparin Sodium (Porcine) (Heparin -) 1,000 unit IVPUSH PRN PRN PRN Reason: Heparin Heparin Sodium (Porcine) (Heparin -) 5,000 unit IVPUSH PRN PRN PRN Reason: Heparin Hydromorphone HCl (Hydromorphone 10 Mg/50 Ml-Ns) 10 mg 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 [facility]; Protocol Stop: 07/08/19 14:29 Last Admin: 07/01/19 23:48 Dose: Not Given Cefazolin Sodium 1 gm/ (Dextrose) 50 mls @ 100 mls/hr IVPB Q8H-IV [facility] Stop: 07/03/19 05:59 Last Admin: 07/02/19 10:04 Dose: 100 mls/hr Heparin Sodium/Dextrose (Heparin Infusion -) 25,000 units in 500 mls @ 20 mls/ hr IV TITR [facility]; Protocol Last Titration: 07/02/19 02:30 Dose: 850 units/hr, 17 mls/hr Lactated Ringer's (Lactated Ringers Solution) 1,000 mls @ 125 mls/hr IV ASDIR [facility] Last Admin: 07/01/19 23:48 Dose: Not Given Mupirocin (Bactroban Ointment (For Decolonization) -) 1 applic NS BID [facility] Stop: 07/07/19 09:59 Last Admin: 07/02/19 10:05 Dose: 1 applic Ondansetron HCl (Zofran Injection) 4 mg IVPUSH Q4H PRN PRN Reason: NAUSEA AND/OR VOMITING Promethazine HCl (Phenergan Injection -) 12.5 mg IVPB Q6H PRN PRN Reason: NAUSEA AND/OR VOMITING GENERAL: Awake, alert, and fully oriented, in no acute distress. HEAD: Normal with no signs of trauma. EYES: Pupils equal, round and reactive to light, extraocular movements intact, sclera anicteric, conjunctiva clear. No lid lag. EARS, NOSE, THROAT: Ears normal, nares patent, oropharynx clear without exudates. Moist mucous membranes. NECK: Normal range of motion, supple without lymphadenopathy, JVD, or masses. LUNGS: Breath sounds equal, clear to auscultation bilaterally. No wheezes, and no crackles. No accessory muscle use. HEART: Regular rate and rhythm, normal S1 and S2 without murmur, rub or gallop. ABDOMEN: Soft, nontender, not distended, normoactive bowel sounds, no guarding, no rebound, no masses. MUSCULOSKELETAL: Normal range of motion at all joints. No bony deformities or tenderness. No CVA tenderness. UPPER EXTREMITIES: 2+ pulses, warm, well-perfused. No cyanosis. No clubbing. Cap refill <2 seconds. No peripheral edema. LOWER EXTREMITIES: Doppler PT right, DP and PT left. NEUROLOGICAL: Non-focal. PSYCHIATRIC: Cooperative. Good eye contact. Appropriate mood and affect. SKIN: Warm, dry, normal turgor. [address] on R leg, near hip, on R thigh, on R calf, and on R rooney. Laboratory Results - last 24 hr 07/01/19 07/01/19 07/01/19 12:30 12:30 12:30 WBC 9.3 RBC 4.26 Hgb 11.1 L Hct 34.7 L D MCV 81.6 MCH 26.1 MCHC 32.0 RDW 20.1 H Plt Count 425 D MPV 7.1 L Absolute Neuts (auto) 7.2 Neutrophils % 78.1 D Lymphocytes % 17.5 D Monocytes % 3.2 L Eosinophils % 0.5 Basophils % 0.7 Nucleated RBC % 0 PT with INR 12.30 INR 1.04 PTT (Actin FS) Sodium 138 Potassium 4.6 Chloride 108 H Carbon Dioxide 26 Anion Gap 3 L BUN 22.1 H Creatinine 1.0 Est GFR (CKD-EPI)AfAm 95.06 Est GFR (CKD-EPI)NonAf 82.02 Random Glucose 119 H Calcium 8.7 07/01/19 07/02/19 07/02/19 12:30 00:00 00:00 WBC 16.5 H RBC 3.96 L Hgb 10.3 L Hct 32.3 L MCV 81.5 MCH 26.1 MCHC 32.0 RDW 19.6 H Plt Count 407 MPV 7.1 L Absolute Neuts (auto) 14.5 H Neutrophils % 87.8 H Lymphocytes % 7.7 L D Monocytes % 4.2 Eosinophils % 0.0 D Basophils % 0.3 Nucleated RBC % 0 PT with INR INR PTT (Actin FS) 47.8 H 131.3 H Sodium Potassium Chloride Carbon Dioxide Anion Gap BUN Creatinine Est GFR (CKD-EPI)AfAm Est GFR (CKD-EPI)NonAf Random Glucose Calcium 07/02/19 07/02/19 07/02/19 05:26 05:26 05:26 WBC 14.1 H RBC 3.58 L Hgb 9.4 L Hct 29.4 L MCV 82.1 MCH 26.1 MCHC 31.8 L RDW 20.0 H Plt Count 384 MPV 7.4 L Absolute Neuts (auto) 10.5 H Neutrophils % 74.9 Lymphocytes % 16.4 D Monocytes % 8.5 D Eosinophils % 0.0 Basophils % 0.2 Nucleated RBC % 0 PT with INR INR PTT (Actin FS) 49.5 H Sodium 140 Potassium 4.7 Chloride 106 Carbon Dioxide 29 Anion Gap 5 L BUN 14.3 Creatinine 1.0 Est GFR (CKD-EPI)AfAm 95.06 Est GFR (CKD-EPI)NonAf 82.02 Random Glucose 127 H Calcium 8.5 ASSESSMENT/PLAN: POD #1: S/P Right open thrombectomy bypass graft, calf exploration for peroneal artery, 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
[2019-07-02] MEDS ORDERED: CHLORHEXIDINE GLUCONATE 4% CLEANSER FOR DECOLONIZATION TP SCH ×2 (22:00)
[2019-07-02] MEDS ORDERED: ATORVASTATIN CA 10 MG TABLET (FP) PO SCH (22:00)
[2019-07-03] MEDS ORDERED: PT OWN MED DRAWER 7, Y5N ONE ×3 (02:12→22:13)
[2019-07-03] MEDS: HYDROmorphone *PCA* 10MG/50ML DISP.SYRIN PCA SCH (02:33)
[2019-07-03] MEDS ORDERED: ceFAZolin SODIUM 1 GM VIAL ONE (02:33)
[2019-07-03] MEDS ORDERED: DEXTROSE 5%-WATER - 50 ML IVPB ONE (02:33)
[2019-07-03] MEDS: HEPARIN INFUSION - 25,000 UNITS/500 ML INFUS.BAG IV SCH (02:35)
[2019-07-03] MEDS: CEFAZOLIN 1 GM in DEXTROSE 5%-WATER - 50 ML IVPB SCH (02:36)
[2019-07-03] MEDS: GABAPENTIN 300 MG CAPSULE PO SCH ×3 (05:39→22:41)
[2019-07-03 07:21] LABS: BASO % 0.7 % (0-2.0); EOS % 0.5 % (0-4.5); HEMATOCRIT 24.1 % (35.4-49); HEMOGLOBIN 7.8 GM/dL (11.7-16.9); LYMPH % 29.5 % (8-40); MCH 26.6 pg (25.7-33.7); MCHC 32.5 g/dl (32.0-35.9); MEAN CELL VOLUME 82.1 fl (80-96); MEAN PLT VOLUME 7.2 fl (7.5-11.1); MONO % 8.4 % (3.8-10.2); NEUT % 60.9 % (42.8-82.8); PLATELET COUNT 327 K/MM3 (134-434); RBC 2.94 M/mm3 (4.00-5.60); RDW 20.2 % (11.9-15.9); WHITE BLOOD COUNT 10.1 K/mm3 (4.0-10.0)
[2019-07-03 08:56] LABS: ALBUMIN 2.7 g/dl (3.4-5.0); BILIRUBIN,TOTAL 0.2 mg/dL (0.2-1); BLOOD UREA NITROGEN 16.5 mg/dL (7-18); CALCIUM 8.2 mg/dL (8.5-10.1); MAGNESIUM 2.1 mg/dL (1.8-2.4); PHOSPHOROUS 2.5 mg/dL (2.5-4.9); TOT PROT 5.6 g/dl (6.4-8.2)
--- NOTE | 2019-07-03 09:54 | PN ---
Progress Note (short form) - Note Progress Note: POD 2 Pain the same VSS Feet warmer. 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 Problem List - Problems (1) Arterial occlusion, lower extremity Code(s): I70.209 - UNSP ATHSCL [place] ARTERIES OF EXTREMITIES, UNSP EXTREMITY
--- NOTE | 2019-07-03 10:06 | PN ---
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
[2019-07-03] MEDS: CLOPIDOGREL BISULFATE 75 MG TABLET (FP) PO SCH (10:18)
[2019-07-03] MEDS: ASPIRIN 81 MG CHEWABLE TABLETS PO SCH (10:18)
[2019-07-03] MEDS: HYDROmorphone HCl 2 MG/ML VIAL IM PRN ×3 (10:30→16:23)
[2019-07-03] MEDS: MUPIROCIN 2% TOPICAL OINTMENT FOR DECOLONIZATION NS SCH (11:06)
[2019-07-03] MEDS: GENTAMICIN SO4 0.1% TOPICAL OINTMENT 15 GM/TUBE TUBE TP SCH (11:06)
--- NOTE | 2019-07-03 11:12 | PN ---
Teaching Attending Note Name of Resident: Fernanda Jimenez ATTENDING PHYSICIAN STATEMENT I saw and evaluated the patient. I reviewed the resident's note and discussed the case with the resident. I agree with the resident's findings and plan as documented. SUBJECTIVE: Pt seen and examined in the ICU. Still some right heel pain. No shortness of breath or chest pain. OBJECTIVE: Vital Signs Period Temp Pulse Resp BP Sys/White Pulse Ox Last 24 Hr 98.0 F-99 F 82-107 14-21 96-140/53-70 95-95 Intake & Output 06/30/19 07/01/19 07/02/19 07/03/19 23:59 23:59 23:59 23:59 Intake Total 4190 2219 232 Output Total 2300 1800 Balance 1890 419 232 Weight 72.575 kg Gen: NAD at rest Heart: RRR Lung: decreased breath sounds at the bases Abd: soft, nontender Ext: feet warm to touch L>R CBC, BMP 07/03/19 06:35 07/03/19 06:35 Active Medications Aspirin (Asa -) 81 mg PO DAILY [facility] Last Admin: 07/03/19 10:18 Dose: 81 mg Atorvastatin Calcium (Lipitor -) 10 mg PO HS [facility] Last Admin: 07/02/19 21:35 Dose: 10 mg Chlorhexidine Gluconate (Hibiclens For Decolonization -) 1 applic TP HS [facility] Last Admin: 07/02/19 21:35 Dose: 1 applic Clopidogrel Bisulfate (Plavix -) 75 mg PO DAILY [facility] Last Admin: 07/03/19 10:18 Dose: 75 mg Dexamethasone Sodium Phosphate (Decadron Injection -) 4 mg IVPUSH ONCE PRN PRN Reason: NAUSEA AND/OR VOMITING Diphenhydramine HCl (Benadryl Injection -) 12.5 mg IVPUSH ONCE PRN PRN Reason: FOR ITCHING Enoxaparin Sodium (Lovenox -) 100 mg SQ Q12H [facility] Gabapentin (Neurontin -) 300 mg PO TID [facility] Last Admin: 07/03/19 05:39 Dose: 300 mg Gentamicin Sulfate (Garamycin 0.1% Ointment -) 1 applic TP DAILY [facility] Last Admin: 07/03/19 11:06 Dose: 1 applic Hydromorphone HCl (Dilaudid Vial -) 2 mg IM Q3H PRN PRN Reason: PAIN LEVEL 4 - 6 Last Admin: 07/03/19 10:30 Dose: 2 mg Hydromorphone HCl (Dilaudid Vial -) 4 mg IM Q4H PRN PRN Reason: PAIN LEVEL 7 - 10 Mupirocin (Bactroban Ointment (For Decolonization) -) 1 applic NS BID [facility] Stop: 07/07/19 09:59 Last Admin: 07/03/19 11:06 Dose: 1 applic Ondansetron HCl (Zofran Injection) 4 mg IVPUSH Q4H PRN PRN Reason: NAUSEA AND/OR VOMITING Promethazine HCl (Phenergan Injection -) 12.5 mg IVPB Q6H PRN PRN Reason: NAUSEA AND/OR VOMITING ASSESSMENT AND PLAN: Ischemic Right Foot/Occluded Bypass Occlusion s/p Open Thrombectomy Proximal Bypass Graft/Angioplasty/Stent Placement Thrombosis Axillo-Femoral and Fem-Fem Bypass Graft s/p Open Thrombectomy/Angioplasty/Stent SFA PAD HTN Hyperlipidemia Anemia - pain control - incentive spirometry - pulse checks - continue anticoagulation - ASA, statin - can monitor on floor
[2019-07-03] MEDS: ENOXAPARIN NA (PORCINE) 100 MG/1 ML DISP.SYRIN SQ SCH ×2 (12:10→22:41)
--- NOTE | 2019-07-03 13:46 | PN ---
Physical Exam: SUBJECTIVE: Patient seen and examined. No acute events overnight. POD #2. OBJECTIVE: Vital Signs Period Temp Pulse Resp BP Sys/White Pulse Ox Last 24 Hr 98.0 F-99 F 82-107 14-21 96-140/53-70 95-95 GENERAL: AOx3. NAD. HEENT: NCAT. PERRLA. LUNGS: CTABL no incr work of breathing. HEART: Regular rate and rhythm, S1, S2 without murmur, rub or gallop. ABDOMEN: Soft NTND +BS UPPER EXTR: 2+ pulses b/l, warm, well perfused. No edema noted. LOWER EXTR: Warm extremities b/l. B/l popliteal, post tibial & left DP pulses clearly audible w/ doppler. Right DP diminished. NEUROLOGICAL: Cranial nerves II through XII grossly intact. Some numbness to R foot. Sensation intact b/l LEs. Able to wiggles toes & extend legs b/l at hip. Graft sites c/d/i no signs of infection. PSYCH: Normal mood, normal affect. SKIN: R groin wound, RLE anterior thigh wound, chronic from prior procedures. Laboratory Results - last 24 hr 07/02/19 07/03/19 07/03/19 16:20 00:32 06:35 WBC RBC Hgb Hct MCV MCH MCHC RDW Plt Count MPV Absolute Neuts (auto) Neutrophils % Lymphocytes % Monocytes % Eosinophils % Basophils % Nucleated RBC % PTT (Actin FS) 39.9 H 114.8 H 40.4 H Sodium Potassium Chloride Carbon Dioxide Anion Gap BUN Creatinine Est GFR (CKD-EPI)AfAm Est GFR (CKD-EPI)NonAf Random Glucose Calcium Phosphorus Magnesium Total Bilirubin AST ALT Alkaline Phosphatase Total Protein Albumin 07/03/19 07/03/19 06:35 06:35 WBC 10.1 H RBC 2.94 L Hgb 7.8 L Hct 24.1 L D MCV 82.1 MCH 26.6 MCHC 32.5 RDW 20.2 H Plt Count 327 MPV 7.2 L Absolute Neuts (auto) 6.2 Neutrophils % 60.9 Lymphocytes % 29.5 D Monocytes % 8.4 Eosinophils % 0.5 D Basophils % 0.7 D Nucleated RBC % 0 PTT (Actin FS) Sodium 137 Potassium 4.0 Chloride 103 Carbon Dioxide 29 Anion Gap 5 L BUN 16.5 Creatinine 1.0 Est GFR (CKD-EPI)AfAm 95.06 Est GFR (CKD-EPI)NonAf 82.02 Random Glucose 97 Calcium 8.2 L Phosphorus 2.5 Magnesium 2.1 Total Bilirubin 0.2 AST 55 H ALT 62 H Alkaline Phosphatase 128 H Total Protein 5.6 L Albumin 2.7 L Active Medications Generic Name Dose Route Start Last Admin Trade Name Freq PRN Reason Stop Dose Admin Aspirin 81 mg 07/02/19 10:00 07/03/19 10:18 Asa - PO 81 mg DAILY [facility] Administration Atorvastatin Calcium 10 mg 07/02/19 22:00 07/02/19 21:35 Lipitor - PO 10 mg HS [facility] Administration Chlorhexidine Gluconate 1 applic 07/02/19 22:00 07/02/19 21:35 Hibiclens For Decolonization - TP 1 applic HS [facility] Administration Clopidogrel Bisulfate 75 mg 07/02/19 10:00 07/03/19 10:18 Plavix - PO 75 mg DAILY [facility] Administration Dexamethasone Sodium Phosphate 4 mg 07/01/19 23:43 Decadron Injection - IVPUSH ONCE PRN NAUSEA AND/OR VOMITING Diphenhydramine HCl 12.5 mg 07/01/19 23:43 Benadryl Injection - IVPUSH ONCE PRN FOR ITCHING Enoxaparin Sodium 100 mg 07/03/19 12:00 07/03/19 12:10 Lovenox - SQ 100 mg BID [facility] Administration Gabapentin 300 mg 07/02/19 06:00 07/03/19 05:39 Neurontin - PO 300 mg TID [facility] Administration Gentamicin Sulfate 1 applic 07/02/19 10:00 07/03/19 11:06 Garamycin 0.1% Ointment - TP 1 applic DAILY [facility] Administration Hydromorphone HCl 2 mg 07/03/19 09:56 07/03/19 10:30 Dilaudid Vial - IM 2 mg Q3H PRN Administration PAIN LEVEL 4 - 6 Hydromorphone HCl 4 mg 07/03/19 09:56 Dilaudid Vial - IM Q4H PRN PAIN LEVEL 7 - 10 Mupirocin 1 applic 07/02/19 10:00 07/03/19 11:06 Bactroban Ointment (For Decolonization) - NS 07/07/19 09:59 1 applic BID [facility] Administration Ondansetron HCl 4 mg 07/01/19 23:43 Zofran Injection IVPUSH Q4H PRN NAUSEA AND/OR VOMITING Promethazine HCl 12.5 mg 07/01/19 23:43 Phenergan Injection - IVPB Q6H PRN NAUSEA AND/OR VOMITING ASSESSMENT/PLAN: 58 y.o. 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 Stoner following #Cardio -Hx HTN, PVD, HLD -continuing asa, plavix, lipitor #Pulm -Saturating well on RA -continue using incentive spirometer -no acute issues #GI -prn phenergan, zofran for nausea #Heme/onc -EBL 600cc total after both procedures -hgb 7.4 today; tredn h&h -heparin drip d/c'd #ID -s/p 24hrs cefazolin 1g iv q8h -afebrile -leukocytosis resolved #FENLTD -no standing fluids -trend lytes replete prn -tolerating PO diet -peripheral iv -voiding freely #PPX -LVX 100mg SQ BID Visit type - Emergency Visit Emergency Visit: No - New Patient This patient is new to me today: No - Critical Care Critical Care patient: Yes Total Critical Care Time (in minutes): 45 Critical Care Statement: The care of this patient involved high complexity decision making to prevent further life threatening deterioration of the patient 's condition and/or to evaluate & treat vital organ system(s) failure or risk of failure. ATTENDING PHYSICIAN STATEMENT I saw and evaluated the patient. I reviewed the resident's note and discussed the case with the resident. I agree with the resident's findings and plan as documented. SUBJECTIVE: OBJECTIVE: ASSESSMENT AND PLAN:
[2019-07-03 14:00] LABS: HEMATOCRIT 22.8 % (35.4-49); HEMOGLOBIN 7.4 GM/dL (11.7-16.9); MCH 26.4 pg (25.7-33.7); MCHC 32.5 g/dl (32.0-35.9); MEAN CELL VOLUME 81.2 fl (80-96); MEAN PLT VOLUME 6.9 fl (7.5-11.1); PLATELET COUNT 310 K/MM3 (134-434); RBC 2.81 M/mm3 (4.00-5.60); WHITE BLOOD COUNT 9.7 K/mm3 (4.0-10.0)
[2019-07-03 14:21] LABS: BLOOD UREA NITROGEN 13.9 mg/dL (7-18); CALCIUM 8.2 mg/dL (8.5-10.1); CREATININE 0.9 mg/dL (0.55-1.3); POTASSIUM 3.8 mmol/L (3.5-5.1)
[2019-07-03] MEDS ORDERED: HEPARIN NA (PORCINE) 5,000 UNITS/ML 1ML VIAL IVPUSH PRN ×2 (15:32)
[2019-07-03] MEDS ORDERED: PROMETHAZINE HCL 25 MG/1 ML VIAL IVPB PRN (15:32)
[2019-07-03] MEDS ORDERED: DEXAMETHASONE SOD PHOSPHATE 4 MG/1 ML VIAL IVPUSH PRN (15:32)
[2019-07-03] MEDS ORDERED: ONDANSETRON 4 MG/2 ML VIAL IVPUSH PRN (15:32)
[2019-07-03] MEDS ORDERED: CHLORHEXIDINE GLUCONATE 4% CLEANSER FOR DECOLONIZATION TP SCH (22:00)
[2019-07-03] MEDS ORDERED: MUPIROCIN 2% TOPICAL OINTMENT FOR DECOLONIZATION NS SCH (22:00)
[2019-07-03] MEDS: ATORVASTATIN CA 10 MG TABLET (FP) PO SCH (22:39)
[2019-07-04] MEDS: HYDROmorphone HCl 2 MG/ML VIAL IM PRN ×6 (00:05→20:38)
--- NOTE | 2019-07-04 01:29 | SURG ---
Surgery Dean Of Education Note Dean Of Education: Leah Robertson PA-C Date of Service: 07/01/19 Diagnosis: Thrombosis of axillo-femoral and femoral-femoral bypass Procedure: Thrombosis of axillo-femoral and femoral-femoral bypass I was present for the entirety of the operative procedure. For further detail, please refer to operative report. Visit type - Case Type Case Type: Scheduled - Emergency Emergency Visit: No - New patient This patient is new to me today: No
[2019-07-04] MEDS: GABAPENTIN 300 MG CAPSULE PO SCH ×3 (05:17→22:56)
[2019-07-04] MEDS: ENOXAPARIN NA (PORCINE) 100 MG/1 ML DISP.SYRIN SQ SCH ×2 (09:08→22:55)
[2019-07-04] MEDS: ASPIRIN 81 MG CHEWABLE TABLETS PO SCH (09:08)
[2019-07-04] MEDS: CLOPIDOGREL BISULFATE 75 MG TABLET (FP) PO SCH (09:08)
[2019-07-04 09:37] LABS: BASO % 0.6 % (0-2.0); EOS % 1.1 % (0-4.5); HEMATOCRIT 24.8 % (35.4-49); LYMPH % 24.8 % (8-40); MCH 26.2 pg (25.7-33.7); MCHC 32.5 g/dl (32.0-35.9); MEAN CELL VOLUME 80.7 fl (80-96); MEAN PLT VOLUME 7.2 fl (7.5-11.1); MONO % 7.6 % (3.8-10.2); NEUT % 65.9 % (42.8-82.8); PLATELET COUNT 338 K/MM3 (134-434); RBC 3.07 M/mm3 (4.00-5.60); WHITE BLOOD COUNT 9.5 K/mm3 (4.0-10.0)
[2019-07-04 10:21] LABS: ALBUMIN 2.8 g/dl (3.4-5.0); BILIRUBIN,TOTAL 0.3 mg/dL (0.2-1); BLOOD UREA NITROGEN 13.9 mg/dL (7-18); CALCIUM 8.6 mg/dL (8.5-10.1); CREATININE 0.9 mg/dL (0.55-1.3); MAGNESIUM 2.1 mg/dL (1.8-2.4); PHOSPHOROUS 2.5 mg/dL (2.5-4.9); POTASSIUM 3.8 mmol/L (3.5-5.1); TOT PROT 6.1 g/dl (6.4-8.2)
[2019-07-04] MEDS: GENTAMICIN SO4 0.1% TOPICAL OINTMENT 15 GM/TUBE TUBE TP SCH (16:03)
[2019-07-04] MEDS: ATORVASTATIN CA 10 MG TABLET (FP) PO SCH (22:56)
[2019-07-05] MEDS: HYDROmorphone HCl 2 MG/ML VIAL IM PRN ×6 (01:17→22:11)
[2019-07-05] MEDS: GABAPENTIN 300 MG CAPSULE PO SCH ×3 (05:10→22:11)
[2019-07-05 08:32] LABS: HEMATOCRIT 25.5 % (35.4-49); HEMOGLOBIN 8.2 GM/dL (11.7-16.9); MCH 26.2 pg (25.7-33.7); MCHC 32.2 g/dl (32.0-35.9); MEAN CELL VOLUME 81.5 fl (80-96); MEAN PLT VOLUME 7.2 fl (7.5-11.1); PLATELET COUNT 389 K/MM3 (134-434); RBC 3.13 M/mm3 (4.00-5.60); RDW 19.8 % (11.9-15.9); WHITE BLOOD COUNT 9.6 K/mm3 (4.0-10.0)
--- NOTE | 2019-07-05 09:20 | PN ---
Progress Note (short form) - Note Progress Note: Vascular surgery POD #4 patient seen and examined at bedside with no new complaints. Patient states he still has a lot of pain in right LE around the calf area which is extremely tender to touch. He is tolerating his diet and he denies any CP, SOB, N,v, fever or chills. Vital Signs Temp 98.1 F 07/05/19 06:00 Pulse 77 07/05/19 06:00 Resp 20 07/05/19 06:00 BP 112/53 L 07/05/19 06:00 Pulse Ox 95 07/03/19 09:00 Intake & Output 07/04/19 07/04/19 07/05/19 11:59 23:59 11:59 Intake Total 0 240 120 Output Total 800 Balance 0 -560 120 Intake: IV 0 HEPARIN INFUSION - 25,000 0 units In 500 ml @ 1,000 UNITS/HR 20 mls/hr IV TITR [facility] Rx#:[id number] Oral 240 120 Output: Urine 800 Void 800 Other: Voiding Method Urinal Urinal # Unmeasured Voids Void 1 1 Bowel Movement No No CBC, BMP 07/05/19 08:00 07/04/19 08:39 PE: A&Ox3, NAD Unlabored resp on RA Abdominal dressings c/d/i with surrounding tissue intact and no tracking erythema, Right groin/LE incisions c/d/i with levy in situ, surrounding tissue intact with no tracking erythema, right anterior thigh wound s/p skin graft, healing well with fibrinous tissue, no active d/c or signs of infection. Thigh soft and supple. Right LE compartments soft and supple with TTP throughout appropriate to status, no evidence of hematoma or active drainage. foot warm and well perfused with +signal on doppler over PT, Left LE all compartments soft supple and non-tender with + DP and PT on doppler. foot warm and well perfused. Problem List - Problems (1) Arterial occlusion, lower extremity Assessment/Plan: POD#4 patient remains stable with lower extremities warm to touch. -Continue DVT prophylaxis as ordered -OOB as tolerated -Pain control -Encourage IS -D/c planning for home when ambulating without assistance and no weaned off dilaudid for pain control. Evaluation and plan discussed with Dr Stoner Code(s): I70.209 - UNSP ATHSCL [place] ARTERIES OF EXTREMITIES, UNSP EXTREMITY
[2019-07-05] MEDS: ASPIRIN 81 MG CHEWABLE TABLETS PO SCH (09:48)
[2019-07-05] MEDS: ENOXAPARIN NA (PORCINE) 100 MG/1 ML DISP.SYRIN SQ SCH ×2 (09:48→22:11)
[2019-07-05] MEDS: CLOPIDOGREL BISULFATE 75 MG TABLET (FP) PO SCH (09:48)
[2019-07-05] MEDS: GENTAMICIN SO4 0.1% TOPICAL OINTMENT 15 GM/TUBE TUBE TP SCH (09:49)
--- NOTE | 2019-07-05 14:13 | PATH ---
Surgical Pathology Report Patient Name: ABIGAIL PERLA Med. Rec. #: [id number] /Age/Gender: 1960 (Age: 58) / M Account: [id number] Location: [address] [place] [address]/[facility] Taken: 07/01/2019 Received: 07/02/2019 Reported: 07/05/2019 Physicians: Carlos Stoner M.D. Specimen(s) Received CLOT Clinical History Peripheral vascular disease Final Diagnosis CLOT, THROMBECTOMY: BLOOD (FIBRIN) CLOT/THROMBUS. Electronically Signed Karishma Arias M.D. Gross Description Received in formalin labeled "clot," is a 4.8 x 2.0 x 0.5 cm aggregate of multiple ontiveros brown portion of blood clot and plaque. A tax representative portion is submitted in one cassette. DL/07/02/2019 saudi07/02/2019
[2019-07-05] MEDS: ATORVASTATIN CA 10 MG TABLET (FP) PO SCH (22:11)
[2019-07-06] MEDS: HYDROmorphone HCl 2 MG/ML VIAL IM PRN ×2 (02:04→06:02)
[2019-07-06] MEDS: GABAPENTIN 300 MG CAPSULE PO SCH ×3 (06:02→21:18)
[2019-07-06] MEDS ORDERED: FENTANYL PATCH WASTE MC PRN (08:57)
[2019-07-06] MEDS ORDERED: oxyCODONE HCL 5 MG TABLET PO PRN ×2 (09:00→14:58)
--- NOTE | 2019-07-06 09:18 | PN ---
Progress Note (short form) - Note Progress Note: POD#5 Pt with complaints of pain to the right toes. Vital Signs Period Temp Pulse Resp BP Sys/White Pulse Ox Last 24 Hr 97.6 F-98.2 F 78-92 19-20 106-137/62-82 GEN: A&0x3, NAD CV: RRR Lungs: CTA b/l ABD: soft, nondisteded, non-tender. Inc c/d/i with levy intact. No drainage or erythema. LLE: foot warm with PT/DP pulse. RLE: incision c/d/i with levy. No drainage or erythema. Good pulse with doppler at knee. Weak signal at right PT. CBC, BMP 07/06/19 10:00 07/04/19 08:39 A/P: 58 o male s/p Open thrombectomy bypass graft. Exploration calf for peroneal artery. 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 Placement stent proximal bypass. Open thrombectomy multiple bypasses. Angioplasty and stenting left SFA Pt seen this am. D/w Dr. Stoner the patients care. Will change to oral pain medications/fentanyl patch and discontinue IM dilaudid. Stool softners as needed Local wound care Physical therapy consult Continue aspirin, plavix, loveonx SQ
[2019-07-06 10:19] LABS: HEMATOCRIT 24.7 % (35.4-49); HEMOGLOBIN 8.1 GM/dL (11.7-16.9); MCH 26.6 pg (25.7-33.7); MEAN CELL VOLUME 80.5 fl (80-96); MEAN PLT VOLUME 7.1 fl (7.5-11.1); PLATELET COUNT 406 K/MM3 (134-434); RBC 3.06 M/mm3 (4.00-5.60); RDW 20.1 % (11.9-15.9); WHITE BLOOD COUNT 8.3 K/mm3 (4.0-10.0)
[2019-07-06] MEDS: ENOXAPARIN NA (PORCINE) 100 MG/1 ML DISP.SYRIN SQ SCH ×2 (11:24→21:18)
[2019-07-06] MEDS: CLOPIDOGREL BISULFATE 75 MG TABLET (FP) PO SCH (11:27)
[2019-07-06] MEDS: fentaNYL 25mcg/hr PATCH.TD72 TD SCH (11:28)
[2019-07-06] MEDS: ASPIRIN 81 MG CHEWABLE TABLETS PO SCH (11:28)
[2019-07-06] MEDS: GENTAMICIN SO4 0.1% TOPICAL OINTMENT 15 GM/TUBE TUBE TP SCH (12:55)
[2019-07-06] MEDS: DOCUSATE SODIUM 100 MG CAPSULE (FP) PO SCH ×2 (14:35→21:18)
[2019-07-06] MEDS: ATORVASTATIN CA 10 MG TABLET (FP) PO SCH (21:18)
[2019-07-07] MEDS: GABAPENTIN 300 MG CAPSULE PO SCH ×3 (05:12→21:04)
[2019-07-07] MEDS: DOCUSATE SODIUM 100 MG CAPSULE (FP) PO SCH ×3 (05:12→21:04)
[2019-07-07 09:10] LABS: HEMATOCRIT 24.7 % (35.4-49); HEMOGLOBIN 8.2 GM/dL (11.7-16.9); MCH 26.9 pg (25.7-33.7); MCHC 33.1 g/dl (32.0-35.9); MEAN CELL VOLUME 81.3 fl (80-96); MEAN PLT VOLUME 7.2 fl (7.5-11.1); PLATELET COUNT 507 K/MM3 (134-434); RBC 3.04 M/mm3 (4.00-5.60); RDW 19.8 % (11.9-15.9); WHITE BLOOD COUNT 7.8 K/mm3 (4.0-10.0)
--- NOTE | 2019-07-07 10:50 | PN ---
Progress Note (short form) - Note Progress Note: POD#6 Pt with complaints of pain to the right toes. He doesn't want to take the oxycodone because of constipation. he had a BM yesterday but with a lot of straining. Vital Signs Period Temp Pulse Resp BP Sys/White Pulse Ox Last 24 Hr 97.8 F-98.0 F 80-90 20-20 108-119/59-69 98 GEN: A&0x3, NAD CV: RRR Lungs: CTA b/l ABD: soft, nondisteded, non-tender. Inc c/d/i with levy intact. No drainage or erythema. LLE: foot warm with PT/DP pulse. RLE: incision c/d/i with levy. No drainage or erythema. Good pulse with doppler at knee. Weak signal at right PT. CBC, BMP 07/07/19 08:16 07/04/19 08:39 A/P: 58 o male s/p Open thrombectomy bypass graft. Exploration calf for peroneal artery. 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 Placement stent proximal bypass. Open thrombectomy multiple bypasses. Angioplasty and stenting left SFA Pt ambulated with PT today, having calf pain and toe pain and limiting his ambulation Will change to ultram for pain control Adding miralax for additional stool softners D/w Dr. Stoner
[2019-07-07] MEDS: CLOPIDOGREL BISULFATE 75 MG TABLET (FP) PO SCH (10:55)
[2019-07-07] MEDS: ASPIRIN 81 MG CHEWABLE TABLETS PO SCH (10:55)
[2019-07-07] MEDS: ENOXAPARIN NA (PORCINE) 100 MG/1 ML DISP.SYRIN SQ SCH ×2 (10:55→21:04)
[2019-07-07] MEDS: GENTAMICIN SO4 0.1% TOPICAL OINTMENT 15 GM/TUBE TUBE TP SCH (11:00)
[2019-07-07] MEDS ORDERED: traMADol HCL 50 MG TABLET PO PRN (11:49)
[2019-07-07] MEDS: POLYETHYLENE GLYCOL 3350 119 GM BTL PO SCH (12:32)
[2019-07-07] MEDS ORDERED: BISACODYL 10 MG SUPP.RECT PR ONE (16:26)
[2019-07-07] MEDS ORDERED: SODIUM PHOSPHATE/NA BIPHOS 133 ML ENEMA RC ONE (19:45)
[2019-07-07] MEDS: ATORVASTATIN CA 10 MG TABLET (FP) PO SCH (21:04)
[2019-07-08] MEDS: GABAPENTIN 300 MG CAPSULE PO SCH ×3 (05:05→21:53)
[2019-07-08] MEDS: DOCUSATE SODIUM 100 MG CAPSULE (FP) PO SCH ×3 (05:05→21:53)
[2019-07-08] MEDS: CLOPIDOGREL BISULFATE 75 MG TABLET (FP) PO SCH (09:38)
[2019-07-08] MEDS: ASPIRIN 81 MG CHEWABLE TABLETS PO SCH (09:38)
[2019-07-08 09:39] LABS: HEMATOCRIT 24.8 % (35.4-49); HEMOGLOBIN 8.1 GM/dL (11.7-16.9); MCH 26.2 pg (25.7-33.7); MCHC 32.6 g/dl (32.0-35.9); MEAN CELL VOLUME 80.4 fl (80-96); MEAN PLT VOLUME 7.3 fl (7.5-11.1); PLATELET COUNT 568 K/MM3 (134-434); RBC 3.09 M/mm3 (4.00-5.60); RDW 20.1 % (11.9-15.9); WHITE BLOOD COUNT 7.5 K/mm3 (4.0-10.0)
[2019-07-08] MEDS: GENTAMICIN SO4 0.1% TOPICAL OINTMENT 15 GM/TUBE TUBE TP SCH (09:39)
[2019-07-08] MEDS: ENOXAPARIN NA (PORCINE) 100 MG/1 ML DISP.SYRIN SQ SCH ×2 (09:39→21:53)
[2019-07-08] MEDS: POLYETHYLENE GLYCOL 3350 119 GM BTL PO SCH (09:39)
[2019-07-08] MEDS ORDERED: ACETAMINOPHEN 500 MG TABLET (FP) PO PRN (10:15)
--- NOTE | 2019-07-08 10:21 | PN ---
Progress Note (short form) - Note Progress Note: POD#7 Pt with complaints of pain to the right toes. He had a BM yesterday but with a lot of straining. Vital Signs Period Temp Pulse Resp BP Sys/White Pulse Ox Last 24 Hr 97.3 F-98.0 F 76-88 18-18 111-137/58-84 97-97 GEN: A&0x3, NAD ABD: soft, nondisteded, non-tender. Inc c/d/i with levy intact. No drainage or erythema. LLE: foot warm with PT/DP pulse. RLE: incision c/d/i with levy. No drainage or erythema. Good pulse with doppler at knee. Weak signal at right PT. CBC, BMP 07/08/19 08:41 07/04/19 08:39 A/P: 58 o male s/p Open thrombectomy bypass graft. Exploration calf for peroneal artery. 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 Placement stent proximal bypass. Open thrombectomy multiple bypasses. Angioplasty and stenting left SFA Continue to ambulate with PT and with staff, using rolling walker to assist with ambulation Added tylenol as needed for pain, pt wants to avoid any constipation from narcotics. Continue oral stool softners Continue aspirin/plavix and lovenox 100mg BID for anticogulation therapy D/w Dr. Stoner
[2019-07-08 17:16] VITALS: BMI 23.1
[2019-07-08] MEDS: ATORVASTATIN CA 10 MG TABLET (FP) PO SCH (21:53)
[2019-07-09] MEDS: GABAPENTIN 300 MG CAPSULE PO SCH ×2 (06:24→13:33)
[2019-07-09] MEDS: DOCUSATE SODIUM 100 MG CAPSULE (FP) PO SCH ×2 (06:24→13:33)
--- NOTE | 2019-07-09 09:03 | PN ---
Progress Note (short form) - Note Progress Note: Progress Note: POD#8 Pt with no complaints. He is ambulating with a walker. He still has a significant amount of pain with walking but his pain is controlled with the medication regimen. He denies any new or worsening symptoms. Vital Signs Temp 98.0 F 07/09/19 08:14 Pulse 78 07/09/19 08:14 Resp 14 07/09/19 08:14 BP 108/64 07/09/19 08:14 Pulse Ox 97 07/08/19 21:00 Intake & Output 07/08/19 07/08/19 07/09/19 11:59 23:59 11:59 Intake Total 240 875 Output Total 400 320 Balance 240 475 -320 Weight 160 lb 14.999 oz Intake: Oral 240 875 Output: Urine 400 320 Void 400 320 Other: Voiding Method Urinal Urinal # Unmeasured Voids Void 2 2 Bowel Movement No No # Bowel Movements 1 Height 5 ft 10 in Body Mass Index (BMI) 23.1 CBC, BMP 07/08/19 08:41 07/04/19 08:39 GEN: A&0x3, NAD ABD: soft, nondisteded, non-tender. Inc c/d/i No drainage or erythema. LLE: foot warm and well perfused RLE: incision dressings c/d/i with surrounding tissue intact with no tracking erythema and no evidence of drainage. Problem List - Problems (1) Arterial occlusion, lower extremity Assessment/Plan: A/P: 58 o male s/p Open thrombectomy bypass graft. Exploration calf for peroneal artery. 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 Placement stent proximal bypass. Open thrombectomy multiple bypasses. Angioplasty and stenting left SFA Continue to ambulate with PT and with staff, using rolling walker to assist with ambulation Continue oral stool softners Continue aspirin/plavix and lovenox 100mg BID for anticogulation therapy plan for d/c home with walker Evaluation and plan discussed with Dr Stoner Code(s): I70.209 - UNSP ATHSCL [place] ARTERIES OF EXTREMITIES, UNSP EXTREMITY
[2019-07-09] MEDS: fentaNYL 25mcg/hr PATCH.TD72 TD SCH (09:41)
[2019-07-09] MEDS: GENTAMICIN SO4 0.1% TOPICAL OINTMENT 15 GM/TUBE TUBE TP SCH ×2 (09:42→17:10)
[2019-07-09] MEDS: CLOPIDOGREL BISULFATE 75 MG TABLET (FP) PO SCH (09:46)
[2019-07-09] MEDS: ENOXAPARIN NA (PORCINE) 100 MG/1 ML DISP.SYRIN SQ SCH (09:46)
[2019-07-09] MEDS: ASPIRIN 81 MG CHEWABLE TABLETS PO SCH (09:46)
[2019-07-09] MEDS: POLYETHYLENE GLYCOL 3350 119 GM BTL PO SCH (11:29)
--- NOTE | 2019-07-09 13:58 | OP ---
DATE OF OPERATION: 07/01/2019 SURGEON: Carlos Leung MD HOSPITAL MEDICAL ASSISTANT: JUSTIN Dos Santos PROCEDURES: Open thrombectomy of right femoral tibial bypass. Exploration of right calf. Angioplasty of the posterior tibial artery and bypass graft. Placement of covered stent in the bypass graft. PREOPERATIVE DIAGNOSIS: Ischemic right foot. POSTOPERATIVE DIAGNOSIS: Ischemic right foot with occlusion of femoral tibial bypass graft. ANESTHESIA: General. ANESTHESIA: Chauncey Beckham MD OPERATIVE FINDINGS: The right femoral tibial bypass was occluded. Following thrombectomy, there was return of flow, which was weak. Venogram of the bypass conduit showed area of stenosis in the proximal thigh. The outflow posterior tibial artery was occluded, and no peroneal artery was identified. Following angioplasty, there was return of patent lumen in the posterior tibial artery extending to the plantar artery in the foot. OPERATIVE PROCEDURE: Following routine patient identification with side and site verification, general anesthesia was induced. The right leg was prepped with ChloraPrep. Time-out was performed. An incision was made in the right medial calf extending down through subcutaneous tissues and muscle fascia. The gastrocnemius and soleus muscles were divided along the tibial border and the deep fascial compartment entered. The neurovascular bundle of the peroneal artery was identified, but no adequate artery for bypass could be identified. Attention was then turned to the bypass graft at the level of the knee, which was evaluated with duplex scanning and found to be occluded. It had been patent less than 48 hours prior to surgery. Incision was made over the vein, and it was mobilized and secured with Vessel Loops. The patient was systemically heparinized. A transverse incision was made in the vein and a No. 3 Johnnie catheter passed proximally with return of a small amount of thrombus and pulsatile inflow. The distal bypass was treated with a thrombectomy catheter with return of a small amount of bleeding. A sheath was placed in the vein and an angiogram obtained, which showed occlusion of the posterior tibial artery distal to the anastomosis. A 0.014-inch wire was then advanced into the posterior tibial artery reaching the plantar artery in the foot. A catheter was advanced over the wire and contrast injected to confirm intraluminal placement. The wire was replaced, and the posterior tibial artery was dilated with a long 2.5-mm angioplasty balloon. The proximal end was dilated with a 3-mm balloon. Repeat imaging revealed a patent vessel with improved outflow. The proximal vein graft was checked and was found to be occluded again. Multiple attempts to pass Johnnie catheter proximally returned a small amount of old thrombus, but no significant inflow was seen. Angiogram through the vein showed an area of stenosis between 2 stents in the upper thigh. A 6-mm x 10-cm Viabahn covered stent was then deployed in this area and postdilated with a 6-mm balloon. Repeat imaging revealed a patent lumen with improved inflow. The vessel was filled with heparin solution. The incision and the graft were then closed with interrupted sutures of 7-0 Prolene. Clamps were removed, and the Doppler signal could be heard in the distal calf. Wounds were irrigated and closed using 3-0 Vicryl in subcutaneous tissues and skin levy. Sterile dressings were applied, and the patient was extubated and taken to the recovery room. CARLOS LEUNG M.D. [id number]
--- NOTE | 2019-07-09 14:35 | OP ---
DATE OF OPERATION: 07/01/2019 SURGEON: Carlos Stoner MD TRANSCRIPTION COORDINATOR: JUSTIN Dos Santos PROCEDURE: Open thrombectomy of right axillofemoral and femoral-femoral bypass. Angioplasty and stenting of the left superficial femoral artery. PREOPERATIVE DIAGNOSIS: Thrombosis of axillofemoral and femoral-femoral bypass. POSTOPERATIVE DIAGNOSIS: Thrombosis of axillofemoral and femoral-femoral bypass with occlusion of the left superficial femoral artery. ANESTHESIA: General. ANESTHESIOLOGIST: Chauncey Beckham MD OPERATIVE FINDINGS: There was thrombosis of the axillofemoral and femoral- femoral bypass with old and new thrombus. A large amount of adherent thrombus was present at the juncture of the two grafts in the right upper groin area. The left common femoral artery was patent. The superficial femoral artery was occluded and reconstituted distally above the knee and was re-occluded in the popliteal artery. The right femoral-tibial bypass was occluded, and following thrombectomy, there was return of arterial backbleeding and flow distally. OPERATIVE PROCEDURE: Patient was brought to the operating room. General anesthesia was induced. The lower abdomen, both thighs were prepped with ChloraPrep. Timeout was performed. An incision was made over the bypass graft in the right abdominal wall and the graft was mobilized and secured with vessel loops. Patient was kept on a heparin drip throughout the procedure. A transverse incision was made in the graft and thrombectomy of the proximal inflow was performed with a No. 5 Johnnie catheter with return of pulsatile flow. The graft was occluded with a clamp. The Johnnie catheter was then passed distally to the level of the femoral-femoral bypass with removal of thrombus. It was not possible to adequately remove clot from the femoral- femoral bypass through this approach, so an incision was made over the graft in the midline. The graft was mobilized and secured with vessel loops. A transverse incision was then made. The distal graft was treated with a No. 4 Johnnie catheter with removal of thrombus and return of arterial backbleeding. A sheath was placed in the graft and arteriogram obtained. An angle-tipped wire and catheter were then advanced through the arterial anastomosis and into the superficial femoral artery and distally to the level of the knee. Superficial femoral artery was then dilated with a 6-mm balloon. Residual stenosis was identified, especially in the proximal portion. A 6 x 100 and 6 x 200-mm LifeStent were placed, but the stents did not deploy adequately. There was shortening of both stents and overlap. They were post- dilated with a 6-mm balloon. Repeat imaging showed better flow and the proximal artery was again treated with a 6-mm angioplasty balloon with prolonged inflation. Due to the failure of the stents, decision was made not to place an additional stent in this area. Thrombectomy of the proximal portion of the femoral-femoral bypass was performed with the catheter going up into the axillofemoral graft. The graft incisions were then closed and clamps were removed. Flow into the femoral-femoral graft remained poor, as there was only a weak pulse present. Decision was made to explore the two grafts simultaneously and an incision was then made over the juncture of the two grafts. They were all dissected free. The proximal inflow axillofemoral graft was occluded with a clamp and the femoral-femoral graft with a clamp. An incision was then made longitudinally in the axillofemoral graft at the level of the anastomosis and a large amount of chronic, adherent thrombus was identified and removed successfully. Johnnie was then passed down into the femoral-tibial bypass graft and withdrawn with return of arterial backbleeding. This incision in the graft was then closed with a running suture of No. 5 Prolene. All clamps were then removed and good Doppler signals were heard in both groins. Surgicel was applied to control any bleeding. The wounds were then closed with interrupted suture of 3-0 Vicryl and skin levy. Sterile dressings were applied and the patient was taken to the recovery room in stable condition. José [id number] MTDD
[2019-07-09 18:17] VITALS: BP 124/68; PULSE 77; TEMP 98.2
== END 2019-07-09 18:30 | disposition home or self-care (01) | DRG 253 ==
LOC: JSAMEDAYSX 04:39 → JICU 15:22 → J6S 07-03 13:49
PROVIDERS: ADMIT Surgery; ATTEND Surgery
PROC: 047 Lower Arteries, Dilation (ICD-10-PCS; 2019-07-01)
PROC: 04CK0ZZ Extirpation of Matter from Right Femoral Artery, Open Approach (ICD-10-PCS; 2019-07-01)
PROC: 047 Lower Arteries, Dilation (ICD-10-PCS; 2019-07-01)
PROC: 3E05317 Introduction of Other Thrombolytic into Peripheral Artery, Percutaneous Approach (ICD-10-PCS; 2019-07-01)
PROC: 04CR0ZZ Extirpation of Matter from Right Posterior Tibial Artery, Open Approach (ICD-10-PCS; principal; 2019-07-01 08:00)
PROC: 047 Lower Arteries, Dilation (ICD-10-PCS; 2019-07-01 18:35)
DX: T82.898A Other specified complication of vascular prosthetic devices, implants and grafts, initial encounter (principal); I82.511 Chronic embolism and thrombosis of right femoral vein; I99.8 Other disorder of circulatory system; Y83.2 Surgical operation with anastomosis, bypass or graft as the cause of abnormal reaction of the patient, or of later complication, without mention of misadventure at the time of the procedure; Y92.89 Other specified places as the place of occurrence of the external cause; E78.5 Hyperlipidemia, unspecified; I10 Essential (primary) hypertension; I70.208 Unspecified atherosclerosis of native arteries of extremities, other extremity; I70.701 Unspecified atherosclerosis of other type of bypass graft(s) of the extremities, right leg; D64.9 Anemia, unspecified; D72.829 Elevated white blood cell count, unspecified
CPT/HCPCS: 36415; 76000-TC-FY; 80048; 80053; 83735; 84100; 85025; 85027; 85610; 85730; 88304-TC; 94760; 97116-GP; 97162-GP; J1644

== ENCOUNTER 2019-12-02 11:31 | Inpatient (IN) | payer BC ==
[2019-12-02 11:46] VITALS: BMI 24.3
[2019-12-02] MEDS ORDERED: HEPARIN NA (PORCINE) 5,000 UNITS/ML 1ML VIAL IVPUSH ONE (12:12)
[2019-12-02] MEDS ORDERED: HEPARIN INFUSION - 25,000 UNITS/500 ML INFUS.BAG IVPB SCH (12:15)
[2019-12-02] MEDS ORDERED: HEPARIN NA (PORCINE) 5,000 UNITS/ML 1ML VIAL ONE ×3 (12:22→18:22)
[2019-12-02] MEDS ORDERED: FENTANYL PATCH WASTE TD PRN (12:38)
[2019-12-02] MEDS ORDERED: FENTANYL PATCH WASTE MC PRN (12:38)
[2019-12-02] MEDS ORDERED: ACETAMINOPHEN 500 MG TABLET (FP) PO PRN (12:38)
[2019-12-02] MEDS ORDERED: GABAPENTIN 100 MG CAPSULE ONE (12:44)
[2019-12-02] MEDS ORDERED: fentaNYL 25mcg/hr PATCH.TD72 TD SCH (12:45)
[2019-12-02 12:57] LABS: BASO % 0.7 % (0-2.0); EOS % 1.9 % (0-4.5); HEMATOCRIT 49.7 % (35.4-49); HEMOGLOBIN 16.3 GM/dL (11.7-16.9); LYMPH % 31.2 % (8-40); MCH 30.3 pg (25.7-33.7); MCHC 32.9 g/dl (32.0-35.9); MEAN CELL VOLUME 92.3 fl (80-96); MEAN PLT VOLUME 7.5 fl (7.5-11.1); MONO % 9.3 % (3.8-10.2); NEUT % 56.9 % (42.8-82.8); PLATELET COUNT 373 K/MM3 (134-434); RBC 5.38 M/mm3 (4.00-5.60); RDW 17.7 % (11.9-15.9); WHITE BLOOD COUNT 9.4 K/mm3 (4.0-10.0)
[2019-12-02 13:01] LABS: INR 0.95 (0.83-1.09); PROTHROMBIN TIME (PATIENT) 11.2 SEC (9.7-13.0)
[2019-12-02] MEDS: DOCUSATE SODIUM 100 MG CAPSULE (FP) PO SCH ×2 (13:03→22:30)
[2019-12-02] MEDS: GABAPENTIN 300 MG CAPSULE PO SCH ×2 (13:03→22:30)
[2019-12-02 13:04] LABS: ACTIVATED PTT 35.1 SECONDS (25.2-36.5)
[2019-12-02 13:22] LABS: ALBUMIN 3.9 g/dl (3.4-5.0); BILIRUBIN,TOTAL 0.2 mg/dL (0.2-1); BLOOD UREA NITROGEN 15.8 mg/dL (7-18); CALCIUM 9.7 mg/dL (8.5-10.1); CREATININE 0.9 mg/dL (0.55-1.3); POTASSIUM 4.4 mmol/L (3.5-5.1); TOT PROT 7.8 g/dl (6.4-8.2)
[2019-12-02] MEDS ORDERED: HEPARIN INFUSION - 25,000 UNITS/500 ML INFUS.BAG IVPB ONE (13:30)
[2019-12-02] MEDS ORDERED: fentaNYL CITRATE 250 MCG/5 ML VIAL ONE (17:24)
[2019-12-02] MEDS ORDERED: MIDAZOLAM HCL 2 MG/2 ML SINGLE DOSE VIAL ONE (17:24)
[2019-12-02] MEDS ORDERED: ROCURONIUM BROMIDE 50 MG/5 ML SYRINGE ONE (17:24)
[2019-12-02] MEDS ORDERED: ceFAZolin SODIUM 1 GM VIAL IVPB ONE (17:48)
[2019-12-02] MEDS ORDERED: PROPOFOL 20 ML ONE (18:11)
[2019-12-02] MEDS ORDERED: POVIDONE-IODINE OINTMENT 10% - 28.4 GM TUBE ONE (18:15)
[2019-12-02] MEDS ORDERED: DESFLURANE GAS 240 ML BOTTLE IH ONE (18:24)
[2019-12-02] MEDS ORDERED: oxyCODONE HCL 5 MG TABLET PO PRN ×2 (20:09)
[2019-12-02] MEDS ORDERED: HEPARIN NA (PORCINE) 5,000 UNITS/ML 1ML VIAL IVPUSH PRN ×3 (20:14→20:18)
[2019-12-02] MEDS ORDERED: SODIUM CHLORIDE 1,000 ML IV SCH (20:15)
[2019-12-02] MEDS ORDERED: morphine SULFATE 4 MG/ML VIAL IVPUSH PRN (20:27)
[2019-12-02] MEDS ORDERED: ACETAMINOPHEN INJECTION 100 ML IVPB ONE (21:04)
[2019-12-02] MEDS ORDERED: ATORVASTATIN CA 10 MG TABLET (FP) PO SCH (22:00)
[2019-12-02] MEDS ORDERED: CHLORHEXIDINE GLUCONATE 4% CLEANSER FOR DECOLONIZATION TP SCH (22:00)
[2019-12-02] MEDS: MUPIROCIN 2% TOPICAL OINTMENT FOR DECOLONIZATION NS SCH (22:08)
[2019-12-03] MEDS: GABAPENTIN 300 MG CAPSULE PO SCH ×2 (05:51→15:00)
[2019-12-03] MEDS: DOCUSATE SODIUM 100 MG CAPSULE (FP) PO SCH ×2 (05:51→16:59)
[2019-12-03 05:54] VITALS: TEMP 98.2
[2019-12-03 06:52] LABS: BASO % 0.2 % (0-2.0); HEMATOCRIT 45.3 % (35.4-49); HEMOGLOBIN 14.8 GM/dL (11.7-16.9); LYMPH % 17.4 % (8-40); MCH 30.4 pg (25.7-33.7); MCHC 32.6 g/dl (32.0-35.9); MEAN CELL VOLUME 93.2 fl (80-96); MEAN PLT VOLUME 7.3 fl (7.5-11.1); NEUT % 76.4 % (42.8-82.8); PLATELET COUNT 313 K/MM3 (134-434); RBC 4.86 M/mm3 (4.00-5.60); RDW 17.4 % (11.9-15.9); WHITE BLOOD COUNT 9.8 K/mm3 (4.0-10.0)
[2019-12-03 07:13] LABS: ALBUMIN 3.3 g/dl (3.4-5.0); BILIRUBIN,TOTAL 0.2 mg/dL (0.2-1); BLOOD UREA NITROGEN 13.8 mg/dL (7-18); CALCIUM 8.8 mg/dL (8.5-10.1); POTASSIUM 4.4 mmol/L (3.5-5.1); TOT PROT 6.8 g/dl (6.4-8.2)
[2019-12-03] MEDS ORDERED: GENTAMICIN SO4 0.1% TOPICAL OINTMENT 15 GM/TUBE TUBE TP SCH (10:00)
[2019-12-03] MEDS: MUPIROCIN 2% TOPICAL OINTMENT FOR DECOLONIZATION NS SCH (10:55)
[2019-12-03] MEDS ORDERED: ENOXAPARIN NA (PORCINE) 100 MG/1 ML DISP.SYRIN SQ SCH (11:45)
[2019-12-03] MEDS ORDERED: ENOXAPARIN NA (PORCINE) 60 MG/0.6 ML DISP.SYRIN SQ ONE (13:00)
[2019-12-03 18:01] VITALS: BP 132/71; PULSE 80
== END 2019-12-03 20:26 | disposition home or self-care (01) | DRG 253 ==
LOC: JOR 11:31 → JERBED 12:50 → JICU 21:40
PROVIDERS: ADMIT Surgery; ATTEND Surgery
PROC: B41FZZZ Fluoroscopy of Right Lower Extremity Arteries (ICD-10-PCS; 2019-12-02)
PROC: 04CK0ZZ Extirpation of Matter from Right Femoral Artery, Open Approach (ICD-10-PCS; principal; 2019-12-02 16:30)
PROC: 047 Lower Arteries, Dilation (ICD-10-PCS; 2019-12-02 16:30)
DX: T82.818A Embolism due to vascular prosthetic devices, implants and grafts, initial encounter (principal); I82.411 Acute embolism and thrombosis of right femoral vein; I10 Essential (primary) hypertension; E78.5 Hyperlipidemia, unspecified; I73.9 Peripheral vascular disease, unspecified; K21.9 Gastro-esophageal reflux disease without esophagitis; G62.9 Polyneuropathy, unspecified; K59.09 Other constipation; N20.0 Calculus of kidney; Z86.718 Personal history of other venous thrombosis and embolism; Y83.8 Other surgical procedures as the cause of abnormal reaction of the patient, or of later complication, without mention of misadventure at the time of the procedure
CPT/HCPCS: 36415; 71046-TC-FY; 76000-TC-FY; 80053; 85025; 85610; 85730; 86850; 86900; 86901; 88304-TC; 93005; 93010; 94760; 97116-GP; 97161-GP; 99285-25; J0131; J1644; U0003

== ENCOUNTER 2020-01-09 09:04 | Inpatient (IN) | payer BC ==
[2020-01-09] MEDS ORDERED: ACETAMINOPHEN INJECTION 100 ML IVPB ONE ×2 (09:27→15:03)
[2020-01-09] MEDS ORDERED: SODIUM CHLORIDE 2,313 ML IV ONE (09:31)
--- NOTE | 2020-01-09 09:43 | PDOC ---
Attending Attestation - ED Attending Attestation I have performed the following: I have examined & evaluated the patient, The case was reviewed & discussed with the resident, I agree w/resident's findings & plan, Exceptions are as noted - HPI HPI: 01/09/20 09:43 59YOM with h/o recurrent DVTs (on lovenox, ASA, Plavix, followed by vascular surgery), HTN, HLD, PAD, and renal calculi, who was recently admitted for vascular procedure, and who now p/w 2 days of chills and dry cough, then this morning began having head-to-toe body aches worse in the back and legs. He also notes diarrhea since yesterday. Denies n/v, constipation, abdominal pain, chest pain, lightheadedness, vertigo, headache, leg swelling or calf pain, or other symptoms. Other than his recent hospital admission, he denies any known COVID-19 exposures - Physicial Exam PE: 01/09/20 09:44 GENERAL: a bit ill-appearing, A/Ox4, mild distress, answers questions appropriately, appears dehydrated, wearing face mask HEENT: PERRLA, EOMI, dry mucous membranes NECK/BACK: no midline ttp, no spinal stepoff or deformity, no hematoma, full ROM, neck supple CARDIOVASCULAR: regular rhythm, no MGR, strong peripheral pulses, capillary refill 4 seconds, no edema LUNGS/RESPIRATORY: tachypneic, increased WOB, cough noted, coarse breath sounds bilaterally without focal area of decreased breath sounds GI/ABDOMEN: symmetric [id number], normoactive BS, soft, no ttp, no midline pulsatile masses : no CVA tenderness MSK/EXTREMITIES: no muscle atrophy, no acute deformity SKIN: right inguinal incision site with significant tenderness, swelling, slight warmth and erythema, incision is a bit dehiscent without significant discharge, non-malodorous, skin is otherwise warm and dry, no pallor, no jaundice, no rash NEUROLOGICAL: GCS 15, CN II-XII grossly intact, 5/5 strength proximally and distally, no facial droop - Medical Decision Making 01/09/20 09:45 Patient presents with fever, SOB, cough, c/f COVID-19 in the setting of COVID-19 pandemic. Initial Vital Signs Temp Pulse Resp BP Pulse Ox 102.5 F H 112 H 20 107/63 97 07/26/20 09:17 01/09/20 09:17 01/09/20 09:17 01/09/20 09:17 01/09/20 09:17 DDX IBNLT: possible right inguinal incision infection. Possible COVID-19, superimposed bacterial PNA considered as well. COPD/asthma/CHF exacerbation or other underlying lung disease possible contributing factor. Less likely influenz a, bronchitis, other viral URI, laryngitis, tracheitis, etc. W/U ordered: Labs as noted below from sepsis order set, COVID-19 swab, EKG, CXR TX ordered: Ofirmev, IVF, abx. EKG: Reviewed; results as noted in ECG Review section. CXR: A single AP view of the chest reveals clear lungs, normal heart, sclerotic knob and slightly prominent hilar markings. The angles are sharp. The bones and soft tissues are intact. An acute process is not seen. Since 12/02/2019 there is no change of an adverse nature. Impression : No acute chest pathology. If symptoms persist, further imaging may be of help. Laboratory Tests 01/09/20 01/09/20 01/09/20 09:40 09:40 09:40 WBC 19.3 H RBC 4.48 Hgb 13.9 Hct 41.7 MCV 93.0 MCH 31.1 MCHC 33.4 RDW 16.1 H Plt Count 300 MPV 7.4 L Absolute Neuts (auto) 18.5 H Neutrophils % 95.8 H D Lymphocytes % 1.9 L D Monocytes % 2.2 L Eosinophils % 0.0 Basophils % 0.1 Nucleated RBC % 0 PT with INR 16.00 H INR 1.35 H PTT (Actin FS) 32.4 VBG pH POC VBG pCO2 POC VBG pO2 VBG HCO3 VBG O2 Sat (Clarisa) VBG Base Excess Sodium Potassium Chloride Carbon Dioxide Anion Gap BUN Creatinine Est GFR (CKD-EPI)AfAm Est GFR (CKD-EPI)NonAf Random Glucose Lactic Acid Calcium Total Bilirubin AST ALT Alkaline Phosphatase Creatine Kinase Creatine Kinase Index CK-MB (CK-2) Troponin I Cancelled Total Protein Albumin Stool Occult Blood Blood Type Antibody Screen 01/09/20 01/09/20 01/09/20 09:40 09:40 09:40 WBC RBC Hgb Hct MCV MCH MCHC RDW Plt Count MPV Absolute Neuts (auto) Neutrophils % Lymphocytes % Monocytes % Eosinophils % Basophils % Nucleated RBC % PT with INR INR PTT (Actin FS) VBG pH 7.381 POC VBG pCO2 36.7 L POC VBG pO2 24.4 L VBG HCO3 21.3 L VBG O2 Sat (Clarisa) 43.0 L VBG Base Excess -3.2 L Sodium 129 L Potassium 3.8 Chloride 98 Carbon Dioxide 21 Anion Gap 11 BUN 26.9 H Creatinine 1.5 H Est GFR (CKD-EPI)AfAm 57.82 Est GFR (CKD-EPI)NonAf 49.88 Random Glucose 125 H Lactic Acid 2.0 Calcium 8.8 Total Bilirubin 0.5 AST 26 ALT 18 Alkaline Phosphatase 76 Creatine Kinase 778 H Creatine Kinase Index 0.1 CK-MB (CK-2) 1.1 Troponin I < 0.02 Total Protein 6.8 Albumin 3.2 L Stool Occult Blood Blood Type Antibody Screen 01/09/20 01/09/20 09:40 10:10 WBC RBC Hgb Hct MCV MCH MCHC RDW Plt Count MPV Absolute Neuts (auto) Neutrophils % Lymphocytes % Monocytes % Eosinophils % Basophils % Nucleated RBC % PT with INR INR PTT (Actin FS) VBG pH POC VBG pCO2 POC VBG pO2 VBG HCO3 VBG O2 Sat (Clarisa) VBG Base Excess Sodium Potassium Chloride Carbon Dioxide Anion Gap BUN Creatinine Est GFR (CKD-EPI)AfAm Est GFR (CKD-EPI)NonAf Random Glucose Lactic Acid Calcium Total Bilirubin AST ALT Alkaline Phosphatase Creatine Kinase Creatine Kinase Index CK-MB (CK-2) Troponin I Total Protein Albumin Stool Occult Blood Negative Blood Type A POSITIVE Antibody Screen Negative CT/LOWER EXTREMITY CT WITH CONTR [id number] CT/PELVIS CT WITH CONTRAST History provided: Rule out abscess. Sequential axial images were obtained from the iliac crests through the lower thighs following the demonstration of intravenous contrast material. The patient is S/P right axillary femoral bypass graft, as well as a femorofemoral graft. An additional occluded graft is also noted in the right groin and proximal side. Clinical correlation as to the nature of the patient's previous vascular procedures is recommended. There is no evidence of a fluid collection in the right inguinal region that might represent an abscess. There is postoperative scarring noted within the subcutaneous tissues about the graft site. No pelvic masses or fluid collections are identified. There is no evidence of pelvic lymphadenopathy. The prostate gland is not significantly enlarged. There is no evidence of acute bony pathology. IMPRESSION: S/P multiple vascular grafts, including a right axillary femoral graft and a femorofemoral graft that are patent. There is also an occluded right-sided graft present. There is no evidence of an abscess within the right groin at the graft or acute pelvic pathology. Please see above discussion. US/DUPLEX ART. LOWER COMPL US History provided: Rest pain. Real time and Doppler evaluation of the arteries of both lower extremities demonstrates the following: There is a patent graft in the right groin with flow identified within the popliteal and posterior tibial arteries. There is no evidence of an occlusion. There is an additional occluded graft within the right groin which most likely is related to an older procedure. There is also a patent graft within the left groin with flow also identified within the popliteal and posterior tibial arteries. A complete study of the lower extremity with CTA or conventional angiography is now recommended. IMPRESSION: 1. Patent bilateral femoral artery grafts with flow identified within the popliteal and posterior tibial arteries bilaterally. 2. An additional occluded right femoral graft. 3. Correlation with CTA or conventional angiography now recommended. Please see above discussion. The Pt is unsafe for discharge at this time. They require further hospital observation, workup, and treatment. Admission procedures to be carried out by resident team. Heart Score/ECG Review #1 01/09/20 09:38 Sinus tachycardia, rate 108, normal axis and intervals, no ischemic ST-T changes Discharge - Discharge Information Problems reviewed: Yes Clinical Impression/Diagnosis: Sepsis Qualifiers: Sepsis type: sepsis due to unspecified organism Sepsis acute organ dysfunction status: with acute organ dysfunction Severe sepsis acute organ dysfunction type: unspecified Severe sepsis shock status: unspecified Qualified Code(s): A41.9 - Sepsis, unspecified organism Surgical wound dehiscence Qualifiers: Encounter type: initial encounter Qualified Code(s): T81.31XA - Disruption of external operation (surgical) wound, not elsewhere classified, initial encounter Post-operative infection Qualifiers: Encounter type: initial encounter Postoperative infection type: unspecified type Qualified Code(s): T81.40XA - Infection following a procedure, unspecified, initial encounter Condition: Guarded - Admission Yes - Follow up/Referral - Patient Discharge Instructions - Post Discharge Activity
[2020-01-09] MEDS ORDERED: CEFEPIME HCL/D5W 2 GM/50 ML BAG IVPB ONE (09:50)
[2020-01-09] MEDS ORDERED: VANCOMYCIN HCL 1,250 MG in DEXTROSE 5%-WATER - 250 ML IVPB ONE (09:58)
[2020-01-09] MEDS ORDERED: CEFEPIME 2 GM/100 ML BAG IVPB ONE (09:58)
--- NOTE | 2020-01-09 09:58 | PDOC ---
History of Present Illness - General Chief Complaint: Pain Stated Complaint: PAIN Time Seen by Provider: 01/09/20 09:22 History Source: Patient Exam Limitations: No Limitations - History of Present Illness Initial Comments: 01/09/20 09:56 59yo male history of DVTs and recent admission for DVT procedure p/w chills, dry cough, mild sore throat, and watery diarrhea since yesterday, and severe back and leg aches since this morning. ROS otherwise negative. No sick contacts or recent travel, but recent hospitalization. No leg swelling or hemoptysis. No SOB. Meds notable for therapeutic dose Lovenox and DAPT ROS GENERAL/CONSTITUTIONAL: + fever and chills. HEAD, EYES, EARS, NOSE AND THROAT: No change in vision. No ear pain or discharge. +throat pain CARDIOVASCULAR: No chest pain or shortness of breath RESPIRATORY: +dry cough, no wheezing, or hemoptysis. GASTROINTESTINAL: No nausea, vomiting, or constipation. +diarrhea GENITOURINARY: No dysuria, frequency, or change in urination. MUSCULOSKELETAL: +back and leg myalgias. No joint pain SKIN: No rash NEUROLOGIC: No headache, vertigo, loss of consciousness, or change in strength/sensation. ENDOCRINE: No increased thirst. No abnormal weight change HEMATOLOGIC/LYMPHATIC: No anemia, easy bleeding, or history of blood clots. ALLERGIC/IMMUNOLOGIC: No hives or skin allergy. PE GENERAL: Awake, alert, and fully oriented, in no acute distress HEAD: No signs of trauma, normocephalic, atraumatic EYES: PERRLA, EOMI, sclera anicteric, conjunctiva clear ENT: Auricles normal inspection, hearing grossly normal, nares patent, oropharynx clear without exudates. Moist mucosa NECK: Normal ROM, supple, no lymphadenopathy, JVD, or masses LUNGS: No distress, speaks full sentences, diffuse crackles bilaterally HEART: Regular rate and rhythm, normal S1 and S2, no murmurs, rubs or gallops ABDOMEN: Soft, nontender, normoactive bowel sounds. No guarding, no rebound. No masses EXTREMITIES : Normal inspection, Normal range of motion, no edema. No clubbing or cyanosis. Dopplerable R PT signal, no signal found in L PT. NEUROLOGICAL: Cranial nerves II through XII grossly intact. Normal speech, no focal sensorimotor deficits SKIN: Erythematous access site in right inguinal region with minimal purulence. Warm, Dry, normal turgor Vital Signs Temp Pulse Resp BP Pulse Ox 102.5 F H 112 H 20 107/63 97 01/09/20 09:17 01/09/20 09:17 01/09/20 09:17 01/09/20 09:17 01/09/20 09:17 Assessment and Plan 59yo male history of DVTs and recent admission for DVT procedure p/w chills, dry cough, mild sore throat, and watery diarrhea since yesterday, and severe back and leg aches since this morning. PE notable for crackles in lungs and erythematous access site in right inguinal region with minimal purulence. Differential includes soft tissue infection, Covid, PE. He is on full dose AC and is not hypoxic, so will not get a CT PE. -Sepsis workup -CT RLE to evaluate for abscess -Covid swab -Admit -1000mg tylenol ---Labs notable for WBC 19.3 with shift, Na 129, BUN/Cr 26.9/1.5. CXR and EKG wnl. CT RLE without evidence of abscess. ---Will admit for sepsis 01/09/20 13:[address] Stoner, vascular surgeon, who is aware. Recommended scanning b/l LE distally. 01/09/20 14:05 Reassess -still complaining of defuse body pain. On home opiates in the past. Will give 5mg oxycodone -complaining of claudication symptoms with exertion and now rest pain in both feet. Spoke with Dr. Stoner who read the CT images and advised against acute surgical intervention. He requested b/l LE arterial duplex. He wants to be called if there is any change in clinical status or if surgery/procedure might be indicated. -Signed out to inpatient attending 01/09/20 15:08 01/09/20 15:12 Past History - Medical History Allergies/Adverse Reactions: Allergies Allergy/AdvReac Type Severity Reaction Status Date / Time Penicillins Allergy Verified 01/09/20 09:20 Home Medications: Ambulatory Orders Aspirin [ASA -] 81 mg PO DAILY #30 tab.chew 12/02/17 Simvastatin 20 mg PO HS 03/12/18 Clopidogrel Bisulfate [Plavix -] 75 mg PO DAILY tablet 10/07/18 Enoxaparin [Lovenox -] 100 mg SQ DAILY 01/09/20 Gabapentin [Neurontin -] 300 mg PO BID 01/09/20 Anemia: No Asthma: No Cancer: No Cardiac Disorders: No CVA: No COPD: No CHF: No DVT: Yes (on lovenox and plavix) Dementia: No Diabetes: No GI Disorders: No Disorders: No HTN: No Hypercholesterolemia: Yes Kidney Stones: Yes Liver Disease: No Seizures: No Thyroid Disease: No - Surgical History Abdominal Surgery: Yes Appendectomy: No Cardiac Surgery: No Cholecystectomy: No Lung Surgery: No Neurologic Surgery: No Orthopedic Surgery: No - Immunization History Immunization Up to Date: Yes - Psycho-Social/Smoking History Smoking Status: Yes Smoking History: Never smoked Have you smoked in the past 12 months: No Number of Cigarettes Smoked Daily: 0 If you are a former smoker, when did you quit?: 2018 Cigars Per Day: 5 Information on smoking cessation initiated: No 'Breaking Loose' booklet given: 03/13/18 *Physical Exam - Vital Signs Last Vital Signs Temp Pulse Resp BP Pulse Ox 102.5 F H 112 H 20 107/63 97 01/09/20 09:17 01/09/20 09:17 01/09/20 09:17 01/09/20 09:17 01/09/20 09:17 ED Treatment Course - LABORATORY CBC & Chemistry Diagram: 01/09/20 09:40 01/09/20 09:40 Discharge - Discharge Information Problems reviewed: Yes Clinical Impression/Diagnosis: Sepsis Qualifiers: Sepsis type: sepsis due to unspecified organism Sepsis acute organ dysfunction status: with acute organ dysfunction Severe sepsis acute organ dysfunction type: unspecified Severe sepsis shock status: unspecified Qualified Code(s): A41.9 - Sepsis, unspecified organism Surgical wound dehiscence Qualifiers: Encounter type: initial encounter Qualified Code(s): T81.31XA - Disruption of external operation (surgical) wound, not elsewhere classified, initial encounter Post-operative infection Qualifiers: Encounter type: initial encounter Postoperative infection type: unspecified type Qualified Code(s): T81.40XA - Infection following a procedure, unspecified, initial encounter Condition: Guarded - Follow up/Referral Referrals: Dariana Cyr MD [Primary Care Provider] - - Patient Discharge Instructions - Post Discharge Activity
[2020-01-09 10:07] LABS: BASO % 0.1 % (0-2.0); HEMATOCRIT 41.7 % (35.4-49); HEMOGLOBIN 13.9 GM/dL (11.7-16.9); LYMPH % 1.9 % (8-40); MCH 31.1 pg (25.7-33.7); MCHC 33.4 g/dl (32.0-35.9); MEAN PLT VOLUME 7.4 fl (7.5-11.1); MONO % 2.2 % (3.8-10.2); NEUT % 95.8 % (42.8-82.8); PLATELET COUNT 300 K/MM3 (134-434); RBC 4.48 M/mm3 (4.00-5.60); RDW 16.1 % (11.9-15.9); WHITE BLOOD COUNT 19.3 K/mm3 (4.0-10.0)
[2020-01-09 10:10] LABS: VENOUS BASE EXCESS -3.2 mmol/L (-2-2); VENOUS PCO2 36.7 mmHg (38-52); VENOUS PH 7.381 (7.310-7.410)
[2020-01-09 10:14] LABS: INR 1.35 (0.83-1.09)
[2020-01-09 10:17] LABS: ACTIVATED PTT 32.4 SECONDS (25.2-36.5)
[2020-01-09 10:22] LABS: ALBUMIN 3.2 g/dl (3.4-5.0); ALK PHOS 76 U/L (45-117); ANION GAP 11 MMOL/L (8-16); BILIRUBIN,TOTAL 0.5 mg/dL (0.2-1); BLOOD UREA NITROGEN 26.9 mg/dL (7-18); CALCIUM 8.8 mg/dL (8.5-10.1); CHLORIDE 98 mmol/L (98-107); CO2 21 mmol/L (21-32); CREATININE 1.5 mg/dL (0.55-1.3); GLUCOSE,RANDOM 125 mg/dL (74-106); POTASSIUM 3.8 mmol/L (3.5-5.1); SGOT/AST 26 U/L (15-37); SGPT/ALT 18 U/L (13-61); SODIUM 129 mmol/L (136-145); TOT PROT 6.8 g/dl (6.4-8.2)
[2020-01-09 11:52] LABS: ANISOCYTOSIS 0; MACROCYTOSIS 0; PLATELET ESTIMATE NORMAL
[2020-01-09 12:15] LABS: URINE APPEARANCE CLEAR; URINE BILIRUBIN NEGATIVE (NEGATIVE); URINE COLOR YELLOW; URINE GLUCOSE (UA) NEGATIVE (NEGATIVE); URINE KETONE NEGATIVE (NEGATIVE); URINE LEUK ESTERASE NEGATIVE (NEGATIVE); URINE NITRITE NEGATIVE (NEGATIVE); URINE PROTEIN NEGATIVE (NEGATIVE); URINE UROBILINOGEN 0.2 mg/dL (0.2-1.0)
--- NOTE | 2020-01-09 13:22 | PDOC ---
*Physical Exam - Vital Signs Last Vital Signs Temp Pulse Resp BP Pulse Ox 98.4 F 92 H 22 H 112/66 98 01/09/20 11:28 01/09/20 13:12 01/09/20 13:12 01/09/20 13:12 01/09/20 13:12 - Physical Exam 01/09/20 13:[address] w/contrast even with Cr of 1.5 ED Treatment Course - LABORATORY CBC & Chemistry Diagram: 01/09/20 09:40 01/09/20 09:40 - ADDITIONAL ORDERS Additional order review: Laboratory Results 01/09/20 01/09/20 01/09/20 11:50 10:10 09:40 PT with INR INR PTT (Actin FS) VBG pH POC VBG pCO2 POC VBG pO2 VBG HCO3 VBG O2 Sat (Clarisa) VBG Base Excess Sodium Potassium Chloride Carbon Dioxide Anion Gap BUN Creatinine Est GFR (CKD-EPI)AfAm Est GFR (CKD-EPI)NonAf Random Glucose Lactic Acid Calcium Total Bilirubin AST ALT Alkaline Phosphatase Creatine Kinase Creatine Kinase Index CK-MB (CK-2) Troponin I Total Protein Albumin Urine Color Yellow Urine Appearance Clear Urine pH 5.0 Ur Specific [place] 1.010 Urine Protein Negative Urine Glucose (UA) Negative Urine Ketones Negative Urine Blood Negative Urine Nitrite Negative Urine Bilirubin Negative Urine Urobilinogen 0.2 Ur Leukocyte Esterase Negative Stool Occult Blood Negative Blood Type A POSITIVE Antibody Screen Negative 01/09/20 01/09/20 01/09/20 09:40 09:40 09:40 PT with INR INR PTT (Actin FS) VBG pH 7.381 POC VBG pCO2 36.7 L POC VBG pO2 24.4 L VBG HCO3 21.3 L VBG O2 Sat (Clarisa) 43.0 L VBG Base Excess -3.2 L Sodium 129 L Potassium 3.8 Chloride 98 Carbon Dioxide 21 Anion Gap 11 BUN 26.9 H Creatinine 1.5 H Est GFR (CKD-EPI)AfAm 57.82 Est GFR (CKD-EPI)NonAf 49.88 Random Glucose 125 H Lactic Acid 2.0 Calcium 8.8 Total Bilirubin 0.5 AST 26 ALT 18 Alkaline Phosphatase 76 Creatine Kinase 778 H Creatine Kinase Index 0.1 CK-MB (CK-2) 1.1 Troponin I < 0.02 Total Protein 6.8 Albumin 3.2 L Urine Color Urine Appearance Urine pH Ur Specific [place] Urine Protein Urine Glucose (UA) Urine Ketones Urine Blood Urine Nitrite Urine Bilirubin Urine Urobilinogen Ur Leukocyte Esterase Stool Occult Blood Blood Type Antibody Screen 01/09/20 01/09/20 09:40 09:40 PT with INR 16.00 H INR 1.35 H PTT (Actin FS) 32.4 VBG pH POC VBG pCO2 POC VBG pO2 VBG HCO3 VBG O2 Sat (Clarisa) VBG Base Excess Sodium Potassium Chloride Carbon Dioxide Anion Gap BUN Creatinine Est GFR (CKD-EPI)AfAm Est GFR (CKD-EPI)NonAf Random Glucose Lactic Acid Calcium Total Bilirubin AST ALT Alkaline Phosphatase Creatine Kinase Creatine Kinase Index CK-MB (CK-2) Troponin I Cancelled Total Protein Albumin Urine Color Urine Appearance Urine pH Ur Specific [place] Urine Protein Urine Glucose (UA) Urine Ketones Urine Blood Urine Nitrite Urine Bilirubin Urine Urobilinogen Ur Leukocyte Esterase Stool Occult Blood Blood Type Antibody Screen 01/09/20 09:40 RBC 4.48 MCV 93.0 MCHC 33.4 RDW 16.1 H MPV 7.4 L Neutrophils % 95.8 H D Lymphocytes % 1.9 L D Monocytes % 2.2 L Eosinophils % 0.0 Basophils % 0.1 - RADIOLOGY Radiology Studies Ordered: Category Date Time Status LOWER EXTREMITY CT WITH CONTR [CT] Stat CT Scan 01/09/20 11:[address] WITH CONTRAST [CT] Stat CT Scan 01/09/20 12:13 Ordered - Medications Given in the ED: ED Medications Discontinued Medications Generic Name Dose Route Start Last Admin Trade Name Freq PRN Reason Stop Dose Admin Sodium Chloride 2,313 mls @ 1,156.5 mls/hr 01/09/20 09:31 01/09/20 09:57 Normal Saline - 30 ml/kg infuse over 2 hr (2313 ml) 01/09/20 11:30 1,156.5 mls/hr IV Administration ONCE ONE Cefepime HCl 2 gm in 50 mls @ 100 mls/hr 01/09/20 09:50 01/09/20 10:08 Maxipime 2gm Ivpb (Premix) IVPB 01/09/20 10:19 100 mls/hr ONCE ONE Administration Vancomycin HCl 1,250 mg/ 250 mls @ 250 mls/2 hr 01/09/20 09:58 01/09/20 10:56 Dextrose IVPB 01/09/20 11:57 250 mls/2 hr ONCE ONE Administration Discharge - Discharge Information Problems reviewed: Yes Clinical Impression/Diagnosis: Sepsis Qualifiers: Sepsis type: sepsis due to unspecified organism Sepsis acute organ dysfunction status: with acute organ dysfunction Severe sepsis acute organ dysfunction type: unspecified Severe sepsis shock status: unspecified Qualified Code(s): A41.9 - Sepsis, unspecified organism Surgical wound dehiscence Qualifiers: Encounter type: initial encounter Qualified Code(s): T81.31XA - Disruption of external operation (surgical) wound, not elsewhere classified, initial encounter Post-operative infection Qualifiers: Encounter type: initial encounter Postoperative infection type: unspecified type Qualified Code(s): T81.40XA - Infection following a procedure, unspecified, initial encounter Condition: Guarded - Follow up/Referral Referrals: Dariana Cyr MD [Primary Care Provider] - - Patient Discharge Instructions - Post Discharge Activity
[2020-01-09] MEDS ORDERED: oxyCODONE HCL 5 MG TABLET PO ONE (14:03)
[2020-01-09] MEDS ORDERED: oxyCODONE HCL 5 MG TABLET ONE (14:07)
[2020-01-09] MEDS ORDERED: ACETAMINOPHEN 1000 MG/100 ML VIAL (NON FORMULARY) IVPB ONE ×2 (14:58→15:03)
[2020-01-09] MEDS ORDERED: SODIUM CHLORIDE 0.9% 500 ML INFUS.BAG IV ONE (15:03)
[2020-01-09] MEDS ORDERED: morphine CARPU-JECT 4 MG/1 ML DISP.SYRIN IVPUSH ONE (15:16)
[2020-01-09] MEDS ORDERED: morphine SULFATE 4 MG/ML VIAL ONE (15:18)
[2020-01-09] MEDS ORDERED: HEPARIN NA (PORCINE) 5,000 UNITS/ML 1ML VIAL IVPUSH PRN (15:39)
--- NOTE | 2020-01-09 16:01 | HP ---
CHIEF COMPLAINT: LE pain, fever, chills HISTORY OF PRESENT ILLNESS: 59 M h/o ischemic right leg/occluded bypass graft, s/p RLE thrombectomy (follows w/ Dr. 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 Patient describes pain in lower extremities like "bruises" and "cramping", asking repeatedly for pain meds. E ndorses fever and chills/rigors for the past few days, denies SOB/cough/sick contacts. Had RLE thrombectomy last month, per Dr. Stoner would recommend abx and arterial doppler LE b/l. ER course was notable for: (1) IVF, Vancomycin/Cefepime (PCN allergy) (2) CT LE showing blockage of R femoral graft (3) COVID pending Recent Travel: denies PAST MEDICAL HISTORY: as above PAST SURGICAL HISTORY: as above Social History: denies x3 Allergies Penicillins Allergy (Verified 01/09/20 09:20) HOME MEDICATIONS: Home Medications Medication Instructions Recorded Aspirin [ASA -] 81 mg PO DAILY #30 tab.chew 12/02/17 Simvastatin 20 mg PO HS 03/12/18 Clopidogrel Bisulfate [Plavix -] 75 mg PO DAILY tablet 10/07/18 Enoxaparin [Lovenox -] 100 mg SQ DAILY 01/09/20 Gabapentin [Neurontin -] 300 mg PO BID 01/09/20 PHYSICAL EXAMINATION GENERAL: AAOx3, mild distress, rigors present HEENT NC/aT, EOMI, neck supple, dry MM, no JVD LUNGS: Good air entry b/l, no crackles or wheezing, slightly tachypneic HEART: Sinus tachycardia, S1, S2+ ABDOMEN: Soft, nontender, not distended, normoactive bowel sounds, no guarding, no rebound, no masses. MUSCULOSKELETAL: Normal range of motion at all joints. No bony deformities or tenderness. No CVA tenderness. UPPER EXTREMITIES: 2+ pulses, warm, well-perfused. No cyanosis. No clubbing. Cap refill <2 seconds. No peripheral edema. LOWER EXTREMITIES: Doppler PT R intact, no L PT appreciated (Dr. Stoner aware of findings, recommends arterial doppler study) NEUROLOGICAL: Non-focal. PSYCHIATRIC: Cooperative. Good eye contact. Appropriate mood and affect. SKIN: Warm, dry, normal turgor. Surgical changes R leg from thrombectomy, slight erythema of scar site, no fluctuance or discharge. Vital Signs - 24 hr 01/09/20 01/09/20 01/09/20 09:17 09:40 10:00 Temperature 102.5 F H Pulse Rate 112 H Pulse Rate [ 92 H Apical] Respiratory 20 24 H Rate Blood Pressure 107/63 Blood Pressure 96/59 L [Left Arm] O2 Sat by Pulse 97 97 97 Oximetry (%) 01/09/20 01/09/20 01/09/20 11:28 13:12 13:38 Temperature 98.4 F 98.9 F Pulse Rate Pulse Rate [ 92 H Apical] Respiratory 26 H 22 H Rate Blood Pressure Blood Pressure 96/59 L 112/66 [Left Arm] O2 Sat by Pulse 97 98 Oximetry (%) 01/09/20 01/09/20 14:59 15:00 Temperature 100.4 F H Pulse Rate Pulse Rate [ 122 H Apical] Respiratory 26 H Rate Blood Pressure Blood Pressure 139/73 [Left Arm] O2 Sat by Pulse 99 Oximetry (%) Laboratory Results - last 24 hr 01/09/20 01/09/20 01/09/20 09:40 09:40 09:40 WBC 19.3 H RBC 4.48 Hgb 13.9 Hct 41.7 MCV 93.0 MCH 31.1 MCHC 33.4 RDW 16.1 H Plt Count 300 MPV 7.4 L Absolute Neuts (auto) 18.5 H Neutrophils % 95.8 H D Neutrophils % (Manual) 82.0 Band Neutrophils % 14.0 Lymphocytes % 1.9 L D Lymphocytes % (Manual) 0.0 L Monocytes % 2.2 L Monocytes % (Manual) 3 L Eosinophils % 0.0 Eosinophils % (Manual) 0.0 Basophils % 0.1 Basophils % (Manual) 0.0 Myelocytes % (Man) 1 Promyelocytes % (Man) 0 Blast Cells % (Manual) 0 Nucleated RBC % 0 Metamyelocytes 0 Hypochromia 0 Platelet Estimate Normal Polychromasia 0 Poikilocytosis 0 Anisocytosis 0 Microcytosis 0 Macrocytosis 0 PT with INR 16.00 H INR 1.35 H PTT (Actin FS) 32.4 VBG pH POC VBG pCO2 POC VBG pO2 VBG HCO3 VBG O2 Sat (Clarisa) VBG Base Excess Sodium Potassium Chloride Carbon Dioxide Anion Gap BUN Creatinine Est GFR (CKD-EPI)AfAm Est GFR (CKD-EPI)NonAf Random Glucose Lactic Acid Calcium Total Bilirubin AST ALT Alkaline Phosphatase Creatine Kinase Creatine Kinase Index CK-MB (CK-2) Troponin I Cancelled Total Protein Albumin Urine Color Urine Appearance Urine pH Ur Specific [place] Urine Protein Urine Glucose (UA) Urine Ketones Urine Blood Urine Nitrite Urine Bilirubin Urine Urobilinogen Ur Leukocyte Esterase Stool Occult Blood Blood Type Antibody Screen 01/09/20 01/09/20 01/09/20 09:40 09:40 09:40 WBC RBC Hgb Hct MCV MCH MCHC RDW Plt Count MPV Absolute Neuts (auto) Neutrophils % Neutrophils % (Manual) Band Neutrophils % Lymphocytes % Lymphocytes % (Manual) Monocytes % Monocytes % (Manual) Eosinophils % Eosinophils % (Manual) Basophils % Basophils % (Manual) Myelocytes % (Man) Promyelocytes % (Man) Blast Cells % (Manual) Nucleated RBC % Metamyelocytes Hypochromia Platelet Estimate Polychromasia Poikilocytosis Anisocytosis Microcytosis Macrocytosis PT with INR INR PTT (Actin FS) VBG pH 7.381 POC VBG pCO2 36.7 L POC VBG pO2 24.4 L VBG HCO3 21.3 L VBG O2 Sat (Clarisa) 43.0 L VBG Base Excess -3.2 L Sodium 129 L Potassium 3.8 Chloride 98 Carbon Dioxide 21 Anion Gap 11 BUN 26.9 H Creatinine 1.5 H Est GFR (CKD-EPI)AfAm 57.82 Est GFR (CKD-EPI)NonAf 49.88 Random Glucose 125 H Lactic Acid 2.0 Calcium 8.8 Total Bilirubin 0.5 AST 26 ALT 18 Alkaline Phosphatase 76 Creatine Kinase 778 H Creatine Kinase Index 0.1 CK-MB (CK-2) 1.1 Troponin I < 0.02 Total Protein 6.8 Albumin 3.2 L Urine Color Urine Appearance Urine pH Ur Specific [place] Urine Protein Urine Glucose (UA) Urine Ketones Urine Blood Urine Nitrite Urine Bilirubin Urine Urobilinogen Ur Leukocyte Esterase Stool Occult Blood Blood Type Antibody Screen 01/09/20 01/09/20 01/09/20 09:40 10:10 11:50 WBC RBC Hgb Hct MCV MCH MCHC RDW Plt Count MPV Absolute Neuts (auto) Neutrophils % Neutrophils % (Manual) Band Neutrophils % Lymphocytes % Lymphocytes % (Manual) Monocytes % Monocytes % (Manual) Eosinophils % Eosinophils % (Manual) Basophils % Basophils % (Manual) Myelocytes % (Man) Promyelocytes % (Man) Blast Cells % (Manual) Nucleated RBC % Metamyelocytes Hypochromia Platelet Estimate Polychromasia Poikilocytosis Anisocytosis Microcytosis Macrocytosis PT with INR INR PTT (Actin FS) VBG pH POC VBG pCO2 POC VBG pO2 VBG HCO3 VBG O2 Sat (Clarisa) VBG Base Excess Sodium Potassium Chloride Carbon Dioxide Anion Gap BUN Creatinine Est GFR (CKD-EPI)AfAm Est GFR (CKD-EPI)NonAf Random Glucose Lactic Acid Calcium Total Bilirubin AST ALT Alkaline Phosphatase Creatine Kinase Creatine Kinase Index CK-MB (CK-2) Troponin I Total Protein Albumin Urine Color Yellow Urine Appearance Clear Urine pH 5.0 Ur Specific [place] 1.010 Urine Protein Negative Urine Glucose (UA) Negative Urine Ketones Negative Urine Blood Negative Urine Nitrite Negative Urine Bilirubin Negative Urine Urobilinogen 0.2 Ur Leukocyte Esterase Negative Stool Occult Blood Negative Blood Type A POSITIVE Antibody Screen Negative Home Medications Medication Instructions Recorded Aspirin [ASA -] 81 mg PO DAILY #30 tab.chew 12/02/17 Simvastatin 20 mg PO HS 03/12/18 Clopidogrel Bisulfate [Plavix -] 75 mg PO DAILY tablet 10/07/18 Enoxaparin [Lovenox -] 100 mg SQ DAILY 01/09/20 Gabapentin [Neurontin -] 300 mg PO BID 01/09/20 Current Medications Generic Name Dose Route Start Last Admin Trade Name Freq PRN Reason Stop Dose Admin Acetaminophen 325 mg 01/09/20 15:45 Tylenol - PO Q6H PRN PAIN LEVEL 6-10 Atorvastatin Calcium 80 mg 01/09/20 22:00 Lipitor - PO HS [facility] Clopidogrel Bisulfate 75 mg 01/10/20 10:00 Plavix - PO DAILY GERALD Docusate Sodium 100 mg 01/09/20 15:45 Colace - PO DAILY G[facility]D Gabapentin 300 mg 01/09/20 22:00 Neurontin - PO BID [facility] Heparin Sodium (Porcine) 1,000 unit 01/09/20 15:39 Heparin - IVPUSH PRN PRN Heparin Heparin Sodium (Porcine) 5,000 unit 01/09/20 15:39 Heparin - IVPUSH PRN PRN Heparin Heparin Sodium (Porcine) 25, 500 mls @ 20 mls/hr 01/09/20 15:45 000 unit/ Sodium Chloride IV TITR GERALD Protocol 1,000 UNIT/HR Sodium Chloride 1,000 mls @ 100 mls/hr 01/09/20 15:45 Normal Saline - IV ASDIR [facility] Oxycodone HCl 5 mg 01/09/20 15:45 Roxicodone - PO Q6H PRN PAIN LEVEL 6-10 Pantoprazole Sodium 40 mg 01/10/20 10:00 Protonix - PO DAILY [facility] Polyethylene Glycol 17 gm 01/09/20 15:45 Miralax (For Daily Use) - PO DAILY G[facility]D Senna 1 tab 01/09/20 22:00 Senna - PO HS [facility] ASSESSMENT/PLAN: 59 M s/p RLE thrombectomy 1 month ago w/ ?wound infection r/o re-occlusive crisis in LLE HTN HLD Peripheral neuropathy GERD PCN allergy Plan: Vancomycin/Cefepime for sepsis 2/2 suspected wound infection Received boluses of NS in ED, cont. maintenance w/ NS Trend chem/CRE, cont. hydration Arterial doppler ordered, Vascular aware of findings, follow findings Renal evaluation for ALICIA likely prerenal d/t sepsis, send urine lytes/CRE, fluid challenge, obtain random Vancomycin levels in AM Avoid nephrotoxins Percocet for pain control, supplement bowel regimen Heparin gtt, Plavix, statin, BP management NPO MN for possible intervention in AM Tele monitoring Visit type - Emergency Visit Emergency Visit: Yes ED Registration Date: 01/09/20 Care time: The patient presented to the Emergency Department on the above date and was hospitalized for further evaluation of their emergent condition. - New Patient This patient is new to me today: Yes Date on this admission: 01/09/20 - Critical Care Critical Care patient: No
[2020-01-09] MEDS: SODIUM CHLORIDE 1,000 ML IV SCH ×2 (16:25→22:50)
--- NOTE | 2020-01-09 17:19 | EKG ---
Test Reason : Blood Pressure : / mmHG Vent. Rate : 108 BPM Atrial Rate : 108 BPM P-R Int : 132 ms QRS Dur : 092 ms QT Int : 316 ms P-R-T Axes : 065 053 030 degrees QTc Int : 423 ms POOR DATA QUALITY, INTERPRETATION MAY BE ADVERSELY AFFECTED SINUS TACHYCARDIA POSSIBLE LEFT ATRIAL ENLARGEMENT NONSPECIFIC T WAVE ABNORMALITY ABNORMAL ECG WHEN COMPARED WITH ECG OF 02-DEC-2019 12:53, INVERTED T WAVES HAVE REPLACED NONSPECIFIC T WAVE ABNORMALITY IN ANTERIOR LEADS Confirmed by MD Kari, Jamey ([id number]) on 01/09/2020 5:19:08 PM Referred By: Confirmed By:Jamey Pierce MD
[2020-01-09] MEDS: POLYETHYLENE GLYCOL 3350 119 GM BTL PO SCH (18:26)
[2020-01-09] MEDS: DOCUSATE SODIUM 100 MG CAPSULE (FP) PO SCH (18:26)
--- NOTE | 2020-01-09 19:00 | CONSULT ---
Consult - text type - Consultation Consultation Note: 59 year old man with right Axillo-femoral and femorofemoral bypass, right fem- tibial graft with multiple episodes of graft thrombosis. His most recent episode was treated at [place] with thrombolysis and angioplasty. He was last seen by me on . His grafts were patent. He had pain, local swelling and erythema over the recent surgical incision but no fluctuance or drainage. He did not complain of fever, chills or body aches. Review of his CT and Duplex show patent bypass grafts with intact flow to both posterior tibial arteries. There is no abscess seen at the incision site. He requires Lovenox, Plavix and aspirin for graft patency if no evidence for hemorrhage. ID evaluation needed for fever workup.
[2020-01-09] MEDS: HEPARIN - 25,000 UNIT in SODIUM CHLORIDE 495 ML IV SCH (19:55)
[2020-01-09] MEDS: oxyCODONE HCL 5 MG TABLET PO PRN (20:13)
[2020-01-09] MEDS ORDERED: ACETAMINOPHEN 325 MG TABLET (FP) PO ONE (20:13)
[2020-01-09] MEDS: ACETAMINOPHEN 325 MG TABLET (FP) PO PRN (20:14)
[2020-01-09] MEDS: ATORVASTATIN CA 80 MG TABLET (FP) PO SCH (22:05)
[2020-01-09] MEDS: GABAPENTIN 300 MG CAPSULE PO SCH (22:05)
[2020-01-09] MEDS: SENNOSIDES 8.6MG TABLET (FP) PO SCH (22:06)
[2020-01-10] MEDS: HEPARIN NA (PORCINE) 5,000 UNITS/ML 1ML VIAL IVPUSH PRN (02:42)
[2020-01-10] MEDS: HEPARIN - 25,000 UNIT in SODIUM CHLORIDE 495 ML IV SCH ×4 (02:43→22:49)
[2020-01-10] MEDS: oxyCODONE HCL 5 MG TABLET PO PRN ×4 (03:02→22:13)
[2020-01-10] MEDS: ACETAMINOPHEN 325 MG TABLET (FP) PO PRN ×3 (03:03→22:14)
[2020-01-10] MEDS ORDERED: guaiFENesin 200 MG/10 ML 10 ML UNIT-DOSE CUPS PO ONE (03:13)
[2020-01-10 07:48] LABS: BASO % 0.3 % (0-2.0); HEMATOCRIT 36.4 % (35.4-49); HEMOGLOBIN 12.3 GM/dL (11.7-16.9); LYMPH % 4.4 % (8-40); MCH 31.5 pg (25.7-33.7); MCHC 33.7 g/dl (32.0-35.9); MEAN CELL VOLUME 93.5 fl (80-96); MEAN PLT VOLUME 7.8 fl (7.5-11.1); MONO % 2.4 % (3.8-10.2); NEUT % 92.9 % (42.8-82.8); PLATELET COUNT 186 K/MM3 (134-434); RBC 3.89 M/mm3 (4.00-5.60); RDW 16.2 % (11.9-15.9); WHITE BLOOD COUNT 10.5 K/mm3 (4.0-10.0)
[2020-01-10 08:21] LABS: ALBUMIN 2.4 g/dl (3.4-5.0); BILIRUBIN,TOTAL 0.6 mg/dL (0.2-1); CALCIUM 7.6 mg/dL (8.5-10.1); POTASSIUM 3.8 mmol/L (3.5-5.1); TOT PROT 5.6 g/dl (6.4-8.2)
--- NOTE | 2020-01-10 08:28 | PN ---
Progress Note, Physician - Current Medication List Current Medications: Active Medications Acetaminophen (Tylenol -) 325 mg PO Q6H PRN PRN Reason: PAIN LEVEL 6-10 Last Admin: 01/10/20 03:03 Dose: 325 mg Documented by: Atorvastatin Calcium (Lipitor -) 80 mg PO HS [facility] Last Admin: 01/09/20 22:05 Dose: 80 mg Documented by: Clopidogrel Bisulfate (Plavix -) 75 mg PO DAILY [facility] Docusate Sodium (Colace -) 100 mg PO DAILY [facility] Last Admin: 01/09/20 18:26 Dose: Not Given Documented by: Gabapentin (Neurontin -) 300 mg PO BID [facility] Last Admin: 01/09/20 22:05 Dose: 300 mg Documented by: Heparin Sodium (Porcine) (Heparin -) 1,000 unit IVPUSH PRN PRN PRN Reason: Heparin Last Admin: 01/10/20 02:42 Dose: 1,000 unit Documented by: Heparin Sodium (Porcine) (Heparin -) 5,000 unit IVPUSH PRN PRN PRN Reason: Heparin Heparin Sodium (Porcine) 25, (000 unit/ Sodium Chloride) 500 mls @ 20 mls/hr IV TITR GERALD; Protocol Last Admin: 01/10/20 02:43 Dose: 1,100 unit/hr, 22 mls/hr Documented by: Sodium Chloride (Normal Saline -) 1,000 mls @ 100 mls/hr IV ASDIR [facility]D Last Admin: 01/09/20 22:50 Dose: 100 mls/hr Documented by: Oxycodone HCl (Roxicodone -) 5 mg PO Q6H PRN PRN Reason: PAIN LEVEL 6-10 Last Admin: 01/10/20 03:02 Dose: 5 mg Documented by: Pantoprazole Sodium (Protonix -) 40 mg PO DAILY [facility] Polyethylene Glycol (Miralax (For Daily Use) -) 17 gm PO DAILY [facility] Last Admin: 01/09/20 18:26 Dose: Not Given Documented by: Senna (Senna -) 1 tab PO HS [facility] Last Admin: 01/09/20 22:06 Dose: Not Given Documented by: - Objective Vital Signs: Vital Signs Temperature 98 F 01/10/20 06:00 Pulse Rate 94 H 01/10/20 06:00 Respiratory Rate 20 01/10/20 06:00 Blood Pressure 94/66 01/10/20 06:00 O2 Sat by Pulse Oximetry (%) 94 L 01/09/20 21:00 Cardiovascular: Yes: S1, S2 Respiratory: Yes: Regular, CTA Bilaterally Gastrointestinal: Yes: Normal Bowel Sounds, Soft Labs: CBC, BMP 01/10/20 06:40 01/10/20 06:00 INR, PTT INR 1.35 (0.83-1.09) H 01/09/20 09:40 Problem List - Problems (1) Sepsis Assessment/Plan: Microbiology 01/09/20 09:40 Blood - Peripheral Venous Blood Culture - Preliminary Pending Organism 01/09/20 09:40 Blood - Peripheral Venous Blood Culture - Preliminary Pending Organism 01/09/20 10:10 Thigh - Right Gram Stain - Preliminary IV ABX ID CONSULT Code(s): A41.9 - SEPSIS, UNSPECIFIED ORGANISM Qualifiers: Sepsis type: sepsis due to unspecified organism Sepsis acute organ dysfunction status: with acute organ dysfunction Severe sepsis acute organ dysfunction type: unspecified Severe sepsis shock status: unspecified Qualified Code(s): A41.9 - Sepsis, unspecified organism; R65.20 - Severe sepsis without septic shock (2) Arterial occlusion, lower extremity Assessment/Plan: VASCULAR CONSULT NOTED PLAVIX HEAPRIN Code(s): I70.209 - UNSP ATHSCL [place] JOLLA ARTERIES OF EXTREMITIES, UNSP EXTREMITY (3) ALICIA (acute kidney injury) Assessment/Plan: IVF RENAL Code(s): N17.9 - ACUTE KIDNEY FAILURE, UNSPECIFIED (4) Cough Assessment/Plan: PULM CONSULT Code(s): R05 - COUGH (5) HLD (hyperlipidemia) Assessment/Plan: ON LIPITOR Code(s): E78.5 - HYPERLIPIDEMIA, UNSPECIFIED Qualifiers: Hyperlipidemia type: pure hypercholesterolemia Qualified Code(s): E78.00 - Pure hypercholesterolemia, unspecified; E78.0 - Pure hypercholesterolemia
[2020-01-10] MEDS: guaiFENesin 200 MG/10 ML 10 ML UNIT-DOSE CUPS PO PRN ×3 (11:13→22:11)
[2020-01-10] MEDS: POLYETHYLENE GLYCOL 3350 119 GM BTL PO SCH ×2 (11:13→11:20)
[2020-01-10] MEDS: PANTOPRAZOLE 40 MG TABLET PO SCH (11:13)
[2020-01-10] MEDS: GABAPENTIN 300 MG CAPSULE PO SCH ×2 (11:13→22:11)
[2020-01-10] MEDS: CLOPIDOGREL BISULFATE 75 MG TABLET (FP) PO SCH (11:13)
[2020-01-10] MEDS: DOCUSATE SODIUM 100 MG CAPSULE (FP) PO SCH (11:13)
[2020-01-10 11:32] LABS: ANISOCYTOSIS 0; MACROCYTOSIS 0; PLATELET ESTIMATE NORMAL
--- NOTE | 2020-01-10 11:45 | CON.PULM ---
Consult Consult Specialty:: PULMONARY Referred by:: Dr Cyr Reason for Consultation:: cough - History of Present Illness Chief Complaint: chills History of Present Illness: 59yo male with h/o HTN, hyperlipidemia, PAD s/p multiple stents/grafts/occluded grafts who was admitted with fevers and chills x 2 days. Also reports bilateral leg pain. Denies shortness of breath but with a nonproductive cough and headache. No nausea/vomiting/diarrhea. Lives with who is well. No recent travel or sick contacts. He is a former smoker. 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 Multiple stents in right leg bypass Flap coverage of right groin graft due to infection) - Alcohol/Substance Use Hx Alcohol Use: No (rarely) History of Substance Use: reports: None - Smoking History Smoking history: Former smoker Have you smoked in the past 12 months: No Aproximately how many cigarettes per day: 0 If you are a former smoker, when did you quit?: 2009 - Social History Usual Living Arrangement: Skilled Nursing ADL: Independent History of Recent Travel: No Home Medications - Allergies Allergies/Adverse Reactions: Allergies Allergy/AdvReac Type Severity Reaction Status Date / Time Penicillins Allergy Verified 01/09/20 09:20 - Home Medications Home Medications: Ambulatory Orders Aspirin [ASA -] 81 mg PO DAILY #30 tab.chew 12/02/17 Simvastatin 20 mg PO HS 03/12/18 Clopidogrel Bisulfate [Plavix -] 75 mg PO DAILY tablet 10/07/18 Enoxaparin [Lovenox -] 100 mg SQ DAILY 01/09/20 Gabapentin [Neurontin -] 300 mg PO BID 01/09/20 Review of Systems - Review of Systems Constitutional: reports: Chills, Fever, Malaise, Weakness Eyes: denies: Recent Change in Vision HENT: denies: Nasal Congestion, Throat Pain Neck: denies: Stiffness, Tenderness Cardiovascular: denies: Chest Pain, Palpitations, Shortness of Breath Respiratory: reports: Cough. denies: Hemoptysis, SOB, Wheezing Gastrointestinal: denies: Abdominal Pain, Nausea, Vomiting Genitourinary: denies: Dysuria, Hematuria Neurological: reports: Headache. denies: Dizziness Endocrine: denies: Unexplained Weight Loss Physical Exam Vital Sings: Vital Signs Temperature 98.9 F 01/10/20 08:00 Pulse Rate 100 H 01/10/20 08:00 Respiratory Rate 20 01/10/20 09:00 Blood Pressure 102/62 01/10/20 08:00 O2 Sat by Pulse Oximetry (%) 98 01/10/20 09:00 Constitutional: Yes: Mild Distress Eyes: Yes: Conjunctiva Clear, EOM Intact HENT: Yes: Atraumatic, Normocephalic Neck: Yes: Supple, Trachea Midline Cardiovascular: Yes: Regular Rate and Rhythm Respiratory: Yes: Diminished (decreased breath sounds at the bases) ...Clubbing: No Gastrointestinal: Yes: Normal Bowel Sounds, Soft. No: Tenderness Edema: No Neurological: Yes: Alert, Oriented Labs: CBC, BMP 01/10/20 06:40 01/10/20 06:00 Imaging - Results Chest X-ray: Report Reviewed, Image Reviewed Cat Scan: Report Reviewed, Image Reviewed (no infiltrates) Assessment/Plan URI r/o COVID19 Sepsis Acute Kidney Injury Hyponatremia PAD HTN Hyperlipidemia - received empiric antibiotics - f/u cultures, serologies - IVF - monitor urine output, creatinine - monitor lytes - continue anticoagulation - O2 to keep Spo2 >90% Thank you for this consult Isra Trinh MD
--- NOTE | 2020-01-10 11:49 | PN ---
Progress Note (short form) - Note Progress Note: ID CONSULT DICTATED STAPH BACTEREMIA/ SEPSIS WOUND INFECTION R/O ENDOVASCULAR INFECTION PVD S/P VASCULAR BYPASS PROCEDURES PCN ALLERGY PENDING C/S EMPIRIC VANCOMYCIN REPEAT BC AM ECHOCARDIOGRAM
[2020-01-10] MEDS: ALBUTEROL SO4 2.5/IPRATROPIUM 0.5 INH SOL 3 ML VIAL.NEB. NEB SCH ×3 (12:36→22:10)
--- NOTE | 2020-01-10 15:36 | ECHO ---
Name: ABIGAIL PERLA Exam:Adult Echocardiogram Study Date: 01/10/2020 02:43 PM Age: 59 yrs Reason For Study: R/O Vegetation Height: 70 in Weight: 170 lb BSA: 1.9 m2 MMode/2D Measurements & Calculations IVSd: 0.89 cm Ao root diam: 3.2 cm LVIDd: 4.2 cm LA dimension: 3.1 cm LVIDs: 3.0 cm ACS: 2.2 cm LVPWd: 0.82 cm LVPWs: 1.0 cm EDV(Teich): 80.8 ml ESV(Teich): 36.2 ml LVOT diam: 2.3 cm LAV (MOD-bp): 51.0 ml TAPSE: 2.6 cm RV S Nabil: 17.6 cm/sec Doppler Measurements & Calculations MV V2 max: 100.1 cm/sec MV E max nabil: 75.0 cm/sec MV max P.0 mmHg MV A max nabil: 84.9 cm/sec MV V2 mean: 74.7 cm/sec MV E/A: 0.88 MV mean P.4 mmHg MV dec time: 0.17 sec MV V2 VTI: 21.2 cm Ao V2 max: 170.4 cm/sec LV V1 max P.2 mmHg Ao max P.6 mmHg LV V1 max: 143.0 cm/sec GALI(V,D): 3.4 cm2 MR max nabil: 466.7 cm/sec TR max nabil: 236.9 cm/sec MR max P.1 mmHg TR max P.5 mmHg PA V2 max: 118.1 cm/sec Med Peak E' Nabil: 8.5 cm/sec PA max P.6 mmHg Med E/e': 8.9 Lat Peak E' Nabil: 10.9 cm/sec Lat E/e': 6.9 Procedure Study Quality: Fair. Left Ventricle The left ventricular size, thickness and function are normal. The left ventricular ejection fraction is normal. Ejection Fraction = 55-60%. The transmitral spectral Doppler flow pattern is suggestive of im paired LV relaxation. Right Ventricle The right ventricle is normal in size and function. Atria Normal left and right atrial size and function. Mitral Valve There is mild mitral valve thickening. There is mild mitral regurgitation. Tricuspid Valve The tricuspid valve is not well visualized, but is grossly normal. There is Trace to mild tricuspid regurgitation. Right ventricular systolic pressure is normal. Aortic Valve There is mild aortic sclerosis.;. No hemodynamically significant valvular aortic stenosis. No aortic regurgitation is present. Pulmonic Valve The pulmonic valve is not well seen, but is grossly normal. Trace pulmonic valvular regurgitation. Great Vessels The aortic root is normal size. Pericardium/Pleura There is no pericardial effusion. Interpretation Summary LV: Normal size and systolic function, EF 55-60%, impaired relaxation RV; normal MV; mildly thickened, mild MR Trace to mild Tr with normal RVSP Mildly sclerotic AV, no dysfunction. Stefanie Poe 01/10/2020 03:36 PM
--- NOTE | 2020-01-10 15:52 | CONSULT ---
Consult Consult Specialty:: Nephrology Reason for Consultation:: alicia - History of Present Illness Chief Complaint: fever and chills History of Present Illness: Pt is a 59 year old male with pmhx of pvd, htn, hld, multiple vascular surgeries who presents with fevers and chills. He was found to have positive blood cultures. He complains of a productive cough. He was found to have elevated [facility] consultant and I was called to evaluate him. He denies dysuria or hematuria. He is awake and alert. He complains of lower ext pain. - History Source History Provided By: Patient, Medical Record - Past Medical History Cardio/Vascular: Yes: HTN, Hyperlipdemia, Other (peripheral arterial disease) Renal/: Yes: Renal Calculi - Past Surgical History Past Surgical History: Yes: Bypass (Right axillo-bifemoral bypass Right femoral to [employer] bypass Multiple stents in right leg bypass Flap coverage of right groin graft due to infection) - Alcohol/Substance Use Hx Alcohol Use: No (rarely) History of Substance Use: reports: None - Smoking History Smoking history: Former smoker Have you smoked in the past 12 months: No Aproximately how many cigarettes per day: 0 If you are a former smoker, when did you quit?: 2009 - Social History Usual Living Arrangement: Retirement ADL: Independent History of Recent Travel: No Home Medications - Allergies Allergies/Adverse Reactions: Allergies Allergy/AdvReac Type Severity Reaction Status Date / Time Penicillins Allergy Verified 01/09/20 09:20 - Home Medications Home Medications: Ambulatory Orders Aspirin [ASA -] 81 mg PO DAILY #30 tab.chew 12/02/17 Simvastatin 20 mg PO HS 03/12/18 Clopidogrel Bisulfate [Plavix -] 75 mg PO DAILY tablet 10/07/18 Enoxaparin [Lovenox -] 100 mg SQ DAILY 01/09/20 Gabapentin [Neurontin -] 300 mg PO BID 01/09/20 Family Medical History Family History: Denies Review of Systems - Review of Systems Constitutional: reports: Chills, Fever, Malaise Eyes: reports: No Symptoms HENT: reports: No Symptoms Neck: reports: No Symptoms Cardiovascular: reports: No Symptoms Respiratory: reports: Cough Gastrointestinal: reports: No Symptoms Genitourinary: reports: No Symptoms Musculoskeletal: reports: No Symptoms Integumentary: reports: No Symptoms Neurological: reports: No Symptoms Endocrine: reports: No Symptoms Hematology/Lymphatic: reports: No Symptoms Psychiatric: reports: No Symptoms Physical Exam Vital Signs: Vital Signs Temperature 99.4 F 01/10/20 14:10 Pulse Rate 99 H 01/10/20 14:10 Respiratory Rate 18 01/10/20 14:10 Blood Pressure 111/65 01/10/20 14:10 O2 Sat by Pulse Oximetry (%) 97 01/10/20 10:00 Constitutional: Yes: Calm Eyes: Yes: Conjunctiva Clear HENT: Yes: Atraumatic Cardiovascular: Yes: S1, S2 Respiratory: Yes: On Nasal O2, Wheezes Gastrointestinal: Yes: Soft Renal/: Yes: WNL Musculoskeletal: Yes: WNL Edema: Yes Edema: LLE: 1+, RLE: 1+ Neurological: Yes: Oriented Psychiatric: Yes: Oriented Labs: CBC, BMP 01/10/20 06:40 01/10/20 06:00 Imaging - Results Chest X-ray: Report Reviewed Problem List - Problems (1) ALICIA (acute kidney injury) Code(s): N17.9 - ACUTE KIDNEY FAILURE, UNSPECIFIED (2) Cough Code(s): R05 - COUGH Assessment/Plan Current Medications Generic Name Dose Route Start Last Admin Trade Name Freq PRN Reason Stop Dose Admin Acetaminophen 325 mg 01/09/20 15:45 01/10/20 03:03 Tylenol - PO 325 mg Q6H PRN Administration PAIN LEVEL 6-10 Albuterol/Ipratropium 1 amp 01/10/20 12:00 01/10/20 15:45 Duoneb - NEB Not Given RQID GERALD Atorvastatin Calcium 80 mg 01/09/20 22:00 01/09/20 22:05 Lipitor - PO 80 mg HS GERALD Administration Clopidogrel Bisulfate 75 mg 01/10/20 10:00 01/10/20 11:13 Plavix - PO 75 mg DAILY GERALD Administration Docusate Sodium 100 mg 01/09/20 15:45 01/10/20 11:13 Colace - PO 100 mg DAILY GERALD Administration Gabapentin 300 mg 01/09/20 22:00 01/10/20 11:13 Neurontin - PO 300 mg BID GERALD Administration Guaifenesin 10 ml 01/10/20 11:30 01/10/20 11:13 Robitussin - PO 10 ml Q6H PRN Administration COUGH Heparin Sodium (Porcine) 1,000 unit 01/09/20 15:39 01/10/20 02:42 Heparin - IVPUSH 1,000 unit PRN PRN Administration Heparin Heparin Sodium (Porcine) 5,000 unit 01/09/20 15:39 Heparin - IVPUSH PRN PRN Heparin Heparin Sodium (Porcine) 25, 500 mls @ 20 mls/hr 01/09/20 15:45 01/10/20 02:43 000 unit/ Sodium Chloride IV 1,100 unit/hr TITR GERALD 22 mls/hr Administration Protocol 1,000 UNIT/HR Sodium Chloride 1,000 mls @ 100 mls/hr 01/09/20 15:45 01/09/20 22:50 Normal Saline - IV 100 mls/hr ASDIR [facility] Administration Vancomycin HCl 1,250 mg/ 250 mls @ 166.667 mls/hr 01/10/20 12:00 Dextrose IVPB Q12H GERAL[facility] Protocol Oxycodone HCl 5 mg 01/09/20 15:45 01/10/20 09:13 Roxicodone - PO 5 mg Q6H PRN Administration PAIN LEVEL 6-10 Pantoprazole Sodium 40 mg 01/10/20 10:00 01/10/20 11:13 Protonix - PO 40 mg DAILY GERALD Administration Polyethylene Glycol 17 gm 01/09/20 15:45 01/10/20 11:20 Miralax (For Daily Use) - PO Not Given DAILY GERALD Senna 1 tab 01/09/20 22:00 01/09/20 22:06 Senna - PO Not Given HS GERALD Impression 1. alicia resolved 2. bacteremia 3. htn 4. hld 5. pvd Plan - [facility] consultant is improved - ua neg for blood or protein - monitor lytes - avoid nephrotoxins - monitor volume status on fluids - monitor bp
[2020-01-10] MEDS: VANCOMYCIN 1,250 MG in DEXTROSE 5%-WATER - 250 ML IVPB SCH (16:29)
[2020-01-10] MEDS: SODIUM CHLORIDE 1,000 ML IV SCH (16:36)
--- NOTE | 2020-01-10 17:00 | CONS ---
DATE OF CONSULTATION: DATE OF DICTATION: 01/10/2020 INFECTIOUS DISEASE CONSULTATION HISTORY OF PRESENT ILLNESS: The patient is a 59-year-old male evaluated for fever. He has a complicated past medical history which include peripheral vascular disease status post multiple vascular bypass procedures. He has a history of right axillofemoral and femorofemoral bypass, right femoral tibial grafts with multiple episodes of graft thrombosis. He was recently hospitalized at [facility] with thrombosis. He underwent angioplasty. He reports approximately 2 weeks later he required a repeat procedure for rethrombosis. Patient states that he had been discharged from [facility] approximately 3 weeks ago. He reports being well during this time. On January 07, he developed generalized weakness, generalized pain associated with chills, dry cough, and loose bowel movements. He presented to the emergency room, where he was noted to have a white blood cell count of 19.3. Blood cultures were obtained, and now are positive all 4 bottle gram-positive cocci in clusters. In addition, a wound culture is also positive for staph species. According to Dr. Stoner's note, he was seen as an outpatient on December, at which time his grafts were patent. He had some swelling and erythema over the right groin surgical incision but no fluctuance or drainage. On review of his previous cultures, there does not appear to be a history of staph infection in the past. He has grown enterococcus and Corynebacterium from the urine and skin, respectively. PAST MEDICAL HISTORY: Positive for peripheral vascular disease, DVT, hypertension, hyperlipidemia, nephrolithiasis. PAST SURGICAL HISTORY: Status post COPD, congestive heart failure. ALLERGIES: PENICILLIN. Nature of the allergy not known. MEDICATION: Include vancomycin, cefepime, albuterol, Plavix, heparin, Lipitor, morphine, oxycodone, Colace, Protonix. SOCIAL HISTORY: He resides in the community. He is a former smoker. He reports stopping many years ago. Rare ETOH usage. SYSTEMS REVIEW: Neurologic: No loss of consciousness, seizure activity, focal weakness. Cardiac: Negative chest pain or palpitations. Respiratory: Positive for dry cough. Gastrointestinal: Negative vomiting or diarrhea. Genitourinary: Negative for urinary tract infection. LABORATORY DATA: White count on admission 19.3, hematocrit 36.4, platelet count 186. BUN 17, creatinine 1.0. Urinalysis negative. Chest x-ray negative. CAT scan of the chest negative for acute pathology. CAT scan of the right lower extremity showed multiple vascular grafts including a right axillary femoral graft and a femorofemoral graft that were patent. The occluded right-sided graft present. No evidence of abscess. Postoperative scarring is noted in the subcutaneous tissues. PHYSICAL EXAMINATION: General: On physical examination he is chronically ill appearing. Vital signs: Temperature 98.9, T-max 102.9, blood pressure 102/62, pulse 100 regular, respirations 20 per minute. HEENT: Sclerae anicteric. Cardiovascular: Heart sounds S1, S2. Lungs: Scattered rhonchi. Abdomen: Soft, nontender. Extremities: Positive for multiple healed surgical scars on lower extremities bilaterally. Genitourinary: Examination of the right groin, there is a surgical wound which appears to have partial dehiscence approximately 1 cm with surrounding erythema. There is no expressible pus or foul order. No crepitus or fluctuance. IMPRESSION: 1. Staphylococcus bacteremia/sepsis, likely secondary to skin source. 2. Wound infection. 3. Peripheral vascular disease status post vascular bypass procedures. 4. PENICILLIN allergy. Await identification of blood isolate. Empiric antibiotic coverage with vancomycin pending cultures. Repeat blood cultures tomorrow. Echocardiogram. Surgical followup. Thank you for the kind referral. VERNA VALENCIA M.D. [id number]
[2020-01-10] MEDS: ATORVASTATIN CA 80 MG TABLET (FP) PO SCH (22:11)
[2020-01-10] MEDS: SENNOSIDES 8.6MG TABLET (FP) PO SCH (22:15)
[2020-01-11] MEDS: HEPARIN - 25,000 UNIT in SODIUM CHLORIDE 495 ML IV SCH (00:07)
[2020-01-11] MEDS: HEPARIN NA (PORCINE) 5,000 UNITS/ML 1ML VIAL IVPUSH PRN (00:10)
[2020-01-11] MEDS: VANCOMYCIN 1,250 MG in DEXTROSE 5%-WATER - 250 ML IVPB SCH ×2 (00:19→11:11)
[2020-01-11] MEDS: SODIUM CHLORIDE 1,000 ML IV SCH ×3 (04:04→18:46)
[2020-01-11] MEDS: oxyCODONE HCL 5 MG TABLET PO PRN ×3 (04:55→21:28)
[2020-01-11] MEDS: ACETAMINOPHEN 325 MG TABLET (FP) PO PRN ×3 (04:56→21:29)
[2020-01-11 08:15] LABS: HEMOGLOBIN 11.2 GM/dL (11.7-16.9); MCH 30.3 pg (25.7-33.7); MCHC 33.1 g/dl (32.0-35.9); MEAN CELL VOLUME 91.6 fl (80-96); MEAN PLT VOLUME 7.7 fl (7.5-11.1); PLATELET COUNT 129 K/MM3 (134-434); RBC 3.71 M/mm3 (4.00-5.60); RDW 16.3 % (11.9-15.9); WHITE BLOOD COUNT 7.5 K/mm3 (4.0-10.0)
[2020-01-11] MEDS: ALBUTEROL SO4 2.5/IPRATROPIUM 0.5 INH SOL 3 ML VIAL.NEB. NEB SCH ×3 (08:22→15:50)
[2020-01-11] MEDS: PANTOPRAZOLE 40 MG TABLET PO SCH (09:45)
[2020-01-11] MEDS: CLOPIDOGREL BISULFATE 75 MG TABLET (FP) PO SCH (09:45)
[2020-01-11] MEDS: GABAPENTIN 300 MG CAPSULE PO SCH ×2 (09:45→21:23)
[2020-01-11] MEDS: DOCUSATE SODIUM 100 MG CAPSULE (FP) PO SCH (09:46)
[2020-01-11] MEDS: POLYETHYLENE GLYCOL 3350 119 GM BTL PO SCH (09:46)
--- NOTE | 2020-01-11 10:01 | PN ---
Progress Note, Physician History of Present Illness: pulmonary alert,still not feeling well + cough,-cp,-sob,afebrile - Current Medication List Current Medications: Active Medications Acetaminophen (Tylenol -) 325 mg PO Q6H PRN PRN Reason: PAIN LEVEL 6-10 Last Admin: 01/11/20 04:56 Dose: 325 mg Documented by: Albuterol/Ipratropium (Duoneb -) 1 amp NEB RQID [facility] Last Admin: 01/11/20 08:22 Dose: 1 amp Documented by: Atorvastatin Calcium (Lipitor -) 80 mg PO HS [facility] Last Admin: 01/10/20 22:11 Dose: 80 mg Documented by: Clopidogrel Bisulfate (Plavix -) 75 mg PO DAILY [facility] Last Admin: 01/11/20 09:45 Dose: 75 mg Documented by: Docusate Sodium (Colace -) 100 mg PO DAILY [facility] Last Admin: 01/11/20 09:46 Dose: Not Given Documented by: Gabapentin (Neurontin -) 300 mg PO BID [facility] Last Admin: 01/11/20 09:45 Dose: 300 mg Documented by: Guaifenesin (Robitussin -) 10 ml PO Q6H PRN PRN Reason: COUGH Last Admin: 01/10/20 22:11 Dose: 10 ml Documented by: Heparin Sodium (Porcine) (Heparin -) 1,000 unit IVPUSH PRN PRN PRN Reason: Heparin Last Admin: 01/11/20 00:10 Dose: 1,000 unit Documented by: Heparin Sodium (Porcine) (Heparin -) 5,000 unit IVPUSH PRN PRN PRN Reason: Heparin Last Admin: 01/10/20 16:30 Dose: 5,000 unit Documented by: Heparin Sodium (Porcine) 25, (000 unit/ Sodium Chloride) 500 mls @ 20 mls/hr IV TITR GERALD; Protocol Last Admin: 01/11/20 00:07 Dose: 1,350 unit/hr, 27 mls/hr Documented by: Sodium Chloride (Normal Saline -) 1,000 mls @ 100 mls/hr IV ASDIR [facility] Last Admin: 01/11/20 04:04 Dose: 100 mls/hr Documented by: Vancomycin HCl 1,250 mg/ (Dextrose) 250 mls @ 166.667 mls/hr IVPB Q12H GERALD; Protocol Last Admin: 01/11/20 00:19 Dose: 166.667 mls/hr Documented by: Oxycodone HCl (Roxicodone -) 5 mg PO Q6H PRN PRN Reason: PAIN LEVEL 6-10 Last Admin: 01/11/20 04:55 Dose: 5 mg Documented by: Pantoprazole Sodium (Protonix -) 40 mg PO DAILY [facility] Last Admin: 01/11/20 09:45 Dose: 40 mg Documented by: Polyethylene Glycol (Miralax (For Daily Use) -) 17 gm PO DAILY [facility] Last Admin: 01/11/20 09:46 Dose: Not Given Documented by: Senna (Senna -) 1 tab PO HS [facility] Last Admin: 01/10/20 22:15 Dose: Not Given Documented by: - Objective Vital Signs: Vital Signs Temperature 98.1 F 01/11/20 05:00 Pulse Rate 94 H 01/11/20 05:00 Respiratory Rate 20 01/11/20 05:00 Blood Pressure 92/65 01/11/20 05:00 O2 Sat by Pulse Oximetry (%) 98 01/10/20 21:00 Constitutional: Yes: Well Nourished, Calm Eyes: Yes: WNL HENT: Yes: WNL Neck: Yes: WNL Cardiovascular: Yes: Regular Rate and Rhythm, S1, S2 Labs: CBC, BMP 01/11/20 05:52 01/10/20 06:00 INR, PTT INR 1.35 (0.83-1.09) H 01/09/20 09:40 Problem List - Problems (1) Staphylococcus aureus bacteremia with sepsis Code(s): A41.01 - SEPSIS DUE TO METHICILLIN SUSCEPTIBLE STAPHYLOCOCCUS AUREUS (2) ALICIA (acute kidney injury) Code(s): N17.9 - ACUTE KIDNEY FAILURE, UNSPECIFIED (3) Cough Code(s): R05 - COUGH (4) HLD (hyperlipidemia) Code(s): E78.5 - HYPERLIPIDEMIA, UNSPECIFIED Qualifiers: Hyperlipidemia type: pure hypercholesterolemia Qualified Code(s): E78.00 - Pure hypercholesterolemia, unspecified; E78.0 - Pure hypercholesterolemia Assessment/Plan Assessment/Plan URI COVID19 PCR NEGATIVE Sepsis/Bacteremia Staph aureus Acute Kidney Injury improved Hyponatremia improved PAD HTN Hyperlipidemia - antibiotics - IVF - monitor urine output, creatinine - monitor lytes - anticoagulation - O2 to keep Spo2 >90% DR GONG
[2020-01-11] MEDS: guaiFENesin 200 MG/10 ML 10 ML UNIT-DOSE CUPS PO PRN ×2 (11:30→18:59)
--- NOTE | 2020-01-11 12:04 | PN ---
Progress Note, Physician Chief Complaint: Right Axillo-femoral and femorofemoral bypass Right fem-tibial graft with multiple episodes of graft thrombosis Right groin post op infection ALICIA Bacteremia History of Present Illness: NAD Denies any pain, N/V - Current Medication List Current Medications: Active Medications Acetaminophen (Tylenol -) 325 mg PO Q6H PRN PRN Reason: PAIN LEVEL 6-10 Last Admin: 01/11/20 04:56 Dose: 325 mg Documented by: Albuterol/Ipratropium (Duoneb -) 1 amp NEB RQID [facility] Last Admin: 01/11/20 11:46 Dose: 1 amp Documented by: Atorvastatin Calcium (Lipitor -) 80 mg PO HS [facility] Last Admin: 01/10/20 22:11 Dose: 80 mg Documented by: Clopidogrel Bisulfate (Plavix -) 75 mg PO DAILY [facility] Last Admin: 01/11/20 09:45 Dose: 75 mg Documented by: Docusate Sodium (Colace -) 100 mg PO DAILY [facility] Last Admin: 01/11/20 09:46 Dose: Not Given Documented by: Enoxaparin Sodium (Lovenox -) 80 mg SQ BID [facility] Gabapentin (Neurontin -) 300 mg PO BID [facility] Last Admin: 01/11/20 09:45 Dose: 300 mg Documented by: Guaifenesin (Robitussin -) 10 ml PO Q6H PRN PRN Reason: COUGH Last Admin: 01/11/20 11:30 Dose: 10 ml Documented by: Sodium Chloride (Normal Saline -) 1,000 mls @ 100 mls/hr IV ASDIR [facility] Last Admin: 01/11/20 04:04 Dose: 100 mls/hr Documented by: Vancomycin HCl 1,250 mg/ (Dextrose) 250 mls @ 166.667 mls/hr IVPB Q12H GERALD; Pr otocol Last Admin: 01/11/20 11:11 Dose: 166.667 mls/hr Documented by: Oxycodone HCl (Roxicodone -) 5 mg PO Q6H PRN PRN Reason: PAIN LEVEL 6-10 Last Admin: 01/11/20 04:55 Dose: 5 mg Documented by: Pantoprazole Sodium (Protonix -) 40 mg PO DAILY [facility] Last Admin: 01/11/20 09:45 Dose: 40 mg Documented by: Polyethylene Glycol (Miralax (For Daily Use) -) 17 gm PO DAILY [facility] Last Admin: 01/11/20 09:46 Dose: Not Given Documented by: Sandra (Senna -) 1 tab PO HS [facility] Last Admin: 01/10/20 22:15 Dose: Not Given Documented by: - Objective Vital Signs: Vital Signs Temperature 98.4 F 01/11/20 09:00 Pulse Rate 89 01/11/20 09:00 Respiratory Rate 18 01/11/20 09:00 Blood Pressure 91/58 L 01/11/20 09:00 O2 Sat by Pulse Oximetry (%) 97 01/11/20 09:00 Constitutional: Yes: Well Nourished, No Distress, Calm Cardiovascular: Yes: Regular Rate and Rhythm Respiratory: Yes: Regular, CTA Bilaterally Gastrointestinal: Yes: Normal Bowel Sounds, Soft Genitourinary: Yes: WNL Musculoskeletal: Yes: Muscle Weakness Extremities: Yes: WNL Edema: No Peripheral Pulses WNL: Yes Wound/Incision: Yes: Dressing Removed, Draining (mild malodourous purulant drainage), Reddened, Other (dressign replaced) Neurological: Yes: Alert, Oriented Psychiatric: Yes: Alert, Oriented Labs: CBC, BMP 01/11/20 05:52 01/10/20 06:00 INR, PTT INR 1.35 (0.83-1.09) H 01/09/20 09:40 Problem List - Problems (1) ALICIA (acute kidney injury) Assessment/Plan: -resolved -Monitor trend -Continue IVF for now Problems reviewed: Yes Code(s): N17.9 - ACUTE KIDNEY FAILURE, UNSPECIFIED (2) Post-operative infection Assessment/Plan: -ID consult on board -IV Vanco -Cultures: Microbiology 01/09/20 10:10 Thigh - Right Gram Stain - Final 01/09/20 10:10 Thigh - Right Wound Culture - Preliminary Staphylococcus Aureus Pending Organism 01/09/20 09:40 Blood - Peripheral Venous Blood Culture - Preliminary Staphylococcus Aureus 01/09/20 09:40 Blood - Peripheral Venous Blood Culture - Preliminary Staphylococcus Latex Coag Pos 01/09/20 11:50 Urine - Urine Clean Catch Urine Culture - Final NO GROWTH OBTAINED -Vascular surgery on board -Afebrile -leukocytosis improved Problems reviewed: Yes Code(s): T81.40XA - INFECTION FOLLOWING A PROCEDURE, UNSPECIFIED, INIT Qualifiers: Encounter type: initial encounter Postoperative infection type: unspecified type Qualified Code(s): T81.40XA - Infection following a procedure, unspecified, initial encounter (3) Staphylococcus aureus bacteremia with sepsis Assessment/Plan: as above Problems reviewed: Yes Code(s): A41.01 - SEPSIS DUE TO METHICILLIN SUSCEPTIBLE STAPHYLOCOCCUS AUREUS (4) Arterial occlusion, lower extremity Problems reviewed: Yes Code(s): I70.209 - UNSP ATHSCL ANIAK ARTERIES OF EXTREMITIES, UNSP EXTREMITY (5) HLD (hyperlipidemia) Assessment/Plan: -HDL at 9 -LDL at 35 -Decrease atorvastatin to 40 mg po HS Problems reviewed: Yes Code(s): E78.5 - HYPERLIPIDEMIA, UNSPECIFIED Qualifiers: Hyperlipidemia type: pure hypercholesterolemia Qualified Code(s): E78.00 - Pure hypercholesterolemia, unspecified; E78.0 - Pure hypercholesterolemia Assessment/Plan See problem list
--- NOTE | 2020-01-11 13:33 | PN ---
Progress Note (short form) - Note Progress Note: Contacted by attending Dr Stoner to see patient. Briefly, pt is a 59 y/o M vasculopath with multiple prior vascular interventions/grafts to RLE (h/o aorto-bifem bypass in 2011, R femoral-tibial bypass in October 2017, s/p Right ilio-tibial bypass with non-reversed saphenous vein (04/08/18), s/p Right axillary-fem and fem-fem bypass (07/04), s/p Bypass from axillary graft to tibial bypass graft w/ SVG) on Lovenox with h/o multiple graft occlusions s/p thrombectomies/lysis. Pt reports he was seen at [facility] by Dr Stoner's partner (Dr Back) in the beginning of December after occluding his RLE graft. Pt was treated with lysis/angioplasty and graft was successfully opened. Pt reports he was doing fine until this past Friday when he began feeling weak and had chills. Pt presented Friday and was found to have sepsis. Evaluated by Dr Stoner (see note for details). Currently, pt last febrile yesterday evening to 102.5, leukocytosis resolved at this time (no diff on cbc today to evaluate for shift). Wound Culture pending Bacteremic (Staph aureus), echo without vegetations Wound with moderate purulent drainage on 4x4s. +purulent drainage expressed from wound. ++TTP, + surrounding erythema, no crepitus appreciated. No evidence of graft exposure. No foul odor, no palpable collection appreciated. New 4x4 placed. Continue vancomycin per ID Dr Stoner contacted regarding above, recommends Betadine gauze to wound Dr Ponce aware, covering until Friday, 12/16 If wound worsens, transfer to [facility] Pt aware of plan and agrees
--- NOTE | 2020-01-11 13:46 | CON.CARD ---
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 Has felt bad the last few days, pain all over lower body. Had RLE thrombectomy in 11/2019. denies chest pain, palps, dizziness, dyspnea pmh: per hpi psh: le bypass social: +tob ros: per hpi; no nvd, fever, cough, nasal congestion, gib, hematuria, dysuria fam: no premature cad, scd Allergies Allergy/AdvReac Type Severity Reaction Status Date / Time Penicillins Allergy Verified 01/09/20 09:20 Home Medications Medication Instructions Recorded Aspirin [ASA -] 81 mg PO DAILY #30 tab.chew 12/02/17 Simvastatin 20 mg PO HS 03/12/18 Clopidogrel Bisulfate [Plavix -] 75 mg PO DAILY tablet 10/07/18 Enoxaparin [Lovenox -] 100 mg SQ DAILY 01/09/20 Gabapentin [Neurontin -] 300 mg PO BID 01/09/20 Vital Signs Period Temp Pulse Resp BP Sys/White Pulse Ox Last 24 Hr 98.1 F-101.4 F 87-111 18-20 91-111/56-69 97-98 nad no jvd rrr s1s2 no mrg cta bl nl eff aaox3 no le edema no carotid bruits, weak distal pulses no jaundice diaphoresis abd nt nd pos bs Laboratory Last Values WBC 7.5 K/mm3 (4.0-10.0) 01/11/20 05:52 RBC 3.71 M/mm3 (4.00-5.60) L 01/11/20 05:52 Hgb 11.2 GM/dL (11.7-16.9) L 01/11/20 05:52 Hct 34.0 % (35.4-49) L 01/11/20 05:52 MCV 91.6 fl (80-96) 01/11/20 05:52 MCH 30.3 pg (25.7-33.7) 01/11/20 05:52 MCHC 33.1 g/dl (32.0-35.9) 01/11/20 05:52 RDW 16.3 % (11.9-15.9) H 01/11/20 05:52 Plt Count 129 K/MM3 (134-434) L D 01/11/20 05:52 MPV 7.7 fl (7.5-11.1) 01/11/20 05:52 Absolute Neuts (auto) 9.7 K/mm3 (1.5-8.0) H 01/10/20 06:40 Neutrophils % 92.9 % (42.8-82.8) H 01/10/20 06:40 Neutrophils % (Manual) 48.5 % (42.8-82.8) D 01/10/20 06:40 Band Neutrophils % 38.1 % 01/10/20 06:40 Lymphocytes % 4.4 % (8-40) L D 01/10/20 06:40 Lymphocytes % (Manual) 6.2 % (8-40) L D 01/10/20 06:40 Monocytes % 2.4 % (3.8-10.2) L 01/10/20 06:40 Monocytes % (Manual) 0 % (3.8-10.2) L D 01/10/20 06:40 Eosinophils % 0.0 % (0-4.5) 01/10/20 06:40 Eosinophils % (Manual) 0.0 % (0-4.5) 01/10/20 06:40 Basophils % 0.3 % (0-2.0) 01/10/20 06:40 Basophils % (Manual) 0.0 % (0-2.0) 01/10/20 06:40 Myelocytes % (Man) 0 % (0-2) D 01/10/20 06:40 Promyelocytes % (Man) 0 % (0-2) 01/10/20 06:40 Blast Cells % (Manual) 0 % (0-0) 01/10/20 06:40 Nucleated RBC % 0 % (0-0) 01/10/20 06:40 Metamyelocytes 7 % (0-2) H D 01/10/20 06:40 Hypochromia 0 01/10/20 06:40 Platelet Estimate Normal 01/10/20 06:40 Polychromasia 0 01/10/20 06:40 Poikilocytosis 0 01/10/20 06:40 Anisocytosis 0 01/10/20 06:40 Microcytosis 0 01/10/20 06:40 Macrocytosis 0 01/10/20 06:40 PT with INR 16.00 SEC (9.7-13.0) H 01/09/20 09:40 INR 1.35 (0.83-1.09) H 01/09/20 09:40 PTT (Actin FS) 52.9 SECONDS (25.2-36.5) H 01/11/20 05:52 VBG pH 7.381 (7.310-7.410) 01/09/20 09:40 POC VBG pCO2 36.7 mmHg (38-52) L 01/09/20 09:40 POC VBG pO2 24.4 mmHg (28-48) L 01/09/20 09:40 VBG HCO3 21.3 mmol/L (23-29) L 01/09/20 09:40 VBG O2 Sat (Clarisa) 43.0 % (70-80) L 01/09/20 09:40 VBG Base Excess -3.2 mmol/L (-2-2) L 01/09/20 09:40 Sodium 136 mmol/L (136-145) 01/10/20 06:00 Potassium 3.8 mmol/L (3.5-5.1) 01/10/20 06:00 Chloride 106 mmol/L (98-107) 01/10/20 06:00 Carbon Dioxide 18 mmol/L (21-32) L 01/10/20 06:00 Anion Gap 11 MMOL/L (8-16) 01/10/20 06:00 BUN 17.0 mg/dL (7-18) 01/10/20 06:00 Creatinine 1.0 mg/dL (0.55-1.3) 01/10/20 06:00 Est GFR (CKD-EPI)AfAm 94.39 01/10/20 06:00 Est GFR (CKD-EPI)NonAf 81.44 01/10/20 06:00 Random Glucose 118 mg/dL (74-106) H 01/10/20 06:00 Hemoglobin A1c % 6.1 % (4.2-6.3) 01/10/20 06:40 Lactic Acid 2.0 mmol/L (0.4-2.0) 01/09/20 09:40 Calcium 7.6 mg/dL (8.5-10.1) L 01/10/20 06:00 Total Bilirubin 0.6 mg/dL (0.2-1) 01/10/20 06:00 AST 76 U/L (15-37) H 01/10/20 06:00 ALT 56 U/L (13-61) 01/10/20 06:00 Alkaline Phosphatase 87 U/L (45-117) 01/10/20 06:00 Creatine Kinase 482 U/L (26-308) H 01/10/20 06:00 Creatine Kinase Index No Result Required. 01/10/20 06:00 CK-MB (CK-2) < 1.0 ng/mL (0.5-3.6) 01/10/20 06:00 Troponin I < 0.02 ng/ml (0.00-0.05) 01/09/20 09:40 Troponin I Cancelled 01/09/20 09:40 Total Protein 5.6 g/dl (6.4-8.2) L 01/10/20 06:00 Albumin 2.4 g/dl (3.4-5.0) L 01/10/20 06:00 Triglycerides 301 mg/dL (0-150) H 01/10/20 06:00 Cholesterol 103 mg/dL (50-200) 01/10/20 06:00 Total LDL Cholesterol 35 mg/dL (5-100) 01/10/20 06:00 HDL Cholesterol 8 mg/dL (40-60) L 01/10/20 06:00 TSH 0.39 uIU/ml (0.358-3.74) 01/10/20 06:00 Urine Color Yellow 01/09/20 11:50 Urine Appearance Clear 01/09/20 11:50 Urine pH 5.0 (5.0-8.0) 01/09/20 11:50 Ur Specific [place] 1.010 (1.010-1.035) 01/09/20 11:50 Urine Protein Negative (NEGATIVE) 01/09/20 11:50 Urine Glucose (UA) Negative (NEGATIVE) 01/09/20 11:50 Urine Ketones Negative (NEGATIVE) 01/09/20 11:50 Urine Blood Negative (NEGATIVE) 01/09/20 11:50 Urine Nitrite Negative (NEGATIVE) 01/09/20 11:50 Urine Bilirubin Negative (NEGATIVE) 01/09/20 11:50 Urine Urobilinogen 0.2 mg/dL (0.2-1.0) 01/09/20 11:50 Ur Leukocyte Esterase Negative (NEGATIVE) 01/09/20 11:50 Stool Occult Blood Negative (NEGATIVE) 01/09/20 10:10 COVID-19 ([facility]) Not detected (Not Detected) 01/09/20 09:40 Blood Type A POSITIVE 01/09/20 09:40 Antibody Screen Negative 01/09/20 09:40 CT chest: mild chronic lung dz with no acute pathology ecg: sr, nl intervals, no ischemic changes mibi 11/2016: no ischemia, lvef 80 echo 12/2019 nl LV function, impaired relaxation, nl RV, mild MR, tr to mild TR, mildly sclerotic AV no dysfunction a/p: 59 m hx htn, pad here with b/l leg pain, fever fever, wound infection, staph bacteremia, sepsis - no vegetation on echo - repeat bcx pending - on IV abx per primary, ID pad, history of graft thrombosis - cont aspirin, plavix, and therapeutic lovenox per vascular htn: -not on meds at home -soft BPs here, monitor ALICIA - likely prerenal, improved with IVF - renal following
--- NOTE | 2020-01-11 14:13 | PN ---
Progress Note, Physician History of Present Illness: Pt seen and examined at bedside. He is awake and alert. He feels that his breathing is improved. - Current Medication List Current Medications: Active Medications Acetaminophen (Tylenol -) 325 mg PO Q6H PRN PRN Reason: PAIN LEVEL 6-10 Last Admin: 01/11/20 04:56 Dose: 325 mg Documented by: Albuterol/Ipratropium (Duoneb -) 1 amp NEB RQID [facility] Last Admin: 01/11/20 11:46 Dose: 1 amp Documented by: Atorvastatin Calcium (Lipitor -) 40 mg PO [facility] Clopidogrel Bisulfate (Plavix -) 75 mg PO DAILY [facility] Last Admin: 01/11/20 09:45 Dose: 75 mg Documented by: Docusate Sodium (Colace -) 100 mg PO DAILY [facility] Last Admin: 01/11/20 09:46 Dose: Not Given Documented by: Enoxaparin Sodium (Lovenox -) 80 mg SQ BID [facility] Gabapentin (Neurontin -) 300 mg PO BID [facility] Last Admin: 01/11/20 09:45 Dose: 300 mg Documented by: Guaifenesin (Robitussin -) 10 ml PO Q6H PRN PRN Reason: COUGH Last Admin: 01/11/20 11:30 Dose: 10 ml Documented by: Sodium Chloride (Normal Saline -) 1,000 mls @ 100 mls/hr IV ASDIR [facility] Last Admin: 01/11/20 04:04 Dose: 100 mls/hr Documented by: Vancomycin HCl 1,250 mg/ (Dextrose) 250 mls @ 166.667 mls/hr IVPB Q12H [facility]; Protocol Last Admin: 01/11/20 11:11 Dose: 166.667 mls/hr Documented by: Oxycodone HCl (Roxicodone -) 5 mg PO Q6H PRN PRN Reason: PAIN LEVEL 6-10 Last Admin: 01/11/20 04:55 Dose: 5 mg Documented by: Pantoprazole Sodium (Protonix -) 40 mg PO DAILY [facility] Last Admin: 01/11/20 09:45 Dose: 40 mg Documented by: Polyethylene Glycol (Miralax (For Daily Use) -) 17 gm PO DAILY [facility] Last Admin: 01/11/20 09:46 Dose: Not Given Documented by: Senna (Senna -) 1 tab PO [facility] Last Admin: 01/10/20 22:15 Dose: Not Given Documented by: - Objective Vital Signs: Vital Signs Temperature 98.4 F 01/11/20 09:00 Pulse Rate 89 01/11/20 09:00 Respiratory Rate 18 01/11/20 09:00 Blood Pressure 91/58 L 01/11/20 09:00 O2 Sat by Pulse Oximetry (%) 97 01/11/20 09:00 Constitutional: Yes: Calm Eyes: Yes: Conjunctiva Clear HENT: Yes: Atraumatic Neck: Yes: Supple Cardiovascular: Yes: S1, S2 Respiratory: Yes: On Nasal O2, Wheezes Gastrointestinal: Yes: Soft Genitourinary: Yes: WNL Musculoskeletal: Yes: WNL Edema: No Neurological: Yes: Oriented Psychiatric: Yes: Oriented Labs: CBC, BMP 01/11/20 05:52 01/10/20 06:00 INR, PTT INR 1.35 (0.83-1.09) H 01/09/20 09:40 Problem List - Problems (1) ALICIA (acute kidney injury) Code(s): N17.9 - ACUTE KIDNEY FAILURE, UNSPECIFIED (2) Cough Code(s): R05 - COUGH Assessment/Plan Current Medications Generic Name Dose Route Start Last Admin Trade Name Freq PRN Reason Stop Dose Admin Acetaminophen 325 mg 01/09/20 15:45 01/11/20 04:56 Tylenol - PO 325 mg Q6H PRN Administration PAIN LEVEL 6-10 Albuterol/Ipratropium 1 amp 01/10/20 12:00 01/11/20 11:46 Duoneb - NEB 1 amp RQID [facility] Administration Atorvastatin Calcium 40 mg 01/11/20 22:00 Lipitor - PO HS [facility] Clopidogrel Bisulfate 75 mg 01/10/20 10:00 01/11/20 09:45 Plavix - PO 75 mg DAILY [facility] Administration Docusate Sodium 100 mg 01/09/20 15:45 01/11/20 09:46 Colace - PO Not Given DAILY [facility] Enoxaparin Sodium 80 mg 01/11/20 22:00 Lovenox - SQ BID [facility] Gabapentin 300 mg 01/09/20 22:00 01/11/20 09:45 Neurontin - PO 300 mg BID [facility] Administration Guaifenesin 10 ml 01/10/20 11:30 01/11/20 11:30 Robitussin - PO 10 ml Q6H PRN Administration COUGH Sodium Chloride 1,000 mls @ 100 mls/hr 01/09/20 15:45 01/11/20 04:04 Normal Saline - IV 100 mls/hr ASDIR [facility] Administration Vancomycin HCl 1,250 mg/ 250 mls @ 166.667 mls/hr 01/10/20 12:00 01/11/20 11:11 Dextrose IVPB 166.667 mls/hr Q12H [facility] Administration Protocol Oxycodone HCl 5 mg 01/09/20 15:45 01/11/20 04:55 Roxicodone - PO 5 mg Q6H PRN Administration PAIN LEVEL 6-10 Pantoprazole Sodium 40 mg 01/10/20 10:00 01/11/20 09:45 Protonix - PO 40 mg DAILY [facility] Administration Polyethylene Glycol 17 gm 01/09/20 15:45 01/11/20 09:46 Miralax (For Daily Use) - PO Not Given DAILY [facility] Senna 1 tab 01/09/20 22:00 01/10/20 22:15 Senna - PO Not Given HS [facility] Impression 1. alicia resolved 2. bacteremia 3. htn 4. hld 5. pvd Plan - renal function stable - check bmp in am - avoid nephrotoxins - monitor volume status on fluids - monitor bp
--- NOTE | 2020-01-11 15:22 | PN ---
Progress Note, Physician History of Present Illness: AWAKE, ALERT IM BED R GROIN PAIN RELIEVED WITH MEDS TEMP NOTED WBC IMPROVED BC PRELIM MSSA WOUND C/S PENDING - Current Medication List Current Medications: Active Medications Acetaminophen (Tylenol -) 325 mg PO Q6H PRN PRN Reason: PAIN LEVEL 6-10 Last Admin: 01/11/20 14:55 Dose: 325 mg Documented by: Albuterol/Ipratropium (Duoneb -) 1 amp NEB RQID [facility] Last Admin: 01/11/20 11:46 Dose: 1 amp Documented by: Atorvastatin Calcium (Lipitor -) 40 mg PO [facility] Clopidogrel Bisulfate (Plavix -) 75 mg PO DAILY [facility] Last Admin: 01/11/20 09:45 Dose: 75 mg Documented by: Docusate Sodium (Colace -) 100 mg PO DAILY [facility] Last Admin: 01/11/20 09:46 Dose: Not Given Documented by: Enoxaparin Sodium (Lovenox -) 80 mg SQ BID [facility] Gabapentin (Neurontin -) 300 mg PO BID [facility] Last Admin: 01/11/20 09:45 Dose: 300 mg Documented by: Guaifenesin (Robitussin -) 10 ml PO Q6H PRN PRN Reason: COUGH Last Admin: 01/11/20 11:30 Dose: 10 ml Documented by: Sodium Chloride (Normal Saline -) 1,000 mls @ 100 mls/hr IV ASDIR [facility] Last Admin: 01/11/20 04:04 Dose: 100 mls/hr Documented by: Vancomycin HCl 1,250 mg/ (Dextrose) 250 mls @ 166.667 mls/hr IVPB Q12H [facility]; Protocol Last Admin: 01/11/20 11:11 Dose: 166.667 mls/hr Documented by: Oxycodone HCl (Roxicodone -) 5 mg PO Q6H PRN PRN Reason: PAIN LEVEL 6-10 Last Admin: 01/11/20 14:55 Dose: 5 mg Documented by: Pantoprazole Sodium (Protonix -) 40 mg PO DAILY [facility] Last Admin: 01/11/20 09:45 Dose: 40 mg Documented by: Polyethylene Glycol (Miralax (For Daily Use) -) 17 gm PO DAILY [facility] Last Admin: 01/11/20 09:46 Dose: Not Given Documented by: Senna (Senna -) 1 tab PO [facility] Last Admin: 01/10/20 22:15 Dose: Not Given Documented by: - Objective Vital Signs: Vital Signs Temperature 98.4 F 01/11/20 09:00 Pulse Rate 89 01/11/20 09:00 Respiratory Rate 18 01/11/20 09:00 Blood Pressure 91/58 L 01/11/20 09:00 O2 Sat by Pulse Oximetry (%) 97 01/11/20 09:00 Constitutional: Yes: No Distress Eyes: Yes: Conjunctiva Clear Cardiovascular: Yes: Regular Rate and Rhythm, S1, S2 Respiratory: Yes: CTA Bilaterally Gastrointestinal: Yes: Normal Bowel Sounds, Soft. No: Tenderness Integumentary: Yes: Other (DECREASED ERYTHEMA R GROIN WOUND + DRAINAGE ON DRESSING) Labs: CBC, BMP 01/11/20 05:52 01/10/20 06:00 INR, PTT INR 1.35 (0.83-1.09) H 01/09/20 09:40 Assessment/Plan STAPH BACTEREMIA SECONDARY TO SKIN SOURCE WOUND INFECTION ? INFECTED GRAFT FEVER/ LEUKOCYTOSIS THROMBOCYTOPENIA PCN ALLERGY AWAIT FINAL C/S CONTINUE VANCO/ZOSYN
[2020-01-11] MEDS: ENOXAPARIN NA (PORCINE) 80 MG/0.8 ML DISP.SYRIN SQ SCH (21:23)
[2020-01-11] MEDS: ATORVASTATIN CA 40 MG TABLET (FP) PO SCH (21:23)
[2020-01-11] MEDS: SENNOSIDES 8.6MG TABLET (FP) PO SCH (21:28)
[2020-01-12] MEDS: ALBUTEROL SO4 2.5/IPRATROPIUM 0.5 INH SOL 3 ML VIAL.NEB. NEB SCH ×4 (00:02→20:20)
[2020-01-12] MEDS ORDERED: PT OWN MED DRAWER 7, Y5N ONE (00:04)
[2020-01-12] MEDS: VANCOMYCIN 1,250 MG in DEXTROSE 5%-WATER - 250 ML IVPB SCH ×3 (00:06→23:24)
[2020-01-12] MEDS: guaiFENesin 200 MG/10 ML 10 ML UNIT-DOSE CUPS PO PRN ×4 (00:33→20:33)
[2020-01-12] MEDS: ACETAMINOPHEN 325 MG TABLET (FP) PO PRN ×3 (07:32→20:34)
[2020-01-12] MEDS: oxyCODONE HCL 5 MG TABLET PO PRN ×3 (07:33→20:34)
[2020-01-12 08:03] LABS: HEMATOCRIT 34.2 % (35.4-49); HEMOGLOBIN 11.5 GM/dL (11.7-16.9); MCH 31.1 pg (25.7-33.7); MCHC 33.7 g/dl (32.0-35.9); MEAN CELL VOLUME 92.2 fl (80-96); MEAN PLT VOLUME 8.5 fl (7.5-11.1); PLATELET COUNT 124 K/MM3 (134-434); RBC 3.71 M/mm3 (4.00-5.60); RDW 16.4 % (11.9-15.9); WHITE BLOOD COUNT 8.9 K/mm3 (4.0-10.0)
[2020-01-12 08:21] LABS: BILIRUBIN,TOTAL 1.2 mg/dL (0.2-1); CALCIUM 7.7 mg/dL (8.5-10.1); CREATININE 0.8 mg/dL (0.55-1.3); POTASSIUM 3.2 mmol/L (3.5-5.1); TOT PROT 5.4 g/dl (6.4-8.2)
--- NOTE | 2020-01-12 08:27 | PN ---
Progress Note (short form) - Note Progress Note: VASCULAR SURGERY 59 y/o M vasculopath with multiple prior vascular interventions/grafts to RLE (h/o aorto-bifem bypass in 2011, R femoral-tibial bypass in October 2017, s/p Right ilio-tibial bypass with non-reversed saphenous vein (04/08/18), s/p Right axillary-fem and fem-fem bypass (07/04), s/p Bypass from axillary graft to tibial bypass graft w/ SVG) on Lovenox with h/o multiple graft occlusions s/p thrombectomies/lysis. Pt reports he was seen at [facility] by Dr Stoner's partner (Dr Back) in the beginning of December after occluding his RLE graft. Pt was treated with lysis/angioplasty and graft was successfully opened. Pt reports he was doing fine until this past Friday when he began feeling weak and had chills. Presented to [facility] and was found to have sepsis. Patient's Tmax of 102.9F on 01/09/20. Last recorded fever of 101.4F on 01/10/20. Tcurrent 98.9F. Blood cultures bacteremia staph aureus Echo without vegetations Wound Cultures staph aureus Last Vital Signs Temp Pulse Resp BP Pulse Ox 98.9 F 92 H 20 104/57 L 96 01/12/20 06:00 01/12/20 06:00 01/12/20 06:00 01/12/20 06:00 01/12/20 06:00 WBC TREND 01/09/20 01/10/20 01/11/20 01/12/20 09:40 06:40 05:52 05:45 WBC 19.3 H 10.5 H 7.5 8.9 Serology Test 01/09/20 09:40 COVID-19 ([facility]) Not detected Microbiology 01/11/20 05:58 Blood - Peripheral Venous Blood Culture - Preliminary NO GROWTH OBTAINED AFTER 24HRS. INCUBATION TO CONT FOR 4 DAYS. 01/09/20 10:10 Thigh - Right thigh wound culture Gram Stain - Final - Staphylococcus Aureus 01/09/20 09:40 Blood - Peripheral Venous Blood Culture - Preliminary Staphylococcus Aureus GEN: alert. nad. ABD: soft. nt Rt groin: open wound at inguinal crease (superior aspect of old incision), mixed seropurulent drainage. Old packing removed and wound explored with sterile Q- tip. No undermining or pockets found. Graft not exposed. Mild per-wound erythema. Not malodorous. TTP. Leg --> toes warm. Cap refill < 3 sec. A/P -Wound repacked while on rounds (betadine dressing) -Dr. Ponce covering until Dr. Stoner returns 01/17/20 -ID following -- iv abx -Trend WBC -Trend Fever curve -If worsens before Dr. Stoner's return, patient will need to be transferred to [facility] -Patient aware and agrees to plan. -Will cont to monitor closely Above plan discussed with Dr. Ponce and agrees. Problem List - Problems (1) Staphylococcus aureus bacteremia with sepsis Code(s): A41.01 - SEPSIS DUE TO METHICILLIN SUSCEPTIBLE STAPHYLOCOCCUS AUREUS (2) Post-operative infection Code(s): T81.40XA - INFECTION FOLLOWING A PROCEDURE, UNSPECIFIED, INIT Qualifiers: Encounter type: initial encounter Postoperative infection type: unspecified type Qualified Code(s): T81.40XA - Infection following a procedure, unspecified, initial encounter (3) HLD (hyperlipidemia) Code(s): E78.5 - HYPERLIPIDEMIA, UNSPECIFIED Qualifiers: Hyperlipidemia type: pure hypercholesterolemia Qualified Code(s): E78.00 - Pure hypercholesterolemia, unspecified; E78.0 - Pure hypercholesterolemia
[2020-01-12] MEDS: SODIUM CHLORIDE 1,000 ML IV SCH (09:22)
[2020-01-12] MEDS: PANTOPRAZOLE 40 MG TABLET PO SCH (09:22)
[2020-01-12] MEDS: GABAPENTIN 300 MG CAPSULE PO SCH ×2 (09:22→21:36)
[2020-01-12] MEDS: CLOPIDOGREL BISULFATE 75 MG TABLET (FP) PO SCH (09:22)
[2020-01-12] MEDS: DOCUSATE SODIUM 100 MG CAPSULE (FP) PO SCH (09:23)
[2020-01-12] MEDS: ENOXAPARIN NA (PORCINE) 80 MG/0.8 ML DISP.SYRIN SQ SCH ×2 (09:23→21:36)
[2020-01-12] MEDS: POLYETHYLENE GLYCOL 3350 119 GM BTL PO SCH (09:24)
--- NOTE | 2020-01-12 09:26 | PN ---
Progress Note, Physician - Current Medication List Current Medications: Active Medications Acetaminophen (Tylenol -) 325 mg PO Q6H PRN PRN Reason: PAIN LEVEL 6-10 Last Admin: 01/12/20 07:32 Dose: 325 mg Documented by: Albuterol/Ipratropium (Duoneb -) 1 amp NEB RQID [facility] Last Admin: 01/12/20 00:02 Dose: 1 amp Documented by: Atorvastatin Calcium (Lipitor -) 40 mg PO HS [facility] Last Admin: 01/11/20 21:23 Dose: 40 mg Documented by: Clopidogrel Bisulfate (Plavix -) 75 mg PO DAILY [facility] Last Admin: 01/12/20 09:22 Dose: 75 mg Documented by: Docusate Sodium (Colace -) 100 mg PO DAILY [facility] Last Admin: 01/12/20 09:23 Dose: 100 mg Documented by: Enoxaparin Sodium (Lovenox -) 80 mg SQ BID [facility] Last Admin: 01/12/20 09:23 Dose: 80 mg Documented by: Gabapentin (Neurontin -) 300 mg PO BID [facility] Last Admin: 01/12/20 09:22 Dose: 300 mg Documented by: Guaifenesin (Robitussin -) 10 ml PO Q6H PRN PRN Reason: COUGH Last Admin: 01/12/20 07:29 Dose: 10 ml Documented by: Sodium Chloride (Normal Saline -) 1,000 mls @ 100 mls/hr IV ASDIR [facility] Last Admin: 01/12/20 09:22 Dose: 100 mls/hr Documented by: Vancomycin HCl 1,250 mg/ (Dextrose) 250 mls @ 166.667 mls/hr IVPB Q12H [facility]; Protocol Last Admin: 01/12/20 00:06 Dose: 166.667 mls/hr Documented by: Oxycodone HCl (Roxicodone -) 5 mg PO Q6H PRN PRN Reason: PAIN LEVEL 6-10 Last Admin: 01/12/20 07:33 Dose: 5 mg Documented by: Pantoprazole Sodium (Protonix -) 40 mg PO DAILY [facility] Last Admin: 01/12/20 09:22 Dose: 40 mg Documented by: Polyethylene Glycol (Miralax (For Daily Use) -) 17 gm PO DAILY [facility] Last Admin: 01/12/20 09:24 Dose: 17 grams Documented by: Senna (Senna -) 1 tab PO HS [facility] Last Admin: 01/11/20 21:28 Dose: Not Given Documented by: - Objective Vital Signs: Vital Signs Temperature 98.8 F 01/12/20 08:45 Pulse Rate 101 H 01/12/20 08:45 Respiratory Rate 20 01/12/20 08:45 Blood Pressure 117/71 01/12/20 08:45 O2 Sat by Pulse Oximetry (%) 96 01/12/20 06:00 Cardiovascular: Yes: S1, S2 Respiratory: Yes: Regular, CTA Bilaterally Gastrointestinal: Yes: Normal Bowel Sounds, Soft Extremities: Yes: Other (right groin with drainage) Labs: CBC, BMP 01/12/20 05:45 01/12/20 05:45 INR, PTT INR 1.35 (0.83-1.09) H 01/09/20 09:40 Problem List - Problems (1) Sepsis Code(s): A41.9 - SEPSIS, UNSPECIFIED ORGANISM Qualifiers: Sepsis type: sepsis due to unspecified organism Sepsis acute organ dysfunction status: with acute organ dysfunction Severe sepsis acute organ dysfunction type: unspecified Severe sepsis shock status: unspecified Qualified Code(s): A41.9 - Sepsis, unspecified organism; R65.20 - Severe sepsis without septic shock (2) Arterial occlusion, lower extremity Code(s): I70.209 - UNSP ATHSCL [place] ARTERIES OF EXTREMITIES, UNSP EXTREMITY (3) ALICIA (acute kidney injury) Code(s): N17.9 - ACUTE KIDNEY FAILURE, UNSPECIFIED (4) Cough Code(s): R05 - COUGH (5) HLD (hyperlipidemia) Code(s): E78.5 - HYPERLIPIDEMIA, UNSPECIFIED Qualifiers: Hyperlipidemia type: pure hypercholesterolemia Qualified Code(s): E78.00 - Pure hypercholesterolemia, unspecified; E78.0 - Pure hypercholesterolemia Assessment/Plan - Problems (1) ALICIA (acute kidney injury) Assessment/Plan: -resolved -Monitor trend -Continue IVF for now Problems reviewed: Yes Code(s): N17.9 - ACUTE KIDNEY FAILURE, UNSPECIFIED (2) Post-operative infection Assessment/Plan: -ID consult on board -IV Vanco -Cultures: Microbiology 01/11/20 05:58 Blood - Peripheral Venous Blood Culture - Preliminary NO GROWTH OBTAINED AFTER 24 HOURS, INCUBATION TO CONTINUE FOR 4 DAYS. 01/11/20 05:52 Blood - Peripheral Venous Blood Culture - Preliminary NO GROWTH OBTAINED AFTER 24 HOURS, INCUBATION TO CONTINUE FOR 4 DAYS. 01/09/20 10:10 Thigh - Right Gram Stain - Final 01/09/20 10:10 Thigh - Right Wound Culture - Preliminary Staphylococcus Aureus Pending Organism 01/09/20 09:40 Blood - Peripheral Venous Blood Culture - Preliminary Staphylococcus Aureus 01/09/20 09:40 Blood - Peripheral Venous Blood Culture - Preliminary Staphylococcus Latex Coag Pos 01/09/20 11:50 Urine - Urine Clean Catch Urine Culture - Final NO GROWTH OBTAINED -Vascular surgery on board -Afebrile -leukocytosis improved Problems reviewed: Yes Code(s): T81.40XA - INFECTION FOLLOWING A PROCEDURE, UNSPECIFIED, INIT Qualifiers: Encounter type: initial encounter Postoperative infection type: unspecified type Qualified Code(s): T81.40XA - Infection following a procedure, unspecified, initial encounter (3) Staphylococcus aureus bacteremia with sepsis Assessment/Plan: as above Problems reviewed: Yes Code(s): A41.01 - SEPSIS DUE TO METHICILLIN SUSCEPTIBLE STAPHYLOCOCCUS AUREUS (4) Arterial occlusion, lower extremity Problems reviewed: Yes Code(s): I70.209 - UNSP ATHSCL [place] ARTERIES OF EXTREMITIES, UNSP EXTREMITY (5) HLD (hyperlipidemia) Assessment/Plan: -HDL at 9 -LDL at 35 -Decrease atorvastatin to 40 mg po HS Problems reviewed: Yes Code(s): E78.5 - HYPERLIPIDEMIA, UNSPECIFIED Qualifiers: Hyperlipidemia type: pure hypercholesterolemia Qualified Code(s): E78.00 - Pure hypercholesterolemia, unspecified; E78.0 - Pure hypercholesterolemia
--- NOTE | 2020-01-12 10:19 | PN ---
Progress Note, Physician History of Present Illness: pulmonary alert,feeling better,less cough,-sob - Current Medication List Current Medications: Active Medications Acetaminophen (Tylenol -) 325 mg PO Q6H PRN PRN Reason: PAIN LEVEL 6-10 Last Admin: 01/12/20 07:32 Dose: 325 mg Documented by: Albuterol/Ipratropium (Duoneb -) 1 amp NEB RQID [facility] Last Admin: 01/12/20 00:02 Dose: 1 amp Documented by: Atorvastatin Calcium (Lipitor -) 40 mg PO HS [facility] Last Admin: 01/11/20 21:23 Dose: 40 mg Documented by: Clopidogrel Bisulfate (Plavix -) 75 mg PO DAILY [facility] Last Admin: 01/12/20 09:22 Dose: 75 mg Documented by: Docusate Sodium (Colace -) 100 mg PO DAILY [facility] Last Admin: 01/12/20 09:23 Dose: 100 mg Documented by: Enoxaparin Sodium (Lovenox -) 80 mg SQ BID [facility] Last Admin: 01/12/20 09:23 Dose: 80 mg Documented by: Gabapentin (Neurontin -) 300 mg PO BID [facility] Last Admin: 01/12/20 09:22 Dose: 300 mg Documented by: Guaifenesin (Robitussin -) 10 ml PO Q6H PRN PRN Reason: COUGH Last Admin: 01/12/20 07:29 Dose: 10 ml Documented by: Sodium Chloride (Normal Saline -) 1,000 mls @ 100 mls/hr IV ASDIR [facility] Last Admin: 01/12/20 09:22 Dose: 100 mls/hr Documented by: Vancomycin HCl 1,250 mg/ (Dextrose) 250 mls @ 166.667 mls/hr IVPB Q12H [facility]; Protocol Last Admin: 01/12/20 00:06 Dose: 166.667 mls/hr Documented by: Oxycodone HCl (Roxicodone -) 5 mg PO Q6H PRN PRN Reason: PAIN LEVEL 6-10 Last Admin: 01/12/20 07:33 Dose: 5 mg Documented by: Pantoprazole Sodium (Protonix -) 40 mg PO DAILY [facility] Last Admin: 01/12/20 09:22 Dose: 40 mg Documented by: Polyethylene Glycol (Miralax (For Daily Use) -) 17 gm PO DAILY [facility] Last Admin: 01/12/20 09:24 Dose: 17 grams Documented by: Sandra (Senna -) 1 tab PO HS [facility] Last Admin: 01/11/20 21:28 Dose: Not Given Documented by: - Objective Vital Signs: Vital Signs Temperature 98.8 F 01/12/20 08:45 Pulse Rate 101 H 01/12/20 08:45 Respiratory Rate 01/12/20 08:45 Blood Pressure 117/71 01/12/20 08:45 O2 Sat by Pulse Oximetry (%) 96 01/12/20 06:00 Constitutional: Yes: Well Nourished, Calm Eyes: Yes: WNL HENT: Yes: WNL Neck: Yes: WNL Cardiovascular: Yes: Regular Rate and Rhythm, S1, S2 Respiratory: Yes: Rales (dot crackles) Gastrointestinal: Yes: Normal Bowel Sounds, Soft Extremities: Yes: WNL Edema: No Labs: CBC, BMP 01/12/20 05:45 01/12/20 05:45 INR, PTT INR 1.35 (0.83-1.09) H 01/09/20 09:40 Problem List - Problems (1) Staphylococcus aureus bacteremia with sepsis Code(s): A41.01 - SEPSIS DUE TO METHICILLIN SUSCEPTIBLE STAPHYLOCOCCUS AUREUS (2) ALICIA (acute kidney injury) Code(s): N17.9 - ACUTE KIDNEY FAILURE, UNSPECIFIED (3) Cough Code(s): R05 - COUGH (4) HLD (hyperlipidemia) Code(s): E78.5 - HYPERLIPIDEMIA, UNSPECIFIED Qualifiers: Hyperlipidemia type: pure hypercholesterolemia Qualified Code(s): E78.00 - Pure hypercholesterolemia, unspecified; E78.0 - Pure hypercholesterolemia Assessment/Plan Assessment/Plan URI COVID19 PCR NEGATIVE Sepsis/Bacteremia Staph aureus Acute Kidney Injury improved Hyponatremia improved PAD HTN Hyperlipidemia - antibiotics - IVF - monitor urine output, creatinine - monitor lytes - anticoagulation - O2 to keep Spo2 >90% DR GONG
[2020-01-12] MEDS ORDERED: INSULIN (NOVOLOG) ASPART 100 UNITS/ML 10ML VIAL ONE (11:19)
[2020-01-12] MEDS ORDERED: SODIUM CHLORIDE 1,000 ML IV SCH (11:35)
[2020-01-12] MEDS ORDERED: POTASSIUM CHLORIDE TABS 20 MEQ TABLET.ER (FP) PO ONE (11:35)
--- NOTE | 2020-01-12 11:37 | PN ---
Progress Note, Physician History of Present Illness: Pt seen and examined at bedside. He is awake and alert. He denies shortness of breath. - Current Medication List Current Medications: Active Medications Acetaminophen (Tylenol -) 325 mg PO Q6H PRN PRN Reason: PAIN LEVEL 6-10 Last Admin: 01/12/20 07:32 Dose: 325 mg Documented by: Albuterol/Ipratropium (Duoneb -) 1 amp NEB RQID [facility] Last Admin: 01/12/20 00:02 Dose: 1 amp Documented by: Atorvastatin Calcium (Lipitor -) 40 mg PO HS [facility] Last Admin: 01/11/20 21:23 Dose: 40 mg Documented by: Clopidogrel Bisulfate (Plavix -) 75 mg PO DAILY [facility] Last Admin: 01/12/20 09:22 Dose: 75 mg Documented by: Docusate Sodium (Colace -) 100 mg PO DAILY [facility] Last Admin: 01/12/20 09:23 Dose: 100 mg Documented by: Enoxaparin Sodium (Lovenox -) 80 mg SQ BID [facility] Last Admin: 01/12/20 09:23 Dose: 80 mg Documented by: Gabapentin (Neurontin -) 300 mg PO BID [facility] Last Admin: 01/12/20 09:22 Dose: 300 mg Documented by: Guaifenesin (Robitussin -) 10 ml PO Q6H PRN PRN Reason: COUGH Last Admin: 01/12/20 07:29 Dose: 10 ml Documented by: Sodium Chloride (Normal Saline -) 1,000 mls @ 100 mls/hr IV ASDIR [facility] Last Admin: 01/12/20 09:22 Dose: 100 mls/hr Documented by: Vancomycin HCl 1,250 mg/ (Dextrose) 250 mls @ 166.667 mls/hr IVPB Q12H [facility]; Protocol Last Admin: 01/12/20 11:20 Dose: 166.667 mls/hr Documented by: Oxycodone HCl (Roxicodone -) 5 mg PO Q6H PRN PRN Reason: PAIN LEVEL 6-10 Last Admin: 01/12/20 07:33 Dose: 5 mg Documented by: Pantoprazole Sodium (Protonix -) 40 mg PO DAILY [facility] Last Admin: 01/12/20 09:22 Dose: 40 mg Documented by: Polyethylene Glycol (Miralax (For Daily Use) -) 17 gm PO DAILY [facility] Last Admin: 01/12/20 09:24 Dose: 17 grams Documented by: Potassium Chloride (K-Dur -) 40 meq PO ONCE ONE Stop: 01/12/20 11:36 Senna (Senna -) 1 tab PO HS [facility] Last Admin: 01/11/20 21:28 Dose: Not Given Documented by: - Objective Vital Signs: Vital Signs Temperature 98.8 F 01/12/20 08:45 Pulse Rate 101 H 01/12/20 08:45 Respiratory Rate 20 01/12/20 09:00 Blood Pressure 117/71 01/12/20 08:45 O2 Sat by Pulse Oximetry (%) 96 01/12/20 09:00 Constitutional: Yes: Calm Eyes: Yes: Conjunctiva Clear HENT: Yes: Atraumatic Neck: Yes: Supple Cardiovascular: Yes: S1, S2 Respiratory: Yes: On Nasal O2, Wheezes Gastrointestinal: Yes: Normal Bowel Sounds, Soft Genitourinary: Yes: WNL Musculoskeletal: Yes: WNL Edema: No Neurological: Yes: Oriented Psychiatric: Yes: Oriented Labs: CBC, BMP 01/12/20 05:45 01/12/20 05:45 INR, PTT INR 1.35 (0.83-1.09) H 01/09/20 09:40 Problem List - Problems (1) ALICIA (acute kidney injury) Code(s): N17.9 - ACUTE KIDNEY FAILURE, UNSPECIFIED (2) Cough Code(s): R05 - COUGH Assessment/Plan Current Medications Generic Name Dose Route Start Last Admin Trade Name Freq PRN Reason Stop Dose Admin Acetaminophen 325 mg 01/09/20 15:45 01/12/20 07:32 Tylenol - PO 325 mg Q6H PRN Administration PAIN LEVEL 6-10 Albuterol/Ipratropium 1 amp 01/10/20 12:00 01/12/20 00:02 Duoneb - NEB 1 amp RQID [facility] Administration Atorvastatin Calcium 40 mg 01/11/20 22:00 01/11/20 21:23 Lipitor - PO 40 mg HS [facility] Administration Clopidogrel Bisulfate 75 mg 01/10/20 10:00 01/12/20 09:22 Plavix - PO 75 mg DAILY [facility] Administration Docusate Sodium 100 mg 01/09/20 15:45 01/12/20 09:23 Colace - PO 100 mg DAILY [facility] Administration Enoxaparin Sodium 80 mg 01/11/20 22:00 01/12/20 09:23 Lovenox - SQ 80 mg BID [facility] Administration Gabapentin 300 mg 01/09/20 22:00 01/12/20 09:22 Neurontin - PO 300 mg BID [facility] Administration Guaifenesin 10 ml 01/10/20 11:30 01/12/20 07:29 Robitussin - PO 10 ml Q6H PRN Administration COUGH Vancomycin HCl 1,250 mg/ 250 mls @ 166.667 mls/hr 01/10/20 12:00 01/12/20 1 1:20 Dextrose IVPB 166.667 mls/hr Q12H [facility] Administration Protocol Sodium Chloride 1,000 mls @ 40 mls/hr 01/12/20 11:35 Normal Saline - IV ASDIR [facility] Oxycodone HCl 5 mg 01/09/20 15:45 01/12/20 07:33 Roxicodone - PO 5 mg Q6H PRN Administration PAIN LEVEL 6-10 Pantoprazole Sodium 40 mg 01/10/20 10:00 01/12/20 09:22 Protonix - PO 40 mg DAILY [facility] Administration Polyethylene Glycol 17 gm 01/09/20 15:45 01/12/20 09:24 Miralax (For Daily Use) - PO 17 grams DAILY [facility] Administration Potassium Chloride 40 meq 01/12/20 11:35 K-Dur - PO 01/12/20 11:36 ONCE ONE Senna 1 tab 01/09/20 22:00 01/11/20 21:28 Senna - PO Not Given HS [facility] Impression 1. alicia resolved 2. bacteremia 3. htn 4. hld 5. pvd Plan - renal function stable - replace potassium - decrease fluids - repeat labs in am - monitor bp
--- NOTE | 2020-01-12 12:22 | PN ---
Progress Note (short form) - Note Progress Note: cc b/l leg pain s: no chest pain, palps, dizziness, dyspnea Current Medications Generic Name Dose Route Start Last Admin Trade Name Freq PRN Reason Stop Dose Admin Acetaminophen 325 mg 01/09/20 15:45 01/12/20 07:32 Tylenol - PO 325 mg Q6H PRN Administration PAIN LEVEL 6-10 Albuterol/Ipratropium 1 amp 01/10/20 12:00 01/12/20 00:02 Duoneb - NEB 1 amp RQID [facility] Administration Atorvastatin Calcium 40 mg 01/11/20 22:00 01/11/20 21:23 Lipitor - PO 40 mg HS [facility] Administration Clopidogrel Bisulfate 75 mg 01/10/20 10:00 01/12/20 09:22 Plavix - PO 75 mg DAILY [facility] Administration Docusate Sodium 100 mg 01/09/20 15:45 01/12/20 09:23 Colace - PO 100 mg DAILY [facility] Administration Enoxaparin Sodium 80 mg 01/11/20 22:00 01/12/20 09:23 Lovenox - SQ 80 mg BID [facility] Administration Gabapentin 300 mg 01/09/20 22:00 01/12/20 09:22 Neurontin - PO 300 mg BID [facility] Administration Guaifenesin 10 ml 01/10/20 11:30 01/12/20 07:29 Robitussin - PO 10 ml Q6H PRN Administration COUGH Vancomycin HCl 1,250 mg/ 250 mls @ 166.667 mls/hr 01/10/20 12:00 01/12/20 11:20 Dextrose IVPB 166.667 mls/hr Q12H [facility] Administration Protocol Sodium Chloride 1,000 mls @ 40 mls/hr 01/12/20 11:35 01/12/20 12:20 Normal Saline - IV 40 mls/hr ASDIR [facility] Administration Oxycodone HCl 5 mg 01/09/20 15:45 01/12/20 07:33 Roxicodone - PO 5 mg Q6H PRN Administration PAIN LEVEL 6-10 Pantoprazole Sodium 40 mg 01/10/20 10:00 01/12/20 09:22 Protonix - PO 40 mg DAILY [facility] Administration Polyethylene Glycol 17 gm 01/09/20 15:45 01/12/20 09:24 Miralax (For Daily Use) - PO 17 grams DAILY [facility] Administration Senna 1 tab 01/09/20 22:00 01/11/20 21:28 Senna - PO Not Given HS [facility] Vital Signs Period Temp Pulse Resp BP Sys/White Pulse Ox Last 24 Hr 98.1 F-98.9 F 84-101 20-20 94-117/57-71 96-99 nad no jvd rrr s1s2 no mrg cta bl nl eff aaox3 no le edema no carotid bruits, weak distal pulses no jaundice diaphoresis abd nt nd pos bs CT chest: mild chronic lung dz with no acute pathology ecg: sr, nl intervals, no ischemic changes mibi 11/2016: no ischemia, lvef 80 echo 12/2019 nl LV function, impaired relaxation, nl RV, mild MR, tr to mild TR, mildly sclerotic AV no dysfunction a/p: 60 m hx htn, pad here with b/l leg pain, fever fever, wound infection, staph bacteremia, sepsis - no vegetation on echo - repeat bcx no growth - on IV abx per primary, ID pad, history of graft thrombosis - cont aspirin, plavix, and therapeutic lovenox per vascular htn: -not on meds at home -soft BPs here, monitor ALICIA - likely prerenal, improved with IVF - renal following
--- NOTE | 2020-01-12 13:59 | PN ---
Progress Note, Physician History of Present Illness: AWAKE, ALERT IM BED R GROIN PAIN RELIEVED WITH MEDS TEMPS IMPROVED AFEBRILE WBC IMPROVED AZOTEMIA IMPROVED BC PRELIM MSSA WOUND C/S PENDING - Current Medication List Current Medications: Active Medications Acetaminophen (Tylenol -) 325 mg PO Q6H PRN PRN Reason: PAIN LEVEL 6-10 Last Admin: 01/12/20 07:32 Dose: 325 mg Documented by: Albuterol/Ipratropium (Duoneb -) 1 amp NEB RQID [facility] Last Admin: 01/12/20 00:02 Dose: 1 amp Documented by: Atorvastatin Calcium (Lipitor -) 40 mg PO HS [facility] Last Admin: 01/11/20 21:23 Dose: 40 mg Documented by: Clopidogrel Bisulfate (Plavix -) 75 mg PO DAILY [facility] Last Admin: 01/12/20 09:22 Dose: 75 mg Documented by: Docusate Sodium (Colace -) 100 mg PO DAILY [facility] Last Admin: 01/12/20 09:23 Dose: 100 mg Documented by: Enoxaparin Sodium (Lovenox -) 80 mg SQ BID [facility] Last Admin: 01/12/20 09:23 Dose: 80 mg Documented by: Gabapentin (Neurontin -) 300 mg PO BID [facility] Last Admin: 01/12/20 09:22 Dose: 300 mg Documented by: Guaifenesin (Robitussin -) 10 ml PO Q6H PRN PRN Reason: COUGH Last Admin: 01/12/20 07:29 Dose: 10 ml Documented by: Vancomycin HCl 1,250 mg/ (Dextrose) 250 mls @ 166.667 mls/hr IVPB Q12H [facility]; Protocol Last Admin: 01/12/20 11:20 Dose: 166.667 mls/hr Documented by: Sodium Chloride (Normal Saline -) 1,000 mls @ 40 mls/hr IV ASDIR [facility] Last Admin: 01/12/20 12:20 Dose: 40 mls/hr Documented by: Oxycodone HCl (Roxicodone -) 5 mg PO Q6H PRN PRN Reason: PAIN LEVEL 6-10 Last Admin: 01/12/20 07:33 Dose: 5 mg Documented by: Pantoprazole Sodium (Protonix -) 40 mg PO DAILY [facility] Last Admin: 01/12/20 09:22 Dose: 40 mg Documented by: Polyethylene Glycol (Miralax (For Daily Use) -) 17 gm PO DAILY [facility] Last Admin: 01/12/20 09:24 Dose: 17 grams Documented by: Senna (Senna -) 1 tab PO HS [facility] Last Admin: 01/11/20 21:28 Dose: Not Given Documented by: - Objective Vital Signs: Vital Signs Temperature 98.8 F 01/12/20 08:45 Pulse Rate 101 H 01/12/20 08:45 Respiratory Rate 20 01/12/20 09:00 Blood Pressure 117/71 01/12/20 08:45 O2 Sat by Pulse Oximetry (%) 96 01/12/20 09:00 Constitutional: Yes: No Distress Eyes: Yes: Conjunctiva Clear Cardiovascular: Yes: Regular Rate and Rhythm, S1, S2 Respiratory: Yes: Rhonchi Gastrointestinal: Yes: Normal Bowel Sounds, Soft. No: Tenderness Edema: No Labs: CBC, BMP 01/12/20 05:45 01/12/20 05:45 INR, PTT INR 1.35 (0.83-1.09) H 01/09/20 09:40 Assessment/Plan STAPH BACTEREMIA SECONDARY TO SKIN SOURCE WOUND INFECTION ? INFECTED GRAFT FEVER/ LEUKOCYTOSIS IMPROVED THROMBOCYTOPENIA PCN ALLERGY AWAIT FINAL C/S CONTINUE VANCO D/C ZOSYN
[2020-01-12] MEDS: ATORVASTATIN CA 40 MG TABLET (FP) PO SCH (21:36)
[2020-01-12] MEDS: SENNOSIDES 8.6MG TABLET (FP) PO SCH (21:39)
[2020-01-13] MEDS: guaiFENesin 200 MG/10 ML 10 ML UNIT-DOSE CUPS PO PRN ×3 (05:44→21:32)
[2020-01-13] MEDS: oxyCODONE HCL 5 MG TABLET PO PRN ×3 (05:44→19:52)
[2020-01-13] MEDS: ACETAMINOPHEN 325 MG TABLET (FP) PO PRN ×3 (05:45→19:53)
[2020-01-13 08:21] LABS: HEMATOCRIT 34.1 % (35.4-49); HEMOGLOBIN 11.4 GM/dL (11.7-16.9); MCH 30.3 pg (25.7-33.7); MCHC 33.5 g/dl (32.0-35.9); MEAN CELL VOLUME 90.5 fl (80-96); MEAN PLT VOLUME 8.7 fl (7.5-11.1); PLATELET COUNT 136 K/MM3 (134-434); RBC 3.76 M/mm3 (4.00-5.60); RDW 16.4 % (11.9-15.9); WHITE BLOOD COUNT 9.9 K/mm3 (4.0-10.0)
--- NOTE | 2020-01-13 08:33 | PN ---
Progress Note, Physician - Current Medication List Current Medications: Active Medications Acetaminophen (Tylenol -) 325 mg PO Q6H PRN PRN Reason: PAIN LEVEL 6-10 Last Admin: 01/13/20 05:45 Dose: 325 mg Documented by: Albuterol/Ipratropium (Duoneb -) 1 amp NEB RQID [facility] Last Admin: 01/12/20 20:20 Dose: 1 amp Documented by: Atorvastatin Calcium (Lipitor -) 40 mg PO HS [facility] Last Admin: 01/12/20 21:36 Dose: 40 mg Documented by: Clopidogrel Bisulfate (Plavix -) 75 mg PO DAILY [facility] Last Admin: 01/12/20 09:22 Dose: 75 mg Documented by: Docusate Sodium (Colace -) 100 mg PO DAILY [facility] Last Admin: 01/12/20 09:23 Dose: 100 mg Documented by: Enoxaparin Sodium (Lovenox -) 80 mg SQ BID [facility] Last Admin: 01/12/20 21:36 Dose: 80 mg Documented by: Gabapentin (Neurontin -) 300 mg PO BID [facility] Last Admin: 01/12/20 21:36 Dose: 300 mg Documented by: Guaifenesin (Robitussin -) 10 ml PO Q6H PRN PRN Reason: COUGH Last Admin: 01/13/20 05:44 Dose: 10 ml Documented by: Vancomycin HCl 1,250 mg/ (Dextrose) 250 mls @ 166.667 mls/hr IVPB Q12H [facility]; Protocol Last Admin: 01/12/20 23:24 Dose: 166.667 mls/hr Documented by: Sodium Chloride (Normal Saline -) 1,000 mls @ 40 mls/hr IV ASDIR [facility] Last Admin: 01/12/20 12:20 Dose: 40 mls/hr Documented by: Oxycodone HCl (Roxicodone -) 5 mg PO Q6H PRN PRN Reason: PAIN LEVEL 6-10 Last Admin: 01/13/20 05:44 Dose: 5 mg Documented by: Pantoprazole Sodium (Protonix -) 40 mg PO DAILY [facility] Last Admin: 01/12/20 09:22 Dose: 40 mg Documented by: Polyethylene Glycol (Miralax (For Daily Use) -) 17 gm PO DAILY [facility] Last Admin: 01/12/20 09:24 Dose: 17 grams Documented by: Senna (Senna -) 1 tab PO HS [facility] Last Admin: 01/12/20 21:39 Dose: 1 tab Documented by: - Objective Vital Signs: Vital Signs Temperature 99.2 F 01/13/20 06:00 Pulse Rate 96 H 01/13/20 06:00 Respiratory Rate 01/13/20 06:00 Blood Pressure 119/69 01/13/20 06:00 O2 Sat by Pulse Oximetry (%) 94 L 01/13/20 06:00 Cardiovascular: Yes: Regular Rate and Rhythm Respiratory: Yes: Regular, CTA Bilaterally Gastrointestinal: Yes: Normal Bowel Sounds, Soft Labs: CBC, BMP 01/12/20 05:45 INR, PTT INR 1.35 (0.83-1.09) H 01/09/20 09:40 Problem List - Problems (1) Sepsis Code(s): A41.9 - SEPSIS, UNSPECIFIED ORGANISM Qualifiers: Sepsis type: sepsis due to unspecified organism Sepsis acute organ dysfunction status: with acute organ dysfunction Severe sepsis acute organ dysfunction type: unspecified Severe sepsis shock status: unspecified Qualified Code(s): A41.9 - Sepsis, unspecified organism; R65.20 - Severe sepsis without septic shock (2) Arterial occlusion, lower extremity Code(s): I70.209 - UNSP ATHSCL ELEM ARTERIES OF EXTREMITIES, UNSP EXTREMITY (3) ALICIA (acute kidney injury) Code(s): N17.9 - ACUTE KIDNEY FAILURE, UNSPECIFIED (4) Cough Code(s): R05 - COUGH (5) HLD (hyperlipidemia) Code(s): E78.5 - HYPERLIPIDEMIA, UNSPECIFIED Qualifiers: Hyperlipidemia type: pure hypercholesterolemia Qualified Code(s): E78.00 - Pure hypercholesterolemia, unspecified; E78.0 - Pure hypercholesterolemia Assessment/Plan - Problems (1) ALICIA (acute kidney injury) Assessment/Plan: -resolved -Monitor trend -Continue IVF for now Problems reviewed: Yes Code(s): N17.9 - ACUTE KIDNEY FAILURE, UNSPECIFIED (2) Post-operative infection Assessment/Plan: -ID consult on board -IV Vanco -Cultures: Microbiology 01/11/20 05:58 Blood - Peripheral Venous Blood Culture - Preliminary NO GROWTH OBTAINED AFTER 48 HOURS, INCUBATION TO CONTINUE FOR 3 DAYS. 01/11/20 05:52 Blood - Peripheral Venous Blood Culture - Preliminary NO GROWTH OBTAINED AFTER 48 HOURS, INCUBATION TO CONTINUE FOR 3 DAYS. 01/09/20 09:40 Blood - Peripheral Venous Blood Culture - Final Staphylococcus Latex Coag Pos 01/09/20 09:40 Blood - Peripheral Venous Blood Culture - Final Staphylococcus Aureus 01/09/20 10:10 Thigh - Right Gram Stain - Final 01/09/20 10:10 Thigh - Right Wound Culture - Preliminary Staphylococcus Aureus Pending Organism 01/09/20 11:50 Urine - Urine Clean Catch Urine Culture - Final NO GROWTH OBTAINED -Vascular surgery on board -Afebrile -leukocytosis improved Problems reviewed: Yes Code(s): T81.40XA - INFECTION FOLLOWING A PROCEDURE, UNSPECIFIED, INIT Qualifiers: Encounter type: initial encounter Postoperative infection type: unspecified type Qualified Code(s): T81.40XA - Infection following a procedure, unspecified, initial encounter (3) Staphylococcus aureus bacteremia with sepsis Assessment/Plan: as above Problems reviewed: Yes Code(s): A41.01 - SEPSIS DUE TO METHICILLIN SUSCEPTIBLE STAPHYLOCOCCUS AUREUS (4) Arterial occlusion, lower extremity Problems reviewed: Yes Code(s): I70.209 - UNSP ATHSCL ELEM ARTERIES OF EXTREMITIES, UNSP EXTREMITY (5) HLD (hyperlipidemia) Assessment/Plan: -HDL at 9 -LDL at 35 -Decrease atorvastatin to 40 mg po HS Problems reviewed: Yes Code(s): E78.5 - HYPERLIPIDEMIA, UNSPECIFIED Qualifiers: Hyperlipidemia type: pure hypercholesterolemia Qualified Code(s): E78.00 - Pure hypercholesterolemia, unspecified; E78.0 - Pure hypercholesterolemia
[2020-01-13] MEDS: ALBUTEROL SO4 2.5/IPRATROPIUM 0.5 INH SOL 3 ML VIAL.NEB. NEB SCH ×4 (08:40→20:11)
[2020-01-13] MEDS: GABAPENTIN 300 MG CAPSULE PO SCH ×2 (09:52→21:32)
[2020-01-13] MEDS: CLOPIDOGREL BISULFATE 75 MG TABLET (FP) PO SCH (09:52)
[2020-01-13] MEDS: PANTOPRAZOLE 40 MG TABLET PO SCH (09:52)
[2020-01-13] MEDS: POLYETHYLENE GLYCOL 3350 119 GM BTL PO SCH (09:52)
[2020-01-13] MEDS: ENOXAPARIN NA (PORCINE) 80 MG/0.8 ML DISP.SYRIN SQ SCH ×2 (09:52→21:32)
[2020-01-13] MEDS: DOCUSATE SODIUM 100 MG CAPSULE (FP) PO SCH (09:52)
--- NOTE | 2020-01-13 10:57 | PN ---
Progress Note (short form) - Note Progress Note: cc b/l leg pain s: no chest pain, palps, dizziness, dyspnea Current Medications Generic Name Dose Route Start Last Admin Trade Name Freq PRN Reason Stop Dose Admin Acetaminophen 325 mg 01/09/20 15:45 01/13/20 05:45 Tylenol - PO 325 mg Q6H PRN Administration PAIN LEVEL 6-10 Albuterol/Ipratropium 1 amp 01/10/20 12:00 01/13/20 08:40 Duoneb - NEB 1 amp RQID [facility] Administration Atorvastatin Calcium 40 mg 01/11/20 22:00 01/12/20 21:36 Lipitor - PO 40 mg HS [facility] Administration Clopidogrel Bisulfate 75 mg 01/10/20 10:00 01/13/20 09:52 Plavix - PO 75 mg DAILY [facility] Administration Docusate Sodium 100 mg 01/09/20 15:45 01/13/20 09:52 Colace - PO 100 mg DAILY [facility] Administration Enoxaparin Sodium 80 mg 01/11/20 22:00 01/13/20 09:52 Lovenox - SQ 80 mg BID [facility] Administration Gabapentin 300 mg 01/09/20 22:00 01/13/20 09:52 Neurontin - PO 300 mg BID [facility] Administration Guaifenesin 10 ml 01/10/20 11:30 01/13/20 05:44 Robitussin - PO 10 ml Q6H PRN Administration COUGH Vancomycin HCl 1,250 mg/ 250 mls @ 166.667 mls/hr 01/10/20 12:00 01/12/20 23:24 Dextrose IVPB 166.667 mls/hr Q12H [facility] Administration Protocol Sodium Chloride 1,000 mls @ 40 mls/hr 01/12/20 11:35 01/12/20 12:20 Normal Saline - IV 40 mls/hr ASDIR [facility] Administration Oxycodone HCl 5 mg 01/09/20 15:45 01/13/20 05:44 Roxicodone - PO 5 mg Q6H PRN Administration PAIN LEVEL 6-10 Pantoprazole Sodium 40 mg 01/10/20 10:00 01/13/20 09:52 Protonix - PO 40 mg DAILY [facility] Administration Polyethylene Glycol 17 gm 01/09/20 15:45 01/13/20 09:52 Miralax (For Daily Use) - PO 17 grams DAILY [facility] Administration Senna 1 tab 01/09/20 22:00 01/12/20 21:39 Senna - PO 1 tab HS [facility] Administration Vital Signs Period Temp Pulse Resp BP Sys/White Pulse Ox Last 24 Hr 98.2 F-99.8 F 90-110 20-20 100-119/61-69 94-98 nad no jvd rrr s1s2 no mrg cta bl nl eff aaox3 no le edema no jaundice diaphoresis abd nt nd pos bs CBC, BMP 01/13/20 06:14 01/12/20 05:45 CT chest: mild chronic lung dz with no acute pathology ecg: sr, nl intervals, no ischemic changes mibi 11/2016: no ischemia, lvef 80 echo 12/2019 nl LV function, impaired relaxation, nl RV, mild MR, tr to mild TR, mildly sclerotic AV no dysfunction tele: sr a/p: 60 m hx htn, pad here with b/l leg pain, fever fever, wound infection, staph bacteremia, sepsis - no vegetation on echo - repeat bcx no growth - on IV abx per primary, ID pad, history of graft thrombosis - cont aspirin, plavix, and therapeutic lovenox per vascular htn: -not on meds at home -soft BPs here, monitor ALICIA - likely prerenal, improved with IVF - renal following
--- NOTE | 2020-01-13 11:45 | PN ---
Progress Note (short form) - Note Progress Note: PULMONARY Breathing better. Less cough. Still with sweats. Vital Signs Period Temp Pulse Resp BP Sys/White Pulse Ox Last 24 Hr 98.2 F-99.8 F 90-110 20-20 100-119/61-69 94-98 Gen: less tachypneic Heart: RRR Lung: decreased breath sounds at the bases Abd: soft, nontender Ext: no edema CBC, BMP 01/13/20 06:14 01/12/20 05:45 Active Medications Acetaminophen (Tylenol -) 325 mg PO Q6H PRN PRN Reason: PAIN LEVEL 6-10 Last Admin: 01/13/20 05:45 Dose: 325 mg Documented by: Albuterol/Ipratropium (Duoneb -) 1 amp NEB RQID [facility] Last Admin: 01/13/20 08:40 Dose: 1 amp Documented by: Atorvastatin Calcium (Lipitor -) 40 mg PO HS [facility] Last Admin: 01/12/20 21:36 Dose: 40 mg Documented by: Clopidogrel Bisulfate (Plavix -) 75 mg PO DAILY [facility] Last Admin: 01/13/20 09:52 Dose: 75 mg Documented by: Docusate Sodium (Colace -) 100 mg PO DAILY [facility] Last Admin: 01/13/20 09:52 Dose: 100 mg Documented by: Enoxaparin Sodium (Lovenox -) 80 mg SQ BID [facility] Last Admin: 01/13/20 09:52 Dose: 80 mg Documented by: Gabapentin (Neurontin -) 300 mg PO BID [facility] Last Admin: 01/13/20 09:52 Dose: 300 mg Documented by: Guaifenesin (Robitussin -) 10 ml PO Q6H PRN PRN Reason: COUGH Last Admin: 01/13/20 05:44 Dose: 10 ml Documented by: Vancomycin HCl 1,250 mg/ (Dextrose) 250 mls @ 166.667 mls/hr IVPB Q12H [facility]; Protocol Last Admin: 01/12/20 23:24 Dose: 166.667 mls/hr Documented by: Sodium Chloride (Normal Saline -) 1,000 mls @ 40 mls/hr IV ASDIR [facility] Last Admin: 01/12/20 12:20 Dose: 40 mls/hr Documented by: Oxycodone HCl (Roxicodone -) 5 mg PO Q6H PRN PRN Reason: PAIN LEVEL 6-10 Last Admin: 01/13/20 05:44 Dose: 5 mg Documented by: Pantoprazole Sodium (Protonix -) 40 mg PO DAILY [facility] Last Admin: 01/13/20 09:52 Dose: 40 mg Documented by: Polyethylene Glycol (Miralax (For Daily Use) -) 17 gm PO DAILY [facility] Last Admin: 01/13/20 09:52 Dose: 17 grams Documented by: Senna (Senna -) 1 tab PO HS [facility] Last Admin: 01/12/20 21:39 Dose: 1 tab Documented by: A/P Staph Bacteremia Wound Infection Sepsis Acute Kidney Injury Hyponatremia PAD HTN Hyperlipidemia - continue antibiotics - IVF - monitor urine output, creatinine - monitor lytes - continue anticoagulation - O2 to keep Spo2 >90%
[2020-01-13] MEDS: VANCOMYCIN 1,250 MG in DEXTROSE 5%-WATER - 250 ML IVPB SCH (12:29)
--- NOTE | 2020-01-13 13:22 | PN ---
Progress Note, Physician History of Present Illness: Pt seen and examined at bedside. He feels he has lower ext edema. He denies shortness of breath. - Current Medication List Current Medications: Active Medications Acetaminophen (Tylenol -) 325 mg PO Q6H PRN PRN Reason: PAIN LEVEL 6-10 Last Admin: 01/13/20 12:34 Dose: 325 mg Documented by: Albuterol/Ipratropium (Duoneb -) 1 amp NEB RQID [facility] Last Admin: 01/13/20 12:18 Dose: 1 amp Documented by: Atorvastatin Calcium (Lipitor -) 40 mg PO HS [facility] Last Admin: 01/12/20 21:36 Dose: 40 mg Documented by: Clopidogrel Bisulfate (Plavix -) 75 mg PO DAILY [facility] Last Admin: 01/13/20 09:52 Dose: 75 mg Documented by: Docusate Sodium (Colace -) 100 mg PO DAILY [facility] Last Admin: 01/13/20 09:52 Dose: 100 mg Documented by: Enoxaparin Sodium (Lovenox -) 80 mg SQ BID [facility] Last Admin: 01/13/20 09:52 Dose: 80 mg Documented by: Gabapentin (Neurontin -) 300 mg PO BID [facility] Last Admin: 01/13/20 09:52 Dose: 300 mg Documented by: Guaifenesin (Robitussin -) 10 ml PO Q6H PRN PRN Reason: COUGH Last Admin: 01/13/20 12:35 Dose: 10 ml Documented by: Vancomycin HCl 1,250 mg/ (Dextrose) 250 mls @ 166.667 mls/hr IVPB Q12H [facility]; Protocol Last Admin: 01/13/20 12:29 Dose: 166.667 mls/hr Documented by: Sodium Chloride (Normal Saline -) 1,000 mls @ 40 mls/hr IV ASDIR [facility] Last Admin: 01/12/20 12:20 Dose: 40 mls/hr Documented by: Oxycodone HCl (Roxicodone -) 5 mg PO Q6H PRN PRN Reason: PAIN LEVEL 6-10 Last Admin: 01/13/20 12:30 Dose: 5 mg Documented by: Pantoprazole Sodium (Protonix -) 40 mg PO DAILY [facility] Last Admin: 01/13/20 09:52 Dose: 40 mg Documented by: Polyethylene Glycol (Miralax (For Daily Use) -) 17 gm PO DAILY [facility] Last Admin: 01/13/20 09:52 Dose: 17 grams Documented by: Sandra (Senna -) 1 tab PO HS [facility] Last Admin: 01/12/20 21:39 Dose: 1 tab Documented by: - Objective Vital Signs: Vital Signs Temperature 98.7 F 01/13/20 10:00 Pulse Rate 90 01/13/20 10:00 Respiratory Rate 20 01/13/20 10:00 Blood Pressure 100/67 01/13/20 10:00 O2 Sat by Pulse Oximetry (%) 98 01/13/20 10:00 Constitutional: Yes: Calm Eyes: Yes: Conjunctiva Clear HENT: Yes: Atraumatic Neck: Yes: Supple Cardiovascular: Yes: S1, S2 Respiratory: Yes: CTA Bilaterally Gastrointestinal: Yes: Normal Bowel Sounds, Soft Genitourinary: Yes: WNL Musculoskeletal: Yes: WNL Extremities: Yes: WNL Edema: Yes Edema: LLE: 1+, RLE: 1+ Neurological: Yes: Oriented Psychiatric: Yes: Oriented Labs: CBC, BMP 01/13/20 06:14 01/12/20 05:45 INR, PTT INR 1.35 (0.83-1.09) H 01/09/20 09:40 Problem List - Problems (1) ALICIA (acute kidney injury) Code(s): N17.9 - ACUTE KIDNEY FAILURE, UNSPECIFIED (2) Cough Code(s): R05 - COUGH Assessment/Plan Current Medications Generic Name Dose Route Start Last Admin Trade Name Freq PRN Reason Stop Dose Admin Acetaminophen 325 mg 01/09/20 15:45 01/13/20 12:34 Tylenol - PO 325 mg Q6H PRN Administration PAIN LEVEL 6-10 Albuterol/Ipratropium 1 amp 01/10/20 12:00 01/13/20 12:18 Duoneb - NEB 1 amp RQID [facility] Administration Atorvastatin Calcium 40 mg 01/11/20 22:00 01/12/20 21:36 Lipitor - PO 40 mg HS [facility] Administration Clopidogrel Bisulfate 75 mg 01/10/20 10:00 01/13/20 09:52 Plavix - PO 75 mg DAILY [facility] Administration Docusate Sodium 100 mg 01/09/20 15:45 01/13/20 09:52 Colace - PO 100 mg DAILY [facility] Administration Enoxaparin Sodium 80 mg 01/11/20 22:00 01/13/20 09:52 Lovenox - SQ 80 mg BID [facility] Administration Gabapentin 300 mg 01/09/20 22:00 01/13/20 09:52 Neurontin - PO 300 mg BID [facility] Administration Guaifenesin 10 ml 01/10/20 11:30 01/13/20 12:35 Robitussin - PO 10 ml Q6H PRN Administration COUGH Sodium Chloride 1,000 mls @ 40 mls/hr 01/12/20 11:35 01/12/20 12:20 Normal Saline - IV 40 mls/hr ASDIR [facility] Administration Cefazolin Sodium 2 gm/ 50 mls @ 200 mls/hr 01/13/20 13:30 Dextrose IVPB Q8H-IV [facility] Oxycodone HCl 5 mg 01/09/20 15:45 01/13/20 12:30 Roxicodone - PO 5 mg Q6H PRN Administration PAIN LEVEL 6-10 Pantoprazole Sodium 40 mg 01/10/20 10:00 01/13/20 09:52 Protonix - PO 40 mg DAILY [facility] Administration Polyethylene Glycol 17 gm 01/09/20 15:45 01/13/20 09:52 Miralax (For Daily Use) - PO 17 grams DAILY [facility] Administration Senna 1 tab 01/09/20 22:00 01/12/20 21:39 Senna - PO 1 tab HS [facility] Administration Impression 1. alicia resolved 2. bacteremia 3. htn 4. hld 5. pvd Plan - d/c fluids - repeat labs - will give lasix if bp does not improve - repeat labs in am - monitor bp
--- NOTE | 2020-01-13 13:24 | PN ---
Progress Note, Physician History of Present Illness: AWAKE, ALERT IM BED R GROIN PAIN RELIEVED WITH MEDS LOW GRADE TEMPS WBC IMPROVED AZOTEMIA IMPROVED BC MSSA - Current Medication List Current Medications: Active Medications Acetaminophen (Tylenol -) 325 mg PO Q6H PRN PRN Reason: PAIN LEVEL 6-10 Last Admin: 01/13/20 12:34 Dose: 325 mg Documented by: Albuterol/Ipratropium (Duoneb -) 1 amp NEB RQID [facility] Last Admin: 01/13/20 12:18 Dose: 1 amp Documented by: Atorvastatin Calcium (Lipitor -) 40 mg PO HS [facility] Last Admin: 01/12/20 21:36 Dose: 40 mg Documented by: Clopidogrel Bisulfate (Plavix -) 75 mg PO DAILY [facility] Last Admin: 01/13/20 09:52 Dose: 75 mg Documented by: Docusate Sodium (Colace -) 100 mg PO DAILY [facility] Last Admin: 01/13/20 09:52 Dose: 100 mg Documented by: Enoxaparin Sodium (Lovenox -) 80 mg SQ BID [facility] Last Admin: 01/13/20 09:52 Dose: 80 mg Documented by: Gabapentin (Neurontin -) 300 mg PO BID [facility] Last Admin: 01/13/20 09:52 Dose: 300 mg Documented by: Guaifenesin (Robitussin -) 10 ml PO Q6H PRN PRN Reason: COUGH Last Admin: 01/13/20 12:35 Dose: 10 ml Documented by: Sodium Chloride (Normal Saline -) 1,000 mls @ 40 mls/hr IV ASDIR [facility] Last Admin: 01/12/20 12:20 Dose: 40 mls/hr Documented by: Cefazolin Sodium 2 gm/ (Dextrose) 50 mls @ 200 mls/hr IVPB Q8H-IV [facility] Oxycodone HCl (Roxicodone -) 5 mg PO Q6H PRN PRN Reason: PAIN LEVEL 6-10 Last Admin: 01/13/20 12:30 Dose: 5 mg Documented by: Pantoprazole Sodium (Protonix -) 40 mg PO DAILY [facility] Last Admin: 01/13/20 09:52 Dose: 40 mg Documented by: Polyethylene Glycol (Miralax (For Daily Use) -) 17 gm PO DAILY [facility] Last Admin: 01/13/20 09:52 Dose: 17 grams Documented by: Sandra (Senna -) 1 tab PO HS [facility] Last Admin: 01/12/20 21:39 Dose: 1 tab Documented by: - Objective Vital Signs: Vital Signs Temperature 98.7 F 01/13/20 10:00 Pulse Rate 90 01/13/20 10:00 Respiratory Rate 20 01/13/20 10:00 Blood Pressure 100/67 01/13/20 10:00 O2 Sat by Pulse Oximetry (%) 98 01/13/20 10:00 Constitutional: Yes: No Distress Eyes: Yes: Conjunctiva Clear Cardiovascular: Yes: Regular Rate and Rhythm, S1, S2 Respiratory: Yes: CTA Bilaterally Gastrointestinal: Yes: Normal Bowel Sounds, Soft. No: Tenderness Integumentary: Yes: Other (+ERYTHEMA, R GROIN WITH WOUND DEHISCENCE) Labs: CBC, BMP 01/13/20 06:14 01/12/20 05:45 INR, PTT INR 1.35 (0.83-1.09) H 01/09/20 09:40 Assessment/Plan STAPH BACTEREMIA SECONDARY TO SKIN SOURCE WOUND INFECTION ? INFECTED GRAFT FEVER/ LEUKOCYTOSIS IMPROVED THROMBOCYTOPENIA PCN ALLERGY SUBSTITUTE CEFAZOLIN 2GM Q8H
[2020-01-13] MEDS: CEFAZOLIN 2 GM/D5W 2 GM/50 ML ML IVPB SCH ×2 (14:37→17:18)
--- NOTE | 2020-01-13 14:46 | PN ---
Progress Note (short form) - Note Progress Note: VASCULAR SURGERY Doing well. Remains afebrile. Last fever recorded on 01/10/20. Currently afeb States he feels like his lower extremities are swollen. Denies CP, SOB or FRANCIS. Last Vital Signs Temp Pulse Resp BP Pulse Ox 98.3 F 102 H 20 118/62 98 01/13/20 14:00 01/13/20 14:00 01/13/20 14:00 01/13/20 14:00 01/13/20 10:00 Laboratory Tests 01/09/20 01/10/20 01/11/20 01/12/20 01/13/20 09:40 06:40 05:52 05:45 WBC 19.3 H 10.5 H 7.5 8.9 9.9 BMP 01/12/20 05:45 Serology Test 01/09/20 09:40 COVID-19 ([facility]) Not detected INR, PTT INR 1.35 (0.83-1.09) H 01/09/20 09:40 Microbiology 01/11/20 05:58 Blood - Peripheral Venous Blood Culture - Preliminary NO GROWTH OBTAINED AFTER 24HRS. INCUBATION TO CONT FOR 4 DAYS. 01/09/20 10:10 Thigh - Right thigh wound culture Gram Stain - Final - Staphylococcus Aureus 01/09/20 09:40 Blood - Peripheral Venous Blood Culture - Preliminary Sta phylococcus Aureus GEN: alert. nad. ABD: soft. nt Rt groin: open wound at inguinal crease (superior aspect of old incision), mixed seropurulent drainage. Old packing removed and wound explored with sterile Q- tip. No undermining or pockets found. Graft not exposed. Mild per-wound erythema. Not malodorous. TTP. LE: +1 swelling bilateral. Leg --> toes warm. Cap refill < 3 sec. A/P: 59 y/o M vasculopath with multiple prior vascular interventions/grafts to RLE (h/o aorto-bifem bypass in 2011, R femoral-tibial bypass in October 2017, s/p Right ilio-tibial bypass with non-reversed saphenous vein (04/08/18), s/p Right axillary-fem and fem-fem bypass (07/04), s/p Bypass from axillary graft to tibial bypass graft w/ SVG) on Lovenox with h/o multiple graft occlusions s/p thrombectomies/lysis. Pt reports he was seen at [facility] by Dr Stoner's partner (Dr Back) in the beginning of December after occluding his RLE graft. Pt was treated with lysis/angioplasty and graft was successfully opened. Pt reports he was doing fine until this past Friday when he began feeling weak and had chills. [facility] found to [facility] seps [facility]. Patient's Tmax of 102.9F on 01/09/20. Last recorded fever of 101.4F on 01/10/20. Tcurrent afeb. Blood cultures bacteremia staph aureus. Echo without vegetations -Wound repacked while on rounds (betadine dressing) -Dr. Ponce covering until Dr. Stoner returns 01/17/20 -ID following -- iv abx -Trend WBC -Trend Fever curve -If worsens before Dr. Stoner's return, patient will need to be transferred to [facility] -Patient aware and agrees to plan. -Will cont to monitor closely -Replete elytes prn -Repeat Covid ordered as current one will be out of date should patient need to go to [place] possibly Friday w/ Dr. Stoner Above plan discussed with Dr. Ponce and agrees. Problem List - Problems (1) Staphylococcus aureus bacteremia with sepsis Code(s): A41.01 - SEPSIS DUE TO METHICILLIN SUSCEPTIBLE STAPHYLOCOCCUS AUREUS (2) Post-operative infection Code(s): T81.40XA - INFECTION FOLLOWING A PROCEDURE, UNSPECIFIED, INIT Qualifiers: Encounter type: initial encounter Postoperative infection type: unspecified type Qualified Code(s): T81.40XA - Infection following a procedure, unspecified, initial encounter (3) HLD (hyperlipidemia) Code(s): E78.5 - HYPERLIPIDEMIA, UNSPECIFIED Qualifiers: Hyperlipidemia type: pure hypercholesterolemia Qualified Code(s): E78.00 - Pure hypercholesterolemia, unspecified; E78.0 - Pure hypercholesterolemia
[2020-01-13] MEDS: SENNOSIDES 8.6MG TABLET (FP) PO SCH (21:32)
[2020-01-13] MEDS: ATORVASTATIN CA 40 MG TABLET (FP) PO SCH (21:32)
[2020-01-14] MEDS: oxyCODONE HCL 5 MG TABLET PO PRN ×4 (01:42→23:44)
[2020-01-14] MEDS: CEFAZOLIN 2 GM/D5W 2 GM/50 ML ML IVPB SCH ×3 (01:42→17:21)
[2020-01-14] MEDS: ACETAMINOPHEN 325 MG TABLET (FP) PO PRN ×4 (01:42→21:33)
[2020-01-14] MEDS: guaiFENesin 200 MG/10 ML 10 ML UNIT-DOSE CUPS PO PRN ×3 (03:39→23:43)
--- NOTE | 2020-01-14 06:34 | PN ---
Progress Note, Physician Chief Complaint: febrile Denies CP/SOB TELE: NSR. History of Present Illness: WOUND STAPH BACTEREMIA ALICIA PAD Former SMOKER - Current Medication List Current Medications: Active Medications Acetaminophen (Tylenol -) 325 mg PO Q6H PRN PRN Reason: PAIN LEVEL 6-10 Last Admin: 01/14/20 01:42 Dose: 325 mg Documented by: Albuterol/Ipratropium (Duoneb -) 1 amp NEB RQID [facility] Last Admin: 01/13/20 20:11 Dose: 1 amp Documented by: Atorvastatin Calcium (Lipitor -) 40 mg PO [facility] Last Admin: 01/13/20 21:32 Dose: 40 mg Documented by: Clopidogrel Bisulfate (Plavix -) 75 mg PO DAILY [facility] Last Admin: 01/13/20 09:52 Dose: 75 mg Documented by: Docusate Sodium (Colace -) 100 mg PO DAILY [facility] Last Admin: 01/13/20 09:52 Dose: 100 mg Documented by: Enoxaparin Sodium (Lovenox -) 80 mg SQ BID [facility] Last Admin: 01/13/20 21:32 Dose: 80 mg Documented by: Gabapentin (Neurontin -) 300 mg PO BID [facility] Last Admin: 01/13/20 21:32 Dose: 300 mg Documented by: Guaifenesin (Robitussin -) 10 ml PO Q6H PRN PRN Reason: COUGH Last Admin: 01/14/20 03:39 Dose: 10 ml Documented by: Cefazolin Sodium/Dextrose (Ancef 2 Gm Premixed Ivpb -) 2 gm in 50 mls @ 100 mls/hr IVPB Q8H-IV [facility] Last Admin: 01/14/20 01:42 Dose: 100 mls/hr Documented by: Oxycodone HCl (Roxicodone -) 5 mg PO Q6H PRN PRN Reason: PAIN LEVEL 6-10 Last Admin: 01/14/20 01:42 Dose: 5 mg Documented by: Pantoprazole Sodium (Protonix -) 40 mg PO DAILY [facility] Last Admin: 01/13/20 09:52 Dose: 40 mg Documented by: Polyethylene Glycol (Miralax (For Daily Use) -) 17 gm PO DAILY [facility] Last Admin: 01/13/20 09:52 Dose: 17 grams Documented by: Senna (Senna -) 1 tab PO [facility] Last Admin: 01/13/20 21:32 Dose: 1 tab Documented by: - Objective Vital Signs: Vital Signs Temperature 98.3 F 01/14/20 01:00 Pulse Rate 99 H 01/14/20 01:00 Respiratory Rate 20 01/14/20 01:00 Blood Pressure 111/71 01/14/20 01:00 O2 Sat by Pulse Oximetry (%) 99 01/14/20 01:00 Constitutional: Yes: No Distress Eyes: Yes: Conjunctiva Clear Cardiovascular: Yes: Regular Rate and Rhythm, Murmur (2/6 RANDALL RSB c/w Aortic slerosis and or known MR on echo) Respiratory: Yes: CTA Bilaterally Gastrointestinal: Yes: Soft (nt) Edema: No Neurological: Yes: Alert, Oriented Labs: CBC, BMP 01/13/20 06:14 01/12/20 05:45 INR, PTT INR 1.35 (0.83-1.09) H 01/09/20 09:40 Microbiology 01/09/20 10:10 Thigh - Right Gram Stain - Final 01/09/20 10:10 Thigh - Right Wound Culture - Final Staphylococcus Aureus Finegoldia Magna 01/09/20 09:40 Blood - Peripheral Venous Blood Culture - Final Staphylococcus Latex Coag Pos 01/09/20 09:40 Blood - Peripheral Venous Blood Culture - Final Staphylococcus Aureus 01/11/20 05:58 Blood - Peripheral Venous Blood Culture - Preliminary NO GROWTH OBTAINED AFTER 72 HOURS, INCUBATION TO CONTINUE FOR 2 DAYS. Laboratory Tests 01/09/20 01/09/20 01/13/20 09:40 10:10 15:50 WBC Hgb Plt Count Sodium Potassium Creatinine Calcium Stool Occult Blood Negative COVID-19 ([facility]) Not detected Pending 01/14/20 01/14/20 06:40 06:40 WBC 12.1 H Hgb 11.4 L Plt Count 203 D Sodium 135 L Potassium 3.2 L Creatinine 1.1 Calcium 8.0 L Stool Occult Blood COVID-19 ([facility]) - ....Imaging EKG: Image Reviewed Assessment/Plan DATA: CT chest: mild chronic lung dz with no acute pathology ecg: sr, nl intervals, no ischemic changes mibi 11/2016: no ischemia, lvef 80 echo 12/2019 nl LV function, impaired relaxation, nl RV, mild MR, tr to mild TR, mildly sclerotic AV no dysfunction tele: sr a/p: 59 m hx htn, pad here with b/l leg pain, fever, bacteremia fever, wound infection, staph bacteremia, sepsis: - no vegetation on echo - repeat bcx no growth, tele with NSR; normal [place] interval on ECG - on IV abx per primary, ID -OK to d/c tele pad, history of graft thrombosis: - cont aspirin, plavix, and therapeutic lovenox per vascular htn: -not on meds at home -soft BPs here, monitor ALICIA: - likely prerenal, improved with IVF - renal following
[2020-01-14 07:36] LABS: HEMOGLOBIN 11.4 GM/dL (11.7-16.9); MCH 29.9 pg (25.7-33.7); MCHC 33.4 g/dl (32.0-35.9); MEAN CELL VOLUME 89.5 fl (80-96); MEAN PLT VOLUME 8.6 fl (7.5-11.1); PLATELET COUNT 203 K/MM3 (134-434); RDW 16.2 % (11.9-15.9); WHITE BLOOD COUNT 12.1 K/mm3 (4.0-10.0)
[2020-01-14] MEDS: ALBUTEROL SO4 2.5/IPRATROPIUM 0.5 INH SOL 3 ML VIAL.NEB. NEB SCH ×4 (07:50→21:22)
[2020-01-14 08:05] LABS: ALBUMIN 1.8 g/dl (3.4-5.0); BLOOD UREA NITROGEN 10.4 mg/dL (7-18); CREATININE 1.1 mg/dL (0.55-1.3); MAGNESIUM 1.9 mg/dL (1.8-2.4); POTASSIUM 3.2 mmol/L (3.5-5.1); TOT PROT 5.7 g/dl (6.4-8.2)
--- NOTE | 2020-01-14 08:44 | PN ---
Progress Note, Physician - Current Medication List Current Medications: Active Medications Acetaminophen (Tylenol -) 325 mg PO Q6H PRN PRN Reason: PAIN LEVEL 6-10 Last Admin: 01/14/20 08:30 Dose: 325 mg Documented by: Albuterol/Ipratropium (Duoneb -) 1 amp NEB RQID [facility] Last Admin: 01/14/20 07:50 Dose: 1 amp Documented by: Atorvastatin Calcium (Lipitor -) 40 mg PO HS [facility] Last Admin: 01/13/20 21:32 Dose: 40 mg Documented by: Clopidogrel Bisulfate (Plavix -) 75 mg PO DAILY [facility] Last Admin: 01/13/20 09:52 Dose: 75 mg Documented by: Docusate Sodium (Colace -) 100 mg PO DAILY [facility] Last Admin: 01/13/20 09:52 Dose: 100 mg Documented by: Enoxaparin Sodium (Lovenox -) 80 mg SQ BID [facility] Last Admin: 01/13/20 21:32 Dose: 80 mg Documented by: Gabapentin (Neurontin -) 300 mg PO BID [facility] Last Admin: 01/13/20 21:32 Dose: 300 mg Documented by: Guaifenesin (Robitussin -) 10 ml PO Q6H PRN PRN Reason: COUGH Last Admin: 01/14/20 03:39 Dose: 10 ml Documented by: Cefazolin Sodium/Dextrose (Ancef 2 Gm Premixed Ivpb -) 2 gm in 50 mls @ 100 mls/hr IVPB Q8H-IV [facility] Last Admin: 01/14/20 01:42 Dose: 100 mls/hr Documented by: Oxycodone HCl (Roxicodone -) 5 mg PO Q6H PRN PRN Reason: PAIN LEVEL 6-10 Last Admin: 01/14/20 08:31 Dose: 5 mg Documented by: Pantoprazole Sodium (Protonix -) 40 mg PO DAILY [facility] Last Admin: 01/13/20 09:52 Dose: 40 mg Documented by: Polyethylene Glycol (Miralax (For Daily Use) -) 17 gm PO DAILY [facility] Last Admin: 01/13/20 09:52 Dose: 17 grams Documented by: Senna (Senna -) 1 tab PO [facility] Last Admin: 01/13/20 21:32 Dose: 1 tab Documented by: - Objective Vital Signs: Vital Signs Temperature 99.6 F 01/14/20 05:00 Pulse Rate 98 H 01/14/20 05:00 Respiratory Rate 20 01/14/20 05:00 Blood Pressure 108/69 01/14/20 05:00 O2 Sat by Pulse Oximetry (%) 99 01/14/20 01:00 Cardiovascular: Yes: Regular Rate and Rhythm Respiratory: Yes: Regular, CTA Bilaterally Gastrointestinal: Yes: Normal Bowel Sounds, Soft Wound/Incision: Yes: Draining, Reddened Labs: CBC, BMP 01/14/20 06:40 01/14/20 06:40 INR, PTT INR 1.35 (0.83-1.09) H 01/09/20 09:40 Problem List - Problems (1) Sepsis Code(s): A41.9 - SEPSIS, UNSPECIFIED ORGANISM Qualifiers: Sepsis type: sepsis due to unspecified organism Sepsis acute organ dysfunction status: with acute organ dysfunction Severe sepsis acute organ dysfunction type: unspecified Severe sepsis shock status: unspecified Qualified Code(s): A41.9 - Sepsis, unspecified organism; R65.20 - Severe sepsis without septic shock (2) Arterial occlusion, lower extremity Code(s): I70.209 - UNSP ATHSCL LAC [place] ARTERIES OF EXTREMITIES, UNSP EXTREMITY (3) ALICIA (acute kidney injury) Code(s): N17.9 - ACUTE KIDNEY FAILURE, UNSPECIFIED (4) Cough Code(s): R05 - COUGH (5) HLD (hyperlipidemia) Code(s): E78.5 - HYPERLIPIDEMIA, UNSPECIFIED Qualifiers: Hyperlipidemia type: pure hypercholesterolemia Qualified Code(s): E78.00 - Pure hypercholesterolemia, unspecified; E78.0 - Pure hypercholesterolemia Assessment/Plan - Problems (1) ALICIA (acute kidney injury) Assessment/Plan: -resolved -Monitor trend -Continue IVF for now Problems reviewed: Yes Code(s): N17.9 - ACUTE KIDNEY FAILURE, UNSPECIFIED (2) Post-operative infection Assessment/Plan: -ID consult on board -IV Vanco -Cultures: Microbiology 01/11/20 05:58 Blood - Peripheral Venous Blood Culture - Preliminary NO GROWTH OBTAINED AFTER 48 HOURS, INCUBATION TO CONTINUE FOR 3 DAYS. 01/11/20 05:52 Blood - Peripheral Venous Blood Culture - Preliminary NO GROWTH OBTAINED AFTER 48 HOURS, INCUBATION TO CONTINUE FOR 3 DAYS. 01/09/20 09:40 Blood - Peripheral Venous Blood Culture - Final Staphylococcus Latex Coag Pos 01/09/20 09:40 Blood - Peripheral Venous Blood Culture - Final Staphylococcus Aureus 01/09/20 10:10 Thigh - Right Gram Stain - Final 01/09/20 10:10 Thigh - Right Wound Culture - Preliminary Staphylococcus Aureus Pending Organism 01/09/20 11:50 Urine - Urine Clean Catch Urine Culture - Final NO GROWTH OBTAINED -Vascular surgery on board -Afebrile -leukocytosis improved Problems reviewed: Yes Code(s): T81.40XA - INFECTION FOLLOWING A PROCEDURE, UNSPECIFIED, INIT Qualifiers: Encounter type: initial encounter Postoperative infection type: unspecified type Qualified Code(s): T81.40XA - Infection following a procedure, unspecified, initial encounter (3) Staphylococcus aureus bacteremia with sepsis Assessment/Plan: as above Problems reviewed: Yes Code(s): A41.01 - SEPSIS DUE TO METHICILLIN SUSCEPTIBLE STAPHYLOCOCCUS AUREUS (4) Arterial occlusion, lower extremity Problems reviewed: Yes Code(s): I70.209 - UNSP ATHSCL LAC [place] ARTERIES OF EXTREMITIES, UNSP EXTREMITY (5) HLD (hyperlipidemia) Assessment/Plan: -HDL at 9 -LDL at 35 -Decrease atorvastatin to 40 mg po HS Problems reviewed: Yes Code(s): E78.5 - HYPERLIPIDEMIA, UNSPECIFIED Qualifiers: Hyperlipidemia type: pure hypercholesterolemia Qualified Code(s): E78.00 - Pure hypercholesterolemia, unspecified; E78.0 - Pure hypercholesterolemia
--- NOTE | 2020-01-14 10:41 | PN ---
Progress Note, Physician History of Present Illness: PULMONARY ALERT,COMFORTABLE,DYSPNEA IMPROVING,T MAX 101.8 - Current Medication List Current Medications: Active Medications Acetaminophen (Tylenol -) 325 mg PO Q6H PRN PRN Reason: PAIN LEVEL 6-10 Last Admin: 01/14/20 08:30 Dose: 325 mg Documented by: Albuterol/Ipratropium (Duoneb -) 1 amp NEB RQID [facility] Last Admin: 01/14/20 07:50 Dose: 1 amp Documented by: Atorvastatin Calcium (Lipitor -) 40 mg PO [facility] Last Admin: 01/13/20 21:32 Dose: 40 mg Documented by: Clopidogrel Bisulfate (Plavix -) 75 mg PO DAILY [facility] Last Admin: 01/13/20 09:52 Dose: 75 mg Documented by: Docusate Sodium (Colace -) 100 mg PO DAILY [facility] Last Admin: 01/13/20 09:52 Dose: 100 mg Documented by: Enoxaparin Sodium (Lovenox -) 80 mg SQ BID [facility] Last Admin: 01/13/20 21:32 Dose: 80 mg Documented by: Gabapentin (Neurontin -) 300 mg PO BID [facility] Last Admin: 01/13/20 21:32 Dose: 300 mg Documented by: Guaifenesin (Robitussin -) 10 ml PO Q6H PRN PRN Reason: COUGH Last Admin: 01/14/20 03:39 Dose: 10 ml Documented by: Cefazolin Sodium/Dextrose (Ancef 2 Gm Premixed Ivpb -) 2 gm in 50 mls @ 100 mls/hr IVPB Q8H-IV [facility] Last Admin: 01/14/20 01:42 Dose: 100 mls/hr Documented by: Oxycodone HCl (Roxicodone -) 5 mg PO Q6H PRN PRN Reason: PAIN LEVEL 6-10 Last Admin: 01/14/20 08:31 Dose: 5 mg Documented by: Pantoprazole Sodium (Protonix -) 40 mg PO DAILY [facility] Last Admin: 01/13/20 09:52 Dose: 40 mg Documented by: Polyethylene Glycol (Miralax (For Daily Use) -) 17 gm PO DAILY [facility] Last Admin: 01/13/20 09:52 Dose: 17 grams Documented by: Senna (Senna -) 1 tab PO [facility] Last Admin: 01/13/20 21:32 Dose: 1 tab Documented by: - Objective Vital Signs: Vital Signs Temperature 99.6 F 01/14/20 05:00 Pulse Rate 98 H 01/14/20 05:00 Respiratory Rate 20 01/14/20 05:00 Blood Pressure 108/69 01/14/20 05:00 O2 Sat by Pulse Oximetry (%) 99 01/14/20 01:00 Constitutional: Yes: Well Nourished, Calm Eyes: Yes: WNL HENT: Yes: WNL Neck: Yes: WNL Cardiovascular: Yes: Regular Rate and Rhythm, S1, S2 Respiratory: Yes: Rales (FEW SCATTERED CRACKLES) Gastrointestinal: Yes: Normal Bowel Sounds, Soft Extremities: Yes: WNL Edema: No Labs: CBC, BMP 01/14/20 06:40 01/14/20 06:40 INR, PTT INR 1.35 (0.83-1.09) H 01/09/20 09:40 Problem List - Problems (1) Staphylococcus aureus bacteremia with sepsis Code(s): A41.01 - SEPSIS DUE TO METHICILLIN SUSCEPTIBLE STAPHYLOCOCCUS AUREUS (2) ALICIA (acute kidney injury) Code(s): N17.9 - ACUTE KIDNEY FAILURE, UNSPECIFIED (3) Cough Code(s): R05 - COUGH (4) HLD (hyperlipidemia) Code(s): E78.5 - HYPERLIPIDEMIA, UNSPECIFIED Qualifiers: Hyperlipidemia type: pure hypercholesterolemia Qualified Code(s): E78.00 - Pure hypercholesterolemia, unspecified; E78.0 - Pure hypercholesterolemia Assessment/Plan Assessment/Plan URI COVID19 PCR NEGATIVE Sepsis/Bacteremia Staph Aureus Acute Kidney Injury improved Hyponatremia improved PAD HTN Hyperlipidemia - antibiotics as per ID - IVF - monitor urine output, creatinine - monitor lytes - anticoagulation - O2 to keep Spo2 >90% DR GONG
[2020-01-14] MEDS: POLYETHYLENE GLYCOL 3350 119 GM BTL PO SCH (10:44)
[2020-01-14] MEDS: PANTOPRAZOLE 40 MG TABLET PO SCH (10:44)
[2020-01-14] MEDS: ENOXAPARIN NA (PORCINE) 80 MG/0.8 ML DISP.SYRIN SQ SCH (10:44)
[2020-01-14] MEDS: GABAPENTIN 300 MG CAPSULE PO SCH ×2 (10:44→21:25)
[2020-01-14] MEDS: CLOPIDOGREL BISULFATE 75 MG TABLET (FP) PO SCH (10:44)
[2020-01-14] MEDS: DOCUSATE SODIUM 100 MG CAPSULE (FP) PO SCH (10:44)
--- NOTE | 2020-01-14 11:02 | PN ---
Progress Note (short form) - Note Progress Note: VASCULAR SURGERY Per RN notes from last night, patient spiked temp to 101.8F (oral) at 1951 hrs. Profuse sweating. Administered tylenol and broke the fever. Last Vital Signs Temp Pulse Resp BP Pulse Ox 99.6 F 98 H 20 108/69 99 01/14/20 05:00 01/14/20 05:00 01/14/20 05:00 01/14/20 05:00 01/14/20 01:00 Fever Trend 01/13/20 01/13/20 01/13/20 01/13/20 01/14/20 14:00 17:00 19:51 01:00 05:00 Temperature 98.3 F 100.5 F 101.8 F 98.3 99.6 WBC Trend Tests 01/09/20 01/10/20 01/11/20 01/12/20 01/13/20 01/14/20 09:40 06:40 05:52 05:45 06:14 06:40 WBC 19.3 H 10.5 H 7.5 8.9 9.9 12.1 Serology Test 01/13/20 15:50 COVID-19 ([facility]) Not detected PE GEN: alert. nad. ABD: soft. nt Rt groin: open wound at inguinal crease (superior aspect of old incision), mixed seropurulent drainage. Old packing removed and wound explored with sterile Q- tip. No undermining or pockets found. Graft not exposed. Mild per-wound erythema. Not malodorous. TTP. LE: +1 swelling bilateral. Leg --> toes warm. Cap refill < 3 sec. A/P: 59 y/o M vasculopath with multiple prior vascular interventions/grafts to RLE (h/o aorto-bifem bypass in 2011, R femoral-tibial bypass in October 2017, s/p Right ilio-tibial bypass with non-reversed saphenous vein (04/08/18), s/p Right axillary-fem and fem-fem bypass (07/04), s/p Bypass from axillary graft to tibial bypass graft w/ SVG) on Lovenox with h/o multiple graft occlusions s/p thrombectomies/lysis. Pt reports he was seen at [facility] by Dr Stoner's partner (Dr Back) in the beginning of December after occluding his RLE graft. Pt was treated with lysis/angioplasty and graft was successfully opened. Pt reports he was doing fine until this past Friday when he began feeling weak and had chills. Presented to [facility] and was found to be septic/bacteremia (Staph. Aureus). - Scheduled for OR tomorrow (Friday) 9AM for revision of axillofemoral bypass and removal of infected graft - Lovenox held - Cont ASA and Plavix - NPO after midnight - ID following -- Cefazolin 2gm Q8H; called Dr. Benjamin and awaiting response to see if he would like to resume Vanco - Medical optimization Above plan discussed with Dr. Stoner and agrees Problem List - Problems (1) Staphylococcus aureus bacteremia with sepsis Code(s): A41.01 - SEPSIS DUE TO METHICILLIN SUSCEPTIBLE STAPHYLOCOCCUS AUREUS (2) Post-operative infection Code(s): T81.40XA - INFECTION FOLLOWING A PROCEDURE, UNSPECIFIED, INIT Qualifiers: Encounter type: initial encounter Postoperative infection type: unspecified type Qualified Code(s): T81.40XA - Infection following a procedure, unspecified, initial encounter (3) HLD (hyperlipidemia) Code(s): E78.5 - HYPERLIPIDEMIA, UNSPECIFIED Qualifiers: Hyperlipidemia type: pure hypercholesterolemia Qualified Code(s): E78.00 - Pure hypercholesterolemia, unspecified; E78.0 - Pure hypercholesterolemia
[2020-01-14] MEDS ORDERED: POTASSIUM CHLORIDE TABS 20 MEQ TABLET.ER (FP) PO ONE (12:07)
--- NOTE | 2020-01-14 12:31 | PN ---
Progress Note (short form) - Note Progress Note: Patient for the OR in am d/w cardiology will replace K and repeat labs Problem List - Problems (1) Sepsis Code(s): A41.9 - SEPSIS, UNSPECIFIED ORGANISM Qualifiers: Sepsis type: sepsis due to unspecified organism Sepsis acute organ dysfunction status: with acute organ dysfunction Severe sepsis acute organ dysfunction type: unspecified Severe sepsis shock status: unspecified Qualified Code(s): A41.9 - Sepsis, unspecified organism; R65.20 - Severe sepsis without septic shock (2) Arterial occlusion, lower extremity Code(s): I70.209 - UNSP ATHSCL [place] ARTERIES OF EXTREMITIES, UNSP EXTREMITY (3) ALICIA (acute kidney injury) Code(s): N17.9 - ACUTE KIDNEY FAILURE, UNSPECIFIED (4) Cough Code(s): R05 - COUGH (5) HLD (hyperlipidemia) Code(s): E78.5 - HYPERLIPIDEMIA, UNSPECIFIED Qualifiers: Hyperlipidemia type: pure hypercholesterolemia Qualified Code(s): E78.00 - Pure hypercholesterolemia, unspecified; E78.0 - Pure hypercholesterolemia
[2020-01-14] MEDS: VANCOMYCIN 1 GRAM (PRE-DOCKED) 1,000 MG/250 ML BAG IVPB SCH ×2 (13:07→23:59)
--- NOTE | 2020-01-14 14:12 | PN ---
Progress Note, Physician History of Present Illness: AWAKE, ALERT IM BED SPIKED TEMP 101.8 WBC INCREASED 12K REPEAT BC OBTAINED C/O BILATERAL FOOT AND LE PAIN STILL WITH COUGH SCHEDULED FOR OR TOMORROW BC MSSA WOUND C/S MSSA, FINEGOLDIA - Current Medication List Current Medications: Active Medications Acetaminophen (Tylenol -) 325 mg PO Q6H PRN PRN Reason: PAIN LEVEL 6-10 Last Admin: 01/14/20 08:30 Dose: 325 mg Documented by: Albuterol/Ipratropium (Duoneb -) 1 amp NEB RQID [facility] Last Admin: 01/14/20 11:27 Dose: 1 amp Documented by: Atorvastatin Calcium (Lipitor -) 40 mg PO [facility] Last Admin: 01/13/20 21:32 Dose: 40 mg Documented by: Clopidogrel Bisulfate (Plavix -) 75 mg PO DAILY [facility] Last Admin: 01/14/20 10:44 Dose: 75 mg Documented by: Docusate Sodium (Colace -) 100 mg PO DAILY [facility] Last Admin: 01/14/20 10:44 Dose: 100 mg Documented by: Gabapentin (Neurontin -) 300 mg PO BID [facility] Last Admin: 01/14/20 10:44 Dose: 300 mg Documented by: Guaifenesin (Robitussin -) 10 ml PO Q6H PRN PRN Reason: COUGH Last Admin: 01/14/20 03:39 Dose: 10 ml Documented by: Cefazolin Sodium/Dextrose (Ancef 2 Gm Premixed Ivpb -) 2 gm in 50 mls @ 100 mls/hr IVPB Q8H-IV [facility] Last Admin: 01/14/20 10:44 Dose: 100 mls/hr Documented by: Vancomycin HCl (Vancomycin (Pre-Docked)) 1,000 mg in 250 mls @ 166.667 mls/hr IVPB BID@0100,1300 [facility]; Protocol Last Admin: 01/14/20 13:07 Dose: 166.667 mls/hr Documented by: Pantoprazole Sodium (Protonix -) 40 mg PO DAILY [facility] Last Admin: 01/14/20 10:44 Dose: 40 mg Documented by: Polyethylene Glycol (Miralax (For Daily Use) -) 17 gm PO DAILY [facility] Last Admin: 01/14/20 10:44 Dose: 17 grams Documented by: Senna (Senna -) 1 tab PO [facility] Last Admin: 01/13/20 21:32 Dose: 1 tab Documented by: - Objective Vital Signs: Vital Signs Temperature 98.5 F 01/14/20 09:00 Pulse Rate 92 H 01/14/20 09:00 Respiratory Rate 20 01/14/20 09:00 Blood Pressure 103/56 L 01/14/20 09:00 O2 Sat by Pulse Oximetry (%) 100 01/14/20 09:00 Constitutional: Yes: No Distress Eyes: Yes: Conjunctiva Clear Cardiovascular: Yes: Regular Rate and Rhythm Respiratory: Yes: CTA Bilaterally Gastrointestinal: Yes: Normal Bowel Sounds, Soft Extremities: Yes: Other (DECREASED ERYTHEMA R GROIN) Labs: CBC, BMP 01/14/20 06:40 01/14/20 06:40 INR, PTT INR 1.35 (0.83-1.09) H 01/09/20 09:40 Assessment/Plan STAPH BACTEREMIA SECONDARY TO SKIN SOURCE WOUND INFECTION ? INFECTED GRAFT FEVER/ LEUKOCYTOSIS RECURRENT THROMBOCYTOPENIA PCN ALLERGY REPEAT BC OBTAINED CONTINUE CEFAZOLIN 2GM Q8H RESUME VANCOMYCIN WILL OBTAIN CXR IN LIGHT OF FEVER AND PERSISTANT COUGH
--- NOTE | 2020-01-14 15:33 | PN ---
Progress Note, Physician History of Present Illness: Pt seen and examined at bedside. He is awake and alert. He denies shortness of breath. - Current Medication List Current Medications: Active Medications Acetaminophen (Tylenol -) 325 mg PO Q6H PRN PRN Reason: PAIN LEVEL 6-10 Last Admin: 01/14/20 08:30 Dose: 325 mg Documented by: Albuterol/Ipratropium (Duoneb -) 1 amp NEB RQID [facility] Last Admin: 01/14/20 11:27 Dose: 1 amp Documented by: Atorvastatin Calcium (Lipitor -) 40 mg PO HS [facility] Last Admin: 01/13/20 21:32 Dose: 40 mg Documented by: Clopidogrel Bisulfate (Plavix -) 75 mg PO DAILY [facility] Last Admin: 01/14/20 10:44 Dose: 75 mg Documented by: Docusate Sodium (Colace -) 100 mg PO DAILY [facility] Last Admin: 01/14/20 10:44 Dose: 100 mg Documented by: Gabapentin (Neurontin -) 300 mg PO BID [facility] Last Admin: 01/14/20 10:44 Dose: 300 mg Documented by: Guaifenesin (Robitussin -) 10 ml PO Q6H PRN PRN Reason: COUGH Last Admin: 01/14/20 03:39 Dose: 10 ml Documented by: Cefazolin Sodium/Dextrose (Ancef 2 Gm Premixed Ivpb -) 2 gm in 50 mls @ 100 mls/hr IVPB Q8H-IV [facility] Last Admin: 01/14/20 10:44 Dose: 100 mls/hr Documented by: Vancomycin HCl (Vancomycin (Pre-Docked)) 1,000 mg in 250 mls @ 166.667 mls/hr IVPB BID@0100,1300 [facility]; Protocol Last Admin: 01/14/20 13:07 Dose: 166.667 mls/hr Documented by: Pantoprazole Sodium (Protonix -) 40 mg PO DAILY [facility] Last Admin: 01/14/20 10:44 Dose: 40 mg Documented by: Polyethylene Glycol (Miralax (For Daily Use) -) 17 gm PO DAILY [facility] Last Admin: 01/14/20 10:44 Dose: 17 grams Documented by: Senna (Senna -) [address] [facility] Last Admin: 01/13/20 21:32 Dose: 1 tab Documented by: - Objective Vital Signs: Vital Signs Temperature 98.5 F 01/14/20 09:00 Pulse Rate 92 H 01/14/20 09:00 Respiratory Rate 20 01/14/20 09:00 Blood Pressure 103/56 L 01/14/20 09:00 O2 Sat by Pulse Oximetry (%) 100 01/14/20 09:00 Constitutional: Yes: Calm Eyes: Yes: Conjunctiva Clear HENT: Yes: Atraumatic Neck: Yes: Supple Cardiovascular: Yes: S1, S2 Respiratory: Yes: CTA Bilaterally Gastrointestinal: Yes: Normal Bowel Sounds, Soft Genitourinary: Yes: WNL Musculoskeletal: Yes: WNL Edema: LLE: Trace, RLE: Trace Neurological: Yes: Oriented Psychiatric: Yes: Oriented Labs: CBC, BMP 01/14/20 06:40 01/14/20 06:40 INR, PTT INR 1.35 (0.83-1.09) H 01/09/20 09:40 Problem List - Problems (1) ALICIA (acute kidney injury) Code(s): N17.9 - ACUTE KIDNEY FAILURE, UNSPECIFIED (2) Cough Code(s): R05 - COUGH Assessment/Plan Current Medications Generic Name Dose Route Start Last Admin Trade Name Freq PRN Reason Stop Dose Admin Acetaminophen 325 mg 01/09/20 15:45 01/14/20 08:30 Tylenol - PO 325 mg Q6H PRN Administration PAIN LEVEL 6-10 Albuterol/Ipratropium 1 amp 01/10/20 12:00 01/14/20 11:27 Duoneb - NEB 1 amp RQID [facility] Administration Atorvastatin Calcium 40 mg 01/11/20 22:00 01/13/20 21:32 Lipitor - PO 40 mg HS [facility] Administration Clopidogrel Bisulfate 75 mg 01/10/20 10:00 01/14/20 10:44 Plavix - PO 75 mg DAILY [facility] Administration Docusate Sodium 100 mg 01/09/20 15:45 01/14/20 10:44 Colace - PO 100 mg DAILY [facility] Administration Gabapentin 300 mg 01/09/20 22:00 01/14/20 10:44 Neurontin - PO 300 mg BID [facility] Administration Guaifenesin 10 ml 01/10/20 11:30 01/14/20 03:39 Robitussin - PO 10 ml Q6H PRN Administration COUGH Cefazolin Sodium/Dextrose 2 gm in 50 mls @ 100 mls/hr 01/13/20 14:00 01/14/20 10:44 Ancef 2 Gm Premixed Ivpb - IVPB 100 mls/hr Q8H-IV [facility] Administration Vancomycin HCl 1,000 mg in 250 mls @ 166.667 mls/hr 01/14/20 13:00 01/14/20 13:07 Vancomycin (Pre-Docked) IVPB 166.667 mls/hr BID@0100,1300 [facility] Administration Protocol Pantoprazole Sodium 40 mg 01/10/20 10:00 01/14/20 10:44 Protonix - PO 40 mg DAILY [facility] Administration Polyethylene Glycol 17 gm 01/09/20 15:45 01/14/20 10:44 Miralax (For Daily Use) - PO 17 grams DAILY [facility] Administration Senna 1 tab 01/09/20 22:00 01/13/20 21:32 Senna - PO 1 tab HS [facility] Administration Impression 1. alicia resolved 2. bacteremia 3. htn 4. hld 5. pvd Plan - monitor off of fluids - replace potassium - avoid nephrotoxins - avoid nsaids - monitor renal function - will follow PRN
[2020-01-14 20:29] LABS: BLOOD UREA NITROGEN 11.2 mg/dL (7-18); CALCIUM 7.7 mg/dL (8.5-10.1); CREATININE 1.1 mg/dL (0.55-1.3); POTASSIUM 3.2 mmol/L (3.5-5.1)
[2020-01-14 20:34] LABS: INR 1.26 (0.83-1.09); PROTHROMBIN TIME (PATIENT) 14.9 SEC (9.7-13.0)
[2020-01-14] MEDS: ATORVASTATIN CA 40 MG TABLET (FP) PO SCH (21:23)
[2020-01-14] MEDS: SENNOSIDES 8.6MG TABLET (FP) PO SCH (21:25)
[2020-01-14] MEDS ORDERED: POTASSIUM CHLORIDE ORAL LIQUID 20 MEQ/15 ML PO ONE (22:00)
[2020-01-15] MEDS: CEFAZOLIN 2 GM/D5W 2 GM/50 ML ML IVPB SCH ×3 (01:31→17:33)
[2020-01-15] MEDS: ALBUTEROL SO4 2.5/IPRATROPIUM 0.5 INH SOL 3 ML VIAL.NEB. NEB SCH (07:50)
[2020-01-15 08:23] LABS: BASO % 0.7 % (0-2.0); EOS % 0.2 % (0-4.5); HEMOGLOBIN 10.9 GM/dL (11.7-16.9); LYMPH % 12.4 % (8-40); MCH 30.8 pg (25.7-33.7); MEAN CELL VOLUME 90.5 fl (80-96); MEAN PLT VOLUME 8.5 fl (7.5-11.1); MONO % 6.9 % (3.8-10.2); NEUT % 79.8 % (42.8-82.8); PLATELET COUNT 258 K/MM3 (134-434); RBC 3.53 M/mm3 (4.00-5.60); RDW 16.4 % (11.9-15.9); WHITE BLOOD COUNT 12.9 K/mm3 (4.0-10.0)
--- NOTE | 2020-01-15 08:51 | PN ---
Progress Note, Physician Chief Complaint: infected wound History of Present Illness: denies cp, sob, palp, dizzy - Current Medication List Current Medications: Active Medications Acetaminophen (Tylenol -) 325 mg PO Q6H PRN PRN Reason: PAIN LEVEL 6-10 Last Admin: 01/14/20 21:33 Dose: 325 mg Documented by: Albuterol/Ipratropium (Duoneb -) 1 amp NEB RQID [facility] Last Admin: 01/15/20 07:50 Dose: 1 amp Documented by: Atorvastatin Calcium (Lipitor -) 40 mg PO HS [facility] Last Admin: 01/14/20 21:23 Dose: 40 mg Documented by: Clopidogrel Bisulfate (Plavix -) 75 mg PO DAILY [facility] Last Admin: 01/14/20 10:44 Dose: 75 mg Documented by: Docusate Sodium (Colace -) 100 mg PO DAILY [facility] Last Admin: 01/14/20 10:44 Dose: 100 mg Documented by: Gabapentin (Neurontin -) 300 mg PO BID [facility] Last Admin: 01/14/20 21:25 Dose: 300 mg Documented by: Guaifenesin (Robitussin -) 10 ml PO Q6H PRN PRN Reason: COUGH Last Admin: 01/14/20 23:43 Dose: 10 ml Documented by: Cefazolin Sodium/Dextrose (Ancef 2 Gm Premixed Ivpb -) 2 gm in 50 mls @ 100 mls/hr IVPB Q8H-IV [facility] Last Admin: 01/15/20 01:31 Dose: 100 mls/hr Documented by: Vancomycin HCl (Vancomycin (Pre-Docked)) 1,000 mg in 250 mls @ 166.667 mls/hr IVPB BID@0100,1300 [facility]; Protocol Last Admin: 01/14/20 23:59 Dose: 166.667 mls/hr Documented by: Oxycodone HCl (Roxicodone -) 5 mg PO Q6H PRN PRN Reason: PAIN SCALE 6-10 Last Admin: 01/14/20 23:44 Dose: 5 mg Documented by: Pantoprazole Sodium (Protonix -) 40 mg PO DAILY [facility] Last Admin: 01/14/20 10:44 Dose: 40 mg Documented by: Polyethylene Glycol (Miralax (For Daily Use) -) 17 gm PO DAILY [facility] Last Admin: 01/14/20 10:44 Dose: 17 grams Documented by: Sandra (Senna -) 1 tab PO HS [facility] Last Admin: 01/14/20 21:25 Dose: 1 tab Documented by: - Objective Vital Signs: Vital Signs Temperature 99.0 F 01/15/20 05:46 Pulse Rate 98 H 01/15/20 05:46 Respiratory Rate 18 01/15/20 05:46 Blood Pressure 115/60 01/15/20 05:46 O2 Sat by Pulse Oximetry (%) 95 01/15/20 05:46 Constitutional: Yes: Well Nourished, No Distress, Calm Cardiovascular: Yes: Regular Rate and Rhythm, S1, S2. No: JVD, Gallop, Murmur Respiratory: Yes: Regular, CTA Bilaterally. No: Accessory Muscle Use Extremities: No: Cold Edema: Yes (1+ RLE, + LE bypass scar) Neurological: Yes: Alert, Oriented Psychiatric: No: Agitated Labs: CBC, BMP 01/15/20 05:52 INR, PTT INR 1.26 (0.83-1.09) H 01/14/20 19:45 Assessment/Plan CT chest: mild chronic lung dz with no acute pathology ecg: sr, nl intervals, no ischemic changes mibi 11/2016: no ischemia, lvef 80 echo 12/2019 nl LV function, impaired relaxation, nl RV, mild MR, tr to mild TR, mildly sclerotic AV no dysfunction tele: NSR a/p: 59 m hx htn, pad here with b/l leg pain, fever, bacteremia fever, wound infection, staph bacteremia, sepsis: - suspected infected LE vascular graft--for removal today (dr palmer) - no vegetation on echo - repeat bcx no growth, plan per ID and vasc surgery pad, history of graft thrombosis: - cont aspirin, plavix, and therapeutic lovenox per vascular htn: -not on meds at home -soft BPs here, monitor ALICIA: - likely prerenal, improved with IVF - renal following D/C TELE
[2020-01-15 08:52] LABS: ALBUMIN 1.9 g/dl (3.4-5.0); BLOOD UREA NITROGEN 10.3 mg/dL (7-18); POTASSIUM 3.7 mmol/L (3.5-5.1)
[2020-01-15 09:04] LABS: BILIRUBIN,TOTAL 0.8 mg/dL (0.2-1); TOT PROT 5.8 g/dl (6.4-8.2)
[2020-01-15 09:08] LABS: CALCIUM 7.9 mg/dL (8.5-10.1)
--- NOTE | 2020-01-15 09:47 | PN ---
Progress Note (short form) - Note Progress Note: VASCULAR SURGERY Yesterday, patient had CXR and Cx CT which identified ground glass opcities concerning for Covid-19. Patient's most recent Covid test was negative. Repeat Covid ordered. OR case canceled for today and will be rescheduled for 01/17/20 Resume Sodium controlled diet. IV ABX as per ID Above discussed with Dr. Stoner and agrees. Problem List - Problems (1) Staphylococcus aureus bacteremia with sepsis Code(s): A41.01 - SEPSIS DUE TO METHICILLIN SUSCEPTIBLE STAPHYLOCOCCUS AUREUS (2) Post-operative infection Code(s): T81.40XA - INFECTION FOLLOWING A PROCEDURE, UNSPECIFIED, INIT Qualifiers: Encounter type: initial encounter Postoperative infection type: unspecified type Qualified Code(s): T81.40XA - Infection following a procedure, unspecified, initial encounter (3) HLD (hyperlipidemia) Code(s): E78.5 - HYPERLIPIDEMIA, UNSPECIFIED Qualifiers: Hyperlipidemia type: pure hypercholesterolemia Qualified Code(s): E78.00 - Pure hypercholesterolemia, unspecified; E78.0 - Pure hypercholesterolemia
[2020-01-15] MEDS: POLYETHYLENE GLYCOL 3350 119 GM BTL PO SCH (09:54)
[2020-01-15] MEDS: DOCUSATE SODIUM 100 MG CAPSULE (FP) PO SCH (09:54)
[2020-01-15] MEDS: PANTOPRAZOLE 40 MG TABLET PO SCH (09:56)
[2020-01-15] MEDS: GABAPENTIN 300 MG CAPSULE PO SCH ×2 (09:56→21:23)
[2020-01-15] MEDS: guaiFENesin 200 MG/10 ML 10 ML UNIT-DOSE CUPS PO PRN ×3 (10:08→23:14)
[2020-01-15] MEDS: ACETAMINOPHEN 325 MG TABLET (FP) PO PRN ×3 (10:08→23:13)
[2020-01-15] MEDS: oxyCODONE HCL 5 MG TABLET PO PRN ×3 (10:09→23:12)
--- NOTE | 2020-01-15 11:27 | PN ---
Progress Note, Physician History of Present Illness: AWAKE, ALERT IN BED STILL WITH COUGH LOW GRADE TEMP, ELEVATED WBC REPEAT BC OBTAINED CT SHOWS NEW BILATERAL GROUD GLASS INFILTRATES REPEAT COVID-19 SWAB PENDING - Current Medication List Current Medications: Active Medications Acetaminophen (Tylenol -) 325 mg PO Q6H PRN PRN Reason: PAIN LEVEL 6-10 Last Admin: 01/15/20 10:08 Dose: 325 mg Documented by: Albuterol/Ipratropium (Duoneb -) 1 amp NEB RQID [facility] Last Admin: 01/15/20 07:50 Dose: 1 amp Documented by: Atorvastatin Calcium (Lipitor -) 40 mg PO HS [facility] Last Admin: 01/14/20 21:23 Dose: 40 mg Documented by: Clopidogrel Bisulfate (Plavix -) 75 mg PO DAILY [facility] Last Admin: 01/14/20 10:44 Dose: 75 mg Documented by: Docusate Sodium (Colace -) 100 mg PO DAILY [facility] Last Admin: 01/15/20 09:54 Dose: Not Given Documented by: Gabapentin (Neurontin -) 300 mg PO BID [facility] Last Admin: 01/15/20 09:56 Dose: 300 mg Documented by: Guaifenesin (Robitussin -) 10 ml PO Q6H PRN PRN Reason: COUGH Last Admin: 01/15/20 10:08 Dose: 10 ml Documented by: Cefazolin Sodium/Dextrose (Ancef 2 Gm Premixed Ivpb -) 2 gm in 50 mls @ 100 mls/hr IVPB Q8H-IV [facility] Last Admin: 01/15/20 09:57 Dose: 100 mls/hr Documented by: Vancomycin HCl (Vancomycin (Pre-Docked)) 1,000 mg in 250 mls @ 166.667 mls/hr IVPB BID@0100,1300 [facility]; Protocol Last Admin: 01/14/20 23:59 Dose: 166.667 mls/hr Documented by: Oxycodone HCl (Roxicodone -) 5 mg PO Q6H PRN PRN Reason: PAIN SCALE 6-10 Last Admin: 01/15/20 10:09 Dose: 5 mg Documented by: Pantoprazole Sodium (Protonix -) 40 mg PO DAILY [facility] Last Admin: 01/15/20 09:56 Dose: 40 mg Documented by: Polyethylene Glycol (Miralax (For Daily Use) -) 17 gm PO DAILY [facility] Last Admin: 01/15/20 09:54 Dose: Not Given Documented by: Sandra (Senna -) 1 tab PO HS [facility] Last Admin: 01/14/20 21:25 Dose: 1 tab Documented by: - Objective Vital Signs: Vital Signs Temperature 99.0 F 01/15/20 05:46 Pulse Rate 98 H 01/15/20 05:46 Respiratory Rate 18 01/15/20 05:46 Blood Pressure 115/60 01/15/20 05:46 O2 Sat by Pulse Oximetry (%) 95 01/15/20 05:46 Constitutional: Yes: No Distress Eyes: Yes: Conjunctiva Clear Cardiovascular: Yes: Regular Rate and Rhythm Respiratory: Yes: CTA Bilaterally Gastrointestinal: Yes: Normal Bowel Sounds, Soft. No: Tenderness Extremities: Yes: Other (R GROIN ERYTHEMA IMPROVED) Labs: CBC, BMP 01/15/20 05:52 01/15/20 05:52 INR, PTT INR 1.26 (0.83-1.09) H 01/14/20 19:45 Assessment/Plan STAPH BACTEREMIA SECONDARY TO SKIN SOURCE WOUND INFECTION ? INFECTED GRAFT FEVER/ LEUKOCYTOSIS ? COVID -19 THROMBOCYTOPENIA PCN ALLERGY REPEAT BC OBTAINED CONTINUE CEFAZOLIN 2GM Q8H /VANCOMYCIN CHECK REPEAT COVID-19 DISCUSSED WITH SURGERY- POSTPONE OR
--- NOTE | 2020-01-15 12:25 | PN ---
Progress Note (short form) - Note Progress Note: Events reviewed. Infected surgical wound over distal axillo-bifemoral graft with MSSA and positive blood culture for same organism. Patient has viral syndrome with CT chest suggestive of Covid pneumonitis. Exam of wound shows local skin separation, no visible graft. Surrounding tissues not fluctuant. Plan was for graft revision and resection of infected segment. Due to concern of possible Covid infection, OR postponed until patient cleared by ID.
--- NOTE | 2020-01-15 13:03 | PN ---
Progress Note (short form) - Note Progress Note: PULMONARY Breathing better. Less cough. Still with sweats. Vital Signs Period Temp Pulse Resp BP Sys/White Pulse Ox Last 24 Hr 98.2 F-100.5 F 88-105 18-22 114-120/60-68 93-98 Gen: less tachypneic Heart: RRR Lung: decreased breath sounds at the bases Abd: soft, nontender Ext: no edema CBC, BMP 01/15/20 05:52 01/15/20 05:52 Active Medications Acetaminophen (Tylenol -) 325 mg PO Q6H PRN PRN Reason: PAIN LEVEL 6-10 Last Admin: 01/15/20 10:08 Dose: 325 mg Documented by: Atorvastatin Calcium (Lipitor -) 40 mg PO HS [facility] Last Admin: 01/14/20 21:23 Dose: 40 mg Documented by: Clopidogrel Bisulfate (Plavix -) 75 mg PO DAILY [facility] Last Admin: 01/14/20 10:44 Dose: 75 mg Documented by: Docusate Sodium (Colace -) 100 mg PO DAILY [facility] Last Admin: 01/15/20 09:54 Dose: Not Given Documented by: Gabapentin (Neurontin -) 300 mg PO BID [facility] Last Admin: 01/15/20 09:56 Dose: 300 mg Documented by: Guaifenesin (Robitussin -) 10 ml PO Q6H PRN PRN Reason: COUGH Last Admin: 01/15/20 10:08 Dose: 10 ml Documented by: Cefazolin Sodium/Dextrose (Ancef 2 Gm Premixed Ivpb -) 2 gm in 50 mls @ 100 mls/hr IVPB Q8H-IV [facility] Last Admin: 01/15/20 09:57 Dose: 100 mls/hr Documented by: Vancomycin HCl (Vancomycin (Pre-Docked)) 1,000 mg in 250 mls @ 166.667 mls/hr IVPB BID@0100,1300 [facility]; Protocol Last Admin: 01/14/20 23:59 Dose: 166.667 mls/hr Documented by: Oxycodone HCl (Roxicodone -) 5 mg PO Q6H PRN PRN Reason: PAIN SCALE 6-10 Last Admin: 01/15/20 10:09 Dose: 5 mg Documented by: Pantoprazole Sodium (Protonix -) 40 mg PO DAILY [facility] Last Admin: 01/15/20 09:56 Dose: 40 mg Documented by: Polyethylene Glycol (Miralax (For Daily Use) -) 17 gm PO DAILY [facility] Last Admin: 01/15/20 09:54 Dose: Not Given Documented by: Sandra (Senna -) 1 tab PO HS [facility] Last Admin: 01/14/20 21:25 Dose: 1 tab Documented by: A/P Staph Bacteremia Wound Infection Sepsis Acute Kidney Injury Hyponatremia PAD HTN Hyperlipidemia - continue antibiotics - monitor urine output, creatinine - monitor lytes - continue anticoagulation - O2 to keep Spo2 >90%
--- NOTE | 2020-01-15 13:19 | PN ---
Progress Note, Physician Chief Complaint: AWAKE ALERT AND NAD EVENTS NOTED - Current Medication List Current Medications: Active Medications Acetaminophen (Tylenol -) 325 mg PO Q6H PRN PRN Reason: PAIN LEVEL 6-10 Last Admin: 01/15/20 10:08 Dose: 325 mg Documented by: Atorvastatin Calcium (Lipitor -) 40 mg PO HS [facility] Last Admin: 01/14/20 21:23 Dose: 40 mg Documented by: Clopidogrel Bisulfate (Plavix -) 75 mg PO DAILY [facility] Last Admin: 01/14/20 10:44 Dose: 75 mg Documented by: Docusate Sodium (Colace -) 100 mg PO DAILY [facility] Last Admin: 01/15/20 09:54 Dose: Not Given Documented by: Gabapentin (Neurontin -) 300 mg PO BID [facility] Last Admin: 01/15/20 09:56 Dose: 300 mg Documented by: Guaifenesin (Robitussin -) 10 ml PO Q6H PRN PRN Reason: COUGH Last Admin: 01/15/20 10:08 Dose: 10 ml Documented by: Cefazolin Sodium/Dextrose (Ancef 2 Gm Premixed Ivpb -) 2 gm in 50 mls @ 100 mls/hr IVPB Q8H-IV [facility] Last Admin: 01/15/20 09:57 Dose: 100 mls/hr Documented by: Vancomycin HCl (Vancomycin (Pre-Docked)) 1,000 mg in 250 mls @ 166.667 mls/hr IVPB BID@0100,1300 [facility]; Protocol Last Admin: 01/14/20 23:59 Dose: 166.667 mls/hr Documented by: Oxycodone HCl (Roxicodone -) 5 mg PO Q6H PRN PRN Reason: PAIN SCALE 6-10 Last Admin: 01/15/20 10:09 Dose: 5 mg Documented by: Pantoprazole Sodium (Protonix -) 40 mg PO DAILY [facility] Last Admin: 01/15/20 09:56 Dose: 40 mg Documented by: Polyethylene Glycol (Miralax (For Daily Use) -) 17 gm PO DAILY [facility] Last Admin: 01/15/20 09:54 Dose: Not Given Documented by: Senna (Senna -) 1 tab PO [facility] Last Admin: 01/14/20 21:25 Dose: 1 tab Documented by: - Objective Vital Signs: Vital Signs Temperature 98.2 F 01/15/20 09:00 Pulse Rate 88 01/15/20 09:00 Respiratory Rate 22 H 01/15/20 09:00 Blood Pressure 114/66 01/15/20 09:00 O2 Sat by Pulse Oximetry (%) 93 L 01/15/20 09:00 Constitutional: Yes: Mild Distress Cardiovascular: Yes: Regular Rate and Rhythm Respiratory: Yes: WNL Gastrointestinal: Yes: WNL Genitourinary: Yes: WNL Musculoskeletal: Yes: Muscle Weakness Extremities: Yes: Deformity Peripheral Pulses WNL: No Integumentary: Yes: Venous Stasis Changes Wound/Incision: Yes: Open to air Neurological: Yes: Loss of Sensation, Pre-Existing Deficit Labs: CBC, BMP 01/15/20 05:52 01/15/20 05:52 INR, PTT INR 1.26 (0.83-1.09) H 01/14/20 19:45 Problem List - Problems (1) Arterial occlusion, lower extremity Code(s): I70.209 - UNSP ATHSCL [place] ARTERIES OF EXTREMITIES, UNSP EXTREMITY (2) Neuropathic pain of foot Code(s): G57.90 - UNSPECIFIED MONONEUROPATHY OF UNSPECIFIED LOWER LIMB (3) Occlusion of artery of leg Code(s): I70.209 - UNSP ATHSCL [place] ARTERIES OF EXTREMITIES, UNSP EXTREMITY (4) Occlusion of bypass graft Code(s): T82.898A - [facility] COMPLICATION OF VASCULAR PROSTH DEV/GRFT, INIT (5) PVD (peripheral vascular disease) with claudication Code(s): I73.9 - PERIPHERAL VASCULAR DISEASE, UNSPECIFIED Assessment/Plan MEDICALLY CLEARED FOR VASCULAR SURGERY PENDING COVID TEST ON PLAVIX/AC LABS REVEIWED PAIN CONTROL OOB TO CHAIR WITH ASSIST
[2020-01-15] MEDS: CLOPIDOGREL BISULFATE 75 MG TABLET (FP) PO SCH (14:07)
[2020-01-15] MEDS: VANCOMYCIN 1 GRAM (PRE-DOCKED) 1,000 MG/250 ML BAG IVPB SCH (14:07)
[2020-01-15] MEDS: ATORVASTATIN CA 40 MG TABLET (FP) PO SCH (21:23)
[2020-01-15] MEDS: SENNOSIDES 8.6MG TABLET (FP) PO SCH (21:25)
[2020-01-16] MEDS: CEFAZOLIN 2 GM/D5W 2 GM/50 ML ML IVPB SCH ×3 (01:28→17:26)
[2020-01-16] MEDS: VANCOMYCIN 1 GRAM (PRE-DOCKED) 1,000 MG/250 ML BAG IVPB SCH ×2 (02:00→12:22)
--- NOTE | 2020-01-16 06:38 | PN ---
Progress Note, Physician Chief Complaint: TELE: NSR, QTc prolonged + Cough/ repeat COVID test as per ID Denies CP/SOB/dizziness. Vascular and ID notes reviewed. History of Present Illness: WOUND STAPH BACTEREMIA ALCIIA PAD Former SMOKER - Current Medication List Current Medications: Active Medications Acetaminophen (Tylenol -) 325 mg PO Q6H PRN PRN Reason: PAIN LEVEL 6-10 Last Admin: 01/15/20 23:13 Dose: 325 mg Documented by: Atorvastatin Calcium (Lipitor -) 40 mg PO HS [facility] Last Admin: 01/15/20 21:23 Dose: 40 mg Documented by: Clopidogrel Bisulfate (Plavix -) 75 mg PO DAILY [facility] Last Admin: 01/15/20 14:07 Dose: 75 mg Documented by: Docusate Sodium (Colace -) 100 mg PO DAILY [facility] Last Admin: 01/15/20 09:54 Dose: Not Given Documented by: Gabapentin (Neurontin -) 300 mg PO BID [facility] Last Admin: 01/15/20 21:23 Dose: 300 mg Documented by: Guaifenesin (Robitussin -) 10 ml PO Q6H PRN PRN Reason: COUGH Last Admin: 01/15/20 23:14 Dose: 10 ml Documented by: Cefazolin Sodium/Dextrose (Ancef 2 Gm Premixed Ivpb -) 2 gm in 50 mls @ 100 mls/hr IVPB Q8H-IV [facility] Last Admin: 01/16/20 01:28 Dose: 100 mls/hr Documented by: Vancomycin HCl (Vancomycin (Pre-Docked)) 1,000 mg in 250 mls @ 166.667 mls/hr IVPB BID@0100,1300 [facility]; Protocol Last Admin: 01/16/20 02:00 Dose: 166.667 mls/hr Documented by: Oxycodone HCl (Roxicodone -) 5 mg PO Q6H PRN PRN Reason: PAIN SCALE 6-10 Last Admin: 01/15/20 23:12 Dose: 5 mg Documented by: Pantoprazole Sodium (Protonix -) 40 mg PO DAILY [facility] Last Admin: 01/15/20 09:56 Dose: 40 mg Documented by: Polyethylene Glycol (Miralax (For Daily Use) -) 17 gm PO DAILY [facility] Last Admin: 01/15/20 09:54 Dose: Not Given Documented by: Senna (Senna -) 1 tab PO HS [facility] Last Admin: 01/15/20 21:25 Dose: Not Given Documented by: - Objective Vital Signs: Vital Signs Temperature 98.8 F 01/16/20 05:18 Pulse Rate 82 01/16/20 05:18 Respiratory Rate 20 01/16/20 05:18 Blood Pressure 116/70 01/16/20 05:18 O2 Sat by Pulse Oximetry (%) 93 L 01/16/20 05:18 BP trend stable Constitutional: Yes: No Distress, Calm Eyes: Yes: Conjunctiva Clear Cardiovascular: Yes: Regular Rate and Rhythm, Murmur Respiratory: Yes: Other (no wheezing or rales.) Gastrointestinal: Yes: Soft (nt) Edema: No Neurological: Yes: Alert, Oriented ...Motor Strength: WNL Labs: CBC, BMP 01/15/20 05:52 01/15/20 05:52 INR, PTT INR 1.26 (0.83-1.09) H 01/14/20 19:45 Microbiology 01/11/20 05:58 Blood - Peripheral Venous Blood Culture - Final NO GROWTH AFTER 5 DAYS INCUBATION 01/11/20 05:52 Blood - Peripheral Venous Blood Culture - Final NO GROWTH AFTER 5 DAYS INCUBATION 01/09/20 10:10 Thigh - Right Gram Stain - Final 01/09/20 10:10 Thigh - Right Wound Culture - Final Staphylococcus Aureus Finegoldia Magna 01/09/20 09:40 Blood - Peripheral Venous Blood Culture - Final Staphylococcus Aureus 01/14/20 06:45 Blood - Peripheral Venous Blood Culture - Preliminary NO GROWTH OBTAINED AFTER 48 HOURS, INCUBATION TO CONTINUE FOR 3 DAYS. 01/14/20 06:40 Blood - Peripheral Venous Blood Culture - Preliminary Presumptive Mssa (Pbp2a Neg) Laboratory Tests 01/09/20 01/09/20 01/13/20 09:40 10:10 15:50 WBC Hgb Plt Count Sodium Potassium Creatinine Stool Occult Blood Negative COVID-19 ([facility]) Not detected Not detected 01/14/20 01/15/20 01/15/20 16:00 05:52 05:52 WBC 12.9 H Hgb 10.9 L Plt Count 258 D Sodium 135 L Potassium 3.7 Creatinine 1.0 Stool Occult Blood COVID-19 ([facility]) Not detected - ....Imaging EKG: Image Reviewed Assessment/Plan DATA: mibi 11/2016: no ischemia, lvef 80 echo 12/2019 nl LV function, impaired relaxation, nl RV, mild MR, tr to mild TR, mildly sclerotic AV no dysfunction IMP/PLAN: a/p: 60 m hx htn, pad here with b/l leg pain, fever, bacteremia fever, wound infection, staph bacteremia, sepsis: - suspected infected LE vascular graft--for removal (dr palmer) as per Vascular Surgery - no vegetation on echo - positive blood cultures: as per ID and vasc surgery pad, history of graft thrombosis: - cont plavix, and other AC as per vascular htn: -not on meds at home -soft BPs here, monitor ALICIA: - likely prerenal, improved with IVF - renal following Prolonged QT on tele: -CONTINUE TELE -Check 12 lead ECG today to confirm -Check K+/Mg2+ (keep K> 4 and Mg > 2) -Avoid/ minimize QT prolonging drugs, will d/w PMD to try and reduce opiates for pain control or use alternative
[2020-01-16] MEDS: PANTOPRAZOLE 40 MG TABLET PO SCH (09:02)
[2020-01-16] MEDS: CLOPIDOGREL BISULFATE 75 MG TABLET (FP) PO SCH (09:02)
[2020-01-16] MEDS: GABAPENTIN 300 MG CAPSULE PO SCH ×2 (09:02→23:02)
[2020-01-16] MEDS: POLYETHYLENE GLYCOL 3350 119 GM BTL PO SCH (09:03)
[2020-01-16] MEDS: DOCUSATE SODIUM 100 MG CAPSULE (FP) PO SCH (09:03)
[2020-01-16] MEDS ORDERED: HYDROmorphone HCL 2 MG TABLET PO PRN (11:34)
[2020-01-16] MEDS ORDERED: LOPERAMIDE HCL 2 MG CAPSULE PO PRN (11:45)
[2020-01-16] MEDS ORDERED: guaiFENesin/CODEINE 5 ML UNIT-DOSE CUPS PO PRN (11:47)
--- NOTE | 2020-01-16 11:56 | PN ---
Progress Note, Physician Chief Complaint: C/O NON-BLOODY DIARRHEA NO FEVER +COUGH DRY +MSSA BLOOD CULTURE - Current Medication List Current Medications: Active Medications Acetaminophen (Tylenol -) 325 mg PO Q6H PRN PRN Reason: PAIN LEVEL 6-10 Last Admin: 01/15/20 23:13 Dose: 325 mg Documented by: Atorvastatin Calcium (Lipitor -) 40 mg PO HS [facility] Last Admin: 01/15/20 21:23 Dose: 40 mg Documented by: Clopidogrel Bisulfate (Plavix -) 75 mg PO DAILY [facility] Last Admin: 01/16/20 09:02 Dose: 75 mg Documented by: Docusate Sodium (Colace -) 100 mg PO DAILY [facility] Last Admin: 01/16/20 09:03 Dose: Not Given Documented by: Gabapentin (Neurontin -) 300 mg PO BID [facility] Last Admin: 01/16/20 09:02 Dose: 300 mg Documented by: Guaifenesin/Codeine Phosphate (Robitussin Ac -) 5 ml PO TID PRN PRN Reason: COUGH Hydromorphone HCl (Dilaudid -) 2 mg PO Q6H PRN PRN Reason: PAIN LEVEL 6-10 Cefazolin Sodium/Dextrose (Ancef 2 Gm Premixed Ivpb -) 2 gm in 50 mls @ 100 mls/hr IVPB Q8H-IV [facility] Last Admin: 01/16/20 09:02 Dose: 100 mls/hr Documented by: Vancomycin HCl (Vancomycin (Pre-Docked)) 1,000 mg in 250 mls @ 166.667 mls/hr IVPB BID@0100,1300 [facility]; Protocol Last Admin: 01/16/20 02:00 Dose: 166.667 mls/hr Documented by: Loperamide HCl (Imodium -) 4 mg PO Q6H PRN PRN Reason: DIARRHEA Metronidazole (Flagyl -) 500 mg PO TID [facility] Pantoprazole Sodium (Protonix -) 40 mg PO DAILY [facility] Last Admin: 01/16/20 09:02 Dose: 40 mg Documented by: Polyethylene Glycol (Miralax (For Daily Use) -) 17 gm PO DAILY [facility] Last Admin: 01/16/20 09:03 Dose: Not Given Documented by: Senna (Senna -) 1 tab PO [facility] Last Admin: 01/15/20 21:25 Dose: Not Given Documented by: - Objective Vital Signs: Vital Signs Temperature 98.2 F 01/16/20 09:00 Pulse Rate 92 H 01/16/20 09:00 Respiratory Rate 22 H 01/16/20 09:00 Blood Pressure 110/63 01/16/20 09:00 O2 Sat by Pulse Oximetry (%) 92 L 01/16/20 09:00 Constitutional: Yes: Mild Distress Cardiovascular: Yes: Pulse Irregular Respiratory: Yes: Cough, Diminished, Wheezes Gastrointestinal: Yes: Soft Genitourinary: Yes: Incontinence Musculoskeletal: Yes: Muscle Weakness Edema: No Peripheral Pulses WNL: No Integumentary: Yes: Other Wound/Incision: Yes: Open to air, Other ...Motor Strength: LLE, RLE Psychiatric: Yes: Other Labs: CBC, BMP 01/15/20 05:52 01/15/20 05:52 INR, PTT INR 1.26 (0.83-1.09) H 01/14/20 19:45 Problem List - Problems (1) Arterial occlusion, lower extremity Code(s): I70.209 - UNSP ATHSCL [place] ARTERIES OF EXTREMITIES, UNSP EXTREMITY (2) Neuropathic pain of foot Code(s): G57.90 - UNSPECIFIED MONONEUROPATHY OF UNSPECIFIED LOWER LIMB (3) Occlusion of artery of leg Code(s): I70.209 - UNSP ATHSCL [place] ARTERIES OF EXTREMITIES, UNSP EXTREMITY (4) Occlusion of bypass graft Code(s): T82.898A - [facility] COMPLICATION OF VASCULAR PROSTH DEV/GRFT, INIT (5) PVD (peripheral vascular disease) with claudication Code(s): I73.9 - PERIPHERAL VASCULAR DISEASE, UNSPECIFIED Assessment/Plan POSITIVE MSSA BLOOD CULTURE D/W ID DR VALENCIA ON VANCO/CEFAZOLIN FOR STAPH ADDED FLAGYL PO AND IMMODIUM CXR REPEAT ROBITUSSIN AC WILL D/W DR LEUNG ABOUT CONTINUING WITH VASCULAR SURGERY LOWER \EXTREMITY WITH POSITIVE BLOOD CX PAIN CONTROL CHANGED TO DILAUDID BC OF QT PROLONGATION
--- NOTE | 2020-01-16 12:09 | PN ---
Progress Note, Physician History of Present Illness: BC (01/13) + AWAKE, ALERT IN BED STILL WITH COUGH AFEBRILE, ELEVATED WBC CT SHOWS NEW BILATERAL GROUD GLASS INFILTRATES REPEAT COVID-19 (-) - Current Medication List Current Medications: Active Medications Acetaminophen (Tylenol -) 325 mg PO Q6H PRN PRN Reason: PAIN LEVEL 6-10 Last Admin: 01/15/20 23:13 Dose: 325 mg Documented by: Atorvastatin Calcium (Lipitor -) [address] [facility] Last Admin: 01/15/20 21:23 Dose: 40 mg Documented by: Clopidogrel Bisulfate (Plavix -) 75 mg PO DAILY [facility] Last Admin: 01/16/20 09:02 Dose: 75 mg Documented by: Docusate Sodium (Colace -) 100 mg PO DAILY [facility] Last Admin: 01/16/20 09:03 Dose: Not Given Documented by: Gabapentin (Neurontin -) 300 mg PO BID [facility] Last Admin: 01/16/20 09:02 Dose: 300 mg Documented by: Guaifenesin/Codeine Phosphate (Robitussin Ac -) 5 ml PO TID PRN PRN Reason: COUGH Hydromorphone HCl (Dilaudid -) 2 mg PO Q6H PRN PRN Reason: PAIN LEVEL 6-10 Cefazolin Sodium/Dextrose (Ancef 2 Gm Premixed Ivpb -) 2 gm in 50 mls @ 100 mls/hr IVPB Q8H-IV [facility] Last Admin: 01/16/20 09:02 Dose: 100 mls/hr Documented by: Vancomycin HCl (Vancomycin (Pre-Docked)) 1,000 mg in 250 mls @ 166.667 mls/hr IVPB BID@0100,1300 [facility]; Protocol Last Admin: 01/16/20 02:00 Dose: 166.667 mls/hr Documented by: Loperamide HCl (Imodium -) 4 mg PO Q6H PRN PRN Reason: DIARRHEA Metronidazole (Flagyl -) 500 mg PO TID [facility] Pantoprazole Sodium (Protonix -) 40 mg PO DAILY [facility] Last Admin: 01/16/20 09:02 Dose: 40 mg Documented by: Polyethylene Glycol (Miralax (For Daily Use) -) 17 gm PO DAILY [facility] Last Admin: 01/16/20 09:03 Dose: Not Given Documented by: Senna (Senna -) [address] [facility] Last Admin: 01/15/20 21:25 Dose: Not Given Documented by: - Objective Vital Signs: Vital Signs Temperature 98.2 F 01/16/20 09:00 Pulse Rate 92 H 01/16/20 09:00 Respiratory Rate 22 H 01/16/20 09:00 Blood Pressure 110/63 01/16/20 09:00 O2 Sat by Pulse Oximetry (%) 92 L 01/16/20 09:00 Constitutional: Yes: No Distress Eyes: Yes: Conjunctiva Clear Cardiovascular: Yes: Regular Rate and Rhythm, S1, S2 Respiratory: Yes: CTA Bilaterally Gastrointestinal: Yes: Normal Bowel Sounds, Soft, Abdomen, Obese. No: Tenderness Edema: Yes Edema: LLE: 1+, RLE: 1+ Integumentary: Yes: Other (DECREASED ERYTHEMA R GROIN) Labs: CBC, BMP 01/15/20 05:52 01/15/20 05:52 INR, PTT INR 1.26 (0.83-1.09) H 01/14/20 19:45 Assessment/Plan STAPH BACTEREMIA SECONDARY TO SKIN SOURCE WOUND INFECTION ? INFECTED GRAFT FEVER/ LEUKOCYTOSIS COVID -19 NEGATIVE THROMBOCYTOPENIA PCN ALLERGY REPEAT BC 01/13 + CONTINUE CEFAZOLIN 2GM Q8H /VANCOMYCIN VANCOMYCIN LEVEL
--- NOTE | 2020-01-16 12:44 | PN ---
Progress Note (short form) - Note Progress Note: PULMONARY Breathing better. Less cough. Still with sweats. Vital Signs Period Temp Pulse Resp BP Sys/White Pulse Ox Last 24 Hr 97.6 F-98.8 F 82-92 18-22 100-131/63-71 90-98 Gen: less tachypneic Heart: RRR Lung: decreased breath sounds at the bases Abd: soft, nontender Ext: no edema CBC, BMP 01/15/20 05:52 Active Medications Acetaminophen (Tylenol -) 325 mg PO Q6H PRN PRN Reason: PAIN LEVEL 6-10 Last Admin: 01/15/20 23:13 Dose: 325 mg Documented by: Atorvastatin Calcium (Lipitor -) 40 mg PO HS [facility] Last Admin: 01/15/20 21:23 Dose: 40 mg Documented by: Clopidogrel Bisulfate (Plavix -) 75 mg PO DAILY [facility] Last Admin: 01/16/20 09:02 Dose: 75 mg Documented by: Docusate Sodium (Colace -) 100 mg PO DAILY [facility] Last Admin: 01/16/20 09:03 Dose: Not Given Documented by: Gabapentin (Neurontin -) 300 mg PO BID [facility] Last Admin: 01/16/20 09:02 Dose: 300 mg Documented by: Guaifenesin/Codeine Phosphate (Robitussin Ac -) 5 ml PO TID PRN PRN Reason: COUGH Hydromorphone HCl (Dilaudid -) 2 mg PO Q6H PRN PRN Reason: PAIN LEVEL 6-10 Cefazolin Sodium/Dextrose (Ancef 2 Gm Premixed Ivpb -) 2 gm in 50 mls @ 100 mls/hr IVPB Q8H-IV [facility] Last Admin: 01/16/20 09:02 Dose: 100 mls/hr Documented by: Vancomycin HCl (Vancomycin (Pre-Docked)) 1,000 mg in 250 mls @ 166.667 mls/hr IVPB BID@0100,1300 [facility]; Protocol Last Admin: 01/16/20 12:22 Dose: 166.667 mls/hr Documented by: Loperamide HCl (Imodium -) 4 mg PO Q6H PRN PRN Reason: DIARRHEA Metronidazole (Flagyl -) 500 mg PO TID [facility] Pantoprazole Sodium (Protonix -) 40 mg PO DAILY [facility] Last Admin: 01/16/20 09:02 Dose: 40 mg Documented by: Polyethylene Glycol (Miralax (For Daily Use) -) 17 gm PO DAILY [facility] Last Admin: 01/16/20 09:03 Dose: Not Given Documented by: Sencharo (Senna -) 1 tab PO HS [facility] Last Admin: 01/15/20 21:25 Dose: Not Given Documented by: A/P Staph Bacteremia Wound Infection Sepsis Acute Kidney Injury Hyponatremia PAD HTN Hyperlipidemia - continue antibiotics - monitor urine output, creatinine - monitor lytes - continue anticoagulation - O2 to keep Spo2 >90% - for OR
[2020-01-16 13:14] LABS: BLOOD UREA NITROGEN 12.1 mg/dL (7-18); CALCIUM 8.1 mg/dL (8.5-10.1); CREATININE 0.8 mg/dL (0.55-1.3); MAGNESIUM 2.2 mg/dL (1.8-2.4); POTASSIUM 3.2 mmol/L (3.5-5.1)
[2020-01-16] MEDS ORDERED: PT OWN MED DRAWER 7, Y5N ONE ×3 (14:26→22:59)
[2020-01-16] MEDS: metroNIDAZOLE 500 MG TABLET PO SCH ×2 (14:30→23:02)
--- NOTE | 2020-01-16 14:59 | PN ---
Progress Note (short form) - Note Progress Note: Complains of diarrhea Afeb Wound with seopurulent drainage. Blood culture positive for GPC 01/13 Covid swab negative x 3 OR tomorrow
[2020-01-16] MEDS: POTASSIUM CHLORIDE TABS 20 MEQ TABLET.ER (FP) PO SCH (18:23)
[2020-01-16] MEDS: ATORVASTATIN CA 40 MG TABLET (FP) PO SCH (23:02)
[2020-01-16] MEDS: SENNOSIDES 8.6MG TABLET (FP) PO SCH (23:02)
[2020-01-17] MEDS: VANCOMYCIN 1 GRAM (PRE-DOCKED) 1,000 MG/250 ML BAG IVPB SCH ×2 (01:47→19:20)
[2020-01-17] MEDS: CEFAZOLIN 2 GM/D5W 2 GM/50 ML ML IVPB SCH ×2 (02:00→08:49)
[2020-01-17] MEDS ORDERED: PT OWN MED DRAWER 7, Y5N ONE ×2 (06:37→08:36)
[2020-01-17] MEDS: metroNIDAZOLE 500 MG TABLET PO SCH ×2 (06:46→21:53)
[2020-01-17 07:48] LABS: HEMATOCRIT 32.7 % (35.4-49); HEMOGLOBIN 10.8 GM/dL (11.7-16.9); MCH 29.6 pg (25.7-33.7); MEAN CELL VOLUME 89.8 fl (80-96); MEAN PLT VOLUME 7.9 fl (7.5-11.1); PLATELET COUNT 349 K/MM3 (134-434); RBC 3.64 M/mm3 (4.00-5.60); RDW 16.2 % (11.9-15.9); WHITE BLOOD COUNT 12.8 K/mm3 (4.0-10.0)
[2020-01-17 08:15] LABS: POTASSIUM 3.3 mmol/L (3.5-5.1)
[2020-01-17 08:24] LABS: ALBUMIN 1.8 g/dl (3.4-5.0); BILIRUBIN,TOTAL 0.6 mg/dL (0.2-1); BLOOD UREA NITROGEN 9.8 mg/dL (7-18); CALCIUM 7.9 mg/dL (8.5-10.1); CREATININE 0.9 mg/dL (0.55-1.3); MAGNESIUM 2.2 mg/dL (1.8-2.4); TOT PROT 5.9 g/dl (6.4-8.2)
[2020-01-17] MEDS: PANTOPRAZOLE 40 MG TABLET PO SCH (08:48)
[2020-01-17] MEDS: GABAPENTIN 300 MG CAPSULE PO SCH ×2 (08:48→21:54)
[2020-01-17] MEDS: POTASSIUM CHLORIDE TABS 20 MEQ TABLET.ER (FP) PO SCH (08:48)
--- NOTE | 2020-01-17 09:02 | PN ---
Progress Note, Physician - Current Medication List Current Medications: Active Medications Acetaminophen (Tylenol -) 325 mg PO Q6H PRN PRN Reason: PAIN LEVEL 6-10 Last Admin: 01/15/20 23:13 Dose: 325 mg Documented by: Atorvastatin Calcium (Lipitor -) 40 mg PO HS [facility] Last Admin: 01/16/20 23:02 Dose: 40 mg Documented by: Clopidogrel Bisulfate (Plavix -) 75 mg PO DAILY [facility] Last Admin: 01/16/20 09:02 Dose: 75 mg Documented by: Docusate Sodium (Colace -) 100 mg PO DAILY [facility] Last Admin: 01/16/20 09:03 Dose: Not Given Documented by: Gabapentin (Neurontin -) 300 mg PO BID [facility] Last Admin: 01/17/20 08:48 Dose: 300 mg Documented by: Guaifenesin/Codeine Phosphate (Robitussin Ac -) 5 ml PO TID PRN PRN Reason: COUGH Hydromorphone HCl (Dilaudid -) 2 mg PO Q6H PRN PRN Reason: PAIN LEVEL 6-10 Cefazolin Sodium/Dextrose (Ancef 2 Gm Premixed Ivpb -) 2 gm in 50 mls @ 100 mls/hr IVPB Q8H-IV [facility] Last Admin: 01/17/20 08:49 Dose: 100 mls/hr Documented by: Vancomycin HCl (Vancomycin (Pre-Docked)) 1,000 mg in 250 mls @ 166.667 mls/hr IVPB BID@0100,1300 [facility]; Protocol Last Admin: 01/17/20 01:47 Dose: 166.667 mls/hr Documented by: Loperamide HCl (Imodium -) 4 mg PO Q6H PRN PRN Reason: DIARRHEA Last Admin: 01/16/20 23:02 Dose: 4 mg Documented by: Metronidazole (Flagyl -) 500 mg PO TID [facility] Last Admin: 01/17/20 06:46 Dose: 500 mg Documented by: Pantoprazole Sodium (Protonix -) 40 mg PO DAILY [facility] Last Admin: 01/17/20 08:48 Dose: 40 mg Documented by: Polyethylene Glycol (Miralax (For Daily Use) -) 17 gm PO DAILY [facility] Last Admin: 01/16/20 09:03 Dose: Not Given Documented by: Potassium Chloride (K-Dur -) 40 meq PO DAILY [facility] Last Admin: 01/17/20 08:48 Dose: 40 meq Documented by: Sandra (Senna -) 1 tab PO HS [facility] Last Admin: 01/16/20 23:02 Dose: Not Given Documented by: - Objective Vital Signs: Vital Signs Temperature 99.1 F 01/17/20 01:52 Pulse Rate 88 01/17/20 05:00 Respiratory Rate 18 01/17/20 05:00 Blood Pressure 112/65 01/17/20 05:00 O2 Sat by Pulse Oximetry (%) 90 L 01/16/20 18:17 Cardiovascular: Yes: Regular Rate and Rhythm Respiratory: Yes: On Nasal O2, Rhonchi Gastrointestinal: Yes: Normal Bowel Sounds, Soft Wound/Incision: Yes: Draining Labs: CBC, BMP 01/17/20 05:53 01/17/20 05:53 INR, PTT INR 1.26 (0.83-1.09) H 01/14/20 19:45 Problem List - Problems (1) Sepsis Code(s): A41.9 - SEPSIS, UNSPECIFIED ORGANISM Qualifiers: Sepsis type: sepsis due to unspecified organism Sepsis acute organ dysfunction status: with acute organ dysfunction Severe sepsis acute organ dysfunction type: unspecified Severe sepsis shock status: unspecified Qualified Code(s): A41.9 - Sepsis, unspecified organism; R65.20 - Severe sepsis without septic shock (2) Arterial occlusion, lower extremity Code(s): I70.209 - UNSP ATHSCL ONEIDA ARTERIES OF EXTREMITIES, UNSP EXTREMITY (3) ALICIA (acute kidney injury) Code(s): N17.9 - ACUTE KIDNEY FAILURE, UNSPECIFIED (4) Cough Code(s): R05 - COUGH (5) HLD (hyperlipidemia) Code(s): E78.5 - HYPERLIPIDEMIA, UNSPECIFIED Qualifiers: Hyperlipidemia type: pure hypercholesterolemia Qualified Code(s): E78.00 - Pure hypercholesterolemia, unspecified; E78.0 - Pure hypercholesterolemia Assessment/Plan - Problems (1) ALICIA (acute kidney injury) Assessment/Plan: -resolved -Monitor trend -Continue IVF for now Problems reviewed: Yes Code(s): N17.9 - ACUTE KIDNEY FAILURE, UNSPECIFIED (2) Post-operative infection Assessment/Plan: -ID consult on board -IV Vanco -Cultures: Microbiology 01/14/20 06:40 Blood - Peripheral Venous Blood Culture - Final Staphylococcus Aureus 01/14/20 06:45 Blood - Peripheral Venous Blood Culture - Preliminary NO GROWTH OBTAINED AFTER 72 HOURS, INCUBATION TO CONTINUE FOR 2 DAYS. 01/11/20 05:58 Blood - Peripheral Venous Blood Culture - Final NO GROWTH AFTER 5 DAYS INCUBATION 01/11/20 05:52 Blood - Peripheral Venous Blood Culture - Final NO GROWTH AFTER 5 DAYS INCUBATION 01/09/20 10:10 Thigh - Right Gram Stain - Final 01/09/20 10:10 Thigh - Right Wound Culture - Final Staphylococcus Aureus Finegoldia Magna 01/09/20 09:40 Blood - Peripheral Venous Blood Culture - Final Staphylococcus Latex Coag Pos 01/09/20 09:40 Blood - Peripheral Venous Blood Culture - Final Staphylococcus Aureus 01/09/20 11:50 Urine - Urine Clean Catch Urine Culture - Final NO GROWTH OBTAINED -Vascular surgery on board -Afebrile -leukocytosis improved Problems reviewed: Yes Code(s): T81.40XA - INFECTION FOLLOWING A PROCEDURE, UNSPECIFIED, INIT Qualifiers: Encounter type: initial encounter Postoperative infection type: unspecified type Qualified Code(s): T81.40XA - Infection following a procedure, unspeci fied, initial encounter (3) Staphylococcus aureus bacteremia with sepsis Assessment/Plan: as above Problems reviewed: Yes Code(s): A41.01 - SEPSIS DUE TO METHICILLIN SUSCEPTIBLE STAPHYLOCOCCUS AUREUS (4) Arterial occlusion, lower extremity Problems reviewed: Yes Code(s): I70.209 - UNSP ATHSCL ONE[place] ARTERIES OF EXTREMITIES, UNSP EXTREMITY (5) HLD (hyperlipidemia) Assessment/Plan: -HDL at 9 -LDL at 35 -Decrease atorvastatin to 40 mg po HS Problems reviewed: Yes Code(s): E78.5 - HYPERLIPIDEMIA, UNSPECIFIED Qualifiers: Hyperlipidemia type: pure hypercholesterolemia Qualified Code(s): E78.00 - Pure hypercholesterolemia, unspecified; E78.0 - Pure hypercholesterolemia (6) Abnormal CxR Assessment/Plan: -Covid Negative x 3 -Pulm and ID on board
--- NOTE | 2020-01-17 09:59 | EKG ---
Test Reason : Blood Pressure : / mmHG Vent. Rate : 084 BPM Atrial Rate : 084 BPM P-R Int : 128 ms QRS Dur : 098 ms QT Int : 384 ms P-R-T Axes : 065 049 019 degrees QTc Int : 453 ms Suspect unspecified pacemaker failure NORMAL SINUS RHYTHM NONSPECIFIC T WAVE ABNORMALITY ABNORMAL ECG WHEN COMPARED WITH ECG OF 09-JAN-2020 09:38, NO SIGNIFICANT CHANGE WAS FOUND Confirmed by Stefanie Poe ([id number]) on 01/17/2020 9:58:49 AM Referred By: NASIR GILLESPIE [facility] Confirmed By:Stefanie Poe
--- NOTE | 2020-01-17 11:35 | PN ---
Progress Note (short form) - Note Progress Note: cc b/l leg pain s: no chest pain, palps, dizziness, dyspnea Current Medications Generic Name Dose Route Start Last Admin Trade Name Freq PRN Reason Stop Dose Admin Acetaminophen 325 mg 01/09/20 15:45 01/15/20 23:13 Tylenol - PO 325 mg Q6H PRN Administration PAIN LEVEL 6-10 Atorvastatin Calcium 40 mg 01/11/20 22:00 01/16/20 23:02 Lipitor - PO 40 mg HS [facility] Administration Clopidogrel Bisulfate 75 mg 01/10/20 10:00 01/16/20 09:02 Plavix - PO 75 mg DAILY [facility] Administration Docusate Sodium 100 mg 01/09/20 15:45 01/16/20 09:03 Colace - PO Not Given DAILY [facility] Gabapentin 300 mg 01/09/20 22:00 01/17/20 08:48 Neurontin - PO 300 mg BID [facility] Administration Guaifenesin/Codeine Phosphate 5 ml 01/16/20 11:47 Robitussin Ac - PO TID PRN COUGH Hydromorphone HCl 2 mg 01/16/20 11:34 Dilaudid - PO Q6H PRN PAIN LEVEL 6-10 Cefazolin Sodium/Dextrose 2 gm in 50 mls @ 100 mls/hr 01/13/20 14:00 01/17/20 08:49 Ancef 2 Gm Premixed Ivpb - IVPB 100 mls/hr Q8H-IV [facility] Administration Vancomycin HCl 1,000 mg in 250 mls @ 166.667 mls/hr 01/14/20 13:00 01/17/20 01:47 Vancomycin (Pre-Docked) IVPB 166.667 mls/hr BID@0100,1300 [facility] Administration Protocol Loperamide HCl 4 mg 01/16/20 11:45 01/16/20 23:02 Imodium - PO 4 mg Q6H PRN Administration DIARRHEA Metronidazole 500 mg 01/16/20 14:00 01/17/20 06:46 Flagyl - PO 500 mg TID [facility] Administration Pantoprazole Sodium 40 mg 01/10/20 10:00 01/17/20 08:48 Protonix - PO 40 mg DAILY [facility] Administration Polyethylene Glycol 17 gm 01/09/20 15:45 01/16/20 09:03 Miralax (For Daily Use) - PO Not Given DAILY [facility] Potassium Chloride 40 meq 01/16/20 18:15 01/17/20 08:48 K-Dur - PO 40 meq DAILY [facility] Administration Senna 1 tab 01/09/20 22:00 01/16/20 23:02 Senna - PO Not Given HS [facility] Vital Signs Period Temp Pulse Resp BP Sys/White Pulse Ox Last 24 Hr 97.9 F-99.1 F 88-91 18-20 106-124/60-65 90-92 nad no jvd rrr s1s2 no mrg cta bl nl eff aaox3 no le edema no jaundice diaphoresis abd nt nd pos bs CBC, BMP 01/17/20 05:53 01/17/20 05:53 CT chest: mild chronic lung dz with no acute pathology ecg: sr, nl intervals, no ischemic changes mibi 11/2016: no ischemia, lvef 80 echo 12/2019 nl LV function, impaired relaxation, nl RV, mild MR, tr to mild TR, mildly sclerotic AV no dysfunction tele: sr a/p: 59 m hx htn, pad here with b/l leg pain, fever, bacteremia fever, wound infection, staph bacteremia, sepsis: - suspected infected LE vascular graft--for removal (dr palmer) as per Vascular Surgery - no vegetation on echo - positive blood cultures: as per ID and vasc surgery pad, history of graft thrombosis: - cont plavix, and other AC as per vascular htn: -not on meds at home -soft BPs here, monitor ALICIA: - likely prerenal, improved with IVF - renal following Prolonged QT on tele: -stable -Check K+/Mg2+ (keep K> 4 and Mg > 2) -Avoid/ minimize QT prolonging drugs
[2020-01-17] MEDS ORDERED: PAPAVERINE HCL 30 MG/1 ML 10 ML VIAL NR ONE (12:09)
[2020-01-17] MEDS ORDERED: HEPARIN NA (PORCINE) 5,000 UNITS/ML 1ML VIAL ONE (12:10)
[2020-01-17] MEDS ORDERED: POVIDONE-IODINE OINTMENT 10% - 28.4 GM TUBE ONE (12:10)
[2020-01-17] MEDS ORDERED: ROCURONIUM BROMIDE 100 MG/10 ML VIAL ONE ×2 (12:47→14:06)
[2020-01-17] MEDS ORDERED: MIDAZOLAM HCL 2 MG/2 ML SINGLE DOSE VIAL ONE (12:47)
[2020-01-17] MEDS ORDERED: PROPOFOL 20 ML ONE (12:48)
[2020-01-17] MEDS ORDERED: ceFAZolin SODIUM 1 GM VIAL IVPB ONE (13:43)
[2020-01-17] MEDS ORDERED: HEPARIN NA (PORCINE) 5,000 UNITS/ML 1ML VIAL IV ONE (13:45)
[2020-01-17] MEDS ORDERED: BACITRACIN 50,000 UNITS VIAL NR ONE (13:45)
[2020-01-17] MEDS ORDERED: THROMBIN (BOVINE) 5,000 UNIT VIAL TP ONE ×2 (14:27→14:35)
--- NOTE | 2020-01-17 15:33 | PN ---
Progress Note (short form) - Note Progress Note: Breathing feels overall better. Less cough. Still with leg discomfort. Intake & Output 01/14/20 01/15/20 01/16/20 01/17/20 23:59 23:59 23:59 23:59 Intake Total 60 900 1300 450 Output Total 1200 1100 1600 300 Balance -1140 -200 -300 150 Last Vital Signs Temp Pulse Resp BP Pulse Ox 98.2 F 91 H 18 122/65 92 L 01/17/20 09:00 01/17/20 09:00 01/17/20 09:00 01/17/20 09:00 01/17/20 09:00 Active Medications Acetaminophen (Tylenol -) 325 mg PO Q6H PRN PRN Reason: PAIN LEVEL 6-10 Last Admin: 01/15/20 23:13 Dose: 325 mg Documented by: Atorvastatin Calcium (Lipitor -) 40 mg PO HS [facility] Last Admin: 01/16/20 23:02 Dose: 40 mg Documented by: Clopidogrel Bisulfate (Plavix -) 75 mg PO DAILY [facility] Last Admin: 01/16/20 09:02 Dose: 75 mg Documented by: Docusate Sodium (Colace -) 100 mg PO DAILY [facility] Last Admin: 01/16/20 09:03 Dose: Not Given Documented by: Gabapentin (Neurontin -) 300 mg PO BID [facility] Last Admin: 01/17/20 08:48 Dose: 300 mg Documented by: Guaifenesin/Codeine Phosphate (Robitussin Ac -) 5 ml PO TID PRN PRN Reason: COUGH Hydromorphone HCl (Dilaudid -) 2 mg PO Q6H PRN PRN Reason: PAIN LEVEL 6-10 Cefazolin Sodium/Dextrose (Ancef 2 Gm Premixed Ivpb -) 2 gm in 50 mls @ 100 mls/hr IVPB Q8H-IV [facility] Last Admin: 01/17/20 08:49 Dose: 100 mls/hr Documented by: Vancomycin HCl (Vancomycin (Pre-Docked)) 1,000 mg in 250 mls @ 166.667 mls/hr IVPB BID@0100,1300 [facility]; Protocol Last Admin: 01/17/20 01:47 Dose: 166.667 mls/hr Documented by: Loperamide HCl (Imodium -) 4 mg PO Q6H PRN PRN Reason: DIARRHEA Last Admin: 01/16/20 23:02 Dose: 4 mg Documented by: Metronidazole (Flagyl -) 500 mg PO TID [facility] Last Admin: 01/17/20 06:46 Dose: 500 mg Documented by: Pantoprazole Sodium (Protonix -) 40 mg PO DAILY [facility] Last Admin: 01/17/20 08:48 Dose: 40 mg Documented by: Polyethylene Glycol (Miralax (For Daily Use) -) 17 gm PO DAILY [facility] Last Admin: 01/16/20 09:03 Dose: Not Given Documented by: Potassium Chloride (K-Dur -) 40 meq PO DAILY [facility] Last Admin: 01/17/20 08:48 Dose: 40 meq Documented by: Senna (Senna -) 1 tab PO HS [facility] Last Admin: 01/16/20 23:02 Dose: Not Given Documented by: Gen: NAD Heart: RRR Lung: decreased breath sounds at the bases Abd: soft, nontender Ext: no edema Laboratory Results - last 24 hr 01/14/20 01/17/20 01/17/20 12:45 05:53 05:53 WBC 12.8 H RBC 3.64 L Hgb 10.8 L Hct 32.7 L MCV 89.8 MCH 29.6 MCHC 33.0 RDW 16.2 H Plt Count 349 D MPV 7.9 Sodium 136 Potassium 3.3 L Chloride 98 Carbon Dioxide 27 Anion Gap 11 BUN 9.8 Creatinine 0.9 Est GFR (CKD-EPI)AfAm 107.22 Est GFR (CKD-EPI)NonAf 92.51 Random Glucose 111 H Calcium 7.9 L Magnesium 2.2 Total Bilirubin 0.6 AST 31 ALT 16 Alkaline Phosphatase 163 H Total Protein 5.9 L Albumin 1.8 L Blood Type A POSITIVE Antibody Screen Negative Crossmatch See Detail 01/17/20 13:15 WBC RBC Hgb Hct MCV MCH MCHC RDW Plt Count MPV Sodium Potassium Chloride Carbon Dioxide Anion Gap BUN Creatinine Est GFR (CKD-EPI)AfAm Est GFR (CKD-EPI)NonAf Random Glucose Calcium Magnesium Total Bilirubin AST ALT Alkaline Phosphatase Total Protein Albumin Blood Type A POSITIVE Antibody Screen Negative Crossmatch See Detail A/P Staph Bacteremia Wound Infection Sepsis Acute Kidney Injury Hyponatremia PAD HTN Hyperlipidemia - continue antibiotics - monitor urine output, creatinine - monitor lytes - continue anticoagulation - O2 to keep Spo2 >90% - No Pulmonary contraindication for OR/anesthesia Dr Felipe
[2020-01-17] MEDS ORDERED: POVIDONE-IODINE OINTMENT 10% - 28.4 GM TUBE TP ONE (17:00)
[2020-01-17] MEDS ORDERED: fentaNYL CITRATE 250 MCG/5 ML VIAL ONE (17:09)
[2020-01-17] MEDS ORDERED: NEOSTIGMINE METHYLSULFATE 0.5 MG/ML - 10 ML MDV ONE (17:20)
[2020-01-17] MEDS ORDERED: GLYCOPYRROLATE 0.2 MG/1 ML VIAL ONE ×2 (17:20→17:21)
--- NOTE | 2020-01-17 17:40 | OP ---
Operative Note - Note: Operative Date: 01/17/20 Pre-Operative Diagnosis: Prosthetic graft infection Operation: Redo axillo-bifemoral bypass. Excision infected graft. Findings: Purulent material around prosthetic graft at site of recent surgery extending up to upper abdominal segment. Thoracic portion and fem-fem grafts had no evidence for infection. Implants: 6 mm ringed PTFE Propaten Post-Operative Diagnosis: Same as Pre-op Surgeon: Carlos Stoner Drag Down: Leah Robertson Anesthesiologist/PREMIUM SERVICE REPRESENTATIVE: Paula Noel MD Anesthesia: General Specimens Removed: Portions of old graft Estimated Blood Loss (mls): 100
[2020-01-17] MEDS ORDERED: oxyCODONE HCL 5 MG TABLET PO PRN (17:57)
[2020-01-17] MEDS ORDERED: ONDANSETRON 4 MG/2 ML VIAL IVPUSH PRN (17:57)
[2020-01-17] MEDS ORDERED: PROMETHAZINE HCL 25 MG/1 ML VIAL IVPUSH PRN (17:57)
[2020-01-17] MEDS ORDERED: ACETAMINOPHEN INJECTION 100 ML IVPB ONE (18:03)
[2020-01-17] MEDS ORDERED: HYDROmorphone HCl 2 MG/ML VIAL ONE (18:06)
[2020-01-17] MEDS: HYDROmorphone HCl 2 MG/ML VIAL IVPB PRN (18:10)
[2020-01-17] MEDS: ACETAMINOPHEN 1000 MG/100 ML VIAL (NON FORMULARY) IVPB SCH ×2 (18:15→23:00)
[2020-01-17 18:32] LABS: BASO % 0.4 % (0-2.0); EOS % 0.1 % (0-4.5); HEMATOCRIT 32.8 % (35.4-49); HEMOGLOBIN 10.8 GM/dL (11.7-16.9); LYMPH % 13.5 % (8-40); MCH 30.2 pg (25.7-33.7); MEAN CELL VOLUME 91.4 fl (80-96); MEAN PLT VOLUME 7.9 fl (7.5-11.1); PLATELET COUNT 329 K/MM3 (134-434); RBC 3.59 M/mm3 (4.00-5.60); RDW 16.7 % (11.9-15.9); WHITE BLOOD COUNT 15.6 K/mm3 (4.0-10.0)
[2020-01-17] MEDS ORDERED: LOPERAMIDE HCL 2 MG CAPSULE PO PRN (18:55)
[2020-01-17] MEDS ORDERED: guaiFENesin/CODEINE 5 ML UNIT-DOSE CUPS PO PRN (18:55)
[2020-01-17 19:03] LABS: BLOOD UREA NITROGEN 10.8 mg/dL (7-18); CREATININE 0.9 mg/dL (0.55-1.3); POTASSIUM 3.9 mmol/L (3.5-5.1)
--- NOTE | 2020-01-17 20:40 | CONSULT ---
Consultation: REQUESTING PROVIDER: CONSULT REQUEST: We have been asked to medically evaluate this patient for admission to the ICU HISTORY OF PRESENT ILLNESS: 59 yo M w/ PMHx of HTN, hyperlipidemia, PAD s/p multiple stents/grafts/occluded grafts who was admitted to the ICU today s/p surgery for Prosthetic graft infection (Redo axillo-bifemoral bypass). Purulent material around prosthetic graft at site of recent surgery was found extending up to upper abdominal segment. Thoracic portion and fem-fem grafts had no evidence for infection. Patent denies any current GOSS, changes in vision, CP, SoB, pain, or parasthesias. Currently is not endorsing any pain and is lying comfortably. REVIEW OF SYSTEMS: CONSTITUTIONAL: Absent: fever, chills, diaphoresis, generalized weakness, malaise, loss of appetite, weight change HEENT: Absent: rhinorrhea, nasal congestion, throat pain, throat swelling, difficulty swallowing, mouth swelling, ear pain, eye pain, visual changes CARDIOVASCULAR: Absent: chest pain, syncope, palpitations, irregular heart rate, lightheadedness, peripheral edema RESPIRATORY: Absent: cough, shortness of breath, dyspnea with exertion, orthopnea, wheezing, stridor, hemoptysis GASTROINTESTINAL: Absent: abdominal pain, abdominal distension, nausea, vomiting MUSCULOSKELETAL: Absent: myalgia, arthralgia, joint swelling, back pain, neck pain SKIN: Absent: rash, itching, pallor NEUROLOGIC: Absent: headache, focal weakness or paresthesias, dizziness, unsteady gait, seizure, mental status changes PSYCHIATRIC: Absent: anxiety, depression PHYSICAL EXAMINATION Vital Signs - 24 hr 01/16/20 01/17/20 01/17/20 22:00 01:52 05:00 Temperature 98.8 F 99.1 F Pulse Rate 88 90 88 Respiratory 18 18 18 Rate Blood Pressure 124/64 106/63 112/65 O2 Sat by Pulse Oximetry (%) 01/17/20 09:00 Temperature 98.2 F Pulse Rate 91 H Respiratory 18 Rate Blood Pressure 122/65 O2 Sat by Pulse 90 L Oximetry (%) GENERAL: Awake, alert, and fully oriented, in no acute distress. HEAD: Normal with no signs of trauma. EYES: Pupils equal, round and reactive to light, extraocular movements intact, sclera anicteric, conjunctiva clear. No lid lag. EARS, NOSE, THROAT: Moist mucous membranes. NECK: Normal range of motion, supple without lymphadenopathy, JVD, or masses. LUNGS: Breath sounds equal, clear to auscultation bilaterally. No wheezes, and no crackles. No accessory muscle use. HEART: Regular rate and rhythm, normal S1 and S2 without murmur, rub or gallop. ABDOMEN: Soft, nontender, not distended, normoactive bowel sounds, no guarding, no rebound, no masses. No hepatomegaly or splenomegaly. MUSCULOSKELETAL: Strength 5/5 in upper and lower extremities. UPPER EXTREMITIES: 2+ pulses, warm, well-perfused. LOWER EXTREMITIES: 2+ pulses, warm, well-perfused. 2+ pitting edema b/l NEUROLOGICAL: Cranial nerves II-XII intact. Normal speech. Gait not tested. PSYCHIATRIC: Cooperative. Good eye contact. Appropriate mood and affect. SKIN: Three incisions noted on the upper right pectoral, abdominal, and groin area. Gauze is serosanguinous. Laboratory Results - last 24 hr 01/14/20 01/17/20 01/17/20 12:45 05:53 05:53 WBC 12.8 H RBC 3.64 L Hgb 10.8 L Hct 32.7 L MCV 89.8 MCH 29.6 MCHC 33.0 RDW 16.2 H Plt Count 349 D MPV 7.9 Absolute Neuts (auto) Neutrophils % Lymphocytes % Monocytes % Eosinophils % Basophils % Nucleated RBC % Sodium 136 Potassium 3.3 L Chloride 98 Carbon Dioxide 27 Anion Gap 11 BUN 9.8 Creatinine 0.9 Est GFR (CKD-EPI)AfAm 107.22 Est GFR (CKD-EPI)NonAf 92.51 Random Glucose 111 H Calcium 7.9 L Magnesium 2.2 Total Bilirubin 0.6 AST 31 ALT 16 Alkaline Phosphatase 163 H Total Protein 5.9 L Albumin 1.8 L Blood Type A POSITIVE Antibody Screen Negative Crossmatch See Detail 01/17/20 01/17/20 01/17/20 13:15 18:00 18:00 WBC 15.6 H RBC 3.59 L Hgb 10.8 L Hct 32.8 L MCV 91.4 MCH 30.2 MCHC 33.0 RDW 16.7 H Plt Count 329 MPV 7.9 Absolute Neuts (auto) 12.3 H Neutrophils % 79.0 Lymphocytes % 13.5 Monocytes % 7.0 Eosinophils % 0.1 Basophils % 0.4 Nucleated RBC % 0 Sodium 136 Potassium 3.9 Chloride 101 Carbon Dioxide 29 Anion Gap 6 L BUN 10.8 Creatinine 0.9 Est GFR (CKD-EPI)AfAm 107.22 Est GFR (CKD-EPI)NonAf 92.51 Random Glucose 133 H Calcium 8.0 L Magnesium Total Bilirubin AST ALT Alkaline Phosphatase Total Protein Albumin Blood Type A POSITIVE Antibody Screen Negative Crossmatch See Detail Active Medications Generic Name Dose Route Start Last Admin Trade Name Freq PRN Reason Stop Dose Admin Acetaminophen 325 mg 01/19/20 01:00 Tylenol - PO Q6H PRN PAIN LEVEL 1 - 3 Acetaminophen 1,000 mg 01/17/20 18:00 01/17/20 18:15 Ofirmev Injection - IVPB 01/18/20 12:01 1,000 mg Q6H [facility] Administration Aspirin 81 mg 01/18/20 10:00 Asa - PO DAILY [facility] Atorvastatin Calcium 40 mg 01/17/20 22:00 Lipitor - PO HS [facility] Chlorhexidine Gluconate 1 applic 01/17/20 22:00 Hibiclens For Decolonization - TP HS [facility] Clopidogrel Bisulfate 75 mg 01/18/20 10:00 Plavix - PO DAILY [facility] Docusate Sodium 100 mg 01/18/20 10:00 Colace - PO DAILY [facility] Enoxaparin Sodium 60 mg 01/17/20 22:00 Lovenox - SQ BID [facility] Fentanyl 50 mcg 01/17/20 17:57 Sublimaze Injection - IVPUSH [id number] PRN PAIN-PACU ORDER X 4 DOSES ONLY Gabapentin 300 mg 01/17/20 22:00 Neurontin - PO BID [facility] Guaifenesin/Codeine Phosphate 5 ml 01/17/20 18:55 Robitussin Ac - PO TID PRN COUGH Hydromorphone HCl 1 mg 01/17/20 17:42 01/17/20 18:10 Dilaudid Vial - IVPB 1 mg Q6H PRN Administration PAIN LEVEL 6-10 Cefazolin Sodium/Dextrose 2 gm in 50 mls @ 100 mls/hr 01/18/20 02:00 Ancef 2 Gm Premixed Ivpb - IVPB Q8H-IV [facility] Vancomycin HCl 1,000 mg in 250 mls @ 166.667 mls/hr 01/17/20 19:00 08/03/20 19:20 Vancomycin (Pre-Docked) IVPB 250 mls BID@0700,1900 [facility] Administration Protocol Loperamide HCl 4 mg 01/17/20 18:55 Imodium - PO Q6H PRN DIARRHEA Metronidazole 500 mg 01/17/20 22:00 Flagyl - PO TID [facility] Mupirocin 1 applic 01/17/20 22:00 Bactroban Ointment (For Decolonization) - NS 01/22/20 21:59 BID [facility] Ondansetron HCl 4 mg 01/17/20 17:57 Zofran Injection IVPUSH Q6H PRN NAUSEA AND/OR VOMITING Oxycodone HCl 10 mg 01/17/20 17:57 Roxicodone - PO 01/18/20 17:56 Q4H PRN PAIN LEVEL 6-10 Pantoprazole Sodium 40 mg 01/18/20 10:00 Protonix - PO DAILY [facility] Polyethylene Glycol 17 gm 01/18/20 10:00 Miralax (For Daily Use) - PO DAILY [facility] Potassium Chloride 40 meq 01/18/20 10:00 K-Dur - PO DAILY [facility] Promethazine HCl 12.5 mg 01/17/20 17:57 Phenergan Injection - IVPUSH Q6H PRN NAUSEA-FOR RESCUE AFTER 15 MIN Senna 1 tab 01/17/20 22:00 Senna - PO [facility] ASSESSMENT/PLAN: 59 yo M w/ PMHx of HTN, hyperlipidemia, PAD s/p multiple stents/grafts/occluded grafts who was admitted to the ICU today s/p surgery for Prosthetic graft infection (Redo axillo-bifemoral bypass). NEURO -VSS -AAOx3 -Continue to monitor neuro status CARDIAC/VASCULATURE -Post Op Day 0: Redo axillo-bifemoral bypass w/ Purulent material around pros thetic graft -Monitor graft drainage, check for hematomas -Hx HLD - Continue Atorvastatin -Hx PAD - Continue Plavix/Aspirin -DVT PPx - Lovenox 60 BID PULM -CT Chest - Resembles Covid, negative covid test -Monitor O2 Sats -Incentive Spirometer to prevent atelectasis GI -Monitor for passage of gas -Zofran/Phenegen for Nausea -Senna/Miralax -Protonix MSK/PAIN -Oxycodone -Gabapentin -Acetaminophen INFECTIOUS -Vancomycin -Cefazolin -Monitor for any wound site infection. FEN -Fluids: LR -Electrolytes: FU morning labs, CBC, BMP -Nutrition: CLD Dispo: We will continue to follow the patient. Thank you for this consultative opportunity. Visit type - Emergency Visit Emergency Visit: No - New Patient This patient is new to me today: Yes Date on this admission: 01/17/20 - Critical Care Critical Care patient: Yes Total Critical Care Time (in minutes): 36 Critical Care Statement: The care of this patient involved high complexity decision making to prevent further life threatening deterioration of the patient's condition and/or to evaluate & treat vital organ system(s) failure or risk of failure. ATTENDING PHYSICIAN STATEMENT I saw and evaluated the patient. I reviewed the resident's note and discussed the case with the resident. I agree with the resident's findings and plan as documented. SUBJECTIVE: OBJECTIVE: ASSESSMENT AND PLAN:
[2020-01-17] MEDS ORDERED: LACTATED RINGERS SOLUTION 1,000 ML/1,000 ML INFUS.BAG IV SCH (20:45)
[2020-01-17] MEDS: SENNOSIDES 8.6MG TABLET (FP) PO SCH ×2 (21:54→23:04)
[2020-01-17] MEDS ORDERED: ATORVASTATIN CA 40 MG TABLET (FP) PO SCH (22:00)
[2020-01-17] MEDS ORDERED: CHLORHEXIDINE GLUCONATE 4% CLEANSER FOR DECOLONIZATION TP SCH (22:00)
[2020-01-17] MEDS ORDERED: ENOXAPARIN NA (PORCINE) 60 MG/0.6 ML DISP.SYRIN SQ SCH (22:00)
[2020-01-17] MEDS: MUPIROCIN 2% TOPICAL OINTMENT FOR DECOLONIZATION NS SCH (22:34)
[2020-01-18] MEDS: CEFAZOLIN 2 GM/D5W 2 GM/50 ML ML IVPB SCH ×3 (01:35→17:29)
[2020-01-18] MEDS: HYDROmorphone HCl 2 MG/ML VIAL IVPB PRN ×2 (02:32→08:30)
[2020-01-18] MEDS: ACETAMINOPHEN 1000 MG/100 ML VIAL (NON FORMULARY) IVPB SCH ×2 (06:51→15:14)
[2020-01-18] MEDS: VANCOMYCIN 1 GRAM (PRE-DOCKED) 1,000 MG/250 ML BAG IVPB SCH ×2 (06:52→20:35)
[2020-01-18] MEDS: metroNIDAZOLE 500 MG TABLET PO SCH ×3 (06:58→21:46)
--- NOTE | 2020-01-18 06:58 | CONSULT ---
Consultation: REQUESTING PROVIDER: CONSULT REQUEST: We have been asked to medically evaluate this patient for (specify). HISTORY OF PRESENT ILLNESS: REVIEW OF SYSTEMS: CONSTITUTIONAL: Absent: fever, chills, diaphoresis, generalized weakness, malaise, loss of appetite, weight change HEENT: Absent: rhinorrhea, nasal congestion, throat pain, throat swelling, difficulty swallowing, mouth swelling, ear pain, eye pain, visual changes CARDIOVASCULAR: Absent: chest pain, syncope, palpitations, irregular heart rate, lightheadedness, peripheral edema RESPIRATORY: Absent: cough, shortness of breath, dyspnea with exertion, orthopnea, wheezing, stridor, hemoptysis GASTROINTESTINAL: Absent: abdominal pain, abdominal distension, nausea, vomiting, diarrhea, constipation, melena, hematochezia GENITOURINARY: Absent: dysuria, frequency, urgency, hesitancy, hematuria, flank pain, genital pain MUSCULOSKELETAL: Absent: myalgia, arthralgia, joint swelling, back pain, neck pain SKIN: Absent: rash, itching, pallor HEMATOLOGIC/IMMUNOLOGIC: Absent: easy bleeding, easy bruising, lymphadenopathy, frequent infections ENDOCRINE: Absent: unexplained weight gain, unexplained weight loss, heat intolerance, cold intolerance NEUROLOGIC: Absent: headache, focal weakness or paresthesias, dizziness, unsteady gait, seizure, mental status changes, bladder or bowel incontinence PSYCHIATRIC: Absent: anxiety, depression, suicidal or homicidal ideation, hallucinations. PHYSICAL EXAMINATION Vital Signs - 24 hr 01/17/20 01/17/20 01/17/20 09:00 17:56 18:00 Temperature 98.2 F 98.1 F Pulse Rate 91 H 97 H 97 H Respiratory 18 28 H 28 H Rate Blood Pressure 122/65 136/69 131/71 O2 Sat by Pulse 90 L 97 95 Oximetry (%) 01/17/20 01/17/20 01/17/20 18:15 18:30 18:45 Temperature Pulse Rate 91 H 90 92 H Respiratory 20 20 21 H Rate Blood Pressure 117/56 L 111/55 L 113/57 L O2 Sat by Pulse 98 98 98 Oximetry (%) 01/17/20 01/17/20 01/17/20 19:00 19:15 19:30 Temperature Pulse Rate 92 H 91 H 89 Respiratory 22 H 19 16 Rate Blood Pressure 104/56 L 110/56 L 95/64 O2 Sat by Pulse 98 97 96 Oximetry (%) 01/17/20 01/17/20 01/17/20 19:45 20:00 20:15 Temperature 98.0 F 98.0 F Pulse Rate 88 88 89 Respiratory 17 16 16 Rate Blood Pressure 107/48 L 96/52 L 108/71 O2 Sat by Pulse 97 98 100 Oximetry (%) 01/17/20 21:00 Temperature Pulse Rate Respiratory 20 Rate Blood Pressure O2 Sat by Pulse 100 Oximetry (%) GENERAL: Awake, alert, and fully oriented, in no acute distress. HEAD: Normal with no signs of trauma. EYES: Pupils equal, round and reactive to light, extraocular movements intact, sclera anicteric, conjunctiva clear. No lid lag. EARS, NOSE, THROAT: Ears normal, nares patent, oropharynx clear without exudates. Moist mucous membranes. NECK: Normal range of motion, supple without lymphadenopathy, JVD, or masses. LUNGS: Breath sounds equal, clear to auscultation bilaterally. No wheezes, and no crackles. No accessory muscle use. HEART: Regular rate and rhythm, normal S1 and S2 without murmur, rub or gallop. ABDOMEN: Soft, nontender, not distended, normoactive bowel sounds, no guarding, no rebound, no masses. No hepatomegaly or splenomegaly. MUSCULOSKELETAL: Normal range of motion at all joints. No bony deformities or tenderness. No CVA tenderness. UPPER EXTREMITIES: 2+ pulses, warm, well-perfused. No cyanosis. No clubbing. Cap refill <2 seconds. No peripheral edema. LOWER EXTREMITIES: 2+ pulses, warm, well-perfused. No calf tenderness. No peripheral edema. NEUROLOGICAL: Cranial nerves II-XII intact. Normal speech. Normal gait. PSYCHIATRIC: Cooperative. Good eye contact. Appropriate mood and affect. SKIN: Warm, dry, normal turgor, no rashes or lesions noted. Laboratory Results - last 24 hr 01/14/20 01/17/20 01/17/20 12:45 05:53 05:53 WBC 12.8 H RBC 3.64 L Hgb 10.8 L Hct 32.7 L MCV 89.8 MCH 29.6 MCHC 33.0 RDW 16.2 H Plt Count 349 D MPV 7.9 Absolute Neuts (auto) Neutrophils % Lymphocytes % Monocytes % Eosinophils % Basophils % Nucleated RBC % Sodium 136 Potassium 3.3 L Chloride 98 Carbon Dioxide 27 Anion Gap 11 BUN 9.8 Creatinine 0.9 Est GFR (CKD-EPI)AfAm 107.22 Est GFR (CKD-EPI)NonAf 92.51 Random Glucose 111 H Calcium 7.9 L Magnesium 2.2 Total Bilirubin 0.6 AST 31 ALT 16 Alkaline Phosphatase 163 H Total Protein 5.9 L Albumin 1.8 L Blood Type A POSITIVE Antibody Screen Negative Crossmatch See Detail 01/17/20 01/17/20 01/17/20 13:15 18:00 18:00 WBC 15.6 H RBC 3.59 L Hgb 10.8 L Hct 32.8 L MCV 91.4 MCH 30.2 MCHC 33.0 RDW 16.7 H Plt Count 329 MPV 7.9 Absolute Neuts (auto) 12.3 H Neutrophils % 79.0 Lymphocytes % 13.5 Monocytes % 7.0 Eosinophils % 0.1 Basophils % 0.4 Nucleated RBC % 0 Sodium 136 Potassium 3.9 Chloride 101 Carbon Dioxide 29 Anion Gap 6 L BUN 10.8 Creatinine 0.9 Est GFR (CKD-EPI)AfAm 107.22 Est GFR (CKD-EPI)NonAf 92.51 Random Glucose 133 H Calcium 8.0 L Magnesium Total Bilirubin AST ALT Alkaline Phosphatase Total Protein Albumin Blood Type A POSITIVE Antibody Screen Negative Crossmatch See Detail Active Medications Generic Name Dose Route Start Last Admin Trade Name Freq PRN Reason Stop Dose Admin Acetaminophen 325 mg 01/19/20 01:00 Tylenol - PO Q6H PRN PAIN LEVEL 1 - 3 Acetaminophen 1,000 mg 01/17/20 18:00 01/18/20 06:51 Ofirmev Injection - IVPB 01/18/20 12:01 1,000 mg Q6H [facility] Administration Aspirin 81 mg 01/18/20 10:00 Asa - PO DAILY [facility] Atorvastatin Calcium 40 mg 01/17/20 22:00 01/17/20 21:53 Lipitor - PO 40 mg HS [facility] Administration Chlorhexidine Gluconate 1 applic 01/17/20 22:00 01/17/20 21:53 Hibiclens For Decolonization - TP 1 applic HS [facility] Administration Clopidogrel Bisulfate 75 mg 01/18/20 10:00 Plavix - PO DAILY [facility] Docusate Sodium 100 mg 01/18/20 10:00 Colace - PO DAILY [facility] Enoxaparin Sodium 60 mg 01/17/20 22:00 01/17/20 21:54 Lovenox - SQ 60 mg BID [facility] Administration Fentanyl 50 mcg 01/17/20 17:57 Sublimaze Injection - IVPUSH [id number] PRN PAIN-PACU ORDER X 4 DOSES ONLY Gabapentin 300 mg 01/17/20 22:00 01/17/20 21:54 Neurontin - PO 300 mg BID [facility] Administration Guaifenesin/Codeine Phosphate 5 ml 01/17/20 18:55 Robitussin Ac - PO TID PRN COUGH Hydromorphone HCl 1 mg 01/17/20 17:42 01/18/20 02:32 Dilaudid Vial - IVPB 1 mg Q6H PRN Administration PAIN LEVEL 6-10 Cefazolin Sodium/Dextrose 2 gm in 50 mls @ 100 mls/hr 01/18/20 02:00 01/18/20 01:35 Ancef 2 Gm Premixed Ivpb - IVPB 100 mls/hr Q8H-IV [facility] Administration Vancomycin HCl 1,000 mg in 250 mls @ 166.667 mls/hr 01/17/20 19:00 01/18/20 06:52 Vancomycin (Pre-Docked) IVPB 166.667 mls/hr BID@0700,1900 [facility] Administration Protocol Lactated Ringer's 1,000 ml in 1,000 mls @ 100 mls/hr 01/17/20 20:45 01/17/20 22:34 Lactated Ringers Solution IV 100 mls/hr ASDIR [facility] Administration Loperamide HCl 4 mg 01/17/20 18:55 Imodium - PO Q6H PRN DI[facility] Metronidazole 500 mg 01/17/20 22:00 01/17/20 21:53 Flagyl - PO 500 mg TID [facility] Administration Mupirocin 1 applic 01/17/20 22:00 01/17/20 22:34 Bactroban Ointment (For Decolonization) - NS 01/22/20 21:59 1 applic BID [facility] Administration Ondansetron HCl 4 mg 01/17/20 17:57 Zofran Injection IVPUSH Q6H PRN NAUSEA AND/OR VOMITING Oxycodone HCl 10 mg 01/17/20 17:57 Roxicodone - PO 01/18/20 17:56 Q4H PRN PAIN LEVEL 6-10 Pantoprazole Sodium 40 mg 01/18/20 10:00 Protonix - PO DAILY [facility] Polyethylene Glycol 17 gm 01/18/20 10:00 Miralax (For Daily Use) - PO DAILY [facility] Potassium Chloride 40 meq 01/18/20 10:00 K-Dur - PO DAILY [facility] Promethazine HCl 12.5 mg 01/17/20 17:57 Phenergan Injection - IVPUSH Q6H PRN NAUSEA-FOR RESCUE AFTER 15 MIN Senna 1 tab 01/17/20 22:00 01/17/20 23:04 Senna - PO Not Given HS [facility] ASSESSMENT/PLAN: Dispo: We will continue to follow the patient. Thank you for this consultative opportunity. ATTENDING PHYSICIAN STATEMENT I saw and evaluated the patient. I reviewed the resident's note and discussed the case with the resident. I agree with the resident's findings and plan as documented. SUBJECTIVE: OBJECTIVE: ASSESSMENT AND PLAN:
--- NOTE | 2020-01-18 07:01 | PN ---
Physical Exam: SUBJECTIVE: 59 yo M w/ PMHx of HTN, hyperlipidemia, PAD s/p multiple stents/grafts/occluded grafts who was admitted to the ICU s/p surgery for P rosthetic graft infection (Redo axillo-bifemoral bypass), currently POD #1. Patient seen and examined, endorsed no complaints, no CP, SoB, no extremity pain/parasthesias. OBJECTIVE: Vital Signs Period Temp Pulse Resp BP Sys/White Pulse Ox Last 24 Hr 98.0 F-98.2 F 88-97 16-28 95-136/48-71 90-100 GENERAL: The patient is awake, alert, and fully oriented, in no acute distress. HEAD: Normal with no signs of trauma. EYES: PERRL, extraocular movements intact, sclera anicteric, conjunctiva clear. No ptosis. ENT: Ears normal, nares patent, oropharynx clear without exudates, moist mucous membranes. NECK: Trachea midline, full range of motion, supple. LUNGS: Breath sounds equal, clear to auscultation bilaterally, no wheezes, no crackles, no accessory muscle use. HEART: Regular rate and rhythm, S1, S2 without murmur, rub or gallop. ABDOMEN: Soft, nontender, nondistended, normoactive bowel sounds, no guarding EXTREMITIES: 2+ pulses, warm, well-perfused, 2+ pitting edema in the LE b/l NEUROLOGICAL: Cranial nerves II through XII grossly intact. Normal speech, gait not observed. PSYCH: Normal mood, normal affect. SKIN: Warm, dry, normal turgor, no rashes or lesions noted Laboratory Results - last 24 hr 01/14/20 01/17/20 01/17/20 12:45 05:53 05:53 WBC 12.8 H RBC 3.64 L Hgb 10.8 L Hct 32.7 L MCV 89.8 MCH 29.6 MCHC 33.0 RDW 16.2 H Plt Count 349 D MPV 7.9 Absolute Neuts (auto) Neutrophils % Lymphocytes % Monocytes % Eosinophils % Basophils % Nucleated RBC % Sodium 136 Potassium 3.3 L Chloride 98 Carbon Dioxide 27 Anion Gap 11 BUN 9.8 Creatinine 0.9 Est GFR (CKD-EPI)AfAm 107.22 Est GFR (CKD-EPI)NonAf 92.51 Random Glucose 111 H Calcium 7.9 L Magnesium 2.2 Total Bilirubin 0.6 AST 31 ALT 16 Alkaline Phosphatase 163 H Total Protein 5.9 L Albumin 1.8 L Blood Type A POSITIVE Antibody Screen Negative Crossmatch See Detail 01/17/20 01/17/20 01/17/20 13:15 18:00 18:00 WBC 15.6 H RBC 3.59 L Hgb 10.8 L Hct 32.8 L MCV 91.4 MCH 30.2 MCHC 33.0 RDW 16.7 H Plt Count 329 MPV 7.9 Absolute Neuts (auto) 12.3 H Neutrophils % 79.0 Lymphocytes % 13.5 Monocytes % 7.0 Eosinophils % 0.1 Basophils % 0.4 Nucleated RBC % 0 Sodium 136 Potassium 3.9 Chloride 101 Carbon Dioxide 29 Anion Gap 6 L BUN 10.8 Creatinine 0.9 Est GFR (CKD-EPI)AfAm 107.22 Est GFR (CKD-EPI)NonAf 92.51 Random Glucose 133 H Calcium 8.0 L Magnesium Total Bilirubin AST ALT Alkaline Phosphatase Total Protein Albumin Blood Type A POSITIVE Antibody Screen Negative Crossmatch See Detail Active Medications Home Medication List Medication Instructions Recorded Confirmed Type Simvastatin 20 mg PO HS 03/12/18 01/09/20 History Enoxaparin [Lovenox -] 100 mg SQ DAILY 01/09/20 01/09/20 History Gabapentin [Neurontin -] 300 mg PO BID 01/09/20 01/09/20 History Active Medications Acetaminophen (Tylenol -) 325 mg PO Q6H PRN PRN Reason: PAIN LEVEL 1 - 3 Acetaminophen (Ofirmev Injection -) 1,000 mg IVPB Q6H [facility] Stop: 01/18/20 12:01 Last Admin: 01/18/20 06:51 Dose: 1,000 mg Documented by: Aspirin (Asa -) 81 mg PO DAILY [facility] Last Admin: 01/18/20 10:27 Dose: 81 mg Documented by: Atorvastatin Calcium (Lipitor -) 40 mg PO [facility] Last Admin: 01/17/20 21:53 Dose: 40 mg Documented by: Chlorhexidine Gluconate (Hibiclens For Decolonization -) 1 applic TP [facility] Last Admin: 01/17/20 21:53 Dose: 1 applic Documented by: Clopidogrel Bisulfate (Plavix -) 75 mg PO DAILY [facility] Last Admin: 01/18/20 10:27 Dose: 75 mg Documented by: Enoxaparin Sodium (Lovenox -) 100 mg SQ BID [facility] Last Admin: 01/18/20 10:27 Dose: 100 mg Documented by: Gabapentin (Neurontin -) 300 mg PO BID [facility] Last Admin: 01/18/20 10:27 Dose: 300 mg Documented by: Guaifenesin/Codeine Phosphate (Robitussin Ac -) 5 ml PO TID PRN PRN Reason: COUGH Cefazolin Sodium/Dextrose (Ancef 2 Gm Premixed Ivpb -) 2 gm in 50 mls @ 100 mls/hr IVPB Q8H-IV [facility] Last Admin: 01/18/20 10:27 Dose: 100 mls/hr Documented by: Vancomycin HCl (Vancomycin (Pre-Docked)) 1,000 mg in 250 mls @ 166.667 mls/hr IVPB BID@0700,1900 [facility]; Protocol Last Admin: 01/18/20 06:52 Dose: 166.667 mls/hr Documented by: Metronidazole (Flagyl -) 500 mg PO TID [facility] Last Admin: 01/18/20 06:58 Dose: 500 mg Documented by: Mupirocin (Bactroban Ointment (For Decolonization) -) 1 applic NS BID [facility] Stop: 01/22/20 21:59 Last Admin: 01/18/20 10:29 Dose: 1 applic Documented by: Ondansetron HCl (Zofran Injection) 4 mg IVPUSH Q6H PRN PRN Reason: NAUSEA AND/OR VOMITING Oxycodone HCl (Roxicodone -) 10 mg PO Q4H PRN PRN Reason: PAIN LEVEL 7-10 Stop: 01/18/20 17:56 Oxycodone HCl (Roxicodone -) 5 mg PO Q4H PRN PRN Reason: PAIN LEVEL 4-6 Pantoprazole Sodium (Protonix -) 40 mg PO DAILY [facility] Last Admin: 01/18/20 10:27 Dose: 40 mg Documented by: Polyethylene Glycol (Miralax (For Daily Use) -) 17 gm PO DAILY PRN PRN Reason: CONSTIPATION Promethazine HCl (Phenergan Injection -) 12.5 mg IVPUSH Q6H PRN PRN Reason: NAUSEA-FOR RESCUE AFTER 15 MIN ASSESSMENT/PLAN: 59 yo M w/ PMHx of HTN, hyperlipidemia, PAD s/p multiple stents/grafts/occluded grafts who was admitted to the ICU today s/p surgery for Prosthetic graft infection (Redo axillo-bifemoral bypass), currently POD #1 NEURO -VSS -AAOx3 -Continue to monitor neuro status CARDIAC/VASCULATURE -Post Op Day 1: Redo axillo-bifemoral bypass w/ Purulent material around prosthetic graft -Monitor graft drainage, check for hematomas - wound sites clear, changed today by surgery -Hx HLD - Continue Atorvastatin -Hx PAD - Continue Plavix/Aspirin -DVT PPx - Lovenox 60 BID --> increased to 100 BID PULM -CT Chest - Resembles Covid, negative covid test -Monitor O2 Sats - patient satting well, breathing comfortably. -Incentive Spirometer to prevent atelectasis GI -Monitor for passage of gas -Zofran/Phenegen for Nausea -Senna/Miralax/Colace -Protonix MSK/PAIN -Oxycodone -Gabapentin -Acetaminophen -PT per Surgery guidelines. INFECTIOUS -Vancomycin -Cefazolin -Metronidazol -Monitor for any wound site infection. -Pending Cdiff Specimen collection -Covid precautions 2/2 CT findings despite negative test. FEN -Fluids: LR -Electrolytes: FU morning labs, CBC, BMP -Nutrition: Full Diet Dispo: Patient was seen today by the ICU team and was deemed hemodynamically stable and ready for transfer to the Med Surg Floor. Visit type - Emergency Visit Emergency Visit: No - New Patient This patient is new to me today: Yes Date on this admission: 01/18/20 - Critical Care Critical Care patient: Yes Total Critical Care Time (in minutes): 36 Critical Care Statement: The care of this patient involved high complexity decision making to prevent further life threatening deterioration of the patient's condition and/or to evaluate & treat vital organ system(s) failure or risk of failure. - Discharge Referral Referred to [facility] No ATTENDING PHYSICIAN STATEMENT I saw and evaluated the patient. I reviewed the resident's note and discussed the case with the resident. I agree with the resident's findings and plan as documented. SUBJECTIVE: OBJECTIVE: ASSESSMENT AND PLAN:
--- NOTE | 2020-01-18 07:23 | SURG ---
Surgery Site Administrator Note Site Administrator: Leah Robertson PA-C Date of Service: 01/17/20 Diagnosis: Prosthetic graft infection Procedure: Redo axillo-bifemoral bypass. Excision infected graft. I was present for the entirety of the operative procedure. For further detail, please refer to operative report.
[2020-01-18 07:59] LABS: BASO % 0.6 % (0-2.0); EOS % 0.5 % (0-4.5); HEMATOCRIT 28.7 % (35.4-49); HEMOGLOBIN 9.4 GM/dL (11.7-16.9); LYMPH % 17.3 % (8-40); MCH 30.1 pg (25.7-33.7); MCHC 32.6 g/dl (32.0-35.9); MEAN CELL VOLUME 92.2 fl (80-96); MONO % 5.4 % (3.8-10.2); NEUT % 76.2 % (42.8-82.8); PLATELET COUNT 318 K/MM3 (134-434); RBC 3.11 M/mm3 (4.00-5.60); RDW 16.7 % (11.9-15.9)
[2020-01-18 08:30] LABS: BLOOD UREA NITROGEN 10.3 mg/dL (7-18); CALCIUM 7.8 mg/dL (8.5-10.1); CREATININE 0.7 mg/dL (0.55-1.3); POTASSIUM 3.8 mmol/L (3.5-5.1)
[2020-01-18] MEDS ORDERED: DOCUSATE SODIUM 100 MG CAPSULE (FP) PO PRN (09:01)
[2020-01-18] MEDS ORDERED: POLYETHYLENE GLYCOL 3350 119 GM BTL PO PRN ×2 (09:03→16:02)
[2020-01-18] MEDS ORDERED: oxyCODONE HCL 5 MG TABLET PO PRN ×2 (09:04→16:02)
--- NOTE | 2020-01-18 09:11 | PN ---
Progress Note (short form) - Note Progress Note: Surgery: Pt seen and examined this am with Dr. Stoner. He complains of some pain, giving IV dilaudid this am for dressing changes. Vital Signs Period Temp Pulse Resp BP Sys/White Pulse Ox Last 24 Hr 97.9 F-98.1 F 71-97 16-28 91-136/48-71 95-100 Raymundo:900 ml GEN: A&0x3, NAD ABD: soft, non-distended, inc tenderness. All incision which are closed with levy are clean and intact. Wounds painted with iodoform. Two incisions remain open, packing removed. irrigated and iodoform packing replaced. No purulent drainage noted. LE: warm to touch with +DP pulses with doppler CBC, BMP 01/18/20 05:20 01/18/20 05:20 A/P: 59 yo male s/p Redo axillo-bifemoral bypass. Excision infected graft. Doing well surgically, will resume lovenox 100mg BID this am as well as his aspirin and plavix Bed rest x 24 hours and then PT consult 01/18 for mobilization Oral pain medications as needed, stool softners prn IV abx, f/u OR culture Local wound care Regular diet <Leah Robertson - Last Filed: 01/18/20 09:21> - Note Progress Note: Need to discuss plans for long-term IV antibiotic regimen with ID <Carlos Stoner - Last Filed: 01/19/20 09:57>
[2020-01-18] MEDS ORDERED: PANTOPRAZOLE 40 MG TABLET PO SCH (10:00)
[2020-01-18] MEDS ORDERED: DOCUSATE SODIUM 100 MG CAPSULE (FP) PO SCH (10:00)
[2020-01-18] MEDS ORDERED: POTASSIUM CHLORIDE TABS 20 MEQ TABLET.ER (FP) PO SCH (10:00)
[2020-01-18] MEDS ORDERED: CLOPIDOGREL BISULFATE 75 MG TABLET (FP) PO SCH (10:00)
[2020-01-18] MEDS ORDERED: ENOXAPARIN NA (PORCINE) 100 MG/1 ML DISP.SYRIN SQ SCH (10:00)
[2020-01-18] MEDS ORDERED: ASPIRIN 81 MG CHEWABLE TABLETS PO SCH (10:00)
[2020-01-18] MEDS ORDERED: POLYETHYLENE GLYCOL 3350 119 GM BTL PO SCH (10:00)
[2020-01-18] MEDS: GABAPENTIN 300 MG CAPSULE PO SCH ×2 (10:27→21:46)
[2020-01-18] MEDS: MUPIROCIN 2% TOPICAL OINTMENT FOR DECOLONIZATION NS SCH ×2 (10:29→21:40)
--- NOTE | 2020-01-18 12:08 | PN ---
Progress Note, Physician History of Present Illness: Pt seen and examined at bedside. He is in the ICU. He is awake and alert. He denies shortness of breath. He feels diarrhea is improved. - Current Medication List Current Medications: Active Medications Acetaminophen (Tylenol -) 325 mg PO Q6H PRN PRN Reason: PAIN LEVEL 1 - 3 Aspirin (Asa -) 81 mg PO DAILY [facility] Last Admin: 01/18/20 10:27 Dose: 81 mg Documented by: Atorvastatin Calcium (Lipitor -) 40 mg PO [facility] Last Admin: 01/17/20 21:53 Dose: 40 mg Documented by: Chlorhexidine Gluconate (Hibiclens For Decolonization -) 1 applic TP [facility] Last Admin: 01/17/20 21:53 Dose: 1 applic Documented by: Clopidogrel Bisulfate (Plavix -) 75 mg PO DAILY [facility] Last Admin: 01/18/20 10:27 Dose: 75 mg Documented by: Enoxaparin Sodium (Lovenox -) 100 mg SQ BID [facility] Last Admin: 01/18/20 10:27 Dose: 100 mg Documented by: Gabapentin (Neurontin -) 300 mg PO BID [facility] Last Admin: 01/18/20 10:27 Dose: 300 mg Documented by: Guaifenesin/Codeine Phosphate (Robitussin Ac -) 5 ml PO TID PRN PRN Reason: COUGH Cefazolin Sodium/Dextrose (Ancef 2 Gm Premixed Ivpb -) 2 gm in 50 mls @ 100 mls/hr IVPB Q8H-IV [facility] Last Admin: 01/18/20 10:27 Dose: 100 mls/hr Documented by: Vancomycin HCl (Vancomycin (Pre-Docked)) 1,000 mg in 250 mls @ 166.667 mls/hr IVPB BID@0700,1900 [facility]; Protocol Last Admin: 01/18/20 06:52 Dose: 166.667 mls/hr Documented by: Metronidazole (Flagyl -) 500 mg PO TID [facility] Last Admin: 01/18/20 06:58 Dose: 500 mg Documented by: Mupirocin (Bactroban Ointment (For Decolonization) -) 1 applic NS BID [facility] Stop: 01/22/20 21:59 Last Admin: 01/18/20 10:29 Dose: 1 applic Documented by: Ondansetron HCl (Zofran Injection) 4 mg IVPUSH Q6H PRN PRN Reason: NAUSEA AND/OR VOMITING Oxycodone HCl (Roxicodone -) 10 mg PO Q4H PRN PRN Reason: PAIN LEVEL 7-10 Stop: 01/18/20 17:56 Oxycodone HCl (Roxicodone -) 5 mg PO Q4H PRN PRN Reason: PAIN LEVEL 4-6 Pantoprazole Sodium (Protonix -) 40 mg PO DAILY [facility] Last Admin: 01/18/20 10:27 Dose: 40 mg Documented by: Polyethylene Glycol (Miralax (For Daily Use) -) 17 gm PO DAILY PRN PRN Reason: CONSTIPATION Promethazine HCl (Phenergan Injection -) 12.5 mg IVPUSH Q6H PRN PRN Reason: NAUSEA-FOR RESCUE AFTER 15 MIN - Objective Vital Signs: Vital Signs Temperature 97.9 F 01/18/20 06:00 Pulse Rate 75 01/18/20 06:00 Respiratory Rate 22 H 01/18/20 06:00 Blood Pressure 96/66 01/18/20 06:00 O2 Sat by Pulse Oximetry (%) 100 01/18/20 00:00 Constitutional: Yes: Calm Eyes: Yes: Conjunctiva Clear Neck: Yes: Supple Cardiovascular: Yes: S1, S2 Respiratory: Yes: CTA Bilaterally Gastrointestinal: Yes: Normal Bowel Sounds, Soft Genitourinary: Yes: WNL Musculoskeletal: Yes: WNL Edema: No Neurological: Yes: Oriented Psychiatric: Yes: Oriented Labs: CBC, BMP 01/18/20 05:20 01/18/20 05:20 INR, PTT INR 1.26 (0.83-1.09) H 01/14/20 19:45 Problem List - Problems (1) ALICIA (acute kidney injury) Code(s): N17.9 - ACUTE KIDNEY FAILURE, UNSPECIFIED (2) Cough Code(s): R05 - COUGH Assessment/Plan Current Medications Generic Name Dose Route Start Last Admin Trade Name Freq PRN Reason Stop Dose Admin Acetaminophen 325 mg 01/19/20 01:00 Tylenol - PO Q6H PRN PAIN LEVEL 1 - 3 Aspirin 81 mg 01/18/20 10:00 01/18/20 10:27 Asa - PO 81 mg DAILY [facility] Administration Atorvastatin Calcium 40 mg 01/17/20 22:00 01/17/20 21:53 Lipitor - PO 40 mg HS [facility] Administration Chlorhexidine Gluconate 1 applic 01/17/20 22:00 01/17/20 21:53 Hibiclens For Decolonization - TP 1 applic HS [facility] Administration Clopidogrel Bisulfate 75 mg 01/18/20 10:00 01/18/20 10:27 Plavix - PO 75 mg DAILY [facility] Administration Enoxaparin Sodium 100 mg 01/18/20 10:00 01/18/20 10:27 Lovenox - SQ 100 mg BID [facility] Administration Gabapentin 300 mg 01/17/20 22:00 01/18/20 10:27 Neurontin - PO 300 mg BID [facility] Administration Guaifenesin/Codeine Phosphate 5 ml 01/17/20 18:55 Robitussin Ac - PO TID PRN COUGH Cefazolin Sodium/Dextrose 2 gm in 50 mls @ 100 mls/hr 01/18/20 02:00 01/18/20 10:27 Ancef 2 Gm Premixed Ivpb - IVPB 100 mls/hr Q8H-IV [facility] Administration Vancomycin HCl 1,000 mg in 250 mls @ 166.667 mls/hr 01/17/20 19:00 01/18/20 06:52 Vancomycin (Pre-Docked) IVPB 166.667 mls/hr BID@0700,1900 [facility] Administration Protocol Metronidazole 500 mg 01/17/20 22:00 01/18/20 06:58 Flagyl - PO 500 mg TID [facility] Administration Mupirocin 1 applic 01/17/20 22:00 01/18/20 10:29 Bactroban Ointment (For Decolonization) - NS 01/22/20 21:59 1 applic BID [facility] Administration Ondansetron HCl 4 mg 01/17/20 17:57 Zofran Injection IVPUSH Q6H PRN NAUSEA AND/OR VOMITING Oxycodone HCl 10 mg 01/17/20 17:57 Roxicodone - PO 01/18/20 17:56 Q4H PRN PAIN LEVEL 7-10 Oxycodone HCl 5 mg 01/18/20 09:04 Roxicodone - PO Q4H PRN PAIN LEVEL 4-6 Pantoprazole Sodium 40 mg 01/18/20 10:00 01/18/20 10:27 Protonix - PO 40 mg DAILY [facility] Administration Polyethylene Glycol 17 gm 01/18/20 09:03 Miralax (For Daily Use) - PO DAILY PRN CONSTIPATION Promethazine HCl 12.5 mg 01/17/20 17:57 Phenergan Injection - IVPUSH Q6H PRN NAUSEA-FOR RESCUE AFTER 15 MIN Impression 1. alicia resolved 2. bacteremia 3. htn 4. hld 5. pvd Plan - renal function stable - can cont fluids if he is having diarrhea - vascular input appreciated - monitor enrollment advisor - avoid nephrotoxins - avoid nsaids
--- NOTE | 2020-01-18 12:25 | PN ---
Teaching Attending Note Name of Resident: Mele Shay ATTENDING PHYSICIAN STATEMENT I saw and evaluated the patient. I reviewed the resident's note and discussed the case with the resident. I agree with the resident's findings and plan as documented. SUBJECTIVE: Pt seen and examined in the ICU. s/p redo axillo-bifemoral bypass. Pain c ontrolled. No shortness of breath or chest pain. OBJECTIVE: Vital Signs Period Temp Pulse Resp BP Sys/White Pulse Ox Last 24 Hr 97.9 F-98.1 F 71-97 16-28 91-136/48-71 95-100 Intake & Output 01/15/20 01/16/20 01/17/20 01/18/20 23:59 23:59 23:59 23:59 Intake Total 900 1300 2710 1300 Output Total 1100 1600 950 700 Balance -200 -300 1760 600 Weight 77.111 kg 82.962 kg Gen: NAD at rest Heart: RRR Lung: decreased breath sounds at the bases Abd: soft, dressings dry Ext: no edema, warm CBC, BMP 01/18/20 05:20 01/18/20 05:20 Active Medications Acetaminophen (Tylenol -) 325 mg PO Q6H PRN PRN Reason: PAIN LEVEL 1 - 3 Aspirin (Asa -) 81 mg PO DAILY [facility] Last Admin: 01/18/20 10:27 Dose: 81 mg Documented by: Atorvastatin Calcium (Lipitor -) 40 mg PO [facility] Last Admin: 01/17/20 21:53 Dose: 40 mg Documented by: Chlorhexidine Gluconate (Hibiclens For Decolonization -) 1 applic TP [facility] Last Admin: 01/17/20 21:53 Dose: 1 applic Documented by: Clopidogrel Bisulfate (Plavix -) 75 mg PO DAILY [facility] Last Admin: 01/18/20 10:27 Dose: 75 mg Documented by: Enoxaparin Sodium (Lovenox -) 100 mg SQ BID [facility] Last Admin: 01/18/20 10:27 Dose: 100 mg Documented by: Gabapentin (Neurontin -) 300 mg PO BID [facility] Last Admin: 01/18/20 10:27 Dose: 300 mg Documented by: Guaifenesin/Codeine Phosphate (Robitussin Ac -) 5 ml PO TID PRN PRN Reason: COUGH Cefazolin Sodium/Dextrose (Ancef 2 Gm Premixed Ivpb -) 2 gm in 50 mls @ 100 mls/hr IVPB Q8H-IV [facility] Last Admin: 01/18/20 10:27 Dose: 100 mls/hr Documented by: Vancomycin HCl (Vancomycin (Pre-Docked)) 1,000 mg in 250 mls @ 166.667 mls/hr IVPB BID@0700,1900 [facility]; Protocol Last Admin: 01/18/20 06:52 Dose: 166.667 mls/hr Documented by: Metronidazole (Flagyl -) 500 mg PO TID [facility] Last Admin: 01/18/20 06:58 Dose: 500 mg Documented by: Mupirocin (Bactroban Ointment (For Decolonization) -) 1 applic NS BID [facility] Stop: 01/22/20 21:59 Last Admin: 01/18/20 10:29 Dose: 1 applic Documented by: Ondansetron HCl (Zofran Injection) 4 mg IVPUSH Q6H PRN PRN Reason: NAUSEA AND/OR VOMITING Oxycodone HCl (Roxicodone -) 10 mg PO Q4H PRN PRN Reason: PAIN LEVEL 7-10 Stop: 01/18/20 17:56 Oxycodone HCl (Roxicodone -) 5 mg PO Q4H PRN PRN Reason: PAIN LEVEL 4-6 Pantoprazole Sodium (Protonix -) 40 mg PO DAILY [facility] Last Admin: 01/18/20 10:27 Dose: 40 mg Documented by: Polyethylene Glycol (Miralax (For Daily Use) -) 17 gm PO DAILY PRN PRN Reason: CONSTIPATION Promethazine HCl (Phenergan Injection -) 12.5 mg IVPUSH Q6H PRN PRN Reason: NAUSEA-FOR RESCUE AFTER 15 MIN ASSESSMENT AND PLAN: Staph Bacteremia/Infected Graft s/p Redo Axillo-Bifemoral Bypass Wound Infection Sepsis Acute Kidney Injury resolved Hyponatremia PAD HTN Hyperlipidemia Anemia - continue antibiotics - monitor urine output, creatinine - ASA, plavix - continue anticoagulation - wound care - O2 to keep Spo2 >90% - DVT prophylaxis
--- NOTE | 2020-01-18 12:56 | PN ---
Progress Note (short form) - Note Progress Note: cc b/l leg pain s: no chest pain, palps, dizziness, dyspnea Current Medications Generic Name Dose Route Start Last Admin Trade Name Freq PRN Reason Stop Dose Admin Acetaminophen 325 mg 01/19/20 01:00 Tylenol - PO Q6H PRN PAIN LEVEL 1 - 3 Aspirin 81 mg 01/18/20 10:00 01/18/20 10:27 Asa - PO 81 mg DAILY [facility] Administration Atorvastatin Calcium 40 mg 01/17/20 22:00 01/17/20 21:53 Lipitor - PO 40 mg HS [facility] Administration Chlorhexidine Gluconate 1 applic 01/17/20 22:00 01/17/20 21:53 Hibiclens For Decolonization - TP 1 applic HS [facility] Administration Clopidogrel Bisulfate 75 mg 01/18/20 10:00 01/18/20 10:27 Plavix - PO 75 mg DAILY [facility] Administration Enoxaparin Sodium 100 mg 01/18/20 10:00 01/18/20 10:27 Lovenox - SQ 100 mg BID [facility] Administration Gabapentin 300 mg 01/17/20 22:00 01/18/20 10:27 Neurontin - PO 300 mg BID [facility] Administration Guaifenesin/Codeine Phosphate 5 ml 01/17/20 18:55 Robitussin Ac - PO TID PRN COUGH Cefazolin Sodium/Dextrose 2 gm in 50 mls @ 100 mls/hr 01/18/20 02:00 01/18/20 10:27 Ancef 2 Gm Premixed Ivpb - IVPB 100 mls/hr Q8H-IV [facility] Administration Vancomycin HCl 1,000 mg in 250 mls @ 166.667 mls/hr 01/17/20 19:00 01/18/20 06:52 Vancomycin (Pre-Docked) IVPB 166.667 mls/hr BID@0700,1900 [facility] Administration Protocol Metronidazole 500 mg 01/17/20 22:00 01/18/20 06:58 Flagyl - PO 500 mg TID [facility] Administration Mupirocin 1 applic 01/17/20 22:00 01/18/20 10:29 Bactroban Ointment (For Decolonization) - NS 01/22/20 21:59 1 applic BID [facility] Administration Ondansetron HCl 4 mg 01/17/20 17:57 Zofran Injection IVPUSH Q6H PRN NAUSEA AND/OR VOMITING Oxycodone HCl 10 mg 01/17/20 17:57 Roxicodone - PO 01/18/20 17:56 Q4H PRN PAIN LEVEL 7-10 Oxycodone HCl 5 mg 01/18/20 09:04 Roxicodone - PO Q4H PRN PAIN LEVEL 4-6 Pantoprazole Sodium 40 mg 01/18/20 10:00 01/18/20 10:27 Protonix - PO 40 mg DAILY [facility] Administration Polyethylene Glycol 17 gm 01/18/20 09:03 Miralax (For Daily Use) - PO DAILY PRN CONSTIPATION Promethazine HCl 12.5 mg 01/17/20 17:57 Phenergan Injection - IVPUSH Q6H PRN NAUSEA-FOR RESCUE AFTER 15 MIN Vital Signs Period Temp Pulse Resp BP Sys/White Pulse Ox Last 24 Hr 97.9 F-98.2 F 71-97 16-28 90-136/48-71 95-100 nad no jvd rrr s1s2 no mrg cta bl nl eff aaox3 no le edema no jaundice diaphoresis abd nt nd pos bs not agitated CT chest: mild chronic lung dz with no acute pathology ecg: sr, nl intervals, no ischemic changes mibi 11/2016: no ischemia, lvef 80 echo 12/2019 nl LV function, impaired relaxation, nl RV, mild MR, tr to mild TR, mildly sclerotic AV no dysfunction tele: sr a/p: 59 m hx htn, pad here with b/l leg pain, fever, bacteremia fever, wound infection, staph bacteremia, sepsis: - s/p redo axillo-fem bypass and removal of infected graft - no vegetation on echo -manage per vascular pad, history of graft thrombosis: - cont plavix, aspirin, lovenox per vascular htn: -not on meds at home -soft BPs here, monitor ALICIA: - likely prerenal, improved with IVF - renal following Prolonged QT on tele: -stable -Check K+/Mg2+ (keep K> 4 and Mg > 2) -Avoid/ minimize QT prolonging drugs
--- NOTE | 2020-01-18 15:13 | PN ---
Progress Note, Physician Chief Complaint: Right Axillo-femoral and femorofemoral bypass Right fem-tibial graft with multiple episodes of graft thrombosis Right groin post op infection ALICIA Bacteremia History of Present Illness: NAD, being transferred to [facility] Denies any N/V Pain 10/23 Operative Date: 01/17/20 Pre-Operative Diagnosis: Prosthetic graft infection Operation: Redo axillo-bifemoral bypass. Excision infected graft. Findings: Purulent material around prosthetic graft at site of recent surgery extending up to upper abdominal segment. Thoracic portion and fem-fem grafts had no evidence for infection. Implants: 6 mm ringed PTFE Propaten Post-Operative Diagnosis: Same as Pre-op Surgeon: Carlos Stoner Dressing changed by surgical PA- mild sanguinous drainage noted on the dressing - Current Medication List Current Medications: Active Medications Acetaminophen (Tylenol -) 325 mg PO Q6H PRN PRN Reason: PAIN LEVEL 1 - 3 Aspirin (Asa -) 81 mg PO DAILY [facility] Last Admin: 01/18/20 10:27 Dose: 81 mg Documented by: Atorvastatin Calcium (Lipitor -) 40 mg PO [facility] Last Admin: 01/17/20 21:53 Dose: 40 mg Documented by: Chlorhexidine Gluconate (Hibiclens For Decolonization -) 1 applic TP [facility] Last Admin: 01/17/20 21:53 Dose: 1 applic Documented by: Clopidogrel Bisulfate (Plavix -) 75 mg PO DAILY [facility] Last Admin: 01/18/20 10:27 Dose: 75 mg Documented by: Enoxaparin Sodium (Lovenox -) 100 mg SQ BID [facility] Last Admin: 01/18/20 10:27 Dose: 100 mg Documented by: Gabapentin (Neurontin -) 300 mg PO BID [facility] Last Admin: 01/18/20 10:27 Dose: 300 mg Documented by: Guaifenesin/Codeine Phosphate (Robitussin Ac -) 5 ml PO TID PRN PRN Reason: COUGH Cefazolin Sodium/Dextrose (Ancef 2 Gm Premixed Ivpb -) 2 gm in 50 mls @ 100 mls/hr IVPB Q8H-IV [facility] Last Admin: 01/18/20 10:27 Dose: 100 mls/hr Documented by: Vancomycin HCl (Vancomycin (Pre-Docked)) 1,000 mg in 250 mls @ 166.667 mls/hr IVPB BID@0700,1900 [facility]; Protocol Last Admin: 01/18/20 06:52 Dose: 166.667 mls/hr Documented by: Metronidazole (Flagyl -) 500 mg PO TID [facility] Last Admin: 01/18/20 06:58 Dose: 500 mg Documented by: Mupirocin (Bactroban Ointment (For Decolonization) -) 1 applic NS BID [facility] Stop: 01/22/20 21:59 Last Admin: 01/18/20 10:29 Dose: 1 applic Documented by: Ondansetron HCl (Zofran Injection) 4 mg IVPUSH Q6H PRN PRN Reason: NAUSEA AND/OR VOMITING Oxycodone HCl (Roxicodone -) 10 mg PO Q4H PRN PRN Reason: PAIN LEVEL 7-10 Stop: 01/18/20 17:56 Oxycodone HCl (Roxicodone -) 5 mg PO Q4H PRN PRN Reason: PAIN LEVEL 4-6 Pantoprazole Sodium (Protonix -) 40 mg PO DAILY [facility] Last Admin: 01/18/20 10:27 Dose: 40 mg Documented by: Polyethylene Glycol (Miralax (For Daily Use) -) 17 gm PO DAILY PRN PRN Reason: CONSTIPATION Promethazine HCl (Phenergan Injection -) 12.5 mg IVPUSH Q6H PRN PRN Reason: NAUSEA-FOR RESCUE AFTER 15 MIN - Objective Vital Signs: Vital Signs Temperature 98 F 01/18/20 14:00 Pulse Rate 88 01/18/20 14:00 Respiratory Rate 20 01/18/20 14:00 Blood Pressure 104/54 L 01/18/20 14:00 O2 Sat by Pulse Oximetry (%) 99 01/18/20 14:00 Constitutional: Yes: Well Nourished, No Distress, Calm Cardiovascular: Yes: Regular Rate and Rhythm Respiratory: Yes: Regular, CTA Bilaterally Gastrointestinal: Yes: Normal Bowel Sounds, Soft Genitourinary: Yes: WNL Musculoskeletal: Yes: Muscle Weakness Extremities: Yes: WNL Edema: No Peripheral Pulses WNL: Yes Wound/Incision: Yes: Dressing Dry and Intact (Right groin) Neurological: Yes: Alert, Oriented Psychiatric: Yes: Alert, Oriented Labs: CBC, BMP 01/18/20 05:20 01/18/20 05:20 INR, PTT INR 1.26 (0.83-1.09) H 01/14/20 19:45 Problem List - Problems (1) ALICIA (acute kidney injury) Assessment/Plan: -resolved Problems reviewed: Yes Code(s): N17.9 - ACUTE KIDNEY FAILURE, UNSPECIFIED (2) Post-operative infection Assessment/Plan: -ID consult on board -IV Vanco+ Cefazolin Microbiology 01/17/20 14:15 Chest Gram Stain - Final 01/14/20 06:45 Blood - Peripheral Venous Blood Culture - Preliminary NO GROWTH OBTAINED AFTER 96 HOURS, INCUBATION TO CONTINUE FOR 1 DAYS. 01/14/20 06:40 Blood - Peripheral Venous Blood Culture - Final Staphylococcus Aureus 01/11/20 05:58 Blood - Peripheral Venous Blood Culture - Final NO GROWTH AFTER 5 DAYS INCUBATION 01/11/20 05:52 Blood - Peripheral Venous Blood Culture - Final NO GROWTH AFTER 5 DAYS INCUBATION 01/09/20 10:10 Thigh - Right Gram Stain - Final 01/09/20 10:10 Thigh - Right Wound Culture - Final Staphylococcus Aureus Finegoldia Magna 01/09/20 09:40 Blood - Peripheral Venous Blood Culture - Final Staphylococcus Latex Coag Pos 01/09/20 09:40 Blood - Peripheral Venous Blood Culture - Final Staphylococcus Aureus 01/09/20 11:50 Urine - Urine Clean Catch Urine Culture - Final NO GROWTH OBTAINED -febrile earlier -leukocytosis improved Problems reviewed: Yes Code(s): T81.40XA - INFECTION FOLLOWING A PROCEDURE, UNSPECIFIED, INIT Qualifiers: Encounter type: initial encounter Postoperative infection type: unspecified type Qualified Code(s): T81.40XA - Infection following a procedure, unspecified, initial encounter (3) Staphylococcus aureus bacteremia with sepsis Assessment/Plan: as above Problems reviewed: Yes Code(s): A41.01 - SEPSIS DUE TO METHICILLIN SUSCEPTIBLE STAPHYLOCOCCUS AUREUS (4) Arterial occlusion, lower extremity Assessment/Plan: Operative Date: 01/17/20 Pre-Operative Diagnosis: Prosthetic graft infection Operation: Redo axillo-bifemoral bypass. Excision infected graft. Findings: Purulent material around prosthetic graft at site of recent surgery extending up to upper abdominal segment. Thoracic portion and fem-fem grafts had no evidence for infection. Implants: 6 mm ringed PTFE Propaten Post-Operative Diagnosis: Same as Pre-op Surgeon: Carlos Stoner Problems reviewed: Yes Code(s): I70.209 - UNSP ATHSCL [place] ARTERIES OF EXTREMITIES, UNSP EXTREMITY (5) HLD (hyperlipidemia) Assessment/Plan: -HDL at 9 -LDL at 35 -Decrease atorvastatin to 40 mg po HS Problems reviewed: Yes Code(s): E78.5 - HYPERLIPIDEMIA, UNSPECIFIED Qualifiers: Hyperlipidemia type: pure hypercholesterolemia Qualified Code(s): E78.00 - Pure hypercholesterolemia, unspecified; E78.0 - Pure hypercholesterolemia (6) Diarrhea Assessment/Plan: -resolved Problems reviewed: Yes Code(s): R19.7 - DIARRHEA, UNSPECIFIED Assessment/Plan See problem list Physical therapy
[2020-01-18] MEDS ORDERED: ONDANSETRON 4 MG/2 ML VIAL IVPUSH PRN (16:02)
[2020-01-18] MEDS ORDERED: PROMETHAZINE HCL 25 MG/1 ML VIAL IVPUSH PRN (16:02)
[2020-01-18] MEDS ORDERED: guaiFENesin/CODEINE 5 ML UNIT-DOSE CUPS PO PRN (16:02)
--- NOTE | 2020-01-18 20:39 | PN ---
Progress Note, Physician History of Present Illness: POST OP IN ICU AWAKE, ALERT IN BED NO C/O PAIN AT PRESENT LOW GRADE TEMP WBC IMPROVED WNL BC 8/3 NO GROWTH - Current Medication List Current Medications: Active Medications Acetaminophen (Tylenol -) 325 mg PO Q6H PRN PRN Reason: PAIN LEVEL 1 - 3 Aspirin (Asa -) 81 mg PO DAILY [facility] Atorvastatin Calcium (Lipitor -) 40 mg PO HS [facility] Chlorhexidine Gluconate (Hibiclens For Decolonization -) 1 applic TP HS [facility] Clopidogrel Bisulfate (Plavix -) 75 mg PO DAILY [facility] Enoxaparin Sodium (Lovenox -) 100 mg SQ BID [facility] Gabapentin (Neurontin -) 300 mg PO BID [facility] Guaifenesin/Codeine Phosphate (Robitussin Ac -) 5 ml PO TID PRN PRN Reason: COUGH Cefazolin Sodium/Dextrose (Ancef 2 Gm Premixed Ivpb -) 2 gm in 50 mls @ 100 mls/hr IVPB Q8H-IV [facility] Last Admin: 01/18/20 17:29 Dose: 100 mls/hr Documented by: Vancomycin HCl (Vancomycin (Pre-Docked)) 1,000 mg in 250 mls @ 166.667 mls/hr IVPB BID@0700,1900 [facility]; Protocol Last Admin: 01/18/20 20:35 Dose: 166.667 mls/hr Documented by: Metronidazole (Flagyl -) 500 mg PO TID [facility] Mupirocin (Bactroban Ointment (For Decolonization) -) 1 applic NS BID [facility] Stop: 01/22/20 21:59 Ondansetron HCl (Zofran Injection) 4 mg IVPUSH Q6H PRN PRN Reason: NAUSEA AND/OR VOMITING Oxycodone HCl (Roxicodone -) 5 mg PO Q4H PRN PRN Reason: PAIN LEVEL 4-6 Pantoprazole Sodium (Protonix -) 40 mg PO DAILY [facility] Polyethylene Glycol (Miralax (For Daily Use) -) 17 gm PO DAILY PRN PRN Reason: CONSTIPATION Promethazine HCl (Phenergan Injection -) 12.5 mg IVPUSH Q6H PRN PRN Reason: NAUSEA-FOR RESCUE AFTER 15 MIN - Objective Vital Signs: Vital Signs Temperature 98.8 F 01/18/20 17:20 Pulse Rate 85 01/18/20 17:20 Respiratory Rate 01/18/20 17:20 Blood Pressure 89/53 L 01/18/20 17:20 O2 Sat by Pulse Oximetry (%) 93 L 01/18/20 17:20 Constitutional: Yes: No Distress Eyes: Yes: Conjunctiva Clear Cardiovascular: Yes: Regular Rate and Rhythm, S1, S2 Respiratory: Yes: CTA Bilaterally Gastrointestinal: Yes: Normal Bowel Sounds, Soft, Other (DRESSING IN PLACE R GROIN) Labs: CBC, BMP 01/18/20 05:20 01/18/20 05:20 INR, PTT INR 1.26 (0.83-1.09) H 01/14/20 19:45 Assessment/Plan STAPH BACTEREMIA SECONDARY TO SKIN SOURCE WOUND INFECTION / INFECTED GRAFT FEVER/ LEUKOCYTOSIS IMPROVED COVID -19 NEGATIVE THROMBOCYTOPENIA PCN ALLERGY REPEAT BC 01/16 (-) CONTINUE CEFAZOLIN 2GM Q8H /VANCOMYCIN VANCOMYCIN LEVEL
[2020-01-18] MEDS ORDERED: PT OWN MED DRAWER 7, Y5N ONE (20:48)
[2020-01-18] MEDS: CHLORHEXIDINE GLUCONATE 4% CLEANSER FOR DECOLONIZATION TP SCH (21:41)
[2020-01-18] MEDS: ENOXAPARIN NA (PORCINE) 100 MG/1 ML DISP.SYRIN SQ SCH (21:46)
[2020-01-18] MEDS: ATORVASTATIN CA 40 MG TABLET (FP) PO SCH (21:46)
[2020-01-18] MEDS ORDERED: SENNOSIDES 8.6MG TABLET (FP) PO PRN (22:00)
[2020-01-18] MEDS: oxyCODONE HCL 5 MG TABLET PO PRN (23:39)
[2020-01-18] MEDS ORDERED: ACETAMINOPHEN 325 MG TABLET (FP) PO PRN (23:43)
[2020-01-19] MEDS ORDERED: ACETAMINOPHEN 325 MG TABLET (FP) PO PRN (01:00)
[2020-01-19] MEDS: CEFAZOLIN 2 GM/D5W 2 GM/50 ML ML IVPB SCH ×3 (01:47→17:41)
[2020-01-19] MEDS: metroNIDAZOLE 500 MG TABLET PO SCH ×3 (06:41→21:50)
[2020-01-19] MEDS ORDERED: PT OWN MED DRAWER 7, Y5N ONE ×5 (06:52→21:43)
[2020-01-19] MEDS: VANCOMYCIN 1 GRAM (PRE-DOCKED) 1,000 MG/250 ML BAG IVPB SCH ×2 (07:50→18:28)
[2020-01-19 08:03] LABS: BASO % 0.7 % (0-2.0); EOS % 0.4 % (0-4.5); HEMATOCRIT 26.8 % (35.4-49); HEMOGLOBIN 8.9 GM/dL (11.7-16.9); LYMPH % 23.5 % (8-40); MCH 30.3 pg (25.7-33.7); MCHC 33.3 g/dl (32.0-35.9); MEAN CELL VOLUME 91.3 fl (80-96); MEAN PLT VOLUME 8.2 fl (7.5-11.1); MONO % 6.6 % (3.8-10.2); NEUT % 68.8 % (42.8-82.8); PLATELET COUNT 395 K/MM3 (134-434); RBC 2.94 M/mm3 (4.00-5.60); RDW 16.6 % (11.9-15.9)
[2020-01-19 08:33] LABS: BLOOD UREA NITROGEN 9.1 mg/dL (7-18); CALCIUM 7.8 mg/dL (8.5-10.1); CREATININE 0.7 mg/dL (0.55-1.3); POTASSIUM 3.5 mmol/L (3.5-5.1)
[2020-01-19] MEDS: PANTOPRAZOLE 40 MG TABLET PO SCH (09:34)
[2020-01-19] MEDS: GABAPENTIN 300 MG CAPSULE PO SCH ×2 (09:34→21:49)
[2020-01-19] MEDS: ASPIRIN 81 MG CHEWABLE TABLETS PO SCH (09:34)
[2020-01-19] MEDS: CLOPIDOGREL BISULFATE 75 MG TABLET (FP) PO SCH (09:35)
[2020-01-19] MEDS: MUPIROCIN 2% TOPICAL OINTMENT FOR DECOLONIZATION NS SCH ×2 (09:36→21:41)
[2020-01-19] MEDS: ENOXAPARIN NA (PORCINE) 100 MG/1 ML DISP.SYRIN SQ SCH ×2 (09:36→21:50)
--- NOTE | 2020-01-19 10:27 | PN ---
Progress Note, Physician Chief Complaint: Right Axillo-femoral and femorofemoral bypass Right fem-tibial graft with multiple episodes of graft thrombosis Right groin post op infection ALICIA Bacteremia History of Present Illness: NAD, Denies any N/V Pain improved with pain meds Operative Date: 01/17/20 Pre-Operative Diagnosis: Prosthetic graft infection Operation: Redo axillo-bifemoral bypass. Excision infected graft. Findings: Purulent material around prosthetic graft at site of recent surgery extending up to upper abdominal segment. Thoracic portion and fem-fem grafts had no evidence for infection. Implants: 6 mm ringed PTFE Propaten Post-Operative Diagnosis: Same as Pre-op Surgeon: Carlos Stoner - Current Medication List Current Medications: Active Medications Acetaminophen (Tylenol -) 325 mg PO Q6H PRN PRN Reason: PAIN LEVEL 1 - 3 Last Admin: 01/18/20 23:44 Dose: 325 mg Documented by: Aspirin (Asa -) 81 mg PO DAILY [facility] Last Admin: 01/19/20 09:34 Dose: 81 mg Documented by: Atorvastatin Calcium (Lipitor -) 40 mg PO [facility] Last Admin: 01/18/20 21:46 Dose: 40 mg Documented by: Chlorhexidine Gluconate (Hibiclens For Decolonization -) 1 applic TP [facility] Last Admin: 01/18/20 21:41 Dose: Not Given Documented by: Clopidogrel Bisulfate (Plavix -) 75 mg PO DAILY [facility] Last Admin: 01/19/20 09:35 Dose: 75 mg Documented by: Enoxaparin Sodium (Lovenox -) 100 mg SQ BID [facility] Last Admin: 01/19/20 09:36 Dose: 100 mg Documented by: Gabapentin (Neurontin -) 300 mg PO BID [facility] Last Admin: 01/19/20 09:34 Dose: 300 mg Documented by: Guaifenesin/Codeine Phosphate (Robitussin Ac -) 5 ml PO TID PRN PRN Reason: COUGH Cefazolin Sodium/Dextrose (Ancef 2 Gm Premixed Ivpb -) 2 gm in 50 mls @ 100 mls/hr IVPB Q8H-IV [facility] Last Admin: 01/19/20 09:35 Dose: 100 mls/hr Documented by: Vancomycin HCl (Vancomycin (Pre-Docked)) 1,000 mg in 250 mls @ 166.667 mls/hr IVPB BID@0700,1900 [facility]; Protocol Last Admin: 01/19/20 07:50 Dose: 166.667 mls/hr Documented by: Metronidazole (Flagyl -) 500 mg PO TID [facility] Last Admin: 01/19/20 06:41 Dose: 500 mg Documented by: Mupirocin (Bactroban Ointment (For Decolonization) -) 1 applic NS BID [facility] Stop: 01/22/20 21:59 Last Admin: 01/19/20 09:36 Dose: Not Given Documented by: Ondansetron HCl (Zofran Injection) 4 mg IVPUSH Q6H PRN PRN Reason: NAUSEA AND/OR VOMITING Oxycodone HCl (Roxicodone -) 5 mg PO Q4H PRN PRN Reason: PAIN LEVEL 4-6 Last Admin: 01/18/20 23:39 Dose: 5 mg Documented by: Pantoprazole Sodium (Protonix -) 40 mg PO DAILY [facility] Last Admin: 01/19/20 09:34 Dose: 40 mg Documented by: Polyethylene Glycol (Miralax (For Daily Use) -) 17 gm PO DAILY PRN PRN Reason: CONSTIPATION Promethazine HCl (Phenergan Injection -) 12.5 mg IVPUSH Q6H PRN PRN Reason: NAUSEA-FOR RESCUE AFTER 15 MIN - Objective Vital Signs: Vital Signs Temperature 97.9 F 01/18/20 21:00 Pulse Rate 86 01/18/20 21:00 Respiratory Rate 18 01/18/20 21:00 Blood Pressure 109/51 L 01/18/20 21:00 O2 Sat by Pulse Oximetry (%) 93 L 01/18/20 21:00 Constitutional: Yes: Well Nourished, No Distress, Calm Cardiovascular: Yes: Regular Rate and Rhythm Respiratory: Yes: Regular, CTA Bilaterally Gastrointestinal: Yes: Normal Bowel Sounds, Soft Genitourinary: Yes: WNL Musculoskeletal: Yes: Muscle Weakness Extremities: Yes: WNL Edema: Yes Edema: RLE: Trace Peripheral Pulses WNL: Yes Integumentary: Yes: Incision (RLQ, RUQ) Wound/Incision: Yes: Dressing Removed, Draining (Mild Serosanguinous fluid), Other (packing not changed as per Dr Martins. Dressing changed today.) Neurological: Yes: Alert, Oriented Psychiatric: Yes: Alert, Oriented Labs: CBC, BMP 01/19/20 06:48 01/19/20 06:48 INR, PTT INR 1.26 (0.83-1.09) H 01/14/20 19:45 Problem List - Problems (1) ALICIA (acute kidney injury) Assessment/Plan: -resolved -Nephrology on board Problems reviewed: Yes Code(s): N17.9 - ACUTE KIDNEY FAILURE, UNSPECIFIED (2) Post-operative infection Assessment/Plan: -ID consult on board -IV Vanco+ Cefazolin---> will need PICC line Microbiology 01/17/20 14:15 Chest Gram Stain - Final 01/14/20 06:45 Blood - Peripheral Venous Blood Culture - Preliminary NO GROWTH OBTAINED AFTER 96 HOURS, INCUBATION TO CONTINUE FOR 1 DAYS. 01/14/20 06:40 Blood - Peripheral Venous Blood Culture - Final Staphylococcus Aureus 01/11/20 05:58 Blood - Peripheral Venous Blood Culture - Final NO GROWTH AFTER 5 DAYS INCUBATION 01/11/20 05:52 Blood - Peripheral Venous Blood Culture - Final NO GROWTH AFTER 5 DAYS INCUBATION 01/09/20 10:10 Thigh - Right Gram Stain - Final 01/09/20 10:10 Thigh - Right Wound Culture - Final Staphylococcus Aureus Finegoldia Magna 01/09/20 09:40 Blood - Peripheral Venous Blood Culture - Final Staphylococcus Latex Coag Pos 01/09/20 09:40 Blood - Peripheral Venous Blood Culture - Final Staphylococcus Aureus 01/09/20 11:50 Urine - Urine Clean Catch Urine Culture - Final NO GROWTH OBTAINED -afebrile -leukocytosis improved Problems reviewed: Yes Code(s): T81.40XA - INFECTION FOLLOWING A PROCEDURE, UNSPECIFIED, INIT Qualifiers: Encounter type: initial encounter Postoperative infection type: unspecified type Qualified Code(s): T81.40XA - Infection following a procedure, unspecified, initial encounter (3) Staphylococcus aureus bacteremia with sepsis Assessment/Plan: as above Problems reviewed: Yes Code(s): A41.01 - SEPSIS DUE TO METHICILLIN SUSCEPTIBLE STAPHYLOCOCCUS AUREUS (4) Arterial occlusion, lower extremity Assessment/Plan: Operative Date: 01/17/20 Pre-Operative Diagnosis: Prosthetic graft infection Operation: Redo axillo-bifemoral bypass. Excision infected graft. Findings: Purulent material around prosthetic graft at site of recent surgery extending up to upper abdominal segment. Thoracic portion and fem-fem grafts had no evidence for infection. Implants: 6 mm ringed PTFE Propaten Post-Operative Diagnosis: Same as Pre-op Surgeon: Carlos Stoner -Seen by Vascular surgery today -Dressing reinforced Problems reviewed: Yes Code(s): I70.209 - UNSP ATHSCL [facility] [place] ARTERIES OF EXTREMITIES, UNSP EXTREMITY (5) HLD (hyperlipidemia) Assessment/Plan: -HDL at 9 -LDL at 35 -Decrease atorvastatin to 40 mg po HS Problems reviewed: Yes Code(s): E78.5 - HYPERLIPIDEMIA, UNSPECIFIED Qualifiers: Hyperlipidemia type: pure hypercholesterolemia Qualified Code(s): E78.00 - Pure hypercholesterolemia, unspecified; E78.0 - Pure hypercholesterolemia (6) Diarrhea Assessment/Plan: -resolved -Last BM 4 days ago -Restart Miralax daily to avoid OIC Problems reviewed: Yes Code(s): R19.7 - DIARRHEA, UNSPECIFIED Assessment/Plan See problem list Physical therapy
--- NOTE | 2020-01-19 11:15 | PN ---
Progress Note (short form) - Note Progress Note: Surgery: Pt seen and examined this am. States that he is feeling well, having some pain. Vital Signs Period Temp Pulse Resp BP Sys/White Pulse Ox Last 24 Hr 97.9 F-100.2 F 79-88 18-24 89-109/50-55 93-99 GEN: A&0x3, NAD ABD: soft, non-distended, inc tenderness. All incision which are closed with levy are clean and intact with dressing. Some serosangreous drainage over incisions with packing LE: warm to touch. CBC, BMP 01/19/20 06:48 01/19/20 06:48 OR culture: NGTD A/P: 59 yo male s/p Redo axillo-bifemoral bypass. Excision infected graft. Lovenox 100mg BID this am as well as his aspirin and plavix PT consult 01/18 for mobilization may be OOB to chair Oral pain medications as needed, stool softners prn IV abx, ID follow up for correction IV abx/PICC line insertion Local wound care, change outer dressing daily with saturation. Change packed wounds QOD with iodoform. Regular diet D/w Dr. Stoner
[2020-01-19] MEDS ORDERED: POLYETHYLENE GLYCOL 3350 119 GM BTL PO SCH (11:43)
--- NOTE | 2020-01-19 12:06 | PN ---
Progress Note (short form) - Note Progress Note: Pain is getting better. No shortness of breath or chest pain. No acute events overnight. OBJECTIVE: Intake & Output 01/16/20 01/17/20 01/18/20 01/19/20 23:59 23:59 23:59 23:59 Intake Total 1300 2710 2200 50 Output Total 3531 131 1952 300 Balance -300 1760 700 -250 Weight 170 lb 182 lb 14.4 oz Last Vital Signs Temp Pulse Resp BP Pulse Ox 97.9 F 86 18 109/51 L 93 L 01/18/20 21:00 01/18/20 21:00 01/18/20 21:00 01/18/20 21:00 01/18/20 21:00 Active Medications Acetaminophen (Tylenol -) 325 mg PO Q6H PRN PRN Reason: PAIN LEVEL 1 - 3 Last Admin: 01/18/20 23:44 Dose: 325 mg Documented by: Aspirin (Asa -) 81 mg PO DAILY [facility] Last Admin: 01/19/20 09:34 Dose: 81 mg Documented by: Atorvastatin Calcium (Lipitor -) 40 mg PO [facility] Last Admin: 01/18/20 21:46 Dose: 40 mg Documented by: Chlorhexidine Gluconate (Hibiclens For Decolonization -) 1 applic TP [facility] Last Admin: 01/18/20 21:41 Dose: Not Given Documented by: Clopidogrel Bisulfate (Plavix -) 75 mg PO DAILY [facility] Last Admin: 01/19/20 09:35 Dose: 75 mg Documented by: Enoxaparin Sodium (Lovenox -) 100 mg SQ BID [facility] Last Admin: 01/19/20 09:36 Dose: 100 mg Documented by: Gabapentin (Neurontin -) 300 mg PO BID [facility] Last Admin: 01/19/20 09:34 Dose: 300 mg Documented by: Guaifenesin/Codeine Phosphate (Robitussin Ac -) 5 ml PO TID PRN PRN Reason: COUGH Cefazolin Sodium/Dextrose (Ancef 2 Gm Premixed Ivpb -) 2 gm in 50 mls @ 100 mls/hr IVPB Q8H-IV [facility] Last Admin: 01/19/20 09:35 Dose: 100 mls/hr Documented by: Vancomycin HCl (Vancomycin (Pre-Docked)) 1,000 mg in 250 mls @ 166.667 mls/hr IVPB BID@0700,1900 [facility]; Protocol Last Admin: 01/19/20 07:50 Dose: 166.667 mls/hr Documented by: Metronidazole (Flagyl -) 500 mg PO TID [facility] Last Admin: 01/19/20 06:41 Dose: 500 mg Documented by: Mupirocin (Bactroban Ointment (For Decolonization) -) 1 applic NS BID [facility] Stop: 01/22/20 21:59 Last Admin: 01/19/20 09:36 Dose: Not Given Documented by: Ondansetron HCl (Zofran Injection) 4 mg IVPUSH Q6H PRN PRN Reason: NAUSEA AND/OR VOMITING Oxycodone HCl (Roxicodone -) 5 mg PO Q4H PRN PRN Reason: PAIN LEVEL 4-6 Last Admin: 01/18/20 23:39 Dose: 5 mg Documented by: Pantoprazole Sodium (Protonix -) 40 mg PO DAILY [facility] Last Admin: 01/19/20 09:34 Dose: 40 mg Documented by: Polyethylene Glycol (Miralax (For Daily Use) -) 17 gm PO DAILY [facility] Promethazine HCl (Phenergan Injection -) 12.5 mg IVPUSH Q6H PRN PRN Reason: NAUSEA-FOR RESCUE AFTER 15 MIN Gen: NAD at rest Heart: RRR Lung: decreased breath sounds at the bases Abd: soft, dressings dry Ext: no edema, warm Laboratory Results - last 24 hr 01/14/20 01/19/20 01/19/20 12:45 06:48 06:48 WBC 10.0 RBC 2.94 L Hgb 8.9 L Hct 26.8 L MCV 91.3 MCH 30.3 MCHC 33.3 RDW 16.6 H Plt Count 395 D MPV 8.2 Absolute Neuts (auto) 6.9 Neutrophils % 68.8 Lymphocytes % 23.5 D Monocytes % 6.6 Eosinophils % 0.4 Basophils % 0.7 Nucleated RBC % 0 Sodium 139 Potassium 3.5 Chloride 104 Carbon Dioxide 27 Anion Gap 9 BUN 9.1 Creatinine 0.7 Est GFR (CKD-EPI)AfAm 118.88 Est GFR (CKD-EPI)NonAf 102.57 Random Glucose 112 H Calcium 7.8 L Crossmatch See Detail ASSESSMENT AND PLAN: Staph Bacteremia/Infected Graft s/p Redo Axillo-Bifemoral Bypass Wound Infection Sepsis Acute Kidney Injury resolved Hyponatremia PAD HTN Hyperlipidemia Anemia - Pain control - continue antibiotics - monitor urine output, creatinine - ASA, plavix - continue anticoagulation - wound care - O2 to keep Spo2 >90% - DVT prophylaxis Dr Felipe
--- NOTE | 2020-01-19 12:16 | PN ---
Progress Note, Physician Chief Complaint: s/p redo bifem bypass under general anesthesia History of Present Illness: post op day two - Current Medication List Current Medications: Active Medications Acetaminophen (Tylenol -) 325 mg PO Q6H PRN PRN Reason: PAIN LEVEL 1 - 3 Last Admin: 01/18/20 23:44 Dose: 325 mg Documented by: Aspirin (Asa -) 81 mg PO DAILY [facility] Last Admin: 01/19/20 09:34 Dose: 81 mg Documented by: Atorvastatin Calcium (Lipitor -) [address] [facility] Last Admin: 01/18/20 21:46 Dose: 40 mg Documented by: Chlorhexidine Gluconate (Hibiclens For Decolonization -) [address] [facility] Last Admin: 01/18/20 21:41 Dose: Not Given Documented by: Clopidogrel Bisulfate (Plavix -) 75 mg PO DAILY [facility] Last Admin: 01/19/20 09:35 Dose: 75 mg Documented by: Enoxaparin Sodium (Lovenox -) 100 mg SQ BID [facility] Last Admin: 01/19/20 09:36 Dose: 100 mg Documented by: Gabapentin (Neurontin -) 300 mg PO BID [facility] Last Admin: 01/19/20 09:34 Dose: 300 mg Documented by: Guaifenesin/Codeine Phosphate (Robitussin Ac -) 5 ml PO TID PRN PRN Reason: COUGH Cefazolin Sodium/Dextrose (Ancef 2 Gm Premixed Ivpb -) 2 gm in 50 mls @ 100 mls/hr IVPB Q8H-IV [facility] Last Admin: 01/19/20 09:35 Dose: 100 mls/hr Documented by: Vancomycin HCl (Vancomycin (Pre-Docked)) 1,000 mg in 250 mls @ 166.667 mls/hr IVPB BID@0700,1900 [facility]; Protocol Last Admin: 01/19/20 07:50 Dose: 166.667 mls/hr Documented by: Metronidazole (Flagyl -) 500 mg PO TID [facility] Last Admin: 01/19/20 06:41 Dose: 500 mg Documented by: Mupirocin (Bactroban Ointment (For Decolonization) -) 1 applic NS BID [facility] Stop: 01/22/20 21:59 Last Admin: 01/19/20 09:36 Dose: Not Given Documented by: Ondansetron HCl (Zofran Injection) 4 mg IVPUSH Q6H PRN PRN Reason: NAUSEA AND/OR VOMITING Oxycodone HCl (Roxicodone -) 5 mg PO Q4H PRN PRN Reason: PAIN LEVEL 4-6 Last Admin: 01/18/20 23:39 Dose: 5 mg Documented by: Pantoprazole Sodium (Protonix -) 40 mg PO DAILY [facility] Last Admin: 01/19/20 09:34 Dose: 40 mg Documented by: Polyethylene Glycol (Miralax (For Daily Use) -) 17 gm PO DAILY [facility] Promethazine HCl (Phenergan Injection -) 12.5 mg IVPUSH Q6H PRN PRN Reason: NAUSEA-FOR RESCUE AFTER 15 MIN - Objective Vital Signs: Vital Signs Temperature 97.9 F 01/18/20 21:00 Pulse Rate 86 01/18/20 21:00 Respiratory Rate 18 01/18/20 21:00 Blood Pressure 109/51 L 01/18/20 21:00 O2 Sat by Pulse Oximetry (%) 93 L 01/18/20 21:00 Constitutional: Yes: Well Nourished Cardiovascular: Yes: WNL Respiratory: Yes: WNL Gastrointestinal: Yes: WNL Labs: CBC, BMP 01/19/20 06:48 01/19/20 06:48 INR, PTT INR 1.26 (0.83-1.09) H 01/14/20 19:45 Assessment/Plan pain controlled, no adverse anesthetic complications, dept of anesthesiology will sign off care at this time
--- NOTE | 2020-01-19 12:25 | PN ---
Progress Note (short form) - Note Progress Note: cc b/l leg pain s: no chest pain, palps, dizziness, dyspnea Current Medications Generic Name Dose Route Start Last Admin Trade Name Freq PRN Reason Stop Dose Admin Acetaminophen 325 mg 01/18/20 23:43 01/18/20 23:44 Tylenol - PO 325 mg Q6H PRN Administration PAIN LEVEL 1 - 3 Aspirin 81 mg 01/19/20 10:00 01/19/20 09:34 Asa - PO 81 mg DAILY [facility] Administration Atorvastatin Calcium 40 mg 01/18/20 22:00 01/18/20 21:46 Lipitor - PO 40 mg HS [facility] Administration Chlorhexidine Gluconate 1 applic 01/18/20 22:00 01/18/20 21:41 Hibiclens For Decolonization - TP Not Given HS [facility] Clopidogrel Bisulfate 75 mg 01/19/20 10:00 01/19/20 09:35 Plavix - PO 75 mg DAILY [facility] Administration Enoxaparin Sodium 100 mg 01/18/20 22:00 01/19/20 09:36 Lovenox - SQ 100 mg BID [facility] Administration Gabapentin 300 mg 01/18/20 22:00 01/19/20 09:34 Neurontin - PO 300 mg BID [facility] Administration Guaifenesin/Codeine Phosphate 5 ml 01/18/20 16:02 Robitussin Ac - PO TID PRN COUGH Cefazolin Sodium/Dextrose 2 gm in 50 mls @ 100 mls/hr 01/18/20 18:00 01/19/20 09:35 Ancef 2 Gm Premixed Ivpb - IVPB 100 mls/hr Q8H-IV [facility] Administration Vancomycin HCl 1,000 mg in 250 mls @ 166.667 mls/hr 01/18/20 19:00 01/19/20 07:50 Vancomycin (Pre-Docked) IVPB 166.667 mls/hr BID@0700,1900 [facility] Administration Protocol Metronidazole 500 mg 01/18/20 22:00 01/19/20 06:41 Flagyl - PO 500 mg TID [facility] Administration Mupirocin 1 applic 01/18/20 22:00 01/19/20 09:36 Bactroban Ointment (For Decolonization) - NS 01/22/20 21:59 Not Given BID [facility] Ondansetron HCl 4 mg 01/18/20 16:02 Zofran Injection IVPUSH Q6H PRN NAUSEA AND/OR VOMITING Oxycodone HCl 5 mg 01/18/20 16:02 01/18/20 23:39 Roxicodone - PO 5 mg Q4H PRN Administration PAIN LEVEL 4-6 Pantoprazole Sodium 40 mg 01/19/20 10:00 01/19/20 09:34 Protonix - PO 40 mg DAILY [facility] Administration Polyethylene Glycol 17 gm 01/19/20 11:43 Miralax (For Daily Use) - PO DAILY [facility] Promethazine HCl 12.5 mg 01/18/20 16:02 Phenergan Injection - IVPUSH Q6H PRN NAUSEA-FOR RESCUE AFTER 15 MIN Vital Signs Period Temp Pulse Resp BP Sys/White Pulse Ox Last 24 Hr 97.9 F-100.2 F 85-88 18-20 89-109/50-54 93-99 nad no jvd rrr s1s2 no mrg cta bl nl eff aaox3 no le edema no jaundice diaphoresis abd nt nd pos bs not agitated CT chest: mild chronic lung dz with no acute pathology ecg: sr, nl intervals, no ischemic changes mibi 11/2016: no ischemia, lvef 80 echo 12/2019 nl LV function, impaired relaxation, nl RV, mild MR, tr to mild TR, mildly sclerotic AV no dysfunction a/p: 59 m hx htn, pad here with b/l leg pain, fever, bacteremia fever, wound infection, staph bacteremia, sepsis: - s/p redo axillo-fem bypass and removal of infected graft - no vegetation on echo - manage per vascular pad, history of graft thrombosis: - cont plavix, aspirin, lovenox per vascular htn: -not on meds at home -soft BPs here, monitor ALICIA: - likely prerenal, improved with IVF - renal following Prolonged QT on tele: -stable -Check K+/Mg2+ (keep K> 4 and Mg > 2) -Avoid/ minimize QT prolonging drugs
--- NOTE | 2020-01-19 13:11 | OP ---
DATE OF OPERATION: 01/17/2020 SURGEON: Carlos Stoner MD [place] [employer] DAMAGE CONTROL AGENT: JUSTIN Dos Santos PROCEDURE: 1. Redo axillobifemoral bypass. 2. Excision of infected prosthetic graft. PREOPERATIVE DIAGNOSIS: Prosthetic graft infection. POSTOPERATIVE DIAGNOSIS: Prosthetic graft infection. ANESTHESIA: General. ANESTHESIOLOGIST: CRISTA Swanson OPERATIVE FINDINGS: There was purulent material surrounding the right axillobifemoral bypass graft in the right groin and also on the upper abdominal wall section. The graft at the level of the lower chest was free of obvious infection as was the area of the cross femoral graft in the midline above the pubic symphysis. OPERATIVE PROCEDURE: Following routine patient identification, general anesthesia was induced. A Raymundo catheter was placed. The chest, abdomen, both groins and right lower extremity were prepped with ChloraPrep. Timeout was performed. Skin incision was made in the right medial thigh over the femoral distal bypass which had been marked preoperatively with duplex imaging. The subcutaneous tissues were divided with cautery. The vein graft was mobilized from the surrounding tissues and encircled with vessel loops. It was pulsatile. The wound was packed with bacitracin-soaked gauze. A 2nd incision was made over the femoral-femoral crossover graft in the midline. There was no evidence of purulent material around the graft at this level. It was mobilized and secured with vessel loops. The wound was packed with bacitracin-soaked gauze. A 3rd incision was then made over the graft in the upper abdominal wall on the right side. Upon dissecting down to the graft a pocket of purulent fluid was identified and drained. This wound was then covered with bacitracin-soaked gauze and an occlusive dressing. The instruments were changed. An incision was made higher up over the [id number] bypass graft on the lower chest wall. The graft at this level appeared well incorporated without evidence of pus. The wound was cultured. The graft was mobilized and secured with vessel loops. Metal tunneler was then advanced between the suprapubic incision and the chest incision and a 6-mm ring PTFE graft pulled through the tunnel with care not to twist it. A 2nd tunnel was then made between the suprapubic incision and the thigh incision using a counterincision in the medial groin. These were marked with umbilical tapes. The patient was systemically heparinized. The graft on the chest wall was then occluded with vascular clamps and opened with a longitudinal arteriotomy. The end of the Chambers-Jeffy graft was anastomosed to the side of the old graft with running sutures of 6-0 Prolene. The new graft was occluded with a clamp while the old graft was allowed to backbleed and flush. The suture line was completed and flow in the axillofemoral graft was restored by removal of the clamps to ensure that there was flow into the legs during the procedure. Gelfoam and thrombin were used on the suture lines to control bleeding. The cross femoral graft was then occluded with vascular clamps and transected. The inflow end was oversewn with sutures of 5-0 Prolene. The new graft was then anastomosed end-to-end to the old graft with running sutures of 6-0 Prolene. Grafts were allowed to backbleed and flushed before restoring flow into the left femoral artery. The new section of graft was then occluded with vascular clamps and an incision made in the side of the graft. A 2nd piece of 6-mm Chambers-Jeffy was anastomosed end-to-side to the femoral graft. This was then tunneled through the previously made tunnels to lie into the thigh. Flow was restored into the left leg and Gelfoam applied. Finally the graft in the thigh was clamped and divided. A small piece of stent graft was removed from the distal end. The proximal end was oversewn with 5-0 Prolene. An end-to-end anastomosis was then created between the old and new grafts with 6-0 Prolene. Grafts were allowed to flush and backbleed and flushed with heparin saline. Suture lines were completed and clamps were removed. Evaluation with the Doppler revealed good flow in the right leg down to the posterior tibial artery. All wounds were copiously irrigated with bacitracin solution. Wounds were closed with interrupted suture of 3-0 Vicryl in the subcutaneous tissues and skin levy. All wounds were covered with occlusive dressings. The wounds of the right groin and chest wall were then explored and the grafts mobilized. Portions of graft that were not well incorporated were removed with traction and sharp dissection. Wounds were irrigated and packed with Iodoform gauze. Sterile dressings were applied and the patient was awakened and taken to the recovery room in stable condition. CARLOS STONER M.D. [id number]
--- NOTE | 2020-01-19 14:10 | PN ---
Progress Note, Physician History of Present Illness: AWAKE, ALERT IN BED NO C/O PAIN AT PRESENT AFEBRILE WBC IMPROVED WNL BC 8/ NO GROWTH - Current Medication List Current Medications: Active Medications Acetaminophen (Tylenol -) 325 mg PO Q6H PRN PRN Reason: PAIN LEVEL 1 - 3 Last Admin: 01/18/20 23:44 Dose: 325 mg Documented by: Aspirin (Asa -) 81 mg PO DAILY [facility] Last Admin: 01/19/20 09:34 Dose: 81 mg Documented by: Atorvastatin Calcium (Lipitor -) 40 mg PO HS [facility] Last Admin: 01/18/20 21:46 Dose: 40 mg Documented by: Chlorhexidine Gluconate (Hibiclens For Decolonization -) 1 applic TP [facility] Last Admin: 01/18/20 21:41 Dose: Not Given Documented by: Clopidogrel Bisulfate (Plavix -) 75 mg PO DAILY [facility] Last Admin: 01/19/20 09:35 Dose: 75 mg Documented by: Enoxaparin Sodium (Lovenox -) 100 mg SQ BID [facility] Last Admin: 01/19/20 09:36 Dose: 100 mg Documented by: Gabapentin (Neurontin -) 300 mg PO BID [facility] Last Admin: 01/19/20 09:34 Dose: 300 mg Documented by: Guaifenesin/Codeine Phosphate (Robitussin Ac -) 5 ml PO TID PRN PRN Reason: COUGH Cefazolin Sodium/Dextrose (Ancef 2 Gm Premixed Ivpb -) 2 gm in 50 mls @ 100 mls/hr IVPB Q8H-IV [facility] Last Admin: 01/19/20 09:35 Dose: 100 mls/hr Documented by: Vancomycin HCl (Vancomycin (Pre-Docked)) 1,000 mg in 250 mls @ 166.667 mls/hr IVPB BID@0700,1900 [facility]; Protocol Last Admin: 01/19/20 07:50 Dose: 166.667 mls/hr Documented by: Metronidazole (Flagyl -) 500 mg PO TID [facility] Last Admin: 01/19/20 06:41 Dose: 500 mg Documented by: Mupirocin (Bactroban Ointment (For Decolonization) -) 1 applic NS BID [facility] Stop: 01/22/20 21:59 Last Admin: 01/19/20 09:36 Dose: Not Given Documented by: Ondansetron HCl (Zofran Injection) 4 mg IVPUSH Q6H PRN PRN Reason: NAUSEA AND/OR VOMITING Oxycodone HCl (Roxicodone -) 5 mg PO Q4H PRN PRN Reason: PAIN LEVEL 4-6 Last Admin: 01/18/20 23:39 Dose: 5 mg Documented by: Pantoprazole Sodium (Protonix -) 40 mg PO DAILY [facility] Last Admin: 01/19/20 09:34 Dose: 40 mg Documented by: Polyethylene Glycol (Miralax (For Daily Use) -) 17 gm PO DAILY [facility] Promethazine HCl (Phenergan Injection -) 12.5 mg IVPUSH Q6H PRN PRN Reason: NAUSEA-FOR RESCUE AFTER 15 MIN - Objective Vital Signs: Vital Signs Temperature 97.9 F 01/18/20 21:00 Pulse Rate 86 01/18/20 21:00 Respiratory Rate 18 01/18/20 21:00 Blood Pressure 109/51 L 01/18/20 21:00 O2 Sat by Pulse Oximetry (%) 93 L 01/18/20 21:00 Constitutional: Yes: No Distress Eyes: Yes: Conjunctiva Clear Cardiovascular: Yes: Regular Rate and Rhythm, S1, S2 Respiratory: Yes: CTA Bilaterally Gastrointestinal: Yes: Normal Bowel Sounds, Soft. No: Tenderness Integumentary: Yes: Other (DRESSING IN PLACE R GROIN/ FLANK) Labs: CBC, BMP 01/19/20 06:48 01/19/20 06:48 INR, PTT INR 1.26 (0.83-1.09) H 01/14/20 19:45 Assessment/Plan POST OP REDO AXILLOFEMORAL BYPASS, EXCISION OF INFECTED PROSTHETIC GRAFT MSSA BACTEREMIA WOUND INFECTION / INFECTED GRAFT FEVER/ LEUKOCYTOSIS IMPROVED COVID -19 NEGATIVE THROMBOCYTOPENIA PCN ALLERGY REPEAT BC 01/16 (-) CONTINUE CEFAZOLIN 2GM Q8H /VANCOMYCIN VANCOMYCIN LEVEL
--- NOTE | 2020-01-19 16:35 | PATH ---
Surgical Pathology Report Patient Name: ABIGAIL PERLA Med. Rec. #: [id number] /Age/Gender: 1960 (Age: 59) / M Account: [id number] Location: [facility] MED/SURG Taken: 01/17/2020 Received: 01/18/2020 Reported: 01/19/2020 Physicians: José Briggs M.D. Specimen(s) Received REMOVED GRAFT(INFECTED) Clinical History Sepsis Final Diagnosis REMOVED INFECTED GRAFT, REMOVAL: GRAFT MATERIAL. MACROSCOPIC DIAGNOSIS. Electronically Signed Karishma Arias M.D. Gross Description Received in formalin labeled "removed infected graft," are 4 ontiveros, tubular portions of graft material ranging from 2.5-12.0 cm in length. No soft tissue is present. No sections are submitted, gross only. /01/18/2020 [place]/01/18/2020
--- NOTE | 2020-01-19 17:45 | PN ---
Progress Note, Physician History of Present Illness: Pt seen and examined at bedside. He is awake and alert. He does complain of some lower ext edema. HE denies shortness of breath. - Current Medication List Current Medications: Active Medications Acetaminophen (Tylenol -) 325 mg PO Q6H PRN PRN Reason: PAIN LEVEL 1 - 3 Last Admin: 01/18/20 23:44 Dose: 325 mg Documented by: Aspirin (Asa -) 81 mg PO DAILY [facility] Last Admin: 01/19/20 09:34 Dose: 81 mg Documented by: Atorvastatin Calcium (Lipitor -) 40 mg PO HS [facility] Last Admin: 01/18/20 21:46 Dose: 40 mg Documented by: Chlorhexidine Gluconate (Hibiclens For Decolonization -) 1 applic TP [facility] Last Admin: 01/18/20 21:41 Dose: Not Given Documented by: Clopidogrel Bisulfate (Plavix -) 75 mg PO DAILY [facility] Last Admin: 01/19/20 09:35 Dose: 75 mg Documented by: Enoxaparin Sodium (Lovenox -) 100 mg SQ BID [facility] Last Admin: 01/19/20 09:36 Dose: 100 mg Documented by: Gabapentin (Neurontin -) 300 mg PO BID [facility] Last Admin: 01/19/20 09:34 Dose: 300 mg Documented by: Guaifenesin/Codeine Phosphate (Robitussin Ac -) 5 ml PO TID PRN PRN Reason: COUGH Cefazolin Sodium/Dextrose (Ancef 2 Gm Premixed Ivpb -) 2 gm in 50 mls @ 100 mls/hr IVPB Q8H-IV [facility] Last Admin: 01/19/20 09:35 Dose: 100 mls/hr Documented by: Vancomycin HCl (Vancomycin (Pre-Docked)) 1,000 mg in 250 mls @ 166.667 mls/hr IVPB BID@0700,1900 [facility]; Protocol Last Admin: 01/19/20 07:50 Dose: 166.667 mls/hr Documented by: Metronidazole (Flagyl -) 500 mg PO TID [facility] Last Admin: 01/19/20 14:20 Dose: 500 mg Documented by: Mupirocin (Bactroban Ointment (For Decolonization) -) 1 applic NS BID [facility] Stop: 01/22/20 21:59 Last Admin: 01/19/20 09:36 Dose: Not Given Documented by: Ondansetron HCl (Zofran Injection) 4 mg IVPUSH Q6H PRN PRN Reason: NAUSEA AND/OR VOMITING Oxycodone HCl (Roxicodone -) 5 mg PO Q4H PRN PRN Reason: PAIN LEVEL 4-6 Last Admin: 01/18/20 23:39 Dose: 5 mg Documented by: Pantoprazole Sodium (Protonix -) 40 mg PO DAILY [facility] Last Admin: 01/19/20 09:34 Dose: 40 mg Documented by: Polyethylene Glycol (Miralax (For Daily Use) -) 17 gm PO DAILY [facility] Promethazine HCl (Phenergan Injection -) 12.5 mg IVPUSH Q6H PRN PRN Reason: NAUSEA-FOR RESCUE AFTER 15 MIN - Objective Vital Signs: Vital Signs Temperature 98.5 F 01/19/20 15:12 Pulse Rate 93 H 01/19/20 15:12 Respiratory Rate 18 01/19/20 15:12 Blood Pressure 113/60 01/19/20 15:12 O2 Sat by Pulse Oximetry (%) 95 01/19/20 15:12 Constitutional: Yes: Calm Eyes: Yes: Conjunctiva Clear HENT: Yes: Atraumatic Neck: Yes: Supple Cardiovascular: Yes: S1, S2 Respiratory: Yes: CTA Bilaterally Gastrointestinal: Yes: Soft Genitourinary: Yes: WNL Edema: Yes Edema: LLE: Trace, RLE: Trace Neurological: Yes: Oriented Psychiatric: Yes: Oriented Labs: CBC, BMP 01/19/20 06:48 01/19/20 06:48 INR, PTT INR 1.26 (0.83-1.09) H 01/14/20 19:45 Problem List - Problems (1) ALICIA (acute kidney injury) Code(s): N17.9 - ACUTE KIDNEY FAILURE, UNSPECIFIED (2) Cough Code(s): R05 - COUGH Assessment/Plan Current Medications Generic Name Dose Route Start Last Admin Trade Name Freq PRN Reason Stop Dose Admin Acetaminophen 325 mg 01/18/20 23:43 01/18/20 23:44 Tylenol - PO 325 mg Q6H PRN Administration PAIN LEVEL 1 - 3 Aspirin 81 mg 01/19/20 10:00 01/19/20 09:34 Asa - PO 81 mg DAILY [facility] Administration Atorvastatin Calcium 40 mg 01/18/20 22:00 01/18/20 21:46 Lipitor - PO 40 mg HS [facility] Administration Chlorhexidine Gluconate 1 applic 01/18/20 22:00 01/18/20 21:41 Hibiclens For Decolonization - TP Not Given HS [facility] Clopidogrel Bisulfate 75 mg 01/19/20 10:00 01/19/20 09:35 Plavix - PO 75 mg DAILY [facility] Administration Enoxaparin Sodium 100 mg 01/18/20 22:00 01/19/20 09:36 Lovenox - SQ 100 mg BID [facility] Administration Gabapentin 300 mg 01/18/20 22:00 01/19/20 09:34 Neurontin - PO 300 mg BID [facility] Administration Guaifenesin/Codeine Phosphate 5 ml 01/18/20 16:02 Robitussin Ac - PO TID PRN COUGH Cefazolin Sodium/Dextrose 2 gm in 50 mls @ 100 mls/hr 01/18/20 18:00 01/19/20 17:41 Ancef 2 Gm Premixed Ivpb - IVPB 100 mls/hr Q8H-IV [facility] Administration Vancomycin HCl 1,000 mg in 250 mls @ 166.667 mls/hr 01/18/20 19:00 01/19/20 07:50 Vancomycin (Pre-Docked) IVPB 166.667 mls/hr BID@0700,1900 [facility] Administration Protocol Metronidazole 500 mg 01/18/20 22:00 01/19/20 14:20 Flagyl - PO 500 mg TID [facility] Administration Mupirocin 1 applic 01/18/20 22:00 01/19/20 09:36 Bactroban Ointment (For Decolonization) - NS 01/22/20 21:59 Not Given BID [facility] Ondansetron HCl 4 mg 01/18/20 16:02 Zofran Injection IVPUSH Q6H PRN NAUSEA AND/OR VOMITING Oxycodone HCl 5 mg 01/18/20 16:02 01/18/20 23:39 Roxicodone - PO 5 mg Q4H PRN Administration PAIN LEVEL 4-6 Pantoprazole Sodium 40 mg 01/19/20 10:00 01/19/20 09:34 Protonix - PO 40 mg DAILY [facility] Administration Polyethylene Glycol 17 gm 01/19/20 11:43 Miralax (For Daily Use) - PO DAILY [facility] Promethazine HCl 12.5 mg 01/18/20 16:02 Phenergan Injection - IVPUSH Q6H PRN NAUSEA-FOR RESCUE AFTER 15 MIN Impression 1. alicia resolved 2. bacteremia 3. htn 4. hld 5. pvd Plan - stopped fluids - hold of lasix for now - monitor lower ext edema - monitor research project manager - avoid nephrotoxins - avoid nsaids
[2020-01-19] MEDS: CHLORHEXIDINE GLUCONATE 4% CLEANSER FOR DECOLONIZATION TP SCH (21:41)
[2020-01-19] MEDS: ATORVASTATIN CA 40 MG TABLET (FP) PO SCH (21:49)
[2020-01-20] MEDS: CEFAZOLIN 2 GM/D5W 2 GM/50 ML ML IVPB SCH ×4 (01:44→17:38)
[2020-01-20] MEDS ORDERED: PT OWN MED DRAWER 7, Y5N ONE ×4 (05:39→21:00)
[2020-01-20] MEDS: metroNIDAZOLE 500 MG TABLET PO SCH ×4 (06:21→21:11)
[2020-01-20 08:20] LABS: BASO % 0.7 % (0-2.0); EOS % 0.3 % (0-4.5); HEMATOCRIT 26.9 % (35.4-49); HEMOGLOBIN 8.9 GM/dL (11.7-16.9); LYMPH % 28.5 % (8-40); MCH 30.3 pg (25.7-33.7); MCHC 33.2 g/dl (32.0-35.9); MONO % 7.1 % (3.8-10.2); NEUT % 63.4 % (42.8-82.8); PLATELET COUNT 491 K/MM3 (134-434); RBC 2.95 M/mm3 (4.00-5.60); RDW 16.9 % (11.9-15.9); WHITE BLOOD COUNT 8.7 K/mm3 (4.0-10.0)
[2020-01-20 08:47] LABS: POTASSIUM 3.7 mmol/L (3.5-5.1)
[2020-01-20 08:54] LABS: ALBUMIN 1.7 g/dl (3.4-5.0); BILIRUBIN,TOTAL 0.4 mg/dL (0.2-1); BLOOD UREA NITROGEN 7.3 mg/dL (7-18); CREATININE 0.7 mg/dL (0.55-1.3); TOT PROT 5.8 g/dl (6.4-8.2)
[2020-01-20] MEDS ORDERED: MORPHINE SULFATE 2 MG/ML VIAL IVPUSH PRN ×2 (09:04→11:04)
[2020-01-20] MEDS ORDERED: oxyCODONE HCL 5 MG TABLET PO PRN (09:04)
[2020-01-20] MEDS ORDERED: ACETAMINOPHEN 500 MG TABLET (FP) PO PRN (09:06)
[2020-01-20] MEDS: VANCOMYCIN 1 GRAM (PRE-DOCKED) 1,000 MG/250 ML BAG IVPB SCH ×3 (09:16→18:01)
[2020-01-20] MEDS: GABAPENTIN 300 MG CAPSULE PO SCH ×3 (09:22→21:10)
[2020-01-20] MEDS: PANTOPRAZOLE 40 MG TABLET PO SCH ×2 (09:22→14:02)
[2020-01-20] MEDS: ENOXAPARIN NA (PORCINE) 100 MG/1 ML DISP.SYRIN SQ SCH ×2 (09:22→21:11)
[2020-01-20] MEDS: ASPIRIN 81 MG CHEWABLE TABLETS PO SCH (09:22)
[2020-01-20] MEDS: CLOPIDOGREL BISULFATE 75 MG TABLET (FP) PO SCH ×2 (09:22→14:03)
--- NOTE | 2020-01-20 10:02 | PN ---
Progress Note, Physician Chief Complaint: Right Axillo-femoral and femorofemoral bypass Right fem-tibial graft with multiple episodes of graft thrombosis Right groin post op infection ALICIA Bacteremia History of Present Illness: NAD, sitting in chair, worked with PT Denies any N/V Pain improved with pain meds Dressing change this AM by Surgery Operative Date: 01/17/20 Pre-Operative Diagnosis: Prosthetic graft infection Operation: Redo axillo-bifemoral bypass. Excision infected graft. Findings: Purulent material around prosthetic graft at site of recent surgery extending up to upper abdominal segment. Thoracic portion and fem-fem grafts had no evidence for infection. Implants: 6 mm ringed PTFE Propaten Post-Operative Diagnosis: Same as Pre-op Surgeon: Carlos Stoner - Current Medication List Current Medications: Active Medications Acetaminophen (Tylenol -) 1,000 mg PO Q6H PRN PRN Reason: PAIN LEVEL 1 - 3 Aspirin (Asa -) 81 mg PO DAILY [facility] Last Admin: 01/20/20 09:22 Dose: 81 mg Documented by: Atorvastatin Calcium (Lipitor -) 40 mg PO HS [facility] Last Admin: 01/19/20 21:49 Dose: 40 mg Documented by: Clopidogrel Bisulfate (Plavix -) 75 mg PO DAILY [facility] Last Admin: 01/20/20 09:22 Dose: 75 mg Documented by: Enoxaparin Sodium (Lovenox -) 100 mg SQ BID [facility] Last Admin: 01/20/20 09:22 Dose: 100 mg Documented by: Gabapentin (Neurontin -) 300 mg PO BID [facility] Last Admin: 01/20/20 09:22 Dose: 300 mg Documented by: Guaifenesin/Codeine Phosphate (Robitussin Ac -) 5 ml PO TID PRN PRN Reason: COUGH Cefazolin Sodium/Dextrose (Ancef 2 Gm Premixed Ivpb -) 2 gm in 50 mls @ 100 mls/hr IVPB Q8H-IV [facility] Last Admin: 01/20/20 01:44 Dose: 100 mls/hr Documented by: Vancomycin HCl (Vancomycin (Pre-Docked)) 1,000 mg in 250 mls @ 166.667 mls/hr IVPB BID@0700,1900 [facility]; Protocol Last Admin: 01/20/20 09:16 Dose: 166.667 mls/hr Documented by: Metronidazole (Flagyl -) 500 mg PO TID [facility] Last Admin: 01/20/20 06:21 Dose: 500 mg Documented by: Morphine Sulfate (Morphine Sulfate) 2 mg IVPUSH Q4H PRN PRN Reason: PAIN LEVEL 7 - 10 Last Admin: 01/20/20 09:09 Dose: 2 mg Documented by: Ondansetron HCl (Zofran Injection) 4 mg IVPUSH Q6H PRN PRN Reason: NAUSEA AND/OR VOMITING Oxycodone HCl (Roxicodone -) 5 mg PO Q4H PRN PRN Reason: PAIN LEVEL 4-6 Last Admin: 01/18/20 23:39 Dose: 5 mg Documented by: Oxycodone HCl (Roxicodone -) 10 mg PO Q3H PRN PRN Reason: PAIN LEVEL 6-10 Pantoprazole Sodium (Protonix -) 40 mg PO DAILY [facility] Last Admin: 01/20/20 09:22 Dose: 40 mg Documented by: Polyethylene Glycol (Miralax (For Daily Use) -) 17 gm PO DAILY [facility] Last Admin: 01/20/20 09:23 Dose: Not Given Documented by: Promethazine HCl (Phenergan Injection -) 12.5 mg IVPUSH Q6H PRN PRN Reason: NAUSEA-FOR RESCUE AFTER 15 MIN - Objective Vital Signs: Vital Signs Temperature 97.7 F 01/20/20 05:58 Pulse Rate 59 L 01/20/20 05:58 Respiratory Rate 20 01/20/20 05:58 Blood Pressure 127/58 L 01/20/20 05:58 O2 Sat by Pulse Oximetry (%) 91 L 01/19/20 22:18 Constitutional: Yes: Well Nourished, No Distress, Calm Cardiovascular: Yes: Regular Rate and Rhythm Respiratory: Yes: Regular, CTA Bilaterally Gastrointestinal: Yes: Normal Bowel Sounds, Soft Genitourinary: Yes: WNL Musculoskeletal: Yes: Muscle Weakness Extremities: Yes: WNL Edema: Yes Edema: RLE: Trace Peripheral Pulses WNL: Yes Wound/Incision: Yes: Dressing Dry and Intact Neurological: Yes: Alert, Oriented Psychiatric: Yes: Alert, Oriented Labs: CBC, BMP 01/20/20 07:16 01/20/20 07:16 INR, PTT INR 1.26 (0.83-1.09) H 01/14/20 19:45 Problem List - Problems (1) ALICIA (acute kidney injury) Assessment/Plan: -resolved -Nephrology on board Problems reviewed: Yes Code(s): N17.9 - ACUTE KIDNEY FAILURE, UNSPECIFIED (2) Post-operative infection Assessment/Plan: -ID consult on board -IV Vanco+ Cefazolin---> will need PICC line Microbiology 01/17/20 14:15 Chest Gram Stain - Final 01/14/20 06:45 Blood - Peripheral Venous Blood Culture - Preliminary NO GROWTH OBTAINED AFTER 96 HOURS, INCUBATION TO CONTINUE FOR 1 DAYS. 01/14/20 06:40 Blood - Peripheral Venous Blood Culture - Final Staphylococcus Aureus 01/11/20 05:58 Blood - Peripheral Venous Blood Culture - Final NO GROWTH AFTER 5 DAYS INCUBATION 01/11/20 05:52 Blood - Peripheral Venous Blood Culture - Final NO GROWTH AFTER 5 DAYS INCUBATION 01/09/20 10:10 Thigh - Right Gram Stain - Final 01/09/20 10:10 Thigh - Right Wound Culture - Final Staphylococcus Aureus Finegoldia Magna 01/09/20 09:40 Blood - Peripheral Venous Blood Culture - Final Staphylococcus Latex Coag Pos 01/09/20 09:40 Blood - Peripheral Venous Blood Culture - Final Staphylococcus Aureus 01/09/20 11:50 Urine - Urine Clean Catch Urine Culture - Final NO GROWTH OBTAINED -afebrile -leukocytosis improved Problems reviewed: Yes Code(s): T81.40XA - INFECTION FOLLOWING A PROCEDURE, UNSPECIFIED, INIT Qualifiers: Encounter type: initial encounter Postoperative infection type: unspecified type Qualified Code(s): T81.40XA - Infection following a procedure, unspecified, initial encounter (3) Staphylococcus aureus bacteremia with sepsis Assessment/Plan: as above Problems reviewed: Yes Code(s): A41.01 - SEPSIS DUE TO METHICILLIN SUSCEPTIBLE STAPHYLOCOCCUS AUREUS (4) Arterial occlusion, lower extremity Assessment/Plan: Operative Date: 01/17/20 Pre-Operative Diagnosis: Prosthetic graft infection Operation: Redo axillo-bifemoral bypass. Excision infected graft. Findings: Purulent material around prosthetic graft at site of recent surgery extending up to upper abdominal segment. Thoracic portion and fem-fem grafts had no evidence for infection. Implants: 6 mm ringed PTFE Propaten Post-Operative Diagnosis: Same as Pre-op Surgeon: Carlos Stoner -Seen by Vascular surgery today -Dressing changed by surgery -Next dressing change on Friday -Please administer morphine at least 30 mins prior to dressing change Problems reviewed: Yes Code(s): I70.209 - UNSP ATHSCL [place] [employer] ARTERIES OF EXTREMITIES, UNSP EXTREMITY (5) HLD (hyperlipidemia) Assessment/Plan: -HDL at 9 -LDL at 35 -Decrease atorvastatin to 40 mg po HS Problems reviewed: Yes Code(s): E78.5 - HYPERLIPIDEMIA, UNSPECIFIED Qualifiers: Hyperlipidemia type: pure hypercholesterolemia Qualified Code(s): E78.00 - Pure hypercholesterolemia, unspecified; E78.0 - Pure hypercholesterolemia (6) Diarrhea Assessment/Plan: -resolved -Last BM 4 days ago -Restarted Miralax daily PRN to avoid OIC -Colace 300 mg po HS Problems reviewed: Yes Code(s): R19.7 - DIARRHEA, UNSPECIFIED Assessment/Plan See problem list Physical therapy
--- NOTE | 2020-01-20 10:50 | PN ---
Progress Note (short form) - Note Progress Note: POD 3, s/p Redo axillo-bifemoral bypass. Excision infected graft. Pt seen and examined. Reports he is feeling "okay". Has significant pain with dressing changes. States he feels slightly better since his fevers have resolved. Was oob yesterday but only able to walk 1-2 steps due to pain and weakness. Tolerating PO. Denies cp/sob/n/v/d. Vital Signs Temp 97.7 F 01/20/20 05:58 Pulse 59 L 01/20/20 05:58 Resp 20 01/20/20 05:58 BP 127/58 L 01/20/20 05:58 Pulse Ox 91 L 01/19/20 22:18 Intake & Output 01/19/20 01/19/20 01/20/20 11:59 23:59 11:59 Intake Total 50 600 0 Output Total 300 600 Balance -250 0 0 Intake: IV 0 Saline Lock 0 IVPB 50 600 0 Output: Urine 300 600 Void 300 600 Other: Voiding Method Urinal Urinal # Unmeasured Voids Raymundo 0 Void 1 Bowel Movement No No No # Bowel Movements 0 CBC, BMP 01/20/20 07:16 01/20/20 07:16 Gen: awake, alert, nad Resp: unlabored on RA Chest/Abdo/Groin: multiple small incisions from chest to groin with levy in places, all incisions c/d/i with no erythema or drainage. Dressing over open incisions saturated with serosanguinous drainage, R lateral proximal abdominal incision with packing in place, removed, incision with minimal fibrinous exudate, serous drainage. Distal incision with moderate fibrinous exudate, serous drainage, no foul odor, ++ttp. Both incisions re-packed with Iodoform packing. No tracking erythema noted. 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 Excision infected graft. 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 Change packed wounds QOD with iodoform. Regular diet D/w Dr. Stoner
--- NOTE | 2020-01-20 10:55 | PN ---
Progress Note (short form) - Note Progress Note: cc b/l leg pain s: no chest pain, palps, dizziness, dyspnea Current Medications Generic Name Dose Route Start Last Admin Trade Name Freq PRN Reason Stop Dose Admin Acetaminophen 1,000 mg 01/20/20 09:06 Tylenol - PO Q6H PRN PAIN LEVEL 1 - 3 Aspirin 81 mg 01/19/20 10:00 01/20/20 09:22 Asa - PO 81 mg DAILY [facility] Administration Atorvastatin Calcium 40 mg 01/18/20 22:00 01/19/20 21:49 Lipitor - PO 40 mg HS [facility] Administration Clopidogrel Bisulfate 75 mg 01/19/20 10:00 01/20/20 09:22 Plavix - PO 75 mg DAILY [facility] Administration Enoxaparin Sodium 100 mg 01/18/20 22:00 01/20/20 09:22 Lovenox - SQ 100 mg BID [facility] Administration Gabapentin 300 mg 01/18/20 22:00 01/20/20 09:22 Neurontin - PO 300 mg BID [facility] Administration Guaifenesin/Codeine Phosphate 5 ml 01/18/20 16:02 Robitussin Ac - PO TID PRN COUGH Cefazolin Sodium/Dextrose 2 gm in 50 mls @ 100 mls/hr 01/18/20 18:00 01/20/20 01:44 Ancef 2 Gm Premixed Ivpb - IVPB 100 mls/hr Q8H-IV [facility] Administration Vancomycin HCl 1,000 mg in 250 mls @ 166.667 mls/hr 01/18/20 19:00 01/20/20 09:16 Vancomycin (Pre-Docked) IVPB 166.667 mls/hr BID@0700,1900 [facility] Administration Protocol Metronidazole 500 mg 01/18/20 22:00 01/20/20 06:21 Flagyl - PO 500 mg TID [facility] Administration Morphine Sulfate 2 mg 01/20/20 09:04 01/20/20 09:09 Morphine Sulfate IVPUSH 2 mg Q4H PRN Administration PAIN LEVEL 7 - 10 Ondansetron HCl 4 mg 01/18/20 16:02 Zofran Injection IVPUSH Q6H PRN NAUSEA AND/OR VOMITING Oxycodone HCl 5 mg 01/18/20 16:02 01/18/20 23:39 Roxicodone - PO 5 mg Q4H PRN Administration PAIN LEVEL 4-6 Oxycodone HCl 10 mg 01/20/20 09:04 Roxicodone - PO Q3H PRN PAIN LEVEL 6-10 Pantoprazole Sodium 40 mg 01/19/20 10:00 01/20/20 09:22 Protonix - PO 40 mg DAILY [facility] Administration Polyethylene Glycol 17 gm 01/19/20 11:43 01/20/20 09:23 Miralax (For Daily Use) - PO Not Given DAILY [facility] Promethazine HCl 12.5 mg 01/18/20 16:02 Phenergan Injection - IVPUSH Q6H PRN NAUSEA-FOR RESCUE AFTER 15 MIN Vital Signs Period Temp Pulse Resp BP Sys/White Pulse Ox Last 24 Hr 97.7 F-98.5 F 59-93 18-20 101-127/58-68 91-95 nad no jvd rrr s1s2 no mrg cta bl nl eff aaox3 no le edema no jaundice diaphoresis abd nt nd pos bs CBC, BMP 01/20/20 07:16 01/20/20 07:16 CT chest: mild chronic lung dz with no acute pathology ecg: sr, nl intervals, no ischemic changes mibi 11/2016: no ischemia, lvef 80 echo 12/2019 nl LV function, impaired relaxation, nl RV, mild MR, tr to mild TR, mildly sclerotic AV no dysfunction a/p: 59 m hx htn, pad here with b/l leg pain, fever, bacteremia fever, wound infection, staph bacteremia, sepsis: - s/p redo axillo-fem bypass and removal of infected graft - no vegetation on echo - manage per vascular pad, history of graft thrombosis: - cont plavix, aspirin, lovenox per vascular htn: -not on meds at home -soft BPs here, monitor ALICIA: - likely prerenal, improved with IVF - renal following Prolonged QT on tele: -stable -Avoid/ minimize QT prolonging drugs
[2020-01-20] MEDS ORDERED: POLYETHYLENE GLYCOL 3350 119 GM BTL PO PRN (11:35)
[2020-01-20] MEDS: POTASSIUM CHLORIDE TABS 20 MEQ TABLET.ER (FP) PO SCH (14:03)
[2020-01-20] MEDS: POLYETHYLENE GLYCOL 3350 119 GM BTL PO SCH (14:03)
[2020-01-20] MEDS: DOCUSATE SODIUM 100 MG CAPSULE (FP) PO SCH ×2 (14:03→21:10)
--- NOTE | 2020-01-20 14:08 | PN ---
Progress Note, Physician History of Present Illness: AWAKE, ALERT IN BED NO C/O GENE AFEBRILE WBC IMPROVED WNL BC 01/16 NO GROWTH VANCOMYCIN LEVEL NOTED OPERATIVE C/S NO GROWTH - Current Medication List Current Medications: Active Medications Acetaminophen (Tylenol -) 1,000 mg PO Q6H PRN PRN Reason: PAIN LEVEL 1 - 3 Aspirin (Asa -) 81 mg PO DAILY [facility] Last Admin: 01/20/20 09:22 Dose: 81 mg Documented by: Atorvastatin Calcium (Lipitor -) 40 mg PO [facility] Last Admin: 01/19/20 21:49 Dose: 40 mg Documented by: Clopidogrel Bisulfate (Plavix -) 75 mg PO DAILY [facility] Last Admin: 01/20/20 09:22 Dose: 75 mg Documented by: Docusate Sodium (Colace -) 300 mg PO [facility] Enoxaparin Sodium (Lovenox -) 100 mg SQ BID [facility] Last Admin: 01/20/20 09:22 Dose: 100 mg Documented by: Gabapentin (Neurontin -) 300 mg PO BID [facility] Last Admin: 01/20/20 09:22 Dose: 300 mg Documented by: Cefazolin Sodium/Dextrose (Ancef 2 Gm Premixed Ivpb -) 2 gm in 50 mls @ 100 mls/hr IVPB Q8H-IV [facility] Last Admin: 01/20/20 11:03 Dose: 100 mls/hr Documented by: Vancomycin HCl (Vancomycin (Pre-Docked)) 1,000 mg in 250 mls @ 166.667 mls/hr IVPB BID@0700,1900 [facility]; Protocol Last Admin: 01/20/20 09:16 Dose: 166.667 mls/hr Documented by: Metronidazole (Flagyl -) 500 mg PO TID [facility] Last Admin: 01/20/20 06:21 Dose: 500 mg Documented by: Morphine Sulfate (Morphine Sulfate) 2 mg IVPUSH Q4H PRN PRN Reason: PAIN 7-10; IF OXYCODE NT WORK Ondansetron HCl (Zofran Injection) 4 mg IVPUSH Q6H PRN PRN Reason: NAUSEA AND/OR VOMITING Oxycodone HCl (Roxicodone -) 5 mg PO Q4H PRN PRN Reason: PAIN LEVEL 4-6 Last Admin: 01/18/20 23:39 Dose: 5 mg Documented by: Oxycodone HCl (Roxicodone -) 10 mg PO Q3H PRN PRN Reason: PAIN LEVEL 7-10 Pantoprazole Sodium (Protonix -) 40 mg PO DAILY [facility] Last Admin: 01/20/20 09:22 Dose: 40 mg Documented by: Polyethylene Glycol (Miralax (For Daily Use) -) 17 gm PO DAILY PRN PRN Reason: CONSTIPATION Promethazine HCl (Phenergan Injection -) 12.5 mg IVPUSH Q6H PRN PRN Reason: NAUSEA-FOR RESCUE AFTER 15 MIN - Objective Vital Signs: Vital Signs Temperature 97.7 F 01/20/20 05:58 Pulse Rate 59 L 01/20/20 05:58 Respiratory Rate 20 01/20/20 05:58 Blood Pressure 127/58 L 01/20/20 05:58 O2 Sat by Pulse Oximetry (%) 91 L 01/19/20 22:18 Constitutional: Yes: No Distress Eyes: Yes: Conjunctiva Clear Cardiovascular: Yes: Regular Rate and Rhythm, S1, S2 Respiratory: Yes: CTA Bilaterally Gastrointestinal: Yes: Normal Bowel Sounds, Soft. No: Tenderness Integumentary: Yes: Other (DRESSING IN PLACE) Labs: CBC, BMP 01/20/20 07:16 01/20/20 07:16 INR, PTT INR 1.26 (0.83-1.09) H 01/14/20 19:45 Assessment/Plan POST OP DAY #3 REDO AXILLOFEMORAL BYPASS, EXCISION OF INFECTED PROSTHETIC GRAFT MSSA BACTEREMIA WOUND INFECTION / INFECTED GRAFT FEVER/ LEUKOCYTOSIS IMPROVED COVID -19 NEGATIVE THROMBOCYTOPENIA PCN ALLERGY REPEAT BC 01/16 (-) PICC FOR OUTPATIENT ANTIBIOTIC THERAPY CEFAZOLIN 2GM Q8H ADDITIONAL 5WEEKS
[2020-01-20 15:12] VITALS: BMI 26.1
--- NOTE | 2020-01-20 15:12 | PN ---
Progress Note, Physician History of Present Illness: Pt seen and examined at bedside. He is awake and alert. He feels his lower ext edema is improved. - Current Medication List Current Medications: Active Medications Acetaminophen (Tylenol -) 1,000 mg PO Q6H PRN PRN Reason: PAIN LEVEL 1 - 3 Aspirin (Asa -) 81 mg PO DAILY [facility] Last Admin: 01/20/20 09:22 Dose: 81 mg Documented by: Atorvastatin Calcium (Lipitor -) 40 mg PO [facility] Last Admin: 01/19/20 21:49 Dose: 40 mg Documented by: Clopidogrel Bisulfate (Plavix -) 75 mg PO DAILY [facility] Last Admin: 01/20/20 09:22 Dose: 75 mg Documented by: Docusate Sodium (Colace -) 300 mg PO [facility] Enoxaparin Sodium (Lovenox -) 100 mg SQ BID [facility] Last Admin: 01/20/20 09:22 Dose: 100 mg Documented by: Gabapentin (Neurontin -) 300 mg PO BID [facility] Last Admin: 01/20/20 09:22 Dose: 300 mg Documented by: Cefazolin Sodium/Dextrose (Ancef 2 Gm Premixed Ivpb -) 2 gm in 50 mls @ 100 mls/hr IVPB Q8H-IV [facility] Last Admin: 01/20/20 11:03 Dose: 100 mls/hr Documented by: Vancomycin HCl (Vancomycin (Pre-Docked)) 1,000 mg in 250 mls @ 166.667 mls/hr IVPB BID@0700,1900 [facility]; Protocol Last Admin: 01/20/20 09:16 Dose: 166.667 mls/hr Documented by: Metronidazole (Flagyl -) 500 mg PO TID [facility] Last Admin: 01/20/20 14:46 Dose: 500 mg Documented by: Morphine Sulfate (Morphine Sulfate) 2 mg IVPUSH Q4H PRN PRN Reason: PAIN 7-10; IF OXYCODE NT WORK Ondansetron HCl (Zofran Injection) 4 mg IVPUSH Q6H PRN PRN Reason: NAUSEA AND/OR VOMITING Oxycodone HCl (Roxicodone -) 5 mg PO Q4H PRN PRN Reason: PAIN LEVEL 4-6 Last Admin: 01/18/20 23:39 Dose: 5 mg Documented by: Oxycodone HCl (Roxicodone -) 10 mg PO Q3H PRN PRN Reason: PAIN LEVEL 7-10 Pantoprazole Sodium (Protonix -) 40 mg PO DAILY [facility] Last Admin: 01/20/20 09:22 Dose: 40 mg Documented by: Polyethylene Glycol (Miralax (For Daily Use) -) 17 gm PO DAILY PRN PRN Reason: CONSTIPATION Promethazine HCl (Phenergan Injection -) 12.5 mg IVPUSH Q6H PRN PRN Reason: NAUSEA-FOR RESCUE AFTER 15 MIN - Objective Vital Signs: Vital Signs Temperature 97.7 F 01/20/20 05:58 Pulse Rate 59 L 01/20/20 05:58 Respiratory Rate 01/20/20 05:58 Blood Pressure 127/58 L 01/20/20 05:58 O2 Sat by Pulse Oximetry (%) 91 L 01/19/20 22:18 Constitutional: Yes: Calm Eyes: Yes: Conjunctiva Clear HENT: Yes: Atraumatic Cardiovascular: Yes: S1, S2 Respiratory: Yes: CTA Bilaterally Gastrointestinal: Yes: Soft Genitourinary: Yes: WNL Musculoskeletal: Yes: WNL Edema: Yes Edema: LLE: Trace, RLE: Trace Neurological: Yes: Oriented Psychiatric: Yes: Oriented Labs: CBC, BMP 01/20/20 07:16 01/20/20 07:16 INR, PTT INR 1.26 (0.83-1.09) H 01/14/20 19:45 Problem List - Problems (1) ALICIA (acute kidney injury) Code(s): N17.9 - ACUTE KIDNEY FAILURE, UNSPECIFIED (2) Cough Code(s): R05 - COUGH Assessment/Plan Current Medications Generic Name Dose Route Start Last Admin Trade Name Freq PRN Reason Stop Dose Admin Acetaminophen 1,000 mg 01/20/20 09:06 Tylenol - PO Q6H PRN PAIN LEVEL 1 - 3 Aspirin 81 mg 01/19/20 10:00 01/20/20 09:22 Asa - PO 81 mg DAILY [facility] Administration Atorvastatin Calcium 40 mg 01/18/20 22:00 01/19/20 21:49 Lipitor - PO 40 mg HS [facility] Administration Clopidogrel Bisulfate 75 mg 01/19/20 10:00 01/20/20 09:22 Plavix - PO 75 mg DAILY [facility] Administration Docusate Sodium 300 mg 01/20/20 22:00 Colace - PO HS [facility] Enoxaparin Sodium 100 mg 01/18/20 22:00 01/20/20 09:22 Lovenox - SQ 100 mg BID [facility] Administration Gabapentin 300 mg 01/18/20 22:00 01/20/20 09:22 Neurontin - PO 300 mg BID [facility] Administration Cefazolin Sodium/Dextrose 2 gm in 50 mls @ 100 mls/hr 01/18/20 18:00 01/20/20 11:03 Ancef 2 Gm Premixed Ivpb - IVPB 100 mls/hr Q8H-IV [facility] Administration Vancomycin HCl 1,000 mg in 250 mls @ 166.667 mls/hr 01/18/20 19:00 01/20/20 09:16 Vancomycin (Pre-Docked) IVPB 166.667 mls/hr BID@0700,1900 [facility] Administration Protocol Metronidazole 500 mg 01/18/20 22:00 01/20/20 14:46 Flagyl - PO 500 mg TID [facility] Administration Morphine Sulfate 2 mg 01/20/20 11:04 Morphine Sulfate IVPUSH Q4H PRN PAIN 7-10; IF OXYCODE NT WORK Ondansetron HCl 4 mg 01/18/20 16:02 Zofran Injection IVPUSH Q6H PRN NAUSEA AND/OR VOMITING Oxycodone HCl 5 mg 01/18/20 16:02 01/18/20 23:39 Roxicodone - PO 5 mg Q4H PRN Administration PAIN LEVEL 4-6 Oxycodone HCl 10 mg 01/20/20 09:04 Roxicodone - PO Q3H PRN PAIN LEVEL 7-10 Pantoprazole Sodium 40 mg 01/19/20 10:00 01/20/20 09:22 Protonix - PO 40 mg DAILY [facility] Administration Polyethylene Glycol 17 gm 01/20/20 11:35 Miralax (For Daily Use) - PO DAILY PRN CONSTIP[facility] Promethazine HCl 12.5 mg 01/18/20 16:02 Phenergan Injection - IVPUSH Q6H PRN NAUSEA-FOR RESCUE AFTER 15 MIN Impression 1. alicia resolved 2. bacteremia 3. htn 4. hld 5. pvd Plan - edema improving - will hold off giving lasix - monitor volume status - stable off of fluids - vascular follow up - avoid nephrotoxins - avoid nsaids
[2020-01-20] MEDS: ATORVASTATIN CA 40 MG TABLET (FP) PO SCH (21:10)
[2020-01-21] MEDS: CEFAZOLIN 2 GM/D5W 2 GM/50 ML ML IVPB SCH ×3 (01:10→17:59)
[2020-01-21] MEDS: metroNIDAZOLE 500 MG TABLET PO SCH ×3 (06:28→21:21)
[2020-01-21] MEDS: VANCOMYCIN 1 GRAM (PRE-DOCKED) 1,000 MG/250 ML BAG IVPB SCH ×2 (06:28→18:19)
[2020-01-21 08:48] LABS: BASO % 0.7 % (0-2.0); EOS % 0.2 % (0-4.5); HEMATOCRIT 27.6 % (35.4-49); HEMOGLOBIN 9.2 GM/dL (11.7-16.9); LYMPH % 32.6 % (8-40); MCH 30.6 pg (25.7-33.7); MCHC 33.3 g/dl (32.0-35.9); MEAN PLT VOLUME 7.9 fl (7.5-11.1); MONO % 8.4 % (3.8-10.2); NEUT % 58.1 % (42.8-82.8); PLATELET COUNT 543 K/MM3 (134-434); WHITE BLOOD COUNT 7.7 K/mm3 (4.0-10.0)
[2020-01-21 08:54] LABS: ALBUMIN 1.8 g/dl (3.4-5.0); BILIRUBIN,TOTAL 0.4 mg/dL (0.2-1); BLOOD UREA NITROGEN 6.9 mg/dL (7-18); CREATININE 0.7 mg/dL (0.55-1.3); POTASSIUM 3.6 mmol/L (3.5-5.1); TOT PROT 6.1 g/dl (6.4-8.2)
--- NOTE | 2020-01-21 08:57 | PN ---
Progress Note (short form) - Note Progress Note: VASCULAR SURGERY POD #4 s/p Redo axillo-femoral bypass and excision of infected graft Resting comfortably. Reports significant pain with each dressing change. Next scheduled is for 01/22/20. He is oob and ambulating very short distance (1-2 steps)...limited secondary to pain. Remains afebrile since surgery. Tolerating PO diet. Denies n/v/f/c, CP, palpitations, SOB or FRANCIS. Last Vital Signs Temp Pulse Resp BP Pulse Ox 98.5 F 85 18 123/76 95 01/21/20 05:00 01/21/20 05:00 01/21/20 05:00 01/21/20 05:00 01/21/20 05:00 PE Gen: a&o, nad Resp: unlabored on RA Cx/Abd/Groin: (dressings changed 01/19, scheduled for every other day. Gross examination doesn't reveal any indication of infection. Yesterday's note:multiple small incisions from chest to groin with levy in places, all incisions c/d/i with no erythema or drainage. Dressing over open incisions saturated with serosanguinous drainage, R lateral proximal abd incision with packing in place, incision with minimal fibrinous exudate, serous drainage. Distal incision with moderate fibrinous exudate, serous drainage, no foul odor, ++ttp. No tracking erythema noted. Ext: all compartments soft. Warm to touch. 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 Excision infected graft. Leukocytosis resolved. Remains afebrile. 1. Lovenox 100mg BID, ASA & Plavix daily 2. OOB to chair with PT 3. PO pain meds PRN 4. Stool softners PRN 5. Morphine IV ordered for dressing changes 6. ID f/u; IV ABX; recommend PICC 7. Dressing scheduled (ordered) for QOD (01/22/20) with iodoform. 8. Regular diet Above plan discussed with Dr. Stoner and agrees Problem List - Problems (1) Staphylococcus aureus bacteremia with sepsis Code(s): A41.01 - SEPSIS DUE TO METHICILLIN SUSCEPTIBLE STAPHYLOCOCCUS AUREUS (2) Post-operative infection Code(s): T81.40XA - INFECTION FOLLOWING A PROCEDURE, UNSPECIFIED, INIT Qualifiers: Encounter type: initial encounter Postoperative infection type: unspecified type Qualified Code(s): T81.40XA - Infection following a procedure, unspeci fied, initial encounter (3) HLD (hyperlipidemia) Code(s): E78.5 - HYPERLIPIDEMIA, UNSPECIFIED Qualifiers: Hyperlipidemia type: pure hypercholesterolemia Qualified Code(s): E78.00 - Pure hypercholesterolemia, unspecified; E78.0 - Pure hypercholesterolemia
[2020-01-21] MEDS ORDERED: PT OWN MED DRAWER 7, Y5N ONE ×3 (10:27→19:58)
[2020-01-21] MEDS: CLOPIDOGREL BISULFATE 75 MG TABLET (FP) PO SCH (10:30)
[2020-01-21] MEDS: ASPIRIN 81 MG CHEWABLE TABLETS PO SCH (10:30)
[2020-01-21] MEDS: GABAPENTIN 300 MG CAPSULE PO SCH ×2 (10:30→21:21)
[2020-01-21] MEDS: ENOXAPARIN NA (PORCINE) 100 MG/1 ML DISP.SYRIN SQ SCH ×2 (10:30→21:21)
[2020-01-21] MEDS: PANTOPRAZOLE 40 MG TABLET PO SCH (10:30)
--- NOTE | 2020-01-21 10:49 | PN ---
Progress Note, Physician History of Present Illness: PULMONARY ALERT,COMFORTABLE,-SOB,-CP - Current Medication List Current Medications: Active Medications Acetaminophen (Tylenol -) 1,000 mg PO Q6H PRN PRN Reason: PAIN LEVEL 1 - 3 Aspirin (Asa -) 81 mg PO DAILY [facility] Last Admin: 01/21/20 10:30 Dose: 81 mg Documented by: Atorvastatin Calcium (Lipitor -) 40 mg PO [facility] Last Admin: 01/20/20 21:10 Dose: 40 mg Documented by: Clopidogrel Bisulfate (Plavix -) 75 mg PO DAILY [facility] Last Admin: 01/21/20 10:30 Dose: 75 mg Documented by: Docusate Sodium (Colace -) 300 mg PO [facility] Last Admin: 01/20/20 21:10 Dose: 300 mg Documented by: Enoxaparin Sodium (Lovenox -) 100 mg SQ BID [facility] Last Admin: 01/21/20 10:30 Dose: 100 mg Documented by: Gabapentin (Neurontin -) 300 mg PO BID [facility] Last Admin: 01/21/20 10:30 Dose: 300 mg Documented by: Cefazolin Sodium/Dextrose (Ancef 2 Gm Premixed Ivpb -) 2 gm in 50 mls @ 100 mls/hr IVPB Q8H-IV [facility] Last Admin: 01/21/20 10:30 Dose: 100 mls/hr Documented by: Vancomycin HCl (Vancomycin (Pre-Docked)) 1,000 mg in 250 mls @ 166.667 mls/hr IVPB BID@0700,1900 [facility]; Protocol Last Admin: 01/21/20 06:28 Dose: 166.667 mls/hr Documented by: Metronidazole (Flagyl -) 500 mg PO TID [facility] Last Admin: 01/21/20 06:28 Dose: 500 mg Documented by: Morphine Sulfate (Morphine Sulfate) 2 mg IVPUSH Q4H PRN PRN Reason: PAIN 7-10; IF OXYCODE NT WORK Ondansetron HCl (Zofran Injection) 4 mg IVPUSH Q6H PRN PRN Reason: NAUSEA AND/OR VOMITING Oxycodone HCl (Roxicodone -) 5 mg PO Q4H PRN PRN Reason: PAIN LEVEL 4-6 Last Admin: 01/18/20 23:39 Dose: 5 mg Documented by: Oxycodone HCl (Roxicodone -) 10 mg PO Q3H PRN PRN Reason: PAIN LEVEL 7-10 Pantoprazole Sodium (Protonix -) 40 mg PO DAILY [facility] Last Admin: 01/21/20 10:30 Dose: 40 mg Documented by: Polyethylene Glycol (Miralax (For Daily Use) -) 17 gm PO DAILY PRN PRN Reason: CONSTIPATION Promethazine HCl (Phenergan Injection -) 12.5 mg IVPUSH Q6H PRN PRN Reason: NAUSEA-FOR RESCUE AFTER 15 MIN - Objective Vital Signs: Vital Signs Temperature 98.5 F 01/21/20 05:00 Pulse Rate 85 01/21/20 05:00 Respiratory Rate 18 01/21/20 05:00 Blood Pressure 123/76 01/21/20 05:00 O2 Sat by Pulse Oximetry (%) 95 01/21/20 05:00 Constitutional: Yes: Well Nourished, Calm Eyes: Yes: WNL HENT: Yes: WNL Neck: Yes: WNL Cardiovascular: Yes: Regular Rate and Rhythm, S1, S2 Respiratory: Yes: Diminished Gastrointestinal: Yes: Normal Bowel Sounds, Soft Extremities: Yes: WNL Edema: No Labs: CBC, BMP 01/21/20 07:20 01/21/20 07:20 INR, PTT INR 1.26 (0.83-1.09) H 01/14/20 19:45 Problem List - Problems (1) Staphylococcus aureus bacteremia with sepsis Code(s): A41.01 - SEPSIS DUE TO METHICILLIN SUSCEPTIBLE STAPHYLOCOCCUS AUREUS (2) ALICIA (acute kidney injury) Code(s): N17.9 - ACUTE KIDNEY FAILURE, UNSPECIFIED (3) Cough Code(s): R05 - COUGH (4) HLD (hyperlipidemia) Code(s): E78.5 - HYPERLIPIDEMIA, UNSPECIFIED Qualifiers: Hyperlipidemia type: pure hypercholesterolemia Qualified Code(s): E78.00 - Pure hypercholesterolemia, unspecified; E78.0 - Pure hypercholesterolemia Assessment/Plan Assessment/Plan Staph Bacteremia/Infected Graft s/p Redo Axillo-Bifemoral Bypass Wound Infection Sepsis Acute Kidney Injury resolved Hyponatremia PAD HTN Hyperlipidemia Anemia - Pain control - continue antibiotics - monitor urine output, creatinine - ASA, plavix - continue anticoagulation - wound care - O2 to keep Spo2 >90% DR GONG
--- NOTE | 2020-01-21 12:04 | PN ---
Progress Note, Physician Chief Complaint: no cp, sob, palps - Current Medication List Current Medications: Active Medications Acetaminophen (Tylenol -) 1,000 mg PO Q6H PRN PRN Reason: PAIN LEVEL 1 - 3 Aspirin (Asa -) 81 mg PO DAILY [facility] Last Admin: 01/21/20 10:30 Dose: 81 mg Documented by: Atorvastatin Calcium (Lipitor -) 40 mg PO [facility] Last Admin: 01/20/20 21:10 Dose: 40 mg Documented by: Clopidogrel Bisulfate (Plavix -) 75 mg PO DAILY [facility] Last Admin: 01/21/20 10:30 Dose: 75 mg Documented by: Docusate Sodium (Colace -) 300 mg PO [facility] Last Admin: 01/20/20 21:10 Dose: 300 mg Documented by: Enoxaparin Sodium (Lovenox -) 100 mg SQ BID [facility] Last Admin: 01/21/20 10:30 Dose: 100 mg Documented by: Gabapentin (Neurontin -) 300 mg PO BID [facility] Last Admin: 01/21/20 10:30 Dose: 300 mg Documented by: Cefazolin Sodium/Dextrose (Ancef 2 Gm Premixed Ivpb -) 2 gm in 50 mls @ 100 mls/hr IVPB Q8H-IV [facility] Last Admin: 01/21/20 10:30 Dose: 100 mls/hr Documented by: Vancomycin HCl (Vancomycin (Pre-Docked)) 1,000 mg in 250 mls @ 166.667 mls/hr IVPB BID@0700,1900 [facility]; Protocol Last Admin: 01/21/20 06:28 Dose: 166.667 mls/hr Documented by: Metronidazole (Flagyl -) 500 mg PO TID [facility] Last Admin: 01/21/20 06:28 Dose: 500 mg Documented by: Morphine Sulfate (Morphine Sulfate) 2 mg IVPUSH Q4H PRN PRN Reason: PAIN 7-10; IF OXYCODE NT WORK Ondansetron HCl (Zofran Injection) 4 mg IVPUSH Q6H PRN PRN Reason: NAUSEA AND/OR VOMITING Oxycodone HCl (Roxicodone -) 5 mg PO Q4H PRN PRN Reason: PAIN LEVEL 4-6 Last Admin: 01/18/20 23:39 Dose: 5 mg Documented by: Oxycodone HCl (Roxicodone -) 10 mg PO Q3H PRN PRN Reason: PAIN LEVEL 7-10 Pantoprazole Sodium (Protonix -) 40 mg PO DAILY [facility] Last Admin: 01/21/20 10:30 Dose: 40 mg Documented by: Polyethylene Glycol (Miralax (For Daily Use) -) 17 gm PO DAILY PRN PRN Reason: CONSTIPATION Promethazine HCl (Phenergan Injection -) 12.5 mg IVPUSH Q6H PRN PRN Reason: NAUSEA-FOR RESCUE AFTER 15 MIN - Objective Vital Signs: Vital Signs Temperature 98.5 F 01/21/20 05:00 Pulse Rate 85 01/21/20 05:00 Respiratory Rate 18 01/21/20 05:00 Blood Pressure 123/76 01/21/20 05:00 O2 Sat by Pulse Oximetry (%) 95 01/21/20 05:00 Constitutional: Yes: No Distress, Calm Cardiovascular: Yes: Regular Rate and Rhythm Respiratory: Yes: CTA Bilaterally (no rales or wheezing) Gastrointestinal: Yes: Soft (nt) Edema: No Labs: CBC, BMP 01/21/20 07:20 01/21/20 07:20 INR, PTT INR 1.26 (0.83-1.09) H 01/14/20 19:45 Microbiology 01/20/20 07:16 Blood - Peripheral Venous Blood Culture - Preliminary NO GROWTH OBTAINED AFTER 24 HOURS, INCUBATION TO CONTINUE FOR 4 DAYS. 01/20/20 07:16 Blood - Peripheral Venous Blood Culture - Preliminary NO GROWTH OBTAINED AFTER 24 HOURS, INCUBATION TO CONTINUE FOR 4 DAYS. 01/17/20 07:50 Blood - Peripheral Venous Blood Culture - Preliminary NO GROWTH OBTAINED AFTER 72 HOURS, INCUBATION TO CONTINUE FOR 2 DAYS. 01/17/20 07:40 Blood - Peripheral Venous Blood Culture - Preliminary NO GROWTH OBTAINED AFTER 72 HOURS, INCUBATION TO CONTINUE FOR 2 DAYS. Laboratory Tests 01/21/20 01/21/20 07: 07:20 WBC 7.7 Hgb 9.2 L Plt Count 543 H Sodium 139 Potassium 3.6 Creatinine 0.7 Random Glucose 130 H Assessment/Plan CT chest: mild chronic lung dz with no acute pathology ecg: sr, nl intervals, no ischemic changes mibi 11/2016: no ischemia, lvef 80 echo 12/2019 nl LV function, impaired relaxation, nl RV, mild MR, tr to mild TR, mildly sclerotic AV no dysfunction a/p: 59 m hx htn, pad here with b/l leg pain, fever, bacteremia fever, wound infection, staph bacteremia, sepsis: - s/p redo axillo-fem bypass and removal of infected graft - no vegetation on echo - manage per vascular pad, history of graft thrombosis: - cont plavix, lovenox per vascular htn: -not on meds at home -soft BPs here, monitor ALICIA: - likely prerenal, improved with IVF - renal following Prolonged QT on tele: -stable -Avoid/ minimize QT prolonging drugs
--- NOTE | 2020-01-21 13:05 | PN ---
Progress Note, Physician History of Present Illness: Right Axillo-femoral and femorofemoral bypass Right fem-tibial graft with multiple episodes of graft thrombosis Right groin post op infection ALICIA Bacteremia History of Present Illness: NAD, sitting in chair, worked with PT Denies any N/V Pain improved with pain meds Dressing change this AM by Surgery Operative Date: 01/17/20 Pre-Operative Diagnosis: Prosthetic graft infection Operation: Redo axillo-bifemoral bypass. Excision infected graft. Findings: Purulent material around prosthetic graft at site of recent surgery extending up to upper abdominal segment. Thoracic portion and fem-fem grafts had no evidence for infection. Implants: 6 mm ringed PTFE Propaten Post-Operative Diagnosis: Same as Pre-op Surgeon: Carlos Stoner - Current Medication List Current Medications: Active Medications Acetaminophen (Tylenol -) 1,000 mg PO Q6H PRN PRN Reason: PAIN LEVEL 1 - 3 Aspirin (Asa -) 81 mg PO DAILY [facility] Last Admin: 01/21/20 10:30 Dose: 81 mg Documented by: Atorvastatin Calcium (Lipitor -) 40 mg PO [facility] Last Admin: 01/20/20 21:10 Dose: 40 mg Documented by: Clopidogrel Bisulfate (Plavix -) 75 mg PO DAILY [facility] Last Admin: 01/21/20 10:30 Dose: 75 mg Documented by: Docusate Sodium (Colace -) 300 mg PO [facility] Last Admin: 01/20/20 21:10 Dose: 300 mg Documented by: Enoxaparin Sodium (Lovenox -) 100 mg SQ BID [facility] Last Admin: 01/21/20 10:30 Dose: 100 mg Documented by: Gabapentin (Neurontin -) 300 mg PO BID [facility] Last Admin: 01/21/20 10:30 Dose: 300 mg Documented by: Cefazolin Sodium/Dextrose (Ancef 2 Gm Premixed Ivpb -) 2 gm in 50 mls @ 100 mls/hr IVPB Q8H-IV [facility] Last Admin: 01/21/20 10:30 Dose: 100 mls/hr Documented by: Vancomycin HCl (Vancomycin (Pre-Docked)) 1,000 mg in 250 mls @ 166.667 mls/hr IVPB BID@0700,1900 [facility]; Protocol Last Admin: 01/21/20 06:28 Dose: 166.667 mls/hr Documented by: Metronidazole (Flagyl -) 500 mg PO TID [facility] Last Admin: 01/21/20 06:28 Dose: 500 mg Documented by: Morphine Sulfate (Morphine Sulfate) 2 mg IVPUSH Q4H PRN PRN Reason: PAIN 7-10; IF OXYCODE NT WORK Ondansetron HCl (Zofran Injection) 4 mg IVPUSH Q6H PRN PRN Reason: NAUSEA AND/OR VOMITING Oxycodone HCl (Roxicodone -) 5 mg PO Q4H PRN PRN Reason: PAIN LEVEL 4-6 Last Admin: 01/18/20 23:39 Dose: 5 mg Documented by: Oxycodone HCl (Roxicodone -) 10 mg PO Q3H PRN PRN Reason: PAIN LEVEL 7-10 Pantoprazole Sodium (Protonix -) 40 mg PO DAILY [facility] Last Admin: 01/21/20 10:30 Dose: 40 mg Documented by: Polyethylene Glycol (Miralax (For Daily Use) -) 17 gm PO DAILY PRN PRN Reason: CONSTIPATION Promethazine HCl (Phenergan Injection -) 12.5 mg IVPUSH Q6H PRN PRN Reason: NAUSEA-FOR RESCUE AFTER 15 MIN - Objective Vital Signs: Vital Signs Temperature 98.5 F 01/21/20 05:00 Pulse Rate 85 01/21/20 05:00 Respiratory Rate 18 01/21/20 05:00 Blood Pressure 123/76 01/21/20 05:00 O2 Sat by Pulse Oximetry (%) 95 01/21/20 05:00 Cardiovascular: Yes: S1, S2 Respiratory: Yes: Regular, CTA Bilaterally Gastrointestinal: Yes: Normal Bowel Sounds, Soft Labs: CBC, BMP 01/21/20 07:20 01/21/20 07:20 INR, PTT INR 1.26 (0.83-1.09) H 01/14/20 19:45 Problem List - Problems (1) Sepsis Code(s): A41.9 - SEPSIS, UNSPECIFIED ORGANISM Qualifiers: Sepsis type: sepsis due to unspecified organism Sepsis acute organ dysfunction status: with acute organ dysfunction Severe sepsis acute organ dysfunction type: unspecified Severe sepsis shock status: unspecified Qualified Code(s): A41.9 - Sepsis, unspecified organism; R65.20 - Severe sepsis without septic shock (2) Arterial occlusion, lower extremity Code(s): I70.209 - UNSP ATHSCL [place]HE ARTERIES OF EXTREMITIES, UNSP EXTREMITY (3) ALICIA (acute kidney injury) Code(s): N17.9 - ACUTE KIDNEY FAILURE, UNSPECIFIED (4) Cough Code(s): R05 - COUGH (5) HLD (hyperlipidemia) Code(s): E78.5 - HYPERLIPIDEMIA, UNSPECIFIED Qualifiers: Hyperlipidemia type: pure hypercholesterolemia Qualified Code(s): E78.00 - Pure hypercholesterolemia, unspecified; E78.0 - Pure hypercholesterolemia Assessment/Plan - Problems (1) ALICIA (acute kidney injury) Assessment/Plan: -resolved -Nephrology on board Problems reviewed: Yes Code(s): N17.9 - ACUTE KIDNEY FAILURE, UNSPECIFIED (2) Post-operative infection Assessment/Plan: -ID consult on board -IV Vanco+ Cefazolin---> will need PICC line Microbiology 01/17/20 14:15 Chest Gram Stain - Final 01/14/20 06:45 Blood - Peripheral Venous Blood Culture - Preliminary NO GROWTH OBTAINED AFTER 96 HOURS, INCUBATION TO CONTINUE FOR 1 DAYS. 01/14/20 06:40 Blood - Peripheral Venous Blood Culture - Final Staphylococcus Aureus 01/11/20 05:58 Blood - Peripheral Venous Blood Culture - Final NO GROWTH AFTER 5 DAYS INCUBATION 01/11/20 05:52 Blood - Peripheral Venous Blood Culture - Final NO GROWTH AFTER 5 DAYS INCUBATION 01/09/20 10:10 Thigh - Right Gram Stain - Final 01/09/20 10:10 Thigh - Right Wound Culture - Final Staphylococcus Aureus Finegoldia Magna 01/09/20 09:40 Blood - Peripheral Venous Blood Culture - Final Staphylococcus Latex Coag Pos 01/09/20 09:40 Blood - Peripheral Venous Blood Culture - Final Staphylococcus Aureus 01/09/20 11:50 Urine - Urine Clean Catch Urine Culture - Final NO GROWTH OBTAINED -afebrile -leukocytosis improved Problems reviewed: Yes Code(s): T81.40XA - INFECTION FOLLOWING A PROCEDURE, UNSPECIFIED, INIT Qualifiers: Encounter type: initial encounter Postoperative infection type: unspecified type Qualified Code(s): T81.40XA - Infection following a procedure, unspecified, initial encounter (3) Staphylococcus aureus bacteremia with sepsis Assessment/Plan: as above Problems reviewed: Yes Code(s): A41.01 - SEPSIS DUE TO METHICILLIN SUSCEPTIBLE STAPHYLOCOCCUS AUREUS (4) Arterial occlusion, lower extremity Assessment/Plan: Operative Date: 01/17/20 Pre-Operative Diagnosis: Prosthetic graft infection Operation: Redo axillo-bifemoral bypass. Excision infected graft. Findings: Purulent material around prosthetic graft at site of recent surgery extending up to upper abdominal segment. Thoracic portion and fem-fem grafts had no evidence for infection. Implants: 6 mm ringed PTFE Propaten Post-Operative Diagnosis: Same as Pre-op Surgeon: Carlos Stoner -Seen by Vascular surgery today -Dressing changed by surgery -Next dressing change on Friday -Please administer morphine at least 30 mins prior to dressing change Problems reviewed: Yes Code(s): I70.209 - UNSP ATHSCL [place]HE ARTERIES OF EXTREMITIES, UNSP EXTREMITY (5) HLD (hyperlipidemia) Assessment/Plan: -HDL at 9 -LDL at 35 -Decrease atorvastatin to 40 mg po HS Problems reviewed: Yes Code(s): E78.5 - HYPERLIPIDEMIA, UNSPECIFIED Qualifiers: Hyperlipidemia type: pure hypercholesterolemia Qualified Code(s): E78.00 - Pure hypercholesterolemia, unspecified; E78.0 - Pure hypercholesterolemia (6) Diarrhea Assessment/Plan: -resolved -Last BM 4 days ago -Restarted Miralax daily PRN to avoid OIC -Colace 300 mg po HS Problems reviewed: Yes Code(s): R19.7 - DIARRHEA, UNSPECIFIED
--- NOTE | 2020-01-21 13:20 | PN ---
Progress Note, Physician History of Present Illness: AWAKE, ALERT IN BED NO C/O PAIN AT REST AFEBRILE WBC IMPROVED WNL BC 8/, 8 NO GROWTH OPERATIVE C/S NO GROWTH - Current Medication List Current Medications: Active Medications Acetaminophen (Tylenol -) 1,000 mg PO Q6H PRN PRN Reason: PAIN LEVEL 1 - 3 Aspirin (Asa -) 81 mg PO DAILY [facility] Last Admin: 01/21/20 10:30 Dose: 81 mg Documented by: Atorvastatin Calcium (Lipitor -) 40 mg PO [facility] Last Admin: 01/20/20 21:10 Dose: 40 mg Documented by: Clopidogrel Bisulfate (Plavix -) 75 mg PO DAILY [facility] Last Admin: 01/21/20 10:30 Dose: 75 mg Documented by: Docusate Sodium (Colace -) 300 mg PO [facility] Last Admin: 01/20/20 21:10 Dose: 300 mg Documented by: Enoxaparin Sodium (Lovenox -) 100 mg SQ BID [facility] Last Admin: 01/21/20 10:30 Dose: 100 mg Documented by: Gabapentin (Neurontin -) 300 mg PO BID [facility] Last Admin: 01/21/20 10:30 Dose: 300 mg Documented by: Cefazolin Sodium/Dextrose (Ancef 2 Gm Premixed Ivpb -) 2 gm in 50 mls @ 100 mls/hr IVPB Q8H-IV [facility] Last Admin: 01/21/20 10:30 Dose: 100 mls/hr Documented by: Vancomycin HCl (Vancomycin (Pre-Docked)) 1,000 mg in 250 mls @ 166.667 mls/hr IVPB BID@0700,1900 [facility]; Protocol Last Admin: 01/21/20 06:28 Dose: 166.667 mls/hr Documented by: Metronidazole (Flagyl -) 500 mg PO TID [facility] Last Admin: 01/21/20 06:28 Dose: 500 mg Documented by: Morphine Sulfate (Morphine Sulfate) 2 mg IVPUSH Q4H PRN PRN Reason: PAIN 7-10; IF OXYCODE NT WORK Ondansetron HCl (Zofran Injection) 4 mg IVPUSH Q6H PRN PRN Reason: NAUSEA AND/OR VOMITING Oxycodone HCl (Roxicodone -) 5 mg PO Q4H PRN PRN Reason: PAIN LEVEL 4-6 Last Admin: 01/18/20 23:39 Dose: 5 mg Documented by: Oxycodone HCl (Roxicodone -) 10 mg PO Q3H PRN PRN Reason: PAIN LEVEL 7-10 Pantoprazole Sodium (Protonix -) 40 mg PO DAILY [facility] Last Admin: 01/21/20 10:30 Dose: 40 mg Documented by: Polyethylene Glycol (Miralax (For Daily Use) -) 17 gm PO DAILY PRN PRN Reason: CONSTIPATION Promethazine HCl (Phenergan Injection -) 12.5 mg IVPUSH Q6H PRN PRN Reason: NAUSEA-FOR RESCUE AFTER 15 MIN - Objective Vital Signs: Vital Signs Temperature 98.5 F 01/21/20 05:00 Pulse Rate 85 01/21/20 05:00 Respiratory Rate 18 01/21/20 05:00 Blood Pressure 123/76 01/21/20 05:00 O2 Sat by Pulse Oximetry (%) 95 01/21/20 05:00 Constitutional: Yes: No Distress Eyes: Yes: Conjunctiva Clear Cardiovascular: Yes: Regular Rate and Rhythm, S1, S2 Respiratory: Yes: CTA Bilaterally Gastrointestinal: Yes: Normal Bowel Sounds, Soft. No: Tenderness Edema: No Integumentary: Yes: Other (DRESSING IN PLACE R GROIN/ FLANK) Labs: CBC, BMP 01/21/20 07:20 01/21/20 07:20 INR, PTT INR 1.26 (0.83-1.09) H 01/14/20 19:45 Assessment/Plan POST OP DAY #4 REDO AXILLOFEMORAL BYPASS, EXCISION OF INFECTED PROSTHETIC GRAFT MSSA BACTEREMIA WOUND INFECTION / INFECTED GRAFT FEVER/ LEUKOCYTOSIS IMPROVED COVID -19 NEGATIVE THROMBOCYTOPENIA PCN ALLERGY REPEAT BC 01/16, 01/19 (-) PICC FOR OUTPATIENT ANTIBIOTIC THERAPY CEFAZOLIN 2GM Q8H ADDITIONAL 5 WEEKS
[2020-01-21] MEDS: oxyCODONE HCL 5 MG TABLET PO PRN (13:32)
--- NOTE | 2020-01-21 17:48 | PN ---
Progress Note, Physician History of Present Illness: Pt seen and examined at bedside. he is awake and alert. he denies shortness of breath. - Current Medication List Current Medications: Active Medications Acetaminophen (Tylenol -) 1,000 mg PO Q6H PRN PRN Reason: PAIN LEVEL 1 - 3 Aspirin (Asa -) 81 mg PO DAILY [facility] Last Admin: 01/21/20 10:30 Dose: 81 mg Documented by: Atorvastatin Calcium (Lipitor -) 40 mg PO [facility] Last Admin: 01/20/20 21:10 Dose: 40 mg Documented by: Clopidogrel Bisulfate (Plavix -) 75 mg PO DAILY [facility] Last Admin: 01/21/20 10:30 Dose: 75 mg Documented by: Docusate Sodium (Colace -) 300 mg PO [facility] Last Admin: 01/20/20 21:10 Dose: 300 mg Documented by: Enoxaparin Sodium (Lovenox -) 100 mg SQ BID [facility] Last Admin: 01/21/20 10:30 Dose: 100 mg Documented by: Gabapentin (Neurontin -) 300 mg PO BID [facility] Last Admin: 01/21/20 10:30 Dose: 300 mg Documented by: Cefazolin Sodium/Dextrose (Ancef 2 Gm Premixed Ivpb -) 2 gm in 50 mls @ 100 mls/hr IVPB Q8H-IV [facility] Last Admin: 01/21/20 10:30 Dose: 100 mls/hr Documented by: Vancomycin HCl (Vancomycin (Pre-Docked)) 1,000 mg in 250 mls @ 166.667 mls/hr IVPB BID@0700,1900 [facility]; Protocol Last Admin: 01/21/20 06:28 Dose: 166.667 mls/hr Documented by: Metronidazole (Flagyl -) 500 mg PO TID [facility] Last Admin: 01/21/20 13:32 Dose: 500 mg Documented by: Morphine Sulfate (Morphine Sulfate) 2 mg IVPUSH Q4H PRN PRN Reason: PAIN 7-10; IF OXYCODE NT WORK Oxycodone HCl (Roxicodone -) 5 mg PO Q4H PRN PRN Reason: PAIN LEVEL 4-6 Last Admin: 01/21/20 13:32 Dose: 5 mg Documented by: Oxycodone HCl (Roxicodone -) 10 mg PO Q3H PRN PRN Reason: PAIN LEVEL 7-10 Pantoprazole Sodium (Protonix -) 40 mg PO DAILY [facility] Last Admin: 01/21/20 10:30 Dose: 40 mg Documented by: Polyethylene Glycol (Miralax (For Daily Use) -) 17 gm PO DAILY PRN PRN Reason: CONSTIPATION - Objective Vital Signs: Vital Signs Temperature 98.7 F 01/21/20 14:11 Pulse Rate 72 01/21/20 14:11 Respiratory Rate 18 01/21/20 14:11 Blood Pressure 119/61 01/21/20 14:11 O2 Sat by Pulse Oximetry (%) 95 01/21/20 09:00 Constitutional: Yes: Calm Eyes: Yes: Conjunctiva Clear HENT: Yes: Atraumatic Neck: Yes: Supple Cardiovascular: Yes: S1, S2 Respiratory: Yes: CTA Bilaterally Gastrointestinal: Yes: Soft Genitourinary: Yes: WNL Edema: Yes Edema: LLE: Trace, RLE: Trace Neurological: Yes: Oriented Labs: CBC, BMP 01/21/20 07:20 01/21/20 07:20 INR, PTT INR 1.26 (0.83-1.09) H 01/14/20 19:45 Problem List - Problems (1) ALICIA (acute kidney injury) Code(s): N17.9 - ACUTE KIDNEY FAILURE, UNSPECIFIED (2) Cough Code(s): R05 - COUGH Assessment/Plan Current Medications Generic Name Dose Route Start Last Admin Trade Name Freq PRN Reason Stop Dose Admin Acetaminophen 1,000 mg 01/20/20 09:06 Tylenol - PO Q6H PRN PAIN LEVEL 1 - 3 Aspirin 81 mg 01/19/20 10:00 01/21/20 10:30 Asa - PO 81 mg DAILY [facility] Administration Atorvastatin Calcium 40 mg 01/18/20 22:00 01/20/20 21:10 Lipitor - PO 40 mg HS [facility] Administration Clopidogrel Bisulfate 75 mg 01/19/20 10:00 01/21/20 10:30 Plavix - PO 75 mg DAILY [facility] Administration Docusate Sodium 300 mg 01/20/20 22:00 01/20/20 21:10 Colace - PO 300 mg HS [facility] Administration Enoxaparin Sodium 100 mg 01/18/20 22:00 01/21/20 10:30 Lovenox - SQ 100 mg BID [facility] Administration Gabapentin 300 mg 01/18/20 22:00 01/21/20 10:30 Neurontin - PO 300 mg BID [facility] Administration Cefazolin Sodium/Dextrose 2 gm in 50 mls @ 100 mls/hr 01/18/20 18:00 01/21/20 10:30 Ancef 2 Gm Premixed Ivpb - IVPB 100 mls/hr Q8H-IV [facility] Administration Vancomycin HCl 1,000 mg in 250 mls @ 166.667 mls/hr 01/18/20 19:00 01/21/20 06:28 Vancomycin (Pre-Docked) IVPB 166.667 mls/hr BID@0700,1900 [facility] Administration Protocol Metronidazole 500 mg 01/18/20 22:00 01/21/20 13:32 Flagyl - PO 500 mg TID [facility] Administration Morphine Sulfate 2 mg 01/20/20 11:04 Morphine Sulfate IVPUSH Q4H PRN PAIN 7-10; IF OXYCODE NT WORK Oxycodone HCl 5 mg 01/18/20 16:02 01/21/20 13:32 Roxicodone - PO 5 mg Q4H PRN Administration PAIN LEVEL 4-6 Oxycodone HCl 10 mg 01/20/20 09:04 Roxicodone - PO Q3H PRN PAIN LEVEL 7-10 Pantoprazole Sodium 40 mg 01/19/20 10:00 01/21/20 10:30 Protonix - PO 40 mg DAILY [facility] Administration Polyethylene Glycol 17 gm 01/20/20 11:35 Miralax (For Daily Use) - PO DAILY PRN CONSTIPATION Impression 1. alicia resolved 2. bacteremia 3. htn 4. hld 5. pvd Plan - renal function stable - avoid nsaids - hold of diuretics for now - monitor lytes - will follow PRN
[2020-01-21] MEDS: ATORVASTATIN CA 40 MG TABLET (FP) PO SCH (21:20)
[2020-01-21] MEDS: DOCUSATE SODIUM 100 MG CAPSULE (FP) PO SCH (21:21)
[2020-01-22] MEDS: CEFAZOLIN 2 GM/D5W 2 GM/50 ML ML IVPB SCH ×3 (02:29→18:28)
[2020-01-22] MEDS: metroNIDAZOLE 500 MG TABLET PO SCH ×3 (06:51→21:14)
--- NOTE | 2020-01-22 08:01 | PN ---
Progress Note, Physician History of Present Illness: pulmonary alert,comfortable,-c/o sob - Current Medication List Current Medications: Active Medications Acetaminophen (Tylenol -) 1,000 mg PO Q6H PRN PRN Reason: PAIN LEVEL 1 - 3 Aspirin (Asa -) 81 mg PO DAILY [facility] Last Admin: 01/21/20 10:30 Dose: 81 mg Documented by: Atorvastatin Calcium (Lipitor -) 40 mg PO [facility] Last Admin: 01/21/20 21:20 Dose: 40 mg Documented by: Clopidogrel Bisulfate (Plavix -) 75 mg PO DAILY [facility] Last Admin: 01/21/20 10:30 Dose: 75 mg Documented by: Docusate Sodium (Colace -) 300 mg PO [facility] Last Admin: 01/21/20 21:21 Dose: 300 mg Documented by: Enoxaparin Sodium (Lovenox -) 100 mg SQ BID [facility] Last Admin: 01/21/20 21:21 Dose: 100 mg Documented by: Gabapentin (Neurontin -) 300 mg PO BID [facility] Last Admin: 01/21/20 21:21 Dose: 300 mg Documented by: Cefazolin Sodium/Dextrose (Ancef 2 Gm Premixed Ivpb -) 2 gm in 50 mls @ 100 mls/hr IVPB Q8H-IV [facility] Last Admin: 01/22/20 02:29 Dose: 100 mls/hr Documented by: Vancomycin HCl (Vancomycin (Pre-Docked)) 1,000 mg in 250 mls @ 166.667 mls/hr IVPB BID@0700,1900 [facility]; Protocol Last Admin: 01/21/20 18:19 Dose: 166.667 mls/hr Documented by: Metronidazole (Flagyl -) 500 mg PO TID [facility] Last Admin: 01/22/20 06:51 Dose: 500 mg Documented by: Morphine Sulfate (Morphine Sulfate) 2 mg IVPUSH Q4H PRN PRN Reason: PAIN 7-10; IF OXYCODE NT WORK Oxycodone HCl (Roxicodone -) 5 mg PO Q4H PRN PRN Reason: PAIN LEVEL 4-6 Last Admin: 01/21/20 13:32 Dose: 5 mg Documented by: Oxycodone HCl (Roxicodone -) 10 mg PO Q3H PRN PRN Reason: PAIN LEVEL 7-10 Pantoprazole Sodium (Protonix -) 40 mg PO DAILY [facility] Last Admin: 01/21/20 10:30 Dose: 40 mg Documented by: Polyethylene Glycol (Miralax (For Daily Use) -) 17 gm PO DAILY PRN PRN Reason: CONSTIPATION - Objective Vital Signs: Vital Signs Temperature 98.6 F 01/22/20 06:00 Pulse Rate 77 01/22/20 06:00 Respiratory Rate 18 01/22/20 06:00 Blood Pressure 122/62 01/22/20 06:00 O2 Sat by Pulse Oximetry (%) 93 L 01/22/20 06:00 Constitutional: Yes: Well Nourished, Calm Eyes: Yes: WNL HENT: Yes: WNL Neck: Yes: WNL Cardiovascular: Yes: Regular Rate and Rhythm, S1, S2 Respiratory: Yes: Diminished Gastrointestinal: Yes: Normal Bowel Sounds, Soft Extremities: Yes: WNL Edema: No Labs: CBC, BMP Problem List - Problems (1) Staphylococcus aureus bacteremia with sepsis Code(s): A41.01 - SEPSIS DUE TO METHICILLIN SUSCEPTIBLE STAPHYLOCOCCUS AUREUS (2) ALICIA (acute kidney injury) Code(s): N17.9 - ACUTE KIDNEY FAILURE, UNSPECIFIED (3) Cough Code(s): R05 - COUGH (4) HLD (hyperlipidemia) Code(s): E78.5 - HYPERLIPIDEMIA, UNSPECIFIED Qualifiers: Hyperlipidemia type: pure hypercholesterolemia Qualified Code(s): E78.00 - Pure hypercholesterolemia, unspecified; E78.0 - Pure hypercholesterolemia Assessment/Plan Assessment/Plan Staph Bacteremia/Infected Graft s/p Redo Axillo-Bifemoral Bypass Wound Infection Sepsis Acute Kidney Injury resolved Hyponatremia PAD HTN Hyperlipidemia Anemia - Pain control - antibiotics - monitor urine output, creatinine - ASA, plavix - continue anticoagulation - wound care - O2 to keep Spo2 >90% DR GONG
--- NOTE | 2020-01-22 08:38 | PN ---
Progress Note, Physician - Current Medication List Current Medications: Active Medications Acetaminophen (Tylenol -) 1,000 mg PO Q6H PRN PRN Reason: PAIN LEVEL 1 - 3 Aspirin (Asa -) 81 mg PO DAILY [facility] Last Admin: 01/21/20 10:30 Dose: 81 mg Documented by: Atorvastatin Calcium (Lipitor -) 40 mg PO [facility] Last Admin: 01/21/20 21:20 Dose: 40 mg Documented by: Clopidogrel Bisulfate (Plavix -) 75 mg PO DAILY [facility] Last Admin: 01/21/20 10:30 Dose: 75 mg Documented by: Docusate Sodium (Colace -) 300 mg PO [facility] Last Admin: 01/21/20 21:21 Dose: 300 mg Documented by: Enoxaparin Sodium (Lovenox -) 100 mg SQ BID [facility] Last Admin: 01/21/20 21:21 Dose: 100 mg Documented by: Gabapentin (Neurontin -) 300 mg PO BID [facility] Last Admin: 01/21/20 21:21 Dose: 300 mg Documented by: Cefazolin Sodium/Dextrose (Ancef 2 Gm Premixed Ivpb -) 2 gm in 50 mls @ 100 mls/hr IVPB Q8H-IV [facility] Last Admin: 01/22/20 02:29 Dose: 100 mls/hr Documented by: Vancomycin HCl (Vancomycin (Pre-Docked)) 1,000 mg in 250 mls @ 166.667 mls/hr IVPB BID@0700,1900 [facility]; Protocol Last Admin: 01/21/20 18:19 Dose: 166.667 mls/hr Documented by: Metronidazole (Flagyl -) 500 mg PO TID [facility] Last Admin: 01/22/20 06:51 Dose: 500 mg Documented by: Morphine Sulfate (Morphine Sulfate) 2 mg IVPUSH Q4H PRN PRN Reason: PAIN 7-10; IF OXYCODE NT WORK Oxycodone HCl (Roxicodone -) 5 mg PO Q4H PRN PRN Reason: PAIN LEVEL 4-6 Last Admin: 01/21/20 13:32 Dose: 5 mg Documented by: Oxycodone HCl (Roxicodone -) 10 mg PO Q3H PRN PRN Reason: PAIN LEVEL 7-10 Pantoprazole Sodium (Protonix -) 40 mg PO DAILY [facility] Last Admin: 08/07/20 10:30 Dose: 40 mg Documented by: Polyethylene Glycol (Miralax (For Daily Use) -) 17 gm PO DAILY PRN PRN Reason: CONSTIPATION - Objective Vital Signs: Vital Signs Temperature 98.6 F 01/22/20 06:00 Pulse Rate 77 01/22/20 06:00 Respiratory Rate 18 01/22/20 06:00 Blood Pressure 122/62 01/22/20 06:00 O2 Sat by Pulse Oximetry (%) 93 L 01/22/20 06:00 Cardiovascular: Yes: Regular Rate and Rhythm Respiratory: Yes: Regular, CTA Bilaterally Gastrointestinal: Yes: Normal Bowel Sounds, Soft Labs: CBC, BMP 01/21/20 07:20 01/21/20 07:20 INR, PTT INR 1.26 (0.83-1.09) H 01/14/20 19:45 Problem List - Problems (1) Sepsis Code(s): A41.9 - SEPSIS, UNSPECIFIED ORGANISM Qualifiers: Sepsis type: sepsis due to unspecified organism Sepsis acute organ dysfunction status: with acute organ dysfunction Severe sepsis acute organ dysfunction type: unspecified Severe sepsis shock status: unspecified Qualified Code(s): A41.9 - Sepsis, unspecified organism; R65.20 - Severe sepsis without septic shock (2) Arterial occlusion, lower extremity Code(s): I70.209 - UNSP ATHSCL [place] ARTERIES OF EXTREMITIES, UNSP EXTREMITY (3) ALICIA (acute kidney injury) Code(s): N17.9 - ACUTE KIDNEY FAILURE, UNSPECIFIED (4) Cough Code(s): R05 - COUGH (5) HLD (hyperlipidemia) Code(s): E78.5 - HYPERLIPIDEMIA, UNSPECIFIED Qualifiers: Hyperlipidemia type: pure hypercholesterolemia Qualified Code(s): E78.00 - Pure hypercholesterolemia, unspecified; E78.0 - Pure hypercholesterolemia Assessment/Plan - Problems (1) ALICIA (acute kidney injury) Assessment/Plan: -resolved -Nephrology on board Problems reviewed: Yes Code(s): N17.9 - ACUTE KIDNEY FAILURE, UNSPECIFIED (2) Post-operative infection Assessment/Plan: -ID consult on board -IV Vanco+ Cefazolin---> will need PICC line Microbiology 01/17/20 14:15 Chest Gram Stain - Final 01/14/20 06:45 Blood - Peripheral Venous Blood Culture - Preliminary NO GROWTH OBTAINED AFTER 96 HOURS, INCUBATION TO CONTINUE FOR 1 DAYS. 01/14/20 06:40 Blood - Peripheral Venous Blood Culture - Final Staphylococcus Aureus 01/11/20 05:58 Blood - Peripheral Venous Blood Culture - Final NO GROWTH AFTER 5 DAYS INCUBATION 01/11/20 05:52 Blood - Peripheral Venous Blood Culture - Final NO GROWTH AFTER 5 DAYS INCUBATION 01/09/20 10:10 Thigh - Right Gram Stain - Final 01/09/20 10:10 Thigh - Right Wound Culture - Final Staphylococcus Aureus Finegoldia Magna 01/09/20 09:40 Blood - Peripheral Venous Blood Culture - Final Staphylococcus Latex Coag Pos 01/09/20 09:40 Blood - Peripheral Venous Blood Culture - Final Staphylococcus Aureus 01/09/20 11:50 Urine - Urine Clean Catch Urine Culture - Final NO GROWTH OBTAINED -afebrile -leukocytosis improved Problems reviewed: Yes Code(s): T81.40XA - INFECTION FOLLOWING A PROCEDURE, UNSPECIFIED, INIT Qualifiers: Encounter type: initial encounter Postoperative infection type: unspecified type Qualified Code(s): T81.40XA - Infection following a procedure, unspecified, initial encounter (3) Staphylococcus aureus bacteremia with sepsis Assessment/Plan: as above Problems reviewed: Yes Code(s): A41.01 - SEPSIS DUE TO METHICILLIN SUSCEPTIBLE STAPHYLOCOCCUS AUREUS (4) Arterial occlusion, lower extremity Assessment/Plan: Operative Date: 01/17/20 Pre-Operative Diagnosis: Prosthetic graft infection Operation: Redo axillo-bifemoral bypass. Excision infected graft. Findings: Purulent material around prosthetic graft at site of recent surgery extending up to upper abdominal segment. Thoracic portion and fem-fem grafts had no evidence for infection. Implants: 6 mm ringed PTFE Propaten Post-Operative Diagnosis: Same as Pre-op Surgeon: Carlos Stoner -Seen by Vascular surgery today -Dressing changed by surgery -Next dressing change on Friday -Please administer morphine at least 30 mins prior to dressing change Problems reviewed: Yes Code(s): I70.209 - UNSP ATHSCL [place] ARTERIES OF EXTREMITIES, UNSP EXTREMITY (5) HLD (hyperlipidemia) Assessment/Plan: -HDL at 9 -LDL at 35 -Decrease atorvastatin to 40 mg po HS Problems reviewed: Yes Code(s): E78.5 - HYPERLIPIDEMIA, UNSPECIFIED Qualifiers: Hyperlipidemia type: pure hypercholesterolemia Qualified Code(s): E78.00 - Pure hypercholesterolemia, unspecified; E78.0 - Pure hypercholesterolemia (6) Diarrhea Assessment/Plan: -resolved -Last BM 4 days ago -Restarted Miralax daily PRN to avoid OIC -Colace 300 mg po HS Problems reviewed: Yes Code(s): R19.7 - DIARRHEA, UNSPECIFIED
[2020-01-22] MEDS: VANCOMYCIN 1 GRAM (PRE-DOCKED) 1,000 MG/250 ML BAG IVPB SCH ×2 (09:47→20:55)
[2020-01-22] MEDS ORDERED: PT OWN MED DRAWER 7, Y5N ONE ×3 (10:58→21:06)
[2020-01-22] MEDS: ASPIRIN 81 MG CHEWABLE TABLETS PO SCH (11:07)
[2020-01-22] MEDS: PANTOPRAZOLE 40 MG TABLET PO SCH (11:07)
[2020-01-22] MEDS: GABAPENTIN 300 MG CAPSULE PO SCH ×2 (11:07→21:14)
[2020-01-22] MEDS: ENOXAPARIN NA (PORCINE) 100 MG/1 ML DISP.SYRIN SQ SCH ×2 (11:07→21:15)
[2020-01-22] MEDS: CLOPIDOGREL BISULFATE 75 MG TABLET (FP) PO SCH (11:07)
--- NOTE | 2020-01-22 12:16 | PN ---
Progress Note (short form) - Note Progress Note: No new complaints Afeb Feet warm Stapled wounds clean and dry Open wounds with serous drainage, bases clean, no pus Continue IV abx Packing change QOD Increase activity
--- NOTE | 2020-01-22 13:01 | PN ---
Progress Note (short form) - Note Progress Note: cc: leg pain s: no cp, sob, palps Current Medications Generic Name Dose Route Start Last Admin Trade Name Freq PRN Reason Stop Dose Admin Acetaminophen 1,000 mg 01/20/20 09:06 Tylenol - PO Q6H PRN PAIN LEVEL 1 - 3 Aspirin 81 mg 01/19/20 10:00 01/22/20 11:07 Asa - PO 81 mg DAILY [facility] Administration Atorvastatin Calcium 40 mg 01/18/20 22:00 01/21/20 21:20 Lipitor - PO 40 mg HS [facility] Administration Clopidogrel Bisulfate 75 mg 01/19/20 10:00 01/22/20 11:07 Plavix - PO 75 mg DAILY [facility] Administration Docusate Sodium 300 mg 01/20/20 22:00 01/21/20 21:21 Colace - PO 300 mg HS [facility] Administration Enoxaparin Sodium 100 mg 01/18/20 22:00 01/22/20 11:07 Lovenox - SQ 100 mg BID [facility] Administration Gabapentin 300 mg 01/18/20 22:00 01/22/20 11:07 Neurontin - PO 300 mg BID [facility] Administration Cefazolin Sodium/Dextrose 2 gm in 50 mls @ 100 mls/hr 01/18/20 18:00 01/22/20 11:08 Ancef 2 Gm Premixed Ivpb - IVPB 100 mls/hr Q8H-IV [facility] Administration Vancomycin HCl 1,000 mg in 250 mls @ 166.667 mls/hr 01/18/20 19:00 01/22/20 09:47 Vancomycin (Pre-Docked) IVPB 166.667 mls/hr BID@0700,1900 [facility] Administration Protocol Metronidazole 500 mg 01/18/20 22:00 01/22/20 06:51 Flagyl - PO 500 mg TID [facility] Administration Morphine Sulfate 2 mg 01/20/20 11:04 01/22/20 12:02 Morphine Sulfate IVPUSH 2 mg Q4H PRN Administration PAIN 7-10; IF OXYCODE NT WORK Oxycodone HCl 5 mg 01/18/20 16:02 01/21/20 13:32 Roxicodone - PO 5 mg Q4H PRN Administration PAIN LEVEL 4-6 Oxycodone HCl 10 mg 01/20/20 09:04 Roxicodone - PO Q3H PRN PAIN LEVEL 7-10 Pantoprazole Sodium 40 mg 01/19/20 10:00 01/22/20 11:07 Protonix - PO 40 mg DAILY [facility] Administration Polyethylene Glycol 17 gm 01/20/20 11:35 Miralax (For Daily Use) - PO DAILY PRN CONSTIPATION Vital Signs Period Temp Pulse Resp BP Sys/White Pulse Ox Last 24 Hr 97.6 F-98.7 F 72-85 18-18 104-126/57-68 93-93 Constitutional: Yes: No Distress, Calm Cardiovascular: Yes: Regular Rate and Rhythm Respiratory: Yes: CTA Bilaterally (no rales or wheezing) Gastrointestinal: Yes: Soft (nt) Edema: No AOx3 no jaundice, diaphoresis not agitated Assessment/Plan CT chest: mild chronic lung dz with no acute pathology ecg: sr, nl intervals, no ischemic changes mibi 11/2016: no ischemia, lvef 80 echo 12/2019 nl LV function, impaired relaxation, nl RV, mild MR, tr to mild TR, mildly sclerotic AV no dysfunction a/p: 60 m hx htn, pad here with b/l leg pain, fever, bacteremia fever, wound infection, staph bacteremia, sepsis: - s/p redo axillo-fem bypass and removal of infected graft - no vegetation on echo - manage per vascular pad, history of graft thrombosis: - cont plavix, lovenox per vascular htn: -not on meds at home, stable here ALICIA: - likely prerenal, improved with IVF - renal following Prolonged QT on tele: -stable -Avoid/ minimize QT prolonging drugs
[2020-01-22] MEDS: ATORVASTATIN CA 40 MG TABLET (FP) PO SCH (21:14)
[2020-01-22] MEDS: DOCUSATE SODIUM 100 MG CAPSULE (FP) PO SCH (21:14)
[2020-01-23] MEDS: CEFAZOLIN 2 GM/D5W 2 GM/50 ML ML IVPB SCH ×3 (01:01→17:53)
[2020-01-23] MEDS: metroNIDAZOLE 500 MG TABLET PO SCH ×3 (06:03→21:03)
--- NOTE | 2020-01-23 07:16 | PN ---
Progress Note, Physician History of Present Illness: pulmonary alert,no c/o sob,-cp - Current Medication List Current Medications: Active Medications Acetaminophen (Tylenol -) 1,000 mg PO Q6H PRN PRN Reason: PAIN LEVEL 1 - 3 Aspirin (Asa -) 81 mg PO DAILY [facility] Last Admin: 01/22/20 11:07 Dose: 81 mg Documented by: Atorvastatin Calcium (Lipitor -) 40 mg PO [facility] Last Admin: 01/22/20 21:14 Dose: 40 mg Documented by: Clopidogrel Bisulfate (Plavix -) 75 mg PO DAILY [facility] Last Admin: 01/22/20 11:07 Dose: 75 mg Documented by: Docusate Sodium (Colace -) 300 mg PO [facility] Last Admin: 01/22/20 21:14 Dose: 300 mg Documented by: Enoxaparin Sodium (Lovenox -) 100 mg SQ BID [facility] Last Admin: 01/22/20 21:15 Dose: 100 mg Documented by: Gabapentin (Neurontin -) 300 mg PO BID [facility] Last Admin: 01/22/20 21:14 Dose: 300 mg Documented by: Cefazolin Sodium/Dextrose (Ancef 2 Gm Premixed Ivpb -) 2 gm in 50 mls @ 100 mls/hr IVPB Q8H-IV [facility] Last Admin: 01/23/20 01:01 Dose: 100 mls/hr Documented by: Vancomycin HCl (Vancomycin (Pre-Docked)) 1,000 mg in 250 mls @ 166.667 mls/hr IVPB BID@0700,1900 [facility]; Protocol Last Admin: 01/22/20 20:55 Dose: 166.667 mls/hr Documented by: Metronidazole (Flagyl -) 500 mg PO TID [facility] Last Admin: 01/23/20 06:03 Dose: 500 mg Documented by: Morphine Sulfate (Morphine Sulfate) 2 mg IVPUSH Q4H PRN PRN Reason: PAIN 7-10; IF OXYCODE NT WORK Last Admin: 01/22/20 12:02 Dose: 2 mg Documented by: Oxycodone HCl (Roxicodone -) 5 mg PO Q4H PRN PRN Reason: PAIN LEVEL 4-6 Last Admin: 01/21/20 13:32 Dose: 5 mg Documented by: Oxycodone HCl (Roxicodone -) 10 mg PO Q3H PRN PRN Reason: PAIN LEVEL 7-10 Pantoprazole Sodium (Protonix -) 40 mg PO DAILY [facility] Last Admin: 01/22/20 11:07 Dose: 40 mg Documented by: Polyethylene Glycol (Miralax (For Daily Use) -) 17 gm PO DAILY PRN PRN Reason: CONSTIPATION - Objective Vital Signs: Vital Signs Temperature 97.9 F 01/23/20 06:03 Pulse Rate 72 01/23/20 06:03 Respiratory Rate 20 01/23/20 06:03 Blood Pressure 118/82 01/23/20 06:03 O2 Sat by Pulse Oximetry (%) 93 L 01/23/20 06:03 Constitutional: Yes: Well Nourished, Calm Eyes: Yes: WNL HENT: Yes: WNL Neck: Yes: WNL Cardiovascular: Yes: Regular Rate and Rhythm, S1, S2 Respiratory: Yes: CTA Bilaterally Gastrointestinal: Yes: Normal Bowel Sounds, Soft Extremities: Yes: WNL Edema: No Labs: CBC, BMP Problem List - Problems (1) Staphylococcus aureus bacteremia with sepsis Code(s): A41.01 - SEPSIS DUE TO METHICILLIN SUSCEPTIBLE STAPHYLOCOCCUS AUREUS (2) ALICIA (acute kidney injury) Code(s): N17.9 - ACUTE KIDNEY FAILURE, UNSPECIFIED (3) Cough Code(s): R05 - COUGH (4) HLD (hyperlipidemia) Code(s): E78.5 - HYPERLIPIDEMIA, UNSPECIFIED Qualifiers: Hyperlipidemia type: pure hypercholesterolemia Qualified Code(s): E78.00 - Pure hypercholesterolemia, unspecified; E78.0 - Pure hypercholesterolemia Assessment/Plan Assessment/Plan Staph Bacteremia/Infected Graft s/p Redo Axillo-Bifemoral Bypass Wound Infection Sepsis Acute Kidney Injury resolved Hyponatremia PAD HTN Hyperlipidemia Anemia - Pain control - antibiotics - monitor urine output, creatinine - ASA, plavix - continue anticoagulation - wound care - O2 to keep Spo2 >90% DR GONG
[2020-01-23] MEDS: VANCOMYCIN 1 GRAM (PRE-DOCKED) 1,000 MG/250 ML BAG IVPB SCH ×2 (08:16→18:20)
[2020-01-23] MEDS ORDERED: PT OWN MED DRAWER 7, Y5N ONE ×4 (09:10→20:01)
[2020-01-23] MEDS: ENOXAPARIN NA (PORCINE) 100 MG/1 ML DISP.SYRIN SQ SCH ×2 (09:38→21:02)
[2020-01-23] MEDS: PANTOPRAZOLE 40 MG TABLET PO SCH (09:39)
[2020-01-23] MEDS: ASPIRIN 81 MG CHEWABLE TABLETS PO SCH (09:39)
[2020-01-23] MEDS: GABAPENTIN 300 MG CAPSULE PO SCH ×2 (09:39→21:02)
[2020-01-23] MEDS: CLOPIDOGREL BISULFATE 75 MG TABLET (FP) PO SCH (09:39)
--- NOTE | 2020-01-23 09:58 | PN ---
Progress Note, Physician - Current Medication List Current Medications: Active Medications Acetaminophen (Tylenol -) 1,000 mg PO Q6H PRN PRN Reason: PAIN LEVEL 1 - 3 Aspirin (Asa -) 81 mg PO DAILY [facility] Last Admin: 01/23/20 09:39 Dose: 81 mg Documented by: Atorvastatin Calcium (Lipitor -) [address] [facility] Last Admin: 01/22/20 21:14 Dose: 40 mg Documented by: Clopidogrel Bisulfate (Plavix -) 75 mg PO DAILY [facility] Last Admin: 01/23/20 09:39 Dose: 75 mg Documented by: Docusate Sodium (Colace -) [address] [facility] Last Admin: 01/22/20 21:14 Dose: 300 mg Documented by: Enoxaparin Sodium (Lovenox -) 100 mg SQ BID [facility] Last Admin: 01/23/20 09:38 Dose: 100 mg Documented by: Gabapentin (Neurontin -) 300 mg PO BID [facility] Last Admin: 01/23/20 09:39 Dose: 300 mg Documented by: Cefazolin Sodium/Dextrose (Ancef 2 Gm Premixed Ivpb -) 2 gm in 50 mls @ 100 mls/hr IVPB Q8H-IV [facility] Last Admin: 01/23/20 09:39 Dose: 100 mls/hr Documented by: Vancomycin HCl (Vancomycin (Pre-Docked)) 1,000 mg in 250 mls @ 166.667 mls/hr IVPB BID@0700,1900 [facility]; Protocol Last Admin: 01/23/20 08:16 Dose: 166.667 mls/hr Documented by: Metronidazole (Flagyl -) 500 mg PO TID [facility] Last Admin: 01/23/20 06:03 Dose: 500 mg Documented by: Morphine Sulfate (Morphine Sulfate) 2 mg IVPUSH Q4H PRN PRN Reason: PAIN 7-10; IF OXYCODE NT WORK Last Admin: 01/22/20 12:02 Dose: 2 mg Documented by: Oxycodone HCl (Roxicodone -) 5 mg PO Q4H PRN PRN Reason: PAIN LEVEL 4-6 Last Admin: 01/21/20 13:32 Dose: 5 mg Documented by: Oxycodone HCl (Roxicodone -) 10 mg PO Q3H PRN PRN Reason: PAIN LEVEL 7-10 Pantoprazole Sodium (Protonix -) 40 mg PO DAILY [facility] Last Admin: 01/23/20 09:39 Dose: 40 mg Documented by: Polyethylene Glycol (Miralax (For Daily Use) -) 17 gm PO DAILY PRN PRN Reason: CONSTIPATION - Objective Vital Signs: Vital Signs Temperature 97.9 F 01/23/20 06:03 Pulse Rate 72 01/23/20 06:03 Respiratory Rate 20 01/23/20 06:03 Blood Pressure 118/82 01/23/20 06:03 O2 Sat by Pulse Oximetry (%) 93 L 01/23/20 06:03 Labs: CBC, BMP 01/21/20 07:20 01/21/20 07:20 INR, PTT INR 1.26 (0.83-1.09) H 01/14/20 19:45 Problem List - Problems (1) Sepsis Code(s): A41.9 - SEPSIS, UNSPECIFIED ORGANISM Qualifiers: Sepsis type: sepsis due to unspecified organism Sepsis acute organ dysfunction status: with acute organ dysfunction Severe sepsis acute organ dysfunction type: unspecified Severe sepsis shock status: unspecified Qualified Code(s): A41.9 - Sepsis, unspecified organism; R65.20 - Severe sepsis without septic shock (2) Arterial occlusion, lower extremity Code(s): I70.209 - UNSP ATHSCL [place] ARTERIES OF EXTREMITIES, UNSP EXTREMITY (3) ALICIA (acute kidney injury) Code(s): N17.9 - ACUTE KIDNEY FAILURE, UNSPECIFIED (4) Cough Code(s): R05 - COUGH (5) HLD (hyperlipidemia) Code(s): E78.5 - HYPERLIPIDEMIA, UNSPECIFIED Qualifiers: Hyperlipidemia type: pure hypercholesterolemia Qualified Code(s): E78.00 - Pure hypercholesterolemia, unspecified; E78.0 - Pure hypercholesterolemia
--- NOTE | 2020-01-23 11:13 | PN ---
Progress Note (short form) - Note Progress Note: cc: leg pain s: no cp, sob, palps Current Medications Generic Name Dose Route Start Last Admin Trade Name Freq PRN Reason Stop Dose Admin Acetaminophen 1,000 mg 01/20/20 09:06 Tylenol - PO Q6H PRN PAIN LEVEL 1 - 3 Aspirin 81 mg 01/19/20 10:00 01/23/20 09:39 Asa - PO 81 mg DAILY [facility] Administration Atorvastatin Calcium 40 mg 01/18/20 22:00 01/22/20 21:14 Lipitor - PO 40 mg HS [facility] Administration Clopidogrel Bisulfate 75 mg 01/19/20 10:00 01/23/20 09:39 Plavix - PO 75 mg DAILY [facility] Administration Docusate Sodium 300 mg 01/20/20 22:00 01/22/20 21:14 Colace - PO 300 mg HS [facility] Administration Enoxaparin Sodium 100 mg 01/18/20 22:00 01/23/20 09:38 Lovenox - SQ 100 mg BID [facility] Administration Gabapentin 300 mg 01/18/20 22:00 01/23/20 09:39 Neurontin - PO 300 mg BID [facility] Administration Cefazolin Sodium/Dextrose 2 gm in 50 mls @ 100 mls/hr 01/18/20 18:00 01/23/20 09:39 Ancef 2 Gm Premixed Ivpb - IVPB 100 mls/hr Q8H-IV [facility] Administration Vancomycin HCl 1,000 mg in 250 mls @ 166.667 mls/hr 01/18/20 19:00 01/23/20 08:16 Vancomycin (Pre-Docked) IVPB 166.667 mls/hr BID@0700,1900 [facility] Administration Protocol Metronidazole 500 mg 01/18/20 22:00 01/23/20 06:03 Flagyl - PO 500 mg TID [facility] Administration Morphine Sulfate 2 mg 01/20/20 11:04 01/22/20 12:02 Morphine Sulfate IVPUSH 2 mg Q4H PRN Administration PAIN 7-10; IF OXYCODE NT WORK Oxycodone HCl 5 mg 01/18/20 16:02 01/21/20 13:32 Roxicodone - PO 5 mg Q4H PRN Administration PAIN LEVEL 4-6 Oxycodone HCl 10 mg 01/20/20 09:04 Roxicodone - PO Q3H PRN PAIN LEVEL 7-10 Pantoprazole Sodium 40 mg 01/19/20 10:00 01/23/20 09:39 Protonix - PO 40 mg DAILY [facility] Administration Polyethylene Glycol 17 gm 01/20/20 11:35 Miralax (For Daily Use) - PO DAILY PRN CONSTIPATION Vital Signs Period Temp Pulse Resp BP Sys/White Pulse Ox Last 24 Hr 97.9 F-98.2 F 72-76 18-20 102-118/56-82 93-95 Constitutional: Yes: No Distress, Calm Cardiovascular: Yes: Regular Rate and Rhythm Respiratory: Yes: CTA Bilaterally (no rales or wheezing) Gastrointestinal: Yes: Soft (nt) Edema: No AOx3 no jaundice, diaphoresis not agitated Assessment/Plan CT chest: mild chronic lung dz with no acute pathology ecg: sr, nl intervals, no ischemic changes mibi 11/2016: no ischemia, lvef 80 echo 12/2019 nl LV function, impaired relaxation, nl RV, mild MR, tr to mild TR, mildly sclerotic AV no dysfunction a/p: 59 m hx htn, pad here with b/l leg pain, fever, bacteremia fever, wound infection, staph bacteremia, sepsis: - s/p redo axillo-fem bypass and removal of infected graft - no vegetation on echo - manage per vascular pad, history of graft thrombosis: - cont plavix, lovenox per vascular htn: -not on meds at home, stable here ALICIA: - likely prerenal, improved with IVF - renal following Prolonged QT on tele: -stable -Avoid/ minimize QT prolonging drugs
--- NOTE | 2020-01-23 11:29 | PN ---
Progress Note, Physician - Current Medication List Current Medications: Active Medications Acetaminophen (Tylenol -) 1,000 mg PO Q6H PRN PRN Reason: PAIN LEVEL 1 - 3 Aspirin (Asa -) 81 mg PO DAILY [facility] Last Admin: 01/23/20 09:39 Dose: 81 mg Documented by: Atorvastatin Calcium (Lipitor -) 40 mg PO [facility] Last Admin: 01/22/20 21:14 Dose: 40 mg Documented by: Clopidogrel Bisulfate (Plavix -) 75 mg PO DAILY [facility] Last Admin: 01/23/20 09:39 Dose: 75 mg Documented by: Docusate Sodium (Colace -) 300 mg PO [facility] Last Admin: 01/22/20 21:14 Dose: 300 mg Documented by: Enoxaparin Sodium (Lovenox -) 100 mg SQ BID [facility] Last Admin: 01/23/20 09:38 Dose: 100 mg Documented by: Gabapentin (Neurontin -) 300 mg PO BID [facility] Last Admin: 01/23/20 09:39 Dose: 300 mg Documented by: Cefazolin Sodium/Dextrose (Ancef 2 Gm Premixed Ivpb -) 2 gm in 50 mls @ 100 mls/hr IVPB Q8H-IV [facility] Last Admin: 01/23/20 09:39 Dose: 100 mls/hr Documented by: Vancomycin HCl (Vancomycin (Pre-Docked)) 1,000 mg in 250 mls @ 166.667 mls/hr IVPB BID@0700,1900 [facility]; Protocol Last Admin: 01/23/20 08:16 Dose: 166.667 mls/hr Documented by: Metronidazole (Flagyl -) 500 mg PO TID [facility] Last Admin: 01/23/20 06:03 Dose: 500 mg Documented by: Morphine Sulfate (Morphine Sulfate) 2 mg IVPUSH Q4H PRN PRN Reason: PAIN 7-10; IF OXYCODE NT WORK Last Admin: 01/22/20 12:02 Dose: 2 mg Documented by: Oxycodone HCl (Roxicodone -) 5 mg PO Q4H PRN PRN Reason: PAIN LEVEL 4-6 Last Admin: 01/21/20 13:32 Dose: 5 mg Documented by: Oxycodone HCl (Roxicodone -) 10 mg PO Q3H PRN PRN Reason: PAIN LEVEL 7-10 Pantoprazole Sodium (Protonix -) 40 mg PO DAILY [facility] Last Admin: 01/23/20 09:39 Dose: 40 mg Documented by: Polyethylene Glycol (Miralax (For Daily Use) -) 17 gm PO DAILY PRN PRN Reason: CONSTIPATION - Objective Vital Signs: Vital Signs Temperature 97.9 F 01/23/20 06:03 Pulse Rate 72 01/23/20 06:03 Respiratory Rate 20 01/23/20 06:03 Blood Pressure 118/82 01/23/20 06:03 O2 Sat by Pulse Oximetry (%) 95 01/23/20 09:00 Cardiovascular: Yes: S1, S2 Respiratory: Yes: Regular, CTA Bilaterally Gastrointestinal: Yes: Normal Bowel Sounds, Soft Labs: CBC, BMP 01/21/20 07:20 01/21/20 07:20 INR, PTT INR 1.26 (0.83-1.09) H 01/14/20 19:45 Problem List - Problems (1) Sepsis Code(s): A41.9 - SEPSIS, UNSPECIFIED ORGANISM Qualifiers: Sepsis type: sepsis due to unspecified organism Sepsis acute organ dysfunction status: with acute organ dysfunction Severe sepsis acute organ dysfunction type: unspecified Severe sepsis shock status: unspecified Qualified Code(s): A41.9 - Sepsis, unspecified organism; R65.20 - Severe sepsis without septic shock (2) Arterial occlusion, lower extremity Code(s): I70.209 - UNSP ATHSCL [place] ARTERIES OF EXTREMITIES, UNSP EXTREMITY (3) ALICIA (acute kidney injury) Code(s): N17.9 - ACUTE KIDNEY FAILURE, UNSPECIFIED (4) Cough Code(s): R05 - COUGH (5) HLD (hyperlipidemia) Code(s): E78.5 - HYPERLIPIDEMIA, UNSPECIFIED Qualifiers: Hyperlipidemia type: pure hypercholesterolemia Qualified Code(s): E78.00 - Pure hypercholesterolemia, unspecified; E78.0 - Pure hypercholesterolemia Assessment/Plan - Problems (1) ALICIA (acute kidney injury) Assessment/Plan: -resolved -Nephrology on board Problems reviewed: Yes Code(s): N17.9 - ACUTE KIDNEY FAILURE, UNSPECIFIED (2) Post-operative infection Assessment/Plan: -ID consult on board -IV Vanco+ Cefazolin---> will need PICC line Microbiology 01/17/20 14:15 Chest Gram Stain - Final 01/14/20 06:45 Blood - Peripheral Venous Blood Culture - Preliminary NO GROWTH OBTAINED AFTER 96 HOURS, INCUBATION TO CONTINUE FOR 1 DAYS. 01/14/20 06:40 Blood - Peripheral Venous Blood Culture - Final Staphylococcus Aureus 01/11/20 05:58 Blood - Peripheral Venous Blood Culture - Final NO GROWTH AFTER 5 DAYS INCUBATION 01/11/20 05:52 Blood - Peripheral Venous Blood Culture - Final NO GROWTH AFTER 5 DAYS INCUBATION 01/09/20 10:10 Thigh - Right Gram Stain - Final 01/09/20 10:10 Thigh - Right Wound Culture - Final Staphylococcus Aureus Finegoldia Magna 01/09/20 09:40 Blood - Peripheral Venous Blood Culture - Final Staphylococcus Latex Coag Pos 01/09/20 09:40 Blood - Peripheral Venous Blood Culture - Final Staphylococcus Aureus 01/09/20 11:50 Urine - Urine Clean Catch Urine Culture - Final NO GROWTH OBTAINED -afebrile -leukocytosis improved Problems reviewed: Yes Code(s): T81.40XA - INFECTION FOLLOWING A PROCEDURE, UNSPECIFIED, INIT Qualifiers: Encounter type: initial encounter Postoperative infection type: unspecified type Qualified Code(s): T81.40XA - Infection following a procedure, unspecified, initial encounter (3) Staphylococcus aureus bacteremia with sepsis Assessment/Plan: as above Problems reviewed: Yes Code(s): A41.01 - SEPSIS DUE TO METHICILLIN SUSCEPTIBLE STAPHYLOCOCCUS AUREUS (4) Arterial occlusion, lower extremity Assessment/Plan: Operative Date: 01/17/20 Pre-Operative Diagnosis: Prosthetic graft infection Operation: Redo axillo-bifemoral bypass. Excision infected graft. Findings: Purulent material around prosthetic graft at site of recent surgery extending up to upper abdominal segment. Thoracic portion and fem-fem grafts had no evidence for infection. Implants: 6 mm ringed PTFE Propaten Post-Operative Diagnosis: Same as Pre-op Surgeon: Carlos Stoner -Seen by Vascular surgery today -Dressing changed by surgery -Next dressing change on Friday -Please administer morphine at least 30 mins prior to dressing change Problems reviewed: Yes Code(s): I70.209 - UNSP ATHSCL [place] ARTERIES OF EXTREMITIES, UNSP EXTREMITY (5) HLD (hyperlipidemia) Assessment/Plan: -HDL at 9 -LDL at 35 -Decrease atorvastatin to 40 mg po HS Problems reviewed: Yes Code(s): E78.5 - HYPERLIPIDEMIA, UNSPECIFIED Qualifiers: Hyperlipidemia type: pure hypercholesterolemia Qualified Code(s): E78.00 - Pure hypercholesterolemia, unspecified; E78.0 - Pure hypercholesterolemia (6) Diarrhea Assessment/Plan: -resolved -Last BM 4 days ago -Restarted Miralax daily PRN to avoid OIC -Colace 300 mg po HS Problems reviewed: Yes Code(s): R19.7 - [place], UNSPECIFIED
[2020-01-23] MEDS: DOCUSATE SODIUM 100 MG CAPSULE (FP) PO SCH (21:02)
[2020-01-23] MEDS: ATORVASTATIN CA 40 MG TABLET (FP) PO SCH (21:02)
[2020-01-24] MEDS: CEFAZOLIN 2 GM/D5W 2 GM/50 ML ML IVPB SCH ×2 (01:08→09:31)
[2020-01-24] MEDS: metroNIDAZOLE 500 MG TABLET PO SCH (06:05)
[2020-01-24] MEDS: VANCOMYCIN 1 GRAM (PRE-DOCKED) 1,000 MG/250 ML BAG IVPB SCH (06:06)
--- NOTE | 2020-01-24 08:04 | PN ---
Progress Note (short form) - Note Progress Note: VASCULAR SURGERY POD #7 s/p Redo axillo-femoral bypass and excision of infected graft Resting comfortably. Reports significant pain with each dressing change. He is oob and ambulating but limited secondary to pain. Remains afebrile since surgery. Tolerating PO diet. Denies n/v/f/c, CP, palpitations, SOB or FRANCIS. Last Vital Signs Temp Pulse Resp BP Pulse Ox 98.7 F 75 20 109/70 96 01/24/20 03:00 01/24/20 03:00 01/24/20 03:00 01/24/20 03:00 01/24/20 03:00 CBC, BMP 01/21/20 07:20 01/21/20 07:20 PE Gen: a&o, nad Resp: unlabored on RA Cx/Abd/Groin: Gross examination doesn't reveal any indication of infection. Mul tiple small incisions from chest to groin with levy insitu. Open incisions (Cx wall and right groin) minimal fibrinous exudate, serous drainage. No purulent drainage or odor Ext: all compartments soft. Warm to touch. 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 Excision infected graft. Leukocytosis resolved. Remains afebrile. -Lovenox 100mg BID, ASA & Plavix daily -OOB to chair with PT -PO pain meds PRN -Stool softners PRN -ID recommends PICC; Cefazolin 2gm IV Q8H x5 weeks -Dressing scheduled (ordered) for QOD (with 2" iodoform).....change while on rounds -Regular diet -Awaiting acceptance to [facility] for continued out-patient care Above plan discussed with Dr. Stoner and agrees Problem List - Problems (1) Staphylococcus aureus bacteremia with sepsis Code(s): A41.01 - SEPSIS DUE TO METHICILLIN SUSCEPTIBLE STAPHYLOCOCCUS AUREUS (2) Post-operative infection Code(s): T81.40XA - INFECTION FOLLOWING A PROCEDURE, UNSPECIFIED, INIT Qualifiers: Encounter type: initial encounter Postoperative infection type: unspecified type Qualified Code(s): T81.40XA - Infection following a procedure, unspecified, initial encounter (3) HLD (hyperlipidemia) Code(s): E78.5 - HYPERLIPIDEMIA, UNSPECIFIED Qualifiers: Hyperlipidemia type: pure hypercholesterolemia Qualified Code(s): E78.00 - Pure hypercholesterolemia, unspecified; E78.0 - Pure hypercholesterolemia
[2020-01-24] MEDS ORDERED: PT OWN MED DRAWER 7, Y5N ONE (09:26)
[2020-01-24] MEDS: PANTOPRAZOLE 40 MG TABLET PO SCH (09:32)
[2020-01-24] MEDS: ENOXAPARIN NA (PORCINE) 100 MG/1 ML DISP.SYRIN SQ SCH (09:32)
[2020-01-24] MEDS: CLOPIDOGREL BISULFATE 75 MG TABLET (FP) PO SCH (09:32)
[2020-01-24] MEDS: GABAPENTIN 300 MG CAPSULE PO SCH (09:32)
[2020-01-24] MEDS: ASPIRIN 81 MG CHEWABLE TABLETS PO SCH (09:32)
--- NOTE | 2020-01-24 09:59 | PN ---
Progress Note (short form) - Note Progress Note: PULMONARY Breathing better. No fevers or chills. Vital Signs Period Temp Pulse Resp BP Sys/White Pulse Ox Last 24 Hr 98.1 F-98.8 F 72-88 18-20 107-133/52-70 94-98 Gen: less tachypneic Heart: RRR Lung: decreased breath sounds at the bases Abd: soft, nontender Ext: no edema CBC, BMP 01/21/20 07:20 01/21/20 07:20 Active Medications Acetaminophen (Tylenol -) 1,000 mg PO Q6H PRN PRN Reason: PAIN LEVEL 1 - 3 Aspirin (Asa -) 81 mg PO DAILY [facility] Last Admin: 01/24/20 09:32 Dose: 81 mg Documented by: Atorvastatin Calcium (Lipitor -) 40 mg PO [facility] Last Admin: 01/23/20 21:02 Dose: 40 mg Documented by: Clopidogrel Bisulfate (Plavix -) 75 mg PO DAILY [facility] Last Admin: 01/24/20 09:32 Dose: 75 mg Documented by: Docusate Sodium (Colace -) 300 mg PO [facility] Last Admin: 01/23/20 21:02 Dose: 300 mg Documented by: Enoxaparin Sodium (Lovenox -) 100 mg SQ BID [facility] Last Admin: 01/24/20 09:32 Dose: 100 mg Documented by: Gabapentin (Neurontin -) 300 mg PO BID [facility] Last Admin: 01/24/20 09:32 Dose: 300 mg Documented by: Cefazolin Sodium/Dextrose (Ancef 2 Gm Premixed Ivpb -) 2 gm in 50 mls @ 100 mls/hr IVPB Q8H-IV [facility] Last Admin: 01/24/20 09:31 Dose: 100 mls/hr Documented by: Vancomycin HCl (Vancomycin (Pre-Docked)) 1,000 mg in 250 mls @ 166.667 mls/hr IVPB BID@0700,1900 [facility]; Protocol Last Admin: 01/24/20 06:06 Dose: 166.667 mls/hr Documented by: Metronidazole (Flagyl -) 500 mg PO TID [facility] Last Admin: 01/24/20 06:05 Dose: 500 mg Documented by: Morphine Sulfate (Morphine Sulfate) 2 mg IVPUSH Q4H PRN PRN Reason: PAIN 7-10; IF OXYCODE NT WORK Last Admin: 01/22/20 12:02 Dose: 2 mg Documented by: Oxycodone HCl (Roxicodone -) 5 mg PO Q4H PRN PRN Reason: PAIN LEVEL 4-6 Last Admin: 01/21/20 13:32 Dose: 5 mg Documented by: Oxycodone HCl (Roxicodone -) 10 mg PO Q3H PRN PRN Reason: PAIN LEVEL 7-10 Pantoprazole Sodium (Protonix -) 40 mg PO DAILY [facility] Last Admin: 01/24/20 09:32 Dose: 40 mg Documented by: Polyethylene Glycol (Miralax (For Daily Use) -) 17 gm PO DAILY PRN PRN Reason: CONSTIPATION A/P Staph Bacteremia Graft Infection Sepsis Acute Kidney Injury Hyponatremia PAD HTN Hyperlipidemia - continue antibiotics - monitor urine output, creatinine - monitor lytes - continue anticoagulation - O2 to keep Spo2 >90%
--- NOTE | 2020-01-24 10:11 | DS ---
Physical Examination Vital Signs: Vital Signs Temperature 98.7 F 01/24/20 03:00 Pulse Rate 75 01/24/20 03:00 Respiratory Rate 20 01/24/20 03:00 Blood Pressure 109/70 01/24/20 03:00 O2 Sat by Pulse Oximetry (%) 96 01/24/20 03:00 Findings/Remarks: A/P: 59 y/o M vasculopath with multiple prior vascular interventions/grafts to RLE (h/o aorto-bifem bypass in 2011, R femoral-tibial bypass in October 2017, s/p Right ilio-tibial bypass with non-reversed saphenous vein (04/08/18), s/p Right axillary-fem and fem-fem bypass (07/04), s/p Bypass from axillary graft to tibial bypass graft w/ SVG) on Lovenox with h/o multiple graft occlusions s/p thrombectomies/lysis, s/p recent lysis at the beginning of December c/b groin/wound infection, now POD 3 s/p Redo axillo-bifemoral bypass. Excision infected graft. Leukocytosis resolved. Remains afebrile. (1) ALICIA (acute kidney injury) Assessment/Plan: -resolved -Nephrology on board Problems reviewed: Yes Code(s): N17.9 - ACUTE KIDNEY FAILURE, UNSPECIFIED (2) Post-operative infection Assessment/Plan: -ID consult on board -Received IV Vanco+ Cefazolin---> will need PICC line- to continue cefazolin only 2 gm Q8H for 5 weeks total till 02/25/20 as per ID Microbiology 01/17/20 14:15 Chest Gram Stain - Final 01/14/20 06:45 Blood - Peripheral Venous Blood Culture - Preliminary NO GROWTH OBTAINED AFTER 96 HOURS, INCUBATION TO CONTINUE FOR 1 DAYS. 01/14/20 06:40 Blood - Peripheral Venous Blood Culture - Final Staphylococcus Aureus 01/11/20 05:58 Blood - Peripheral Venous Blood Culture - Final NO GROWTH AFTER 5 DAYS INCUBATION 01/11/20 05:52 Blood - Peripheral Venous Blood Culture - Final NO GROWTH AFTER 5 DAYS INCUBATION 01/09/20 10:10 Thigh - Right Gram Stain - Final 01/09/20 10:10 Thigh - Right Wound Culture - Final Staphylococcus Aureus Finegoldia Magna 01/09/20 09:40 Blood - Peripheral Venous Blood Culture - Final Staphylococcus Latex Coag Pos 01/09/20 09:40 Blood - Peripheral Venous Blood Culture - Final Staphylococcus Aureus 01/09/20 11:50 Urine - Urine Clean Catch Urine Culture - Final NO GROWTH OBTAINED -afebrile -leukocytosis improved Problems reviewed: Yes Code(s): T81.40XA - INFECTION FOLLOWING A PROCEDURE, UNSPECIFIED, INIT Qualifiers: Encounter type: initial encounter Postoperative infection type: unspecified type Qualified Code(s): T81.40XA - Infection following a procedure, unspecified, initial encounter (3) Staphylococcus aureus bacteremia with sepsis Assessment/Plan: as above Problems reviewed: Yes Code(s): A41.01 - SEPSIS DUE TO METHICILLIN SUSCEPTIBLE STAPHYLOCOCCUS AUREUS (4) Arterial occlusion, lower extremity Assessment/Plan: Operative Date: 01/17/20 Pre-Operative Diagnosis: Prosthetic graft infection Operation: Redo axillo-bifemoral bypass. Excision infected graft. Findings: Purulent material around prosthetic graft at site of recent surgery extending up to upper abdominal segment. Thoracic portion and fem-fem grafts had no evidence for infection. Implants: 6 mm ringed PTFE Propaten Post-Operative Diagnosis: Same as Pre-op Surgeon: Carlos Stoner -Seen by Vascular surgery today -Dressing changed by surgery -Next dressing change on Friday -Please administer morphine at least 30 mins prior to dressing change Problems reviewed: Yes Code(s): I70.209 - UNSP ATHSCL KASAAN ARTERIES OF EXTREMITIES, UNSP EXTREMITY (5) HLD (hyperlipidemia) Assessment/Plan: -HDL at 9 -LDL at 35 -Decreased atorvastatin to 40 mg po HS Problems reviewed: Yes Code(s): E78.5 - HYPERLIPIDEMIA, UNSPECIFIED Qualifiers: Hyperlipidemia type: pure hypercholesterolemia Qualified Code(s): E78.00 - Pure hypercholesterolemia, unspecified; E78.0 - Pure hypercholesterolemia (6) Diarrhea Assessment/Plan: -resolved -Restarted Miralax daily PRN to avoid OIC -Colace 300 mg po HS Problems reviewed: Yes Code(s): R19.7 - DIARRHEA, UNSPECIFIED Assessment/Plan See problem list Physical therapy Constitutional: Yes: Well Nourished, No Distress, Calm Cardiovascular: Yes: Regular Rate and Rhythm Respiratory: Yes: Regular, CTA Bilaterally Gastrointestinal: Yes: Normal Bowel Sounds, Soft Renal/: Yes: WNL Musculoskeletal: Yes: WNL Extremities: Yes: WNL Edema: No Peripheral Pulses WNL: Yes Wound/Incision: Yes: Dressing Dry and Intact Neurological: Yes: Alert, Oriented Psychiatric: Yes: Alert, Oriented Labs: CBC, BMP 01/21/20 07:20 01/21/20 07:20 Discharge Summary Problems reviewed: Yes Reason For Visit: SEPSIS Current Active Problems ALICIA (acute kidney injury) (Acute) Cough (Acute) Diarrhea (Acute) Post-operative infection (Acute) Sepsis (Acute) Staphylococcus aureus bacteremia with sepsis (Acute) Surgical wound dehiscence (Acute) Condition: Stable - Instructions Diet, Activity, Other Instructions: Cefazolin 2 gm Q8H for 5 weeks- finishing on 02/25/20 Wound care instructions:Dressing scheduled for QOD (with 2" iodoform packing) cover with 4x4 and abdominal pads. Referrals: Dariana yCr MD [Primary Care Provider] - Carlos Stoner MD [Staff Physician] - Disposition: SNF FACILITY - Home Medications Comprehensive Discharge Medication List: Ambulatory Orders Aspirin [ASA -] 81 mg PO DAILY #30 tab.chew 12/02/17 Clopidogrel Bisulfate [Plavix -] 75 mg PO DAILY tablet 10/07/18 Gabapentin [Neurontin -] 300 mg PO BID 01/09/20 Acetaminophen [Tylenol .Extra-Strength -] 1,000 mg PO Q6H PRN tablet 01/24/20 Aspirin [ASA -] 81 mg PO DAILY tab.chew 01/24/20 Atorvastatin Ca [Lipitor] 40 mg PO HS tablet 01/24/20 Cefazolin [Ancef -] 1 gm IM Q8H 37 Days #105 vial 01/24/20 Clopidogrel Bisulfate [Plavix -] 75 mg PO DAILY tablet 01/24/20 Docusate Sodium [Colace -] 300 mg PO HS capsule 01/24/20 Enoxaparin [Lovenox -] 100 mg SQ BID disp.syrin 01/24/20 Gabapentin [Neurontin -] 300 mg PO BID capsule 01/24/20 Pantoprazole Sodium [Protonix -] 40 mg PO DAILY tablet.ec 01/24/20 Polyethylene Glycol 3350 [Miralax 119 gm Btl -] 17 gm PO DAILY PRN bottle 01/24/20 metroNIDAZOLE [Flagyl -] 500 mg PO TID #4 tablet 01/24/20 oxyCODONE HCL [Roxicodone -] 5 mg PO Q4H PRN tablet 01/24/20 oxyCODONE HCL [Roxicodone -] 10 mg PO Q3H PRN tablet 01/24/20 Prescription Drug Monitoring Program (I-STOP) results: I-STOP reviewed and no issues identified
--- NOTE | 2020-01-24 12:08 | PN ---
Progress Note (short form) - Note Progress Note: cc: b/l leg pain s: no chest pain, palps, dizziness, dyspnea Current Medications Generic Name Dose Route Start Last Admin Trade Name Freq PRN Reason Stop Dose Admin Acetaminophen 1,000 mg 01/20/20 09:06 Tylenol - PO Q6H PRN PAIN LEVEL 1 - 3 Aspirin 81 mg 01/19/20 10:00 01/24/20 09:32 Asa - PO 81 mg DAILY GERALD Administration Atorvastatin Calcium 40 mg 01/18/20 22:00 01/23/20 21:02 Lipitor - PO 40 mg HS GERALD Administration Clopidogrel Bisulfate 75 mg 01/19/20 10:00 01/24/20 09:32 Plavix - PO 75 mg DAILY GERALD Administration Docusate Sodium 300 mg 01/20/20 22:00 01/23/20 21:02 Colace - PO 300 mg HS GERALD Administration Enoxaparin Sodium 100 mg 01/18/20 22:00 01/24/20 09:32 Lovenox - SQ 100 mg BID GERALD Administration Gabapentin 300 mg 01/18/20 22:00 01/24/20 09:32 Neurontin - PO 300 mg BID GERALD Administration Cefazolin Sodium/Dextrose 2 gm in 50 mls @ 100 mls/hr 01/18/20 18:00 01/24/20 09:31 Ancef 2 Gm Premixed Ivpb - IVPB 100 mls/hr Q8H-IV GERALD Administration Vancomycin HCl 1,000 mg in 250 mls @ 166.667 mls/hr 01/18/20 19:00 01/24/20 06:06 Vancomycin (Pre-Docked) IVPB 166.667 mls/hr BID@0700,1900 GERALD Administration Protocol Metronidazole 500 mg 01/18/20 22:00 01/24/20 06:05 Flagyl - PO 500 mg TID GERALD Administration Morphine Sulfate 2 mg 01/20/20 11:04 01/22/20 12:02 Morphine Sulfate IVPUSH 2 mg Q4H PRN Administration PAIN 7-10; IF OXYCODE NT WORK Oxycodone HCl 5 mg 01/18/20 16:02 01/21/20 13:32 Roxicodone - PO 5 mg Q4H PRN Administration PAIN LEVEL 4-6 Oxycodone HCl 10 mg 01/20/20 09:04 Roxicodone - PO Q3H PRN PAIN LEVEL 7-10 Pantoprazole Sodium 40 mg 01/19/20 10:00 01/24/20 09:32 Protonix - PO 40 mg DAILY GERALD Administration Polyethylene Glycol 17 gm 01/20/20 11:35 Miralax (For Daily Use) - PO DAILY PRN CONSTIPATION Vital Signs Period Temp Pulse Resp BP Sys/White Pulse Ox Last 24 Hr 98.2 F-98.8 F 72-88 18-20 107-133/52-70 93-98 nad no jvd rrr s1s2 no mrg cta bl nl eff aaox3 no le edema no jaundice diaphoresis abd nt nd pos bs CBC, BMP 01/21/20 07:20 01/21/20 07:20 CT chest: mild chronic lung dz with no acute pathology ecg: sr, nl intervals, no ischemic changes mibi 11/2016: no ischemia, lvef 80 echo 12/2019 nl LV function, impaired relaxation, nl RV, mild MR, tr to mild TR, mildly sclerotic AV no dysfunction a/p: 59 m hx htn, pad here with b/l leg pain, fever, bacteremia fever, wound infection, staph bacteremia, sepsis: - s/p redo axillo-fem bypass and removal of infected graft - no vegetation on echo - manage per vascular pad, history of graft thrombosis: - cont plavix, lovenox per vascular htn: -not on meds at home, stable here ALICIA: - likely prerenal, improved with IVF - renal following Prolonged QT on tele: -stable -Avoid/ minimize QT prolonging drugs
--- NOTE | 2020-01-24 13:24 | PN ---
Progress Note, Physician History of Present Illness: AWAKE, ALERT IN BED NO C/O PAIN AT REST AFEBRILE WBC IMPROVED WNL BC 8/3, 8/6 NO GROWTH OPERATIVE C/S NO GROWTH - Current Medication List Current Medications: Active Medications Acetaminophen (Tylenol -) 1,000 mg PO Q6H PRN PRN Reason: PAIN LEVEL 1 - 3 Aspirin (Asa -) 81 mg PO DAILY [facility] Last Admin: 01/24/20 09:32 Dose: 81 mg Documented by: Atorvastatin Calcium (Lipitor -) 40 mg PO [facility] Last Admin: 01/23/20 21:02 Dose: 40 mg Documented by: Clopidogrel Bisulfate (Plavix -) 75 mg PO DAILY [facility] Last Admin: 01/24/20 09:32 Dose: 75 mg Documented by: Docusate Sodium (Colace -) 300 mg PO [facility] Last Admin: 01/23/20 21:02 Dose: 300 mg Documented by: Enoxaparin Sodium (Lovenox -) 100 mg SQ BID [facility] Last Admin: 01/24/20 09:32 Dose: 100 mg Documented by: Gabapentin (Neurontin -) 300 mg PO BID [facility] Last Admin: 01/24/20 09:32 Dose: 300 mg Documented by: Cefazolin Sodium/Dextrose (Ancef 2 Gm Premixed Ivpb -) 2 gm in 50 mls @ 100 mls/hr IVPB Q8H-IV [facility] Last Admin: 01/24/20 09:31 Dose: 100 mls/hr Documented by: Morphine Sulfate (Morphine Sulfate) 2 mg IVPUSH Q4H PRN PRN Reason: PAIN 7-10; IF OXYCODE NT WORK Last Admin: 01/22/20 12:02 Dose: 2 mg Documented by: Oxycodone HCl (Roxicodone -) 5 mg PO Q4H PRN PRN Reason: PAIN LEVEL 4-6 Last Admin: 01/21/20 13:32 Dose: 5 mg Documented by: Oxycodone HCl (Roxicodone -) 10 mg PO Q3H PRN PRN Reason: PAIN LEVEL 7-10 Pantoprazole Sodium (Protonix -) 40 mg PO DAILY [facility] Last Admin: 01/24/20 09:32 Dose: 40 mg Documented by: Polyethylene Glycol (Miralax (For Daily Use) -) 17 gm PO DAILY PRN PRN Reason: CONSTIPATION - Objective Vital Signs: Vital Signs Temperature 98.2 F 01/24/20 09:30 Pulse Rate 72 01/24/20 09:30 Respiratory Rate 20 01/24/20 09:30 Blood Pressure 111/64 01/24/20 09:30 O2 Sat by Pulse Oximetry (%) 93 L 01/24/20 09:30 Constitutional: Yes: No Distress Cardiovascular: Yes: Regular Rate and Rhythm, S1, S2 Respiratory: Yes: CTA Bilaterally Gastrointestinal: Yes: Normal Bowel Sounds, Soft. 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
[2020-01-24 15:00] VITALS: BP 123/54; PULSE 74; TEMP 98.4
== END 2020-01-24 16:49 | DRG 252 ==
LOC: JER 09:04 → SUPCPDRO 09:04 → JERBED 14:54 → J4W 16:39 → JICU 01-17 20:11 → J8W 01-18 16:50
PROVIDERS: ATTEND Family Medicine
PROC: 061M0JY Bypass Right Femoral Vein to Lower Vein with Synthetic Substitute, Open Approach (ICD-10-PCS; 2020-01-17)
PROC: 0YP90JZ Removal of Synthetic Substitute from Right Lower Extremity, Open Approach (ICD-10-PCS; principal; 2020-01-17 16:00)
PROC: 02HV33Z Insertion of Infusion Device into Superior Vena Cava, Percutaneous Approach (ICD-10-PCS; 2020-01-24)
PROC: B518ZZA Fluoroscopy of Superior Vena Cava, Guidance (ICD-10-PCS; 2020-01-24)
DX: T82.7XXA Infection and inflammatory reaction due to other cardiac and vascular devices, implants and grafts, initial encounter (principal); A41.01 Sepsis due to Methicillin susceptible Staphylococcus aureus; N17.9 Acute kidney failure, unspecified; E87.1 Hypo-osmolality and hyponatremia; T81.44XA Sepsis following a procedure, initial encounter; T81.40XA Infection following a procedure, unspecified, initial encounter; I10 Essential (primary) hypertension; E78.5 Hyperlipidemia, unspecified; K21.9 Gastro-esophageal reflux disease without esophagitis; G62.9 Polyneuropathy, unspecified; R05 Cough; I70.209 Unspecified atherosclerosis of native arteries of extremities, unspecified extremity; R50.9 Fever, unspecified; J06.9 Acute upper respiratory infection, unspecified; D72.829 Elevated white blood cell count, unspecified; D69.6 Thrombocytopenia, unspecified; Z88.0 Allergy status to penicillin; R94.31 Abnormal electrocardiogram [ECG] [EKG]; R19.7 Diarrhea, unspecified; D64.9 Anemia, unspecified
CPT/HCPCS: 36415; 36430; 36569; 71045-TC-FY; 71250-TC; 72193-TC; 73701-TC-RT; 77001-TC-FY; 80048; 80053; 80061; 81003; 82272; 82550; 82553; 82803; 83036; 83605; 83721; 83735; 84443; 84484; 85025; 85027; 85610; 85730; 86850; 86900; 86901; 86922; 87040; 87070; 87086; 87186; 87205; 88300-TC; 93005; 93010; 93306-TC; 93925-TC; 94640; 94760; 97116-GP; 97161-GP; 99285-25; C1751; G0480; J0131; J1644; Q9967; U0003

== ENCOUNTER 2020-10-03 08:36 | Emergency (ER) | payer OTHER, BC ==
[2020-10-03 08:42] VITALS: BP 163/83; PULSE 91; TEMP 97.9; BMI 22.2
[2020-10-03] MEDS ORDERED: KETOROLAC TROMETHAMINE 30 MG/1 ML VIAL IM ONE (09:10)
[2020-10-03] MEDS ORDERED: KETOROLAC TROMETHAMINE 30 MG/1 ML VIAL ONE (09:23)
== END 2020-10-03 10:10 | disposition home or self-care (01) ==
LOC: JER 08:36
PROC: 3E0233Z Introduction of Anti-inflammatory into Muscle, Percutaneous Approach (ICD-10-PCS; principal; 2020-10-03)
DX: S20.211A Contusion of right front wall of thorax, initial encounter (principal)
CPT/HCPCS: 71046-TC-FY; 71101-TC-RT-FY; 99284-25

== ENCOUNTER 2023-04-05 10:34 | Emergency (ER) | payer OTHER, BC ==
[2023-04-05 10:48] VITALS: BP 162/72; PULSE 85; RESP 18; TEMP 98.3; BMI 22.4
== END 2023-04-05 13:04 | disposition home or self-care (01) ==
LOC: JERFT 10:34
DX: S43.492A Other sprain of left shoulder joint, initial encounter (principal); M25.512 Pain in left shoulder; W01.0XXA Fall on same level from slipping, tripping and stumbling without subsequent striking against object, initial encounter; X50.0XXA Overexertion from strenuous movement or load, initial encounter
CPT/HCPCS: 73030-TC-LT-FY; 99283-25

== ENCOUNTER 2023-07-06 03:59 | Emergency (ER) | payer OTHER, BC ==
[2023-07-06 04:07] VITALS: BP 163/82; PULSE 92; RESP 20; TEMP 97.6; BMI 24.0
[2023-07-06] MEDS ORDERED: OXYMETAZOLINE 0.05% NASAL SOLUTION 15 ML BOTTLE NS ONE (04:32)
== END 2023-07-06 05:29 | disposition home or self-care (01) ==
LOC: JER 03:59
DX: R04.0 Epistaxis (principal)
CPT/HCPCS: 99282-25

== ENCOUNTER 2024-08-19 12:33 | Emergency (ER) | payer OTHER, BC ==
[2024-08-19 12:48] VITALS: TEMP 98.2; BMI 20.7
[2024-08-19 14:00] LABS: THROAT:GRP A STREP NOT DETECTED (NOTDETECTED)
[2024-08-19] MEDS ORDERED: diphenhydrAMINE HCL 25 MG CAPSULE (FP) PO ONE (14:07)
[2024-08-19] MEDS ORDERED: DEXAMETHASONE SOD PHOSPHATE 10 MG/1 ML VIAL ONE (14:07)
[2024-08-19] MEDS ORDERED: RACEPINEPHRINE IH SOL 2.25% 11.25 MG/0.5 ML VIAL NEB ONE (14:07)
[2024-08-19] MEDS: RACEPINEPHRINE IH SOL 2.25% 11.25 MG/0.5 ML VIAL IH ONE (14:13)
[2024-08-19] MEDS: DEXAMETHASONE SOD PHOSPHATE 10 MG/1 ML VIAL IVPUSH ONE (14:13)
[2024-08-19] MEDS: diphenhydrAMINE HCL 25 MG CAPSULE (FP) PO ONE (14:13)
[2024-08-19 16:59] LABS: BASO % 0.3 % (0-2.0); EOS % 0.2 % (0-4.5); HEMATOCRIT 49.5 % (35.4-49); HEMOGLOBIN 16.6 GM/dL (11.7-16.9); LYMPH % 5.5 % (8-40); MCH 31.8 pg (25.7-33.7); MCHC 33.6 g/dl (32.0-35.9); MEAN CELL VOLUME 94.7 fl (80-96); MEAN PLT VOLUME 7.3 fl (7.5-11.1); MONO % 2.2 % (3.8-10.2); NEUT % 91.8 % (42.8-82.8); PLATELET COUNT 327 10^3/uL (134-434); RBC 5.23 M/mm3 (4.00-5.60); RDW 16.6 % (11.9-15.9); WHITE BLOOD COUNT 15.5 K/mm3 (4.0-10.0)
[2024-08-19 17:25] LABS: POTASSIUM 4.7 mmol/L (3.5-5.1)
[2024-08-19 17:27] LABS: ANISOCYTOSIS 2+; CALCIUM 9.5 mg/dL (8.5-10.1); MACROCYTOSIS 0
[2024-08-19 17:28] LABS: ALBUMIN 3.4 g/dl (3.4-5.0); BLOOD UREA NITROGEN 14.4 mg/dL (7-18)
[2024-08-19 17:31] LABS: CREATININE 0.8 mg/dL (0.55-1.3)
[2024-08-19 17:33] LABS: BILIRUBIN,TOTAL 0.4 mg/dL (0.2-1); TOT PROT 7.3 g/dl (6.4-8.2)
[2024-08-19] MEDS ORDERED: CLINDAMYCIN 900 MG PREMIX IVPB 900 MG/50 ML BAG IVPB ONE (23:30)
[2024-08-20 00:19] VITALS: BP 148/97; PULSE 75; RESP 18
== END 2024-08-20 00:19 | disposition short-term general hospital (02) ==
LOC: JERFT 12:33
PROC: 3E033GC Introduction of Other Therapeutic Substance into Peripheral Vein, Percutaneous Approach (ICD-10-PCS; principal; 2024-08-19)
DX: K12.2 Cellulitis and abscess of mouth (principal); J39.0 Retropharyngeal and parapharyngeal abscess; R09.81 Nasal congestion; R05.9 Cough, unspecified
CPT/HCPCS: 0241U-QW; 36415; 70360-TC-FY; 70491-TC; 71046-TC-FY; 80053; 85025; 87651; 93005; 93010; 99285-25; J1100; Q9967